=== PATIENT | female | born 1930 | race Caucasian/White ===

== ENCOUNTER → 2016-11-17 | Outpatient (CLI) | payer OTHER, MEDICARE ==
[~2016-11-17] MED LIST: ATOR-22 PO; DIPH-437 PO; FLUO40CA8 PO; [UNRECOGNIZED DRUG - REMARK] PO
--- NOTE | 2016-11-17 15:57 | DIAGNOSTIC IMAGING REPORT ---
RIGHT ANKLE MIN 3 VIEWS ROUTINE CLINICAL HISTORY: RIGHT ANKLE PAIN M25.571 Right pain COMPARISON: None. DISCUSSION: Mild lateral soft tissue edema. Ankle mortise is aligned anatomically. No acute bony abnormality. Heel spur. IMPRESSION: Heel spur. Mild soft tissue edema. No acute bony abnormality. Electronically signed by: Peter Santillan M.D. 11/17/2016 3:56 PM Dictated Date/Time: 11/17/2016 3:55 PM
== END | disposition home or self-care (01) ==
LOC: C.RAD 15:38
PROVIDERS: ATTEND Family Medicine
DX: M25.571 Pain in right ankle and joints of right foot (principal); M77.31 Calcaneal spur, right foot

== ENCOUNTER → 2018-01-12 | Outpatient (CLI) | payer OTHER, MEDICARE ==
--- NOTE | 2018-01-12 11:21 | DIAGNOSTIC IMAGING REPORT ---
L HIP UNILATERAL 2 VIEWS CLINICAL HISTORY: Left hip pain. COMPARISON: CT of the abdomen and pelvis March 05, 2009. FINDINGS: Alignment of the left hip is anatomic. There is no fracture, suspicious lesion or evidence for avascular necrosis. There is mild joint space narrowing and osteophytosis of the left hip. There is extensive vascular calcification. IMPRESSION: 1. No acute fracture. 2. Mild to moderate left hip osteoarthritis. Electronically signed by: Evin Su M.D. 01/12/2018 11:19 AM Dictated Date/Time: 01/12/2018 11:18 AM
[2018-01-12 12:16] LABS: ALBUMIN 3.7 gm/dl (3.4-5.0); ALT/SGPT 27 U/L (12-78); AST/SGOT 22 U/L (15-37); BLOOD UREA NITROGEN 18 mg/dl (7-18); CALCIUM 8.7 mg/dl (8.5-10.1); CARBON DIOXIDE 29 mmol/L (21-32); CREATININE 1.01 mg/dl (0.60-1.20); GLUCOSE 92 mg/dl (70-99); POTASSIUM 3.9 mmol/L (3.5-5.1); SODIUM 137 mmol/L (136-145)
[2018-01-12 12:19] LABS: ALKALINE PHOSPHATASE 82 U/L (45-117)
--- NOTE | 2018-01-12 13:06 | DIAGNOSTIC IMAGING REPORT ---
LUMBAR SPINE 5 VIEWS CLINICAL HISTORY: Left hip pain. Low back pain. FINDINGS: Five views of the lumbar spine are correlated with abdominal CT dated 03/05/2009. The skeletal structures are osteopenic. There is no radiographic evidence of fracture or malalignment. Vertebral body height and alignment are maintained throughout the lumbar spine. There is mild to moderate lumbar levocurvature centered at L3. Large anterior and lateral marginal osteophytes are seen throughout. The transverse and spinous processes are intact as visualized. There is no evidence of spondylolysis. Advanced facet arthropathy seen in the lower lumbar region. There is advanced disc space narrowing at L1-L2 and L2-L3 with associated endplate sclerosis. Moderate disc space narrowing is seen at the remaining lumbar levels. There is straightening of the lumbar lordosis with mild reversal centered at L2-L3. The visualized bony pelvis appears intact. Sclerotic change is seen in the sacroiliac joints. There is advanced atherosclerotic calcification of the abdominal aorta. No bowel obstruction is identified. A 1.8 cm renal calculus projects over the right lateral pelvis/proximal right ureter. Clustered calculi in the lower pole of the left kidney measure up to 1.7 cm. Numerous phleboliths are noted in the pelvis. IMPRESSION: 1. No acute bony abnormality is seen involving the lumbar spine. 2. Osteopenia with advanced lumbosacral spondylosis and scoliosis as above. 3. Bilateral renal calculi as above. The large right renal calculus projects over the right renal pelvis/proximal ureter. Clinical correlation will be required. Dictated: 01/12/2018 11:18 AM Transcribed: 01/12/2018 1:05 PM Grace Electronically signed by: Jose F Cohn M.D. 01/12/2018 1:09 PM Dictated Date/Time: 01/12/2018 11:18 AM
== END | disposition home or self-care (01) ==
LOC: C.LAB 10:34
PROVIDERS: ATTEND Nurse Practitioner Family
DX: R30.0 Dysuria (principal); R31.0 Gross hematuria; M16.12 Unilateral primary osteoarthritis, left hip; M85.88 Other specified disorders of bone density and structure, other site; M47.817 Spondylosis without myelopathy or radiculopathy, lumbosacral region; M41.9 Scoliosis, unspecified; N20.0 Calculus of kidney; Z88.2 Allergy status to sulfonamides; Z88.8 Allergy status to other drugs, medicaments and biological substances

== ENCOUNTER → 2018-01-26 | Outpatient (CLI) | payer OTHER, MEDICARE ==
[~2018-01-26] MED LIST changes: +OPTIRAY 320 IV PRN
--- NOTE | 2018-01-26 09:29 | DIAGNOSTIC IMAGING REPORT ---
CT UROGRAM CLINICAL HISTORY: Gross hematuria. COMPARISON STUDY: Abdominal CT dated 03/05/2009. TECHNIQUE: Before and following the IV administration of 120 cc of Optiray 320, CT urogram of the abdomen and pelvis is performed from the lung bases to the proximal femora. Images are reviewed in the axial, sagittal, and coronal planes. IV contrast was administered without complication. A dose lowering technique was utilized adhering to the principles of ALARA. CT DOSE: 797.55 mGycm FINDINGS: Lung bases: The heart is normal in size and without pericardial effusion. The coronary arteries and mitral annulus are densely calcified. There is a tiny hiatal hernia. A small fat-containing Bochdalek hernia is seen at the left lung base and there is elevation of left hemidiaphragm. No airspace consolidation or pleural effusion is seen. A large fat-containing Bochdalek hernia is seen at the right lung base. Liver: The contrast-enhanced liver is normal in size, contour, and attenuation. There is no intrahepatic biliary ductal dilatation. The hepatic veins and portal veins are patent. A 1.8 cm cyst is noted in the left hepatic lobe. Additional subcentimeter hypodensities also likely represent cysts but are too small for definitive characterization. Gallbladder: Unremarkable. Spleen: Normal in size and attenuation. Pancreas: Moderately atrophic and grossly unremarkable. Adrenal glands: Unremarkable. Kidneys and ureters: The contrast enhanced kidneys are atrophic, asymmetrically greater on the right. There is a 14 x 7 x 12 mm obstructing calculus in the mid right ureter seen on image #198 of the unenhanced series at the level of L4-L5. This causes moderate to severe right-sided hydroureteronephrosis. No additional right renal calculi are identified. A 14 mm nonobstructing calculus is also seen in the lower pole of left kidney. There is no left-sided hydronephrosis. There is slightly heterogeneous enhancement of the right kidney as compared to the left. There is pooling of contrast within the dilated right renal collecting system with no opacification of the right ureter during the examination. There is no enhancing renal cortical mass lesion identified. There is no evidence of urothelial lesion within the renal pelvis bilaterally or along the course of either ureter, noting nonopacification of the right ureter. Small parapelvic cysts are noted in the left. Abdominal vasculature: The abdominal aorta is normal in course and caliber noting advanced atherosclerotic calcification. Bowel: There is moderate colonic fecal retention. No bowel obstruction is seen. There is mild colonic diverticulosis without CT evidence of acute diverticulitis. The appendix is well-visualized and normal. There are duodenal diverticula. Peritoneum: There is no intraperitoneal free air or abdominal ascites. Lymphadenopathy: None. Pelvic viscera: The bladder wall is mildly trabeculated. A small diverticulum is seen posteriorly on the right measuring up to 9 mm. A 3.6 cm heterogeneously enhancing mass is identified within the left aspect of the uterine fundus. This was also seen in 2009 and likely represents a fibroid. No adnexal lesion is identified. Skeletal structures: The skeletal structures are osteopenic. There is moderate to advanced lumbar sacral spondylosis as well as scoliosis. No lytic or blastic lesions are seen. IMPRESSION: 1. There is a 14 mm obstructing calculus in the mid right ureter which causes moderate to severe right-sided hydroureteronephrosis. 2. No additional right renal calculi identified. There is a 14 mm nonobstructing left renal calculus. 3. There is no enhancing renal cortical mass, and no evidence of urothelial lesion involving the ureters. 4. A small bladder diverticulum is noted. 5. Fibroid uterus. 6. Additional findings as above. Electronically signed by: Jose F Cohn M.D. 01/26/2018 9:28 AM Dictated Date/Time: 01/26/2018 8:56 AM
== END | disposition home or self-care (01) ==
LOC: C.CTS 08:28
PROVIDERS: ATTEND Urology
DX: N20.2 Calculus of kidney with calculus of ureter (principal); D25.9 Leiomyoma of uterus, unspecified; N32.3 Diverticulum of bladder

== ENCOUNTER → 2018-02-01 | Day surgery (SDC) | payer OTHER, MEDICARE ==
[2018-01-28 11:48] VITALS: BMI 25.0
--- NOTE | 2018-01-28 12:10 | PAT Medication Instructions ---
Service Date January 28, 2018. Current Home Medication List Acetaminophen (Tylenol), 500 MG PO PRN Acetaminophen/Diphenhydramine (Tylenol Pm), 1 TAB PO HS Aspirin (Aspirin Ec), 81 MG PO QAM Atorvastatin (Lipitor), 20 MG PO QAM Fluoxetine (Prozac), 60 MG PO QAM Meloxicam (Mobic), 15 MG PO QAM Multivitamins/Minerals (Mvi With Minerals), 1 TAB PO QAM Travoprost (Travatan Z), 1 DROPS OP HS Medication Instructions For Your Scheduled Surgery - Held at surgeon's request: Aspirin (Aspirin Ec), 81 MG PO QAM Meloxicam (Mobic), 15 MG PO QAM - Hold the following medications the morning of surgery: Multivitamins/Minerals (Mvi With Minerals), 1 TAB PO QAM - Take the following medications the morning of surgery with a sip of water OTHERWISE NOTHING TO EAT OR DRINK AFTER MIDNIGHT: Atorvastatin (Lipitor), 20 MG PO QAM Fluoxetine (Prozac), 60 MG PO QAM Acetaminophen (Tylenol), 500 MG PO PRN (may take if needed up to 4 hours prior to surgery) - Take the following medications as scheduled the night before surgery: Acetaminophen/Diphenhydramine (Tylenol Pm), 1 TAB PO HS Travoprost (Travatan Z), 1 DROPS OP HS Acetaminophen (Tylenol), 500 MG PO PRN If you have any questions please call us at [phone] or [phone] or [phone]
--- NOTE | 2018-01-28 12:56 | DIAGNOSTIC IMAGING REPORT ---
CHEST 2 VIEWS ROUTINE CLINICAL HISTORY: Preoperative chest COMPARISON STUDY: CT scan dated 01/26/2018 FINDINGS: The heart is normal in size. There is no failure. There is no focal pulmonary consolidation. There are no pleural effusions. There is a 7 mm opacity at the left lung base. On the recent CT scan, this resembles focal atelectatic change. Degenerative changes are present within the dorsal spine.[ IMPRESSION: 1. No active disease in the chest 2. 7 mm opacity at the left lung base. This corresponds to an area of focal atelectasis on the recent CT scan. Electronically signed by: Jeet Marcus M.D. 01/28/2018 12:55 PM Dictated Date/Time: 01/28/2018 12:53 PM
[2018-01-28 14:30] LABS: BASO % 0.5 %; BASO ABS # 0.04 K/uL (0-0.2); EOS % 2.3 %; EOS ABS # 0.18 K/uL (0-0.5); HEMATOCRIT 42.7 % (37-47); HEMOGLOBIN 14.3 g/dL (12.0-16.0); IG# 0.02 K/uL (0.00-0.02); LYMPH % 23.5 %; LYMPH ABS # 1.84 K/uL (1.2-3.4); MEAN CELL VOLUME 96.8 fL (80-100); MEAN CORPUSCULAR HEMOGLOBIN 32.4 pg (25-34); MEAN CORPUSCULAR HGB CONC 33.5 g/dl (32-36); MEAN PLATELET VOLUME 10.3 fL (7.4-10.4); MONO ABS # 0.55 K/uL (0.11-0.59); NEUT % 66.4 %; PLATELET COUNT 263 K/uL (130-400); RED CELL DISTRIBUTION WIDTH SD 49.3 fL (36.4-46.3); WHITE BLOOD COUNT 7.83 K/uL (4.8-10.8)
[2018-01-28 14:51] LABS: CALCIUM 8.7 mg/dl (8.5-10.1); CREATININE 0.94 mg/dl (0.60-1.20); POTASSIUM 4.5 mmol/L (3.5-5.1)
[~2018-02-01] VITALS: Ht 157.5 cm; Wt 62.1 kg
[~2018-02-01] MED LIST changes: +ACET-1256 PO; +ASPI81TA28 PO; +ATROPINE SULFATE 0.1 MG/ML 5ML SYR IV PRN; +CHECK SCOPOLAMINE PATCH PLACEMENT SCH; +CIPR-255 PO; +CIPROFLOXACIN / D5W 400 MG IV SCH; +Cysto-Conray II 17.2% 250ML BOTTLE ONE; +DEXAMETHASONE SOD INJ 4 MG/ML VIAL ONE; +EpHEDrine SULFATE 50MG/5ML SYR ONE; +EpHEDrine SULFATE INJ 50 MG/ML AMP IV PRN; +EpHEDrine SULFATE INJ 50 MG/ML AMP ONE; +FENTANYL CITRATE INJ 50 MCG/1 ML 2 ML VIAL IV PRN; +FENTANYL CITRATE INJ 50 MCG/1 ML 2 ML VIAL ONE; +HydrALAZINE HCL 20 MG/ML VIAL ONE; +LIDOCAINE HCL 2% 2 ML VIAL (20MG/ML) ONE; +MELO7.5T5 PO; +MULT-513 PO; +NURSING VERBAL MED ORDER ONE; +ONDANSETRON INJ 2 MG/ML 2 ML VIAL IV PRN; +ONDANSETRON INJ 2 MG/ML 2 ML VIAL ONE; -OPTIRAY 320 IV PRN; +OXYC7.5T65 PO; +OXYCODONE/ACETAMINOPHEN 7.5-325 TAB PO PRN; +PHEN-775 PO; +PHENYLEPHRINE 100MCG/ML 5ML SYR ONE; +PROMETHAZINE HCL INJ 6.25 MG in SODIUM CHLORIDE 0.9% 50ML 50 ML IV ONE; +PROPOFOL IV EMULSION 10 MG/ML 20 ML VIAL ONE; +SCOPOLAMINE 1.5 MG TDSY TD ONE; +SODIUM CHLORIDE 0.9% 1000ML 1,000 ML IV SCH; +TRAV0.00 OP; -[UNRECOGNIZED DRUG - REMARK] PO
--- NOTE | 2018-02-01 07:04 | History & Physical Bridge Note ---
H&P Re-Evaluation Bridge Note: I have examined the patient, reviewed the History & Physical and in the interval since the performance of the History & Physical I have noted the following changes of clinical significance: No changes noted
[2018-02-01 07:11] VITALS: BP 182/77; PULSE 82; TEMP 36.5; O2SAT 97; Ht 157.5 cm; Wt 62.1 kg
--- NOTE | 2018-02-01 07:32 | Discharge Instructions ---
Discharge Instructions Date of Service February 01, 2018. Admission Reason for Admission: Stones Discharge Discharge Diagnosis / Problem: Bilateral stones Discharge Goals Goal(s): Decrease discomfort, Improve function Activity Recommendations Activity Limitations: resume your previous activity Lifting Limitations: gradually increase as tolerated Exercise/Sports Limitations: gradually increase as tolerated Shower/Bathe: no limitations . Instructions / Follow-Up Instructions / Follow-Up May have blood in urine. May have discomfort. Call if any fevers or chills. Call if any issues or concerns. Current Hospital Diet Patient's current hospital diet: Discharge Diet Recommended Diet: Regular Diet Procedures Procedures Performed: Cystoscopy, Bilateral stents, Right ureteroscopy and laser lithotripsy Pending Studies Studies pending at discharge: no Medical Emergencies . Who to Call and When: Medical Emergencies: If at any time you feel your situation is an emergency, please call 911 immediately. . Non-Emergent Contact Non-Emergency issues call your: Primary Care Provider, Urologist Call Non-Emergent contact if: you have a fever, temperature is above 101, temperature is above 101.5, your pain is not controlled, your pain is worsening , your pain is unusual for you . . "Provider Documentation" section prepared by Tejas Arguelles. .
--- NOTE | 2018-02-01 10:35 | [facility] Operative Report ---
Operative Report Operative Date February 01, 2018. Pre-Operative Diagnosis Bilateral Large Stones Post-Operative Diagnosis Same Procedure(s) Performed Cystoscopy, Bilateral retrograde pyelograms and stent placement. Right Ureteroscopy, laser lithotripsy, stone basket extraction. Surgeon Blane Estimated Blood Loss Minimal Findings Bilateral large stones with right obstructing stone Specimens Stone fragment right. Drains 6 Fr Multilength stents bilateral Anesthesia Type General Complication(s) none Disposition Recovery Room / PACU Indications Large bilateral stones with right obstruction. Approx 1.5 cm on each side. Risks and benefits discussed. Description of Procedure Patient was consented and brought back to the operating room. Patient was placed under anesthesia in the supine position and moved to the dorsal lithotomy position. Patient was prepped and draped in the regular sterile fashion. A time out was completed. A 30degree Cystoscope was placed into the bladder and the entire bladder was examined. The UO's were identified. The UO was cannulized first on the left with a catheter and a retrograde pyelogram was completed. A wire was then placed. A 6 Fr multi length stent was placed. It was confirmed in good position on fluoroscopy. The right was then cannulized and a retrograde pyelogram completed. A wire was placed. A short rigid scope was taken into the right ureter up to the stone at the mid ureter. The stone was was then pulverized with a laser to small fragments and dust. The scope was advanced to the proximal ureter. The scope was removed. A ureteral access sheath and second safety wire was placed. The flexible ureteroscope was taken into the left ureter. The entire ureter and renal pelvis were examined. The stones were identified. A laser fiber was selected and the stones were pulverized to dust and small fragments. Larger fragments were grasped and removed and sent for analysis. The entire area was once again examined. No residual large fragments or areas of concern were noted. The scope was slowly removed with the wire left in place. Contrast was placed through the scope for a pyelogram to assist in stent placement. The entire ureter was examined as the scope was slowly removed. No obstructions or other areas of concern were noted. With the wire in place, it was backloaded onto the cystoscope, and a 6 Fr Double J stent was placed. It was confirmed with fluoroscopy. With the stent in place, the bladder was emptied. The scope was removed. The patient was cleaned, aroused from anesthesia, and transferred to the pacu in stable condition having tolerated the procedure well with no complications. I was present and participated in all aspects of the procedure. The patient will be monitored in the PACU until transferred. I attest to the content of the Intraoperative Record and any orders documented therein. Any exceptions are noted below.
--- NOTE | 2018-02-01 10:55 | DIAGNOSTIC IMAGING REPORT ---
RETROGRADE INCLUDES KUB HISTORY: BILATERAL LITHOTRIPSY/STENT INSERTION FLUOROSCOPY TIME: 122 seconds. FINDINGS: 7 fluoroscopic spot images were submitted for review. Initial images demonstrate retrograde opacities in the left renal collecting system with placement of a left ureteral stent. Filling defect at the left ureteropelvic junction may represent a gas bubble. There is also retrograde opacification of the right renal collecting system. The 14 mm mid right ureteral stone is noted. A right ureteral stent was placed and decompresses the dilated right renal collecting system. Final images demonstrate extraction of the mid right ureteral stone. IMPRESSION: Fluoroscopy provided for bilateral ureteral stent placement and extraction of a mid right ureteral stone.. Electronically signed by: Arley Osorio M.D. 02/01/2018 10:54 AM Dictated Date/Time: 02/01/2018 10:53 AM
[2018-02-01] MEDS: FENTANYL CITRATE INJ 50 MCG/1 ML 2 ML VIAL IV PRN ×8 (11:16→12:25)
--- NOTE | 2018-02-01 11:29 | Anesthesiology Progress Note ---
Anesthesia Post Op Note Date & Time February 01, 2018 at 11:29 Vital Signs Pain Intensity: 3.0 Vital Signs Past 12 Hours Date Time Temp Pulse Resp B/P (MAP) Pulse Ox O2 Delivery O2 Flow Rate FiO2 02/01/18 11:13 36.5 02/01/18 11:12 183/60 02/01/18 11:10 71 20 02/01/18 11:10 71 20 92 02/01/18 11:06 180/75 02/01/18 11:05 71 18 02/01/18 11:05 70 18 92 02/01/18 11:01 183/68 02/01/18 11:00 70 19 02/01/18 11:00 70 19 99 02/01/18 10:56 186/88 02/01/18 10:55 73 19 98 02/01/18 10:55 72 19 02/01/18 10:51 171/71 02/01/18 10:50 65 14 02/01/18 10:50 64 14 100 02/01/18 10:46 175/77 02/01/18 10:45 81 15 100 02/01/18 10:45 68 15 02/01/18 10:41 167/68 02/01/18 10:35 36.5 68 16 170/70 100 Oxymask 7 02/01/18 07:11 36.5 82 18 182/77 (112) 97 Room Air Notes Mental Status: alert / awake / arousable, participated in evaluation Pt Amnestic to Procedure: Yes Nausea / Vomiting: adequately controlled Pain: adequately controlled Airway Patency, RR, SpO2: stable & adequate BP & HR: stable & adequate Hydration State: stable & adequate Anesthetic Complications: no major complications apparent
[2018-02-01 13:43] VITALS: BP 167/72; PULSE 82; TEMP 36.4; O2SAT 93
[2018-02-01 14:11] VITALS: BP 162/70; PULSE 82; TEMP 36.6; O2SAT 94
== END | disposition home or self-care (01) ==
LOC: C.ACU 01-28 11:19
PROVIDERS: ATTEND Urology
DX: N20.0 Calculus of kidney (principal); N20.1 Calculus of ureter; R30.0 Dysuria; H40.9 Unspecified glaucoma; F41.9 Anxiety disorder, unspecified; F32.9 Major depressive disorder, single episode, unspecified; R31.0 Gross hematuria; R32 Unspecified urinary incontinence; F17.200 Nicotine dependence, unspecified, uncomplicated; Z79.82 Long term (current) use of aspirin; Z79.899 Other long term (current) drug therapy

== ENCOUNTER → 2018-03-31 | Outpatient (CLI) | payer OTHER, MEDICARE ==
[~2018-03-31] MED LIST changes: -ATROPINE SULFATE 0.1 MG/ML 5ML SYR IV PRN; -CHECK SCOPOLAMINE PATCH PLACEMENT SCH; -CIPR-255 PO; -CIPROFLOXACIN / D5W 400 MG IV SCH; -Cysto-Conray II 17.2% 250ML BOTTLE ONE; -DEXAMETHASONE SOD INJ 4 MG/ML VIAL ONE; -EpHEDrine SULFATE 50MG/5ML SYR ONE; -EpHEDrine SULFATE INJ 50 MG/ML AMP IV PRN; -EpHEDrine SULFATE INJ 50 MG/ML AMP ONE; -FENTANYL CITRATE INJ 50 MCG/1 ML 2 ML VIAL IV PRN; -FENTANYL CITRATE INJ 50 MCG/1 ML 2 ML VIAL ONE; -HydrALAZINE HCL 20 MG/ML VIAL ONE; -LIDOCAINE HCL 2% 2 ML VIAL (20MG/ML) ONE; -NURSING VERBAL MED ORDER ONE; -ONDANSETRON INJ 2 MG/ML 2 ML VIAL IV PRN; -ONDANSETRON INJ 2 MG/ML 2 ML VIAL ONE; +OXYC-57 PO; -OXYC7.5T65 PO; -OXYCODONE/ACETAMINOPHEN 7.5-325 TAB PO PRN; -PHEN-775 PO; -PHENYLEPHRINE 100MCG/ML 5ML SYR ONE; -PROMETHAZINE HCL INJ 6.25 MG in SODIUM CHLORIDE 0.9% 50ML 50 ML IV ONE; -PROPOFOL IV EMULSION 10 MG/ML 20 ML VIAL ONE; -SCOPOLAMINE 1.5 MG TDSY TD ONE; -SODIUM CHLORIDE 0.9% 1000ML 1,000 ML IV SCH
--- NOTE | 2018-03-31 14:22 | DIAGNOSTIC IMAGING REPORT ---
RENAL ULTRASOUND HISTORY: URETER STONE COMPARISON: KUB 03/19/2018. Abdomen and pelvis CT 01/16/2018. FINDINGS: Right kidney: 10 cm. Moderate hydroureteronephrosis. There is mild urothelial thickening within the right renal pelvis. Normal corticomedullary differentiation and cortical thickness. There appears to be a 9 mm stone within the lower pole. Left kidney: 10.7 cm. Mild left hydronephrosis. There are 2 stones seen within the left kidney which measure 1 cm and 9 mm in size. Normal corticomedullary differentiation and cortical thickness. Bladder: No bladder wall thickening. IMPRESSION: 1. Moderate right and mild left hydronephrosis. 2. There is also dilatation of the right ureter with mild urothelial thickening. 3. Bilateral nephrolithiasis. Electronically signed by: Arley Osorio M.D. 03/31/2018 2:20 PM Dictated Date/Time: 03/31/2018 2:17 PM
== END | disposition home or self-care (01) ==
LOC: C.ULTR 13:06
PROVIDERS: ATTEND Urology
DX: N13.2 Hydronephrosis with renal and ureteral calculous obstruction (principal)

== ENCOUNTER → 2018-04-13 | Outpatient (CLI) | payer OTHER, MEDICARE ==
--- NOTE | 2018-04-13 08:46 | DIAGNOSTIC IMAGING REPORT ---
KUB CLINICAL HISTORY: R31.0 Gross [id number] hematuria COMPARISON STUDY: 03/19/2018 FINDINGS: Interval removal of the bilateral ureteral stents. Bilateral nephrocalcinosis. Most part unchanged. 7 mm dominant calcification lower pole left kidney unchanged. No well-defined paravertebral calcifications. IMPRESSION: Bilateral nephrocalcinosis unchanged in the prior study. No new or interval process. The above report was generated using voice recognition software. It may contain grammatical, syntax or spelling errors. Electronically signed by: Peter Santillan M.D. 04/13/2018 8:45 AM Dictated Date/Time: 04/13/2018 8:44 AM
== END | disposition home or self-care (01) ==
LOC: C.RAD 08:29
PROVIDERS: ATTEND Urology
DX: R31.0 Gross hematuria (principal); E83.59 Other disorders of calcium metabolism; N29 Other disorders of kidney and ureter in diseases classified elsewhere

== ENCOUNTER → 2018-04-13 | Outpatient (CLI) | payer OTHER, MEDICARE | END | disposition home or self-care (01) | LOC: C.LABSPEC 17:39 | PROVIDERS: ATTEND Urology | DX: N20.0 Calculus of kidney (principal) ==

== ENCOUNTER 2019-09-13 08:47 | Inpatient (IN) ==
[2019-09-13] MEDS ORDERED: MoRPHine SULFATE 4 MG/ML 1 ML CARP\\VIAL IV STA (09:12)
[2019-09-13] MEDS ORDERED: SODIUM CHLORIDE 0.9% 1000ML 1,000 ML IV SCH (09:15)
[2019-09-13] MEDS ORDERED: MoRPHine SULFATE 2 MG/ML CARP ONE (09:38)
--- NOTE | 2019-09-13 09:40 | XRay Report ---
XR pelvis 1-2V routine CLINICAL HISTORY: r hip pain pain COMPARISON: 01/12/2018 DISCUSSION: Subcapital fracture right hip. Mild superior migration right femoral shaft. Generalized degenerative change throughout all remaining bony structures. There is no evidence for so ft tissue swelling. IMPRESSION: Subcapital fracture right hip. ACT 112: Negative or not required by law. The above report was generated using voice recognition software. It may contain grammatical, syntax or spelling errors. Electronically signed by: Peter Santillan M.D. 09/13/2019 9:39 AM
--- NOTE | 2019-09-13 09:41 | XRay Report ---
XR hip RT 2V w pelvis CLINICAL HISTORY: r hip pain pain COMPARISON: None. DISCUSSION: Subcapital fracture right hip. Superior migration right femoral shaft. No evidence for di slocation. Degenerative change of all remaining bony structures. There is no evidence for soft tissue swelling. IMPRESSION: Subcapital fracture right hip. ACT 112: Negative or not required by law. The above report was generated using voice recognition software. It may contain grammatical, syntax or spelling errors. Electronically signed by: Peter Santillan M.D. 09/13/2019 9:40 AM
[2019-09-13 09:42] LABS: Appearance Urine Clear (Clear); Bacteria Urine Automated Negative (Negative); Bilirubin Urine Negative (Negative); Blood Urine Trace (Negative); Color Urine Yellow; Glucose Urine UA Negative (Negative); Ketones Urine Negative (Negative); Leukocyte Esterase Urine Trace (Negative); Nitrite Urine Negative (Negative); Protein Urine Negative (Negative); Specific Gravity Urine 1.016 (1.000-1.030); Urobilinogen Urine Negative (Negative); pH Urine 6.5 (4.5-7.5)
--- NOTE | 2019-09-13 09:42 | XRay Report ---
XR chest 1V portable CLINICAL HISTORY: fall trauma COMPARISON STUDY: 09/05/2019 FINDINGS: The bones soft tissues and hemidiaphragms are normal. The cardiomediastinal silhouette is n ormal. The lungs are clear. The pulmonary vasculature is normal. IMPRESSION: Negative chest. ACT 112: Negative or not required by law. The above report was generated using voice recognition software. It may contain grammatical, syntax or spelling errors. Electronically signed by: Peter Santillan M.D. 09/13/2019 9:40 AM
[2019-09-13] MEDS ORDERED: MoRPHine SULFATE 4 MG/ML 1 ML CARP\\VIAL IV ONE (09:45)
[2019-09-13 09:49] LABS: Basophils # (auto) 0.03 K/uL (0-0.2); Basophils % (auto) 0.2 %; Eosinophils # (auto) 0.08 K/uL (0-0.5); Eosinophils % (auto) 0.5 %; Hematocrit (blood only) 40.8 % (37-47); Immature Granulocytes # (auto) 0.12 K/uL (0.00-0.02); Immature Granulocytes % (auto) 0.8 %; Lymphocytes # (auto) 1.25 K/uL (1.2-3.4); Lymphocytes % (auto) 8.2 %; Mean Corpuscular Hemoglobin 33.1 pg (25-34); Mean Corpuscular Hgb Conc 34.3 g/dL (32-36); Mean Corpuscular Volume 96.5 fL (80-100); Mean Platelet Volume 9.5 fL (7.4-10.4); Monocytes # (auto) 1.54 K/uL (0.11-0.59); Monocytes % (auto) 10.1 %; Neutrophils # (auto) 12.25 K/uL (1.4-6.5); Neutrophils % (auto) 80.2 %; Platelet Count 454 K/uL (130-400); RDW Coefficient of Variation 14.2 % (11.5-14.5); RDW Standard Deviation 49.7 fL (36.4-46.3); Red Blood Count 4.23 M/uL (4.2-5.4); White Blood Count 15.27 K/uL (4.8-10.8)
[2019-09-13 09:58] LABS: INR 1.1 (0.9-1.1); Prothrombin Time 10.9 Seconds (9.0-12.0)
--- NOTE | 2019-09-13 10:05 | CT Scan Report ---
CT head/brain wo con CT DOSE: 537.48 mGy.cm HISTORY: Trauma fall hit head TECHNIQUE: Multiaxial CT images of the head were performed without the use of intravenous contrast. A dose lowering technique was utilized adhering to the principles of ALARA. Comparison: 09/05/2018 Findings: The paranasal sinuses and mastoid air cells are clear. The calvarium and skull base are int act. The ventricles and sulci are within normal limits. There is no mass, hematoma, midline shift, or acute infarct. Age-related chronic small vessel change and atrophy. Impression: No acute intracranial abnormality. Chronic and age-related change. ACT 112: Negative or not required by law. The above report was generated using voice recognition software. It may contain grammatical, syntax or spelling errors. Electronically signed by: Peter Santillan M.D. 09/13/2019 10:03 AM
[2019-09-13 10:10] LABS: Alanine Aminotransferase 20 U/L (12-78); Albumin Globulin Ratio 0.8 (0.9-2); Albumin Level 3.2 gm/dl (3.4-5.0); Alkaline Phosphatase 58 U/L (45-117); Aspartate Aminotransferase 25 U/L (15-37); BUN Creatinine Ratio 23.2 (10-20); Bilirubin,Total 0.6 mg/dl (0.2-1); Blood Urea Nitrogen 28 mg/dl (7-18); Calcium 9.4 mg/dl (8.5-10.1); Carbon Dioxide 25 mmol/L (21-32); Chloride 95 mmol/L (98-107); Est GFR (African American) 47.1; Est GFR (Non-African American) 40.6; Globulin 3.9 gm/dl (2.5-4.0); Glucose 102 mg/dl (70-99); Potassium 4.2 mmol/L (3.5-5.1); Sodium 129 mmol/L (136-145); Total Protein 7.1 gm/dl (6.4-8.2); Troponin I < 0.015 ng/ml (0-0.045)
[2019-09-13] MEDS ORDERED: fentaNYL citrate 100 MCG/2 ML VIAL IV ONE (10:35)
--- NOTE | 2019-09-13 11:50 | History & Physical Report ---
Date of Service September 13, 2019 Assessment & Plan (1) Hip fracture: 89-year-old female status post mechanical fall resulting in right subcapital hip fracture 4 days ago. Patient in considerable discomfort. Extremity is neurovascularly intact. Patient with no known history of cardiovascular disease, CHF or pulmonary disease. Her functional status is limited secondary to poor balance. She reports never having chest pain or dyspnea that has limited her activity. Per RCRI assessment for preoperative risk patient is low risk for perioperative major adverse cardiac event. She may proceed to surgery with no additional testing. Admit to medical floor Neurovascular checks every 4 hours Pain control with Tylenol, oxycodone 5 mg p.o. every 4 hours as needed and Dilaudid 0.5 mg IV every 2 hours as needed. Will adjust as necessary Check urine culture N.p.o. after midnight -We will hold lisinopril/HCTZ to avoid intraoperative hypotension Hold aspirin [facility] orthopedic consultationappreciate assistance -Close monitoring of postoperative wound. Patient elderly, on chronic steroids and an active smoker which all may inhibit healing Present on Admission?: Yes (2) Leukocytosis: Patient with elevated WBC = 15.27. She denies fever. No obvious source of infection. Possibly reactive in setting of recent trauma. Patient also on chronic steroids, prednisone 10 mg p.o. daily. Urine culture ordered Repeat CBC in a.m. Present on Admission?: Yes (3) Hyponatremia: Sodium = 129. Patient reports decreased appetite and poor oral intake over the last few days. She appears clinically dry on exam. Suspect hypovolemic hyponatremia. IV hydration with normal saline at 80 mL/h x 2 L -Repeat BMP at 1800 to assess sodium level Present on Admission?: Yes (4) Hypertension: Blood pressure elevated, 164/85 Pain control as above Holding HCTZ/lisinopril for now. Continue to monitor. Present on Admission?: Yes (5) Hyperlipidemia: Chronic. Stable. Continue atorvastatin 20 mg p.o. daily Present on Admission?: Yes (6) Glaucoma: Chronic. Stable. Continue latanoprost drops Present on Admission?: Yes (7) Rheumatoid arthritis: Chronic. Stable. Continue prednisone 10 mg p.o. daily. Close monitoring of postoperative wound healing Continue sulfasalazine 500 mg p.o. 3 times daily We will hold meloxicam 15 mg for now (8) Depression: Patient reports experiencing depressive symptoms after her 2 years ago. States that her moods have since improved Continue duloxetine 20 mg p.o. daily Present on Admission?: Yes (9) Insomnia: Chronic. Continue Benadryl p.o. nightly (10) Tobacco use: Patient reports smoking approximately 1/2 pack/day. Encouraged her to quit smoking. -Nicotine patch. Patient reports trying this in the past and having some mild skin irritation but wishes to try it again F/E/Nnormal saline at 80 mL/h x 2 L. Monitor electrolytes and replete as needed. Will check mag and phosphorus x1. Repeat BMP at 1800 to assess sodium. Heart healthy diet. N.p.o. after midnight for possible surgery. ProphylaxisSCDs to bilateral lower extremities Codefull per discussion with patient, family at bedside Dispositionadmit to medical floor Present on Admission?: Yes History of Present Illness Chief Complaint: Right hip pain Primary Care Provider: Ben Schmidt Afia Dumont is a pleasant 89-year-old female with history of hypertension, hyperlipidemia and rheumatoid arthritis presenting with subcapital fracture of the right hip. Patient reports that on 09/09/2019 she was ambulating from her living room to her kitchen when she lost her balance and fell onto her right side. She had severe pain in the right hip immediately following the fall. She has been ambulating using a walker with some difficulty for the last 5 days. She reports she bumped her head slightly during the fall but denies loss of consciousness. Denies chest pain/palpitations/dizziness/syncope. She is complaining of left ankle pain Patient's 2 years ago. Family reports a progressive decline in patient's functional status since then. She is fairly sedentary and has poor balance. ER course: Fentanyl x 25 mcg, morphine x 4 mg, 4 mg, 2 mg, normal saline x 1 L Allergies Allergy/AdvReac Type Severity Reaction Status Date / Time Sulfa (Sulfonamide Allergy Unknown Rash Verified 09/13/19 10:58 Antibiotics) nicotine AdvReac Mild PATCH-SKIN Verified 09/13/19 10:58 IRRITATION Home Medications Home Medications Medication Instructions Recorded Confirmed Type Centrum Silver Women 1 tab PO QAM 07/06/18 09/13/19 History aspirin 81 mg PO QAM 07/06/18 09/13/19 History latanoprost 1 drp OPB HS 07/06/18 09/13/19 History acetaminophen [Acetaminophen Extra 500 mg PO DIRECTED PRN 09/05/19 09/13/19 History Strength] atorvastatin 20 mg PO DAILY 09/05/19 09/13/19 History cholecalciferol (vitamin D3) 50 mcg PO DAILY 09/05/19 09/13/19 History [Vitamin D3] diphenhydramine HCl [ZzzQuil] 0 mg PO HS 09/05/19 09/13/19 History duloxetine 20 mg PO DAILY 09/05/19 09/13/19 History lisinopril-hydrochlorothiazide 1 tab PO DAILY 09/05/19 09/13/19 History meloxicam 15 mg PO DAILY 09/05/19 09/13/19 History prednisone 10 mg PO DAILY 09/05/19 09/13/19 History sulfasalazine 500 mg PO TID 09/05/19 09/13/19 History Past Med/Surg History Medical History Anxiety (Chronic) Depression (Chronic) Dyslipidemia (Chronic) Glaucoma (Chronic) Hearing deficit (Chronic) Hyperlipidemia (Chronic) Hypertension Kidney stones (Chronic) Osteoarthritis (Chronic) Rheumatoid arthritis (Chronic) Surgical History History of cataract surgery (Resolved) left History of colonoscopy (Resolved) History of lithotripsy (Resolved) x 2 History of tooth extraction (Resolved) Nausea and vomiting after administration of anesthetic agent (Chronic) Family History (Updated 09/13/19 @ 10:49 by Ivania Cruz) Other No pertinent family history in first degree relatives Social History Preferred Language: Slovak Communication Ability: Effective Financial Planner Required: No Beliefs That Will Affect Care: None Current Living Situation: Alone Other Information That Helps Us Care for You: No Feels Safe at Home: Yes Safety Concerns: Feels Safe At This Time Smoking Status: Current every day smoker Tobacco Type: cigarettes ; Cigarettes Per Day: 10 ; Do You Dip or Chew Tobacco: No ; Second Hand Exposure: No ; Tob acco Cessation Education Requested by Patient: No Hx Alcohol Use: Yes Alcohol type: wine Hx Substance Use: No Review of Systems Review of Systems: All systems reviewed & are unremarkable except as noted in HPI & below Patient endorses occasional chills. Also with occasional nausea and poor appetite for the last few days Chronic urinary incontinence Denies fevers/chest pain/palpitations/shortness of breath/cough/wheeze/abdominal pain/diarrhea/constipation Physical Exam Physical Exam: General: Elderly female resting supine in bed, in moderate pain, non-toxic in appearance, AA&O x 4 Skin: warm, dry, intact, no rashes or lesions HEENT: NC/AT, PERRL, EOMI, anicteric sclera, conjunctiva without injection, external ear normal to inspection and nontender, nares patent, dry mucus membranes, dentition intact, no oropharyngeal lesions, neck supple, trachea midline, no LAD, no thyromegaly, no JVD Heart: +S1/S2, regular, no m/r/g Lungs: equal air entry bilaterally, no rales/rhonchi/wheezes Abd: +BS, soft, NT/ND, no masses/organomegaly/ascites Ext: warm, 2+ pulses in UE/LE bilaterally, no clubbing/cyanosis or edema, right lower extremity neurovascularly intact, externally rotated, tenderness over right hip Neuro: nonfocal, patient AA&O x 4, speech intact, no facial droop, moving all extremities on command with equal strength 5/5, patient hard of hearing Results & Data Vital Signs (Past 12 Hours) Vital Signs Temp Pulse Pulse Resp BP BP Pulse Ox 09/13/19 11:00 87 17 164/85 H 99 09/13/19 09:57 94 H 20 195/81 H 95 09/13/19 09:08 86 20 96 09/13/19 08:53 36.3 C L 95 H 18 161/70 H 93 Laboratory Results Lab Results 09/13/19 09/13/19 09/13/19 Range/Units 09:08 09:08 09:08 WBC 15.27 H (4.8-10.8) K/uL RBC 4.23 (4.2-5.4) M/uL Hgb 14.0 (12.0-16.0) g/dL Hct 40.8 (37-47) % MCV 96.5 (80-100) fL MCH 33.1 (25-34) pg MCHC 34.3 (32-36) g/dL RDW Std Deviation 49.7 H (36.4-46.3) fL RDW Coeff of Chiara 14.2 (11.5-14.5) % Plt Count 454 H (130-400) K/uL MPV 9.5 (7.4-10.4) fL Immature Gran % (Auto) 0.8 % Neut % (Auto) 80.2 % Lymph % (Auto) 8.2 % [place] % (Auto) 10.1 % Eos % (Auto) 0.5 % Baso % (Auto) 0.2 % Immature Gran # (Auto) 0.12 H (0.00-0.02) K/uL Neut # (Auto) 12.25 H (1.4-6.5) K/uL Lymph # (Auto) 1.25 (1.2-3.4) K/uL [place] # (Auto) 1.54 H (0.11-0.59) K/uL Eos # (Auto) 0.08 (0-0.5) K/uL Baso # (Auto) 0.03 (0-0.2) K/uL PT 10.9 (9.0-12.0) Seconds INR 1.1 (0.9-1.1) Sodium 129 L (136-145) mmol/L Potassium 4.2 (3.5-5.1) mmol/L Chloride 95 L (98-107) mmol/L Carbon Dioxide 25 (21-32) mmol/L Anion Gap 9.0 (3-11) BUN 28 H (7-18) mg/dl Creatinine 1.20 (0.6-1.2) mg/dl Est Cr Clr Drug Dosing Not Reportable Est GFR ( Amer) 47.1 Est GFR (Non-Af Amer) 40.6 BUN/Creatinine Ratio 23.2 H (10-20) Glucose 102 H (70-99) mg/dl Calcium 9.4 (8.5-10.1) mg/dl Total Bilirubin 0.6 (0.2-1) mg/dl AST 25 (15-37) U/L ALT 20 (12-78) U/L Alkaline Phosphatase 58 (45-117) U/L Troponin I < 0.015 (0-0.045) ng/ml Total Protein 7.1 (6.4-8.2) gm/dl Albumin 3.2 L (3.4-5.0) gm/dl Globulin 3.9 (2.5-4.0) gm/dl Albumin/Globulin Ratio 0.8 L (0.9-2) Specimen Hemolysis Urine Color Urine Appearance (Clear) Urine pH (4.5-7.5) Ur Specific [place] (1.000-1.030) Urine Protein (Negative) Urine Glucose (UA) (Negative) Urine Ketones (Negative) Urine Blood (Negative) Urine Nitrite (Negative) Urine Bilirubin (Negative) Urine Urobilinogen (Negative) Ur Leukocyte Esterase (Negative) Urine WBC (Auto) (0-5) /hpf Urine RBC (Auto) (0-4) /hpf U Hyaline Cast (Auto) (0-5) /lpf U Epithel Cells (Auto) (0-5) /lpf Urine Bacteria (Auto) (Negative) 09/13/19 Range/Units 09:24 WBC (4.8-10.8) K/uL RBC (4.2-5.4) M/uL Hgb (12.0-16.0) g/dL Hct (37-47) % MCV (80-100) fL MCH (25-34) pg MCHC (32-36) g/dL RDW Std Deviation (36.4-46.3) fL RDW Coeff of Chiara (11.5-14.5) % Plt Count (130-400) K/uL MPV (7.4-10.4) fL Immature Gran % (Auto) % Neut % (Auto) % Lymph % (Auto) % [place] % (Auto) % Eos % (Auto) % Baso % (Auto) % Immature Gran # (Auto) (0.00-0.02) K/uL Neut # (Auto) (1.4-6.5) K/uL Lymph # (Auto) (1.2-3.4) K/uL [place] # (Auto) (0.11-0.59) K/uL Eos # (Auto) (0-0.5) K/uL Baso # (Auto) (0-0.2) K/uL PT (9.0-12.0) Seconds INR (0.9-1.1) Sodium (136-145) mmol/L Potassium (3.5-5.1) mmol/L Chloride (98-107) mmol/L Carbon Dioxide (21-32) mmol/L Anion Gap (3-11) BUN (7-18) mg/dl Creatinine (0.6-1.2) mg/dl Est Cr Clr Drug Dosing Est GFR ( Amer) Est GFR (Non-Af Amer) BUN/Creatinine Ratio (10-20) Glucose (70-99) mg/dl Calcium (8.5-10.1) mg/dl Total Bilirubin (0.2-1) mg/dl AST (15-37) U/L ALT (12-78) U/L Alkaline Phosphatase (45-117) U/L Troponin I (0-0.045) ng/ml Total Protein (6.4-8.2) gm/dl Albumin (3.4-5.0) gm/dl Globulin (2.5-4.0) gm/dl Albumin/Globulin Ratio (0.9-2) Specimen Hemolysis Urine Color Yellow Urine Appearance Clear (Clear) Urine pH 6.5 (4.5-7.5) Ur Specific [place] 1.016 (1.000-1.030) Urine Protein Negative (Negative) Urine Glucose (UA) Negative (Negative) Urine Ketones Negative (Negative) Urine Blood Trace H (Negative) Urine Nitrite Negative (Negative) Urine Bilirubin Negative (Negative) Urine Urobilinogen Negative (Negative) Ur Leukocyte Esterase Trace H (Negative) Urine WBC (Auto) 5-10 H (0-5) /hpf Urine RBC (Auto) 5-10 H (0-4) /hpf U Hyaline Cast (Auto) 1-5 (0-5) /lpf U Epithel Cells (Auto) 10-20 H (0-5) /lpf Urine Bacteria (Auto) Negative (Negative) Diagnostic Findings XR chest 1V portable CLINICAL HISTORY: fall trauma COMPARISON STUDY: 09/05/2019 FINDINGS: The bones soft tissues and hemidiaphragms are normal. The cardiomediastinal silhouette is normal. The lungs are clear. The pulmonary vasculature is normal. IMPRESSION: Negative chest. ACT 112: Negative or not required by law. The above report was generated using voice recognition software. It may contain grammatical, syntax or spelling errors. Electronically signed by: Peter Santillan M.D. 09/13/2019 9:40 AM Dictated: 09/13/19939 Transcribed: 09/13/19939 CT head/brain wo con CT DOSE: 537.48 mGy.cm HISTORY: Trauma fall hit head TECHNIQUE: Multiaxial CT images of the head were performed without the use of intravenous contrast. A dose lowering technique was utilized adhering to the principles of ALARA. Comparison: 09/05/2018 Findings: The paranasal sinuses and mastoid air cells are clear. The calvarium and skull base are intact. The ventricles and sulci are within normal limits. There is no mass, hematoma, midline shift, or acute infarct. Age-related chronic small vessel change and atrophy. Impression: No acute intracranial abnormality. Chronic and age-related change. ACT 112: Negative or not required by law. The above report was generated using voice recognition software. It may contain grammatical, syntax or spelling errors. Electronically signed by: Peter Santillan M.D. 09/13/2019 10:03 AM Dictated: 09/13/19949 Transcribed: 09/13/19949 XR hip RT 2V w pelvis CLINICAL HISTORY: r hip pain pain COMPARISON: None. DISCUSSION: Subcapital fracture right hip. Superior migration right femoral shaft. No evidence for dislocation. Degenerative change of all remaining bony structures. There is no evidence for soft tissue swelling. IMPRESSION: Subcapital fracture right hip. ACT 112: Negative or not required by law. The above report was generated using voice recognition software. It may contain grammatical, syntax or spelling errors. Electronically signed by: Peter Santillan M.D. 09/13/2019 9:40 AM Dictated: 09/13/19938 Transcribed: 09/13/19938 R pelvis 1-2V routine CLINICAL HISTORY: r hip pain pain COMPARISON: 01/12/2018 DISCUSSION: Subcapital fracture right hip. Mild superior migration right femoral shaft. Generalized degenerative change throughout all remaining bony structures. There is no evidence for soft tissue swelling. IMPRESSION: Subcapital fracture right hip. ACT 112: Negative or not required by law. The above report was generated using voice recognition software. It may contain grammatical, syntax or spelling errors. Electronically signed by: Peter Santillan M.D. 09/13/2019 9:39 AM Dictated: 09/13/19937 Transcribed: 09/13/19937 ECG Additional Comments: Study shows normal sinus rhythm at 88 bpm, normal axis, DC = 112, QRS = 90, QTc = 433, no acute ischemic changes Code Status & VTE Plan Code Status Full code per discussion with patient VTE Prophylaxis Plan VTE Prophylaxis will be ordered: Yes PG Care Time/CCT Total # of Minutes Spent Total Time Spent with Patient: Total time spent is greater than 50% in coordination of care (as documented) at patient's floor/unit and/or counseling patient: (1) Hip fracture Encounter type: initial encounter Fracture type: closed Laterality: right Qualified Code(s): S72.001A - Fracture of unspecified part of neck of right femur, initial encounter for closed fracture (2) Leukocytosis Leukocytosis type: unspecified Qualified Code(s): D72.829 - Elevated white blood cell count, unspecified (3) Hypertension Hypertension type: essential hypertension Qualified Code(s): I10 - Essential (primary) hypertension (4) Hyperlipidemia Hyperlipidemia type: unspecified Qualified Code(s): E78.5 - Hyperlipidemia, unspecified (5) Glaucoma Glaucoma type: unspecified Laterality: unspecified laterality Qualified Code(s): H40.9 - Unspecified glaucoma (6) Rheumatoid arthritis Rheumatoid arthritis location: unspecified site Rheumatoid factor presence: unspecified presence Qualified Code(s): M06.9 - Rheumatoid arthritis, unspecified (7) Depression Depression Type: major depressive disorder Major depression recurrence: recurrent Active/Remission status: remission status unspecified Qualified Code(s): F33.9 - Major depressive disorder, recurrent, unspecified
[2019-09-13] MEDS ORDERED: bisacodyL 10 MG SUPP PR PRN (12:25)
[2019-09-13] MEDS ORDERED: ACETAMINOPHEN 325 MG TAB PO PRN (12:25)
[2019-09-13] MEDS ORDERED: NALOXONE HCL 0.4 MG/1 ML VIAL/CARP IV PRN (12:25)
[2019-09-13] MEDS ORDERED: HYDROmorphone INJ 0.5 MG/0.5 ML SYR IV PRN (12:25)
[2019-09-13] MEDS ORDERED: ONDANSETRON INJ 2 MG/ML 2 ML VIAL IV PRN (12:25)
[2019-09-13] MEDS ORDERED: POLYETHYLENE (MIRALAX) 17 GM PACK PO PRN (12:25)
[2019-09-13] MEDS ORDERED: MAGNESIUM HYDROXIDE SUSP 30 ML UDC PO PRN (12:25)
[2019-09-13 13:08] LABS: Magnesium 1.7 mg/dl (1.8-2.4); Phosphorus 2.7 mg/dl (2.5-4.9)
--- NOTE | 2019-09-13 13:33 | XRay Report ---
RIGHT ANKLE 2 VIEWS CLINICAL HISTORY: Right ankle pain. FINDINGS: AP and lateral portable views of the right ankle are compared to study dated 11/17/2016. The skeletal structures are osteopenic. No fracture is seen. The ankle mortise is intact. There is no lar ge joint effusion. Mild soft tissue edema is present around the ankle, greatest medially. Atheroscler otic calcification is noted in the regional arteries. IMPRESSION: Mild soft tissue swelling with no acute bony abnormality identified. Electronically signed by: Jose F Cohn M.D. 09/13/2019 1:32 PM
[2019-09-13] MEDS: SODIUM CHLORIDE 0.9% 1000ML 1,000 ML IV SCH (13:52)
--- NOTE | 2019-09-13 14:00 | Emergency Department Note ---
Entered by Ivania Cruz acting as a scribe for History of Present Illness General Chief complaint: Weakness Stated complaint: FALL,WEAKNESS,CANT STAND Time Seen by Provider: 09/13/19 09:06 Source: patient and family History of Present Illness Onset (ago): day(s) 2 Location: hip and right Pain Consistency: + other (worsening ) Maximum Pain Intensity: 10 Associated symptoms: + confusion, + diaphoresis, + nausea/vomiting (positive nausea; negative vomiting ) and + other (positive unable to move right leg; positive unable to walk; positive shaky; negative urinary symptoms; negative neck pain; negative back pain); no chest pain, no headaches and no shortness of breath Treatments prior to arrival: none The patient is a 89 year old female who presents to the Emergency Room with complaints of worsening right hip pain that began 2 days prior to arrival. Per the patient's family, the patient fell at this time but was able to walk with a walker and had no bruising. The patient's family states that the patient fell again this morning and is now unable to move her right leg and walk. Per the patient's family, the patient is nauseous, shaky, sweaty, and confused. The patient denies chest pain, shortness of breath, vomiting, urinary symptoms, headache, neck pain, and back pain. The patient's family states that the patient had a fall 8 days ago with an episode of syncope and was found to have UTI. Home Medications Home Medications Medication Instructions Recorded Confirmed Type Centrum Silver Women 1 tab PO QAM 07/06/18 09/13/19 History aspirin 81 mg PO QAM 07/06/18 09/13/19 History latanoprost 1 drp OPB HS 07/06/18 09/13/19 History acetaminophen [Acetaminophen Extra 500 mg PO DIRECTED PRN 09/05/19 09/13/19 History Strength] atorvastatin 20 mg PO DAILY 09/05/19 09/13/19 History cholecalciferol (vitamin D3) 50 mcg PO DAILY 09/05/19 09/13/19 History [Vitamin D3] diphenhydramine HCl [ZzzQuil] 0 mg PO HS 09/05/19 09/13/19 History duloxetine 20 mg PO DAILY 09/05/19 09/13/19 History lisinopril-hydrochlorothiazide 1 tab PO DAILY 09/05/19 09/13/19 History meloxicam 15 mg PO DAILY 09/05/19 09/13/19 History prednisone 10 mg PO DAILY 09/05/19 09/13/19 History sulfasalazine 500 mg PO TID 09/05/19 09/13/19 History Allergies Allergy/AdvReac Type Severity Reaction Status Date / Time Sulfa (Sulfonamide Allergy Unknown Rash Verified 09/13/19 10:58 Antibiotics) nicotine AdvReac Mild PATCH-SKIN Verified 09/13/19 10:58 IRRITATION Past Med/Surg History Medical History Anxiety (Chronic) Depression (Chronic) Dyslipidemia (Chronic) Glaucoma (Chronic) Hearing deficit (Chronic) Hyperlipidemia (Chronic) Hypertension Kidney stones (Chronic) Osteoarthritis (Chronic) Rheumatoid arthritis (Chronic) Surgical History History of cataract surgery (Resolved) left History of colonoscopy (Resolved) History of lithotripsy (Resolved) x 2 History of tooth extraction (Resolved) Nausea and vomiting after administration of anesthetic agent (Chronic) Family History (Updated 09/13/19 @ 10:49 by Ivania Cruz) Other No pertinent family history in first degree relatives Social History Preferred Language: Ch[place] Communication Ability: [employer] Required: No Beliefs That Will Affect Care: None Current Living Situation: Alone Feels Safe at Home: Yes Smoking Status: Current every day smoker Tobacco Type: cigarettes ; Cigarettes Per Day: 10 ; Second Hand Exposure: No ; Hx Alcohol Use: Yes Alcohol type: wine Hx Substance Use: No Review of Systems See HPI for pertinent positives & negatives. and A total of 10 systems reviewed and were otherwise negative Physical Exam Vital Signs Vital Signs - 24 hr 09/13/19 08:53 09/13/19 09:08 09/13/19 09:57 Temperature 36.3 C L Temperature Source Oral Pulse Rate 95 H 86 Pulse Rate [Left Finger] 94 H Pulse Rate from SpO2 Sensor Pulse Rhythm Regular Pulse Rhythm [Left Finger] Pulse Strength [Left Finger] Respiratory Rate 18 20 20 Respiratory Effort / Characteristics Non-Labored Spontaneous Respiratory Depth Normal Respiratory Pattern Blood Pressure 161/70 H Blood Pressure [Left Arm] 195/81 H Blood Pressure Mean 100 Blood Pressure Mean [Left Arm] 119 Blood Pressure Position Sitting Pulse Oximetry 93 96 95 Oxygen Delivery Method Room Air Room Air Room Air Oxygen Flow Rate Sepsis Recent Fever Within 48 Hours No Sepsis New/Unexplained Change in Mental Status No Sepsis Action Taken by Nursing No Action Required 09/13/19 11:00 Temperature Temperature Source Pulse Rate 92 H Pulse Rate [Left Finger] 87 Pulse Rate from SpO2 Sensor 90 Pulse Rhythm Pulse Rhythm [Left Finger] Regular Pulse Strength [Left Finger] Normal Respiratory Rate 23 Respiratory Effort / Characteristics Non-Labored Spontaneous Respiratory Depth Normal Respiratory Pattern Regular Blood Pressure 164/85 H Blood Pressure [Left Arm] 164/85 H Blood Pressure Mean 117 Blood Pressure Mean [Left Arm] 111 Blood Pressure Position Pulse Oximetry 96 Oxygen Delivery Method Nasal Cannula Oxygen Flow Rate 2 Sepsis Recent Fever Within 48 Hours Sepsis New/Unexplained Change in Mental Status Sepsis Action Taken by Nursing GENERAL: Laying in bed, in significant distress, holding right hip. HEAD: normal cephalic, atraumatic EYE EXAM: normal conjunctiva OROPHARYNX: no exudate, no erythema, lips, buccal mucosa, and tongue normal and mucous membranes are moist EARS: TMs clear b/l NECK: supple, no nuchal rigidity, no adenopathy, non-tender CHEST: stable to compression anteriorly and posteriorly LUNGS: clear to auscultation. Normal chest wall mechanics HEART: no murmurs, S1 normal and S2 normal ABDOMEN: abdomen soft, non-tender, normo-active bowel sounds, no masses, no rebound or guarding. PELVIS: stable to compression anteriorly and posteriorly UPPER EXTREMITIES: full active and passive range of motion of all joints without tenderness to palpation LOWER EXTREMITIES: Severe pain on palpation of the right hip. No tenderness throughout the right distal femur, knee, goddard, or ankle. DP 2/4. NEURO EXAM: Normal sensorium, cranial nerves II-XII grossly intact, normal speech, no gross weakness of arms. GCS: 15. Course Course ED COURSE: Vital signs were reviewed and showed hypertension. The patients medical record was reviewed The above diagnostic studies were performed and reviewed. ED treatments and interventions as stated above. 0905: The patient was evaluated in room B2. A complete history and physical examination was performed. 928: I checked on and updated the patient and her family. 1016: Upon reevaluation, the patient is resting comfortably. I discussed my findings with the patient and she understands and agrees with the treatment plan. Based on the patients age, coexisting illnesses, exam and lab findings the decision to treat as an inpatient was made. The patient remained stable while under my care. 1018: The patient will be evaluated for further management. I discussed the case with Dr. Ridley-[facility] Hospitalist who accepts the patient for further evaluation. Administered Medications Discontinued Medications Fentanyl Citrate (Fentanyl Citrate) 25 mcg IV NOW ONE Stop: 09/13/19 10:36 Last Admin: 09/13/19 10:54 Dose: 25 mcg Documented by: [id number] Sodium Chloride (Nss 1000ml) 1,000 mls @ 999 mls/hr IV .Q1H1M TIA Stop: 09/13/19 10:15 Last Infusion: 09/13/19 10:21 Dose: 0 mls/hr Documented by: [id number] Admin: 09/13/19 09:19 Dose: 999 mls/hr Documented by: [id number] Morphine Sulfate (Morphine Sulfate) 4 mg IV NOW STA Stop: 09/13/19 09:13 Last Admin: 09/13/19 09:17 Dose: 4 mg Documented by: [id number] Morphine Sulfate (Morphine Sulfate) Confirm Administered Dose 2 mg .ROUTE .STK- MED ONE Stop: 09/13/19 09:39 Last Admin: 09/13/19 09:41 Dose: 2 mg Documented by: [id number] Morphine Sulfate (Morphine Sulfate) 4 mg IV ONE ONE Stop: 09/13/19 09:46 Last Admin: 09/13/19 09:41 Dose: 4 mg Documented by: [id number] Medical Decision Making Differential Diagnosis Differential diagnoses include major intracranial, cervical, spinal, thoracic, abdominal, pelvic and neurologic injury. Fracture, contusion, sprain, strain, laceration, abrasions included as well. Medical Records Attestation: I reviewed the patient's medical records. Home Medications Current Medication List: was personally reviewed by me Laboratory Data Attestation: I reviewed the patient's lab results. Result diagrams: 09/13/19 09:08 09/13/19 09:08 Lab Results 09/13/19 09/13/19 09/13/19 Range/Units 09:08 09:08 09:08 WBC 15.27 H (4.8-10.8) K/uL RBC 4.23 (4.2-5.4) M/uL Hgb 14.0 (12.0-16.0) g/dL Hct 40.8 (37-47) % MCV 96.5 (80-100) fL MCH 33.1 (25-34) pg MCHC 34.3 (32-36) g/dL RDW Std Deviation 49.7 H (36.4-46.3) fL RDW Coeff of Chiara 14.2 (11.5-14.5) % Plt Count 454 H (130-400) K/uL MPV 9.5 (7.4-10.4) fL Immature Gran % (Auto) 0.8 % Neut % (Auto) 80.2 % Lymph % (Auto) 8.2 % Taylor % (Auto) 10.1 % Eos % (Auto) 0.5 % Baso % (Auto) 0.2 % Immature Gran # (Auto) 0.12 H (0.00-0.02) K/uL Neut # (Auto) 12.25 H (1.4-6.5) K/uL Lymph # (Auto) 1.25 (1.2-3.4) K/uL Taylor # (Auto) 1.54 H (0.11-0.59) K/uL Eos # (Auto) 0.08 (0-0.5) K/uL Baso # (Auto) 0.03 (0-0.2) K/uL PT 10.9 (9.0-12.0) Seconds INR 1.1 (0.9-1.1) Sodium 129 L (136-145) mmol/L Potassium 4.2 (3.5-5.1) mmol/L Chloride 95 L (98-107) mmol/L Carbon Dioxide 25 (21-32) mmol/L Anion Gap 9.0 (3-11) BUN 28 H (7-18) mg/dl Creatinine 1.20 (0.6-1.2) mg/dl Est Cr Clr Drug Dosing Not Reportable Est GFR ( Amer) 47.1 Est GFR (Non-Af Amer) 40.6 BUN/Creatinine Ratio 23.2 H (10-20) Glucose 102 H (70-99) mg/dl Calcium 9.4 (8.5-10.1) mg/dl Total Bilirubin 0.6 (0.2-1) mg/dl AST 25 (15-37) U/L ALT 20 (12-78) U/L Alkaline Phosphatase 58 (45-117) U/L Troponin I < 0.015 (0-0.045) ng/ml Total Protein 7.1 (6.4-8.2) gm/dl Albumin 3.2 L (3.4-5.0) gm/dl Globulin 3.9 (2.5-4.0) gm/dl Albumin/Globulin Ratio 0.8 L (0.9-2) Specimen Hemolysis Urine Color Urine Appearance (Clear) Urine pH (4.5-7.5) Ur Specific [place] (1.000-1.030) Urine Protein (Negative) Urine Glucose (UA) (Negative) Urine Ketones (Negative) Urine Blood (Negative) Urine Nitrite (Negative) Urine Bilirubin (Negative) Urine Urobilinogen (Negative) Ur Leukocyte Esterase (Negative) Urine WBC (Auto) (0-5) /hpf Urine RBC (Auto) (0-4) /hpf U Hyaline Cast (Auto) (0-5) /lpf U Epithel Cells (Auto) (0-5) /lpf Urine Bacteria (Auto) (Negative) 09/13/19 Range/Units 09:24 WBC (4.8-10.8) K/uL RBC (4.2-5.4) M/uL Hgb (12.0-16.0) g/dL Hct (37-47) % MCV (80-100) fL MCH (25-34) pg MCHC (32-36) g/dL RDW Std Deviation (36.4-46.3) fL RDW Coeff of Chiara (11.5-14.5) % Plt Count (130-400) K/uL MPV (7.4-10.4) fL Immature Gran % (Auto) % Neut % (Auto) % Lymph % (Auto) % Taylor % (Auto) % Eos % (Auto) % Baso % (Auto) % Immature Gran # (Auto) (0.00-0.02) K/uL Neut # (Auto) (1.4-6.5) K/uL Lymph # (Auto) (1.2-3.4) K/uL Taylor # (Auto) (0.11-0.59) K/uL Eos # (Auto) (0-0.5) K/uL Baso # (Auto) (0-0.2) K/uL PT (9.0-12.0) Seconds INR (0.9-1.1) Sodium (136-145) mmol/L Potassium (3.5-5.1) mmol/L Chloride (98-107) mmol/L Carbon Dioxide (21-32) mmol/L Anion Gap (3-11) BUN (7-18) mg/dl Creatinine (0.6-1.2) mg/dl Est Cr Clr Drug Dosing Est GFR ( Amer) Est GFR (Non-Af Amer) BUN/Creatinine Ratio (10-20) Glucose (70-99) mg/dl Calcium (8.5-10.1) mg/dl Total Bilirubin (0.2-1) mg/dl AST (15-37) U/L ALT (12-78) U/L Alkaline Phosphatase (45-117) U/L Troponin I (0-0.045) ng/ml Total Protein (6.4-8.2) gm/dl Albumin (3.4-5.0) gm/dl Globulin (2.5-4.0) gm/dl Albumin/Globulin Ratio (0.9-2) Specimen Hemolysis Urine Color Yellow Urine Appearance Clear (Clear) Urine pH 6.5 (4.5-7.5) Ur Specific [place] 1.016 (1.000-1.030) Urine Protein Negative (Negative) Urine Glucose (UA) Negative (Negative) Urine Ketones Negative (Negative) Urine Blood Trace H (Negative) Urine Nitrite Negative (Negative) Urine Bilirubin Negative (Negative) Urine Urobilinogen Negative (Negative) Ur Leukocyte Esterase Trace H (Negative) Urine WBC (Auto) 5-10 H (0-5) /hpf Urine RBC (Auto) 5-10 H (0-4) /hpf U Hyaline Cast (Auto) 1-5 (0-5) /lpf U Epithel Cells (Auto) 10-20 H (0-5) /lpf Urine Bacteria (Auto) Negative (Negative) Imaging Data Radiologist's Impression: Radiology results as stated below per my review and the radiologist's interpretation: XR chest 1V portable CLINICAL HISTORY: fall trauma COMPARISON STUDY: 09/05/2019 FINDINGS: The bones soft tissues and hemidiaphragms are normal. The cardiomediastinal silhouette is normal. The lungs are clear. The pulmonary vasculature is normal. IMPRESSION: Negative chest. ACT 112: Negative or not required by law. The above report was generated using voice recognition software. It may contain grammatical, syntax or spelling errors. Electronically signed by: Peter Santillan M.D. 09/13/2019 9:40 AM XR hip RT 2V w pelvis CLINICAL HISTORY: r hip pain pain COMPARISON: None. DISCUSSION: Subcapital fracture right hip. Superior migration right femoral shaft. No evidence for dislocation. Degenerative change of all remaining bony structures. There is no evidence for soft tissue swelling. IMPRESSION: Subcapital fracture right hip. ACT 112: Negative or not required by law. The above report was generated using voice recognition software. It may contain grammatical, syntax or spelling errors. Electronically signed by: Peter Santillan M.D. 09/13/2019 9:40 AM XR pelvis 1-2V routine CLINICAL HISTORY: r hip pain pain COMPARISON: 01/12/2018 DISCUSSION: Subcapital fracture right hip. Mild superior migration right femoral shaft. Generalized degenerative change throughout all remaining bony structures. There is no evidence for soft tissue swelling. IMPRESSION: Subcapital fracture right hip. ACT 112: Negative or not required by law. The above report was generated using voice recognition software. It may contain grammatical, syntax or spelling errors. Electronically signed by: Peter Santillan M.D. 09/13/2019 9:[address] head/brain wo con CT DOSE: 537.48 mGy.cm HISTORY: Trauma fall hit head TECHNIQUE: Multiaxial CT images of the head were performed without the use of intravenous contrast. A dose lowering technique was utilized adhering to the principles of ALARA. Comparison: 09/05/2018 Findings: The paranasal sinuses and mastoid air cells are clear. The calvarium and skull base are intact. The ventricles and sulci are within normal limits. There is no mass, hematoma, midline shift, or acute infarct. Age-related chronic small vessel change and atrophy. Impression: No acute intracranial abnormality. Chronic and age-related change. ACT 112: Negative or not required by law. The above report was generated using voice recognition software. It may contain grammatical, syntax or spelling errors. Electronically signed by: Peter Santillan M.D. 09/13/2019 10:03 AM ECG Data Attestation: I personally reviewed and interpreted this ECG as follows: Indication: + weakness Rate (beats per minute): 88 Rhythm: + sinus rhythm ECG Intervals/blocks: + Normal QT-c ECG Yale: + Normal ECG Findings: + Other (poor baseline); no PVCs Blood Pressure Blood Pressure Findings: Elevated blood pressure Blood Pressure Disposition: elevated BP felt to be situational MDM Narrative Patient is a 9-year-old female who presents the ER for multiple falls recently. Today she fell and she is unable to walk. Severe pain in the right hip. IV was established blood work was obtained showed a mild leukocytosis of 15,000. No significant anemia. BMP with mild hyponatremia. LFTs bilirubin and troponin was unremarkable. Troponin was negative. UA was contaminated. X-rays of the pelvis and hip show right subcapital fracture. CT head was negative. Patient family were updated bedside. Patient was given IV fluids and multiple dose of IV narcotics. Patient was discussed with the hospitalist admitted for further work-up. Impression & Plan Hip fracture, Leukocytosis, Hyponatremia Discharge Plan Visit Data *Final* Discharge Date/Time: 09/13/19 11:58 Chief Complaint: Weakness Stated Complaint: FALL,WEAKNESS,CANT STAND ED Provider: Newton Fonseca Discharge Problem: Hip fracture, Leukocytosis, Hyponatremia Patient Disposition: Admitted As Inpatient Discharge Instructions Interventions: ED Discharge Assessment Last Done: 09/13/19 11:58 Discharge Problem: Hip fracture Qualifiers: Encounter type: initial encounter Fracture type: closed Laterality: right Qualified Code(s): S72.001A - Fracture of unspecified part of neck of right femur, initial encounter for closed fracture Leukocytosis Qualifiers: Leukocytosis type: unspecified Qualified Code(s): D72.829 - Elevated white blood cell count, unspecified The scribe's documentation has been prepared under my direction and personally reviewed by me in its entirety. I confirm that the note above accurately reflects all work, treatment, procedures, and medical decision making performed by me.
[2019-09-13] MEDS: OXYCODONE HCL IR 5 MG TAB (IMMEDIATE RELEASE) PO PRN ×2 (14:01→21:54)
--- NOTE | 2019-09-13 14:18 | Orthopedic Consultation ---
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 After orthopedic consult discussing the patients treatment options of conservative versus surgical intervention, the patient agreed for a planned hemiarthroplasty. Since the patient was ambulatory prior to the injury and to avoid the risks of bed sores, pulmonary complications, and to give the patient the best chance for ambulation, I recommended surgery. The patient understands the risks of surgery, which include but are not limited to: bleeding, infection, re-operatio n, damage to nerves and arteries, continued pain, failure of the hardware, fracture, dislocation, DVT, NV, stroke, and . In addition the patient is aware of the 20-30% morbidity associated with hip fracture for up to 1 year following a hip fracture. The patient understands all of these instructions and explanations, all of their questions have been satisfactorily addressed. The patient has elected to proceed with surgery and the informed consent was signed. The patient has been placed on the add-on schedule for tomorrow as she unfortunately had eaten just prior to my consultation. We will proceed with surgery tomorrow as long as she remains medically stable and cleared per the primary service. Continue pain control. NPO with fluids after midnight. The patient has been admitted to the Hospitalist service. Spoke with the primary service, and 1 g of Ancef will be on-call to the OR for tomorrow, and teds and SCDs can be applied to the left lower extremity. Present on Admission?: Yes History of Present Illness Reason for Consultation: Right hip fracture Requesting Physician: Albert Santana M.D. Attending Physician: Earline Ridley DO History of Present Illness Afia is a pleasant 89-year-old female, who fell 4 days ago injuring her right hip. She states that she has been having balance problems,, but only occasionally will use a cane prior to this fall. She had been using a walker since the fall. She was brought to emergency department by her family. X-rays were obtained. She was admitted to the hospitalist service and I was consult did for further evaluation and treatment. She denies any other complaints or LOC. Allergies Allergy/AdvReac Type Severity Reaction Status Date / Time Sulfa (Sulfonamide Allergy Unknown Rash Verified 09/13/19 10:58 Antibiotics) nicotine AdvReac Mild PATCH-SKIN Verified 09/13/19 10:58 IRRITATION Home Medications Home Medications Medication Instructions Recorded Confirmed Type Centrum Silver Women 1 tab PO QAM 07/06/18 09/13/19 History aspirin 81 mg PO QAM 07/06/18 09/13/19 History latanoprost 1 drp OPB HS 07/06/18 09/13/19 History acetaminophen [Acetaminophen Extra 500 mg PO DIRECTED PRN 09/05/19 09/13/19 History Strength] atorvastatin 20 mg PO DAILY 09/05/19 09/13/19 History cholecalciferol (vitamin D3) 50 mcg PO DAILY 09/05/19 09/13/19 History [Vitamin D3] diphenhydramine HCl [ZzzQuil] 0 mg PO HS 09/05/19 09/13/19 History duloxetine 20 mg PO DAILY 09/05/19 09/13/19 History lisinopril-hydrochlorothiazide 1 tab PO DAILY 09/05/19 09/13/19 History meloxicam 15 mg PO DAILY 09/05/19 09/13/19 History prednisone 10 mg PO DAILY 09/05/19 09/13/19 History sulfasalazine 500 mg PO TID 09/05/19 09/13/19 History Patient History Medical History Anxiety (Chronic) Depression (Chronic) Dyslipidemia (Chronic) Glaucoma (Chronic) Hearing deficit (Chronic) Hyperlipidemia (Chronic) Hypertension Kidney stones (Chronic) Osteoarthritis (Chronic) Rheumatoid arthritis (Chronic) Surgical History History of cataract surgery (Resolved) left History of colonoscopy (Resolved) History of lithotripsy (Resolved) x 2 History of tooth extraction (Resolved) Nausea and vomiting after administration of anesthetic agent (Chronic) Family History (Updated 09/13/19 @ 10:49 by Ivania Cruz) Other No pertinent family history in first degree relatives Social History Preferred Language: Italian Communication Ability: Effective Customer Engagement Representative Required: No Beliefs That Will Affect Care: None marital status: / Current Living Situation: Alone Feels Safe at Home: Yes Smoking Status: Current every day smoker Tobacco Type: cigarettes ; Cigarettes Per Day: 10 ; Second Hand Exposure: No ; Hx Alcohol Use: Yes Alcohol type: wine Hx Substance Use: No Review of Systems Review of Systems: All systems reviewed & are unremarkable except as noted in HPI & below Physical Exam Physical Exam: RLE: 2+ DP pulse. Sensation light touch intact distally. She is able to wiggle her toes up and down. Calf is soft and nontender. Hip is shortened and externally rotated. Results & Data Vital Signs (Past 12 Hours) Vital Signs Temp Pulse Pulse Resp BP BP Pulse Ox 09/13/19 12:20 36.9 C 85 16 157/69 H 94 09/13/19 11:30 86 19 157/74 H 99 09/13/19 11:00 92 H 87 23 164/85 H 164/85 H 96 09/13/19 09:57 94 H 20 195/81 H 95 09/13/19 09:08 86 20 96 09/13/19 08:53 36.3 C L 95 H 18 161/70 H 93 Laboratory Results 09/13/19 09/13/19 09/13/19 Range/Units 12:35 12:35 09:24 WBC (4.8-10.8) K/uL RBC (4.2-5.4) M/uL Hgb (12.0-16.0) g/dL Hct (37-47) % MCV (80-100) fL MCH (25-34) pg MCHC (32-36) g/dL RDW Std Deviation (36.4-46.3) fL RDW Coeff of Chiara (11.5-14.5) % Plt Count (130-400) K/uL MPV (7.4-10.4) fL Immature Gran % (Auto) % Neut % (Auto) % Lymph % (Auto) % [place] % (Auto) % Eos % (Auto) % Baso % (Auto) % Immature Gran # (Auto) (0.00-0.02) K/uL Neut # (Auto) (1.4-6.5) K/uL Lymph # (Auto) (1.2-3.4) K/uL [place] # (Auto) (0.11-0.59) K/uL Eos # (Auto) (0-0.5) K/uL Baso # (Auto) (0-0.2) K/uL PT (9.0-12.0) Seconds INR (0.9-1.1) Sodium (136-145) mmol/L Potassium (3.5-5.1) mmol/L Chloride (98-107) mmol/L Carbon Dioxide (21-32) mmol/L Anion Gap (3-11) BUN (7-18) mg/dl Creatinine (0.6-1.2) mg/dl Est Cr Clr Drug Dosing Est GFR ( Amer) Est GFR (Non-Af Amer) BUN/Creatinine Ratio (10-20) Glucose (70-99) mg/dl Calcium (8.5-10.1) mg/dl Phosphorus 2.7 (2.5-4.9) mg/dl Magnesium 1.7 L (1.8-2.4) mg/dl Total Bilirubin (0.2-1) mg/dl AST (15-37) U/L ALT (12-78) U/L Alkaline Phosphatase (45-117) U/L Troponin I (0-0.045) ng/ml Total Protein (6.4-8.2) gm/dl Albumin (3.4-5.0) gm/dl Globulin (2.5-4.0) gm/dl Albumin/Globulin Ratio (0.9-2) Specimen Hemolysis Urine Color Yellow Urine Appearance Clear (Clear) Urine pH 6.5 (4.5-7.5) Ur Specific [place] 1.016 (1.000-1.030) Urine Protein Negative (Negative) Urine Glucose (UA) Negative (Negative) Urine Ketones Negative (Negative) Urine Blood Trace H (Negative) Urine Nitrite Negative (Negative) Urine Bilirubin Negative (Negative) Urine Urobilinogen Negative (Negative) Ur Leukocyte Esterase Trace H (Negative) Urine WBC (Auto) 5-10 H (0-5) /hpf Urine RBC (Auto) 5-10 H (0-4) /hpf U Hyaline Cast (Auto) 1-5 (0-5) /lpf U Epithel Cells (Auto) 10-20 H (0-5) /lpf Urine Bacteria (Auto) Negative (Negative) Blood Type O Positive Antibody Screen NEGATIVE 09/13/19 09/13/19 09/13/19 Range/Units 09:08 09:08 09:08 WBC 15.27 H (4.8-10.8) K/uL RBC 4.23 (4.2-5.4) M/uL Hgb 14.0 (12.0-16.0) g/dL Hct 40.8 (37-47) % MCV 96.5 (80-100) fL MCH 33.1 (25-34) pg MCHC 34.3 (32-36) g/dL RDW Std Deviation 49.7 H (36.4-46.3) fL RDW Coeff of Chiara 14.2 (11.5-14.5) % Plt Count 454 H (130-400) K/uL MPV 9.5 (7.4-10.4) fL Immature Gran % (Auto) 0.8 % Neut % (Auto) 80.2 % Lymph % (Auto) 8.2 % [place] % (Auto) 10.1 % Eos % (Auto) 0.5 % Baso % (Auto) 0.2 % Immature Gran # (Auto) 0.12 H (0.00-0.02) K/uL Neut # (Auto) 12.25 H (1.4-6.5) K/uL Lymph # (Auto) 1.25 (1.2-3.4) K/uL [place] # (Auto) 1.54 H (0.11-0.59) K/uL Eos # (Auto) 0.08 (0-0.5) K/uL Baso # (Auto) 0.03 (0-0.2) K/uL PT 10.9 (9.0-12.0) Seconds INR 1.1 (0.9-1.1) Sodium 129 L (136-145) mmol/L Potassium 4.2 (3.5-5.1) mmol/L Chloride 95 L (98-107) mmol/L Carbon Dioxide 25 (21-32) mmol/L Anion Gap 9.0 (3-11) BUN 28 H (7-18) mg/dl Creatinine 1.20 (0.6-1.2) mg/dl Est Cr Clr Drug Dosing Not Reportable Est GFR ( Amer) 47.1 Est GFR (Non-Af Amer) 40.6 BUN/Creatinine Ratio 23.2 H (10-20) Glucose 102 H (70-99) mg/dl Calcium 9.4 (8.5-10.1) mg/dl Phosphorus (2.5-4.9) mg/dl Magnesium (1.8-2.4) mg/dl Total Bilirubin 0.6 (0.2-1) mg/dl AST 25 (15-37) U/L ALT 20 (12-78) U/L Alkaline Phosphatase 58 (45-117) U/L Troponin I < 0.015 (0-0.045) ng/ml Total Protein 7.1 (6.4-8.2) gm/dl Albumin 3.2 L (3.4-5.0) gm/dl Globulin 3.9 (2.5-4.0) gm/dl Albumin/Globulin Ratio 0.8 L (0.9-2) Specimen Hemolysis Urine Color Urine Appearance (Clear) Urine pH (4.5-7.5) Ur Specific [place] (1.000-1.030) Urine Protein (Negative) Urine Glucose (UA) (Negative) Urine Ketones (Negative) Urine Blood (Negative) Urine Nitrite (Negative) Urine Bilirubin (Negative) Urine Urobilinogen (Negative) Ur Leukocyte Esterase (Negative) Urine WBC (Auto) (0-5) /hpf Urine RBC (Auto) (0-4) /hpf U Hyaline Cast (Auto) (0-5) /lpf U Epithel Cells (Auto) (0-5) /lpf Urine Bacteria (Auto) (Negative) Blood Type Antibody Screen Diagnostic Findings AP pelvis, AP and lateral right hip, show a displaced subcapital hip fracture. (1) Hip fracture Encounter type: initial encounter Fracture type: closed Laterality: right Qualified Code(s): S72.001A - Fracture of unspecified part of neck of right femur, initial encounter for closed fracture
[2019-09-13] MEDS: sulfaSALAzine 500 MG TABEC PO SCH ×2 (14:21→20:54)
[2019-09-13 19:17] LABS: Calcium 8.4 mg/dl (8.5-10.1); Potassium 4.2 mmol/L (3.5-5.1)
[2019-09-13 19:33] LABS: BUN Creatinine Ratio 24.4 (10-20); Creatinine Clr Calc Pharmacy 33.6 ml/min; Est GFR (African American) 67.5; Est GFR (Non-African American) 58.3
[2019-09-13] MEDS: DOCUSATE SODIUM/SENNA 50/8.6MG TAB PO SCH (20:54)
[2019-09-13] MEDS: LATANOPROST 0.005% OP SOLN 2.5 ML BTL OPB SCH (21:52)
[2019-09-14] MEDS: SODIUM CHLORIDE 0.9% 1000ML 1,000 ML IV SCH (01:38)
[2019-09-14] MEDS ORDERED: CEFAZOLIN 1000MG 1,000 MG/7.5 ML SYR IV ONE (06:00)
[2019-09-14 06:40] LABS: Basophils # (auto) 0.02 K/uL (0-0.2); Basophils % (auto) 0.2 %; Eosinophils # (auto) 0.09 K/uL (0-0.5); Eosinophils % (auto) 1.1 %; Hemoglobin 12.5 g/dL (12.0-16.0); Immature Granulocytes # (auto) 0.06 K/uL (0.00-0.02); Immature Granulocytes % (auto) 0.7 %; Lymphocytes # (auto) 1.37 K/uL (1.2-3.4); Lymphocytes % (auto) 16.9 %; Mean Corpuscular Hemoglobin 33.2 pg (25-34); Mean Corpuscular Hgb Conc 34.7 g/dL (32-36); Mean Corpuscular Volume 95.5 fL (80-100); Monocytes # (auto) 0.95 K/uL (0.11-0.59); Monocytes % (auto) 11.7 %; Neutrophils # (auto) 5.64 K/uL (1.4-6.5); Neutrophils % (auto) 69.4 %; Platelet Count 325 K/uL (130-400); RDW Coefficient of Variation 14.2 % (11.5-14.5); RDW Standard Deviation 49.3 fL (36.4-46.3); Red Blood Count 3.77 M/uL (4.2-5.4); White Blood Count 8.13 K/uL (4.8-10.8)
--- NOTE | 2019-09-14 07:10 | Anesthesiology Consultation ---
Date of Service September 14, 2019 History Surgery Operation Date: 09/14/19 07:30 Proposed Procedures p Right Hip Hemiarthroplasty - Albert Reyna Santana MD Height/Weight Height: 5 ft 1 in Weight: 55.8 kg Allergies Allergy/AdvReac Type Severity Reaction Status Date / Time Sulfa (Sulfonamide Allergy Unknown Rash Verified 09/13/19 10:58 Antibiotics) nicotine AdvReac Mild PATCH-SKIN Verified 09/13/19 10:58 IRRITATION Medications Home Medications Medication Instructions Recorded Confirmed Last Taken Centrum Silver Women 1 tab PO QAM 07/06/18 09/13/19 09/05/19 aspirin 81 mg PO QAM 07/06/18 09/13/19 09/05/19 latanoprost 1 drp OPB HS 07/06/18 09/13/19 09/04/19 acetaminophen [Acetaminophen Extra 500 mg PO DIRECTED PRN 09/05/19 09/13/19 Unknown Strength] atorvastatin 20 mg PO DAILY 09/05/19 09/13/19 09/05/19 cholecalciferol (vitamin D3) 50 mcg PO DAILY 09/05/19 09/13/19 09/05/19 [Vitamin D3] diphenhydramine HCl [ZzzQuil] 0 mg PO HS 09/05/19 09/13/19 09/04/19 duloxetine 20 mg PO DAILY 09/05/19 09/13/19 09/05/19 lisinopril-hydrochlorothiazide 1 tab PO DAILY 09/05/19 09/13/19 09/05/19 meloxicam 15 mg PO DAILY 09/05/19 09/13/19 09/05/19 prednisone 10 mg PO DAILY 09/05/19 09/13/19 09/05/19 sulfasalazine 500 mg PO TID 09/05/19 09/13/19 09/05/19 PM DOSE Active Medications Generic Name Dose Route Start Last Admin Trade Name Freq PRN Reason Stop Dose Admin Diphenhydramine HCl 25 mg 09/13/19 21:00 09/13/19 20:53 Benadryl Capsule PO 10/13/19 20:59 25 mg HS TIA Administration Sodium Chloride 1,000 mls @ 80 mls/hr 09/13/19 12:25 09/14/19 01:38 Nss 1000ml IV 01/01/20 13:24 80 mls/hr .[id number] TIA Administration Latanoprost 1 drops 09/13/19 21:00 09/13/19 21:52 Xalatan Oph OPB 10/13/19 20:59 1 drops HS TIA Administration Oxycodone HCl 5 mg 09/13/19 12:25 09/13/19 21:54 Roxicodone Immediate Rel PO 09/27/19 12:24 5 mg Q4H PRN Administration MODERATE Pain (Scale 4,5,6) Senna/Docusate Sodium 2 tab 09/13/19 21:00 09/13/19 20:54 Senokot S PO 10/13/19 20:59 2 tab HS TIA Administration Sulfadiazine 500 mg 09/13/19 14:00 09/13/19 20:54 Azulfidine Delayed Rel PO 10/13/19 13:59 500 mg TID TIA Administration NPO Date Last Intake of Fluids: 09/13/19 Time Last Intake of Fluids: 21:00 Time Last Intake of Solids: 19:30 Past Medical History Medical History Anxiety (Chronic) Depression (Chronic) Dyslipidemia (Chronic) Glaucoma (Chronic) Hearing deficit (Chronic) Hyperlipidemia (Chronic) Hypertension Kidney stones (Chronic) Osteoarthritis (Chronic) Rheumatoid arthritis (Chronic) Tobacco use Past Family History Family History Other No pertinent family history in first degree relatives Past Surgical History Surgical History History of cataract surgery (Resolved) left History of colonoscopy (Resolved) History of lithotripsy (Resolved) x 2 History of tooth extraction (Resolved) Nausea and vomiting after administration of anesthetic agent (Chronic) Social History Smoking Status: Current every day smoker tobacco type: cigarettes Smoking cigarettes per day: 10 Do You Dip or Chew Tobacco: No Hx Alcohol Use: Yes Alcohol type: wine alcohol intake frequency: holidays/special occasions only Hx Substance Use: No substance use type: does not use Physical Exam Vital Signs Last Vital Signs Temp 36.6 C 09/14/19 07:11 Pulse 94 H 09/14/19 07:11 Resp 16 09/14/19 07:11 BP 170/81 H 09/14/19 07:11 Pulse Ox 91 09/14/19 07:11 Testing Laboratory Results 09/14/19 06:14 09/14/19 06:14 PT 10.9 Seconds (9.0-12.0) 09/13/19 09:08 INR 1.1 (0.9-1.1) 09/13/19 09:08 Urine Color Yellow 09/13/19 09:24 Urine Appearance Clear (Clear) 09/13/19 09:24 Urine pH 6.5 (4.5-7.5) 09/13/19 09:24 Ur Specific [place] 1.016 (1.000-1.030) 09/13/19 09:24 Urine Protein Negative (Negative) 09/13/19 09:24 Urine Glucose (UA) Negative (Negative) 09/13/19 09:24 Urine Ketones Negative (Negative) 09/13/19 09:24 Urine Nitrite Negative (Negative) 09/13/19 09:24 Ur Leukocyte Esterase Trace (Negative) H 09/13/19 09:24 Urine WBC (Auto) 5-10 /hpf (0-5) H 09/13/19 09:24 Urine RBC (Auto) 5-10 /hpf (0-4) H 09/13/19 09:24 U Hyaline Cast (Auto) 1-5 /lpf (0-5) 09/13/19 09:24 U Epithel Cells (Auto) 10-20 /lpf (0-5) H 09/13/19 09:24 Urine Bacteria (Auto) Negative (Negative) 09/13/19 09:24 Blood Type O Positive 09/13/19 12:35 Antibody Screen NEGATIVE 09/13/19 12:35 Electrocardiogram Date: 10/14/19 Normal sinus rhythm Nonspecific ST abnormality Abnormal ECG When compared with ECG of 06-SEP-2019 07:04, No significant change was found Confirmed by Roland Kulkarni ([id number]) on 09/13/2019 3:07:30 PM
[2019-09-14] MEDS ORDERED: ONDANSETRON INJ 2 MG/ML 2 ML VIAL IV PRN (07:11)
[2019-09-14] MEDS ORDERED: HYDROmorphone INJ 1 MG/ML SYRINGE IV PRN (07:11)
[2019-09-14] MEDS ORDERED: ATROPINE SULFATE 0.1 MG/ML 10ML SYR IV PRN (07:11)
[2019-09-14] MEDS ORDERED: fentaNYL citrate 100 MCG/2 ML VIAL IV PRN (07:11)
[2019-09-14] MEDS ORDERED: ePHEDrine sulfate 50 MG/ML AMP IV PRN (07:11)
--- NOTE | 2019-09-14 07:14 | Orthopedic Progress Note ---
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 Continue pain control. NPO with fluids after midnight. Continue care per [facility] Hospitalist service. 1 g of Ancef will be on-call to the OR DVT Prophylaxis: TEDs and SCDs can be applied to the left lower extremity. Consented yesterday. Plan OR today. Subjective Right hip pain Review of Systems Review of Systems: All systems reviewed & are unremarkable except as noted in HPI & below Physical Exam Physical Exam: RLE: Neuro intact. calf soft and non-tender. Shortened and externally rotated. Results & Data Vital Signs (Past 12 Hours) Vital Signs Temp Pulse Resp BP Pulse Ox 09/13/19 23:35 37.2 C 92 H 16 178/79 H 92 Laboratory Results 09/14/19 09/14/19 09/13/19 Range/Units 06:14 06:14 18:24 WBC 8.13 (4.8-10.8) K/uL RBC 3.77 L (4.2-5.4) M/uL Hgb 12.5 (12.0-16.0) g/dL Hct 36.0 L (37-47) % MCV 95.5 (80-100) fL MCH 33.2 (25-34) pg MCHC 34.7 (32-36) g/dL RDW Std Deviation 49.3 H (36.4-46.3) fL RDW Coeff of Chiara 14.2 (11.5-14.5) % Plt Count 325 (130-400) K/uL MPV 9.0 (7.4-10.4) fL Immature Gran % (Auto) 0.7 % Neut % (Auto) 69.4 % Lymph % (Auto) 16.9 % [place] % (Auto) 11.7 % Eos % (Auto) 1.1 % Baso % (Auto) 0.2 % Immature Gran # (Auto) 0.06 H (0.00-0.02) K/uL Neut # (Auto) 5.64 (1.4-6.5) K/uL Lymph # (Auto) 1.37 (1.2-3.4) K/uL [place] # (Auto) 0.95 H (0.11-0.59) K/uL Eos # (Auto) 0.09 (0-0.5) K/uL Baso # (Auto) 0.02 (0-0.2) K/uL PT (9.0-12.0) Seconds INR (0.9-1.1) Sodium Pending 130 L (136-145) mmol/L Potassium Pending 4.2 (3.5-5.1) mmol/L Chloride Pending 98 (98-107) mmol/L Carbon Dioxide Pending 27 (21-32) mmol/L Anion Gap Pending 5.0 (3-11) BUN Pending 22 H (7-18) mg/dl Creatinine Pending 0.89 D (0.6-1.2) mg/dl Est Cr Clr Drug Dosing Pending 33.6 Est GFR ( Amer) Pending 67.5 Est GFR (Non-Af Amer) Pending 58.3 BUN/Creatinine Ratio Pending 24.4 H (10-20) Glucose Pending 142 H (70-99) mg/dl Calcium Pending 8.4 L (8.5-10.1) mg/dl Phosphorus (2.5-4.9) mg/dl Magnesium (1.8-2.4) mg/dl Total Bilirubin (0.2-1) mg/dl AST (15-37) U/L ALT (12-78) U/L Alkaline Phosphatase (45-117) U/L Troponin I (0-0.045) ng/ml Total Protein (6.4-8.2) gm/dl Albumin (3.4-5.0) gm/dl Globulin (2.5-4.0) gm/dl Albumin/Globulin Ratio (0.9-2) Specimen Hemolysis Urine Color Urine Appearance (Clear) Urine pH (4.5-7.5) Ur Specific [place] (1.000-1.030) Urine Protein (Negative) Urine Glucose (UA) (Negative) Urine Ketones (Negative) Urine Blood (Negative) Urine Nitrite (Negative) Urine Bilirubin (Negative) Urine Urobilinogen (Negative) Ur Leukocyte Esterase (Negative) Urine WBC (Auto) (0-5) /hpf Urine RBC (Auto) (0-4) /hpf U Hyaline Cast (Auto) (0-5) /lpf U Epithel Cells (Auto) (0-5) /lpf Urine Bacteria (Auto) (Negative) Blood Type Antibody Screen 09/13/19 09/13/19 09/13/19 Range/Units 12:35 12:35 09:24 WBC (4.8-10.8) K/uL RBC (4.2-5.4) M/uL Hgb (12.0-16.0) g/dL Hct (37-47) % MCV (80-100) fL MCH (25-34) pg MCHC (32-36) g/dL RDW Std Deviation (36.4-46.3) fL RDW Coeff of Chiara (11.5-14.5) % Plt Count (130-400) K/uL MPV (7.4-10.4) fL Immature Gran % (Auto) % Neut % (Auto) % Lymph % (Auto) % [place] % (Auto) % Eos % (Auto) % Baso % (Auto) % Immature Gran # (Auto) (0.00-0.02) K/uL Neut # (Auto) (1.4-6.5) K/uL Lymph # (Auto) (1.2-3.4) K/uL [place] # (Auto) (0.11-0.59) K/uL Eos # (Auto) (0-0.5) K/uL Baso # (Auto) (0-0.2) K/uL PT (9.0-12.0) Seconds INR (0.9-1.1) Sodium (136-145) mmol/L Potassium (3.5-5.1) mmol/L Chloride (98-107) mmol/L Carbon Dioxide (21-32) mmol/L Anion Gap (3-11) BUN (7-18) mg/dl Creatinine (0.6-1.2) mg/dl Est Cr Clr Drug Dosing Est GFR ( Amer) Est GFR (Non-Af Amer) BUN/Creatinine Ratio (10-20) Glucose (70-99) mg/dl Calcium (8.5-10.1) mg/dl Phosphorus 2.7 (2.5-4.9) mg/dl Magnesium 1.7 L (1.8-2.4) mg/dl Total Bilirubin (0.2-1) mg/dl AST (15-37) U/L ALT (12-78) U/L Alkaline Phosphatase (45-117) U/L Troponin I (0-0.045) ng/ml Total Protein (6.4-8.2) gm/dl Albumin (3.4-5.0) gm/dl Globulin (2.5-4.0) gm/dl Albumin/Globulin Ratio (0.9-2) Specimen Hemolysis Urine Color Yellow Urine Appearance Clear (Clear) Urine pH 6.5 (4.5-7.5) Ur Specific [place] 1.016 (1.000-1.030) Urine Protein Negative (Negative) Urine Glucose (UA) Negative (Negative) Urine Ketones Negative (Negative) Urine Blood Trace H (Negative) Urine Nitrite Negative (Negative) Urine Bilirubin Negative (Negative) Urine Urobilinogen Negative (Negative) Ur Leukocyte Esterase Trace H (Negative) Urine WBC (Auto) 5-10 H (0-5) /hpf Urine RBC (Auto) 5-10 H (0-4) /hpf U Hyaline Cast (Auto) 1-5 (0-5) /lpf U Epithel Cells (Auto) 10-20 H (0-5) /lpf Urine Bacteria (Auto) Negative (Negative) Blood Type O Positive Antibody Screen NEGATIVE 09/13/19 09/13/19 09/13/19 Range/Units 09:08 09:08 09:08 WBC 15.27 H (4.8-10.8) K/uL RBC 4.23 (4.2-5.4) M/uL Hgb 14.0 (12.0-16.0) g/dL Hct 40.8 (37-47) % MCV 96.5 (80-100) fL MCH 33.1 (25-34) pg MCHC 34.3 (32-36) g/dL RDW Std Deviation 49.7 H (36.4-46.3) fL RDW Coeff of Chiara 14.2 (11.5-14.5) % Plt Count 454 H (130-400) K/uL MPV 9.5 (7.4-10.4) fL Immature Gran % (Auto) 0.8 % Neut % (Auto) 80.2 % Lymph % (Auto) 8.2 % [place] % (Auto) 10.1 % Eos % (Auto) 0.5 % Baso % (Auto) 0.2 % Immature Gran # (Auto) 0.12 H (0.00-0.02) K/uL Neut # (Auto) 12.25 H (1.4-6.5) K/uL Lymph # (Auto) 1.25 (1.2-3.4) K/uL [place] # (Auto) 1.54 H (0.11-0.59) K/uL Eos # (Auto) 0.08 (0-0.5) K/uL Baso # (Auto) 0.03 (0-0.2) K/uL PT 10.9 (9.0-12.0) Seconds INR 1.1 (0.9-1.1) Sodium 129 L (136-145) mmol/L Potassium 4.2 (3.5-5.1) mmol/L Chloride 95 L (98-107) mmol/L Carbon Dioxide 25 (21-32) mmol/L Anion Gap 9.0 (3-11) BUN 28 H (7-18) mg/dl Creatinine 1.20 (0.6-1.2) mg/dl Est Cr Clr Drug Dosing Not Reportable Est GFR ( Amer) 47.1 Est GFR (Non-Af Amer) 40.6 BUN/Creatinine Ratio 23.2 H (10-20) Glucose 102 H (70-99) mg/dl Calcium 9.4 (8.5-10.1) mg/dl Phosphorus (2.5-4.9) mg/dl Magnesium (1.8-2.4) mg/dl Total Bilirubin 0.6 (0.2-1) mg/dl AST 25 (15-37) U/L ALT 20 (12-78) U/L Alkaline Phosphatase 58 (45-117) U/L Troponin I < 0.015 (0-0.045) ng/ml Total Protein 7.1 (6.4-8.2) gm/dl Albumin 3.2 L (3.4-5.0) gm/dl Globulin 3.9 (2.5-4.0) gm/dl Albumin/Globulin Ratio 0.8 L (0.9-2) Specimen Hemolysis Urine Color Urine Appearance (Clear) Urine pH (4.5-7.5) Ur Specific [place] (1.000-1.030) Urine Protein (Negative) Urine Glucose (UA) (Negative) Urine Ketones (Negative) Urine Blood (Negative) Urine Nitrite (Negative) Urine Bilirubin (Negative) Urine Urobilinogen (Negative) Ur Leukocyte Esterase (Negative) Urine WBC (Auto) (0-5) /hpf Urine RBC (Auto) (0-4) /hpf U Hyaline Cast (Auto) (0-5) /lpf U Epithel Cells (Auto) (0-5) /lpf Urine Bacteria (Auto) (Negative) Blood Type Antibody Screen (1) Hip fracture Encounter type: initial encounter Fracture type: closed Laterality: right Qualified Code(s): S72.001A - Fracture of unspecified part of neck of right femur, initial encounter for closed fracture
[2019-09-14] MEDS ORDERED: SUCCINYLCHOLINE 100MG/5ML SYR ONE (07:16)
[2019-09-14] MEDS ORDERED: LIDOCAINE HCL 2% 2 ML VIAL/AMP(20MG/ML) INFIL ONE (07:16)
[2019-09-14] MEDS ORDERED: PROPOFOL IV EMULSION 10 MG/ML 20 ML VIAL IV ONE ×4 (07:16→10:20)
[2019-09-14 07:17] LABS: BUN Creatinine Ratio 19.6 (10-20); Calcium 8.5 mg/dl (8.5-10.1); Creatinine Clr Calc Pharmacy 42.7 ml/min; Est GFR (African American) 90.3; Est GFR (Non-African American) 77.9
[2019-09-14] MEDS ORDERED: fentaNYL citrate 100 MCG/2 ML VIAL ONE (07:36)
[2019-09-14] MEDS ORDERED: LIDOCAINE/EPINEPHRINE 1% 20 ML VIAL ONE (08:39)
[2019-09-14] MEDS ORDERED: BUPIVACAINE 0.5 % 5 MG/1 ML MPF 30ML VIAL ONE (08:39)
[2019-09-14] MEDS ORDERED: CEFAZOLIN 250 MG/ML 1 GM VIAL ONE (09:04)
[2019-09-14] MEDS ORDERED: HYDROCORTISONE SOD SUCCINATE 100 MG/2 ML VIAL ONE (09:05)
[2019-09-14] MEDS ORDERED: PHENYLEPHRINE 100MCG/ML 5ML SYR ONE (09:17)
[2019-09-14] MEDS ORDERED: VANCOMYCIN HCL 1000MG/20ML VIAL ONE (09:52)
--- NOTE | 2019-09-14 10:36 | XRay Report ---
SINGLE VIEW RIGHT HIP CLINICAL HISTORY: Intraoperative radiograph. FINDINGS: An AP portable view of the right hip is compared to study dated 09/13/2019. The skeletal st ructures are osteopenic. A unipolar right hip arthroplasty is in near anatomic alignment. No acute fr acture is identified. Soft tissue swelling and subcutaneous gas overlying the right hip are expected operative findings. There is atherosclerotic calcification of the right femoral artery. IMPRESSION: A unipolar right hip arthroplasty is in near-anatomic alignment. Electronically signed by: Jose F Cohn M.D. 09/14/2019 10:34 AM
--- NOTE | 2019-09-14 11:19 | Post Operative Brief Note ---
Immediate Post Op Note v1 Date of Surgery September 14, 2019 Pre & Post Diagnosis Operation Date: 09/14/19 07:30 Pre-Op Diagnosis: right hip fracture Post-Op Diagnosis: right hip fracture I identified the patient and participated in the time-out.: Yes Procedure Operation Date: 09/14/19 07:30 Actual Procedures p Right Hip Hemiarthroplasty, cemented (Right) - Albert Santana MD Surgeon Albert Santana MD Scheduling Administrator n/a Estimated Blood Loss 100 Findings Consistent with Post-Op Diagnosis Fluids 700 cc Specimens Right hip aspirate:C&S, Gram stain, Crystals; Right hip contents. Stat froz Drains Kim Catheter Anesthesia Type Spinal Complications none Disposition Accompanied Patient To Recovery: Yes
[2019-09-14] MEDS ORDERED: NALOXONE HCL 0.4 MG/1 ML VIAL/CARP IV PRN (11:20)
--- NOTE | 2019-09-14 11:20 | Operative Report ---
Post Operative Report Pre & Post Diagnosis Operation Date: 09/14/19 07:30 Pre-Op Diagnosis: right hip fracture Post-Op Diagnosis: right hip fracture I identified the patient and participated in the time-out.: Yes Procedure Operation Date: 09/14/19 07:30 Actual Procedures p Right Hip Hemiarthroplasty, cemented (Right) - Albert Santana MD Surgeon Albert Santana MD Datastage Consultant n/a Estimated Blood Loss 100 Findings See Below Displaced right femoral neck fracture, displaced. Upon entering the capsule the fluid that was evacuated was thick, serosanguineous. Fluids 700 cc Specimens Right hip aspirate:C&S, Gram stain, Crystals; Right hip contents. 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 After orthopedic consult discussing the patients treatment options of conservative versus surgical intervention, she agreed for a planned hemiarthroplasty. Since the patient was ambulatory prior to the injury and to avoid the risks of bed sores, pulmonary complications, and to give the patient the best chance for ambulation, I recommended surgery. The patient understands the risks of surgery, which include but are not limited to: bleeding, infection, re- operation, damage to nerves and arteries, continued pain, failure of the hardware, dislocation, DVT, and . In addition the patient is aware of the 20-30% morbidity associated with hip fracture for up to 1 year following a hip fracture. The patient understands all of these instructions and explanations, all of their questions have been satisfactorily addressed. The patient has elected to proceed with surgery and the informed consent was signed. Description of Procedure Implants: 1) LDFX, Size 11, Cemented (Pavan/Biomet). 2) Femoral Head 28mm Diameter, + 3 mm Neck Length. 3) 43 mm Multipolar Bipolar Cup. 4) 28 mm ID Liner, Multipolar Bipolar Cup. 5) Simplex cement 2 + 1g Vancomycin (Styker). Procedure: The patient was taken to the Operating Room and placed in the lateral position with a leiva bag following spinal anesthesia administration. A multidisciplinary time-out was performed identifying my initials on the right lower limb as the correct and operative limb. Prior to the incision being made, 1 gram of intravenous Ancef was given. The right lower extremity was prepped in the standard fashion. The trochanter was marked as was the planned incision 1/3 proximal and 2/3 distal to the tip of the greater trochanter. The incisions were injected with a 50:50 mixture of 1% Lidocaine epi and 0.5% Bupivacaine plain for a total of 10cc. A standard posterior approach was made. The planned incision was carried down through the Tensor Fascia Leonora , which was then split in-line with its fibers. The Gluteus Nilay was bluntly dissected. The Piriformis and short external rotators were dissected off the capsule and femur and tagged for later repair. The capsule was incised and freed off the fracture fragments. The fluid evacuated from the hip joint was concerning as it was thick serosanguineous. Pathology was sent stat as well cultures, sensitivities, gram stain, and crystals were taken as well. The Neck cut was made to allow removal of the femoral head. The femoral canal was prepared with Box osteotome, followed by a canal finder. The femur was sequentially broached in the standard fashion, and trial heads were placed. Fluoroscopy was brought in to ensure adequate proper alignment, fill of the canal, head size, and leg length. The trial components were removed and the wound and femoral canal were copiously irrigated and dried. The femur was cemented using 3rd generation technique followed by placement of the components in the standard fashion and the hip reduced. There was excellent stability with no sense of dislocation with 30 degrees adduction, flexion 90 degrees, and internal rotation to 40 degrees. The wounds were copiously irrigated. The External rotators and capsule were closed over bon bridges with #2 Fiber Wire. The Tensor Fascia Leonora was closed with #1 Vicryl. The subcutaneous fat had a stay sutures placed using 3-0 Vicryl. The subcutaneous tissue was closed with 3-0 Vicryl. The skin was closed with Zipline. The incisions were covered with 4 x 4's, ABD, and foam tape. The patient was transfer to her hospital bed and taken to the PACU in stable condition. The sponge and needle counts were correct. Post-op Instructions: The patient was admitted back to the Med/Surg floor to the hospitalist service. Final x-rays will be obtained in the PACU. The patient will be WBAT with a walker. The patient will be seen by PT/OT. The patient's labs will be checked in the am. DVT prophylaxis with TEDs, SCD's, while in the hospital, and ASA 81 mg BID starting in am due to spinal and continued for 6 weeks. I attest to the content of the Intraoperative Record and any orders documented therein. Any exceptions are noted below.
--- NOTE | 2019-09-14 11:59 | Anesthesiology Progress Note ---
Date of Service September 14, 2019 Anesthesia Post Procedure Vital Signs Vital Signs: Temp Pulse Pulse Resp BP Pulse Ox 09/14/19 11:45 90 16 183/82 H 94 09/14/19 11:35 36.9 C 86 16 195/86 H 99 09/14/19 11:25 85 16 198/88 H 100 09/14/19 11:19 37.1 C 87 16 187/81 H 99 09/14/19 07:11 36.6 C 94 H 16 170/81 H 91 09/13/19 23:35 37.2 C 92 H 16 178/79 H 92 09/13/19 15:50 91 09/13/19 15:25 36.8 C 85 12 153/63 H 95 09/13/19 12:20 36.9 C 85 16 157/69 H 94 Pain Intensity Right Hip: Pain Intensity: 2 Transfer of Care Handoff Completed per policy Notes Mental Status: alert / awake / arousable and participated in evaluation Patient Amnestic to Procedure: Yes Nausea / Vomiting: adequately controlled Pain: adequately controlled Airway Patency, RR, SpO2: stable & adequate BP & HR: stable & adequate Hydration State: stable & adequate Neuraxial Anesthesia: was administered and sensory block is resolving Anesthetic Complications: no major complications apparent and Pt Satisfied with anesthetic care
--- NOTE | 2019-09-14 12:01 | XRay Report ---
RIGHT HIP 2 VIEWS CLINICAL HISTORY: Postoperative examination. FINDINGS: AP and crosstable lateral portable views of the right hip are compared to study dated 09/13. The skeletal structures are osteopenic. A unipolar right hip arthroplasty is in near-anatomic alignment. There is no radiographic evidence of acute fracture. Subcutaneous gas and soft tissue swel ling are expected postoperative findings. Atherosclerotic calcification is noted in the right femoral artery. IMPRESSION: Expected postoperative findings status post right hip arthroplasty. No fracture is seen. Electronically signed by: Jose F Cohn M.D. 09/14/2019 11:59 AM
[2019-09-14] MEDS ORDERED: ACETAMINOPHEN 500 MG TAB PO PRN (12:12)
[2019-09-14] MEDS: sulfaSALAzine 500 MG TABEC PO SCH ×3 (12:47→20:52)
[2019-09-14] MEDS: NICOTINE 7 MG/24 HR TDSY TD SCH (12:50)
[2019-09-14] MEDS: CEROVITE ADV FORMULA TAB PO SCH (12:51)
[2019-09-14] MEDS: DULOXETINE HCL 20 MG CAP PO SCH (12:51)
[2019-09-14] MEDS: ATORVASTATIN 20 MG TAB PO SCH (12:51)
[2019-09-14] MEDS: predniSONE 10 MG TABLET PO SCH (12:52)
[2019-09-14] MEDS: CHOLECALCIFEROL 1,000 UNITS 25 MCG TAB PO SCH (12:52)
[2019-09-14] MEDS: OXYCODONE HCL IR 5 MG TAB (IMMEDIATE RELEASE) PO PRN ×2 (16:57→20:55)
[2019-09-14] MEDS: CEFAZOLIN 1000MG 1,000 MG/7.5 ML SYR IV SCH (16:58)
--- NOTE | 2019-09-14 17:40 | Hospitalist Progress Note ---
Date of Service September 14, 2019 Assessment & Plan (1) Hip fracture: 89-year-old female status post mechanical fall resulting in right subcapital hip fracture 4 days ago. Patient in considerable discomfort. Extremity is neurovascularly intact. - s/p Right Hip Hemiarthroplasty 09/[address] Santana Neurovascular checks every 4 hours Pain control with Tylenol, oxycodone 5 mg p.o. every 4 hours as needed and Dilaudid 0.5 mg IV every 2 hours as needed. UC pending -We will hold lisinopril/HCTZ to avoid post operative hypotension - resume aspirin when ok with surgery -Close monitoring of postoperative wound. Patient elderly, on chronic steroids and an active smoker which all may inhibit healing (2) Leukocytosis: Resolved - most likely reactive in setting of recent trauma. Patient also on chronic steroids, prednisone 10 mg p.o. daily. Urine culture ordered (3) Hyponatremia: Sodium = 129 on admission, improved to 133 today. Patient reports decreased appetite and poor oral intake prior to arrival. Suspect hypovolemic hyponatremia. IV hydration with normal saline at 80 mL/h x 2 L - prp am (4) Hypertension: Blood pressure elevated Pain control as above Holding HCTZ/lisinopril for now. hydralazine prn while holding bp meds (5) Hyperlipidemia: Chronic. Stable. Continue atorvastatin 20 mg p.o. daily (6) Glaucoma: Chronic. Stable. Continue latanoprost drops (7) Rheumatoid arthritis: Chronic. Stable. Continue prednisone 10 mg p.o. daily. Close monitoring of postoperative wound healing Continue sulfasalazine 500 mg p.o. 3 times daily We will hold meloxicam 15 mg for now (8) Depression: Patient reports experiencing depressive symptoms after her 2 years ago. States that her moods have since improved Continue duloxetine 20 mg p.o. daily (9) Insomnia: Chronic. Continue Benadryl p.o. nightly (10) Tobacco use: Patient reports smoking approximately 1/2 pack/day. Encouraged her to quit smoking. -Nicotine patch. Patient reports trying this in the past and having some mild skin irritation but wishes to try it again (11) DVT prophylaxis: per surgery - asa bid Subjective Ms. Dumont is status post right hip hemiarthroplasty following a fall with hip fracture. She is feeling well. Family is at bedside. No complaints ROS Constitutional: no chills, aches, sweats or fever Respiratory: no sob,cough, sputum, or wheezing Cardiac: no chest pain, palpitations, edema, orthopnea or lightheadedness GI: no abdominal pain, nausea, vomiting, diarrhea or constipation : no dysuria or hesitancy Extremities: no joint pain or weakness Skin: no rash All other systems reviewed and negative Physical Exam Physical Exam: General: no distress Eyes: normal inspection, PERLL Respiratory: chest non tender, clear to auscultation, normal breath sounds, no respiratory distress, no accessory muscle use Cardiac: regular rate and rhythm, no rub or gallop, no murmur, no edema, no jvd GI/: active bowel sounds, no abd pain or tenderness, soft, non distended Extremities: normal range of motion, normal strength, non tender Neuro/Psych: alert and oriented x 3, normal mood and affect Skin: normal color, dry Results & Data Vital Signs (Past 12 Hours) Vital Signs Temp Pulse Pulse Resp BP Pulse Ox 09/14/19 14:23 36.5 C 104 H 16 148/56 H 90 09/14/19 13:24 36.5 C 104 H 16 116/57 L 90 09/14/19 12:46 36.5 C 89 16 164/75 H 93 09/14/19 12:18 36.3 C L 92 H 18 180/76 H 91 09/14/19 11:45 90 16 183/82 H 94 09/14/19 11:35 36.9 C 86 16 195/86 H 99 09/14/19 11:25 85 16 198/88 H 100 09/14/19 11:19 37.1 C 87 16 187/81 H 99 09/14/19 07:11 36.6 C 94 H 16 170/81 H 91 PG Care Time/CCT Total # of Minutes Spent Total Time Spent with Patient: Total time spent is greater than 50% in coordination of care (as documented) at patient's floor/unit and/or counseling patient: (1) Hip fracture Encounter type: initial encounter Fracture type: closed Laterality: right Qualified Code(s): S72.001A - Fracture of unspecified part of neck of right femur, initial encounter for closed fracture (2) Leukocytosis Leukocytosis type: unspecified Qualified Code(s): D72.829 - Elevated white blood cell count, unspecified (3) Hypertension Hypertension type: essential hypertension Qualified Code(s): I10 - Essential (primary) hypertension (4) Hyperlipidemia Hyperlipidemia type: unspecified Qualified Code(s): E78.5 - Hyperlipidemia, unspecified (5) Glaucoma Glaucoma type: unspecified Laterality: unspecified laterality Qualified Code(s): H40.9 - Unspecified glaucoma (6) Rheumatoid arthritis Rheumatoid arthritis location: unspecified site Rheumatoid factor presence: unspecified presence Qualified Code(s): M06.9 - Rheumatoid arthritis, unspecified (7) Depression Depression Type: major depressive disorder Major depression recurrence: recurrent Active/Remission status: remission status unspecified Qualified Code(s): F33.9 - Major depressive disorder, recurrent, unspecified
[2019-09-14] MEDS ORDERED: HydrALAZINE HCL 20 MG/ML VIAL IV PRN (17:41)
[2019-09-14] MEDS: DOCUSATE SODIUM/SENNA 50/8.6MG TAB PO SCH (20:52)
[2019-09-14] MEDS: LATANOPROST 0.005% OP SOLN 2.5 ML BTL OPB SCH (20:53)
[2019-09-15] MEDS: CEFAZOLIN 1000MG 1,000 MG/7.5 ML SYR IV SCH ×2 (00:03→09:02)
[2019-09-15 05:57] LABS: Basophils # (auto) 0.01 K/uL (0-0.2); Basophils % (auto) 0.1 %; Eosinophils # (auto) 0.01 K/uL (0-0.5); Eosinophils % (auto) 0.1 %; Hematocrit (blood only) 33.1 % (37-47); Hemoglobin 11.2 g/dL (12.0-16.0); Immature Granulocytes # (auto) 0.04 K/uL (0.00-0.02); Immature Granulocytes % (auto) 0.4 %; Lymphocytes # (auto) 1.46 K/uL (1.2-3.4); Lymphocytes % (auto) 14.1 %; Mean Corpuscular Hemoglobin 32.4 pg (25-34); Mean Corpuscular Hgb Conc 33.8 g/dL (32-36); Mean Corpuscular Volume 95.7 fL (80-100); Mean Platelet Volume 9.3 fL (7.4-10.4); Monocytes # (auto) 1.22 K/uL (0.11-0.59); Monocytes % (auto) 11.8 %; Neutrophils # (auto) 7.59 K/uL (1.4-6.5); Neutrophils % (auto) 73.5 %; Platelet Count 305 K/uL (130-400); RDW Coefficient of Variation 14.2 % (11.5-14.5); RDW Standard Deviation 49.3 fL (36.4-46.3); Red Blood Count 3.46 M/uL (4.2-5.4); White Blood Count 10.33 K/uL (4.8-10.8)
[2019-09-15 06:29] LABS: BUN Creatinine Ratio 23.7 (10-20); Calcium 8.8 mg/dl (8.5-10.1); Creatinine Clr Calc Pharmacy 42.1 ml/min; Est GFR (African American) 88.8; Est GFR (Non-African American) 76.6; Potassium 4.2 mmol/L (3.5-5.1)
[2019-09-15 06:39] LABS: Prealbumin 18.3 mg/dl (20-40)
--- NOTE | 2019-09-15 08:41 | Anesthesiology Progress Note ---
Date of Service September 15, 2019 Anesthesia Post Procedure Vital Signs Vital Signs: Temp Pulse Pulse Resp BP Pulse Ox 09/15/19 07:23 36.9 C 99 H 16 148/71 H 91 09/15/19 04:00 37.0 C 96 H 17 161/71 H 92 09/14/19 23:06 36.8 C 91 H 17 162/76 H 91 09/14/19 20:12 36.8 C 91 H 16 154/76 H 92 09/14/19 14:23 36.5 C 104 H 16 148/56 H 90 09/14/19 13:24 36.5 C 104 H 16 116/57 L 90 09/14/19 12:46 36.5 C 89 16 164/75 H 93 09/14/19 12:18 36.3 C L 92 H 18 180/76 H 91 09/14/19 11:45 90 16 183/82 H 94 09/14/19 11:35 36.9 C 86 16 195/86 H 99 09/14/19 11:25 85 16 198/88 H 100 09/14/19 11:19 37.1 C 87 16 187/81 H 99 Pain Intensity Right Hip: Pain Intensity: 5 Notes Mental Status: alert / awake / arousable Nausea / Vomiting: adequately controlled Pain: adequately controlled Airway Patency, RR, SpO2: stable & adequate BP & HR: stable & adequate Hydration State: stable & adequate Neuraxial Anesthesia: was administered and sensory block resolved Anesthetic Complications: no major complications apparent and Pt Satisfied with anesthetic care
[2019-09-15] MEDS: CEROVITE ADV FORMULA TAB PO SCH (09:03)
[2019-09-15] MEDS: sulfaSALAzine 500 MG TABEC PO SCH ×3 (09:03→21:19)
[2019-09-15] MEDS: ATORVASTATIN 20 MG TAB PO SCH (09:03)
[2019-09-15] MEDS: NICOTINE 7 MG/24 HR TDSY TD SCH (09:03)
[2019-09-15] MEDS: ASPIRIN 81 MG ECTAB PO SCH ×2 (09:03→21:20)
[2019-09-15] MEDS: predniSONE 10 MG TABLET PO SCH (09:03)
[2019-09-15] MEDS: DULOXETINE HCL 20 MG CAP PO SCH (09:04)
[2019-09-15] MEDS: CHOLECALCIFEROL 1,000 UNITS 25 MCG TAB PO SCH (09:04)
[2019-09-15] MEDS: LISINOPRIL/HCTZ 10/12.5MG TAB PO SCH (10:25)
[2019-09-15] MEDS: MELOXICAM 7.5 MG TAB PO SCH (10:25)
--- NOTE | 2019-09-15 12:49 | Orthopedic Progress Note ---
Date of Service September 15, 2019 Assessment & Plan (1) Hip fracture: POD #1, s/p Right hip hemiarthroplasty, doing as well as expected. Continue care per primary Hospitalist service. Resume diet. WBAT with walker. PT/OT DVT Prophylaxis: TEDs for 3 weeks, and SCDs while in hospital. ASA 81 mg BID for 6 weeks. Change dressing to Silverlon 09/16/2019. D/C planning. Subjective Doing alright. Some right hip pain. Review of Systems Review of Systems: All systems reviewed & are unremarkable except as noted in HPI & below Physical Exam Physical Exam: RLE: Dressing clean, dry, intact. Calf soft and non-tender. Ambulating with walker to chair. Results & Data Vital Signs (Past 12 Hours) Vital Signs Temp Pulse Resp BP Pulse Ox 09/15/19 11:27 36.9 C 93 H 17 149/64 H 91 09/15/19 07:23 36.9 C 99 H 16 148/71 H 91 09/15/19 04:00 37.0 C 96 H 17 161/71 H 92 Laboratory Results 09/15/19 09/15/19 09/15/19 Range/Units 04:53 04:53 04:53 WBC 10.33 (4.8-10.8) K/uL RBC 3.46 L (4.2-5.4) M/uL Hgb 11.2 L (12.0-16.0) g/dL Hct 33.1 L (37-47) % MCV 95.7 (80-100) fL MCH 32.4 (25-34) pg MCHC 33.8 (32-36) g/dL RDW Std Deviation 49.3 H (36.4-46.3) fL RDW Coeff of Chiara 14.2 (11.5-14.5) % Plt Count 305 (130-400) K/uL MPV 9.3 (7.4-10.4) fL Immature Gran % (Auto) 0.4 % Neut % (Auto) 73.5 % Lymph % (Auto) 14.1 % Howard % (Auto) 11.8 % Eos % (Auto) 0.1 % Baso % (Auto) 0.1 % Immature Gran # (Auto) 0.04 H (0.00-0.02) K/uL Neut # (Auto) 7.59 H (1.4-6.5) K/uL Lymph # (Auto) 1.46 (1.2-3.4) K/uL Howard # (Auto) 1.22 H (0.11-0.59) K/uL Eos # (Auto) 0.01 (0-0.5) K/uL Baso # (Auto) 0.01 (0-0.2) K/uL Sodium 136 (136-145) mmol/L Potassium 4.2 (3.5-5.1) mmol/L Chloride 102 (98-107) mmol/L Carbon Dioxide 28 (21-32) mmol/L Anion Gap 6.0 (3-11) BUN 17 (7-18) mg/dl Creatinine 0.71 (0.6-1.2) mg/dl Est Cr Clr Drug Dosing 42.1 ml/min Est GFR ( Amer) 88.8 Est GFR (Non-Af Amer) 76.6 BUN/Creatinine Ratio 23.7 H (10-20) Glucose 105 H (70-99) mg/dl Calcium 8.8 (8.5-10.1) mg/dl Prealbumin 18.3 L (20-40) mg/dl 25-OH Vitamin D Total 38.6 (30-100) ng/ml Synovial Crystals 09/14/19 Range/Units Unknown WBC (4.8-10.8) K/uL RBC (4.2-5.4) M/uL Hgb (12.0-16.0) g/dL Hct (37-47) % MCV (80-100) fL MCH (25-34) pg MCHC (32-36) g/dL RDW Std Deviation (36.4-46.3) fL RDW Coeff of Chiara (11.5-14.5) % Plt Count (130-400) K/uL MPV (7.4-10.4) fL Immature Gran % (Auto) % Neut % (Auto) % Lymph % (Auto) % Howard % (Auto) % Eos % (Auto) % Baso % (Auto) % Immature Gran # (Auto) (0.00-0.02) K/uL Neut # (Auto) (1.4-6.5) K/uL Lymph # (Auto) (1.2-3.4) K/uL Howard # (Auto) (0.11-0.59) K/uL Eos # (Auto) (0-0.5) K/uL Baso # (Auto) (0-0.2) K/uL Sodium (136-145) mmol/L Potassium (3.5-5.1) mmol/L Chloride (98-107) mmol/L Carbon Dioxide (21-32) mmol/L Anion Gap (3-11) BUN (7-18) mg/dl Creatinine (0.6-1.2) mg/dl Est Cr Clr Drug Dosing ml/min Est GFR ( Amer) Est GFR (Non-Af Amer) BUN/Creatinine Ratio (10-20) Glucose (70-99) mg/dl Calcium (8.5-10.1) mg/dl Prealbumin (20-40) mg/dl 25-OH Vitamin D Total (30-100) ng/ml Synovial Crystals (1) Hip fracture Encounter type: initial encounter Fracture type: closed Laterality: right Qualified Code(s): S72.001A - Fracture of unspecified part of neck of right femur, initial encounter for closed fracture
[2019-09-15] MEDS: OXYCODONE HCL IR 5 MG TAB (IMMEDIATE RELEASE) PO PRN (18:11)
[2019-09-15] MEDS ORDERED: [UNRECOGNIZED DRUG - OTHER] PO SCH (21:00)
[2019-09-15] MEDS: LATANOPROST 0.005% OP SOLN 2.5 ML BTL OPB SCH (21:22)
[2019-09-15] MEDS: DOCUSATE SODIUM/SENNA 50/8.6MG TAB PO SCH (21:22)
--- NOTE | 2019-09-15 23:20 | Hospitalist Progress Note ---
Date of Service September 15, 2019 Assessment & Plan (1) Hip fracture: 89-year-old female status post mechanical fall resulting in right subcapital hip fracture 4 days ago. Patient in considerable discomfort. Extremity is neurovascularly intact. - s/p Right Hip Hemiarthroplasty 09/[address] Santana Neurovascular checks every 4 hours Pain control with Tylenol, oxycodone 5 mg p.o. every 4 hours as needed and Dilaudid 0.5 mg IV every 2 hours as needed. -Resumed BP meds. - resume aspirin when ok with surgery -Close monitoring of postoperative wound. Patient elderly, on chronic steroids and an active smoker which all may inhibit healing (2) Leukocytosis: Resolved - most likely reactive in setting of recent trauma. Patient also on chronic steroids, prednisone 10 mg p.o. daily. Urine culture ordered (3) Hyponatremia: Sodium = 129 on admission, improved to 136 today. Patient reports decreased appetite and poor oral intake prior to arrival. Suspect hypovolemic hyponatremia. (4) Hypertension: Blood pressure elevated Pain control as above Resumed BP meds hydralazine prn while holding bp meds (5) Hyperlipidemia: Chronic. Stable. Continue atorvastatin 20 mg p.o. daily (6) Glaucoma: Chronic. Stable. Continue latanoprost drops (7) Rheumatoid arthritis: Chronic. Stable. Continue prednisone 10 mg p.o. daily. Close monitoring of postoperative wound healing Continue sulfasalazine 500 mg p.o. 3 times daily We will hold meloxicam 15 mg for now (8) Depression: Patient reports experiencing depressive symptoms after her 2 years ago. States that her moods have since improved Continue duloxetine 20 mg p.o. daily (9) Insomnia: Chronic. Continue Benadryl p.o. nightly (10) Tobacco use: Patient reports smoking approximately 1/2 pack/day. Encouraged her to quit smoking. -Nicotine patch. Patient reports trying this in the past and having some mild skin irritation but wishes to try it again (11) DVT prophylaxis: per surgery - asa bid Subjective 89 yo female reports feeling well. She has no new complaints at this time. Review of Systems Review of Systems: All systems reviewed & are unremarkable except as noted in HPI & below Physical Exam Physical Exam: General: no distress Eyes: normal inspection, PERLL Respiratory: chest non tender, clear to auscultation, normal breath sounds, no respiratory distress, no accessory muscle use Cardiac: regular rate and rhythm, no rub or gallop, no murmur, no edema, no jvd GI/: active bowel sounds, no abd pain or tenderness, soft, non distended Extremities: normal range of motion, normal strength, non tender Neuro/Psych: alert and oriented x 3, normal mood and affect Skin: normal color, dry Results & Data Vital Signs (Past 12 Hours) Vital Signs Temp Pulse Resp BP Pulse Ox 09/15/19 15:59 36.9 C 93 H 17 131/62 94 09/15/19 11:27 36.9 C 93 H 17 149/64 H 91 PG Care Time/CCT Total # of Minutes Spent Total Time Spent with Patient: Total time spent is greater than 50% in coordination of care (as documented) at patient's floor/unit and/or counseling patient: (1) Rheumatoid arthritis Rheumatoid arthritis location: unspecified site Rheumatoid factor presence: unspecified presence Qualified Code(s): M06.9 - Rheumatoid arthritis, unspecified (2) Hip fracture Encounter type: initial encounter Fracture type: closed Laterality: right Qualified Code(s): S72.001A - Fracture of unspecified part of neck of right femur, initial encounter for closed fracture (3) Depression Active/Remission status: remission status unspecified Depression Type: major depressive disorder Major depression recurrence: recurrent Qualified Code(s): F33.9 - Major depressive disorder, recurrent, unspecified (4) Hyperlipidemia Hyperlipidemia type: unspecified Qualified Code(s): E78.5 - Hyperlipidemia, unspecified (5) Leukocytosis Leukocytosis type: unspecified Qualified Code(s): D72.829 - Elevated white blood cell count, unspecified (6) Glaucoma Glaucoma type: unspecified Laterality: unspecified laterality Qualified Code(s): H40.9 - Unspecified glaucoma (7) Hypertension Hypertension type: essential hypertension Qualified Code(s): I10 - Essential (primary) hypertension
[2019-09-16] MEDS: OXYCODONE HCL IR 5 MG TAB (IMMEDIATE RELEASE) PO PRN (08:25)
[2019-09-16] MEDS: sulfaSALAzine 500 MG TABEC PO SCH (08:25)
[2019-09-16] MEDS: LISINOPRIL/HCTZ 10/12.5MG TAB PO SCH (08:25)
[2019-09-16] MEDS: MELOXICAM 7.5 MG TAB PO SCH (08:26)
[2019-09-16] MEDS: ASPIRIN 81 MG ECTAB PO SCH (08:26)
[2019-09-16] MEDS: CEROVITE ADV FORMULA TAB PO SCH (08:27)
[2019-09-16] MEDS: ATORVASTATIN 20 MG TAB PO SCH (08:27)
[2019-09-16] MEDS: CHOLECALCIFEROL 1,000 UNITS 25 MCG TAB PO SCH (08:27)
[2019-09-16] MEDS: DULOXETINE HCL 20 MG CAP PO SCH (08:27)
[2019-09-16] MEDS: NICOTINE 7 MG/24 HR TDSY TD SCH (08:27)
[2019-09-16] MEDS: predniSONE 10 MG TABLET PO SCH (08:27)
--- NOTE | 2019-09-16 09:53 | Orthopedic Progress Note ---
Date of Service September 16, 2019 Assessment & Plan (1) Hip fracture: POD #1, s/p Right hip hemiarthroplasty, doing as well as expected. Orthopedically patient is stable to be discharged to [facility] for inpatient rehab. Discharge will be deferred to Hospitalist service WBAT with walker. PT/OT DVT Prophylaxis: TEDs for 3 weeks, and SCDs while in hospital. ASA 81 mg BID for 6 weeks. Silverlon applied this AM F/u with Charissa Washington PA-C at [facility] on 09/29/19 @ 8 AM (an appointment has been scheduled for patient) With orthopedic issues call . Subjective This 89 yo F is day 2 s/p right hip hemiarthroplasty after falling several days ago. Patient's family is at bedside and relayed info from case management associate that a bed had been opened at [facility] and patient would like to occupy that bed before it is filled. She has no complaints at present. She denies CP, SOB, nausea, vomiting, fever, chills, sweats or lethargy. Review of Systems Review of Systems: All systems reviewed & are unremarkable except as noted in HPI & below Physical Exam Physical Exam: Right Hip: Silverlon dressing in place and clean, dry and intact. Knee ROM from 0-90 without difficulty or pain. NO pain with light passive internal and external rotation. Able to perform SLRT. Quad strength 3/5. Calf soft and supple. Able to actively dorsi/plantar flex foot. Neg log roll. Mild TTP over posterior hip. NV intact in Rt LE. Periph pulse easily palpable. Results & Data Vital Signs (Past 12 Hours) Vital Signs Temp Pulse Pulse Resp BP Pulse Ox 09/16/19 06:30 37.0 C 90 17 161/67 H 93 09/15/19 23:39 36.7 C 102 H 17 147/68 H 93 Laboratory Results 09/14/19 Range/Units Unknown Synovial Crystals (1) Hip fracture Encounter type: initial encounter Fracture type: closed Laterality: right Qualified Code(s): S72.001A - Fracture of unspecified part of neck of right femur, initial encounter for closed fracture
--- NOTE | 2019-09-21 12:06 | Discharge Summary ---
Date of Service September 16, 2019 Admission HPI Per Admitting Provider Afia Dumont is a pleasant 89-year-old female with history of hypertension, hyperlipidemia and rheumatoid arthritis presenting with subcapital fracture of the right hip. Patient reports that on 09/09/2019 she was ambulating from her living room to her kitchen when she lost her balance and fell onto her right side. She had severe pain in the right hip immediately following the fall. She has been ambulating using a walker with some difficulty for the last 5 days. She reports she bumped her head slightly during the fall but denies loss of consciousness. Denies chest pain/palpitations/dizziness/sync ope. She is complaining of left ankle pain Patient's 2 years ago. Family reports a progressive decline in patient's functional status since then. She is fairly sedentary and has poor balance. ER course: Fentanyl x 25 mcg, morphine x 4 mg, 4 mg, 2 mg, normal saline x 1 L Principal Diagnosis hip fracture Discharge Exam General: no distress Eyes: normal inspection, PERLL Respiratory: chest non tender, clear to auscultation, normal breath sounds, no respiratory distress, no accessory muscle use Cardiac: regular rate and rhythm, no rub or gallop, no murmur, no edema, no jvd GI/: active bowel sounds, no abd pain or tenderness, soft, non distended Extremities: normal range of motion, normal strength, non tender Neuro/Psych: alert and oriented x 3, normal mood and affect Skin: normal color, dry Discharge Data Allergies Allergy/AdvReac Type Severity Reaction Status Date / Time Sulfa (Sulfonamide Allergy Unknown Rash Verified 09/13/19 10:58 Antibiotics) nicotine AdvReac Mild PATCH-SKIN Verified 09/13/19 10:58 IRRITATION Consultations 09/13/19 10:16 ED Decision to Admit Stat 09/13/19 12:25 Consult Case Management - Discharge Planning Routine Consult Orthopedic Surgery Routine 09/14/19 11:21 Consult Case Management - Discharge Planning Routine Procedures Performed Operation Date: 09/14/19 07:30 Actual Procedures p Right Hip Hemiarthroplasty, cemented (Right) - Albert Santana MD Ordered Studies 09/13/19 09:12 CT head/brain wo con Stat Hospital Course (1) Hip fracture: 89-year-old female status post mechanical fall resulting in right subcapital hip fracture 4 days ago. Patient in considerable discomfort. Extremity is neurovascularly intact. - s/p Right Hip Hemiarthroplasty 09/[address] Santana Neurovascular checks every 4 hours During hospital stay, pain control with Tylenol, oxycodone 5 mg p.o. every 4 hours as needed and Dilaudid 0.5 mg IV every 2 hours as needed. - Discharged on oxycodone. - Resumed BP meds. - will discharge on aspirin 81 mg PO BID for 6 weeks then return daily - Close monitoring of postoperative wound. Patient elderly, on chronic steroids and an active smoker which all may inhibit healing (2) Leukocytosis: Resolved - most likely reactive in setting of recent trauma. Patient also on chronic steroids, prednisone 10 mg p.o. daily. Urine culture ordered (3) Hyponatremia: Sodium = 129 on admission, improved to 136.. Patient reports decreased appetite and poor oral intake prior to arrival. Suspect hypovolemic hyponatremia was cause. (4) Hypertension: Blood pressure elevated Pain control as above Resumed BP meds hydralazine prn while holding bp meds (5) Hyperlipidemia: Chronic. Stable. Continue atorvastatin 20 mg p.o. daily (6) Glaucoma: Chronic. Stable. Continue latanoprost drops (7) Rheumatoid arthritis: Chronic. Stable. Continue prednisone 10 mg p.o. daily. Close monitoring of postoperative wound healing Continue sulfasalazine 500 mg p.o. 3 times daily We will hold meloxicam 15 mg for now (8) Depression: Patient reports experiencing depressive symptoms after her 2 years ago. States that her moods have since improved Continue duloxetine 20 mg p.o. daily (9) Insomnia: Chronic. Continue Benadryl p.o. nightly (10) Tobacco use: Patient reports smoking approximately 1/2 pack/day. Encouraged her to quit smoking. -Nicotine patch. Patient reports trying this in the past and having some mild skin irritation but wishes to try it again (11) DVT prophylaxis: per surgery - asa bid Total Time Total Time Spent Total Time Spent (In Minutes): 32 Total Time Includes: Examination of the Patient, Discharge Planning and Medication Reconciliation Discharge Plan Discharge Items Patient Disposition: Transfer Inpatient Rehab Fac Reason For Visit: RIGHT HIP FX Discharge Diagnosis: Right hip fracture Activity: Resume your previous activity Non-emergency contact: Primary Care Provider Call non-emergency contact if: you have any medication questions Follow-up/Referrals: Ben Schmidt [Primary Care Provider] - Diet: Heart Healthy Addtl Attending Provider Instructions: Weight bear with walker as tolerated. DVT Prophylaxis: PAMELA STOCKINGS for 3 weeks ASPIRIN 81 mg BID for 6 weeks, then return to once daily F/u with Charissa Washington PA-C at [facility] on 09/29/19 @ 8 AM (an appointment has been scheduled for patient) With orthopedic issues call . F/U with Primary care within 2 weeks. Pending Studies at Discharge: No Studies:: Stand-Alone Forms: My [employer], Opioid Pain Management, Smoking Cessation Skilled Items Patient informed of condition?: Yes DNR: No Discharge Level of Care: Acute rehab Communicable Disease: No Discharge Prognosis: Stable Lines: None Urinary Catheter: No Medications and DC Order Prescriptions: New sennosides-docusate sodium [Senokot-S] 8.6-50 mg Tablet 2 tab PO HS Qty: 0 RF: 0 aspirin [Ecotrin Low Strength] 81 mg Tablet,Delayed Release (Dr/Ec) 81 mg PO BID Qty: 60 RF: 0 bisacodyl [Laxative (bisacodyl)] 10 mg Suppository 10 mg TN DAILY PRN (Reason: constipation) Qty: 30 RF: 0 nicotine 7 mg/24 hr Patch 24 Hour 7 mg transdermal QAM Qty: 0 RF: 0 oxycodone 5 mg Tablet 5 mg PO Q12H PRN (Reason: severe pain) Qty: 14 RF: 0 Continued latanoprost 0.005 % Drops 1 drp OPB HS RF: 0 Centrum Silver Women 8 mg iron-400 mcg-300 mcg Tablet 1 tab PO QAM RF: 0 prednisone 10 mg tablet 10 mg PO DAILY RF: 0 atorvastatin 20 mg tablet 20 mg PO DAILY RF: 0 meloxicam 15 mg tablet 15 mg PO DAILY RF: 0 sulfasalazine 500 mg tablet,delayed release (DR/EC) 500 mg PO TID RF: 0 acetaminophen [Acetaminophen Extra Strength] 500 mg Tablet 500 mg PO DIRECTED PRN (Reason: Fever Or Pain) RF: 0 diphenhydramine HCl [ZzzQuil] 25 mg Capsule 0 mg PO HS RF: 0 lisinopril-hydrochlorothiazide 10-12.5 mg tablet 1 tab PO DAILY RF: 0 duloxetine 20 mg capsule,delayed release(DR/EC) 20 mg PO DAILY RF: 0 cholecalciferol (vitamin D3) [Vitamin D3] 50 mcg (2,000 unit) Capsule 50 mcg PO DAILY RF: 0 Discontinued aspirin 81 mg Tablet,Delayed Release (Dr/Ec) 81 mg PO QAM RF: 0 Discharge Orders: Discharge Order (Routine); Ordered 09/16/19 Ordered By: Dequan Alvarado Admission Data Admit Date/Time: 09/13/19 11:17 Attending Provider: Dequan Alvarado Admit Provider: Earline Ridley Primary Care Provider: Ben Schmidt. Other Providers: [facility] ; Earline Ridley ; Albert Santana ; River Cha ; Bello Trevizo ; Ruth Gilmore ; Temitope Mora ; Saurabh Carter ; Placido Romero ; Erik Cantrell ; Erik Yang ; Magi Washington ; Mega Keene Other Interventions: Discharge Summary Assessment (RN) Last Done: 09/16/19 10:20 DC Date/Time DO NOT enter until pt leaves facility: 09/16/19 13:52
== END 2019-09-16 13:52 | DRG 467 ==
LOC: ED 08:47 → SUATTDRO 11:17 → 3W 11:17

== ENCOUNTER 2019-09-28 11:16 | Inpatient (IN) ==
[2019-09-28] MEDS ORDERED: SODIUM CHLORIDE 0.9% 500 ML IV ONE (12:59)
--- NOTE | 2019-09-28 12:59 | XRay Report ---
XR chest 1V portable CLINICAL HISTORY: Chest Pain dyspnea COMPARISON STUDY: 09/13/2019 FINDINGS: The bones soft tissues and hemidiaphragms are normal. The cardiomediastinal silhouette is n ormal. The lungs are clear. The pulmonary vasculature is normal. IMPRESSION: Negative chest. ACT 112: Negative or not required by law. The above report was generated using voice recognition software. It may contain grammatical, syntax or spelling errors. Electronically signed by: Peter Santillan M.D. 09/28/2019 12:57 PM
[2019-09-28 13:25] LABS: Appearance Urine Cloudy (Clear); Bacteria Urine Automated Negative (Negative); Basophils # (auto) 0.02 K/uL (0-0.2); Basophils % (auto) 0.1 %; Bilirubin Urine Negative (Negative); Blood Urine Negative (Negative); Color Urine Dark Yellow; Eosinophils # (auto) 0.01 K/uL (0-0.5); Eosinophils % (auto) 0.1 %; Glucose Urine UA Negative (Negative); Hematocrit (blood only) 32.6 % (37-47); Hemoglobin 11.1 g/dL (12.0-16.0); Immature Granulocytes # (auto) 0.13 K/uL (0.00-0.02); Immature Granulocytes % (auto) 0.8 %; Ketones Urine 1+ (Negative); Leukocyte Esterase Urine 1+ (Negative); Lymphocytes # (auto) 0.81 K/uL (1.2-3.4); Lymphocytes % (auto) 5.2 %; Mean Corpuscular Hemoglobin 32.6 pg (25-34); Mean Corpuscular Volume 95.9 fL (80-100); Mean Platelet Volume 9.3 fL (7.4-10.4); Monocytes # (auto) 0.59 K/uL (0.11-0.59); Monocytes % (auto) 3.8 %; Neutrophils # (auto) 13.91 K/uL (1.4-6.5); Nitrite Urine Negative (Negative); Platelet Count 417 K/uL (130-400); Protein Urine Negative (Negative); RBC Urine Automated 0-4 /hpf (0-4); RDW Coefficient of Variation 15.1 % (11.5-14.5); RDW Standard Deviation 52.2 fL (36.4-46.3); Specific Gravity Urine 1.018 (1.000-1.030); Urobilinogen Urine Negative (Negative); White Blood Count 15.47 K/uL (4.8-10.8); pH Urine 7.5 (4.5-7.5)
[2019-09-28 13:58] LABS: Alanine Aminotransferase 15 U/L (12-78); Albumin Globulin Ratio 0.9 (0.9-2); Albumin Level 2.9 gm/dl (3.4-5.0); Alkaline Phosphatase 92 U/L (45-117); Aspartate Aminotransferase 17 U/L (15-37); BUN Creatinine Ratio 31.4 (10-20); Bilirubin,Total 0.9 mg/dl (0.2-1); Blood Urea Nitrogen 23 mg/dl (7-18); Calcium 8.5 mg/dl (8.5-10.1); Carbon Dioxide 28 mmol/L (21-32); Chloride 88 mmol/L (98-107); Est GFR (African American) 85.8; Est GFR (Non-African American) 74.1; Globulin 3.3 gm/dl (2.5-4.0); Glucose 113 mg/dl (70-99); Lipase 68 U/L (73-393); Magnesium 1.8 mg/dl (1.8-2.4); Phosphorus 2.9 mg/dl (2.5-4.9); Potassium 4.8 mmol/L (3.5-5.1); Sodium 121 mmol/L (136-145); Total Protein 6.2 gm/dl (6.4-8.2); Troponin I < 0.015 ng/ml (0-0.045)
--- NOTE | 2019-09-28 14:41 | Electrocardiogram Report ---
Test Reason : Blood Pressure : / mmHG Vent. Rate : 084 BPM Atrial Rate : 084 BPM P-R Int : 134 ms QRS Dur : 086 ms QT Int : 362 ms P-R-T Axes : 035 030 118 degrees QTc Int : 427 ms Normal sinus rhythm Possible Old Inferior infarct Diffuse Nonspecific ST abnormality Abnormal ECG When compared with ECG of 13-SEP-2019 09:08, Minimal criteria for Inferior infarct are now Present Otherwise no significant change Confirmed by Jed Gonzales ([id number] on 09/28/2019 2:41:09 PM Referred By: [facility] Confirmed By:Jed Gonzales
--- NOTE | 2019-09-28 17:08 | Emergency Department Note ---
Entered by Marion Solano acting as a scribe for Mihai Swanson MD History of Present Illness General Chief complaint: Illness Stated complaint: SENT BY [facility] - [facility] Time Seen by Provider: 09/28/19 11:57 Source: patient and family History of Present Illness Onset (ago): hour(s) (today) Location: head (abnormal lab work) Pain Consistency: + other (episode) Quality: + other (abnormal lab work) Exacerbated By: + other Associated symptoms: + confusion, + loss of appetite, + nausea/vomiting (Positive nausea. Negative vomiting. ), + weakness and + other (Positive dizziness, weight loss, gagging while eating, current UTI. Negative hip pain and trouble ambulating.) Treatments prior to arrival: none The patient is an 89 year old female presenting to the Emergency Department complaining of an episode of abnormal lab work occurring today. The patients family reports that the patient was sent to the [facility] Emergency Department from [facility] where she resides after fracturing both of her hips. They state that the patient is sometimes confused, forgetful and sometimes cant perform daily tasks on her own - believing that the patient shouldn't be discharged home. They explain that the patients sodium is low. They note that the patient is often nauseous and dizzy in the mornings. They add that the patient has lost her appetite and as a result has lost a significant amount of weight. The patients family reports that when the patient tries to eat she often gags and that this has been an ongoing problem but has recently worsened. They state that the patient is currently being treated for a UTI. They explain that the patient is normally incontinent of her urine. They note that the patient was supposed to be discharged from [facility] today. They add that the patient received no treatments [employer] for her abnormal lab work. The patient denies confusion, hip pain and trouble ambulating. Home Medications Home Medications Medication Instructions Recorded Confirmed Type Centrum Silver Women 1 tab PO QAM 07/06/18 09/28/19 History latanoprost 1 drp OPB HS 07/06/18 09/28/19 History atorvastatin 20 mg PO QAM 09/05/19 09/28/19 History cholecalciferol (vitamin D3) 50 mcg PO QAM 09/05/19 09/28/19 History [Vitamin D3] duloxetine 20 mg PO QAM 09/05/19 09/28/19 History meloxicam 15 mg PO QAM 09/05/19 09/28/19 History prednisone 10 mg PO QAM 09/05/19 09/28/19 History sulfasalazine 500 mg PO TID 09/05/19 09/28/19 History aspirin [Ecotrin Low Strength] 81 mg PO BID #60 tab 09/16/19 09/28/19 Rx bisacodyl [Laxative (bisacodyl)] 10 mg AR DAILY PRN #30 ea 09/16/19 09/28/19 Rx nicotine 7 mg TRANSDERMAL QAM #0 ea 09/16/19 09/28/19 Rx oxycodone 5 mg PO Q12H PRN #14 tab 09/16/19 09/28/19 Rx acetaminophen [Tylenol] 325 mg PO Q6H 09/28/19 09/28/19 History docusate sodium [Colace] 100 mg PO BID 09/28/19 09/28/19 History lidocaine [Lidoderm] 2 patch TOPICAL QAM 09/28/19 09/28/19 History lisinopril 10 mg PO QAM 09/28/19 09/28/19 History melatonin 5 mg PO HS 09/28/19 09/28/19 History nitrofurantoin monohyd/m-cryst 100 mg PO BID 09/28/19 09/28/19 History polyethylene glycol 3350 [Miralax] 17 g PO QAM 09/28/19 09/28/19 History sennosides-docusate sodium 1 tab PO QDL PRN 09/28/19 09/28/19 History [Senokot-S] tramadol 50 mg PO Q6H PRN 09/28/19 09/28/19 History Allergies Allergy/AdvReac Type Severity Reaction Status Date / Time Sulfa (Sulfonamide Allergy Unknown Rash Verified 09/28/19 13:20 Antibiotics) nicotine AdvReac Mild PATCH-SKIN Verified 09/28/19 13:20 IRRITATION shrimp AdvReac Unknown Photosensit Unverified 09/28/19 13:21 ivity Past Med/Surg History Medical History Anxiety (Chronic) Depression (Chronic) Dyslipidemia (Chronic) Glaucoma (Chronic) Hearing deficit (Chronic) Hyperlipidemia (Chronic) Hypertension Kidney stones (Chronic) Osteoarthritis (Chronic) Rheumatoid arthritis (Chronic) Tobacco use Surgical History Hip fracture requiring operative repair History of cataract surgery (Resolved) left History of colonoscopy (Resolved) History of lithotripsy (Resolved) x 2 History of tooth extraction (Resolved) Nausea and vomiting after administration of anesthetic agent (Chronic) Family History Other No pertinent family history in first degree relatives Social History Preferred Language: Bruneian Communication Ability: Effective Drill Hand Required: No Beliefs That Will Affect Care: None marital status: / Current Living Situation: Alone Feels Safe at Home: Yes Safety Concerns: Feels Safe At This Time Smoking Status: Former smoker Tobacco Type: cigarettes ; Cigarettes Per Day: 1/2 ppd ; Smoking End Date: 2 weeks ago, nicotine patch on at this time per primary RN ; Second Hand Exposure: No ; Hx Alcohol Use: Yes Alcohol type: wine Hx Substance Use: No Review of Systems See HPI for pertinent positives & negatives. and A total of 10 systems reviewed and were otherwise negative Physical Exam Vital Signs Vital Signs - 24 hr 09/28/19 11:36 09/28/19 12:39 09/28/19 13:21 Temperature 36.8 C Temperature Source Oral Pulse Rate 89 85 Pulse Rate from SpO2 Sensor 85 Respiratory Rate 18 19 Blood Pressure 125/71 134/62 Blood Pressure Mean 89 82 Pulse Oximetry 90 93 94 Oxygen Delivery Method Room Air Sepsis Recent Fever Within 48 Hours No Sepsis Action Taken by Nursing No Action Required 09/28/19 13:30 09/28/19 14:00 09/28/19 14:30 Temperature Temperature Source Pulse Rate 83 84 85 Pulse Rate from SpO2 Sensor 84 84 85 Respiratory Rate 18 16 19 Blood Pressure 134/58 L 138/59 L 146/65 H Blood Pressure Mean 77 81 83 Pulse Oximetry 91 91 91 Oxygen Delivery Method Sepsis Recent Fever Within 48 Hours Sepsis Action Taken by Nursing 09/28/19 15:00 09/28/19 15:30 09/28/19 16:00 Temperature Temperature Source Pulse Rate 85 86 Pulse Rate from SpO2 Sensor 86 86 85 Respiratory Rate 24 24 20 Blood Pressure 149/64 H 163/71 H 139/64 Blood Pressure Mean 92 97 80 Pulse Oximetry 90 90 91 Oxygen Delivery Method Sepsis Recent Fever Within 48 Hours Sepsis Action Taken by Nursing 09/28/19 16:30 09/28/19 17:00 Temperature Temperature Source Pulse Rate Pulse Rate from SpO2 Sensor 91 H 87 Respiratory Rate 17 20 Blood Pressure 155/74 H 154/72 H Blood Pressure Mean 96 94 Pulse Oximetry 91 90 Oxygen Delivery Method Sepsis Recent Fever Within 48 Hours Sepsis Action Taken by Nursing GENERAL: Patient is fatigued appearing. Awake, alert, well-appearing, in no distress HENT: Normocephalic, atraumatic. Oropharynx with dry mucous membranes and otherwise unremarkable. EYES: Normal conjunctiva. Sclera non-icteric. EOMI. No nystamgus. PEARRL. NECK: Supple. No nuchal rigidity. FROM. No JVD. RESPIRATORY: CTAB. CARDIAC: Regular rate, normal rhythm. Extremities warm and well perfused. Pulses equal. ABDOMEN: Soft, non-distended. No tenderness to palpation. No rebound or guarding. No masses. RECTAL: Deferred. MUSCULOSKELETAL: Right lateral hip incision site clean, dry and intact. No significant edema. Compartment is soft. Chest examination reveals no tenderness. The back is symmetrical on inspection without obvious abnormality. There is no CVA tenderness to palpation. No joint edema. LOWER EXTREMITIES: Calves are equal size bilaterally and non-tender. No edema. No discoloration. NEURO: Normal sensorium. No sensory or motor deficits noted. 5/5 strength. SILT x 4 extremities. Normal cerebellar function including finger to nose, alternating palms. SKIN: No rash or jaundice noted. Course Course 1218: The patient was evaluated in room A12A, and a complete history and physical examination were performed. 1345: I reevaluated the patient and updated her family at this time. 1500: I discussed the patient's case with Dr. Dillard - [facility] hospital[place]. He will evaluate the patient for further management. Administered Medications Acetaminophen (Tylenol) 325 mg PO Q6H TIA Stop: 10/28/19 20:59 Last Admin: 09/28/19 21:41 Dose: 325 mg Documented by: [id number] Aspirin (Ecotrin Ectab) 81 mg PO BID TIA Stop: 10/28/19 20:59 Last Admin: 09/28/19 21:39 Dose: 81 mg Documented by: [id number] Docusate Sodium (Colace) 100 mg PO BID TIA Stop: 10/28/19 20:59 Last Admin: 09/28/19 21:40 Dose: Not Given Documented by: [id number] Enoxaparin Sodium (Lovenox) 40 mg SQ Q24H [facility] Stop: 10/28/19 20:59 Last Admin: 09/28/19 21:38 Dose: 40 mg Documented by: [id number] Sodium Chloride (Nss 1000ml) 1,000 mls @ 100 mls/hr IV .Q10H TIA Stop: 09/29/19 06:29 Last Infusion: 09/28/19 22:17 Dose: 100 mls/hr Documented by: [id number] Admin: 09/28/19 21:30 Dose: 75 mls/hr Documented by: [id number] Latanoprost (Xalatan Oph) 1 drops OPB HS [facility] Stop: 10/28/19 20:59 Last Admin: 09/28/19 21:43 Dose: 1 drops Documented by: [id number] Miscellaneous (Remove Lidoderm Patch) 1 ea N/A DAILY@2100 [facility] Stop: 10/28/19 20:59 Last Admin: 09/28/19 21:41 Dose: 1 ea Documented by: [id number] Sulfadiazine (Azulfidine Delayed Rel) 500 mg PO TID TIA Stop: 10/28/19 20:59 Last Admin: 09/28/19 21:37 Dose: 500 mg Documented by: [id number] Discontinued Medications Sodium Chloride (Nss) 500 mls @ 999 mls/hr IV .Q31M ONE Stop: 09/28/19 13:29 Last Infusion: 09/28/19 16:26 Dose: 0 mls/hr Documented by: [id number] Admin: 09/28/19 13:51 Dose: 999 mls/hr Documented by: [id number] Medical Decision Making Differential Diagnosis Differential Diagnosis includes but is not limited to dehydration, stroke, anemia, hypoglycemia, hyponatremia, hypernatremia, urinary tract infection, pneumonia, bronchitis, sepsis, gastroenteritis, additional abdominal pathology, metabolic abnormalities and infections. Medical Records Attestation: I reviewed the patient's medical records. Home Medications Current Medication List: was personally reviewed by me Laboratory Data Attestation: I reviewed the patient's lab results. Result diagrams: 09/28/19 13:11 09/28/19 20:03 Lab Results 09/28/19 09/28/19 09/28/19 Range/Units 13:11 13:11 13:11 WBC 15.47 H (4.8-10.8) K/uL RBC 3.40 L (4.2-5.4) M/uL Hgb 11.1 L (12.0-16.0) g/dL Hct 32.6 L (37-47) % MCV 95.9 (80-100) fL MCH 32.6 (25-34) pg MCHC 34.0 (32-36) g/dL RDW Std Deviation 52.2 H (36.4-46.3) fL RDW Coeff of Chiara 15.1 H (11.5-14.5) % Plt Count 417 H (130-400) K/uL MPV 9.3 (7.4-10.4) fL Immature Gran % (Auto) 0.8 % Neut % (Auto) 90.0 % Lymph % (Auto) 5.2 % [place] % (Auto) 3.8 % Eos % (Auto) 0.1 % Baso % (Auto) 0.1 % Immature Gran # (Auto) 0.13 H (0.00-0.02) K/uL Neut # (Auto) 13.91 H (1.4-6.5) K/uL Lymph # (Auto) 0.81 L (1.2-3.4) K/uL [place] # (Auto) 0.59 (0.11-0.59) K/uL Eos # (Auto) 0.01 (0-0.5) K/uL Baso # (Auto) 0.02 (0-0.2) K/uL Sodium 121 L (136-145) mmol/L Potassium 4.8 (3.5-5.1) mmol/L Chloride 88 L (98-107) mmol/L Carbon Dioxide 28 (21-32) mmol/L Anion Gap 5.0 (3-11) BUN 23 H (7-18) mg/dl Creatinine 0.73 (0.6-1.2) mg/dl Est Cr Clr Drug Dosing Not Reportable Est GFR ( Amer) 85.8 Est GFR (Non-Af Amer) 74.1 BUN/Creatinine Ratio 31.4 H (10-20) Glucose 113 H (70-99) mg/dl Osmolality 259 L (280-300) mOsm/kg Calcium 8.5 (8.5-10.1) mg/dl Phosphorus 2.9 (2.5-4.9) mg/dl Magnesium 1.8 (1.8-2.4) mg/dl Total Bilirubin 0.9 (0.2-1) mg/dl AST 17 (15-37) U/L ALT 15 (12-78) U/L Alkaline Phosphatase 92 (45-117) U/L Troponin I < 0.015 (0-0.045) ng/ml Total Protein 6.2 L (6.4-8.2) gm/dl Albumin 2.9 L (3.4-5.0) gm/dl Globulin 3.3 (2.5-4.0) gm/dl Albumin/Globulin Ratio 0.9 (0.9-2) Lipase 68 L (73-393) U/L TSH 4.230 (0.300-4.500) uIu/ml Urine Color Urine Appearance (Clear) Urine pH (4.5-7.5) Ur Specific [place] (1.000-1.030) Urine Protein (Negative) Urine Glucose (UA) (Negative) Urine Ketones (Negative) Urine Blood (Negative) Urine Nitrite (Negative) Urine Bilirubin (Negative) Urine Urobilinogen (Negative) Ur Leukocyte Esterase (Negative) Urine WBC (Auto) (0-5) /hpf Urine RBC (Auto) (0-4) /hpf U Hyaline Cast (Auto) (0-5) /lpf U Epithel Cells (Auto) (0-5) /lpf Urine Bacteria (Auto) (Negative) Urine Osmolality (500-800) mOsm/kg Ur Random Sodium mmol/L 09/28/19 09/28/19 09/28/19 Range/Units 13:11 13:11 13:11 WBC (4.8-10.8) K/uL RBC (4.2-5.4) M/uL Hgb (12.0-16.0) g/dL Hct (37-47) % MCV (80-100) fL MCH (25-34) pg MCHC (32-36) g/dL RDW Std Deviation (36.4-46.3) fL RDW Coeff of Chiara (11.5-14.5) % Plt Count (130-400) K/uL MPV (7.4-10.4) fL Immature Gran % (Auto) % Neut % (Auto) % Lymph % (Auto) % [place] % (Auto) % Eos % (Auto) % Baso % (Auto) % Immature Gran # (Auto) (0.00-0.02) K/uL Neut # (Auto) (1.4-6.5) K/uL Lymph # (Auto) (1.2-3.4) K/uL [place] # (Auto) (0.11-0.59) K/uL Eos # (Auto) (0-0.5) K/uL Baso # (Auto) (0-0.2) K/uL Sodium (136-145) mmol/L Potassium (3.5-5.1) mmol/L Chloride (98-107) mmol/L Carbon Dioxide (21-32) mmol/L Anion Gap (3-11) BUN (7-18) mg/dl Creatinine (0.6-1.2) mg/dl Est Cr Clr Drug Dosing Est GFR ( Amer) Est GFR (Non-Af Amer) BUN/Creatinine Ratio (10-20) Glucose (70-99) mg/dl Osmolality (280-300) mOsm/kg Calcium (8.5-10.1) mg/dl Phosphorus (2.5-4.9) mg/dl Magnesium (1.8-2.4) mg/dl Total Bilirubin (0.2-1) mg/dl AST (15-37) U/L ALT (12-78) U/L Alkaline Phosphatase (45-117) U/L Troponin I (0-0.045) ng/ml Total Protein (6.4-8.2) gm/dl Albumin (3.4-5.0) gm/dl Globulin (2.5-4.0) gm/dl Albumin/Globulin Ratio (0.9-2) Lipase (73-393) U/L TSH (0.300-4.500) uIu/ml Urine Color Dark Yellow Urine Appearance Cloudy A (Clear) Urine pH 7.5 (4.5-7.5) Ur Specific [place] 1.018 (1.000-1.030) Urine Protein Negative (Negative) Urine Glucose (UA) Negative (Negative) Urine Ketones 1+ H (Negative) Urine Blood Negative (Negative) Urine Nitrite Negative (Negative) Urine Bilirubin Negative (Negative) Urine Urobilinogen Negative (Negative) Ur Leukocyte Esterase 1+ H (Negative) Urine WBC (Auto) 5-10 H (0-5) /hpf Urine RBC (Auto) 0-4 (0-4) /hpf U Hyaline Cast (Auto) 1-5 (0-5) /lpf U Epithel Cells (Auto) 5-10 H (0-5) /lpf Urine Bacteria (Auto) Negative (Negative) Urine Osmolality 446 L (500-800) mOsm/kg Ur Random Sodium 34 mmol/L Imaging Data Radiologist's Impression: Radiology results as stated below per my review and the radiologist's interpretation: XR chest 1V portable CLINICAL HISTORY: Chest Pain dyspnea COMPARISON STUDY: 09/13/2019 FINDINGS: The bones soft tissues and hemidiaphragms are normal. The cardiomediastinal silhouette is normal. The lungs are clear. The pulmonary vasculature is normal. IMPRESSION: Negative chest. ACT 112: Negative or not required by law. The above report was generated using voice recognition software. It may contain grammatical, syntax or spelling errors. Electronically signed by: Peter Santillan M.D. 09/28/2019 12:57 PM ECG Data Attestation: I personally reviewed and interpreted this ECG as follows: Indication: + weakness Rate (beats per minute): 84 Rhythm: + normal sinus ECG ST segments: no ST depression and no ST elevation ECG Findings: + Other (ST and T wave abnormalities laterally. QT-c 426. ) Blood Pressure Blood Pressure Findings: Elevated blood pressure Blood Pressure Disposition: further management by hospitalist TINO Narrative The patient is a pleasant 89-year-old woman who presents emergency department from [facility] after having intermittent confusion and generalized weakness with recurrence of hyponatremia per HPI. Patient is accompanied by her daughter and son who were concerned that she be too weak to go home as patient was supposed to be discharged to home today after completing her rehab following admission to [facility] following her right hip replacement after a traumatic hip fracture. The patient is fatigued appearing but no acute distress, afebrile stable vital signs. She has no focal neuro deficits. The patient's right hip incision site is clean dry and intact with soft and nontender compartments. Full range of motion intact. EKG without overt acute ischemia. Chest x-ray negative for acute process. WBC 15.4, nonspecific but increased from prior. H/H 11.1/32.6 similar to prior range of values. Platelets 417, similar to prior range of values. Sodium 121 which is decreased from 136 on 09/15. BUN/creatinine>30 consistent with the patient's clinically dry appearance. Electrolytes and LFTs unremarkable. Troponin negative/undetectable. UA with 1+ ketones and otherwise no convincing evidence of infection. Given the patient's worsening hyponatremia in the setting of her symptoms of fatigue, weakness and intermittent confusion reasonable to proceed with admission. This was discussed with the patient and her daughter at the bedside and the patient was ultimately agreeable. Case was discussed with Dr. Dillard, [facility] hospitalist, who will evaluate the patient for admission. Impression & Plan Hyponatremia, Intermittent confusion, Dehydration, History of right hip hemiarthroplasty Discharge Plan Visit Data *Final* Discharge Date/Time: 09/28/19 19:21 Chief Complaint: Illness Stated Complaint: SENT BY [facility] ED Provider: Mihai Swanson Discharge Problem: Hyponatremia, Intermittent confusion, Dehydration, History of right hip hemiarthroplasty Patient Disposition: Admitted As Inpatient Discharge Instructions Interventions: ED Discharge Assessment Last Done: 09/28/19 19:21 The scribe's documentation has been prepared under my direction and personally reviewed by me in its entirety. I confirm that the note above accurately refle cts all work, treatment, procedures, and medical decision making performed by me.
--- NOTE | 2019-09-28 17:47 | History & Physical Report ---
Date of Service September 28, 2019 Assessment & Plan (1) Hyponatremia: Secondary to very poor p.o. intake of both solute and fluid over the last 1 to 2 weeks as per her report. Sodium was 135 2 weeks ago Ketones in the urine, appears dry on examination, likely hypovolemia and hypotonic hyponatremia She is fairly asymptomatic with this sodium of 121 Urine osmolality 446, urine sodium 34, serum osmolality 259 -Admit to medical floor with telemetry -Continue normal saline at 100 mL's per hour x1 L -Check BMP every 4 hours to ensure sodium not rising too quickly --Encouraged p.o. intake-May need nutrition consult There is mention of patient gagging frequently in ER MD note, however patient denies any difficulty with swallowing to me-we will discuss further with family tomorrow and may need speech evaluation -Low appetite may be due to recent hip fracture and also with opioid use (2) Tobacco use: Patient has not smoked since 2 weeks ago before hip fracture -Continue nicotine patch (3) Leukocytosis: WBC count 15 admission, could be related to stress versus prednisone use No signs of infection-UA negative for infection and she is recently been on Macrobid for UTI-no urinary symptoms No fevers or chills, no cough or respiratory symptoms, no abdominal pain, no diarrhea or vomiting No sign of infection of the hip at this time -Follow CBC in the morning (4) Hypertension: Blood pressures stable -Continue home lisinopril 10 mg daily -Continue aspirin (5) Hyperlipidemia: -Continue statin and aspirin (6) Depression: Stable-patient reports she does not feel depressed. She was started on Cymbalta after her after she had what she feels was normal grieving response -She would like to be tapered off her Cymbalta-we will defer to PCP and continue it for now (7) Rheumatoid arthritis: For many years, on chronic prednisone -Continue home dose of prednisone 10 mg daily, no need for stress dose steroids at this time -Continue sulfasalazine (of note, med list reads sulfadiazine but pharmacy assures me she is getting sulfasalazine-error in [employer] system) (8) Hip fracture: Recent hip fracture with repair on 09/13 of the right hip Doing very well with this, no pain, no longer taking opioids -Continue aspirin 81 mg p.o. twice daily for 6 weeks as per Ortho recommendations for DVT prophylaxis -Still has dressing in place-wound care (9) DVT prophylaxis: Lovenox 40 mg SQ daily Disposition-admit to medical floor with telemetry History of Present Illness Chief Complaint: Abnormal lab test Primary Care Provider: Ben Schmidt This patient is an 89-year-old female with a history of HTN, HL, RA on chronic steroids, current smoker, kidney stones, glaucoma, and a recent right hip fracture status post ORIF who presents from [facility] after having routine labs this morning which showed a sodium of 121. She was supposed to be discharged from rehab today but instead was sent to the ER for further work-up for her hyponatremia. When I saw the patient, she reports that she has been feeling well. Denies headache or lightheadedness. Denies shortness of breath or chest pain. Denies abdominal pain or nausea. She does report that she has had very poor appetite and is really been eating very minimally the whole time she has been at the rehab facility. She also was very upset that she was on a fluid restriction while she was there-unclear why she was on this but perhaps due to her history of hyponatremia? She states that she is feeling hungry and would like to try to eat and she has not felt this way for quite some time. She denies feeling depressed. In the ER, she received 500 mL's of normal saline. She will be admitted for acute hyponatremia. Allergies Allergy/AdvReac Type Severity Reaction Status Date / Time Sulfa (Sulfonamide Allergy Unknown Rash Verified 09/28/19 13:20 Antibiotics) nicotine AdvReac Mild PATCH-SKIN Verified 09/28/19 13:20 IRRITATION shrimp AdvReac Unknown Photosensit Unverified 09/28/19 13:21 ivity Home Medications Home Medications Medication Instructions Recorded Confirmed Type Centrum Silver Women 1 tab PO QAM 07/06/18 09/28/19 History latanoprost 1 drp OPB HS 07/06/18 09/28/19 History atorvastatin 20 mg PO QAM 09/05/19 09/28/19 History cholecalciferol (vitamin D3) 50 mcg PO QAM 09/05/19 09/28/19 History [Vitamin D3] duloxetine 20 mg PO QAM 09/05/19 09/28/19 History meloxicam 15 mg PO QAM 09/05/19 09/28/19 History prednisone 10 mg PO QAM 09/05/19 09/28/19 History sulfasalazine 500 mg PO TID 09/05/19 09/28/19 History aspirin [Ecotrin Low Strength] 81 mg PO BID #60 tab 09/16/19 09/28/19 Rx bisacodyl [Laxative (bisacodyl)] 10 mg [place] DAILY PRN #30 ea 09/16/19 09/28/19 Rx nicotine 7 mg TRANSDERMAL QAM #0 ea 09/16/19 09/28/19 Rx oxycodone 5 mg PO Q12H PRN #14 tab 09/16/19 09/28/19 Rx acetaminophen [Tylenol] 325 mg PO Q6H 09/28/19 09/28/19 History docusate sodium [Colace] 100 mg PO BID 09/28/19 09/28/19 History lidocaine [Lidoderm] 2 patch TOPICAL QAM 09/28/19 09/28/19 History lisinopril 10 mg PO QAM 09/28/19 09/28/19 History melatonin 5 mg PO HS 09/28/19 09/28/19 History nitrofurantoin monohyd/m-cryst 100 mg PO BID 09/28/19 09/28/19 History polyethylene glycol 3350 [Miralax] 17 g PO QAM 09/28/19 09/28/19 History sennosides-docusate sodium 1 tab PO QDL PRN 09/28/19 09/28/19 History [Senokot-S] tramadol 50 mg PO Q6H PRN 09/28/19 09/28/19 History Past Med/Surg History Medical History Anxiety (Chronic) Depression (Chronic) Dyslipidemia (Chronic) Glaucoma (Chronic) Hearing deficit (Chronic) Hyperlipidemia (Chronic) Hypertension Kidney stones (Chronic) Osteoarthritis (Chronic) Rheumatoid arthritis (Chronic) Tobacco use Surgical History Hip fracture requiring operative repair History of cataract surgery (Resolved) left History of colonoscopy (Resolved) History of lithotripsy (Resolved) x 2 History of tooth extraction (Resolved) Nausea and vomiting after administration of anesthetic agent (Chronic) Family History Other No pertinent family history in first degree relatives Social History Preferred Language: Mohawk Communication Ability: Effective Technical Training Coordinator Required: No Beliefs That Will Affect Care: None marital status: / Current Living Situation: Alone Feels Safe at Home: Yes Safety Concerns: Feels Safe At This Time Smoking Status: Former smoker Tobacco Type: cigarettes ; Cigarettes Per Day: 1/2 ppd ; Smoking End Date: 2 weeks ago, nicotine patch on at this time per primary RN ; Second Hand Exposure: No ; Hx Alcohol Use: Yes Alcohol type: wine Hx Substance Use: No Review of Systems Review of Systems: All systems reviewed & are unremarkable except as noted in HPI & below (Denies fever/chills, no headache or vision changes, no nausea/vomiting/diarrhea, no pain in the hip, no lightheadedness, no chest pain or shortness of breath) Physical Exam Constitutional: WD/WN, vitals as above Eyes: PERRL, conjunctivae normal, anicteric sclerae ENMT: external ear and nose normal, oropharynx normal (Except mildly dry mucous membranes) Neck: trachea midline, no thyromegaly Respiratory: normal respiratory effort, lungs clear to auscultation Cardiovascular: RRR, no murmur, no edema Chest (Breasts): Chest: normal inspection of chest Gastrointestinal (Abdomen): normal bowel sounds, soft, nontender, no hepatosplenomegaly Musculoskeletal: Extremities: + extremities abnormal to inspection (Right hip with dressing in place with small amount of dried blood), no cyanosis and no clubbing Skin: no rashes, warm and dry Neurologic: moves all extremities and awake; no focal motor deficits Psychiatric: A+Ox3, euthymic affect Lymphatic: no lymphedema Results & Data Vital Signs (Past 12 Hours) Vital Signs Temp Pulse Resp BP Pulse Ox 09/28/19 17:00 20 154/72 H 90 09/28/19 16:30 17 155/74 H 91 09/28/19 16:00 20 139/64 91 09/28/19 15:30 86 24 163/71 H 90 09/28/19 15:00 85 24 149/64 H 90 09/28/19 14:30 85 19 146/65 H 91 09/28/19 14:00 84 16 138/59 L 91 09/28/19 13:30 83 18 134/58 L 91 09/28/19 13:21 85 19 134/62 94 09/28/19 12:39 93 09/28/19 11:36 36.8 C 89 18 125/71 90 Laboratory Results 09/28/19 09/28/19 09/28/19 Range/Units 20:03 13:11 13:11 WBC (4.8-10.8) K/uL RBC (4.2-5.4) M/uL Hgb (12.0-16.0) g/dL Hct (37-47) % MCV (80-100) fL MCH (25-34) pg MCHC (32-36) g/dL RDW Std Deviation (36.4-46.3) fL RDW Coeff of Chiara (11.5-14.5) % Plt Count (130-400) K/uL MPV (7.4-10.4) fL Immature Gran % (Auto) % Neut % (Auto) % Lymph % (Auto) % [place] % (Auto) % Eos % (Auto) % Baso % (Auto) % Immature Gran # (Auto) (0.00-0.02) K/uL Neut # (Auto) (1.4-6.5) K/uL Lymph # (Auto) (1.2-3.4) K/uL [place] # (Auto) (0.11-0.59) K/uL Eos # (Auto) (0-0.5) K/uL Baso # (Auto) (0-0.2) K/uL Sodium 123 L (136-145) mmol/L Potassium 4.7 (3.5-5.1) mmol/L Chloride 90 L (98-107) mmol/L Carbon Dioxide 28 (21-32) mmol/L Anion Gap 5.0 (3-11) BUN 20 H (7-18) mg/dl Creatinine 0.70 (0.6-1.2) mg/dl Est Cr Clr Drug Dosing 42.7 Est GFR ( Amer) 90.3 Est GFR (Non-Af Amer) 77.9 BUN/Creatinine Ratio 28.5 H (10-20) Glucose 110 H (70-99) mg/dl Osmolality (280-300) mOsm/kg Calcium 8.7 (8.5-10.1) mg/dl Phosphorus (2.5-4.9) mg/dl Magnesium (1.8-2.4) mg/dl Total Bilirubin (0.2-1) mg/dl AST (15-37) U/L ALT (12-78) U/L Alkaline Phosphatase (45-117) U/L Troponin I (0-0.045) ng/ml Total Protein (6.4-8.2) gm/dl Albumin (3.4-5.0) gm/dl Globulin (2.5-4.0) gm/dl Albumin/Globulin Ratio (0.9-2) Lipase (73-393) U/L TSH (0.300-4.500) uIu/ml Urine Color Dark Yellow Urine Appearance Cloudy A (Clear) Urine pH 7.5 (4.5-7.5) Ur Specific [place] 1.018 (1.000-1.030) Urine Protein Negative (Negative) Urine Glucose (UA) Negative (Negative) Urine Ketones 1+ H (Negative) Urine Blood Negative (Negative) Urine Nitrite Negative (Negative) Urine Bilirubin Negative (Negative) Urine Urobilinogen Negative (Negative) Ur Leukocyte Esterase 1+ H (Negative) Urine WBC (Auto) 5-10 H (0-5) /hpf Urine RBC (Auto) 0-4 (0-4) /hpf U Hyaline Cast (Auto) 1-5 (0-5) /lpf U Epithel Cells (Auto) 5-10 H (0-5) /lpf Urine Bacteria (Auto) Negative (Negative) Urine Osmolality (500-800) mOsm/kg Ur Random Sodium 34 mmol/L 09/28/19 09/28/19 09/28/19 Range/Units 13:11 13:11 13:11 WBC (4.8-10.8) K/uL RBC (4.2-5.4) M/uL Hgb (12.0-16.0) g/dL Hct (37-47) % MCV (80-100) fL MCH (25-34) pg MCHC (32-36) g/dL RDW Std Deviation (36.4-46.3) fL RDW Coeff of Chiara (11.5-14.5) % Plt Count (130-400) K/uL MPV (7.4-10.4) fL Immature Gran % (Auto) % Neut % (Auto) % Lymph % (Auto) % [place] % (Auto) % Eos % (Auto) % Baso % (Auto) % Immature Gran # (Auto) (0.00-0.02) K/uL Neut # (Auto) (1.4-6.5) K/uL Lymph # (Auto) (1.2-3.4) K/uL [place] # (Auto) (0.11-0.59) K/uL Eos # (Auto) (0-0.5) K/uL Baso # (Auto) (0-0.2) K/uL Sodium 121 L (136-145) mmol/L Potassium 4.8 (3.5-5.1) mmol/L Chloride 88 L (98-107) mmol/L Carbon Dioxide 28 (21-32) mmol/L Anion Gap 5.0 (3-11) BUN 23 H (7-18) mg/dl Creatinine 0.73 (0.6-1.2) mg/dl Est Cr Clr Drug Dosing Not Reportable Est GFR ( Amer) 85.8 Est GFR (Non-Af Amer) 74.1 BUN/Creatinine Ratio 31.4 H (10-20) Glucose 113 H (70-99) mg/dl Osmolality 259 L (280-300) mOsm/kg Calcium 8.5 (8.5-10.1) mg/dl Phosphorus 2.9 (2.5-4.9) mg/dl Magnesium 1.8 (1.8-2.4) mg/dl Total Bilirubin 0.9 (0.2-1) mg/dl AST 17 (15-37) U/L ALT 15 (12-78) U/L Alkaline Phosphatase 92 (45-117) U/L Troponin I < 0.015 (0-0.045) ng/ml Total Protein 6.2 L (6.4-8.2) gm/dl Albumin 2.9 L (3.4-5.0) gm/dl Globulin 3.3 (2.5-4.0) gm/dl Albumin/Globulin Ratio 0.9 (0.9-2) Lipase 68 L (73-393) U/L TSH 4.230 (0.300-4.500) uIu/ml Urine Color Urine Appearance (Clear) Urine pH (4.5-7.5) Ur Specific [place] (1.000-1.030) Urine Protein (Negative) Urine Glucose (UA) (Negative) Urine Ketones (Negative) Urine Blood (Negative) Urine Nitrite (Negative) Urine Bilirubin (Negative) Urine Urobilinogen (Negative) Ur Leukocyte Esterase (Negative) Urine WBC (Auto) (0-5) /hpf Urine RBC (Auto) (0-4) /hpf U Hyaline Cast (Auto) (0-5) /lpf U Epithel Cells (Auto) (0-5) /lpf Urine Bacteria (Auto) (Negative) Urine Osmolality 446 L (500-800) mOsm/kg Ur Random Sodium mmol/L 09/28/19 Range/Units 13:11 WBC 15.47 H (4.8-10.8) K/uL RBC 3.40 L (4.2-5.4) M/uL Hgb 11.1 L (12.0-16.0) g/dL Hct 32.6 L (37-47) % MCV 95.9 (80-100) fL MCH 32.6 (25-34) pg MCHC 34.0 (32-36) g/dL RDW Std Deviation 52.2 H (36.4-46.3) fL RDW Coeff of Chiara 15.1 H (11.5-14.5) % Plt Count 417 H (130-400) K/uL MPV 9.3 (7.4-10.4) fL Immature Gran % (Auto) 0.8 % Neut % (Auto) 90.0 % Lymph % (Auto) 5.2 % [place] % (Auto) 3.8 % Eos % (Auto) 0.1 % Baso % (Auto) 0.1 % Immature Gran # (Auto) 0.13 H (0.00-0.02) K/uL Neut # (Auto) 13.91 H (1.4-6.5) K/uL Lymph # (Auto) 0.81 L (1.2-3.4) K/uL [place] # (Auto) 0.59 (0.11-0.59) K/uL Eos # (Auto) 0.01 (0-0.5) K/uL Baso # (Auto) 0.02 (0-0.2) K/uL Sodium (136-145) mmol/L Potassium (3.5-5.1) mmol/L Chloride (98-107) mmol/L Carbon Dioxide (21-32) mmol/L Anion Gap (3-11) BUN (7-18) mg/dl Creatinine (0.6-1.2) mg/dl Est Cr Clr Drug Dosing Est GFR ( Amer) Est GFR (Non-Af Amer) BUN/Creatinine Ratio (10-20) Glucose (70-99) mg/dl Osmolality (280-300) mOsm/kg Calcium (8.5-10.1) mg/dl Phosphorus (2.5-4.9) mg/dl Magnesium (1.8-2.4) mg/dl Total Bilirubin (0.2-1) mg/dl AST (15-37) U/L ALT (12-78) U/L Alkaline Phosphatase (45-117) U/L Troponin I (0-0.045) ng/ml Total Protein (6.4-8.2) gm/dl Albumin (3.4-5.0) gm/dl Globulin (2.5-4.0) gm/dl Albumin/Globulin Ratio (0.9-2) Lipase (73-393) U/L TSH (0.300-4.500) uIu/ml Urine Color Urine Appearance (Clear) Urine pH (4.5-7.5) Ur Specific [place] (1.000-1.030) Urine Protein (Negative) Urine Glucose (UA) (Negative) Urine Ketones (Negative) Urine Blood (Negative) Urine Nitrite (Negative) Urine Bilirubin (Negative) Urine Urobilinogen (Negative) Ur Leukocyte Esterase (Negative) Urine WBC (Auto) (0-5) /hpf Urine RBC (Auto) (0-4) /hpf U Hyaline Cast (Auto) (0-5) /lpf U Epithel Cells (Auto) (0-5) /lpf Urine Bacteria (Auto) (Negative) Urine Osmolality (500-800) mOsm/kg Ur Random Sodium mmol/L Diagnostic Findings Chest x-ray image personally reviewed by me and agree with the following report: XR chest 1V portable CLINICAL HISTORY: Chest Pain dyspnea COMPARISON STUDY: 09/13/2019 FINDINGS: The bones soft tissues and hemidiaphragms are normal. The cardiomediastinal silhouette is normal. The lungs are clear. The pulmonary vasculature is normal. IMPRESSION: Negative chest. ECG Additional Comments: ECG with normal sinus rhythm, rate 84, old inferior infarct, diffuse nonspecific ST abnormality Code Status & VTE Plan Code Status Full code, however does not want prolonged life support if has a poor prognosis for recovery VTE Prophylaxis Plan VTE Prophylaxis will be ordered: Yes PG Care Time/CCT Total # of Minutes Spent Total Time Spent with Patient: Total time spent is greater than 50% in coordination of care (as documented) at patient's floor/unit and/or counseling patient: (1) Hip fracture Encounter type: initial encounter Fracture type: closed Laterality: right Qualified Code(s): S72.001A - Fracture of unspecified part of neck of right femur, initial encounter for closed fracture (2) Leukocytosis Leukocytosis type: unspecified Qualified Code(s): D72.829 - Elevated white blood cell count, unspecified (3) Hypertension Hypertension type: essential hypertension Qualified Code(s): I10 - Essential (primary) hypertension (4) Hyperlipidemia Hyperlipidemia type: unspecified Qualified Code(s): E78.5 - Hyperlipidemia, unspecified (5) Depression Depression Type: major depressive disorder Major depression recurrence: recurrent Active/Remission status: remission status unspecified Qualified Code(s): F33.9 - Major depressive disorder, recurrent, unspecified (6) Rheumatoid arthritis Rheumatoid arthritis location: unspecified site Rheumatoid factor presence: unspecified presence Qualified Code(s): M06.9 - Rheumatoid arthritis, unspecified
[2019-09-28] MEDS ORDERED: DOCUSATE SODIUM/SENNA 50/8.6MG TAB PO PRN (19:53)
[2019-09-28] MEDS ORDERED: SODIUM CHLORIDE 0.9% 1000ML 1,000 ML IV SCH (20:30)
[2019-09-28 20:40] LABS: BUN Creatinine Ratio 28.5 (10-20); Calcium 8.7 mg/dl (8.5-10.1); Creatinine Clr Calc Pharmacy 42.7 ml/min; Est GFR (African American) 90.3; Est GFR (Non-African American) 77.9; Potassium 4.7 mmol/L (3.5-5.1)
[2019-09-28] MEDS: sulfaSALAzine 500 MG TABEC PO SCH (21:37)
[2019-09-28] MEDS: ENOXAPARIN INJ 40 MG/0.4 ML SYR SQ SCH (21:38)
[2019-09-28] MEDS: ASPIRIN 81 MG ECTAB PO SCH (21:39)
[2019-09-28] MEDS: DOCUSATE SODIUM 100 MG CAP PO SCH (21:40)
[2019-09-28] MEDS: ACETAMINOPHEN 325 MG TAB PO SCH (21:41)
[2019-09-28] MEDS: LATANOPROST 0.005% OP SOLN 2.5 ML BTL OPB SCH (21:43)
[2019-09-28 23:30] LABS: Calcium 8.4 mg/dl (8.5-10.1); Creatinine Clr Calc Pharmacy 35.6 ml/min; Est GFR (African American) 72.4; Est GFR (Non-African American) 62.5; Potassium 4.5 mmol/L (3.5-5.1)
[2019-09-29] MEDS: ACETAMINOPHEN 325 MG TAB PO SCH ×4 (02:51→20:25)
[2019-09-29 05:52] LABS: Basophils # (auto) 0.05 K/uL (0-0.2); Basophils % (auto) 0.4 %; Eosinophils # (auto) 0.04 K/uL (0-0.5); Eosinophils % (auto) 0.3 %; Hematocrit (blood only) 30.5 % (37-47); Hemoglobin 10.3 g/dL (12.0-16.0); Immature Granulocytes # (auto) 0.18 K/uL (0.00-0.02); Immature Granulocytes % (auto) 1.5 %; Lymphocytes # (auto) 2.07 K/uL (1.2-3.4); Lymphocytes % (auto) 16.7 %; Mean Corpuscular Hemoglobin 32.7 pg (25-34); Mean Corpuscular Hgb Conc 33.8 g/dL (32-36); Mean Corpuscular Volume 96.8 fL (80-100); Mean Platelet Volume 8.9 fL (7.4-10.4); Monocytes # (auto) 1.04 K/uL (0.11-0.59); Monocytes % (auto) 8.4 %; Neutrophils # (auto) 8.99 K/uL (1.4-6.5); Neutrophils % (auto) 72.7 %; Platelet Count 441 K/uL (130-400); RDW Coefficient of Variation 15.2 % (11.5-14.5); RDW Standard Deviation 52.8 fL (36.4-46.3); Red Blood Count 3.15 M/uL (4.2-5.4); White Blood Count 12.37 K/uL (4.8-10.8)
[2019-09-29 06:29] LABS: BUN Creatinine Ratio 27.8 (10-20); Calcium 8.1 mg/dl (8.5-10.1); Creatinine Clr Calc Pharmacy 42.7 ml/min; Est GFR (African American) 90.3; Est GFR (Non-African American) 77.9; Potassium 4.6 mmol/L (3.5-5.1)
[2019-09-29] MEDS: lisinopriL 10 MG TAB PO SCH (08:44)
[2019-09-29] MEDS: ATORVASTATIN 20 MG TAB PO SCH (08:44)
[2019-09-29] MEDS: DULOXETINE HCL 20 MG CAP PO SCH (08:44)
[2019-09-29] MEDS: CEROVITE ADV FORMULA TAB PO SCH (08:45)
[2019-09-29] MEDS: ASPIRIN 81 MG ECTAB PO SCH ×2 (08:45→20:27)
[2019-09-29] MEDS: CHOLECALCIFEROL 1,000 UNITS TAB PO SCH (08:45)
[2019-09-29] MEDS: sulfaSALAzine 500 MG TABEC PO SCH ×3 (08:45→20:27)
[2019-09-29] MEDS: LIDOCAINE 5% 1 PATCH TD SCH (08:46)
[2019-09-29] MEDS: POLYETHYLENE (MIRALAX) 17 GM PACK PO SCH (08:47)
[2019-09-29] MEDS: predniSONE 10 MG TABLET PO SCH (08:55)
[2019-09-29] MEDS ORDERED: NICOTINE 14 MG/24 HR PATCH TD SCH (09:00)
[2019-09-29] MEDS: NICOTINE 7 MG/24 HR TDSY TD SCH (10:39)
[2019-09-29] MEDS: DOCUSATE SODIUM 100 MG CAP PO SCH ×2 (10:39→20:26)
[2019-09-29] MEDS: SODIUM CHLORIDE 0.9% 1000ML 1,000 ML IV SCH ×2 (10:43→18:52)
--- NOTE | 2019-09-29 13:42 | Orthopedic Progress Note ---
Date of Service September 29, 2019 Assessment & Plan (1) Hyponatremia: Per medicine Present on Admission?: Yes (2) History of hemiarthroplasty of hip: Dr Santana aware patient in the hospital. S/P right hip hemiarthroplasty 09-14-19. Continue with medical management. Continue with pain control per medicine. Continue WBAT R LE with walker. Continue with DVT prophylaxis ASA 81mg bid x 6wks post-op and TEDS B LE x 3wks post-op. Incision was checked. Zip line was removed and steris were applied with adhesive followed by 4x4 and tegaderm. Dressings can remain on until patient is discharged. They can then be removed on return home. However, if draining thru 4x4s, nursing ok to redress wound. Would recommend HHPT upon D/C. Patient is scheduled with Dr Santana for her 6wk post-op visit on 11-02-19 at 2pm. Xrays will be done at that visit. With any questions, please call [phone]. Present on Admission?: Yes Subjective Patient readmitted to hospital from [facility] for hyponatremia. Hx of r hip hemiarthroplasty by Dr Santana on 09-14-19. Son contacted office because she was scheduled to see me today for a wound check. Saw in hospital instead. Patient states she is anxious to go home. Regarding her hip, she has no complaints. She did mention family noted some slight drainage on zip line/incision a few days ago. Pain is controlled. Tolerating regular diet. She was in restroom with nurse when I arrived and walking with use of a walker. Physical Exam Physical Exam: Patient alert. Ambulating with CG and use of walker. Able to stand with CG. Right hip dressing removed. Scant drainage noted to center of dressing. No foul odor or pus. Zip line was intact. No significant redness or warmth. No skin breakdown. Lidoderm patches on each side of incision noted. Zip line removed easily. Incision healing nicely. One area in to mid incision with scant drainage noted. No signs of infection. Patient had no pain with log rolling of right hip. Able to maneuver in bed with min A. NV right LE. 5/5 R EHL, TA, gastroc strength. Palpable DP and PT pulses. Sensation intact to light touch. Calves soft and nontender. Results & Data Vital Signs (Past 12 Hours) Vital Signs Temp Pulse Pulse Pulse Resp BP BP 09/29/19 11:24 36.8 C 79 18 159/67 H 09/29/19 07:31 36.6 C 83 18 184/68 H 09/29/19 07:12 79 09/29/19 04:20 36.8 C 83 16 173/74 H Pulse Ox 09/29/19 11:24 90 09/29/19 07:31 93 09/29/19 07:12 09/29/19 04:20 91 Laboratory Results 09/29/19 09/29/19 09/28/19 Range/Units 05:32 05:32 23:03 WBC 12.37 H (4.8-10.8) K/uL RBC 3.15 L (4.2-5.4) M/uL Hgb 10.3 L (12.0-16.0) g/dL Hct 30.5 L (37-47) % MCV 96.8 (80-100) fL MCH 32.7 (25-34) pg MCHC 33.8 (32-36) g/dL RDW Std Deviation 52.8 H (36.4-46.3) fL RDW Coeff of Chiara 15.2 H (11.5-14.5) % Plt Count 441 H (130-400) K/uL MPV 8.9 (7.4-10.4) fL Immature Gran % (Auto) 1.5 % Neut % (Auto) 72.7 % Lymph % (Auto) 16.7 % [place] % (Auto) 8.4 % Eos % (Auto) 0.3 % Baso % (Auto) 0.4 % Immature Gran # (Auto) 0.18 H (0.00-0.02) K/uL Neut # (Auto) 8.99 H (1.4-6.5) K/uL Lymph # (Auto) 2.07 (1.2-3.4) K/uL [place] # (Auto) 1.04 H (0.11-0.59) K/uL Eos # (Auto) 0.04 (0-0.5) K/uL Baso # (Auto) 0.05 (0-0.2) K/uL Sodium 126 L 125 L (136-145) mmol/L Potassium 4.6 4.5 (3.5-5.1) mmol/L Chloride 94 L 92 L (98-107) mmol/L Carbon Dioxide 28 28 (21-32) mmol/L Anion Gap 4.0 5.0 (3-11) BUN 20 H 25 H (7-18) mg/dl Creatinine 0.70 0.84 (0.6-1.2) mg/dl Est Cr Clr Drug Dosing 42.7 35.6 Est GFR ( Amer) 90.3 72.4 Est GFR (Non-Af Amer) 77.9 62.5 BUN/Creatinine Ratio 27.8 H 30.0 H (10-20) Glucose 90 101 H (70-99) mg/dl Osmolality (280-300) mOsm/kg Calcium 8.1 L 8.4 L (8.5-10.1) mg/dl Phosphorus (2.5-4.9) mg/dl Magnesium (1.8-2.4) mg/dl Total Bilirubin (0.2-1) mg/dl AST (15-37) U/L ALT (12-78) U/L Alkaline Phosphatase (45-117) U/L Troponin I (0-0.045) ng/ml Total Protein (6.4-8.2) gm/dl Albumin (3.4-5.0) gm/dl Globulin (2.5-4.0) gm/dl Albumin/Globulin Ratio (0.9-2) Lipase (73-393) U/L TSH (0.300-4.500) uIu/ml Urine Osmolality (500-800) mOsm/kg Ur Random Sodium mmol/L Nasal Screen MRSA (PCR) (Negative) 09/28/19 09/28/19 09/28/19 Range/Units 22:20 20:03 13:11 WBC (4.8-10.8) K/uL RBC (4.2-5.4) M/uL Hgb (12.0-16.0) g/dL Hct (37-47) % MCV (80-100) fL MCH (25-34) pg MCHC (32-36) g/dL RDW Std Deviation (36.4-46.3) fL RDW Coeff of Chiara (11.5-14.5) % Plt Count (130-400) K/uL MPV (7.4-10.4) fL Immature Gran % (Auto) % Neut % (Auto) % Lymph % (Auto) % [place] % (Auto) % Eos % (Auto) % Baso % (Auto) % Immature Gran # (Auto) (0.00-0.02) K/uL Neut # (Auto) (1.4-6.5) K/uL Lymph # (Auto) (1.2-3.4) K/uL [place] # (Auto) (0.11-0.59) K/uL Eos # (Auto) (0-0.5) K/uL Baso # (Auto) (0-0.2) K/uL Sodium 123 L (136-145) mmol/L Potassium 4.7 (3.5-5.1) mmol/L Chloride 90 L (98-107) mmol/L Carbon Dioxide 28 (21-32) mmol/L Anion Gap 5.0 (3-11) BUN 20 H (7-18) mg/dl Creatinine 0.70 (0.6-1.2) mg/dl Est Cr Clr Drug Dosing 42.7 Est GFR ( Amer) 90.3 Est GFR (Non-Af Amer) 77.9 BUN/Creatinine Ratio 28.5 H (10-20) Glucose 110 H (70-99) mg/dl Osmolality (280-300) mOsm/kg Calcium 8.7 (8.5-10.1) mg/dl Phosphorus (2.5-4.9) mg/dl Magnesium (1.8-2.4) mg/dl Total Bilirubin (0.2-1) mg/dl AST (15-37) U/L ALT (12-78) U/L Alkaline Phosphatase (45-117) U/L Troponin I (0-0.045) ng/ml Total Protein (6.4-8.2) gm/dl Albumin (3.4-5.0) gm/dl Globulin (2.5-4.0) gm/dl Albumin/Globulin Ratio (0.9-2) Lipase (73-393) U/L TSH (0.300-4.500) uIu/ml Urine Osmolality (500-800) mOsm/kg Ur Random Sodium 34 mmol/L Nasal Screen MRSA (PCR) Negative (Negative) 09/28/19 09/28/19 09/28/19 Range/Units 13:11 13:11 13:11 WBC (4.8-10.8) K/uL RBC (4.2-5.4) M/uL Hgb (12.0-16.0) g/dL Hct (37-47) % MCV (80-100) fL MCH (25-34) pg MCHC (32-36) g/dL RDW Std Deviation (36.4-46.3) fL RDW Coeff of Chiara (11.5-14.5) % Plt Count (130-400) K/uL MPV (7.4-10.4) fL Immature Gran % (Auto) % Neut % (Auto) % Lymph % (Auto) % [place] % (Auto) % Eos % (Auto) % Baso % (Auto) % Immature Gran # (Auto) (0.00-0.02) K/uL Neut # (Auto) (1.4-6.5) K/uL Lymph # (Auto) (1.2-3.4) K/uL [place] # (Auto) (0.11-0.59) K/uL Eos # (Auto) (0-0.5) K/uL Baso # (Auto) (0-0.2) K/uL Sodium 121 L (136-145) mmol/L Potassium 4.8 (3.5-5.1) mmol/L Chloride 88 L (98-107) mmol/L Carbon Dioxide 28 (21-32) mmol/L Anion Gap 5.0 (3-11) BUN 23 H (7-18) mg/dl Creatinine 0.73 (0.6-1.2) mg/dl Est Cr Clr Drug Dosing Not Reportable Est GFR ( Amer) 85.8 Est GFR (Non-Af Amer) 74.1 BUN/Creatinine Ratio 31.4 H (10-20) Glucose 113 H (70-99) mg/dl Osmolality 259 L (280-300) mOsm/kg Calcium 8.5 (8.5-10.1) mg/dl Phosphorus 2.9 (2.5-4.9) mg/dl Magnesium 1.8 (1.8-2.4) mg/dl Total Bilirubin 0.9 (0.2-1) mg/dl AST 17 (15-37) U/L ALT 15 (12-78) U/L Alkaline Phosphatase 92 (45-117) U/L Troponin I < 0.015 (0-0.045) ng/ml Total Protein 6.2 L (6.4-8.2) gm/dl Albumin 2.9 L (3.4-5.0) gm/dl Globulin 3.3 (2.5-4.0) gm/dl Albumin/Globulin Ratio 0.9 (0.9-2) Lipase 68 L (73-393) U/L TSH 4.230 (0.300-4.500) uIu/ml Urine Osmolality 446 L (500-800) mOsm/kg Ur Random Sodium mmol/L Nasal Screen MRSA (PCR) (Negative)
[2019-09-29 15:30] LABS: BUN Creatinine Ratio 28.5 (10-20); Creatinine Clr Calc Pharmacy 45.3 ml/min; Est GFR (African American) 92.1; Est GFR (Non-African American) 79.4; Potassium 4.6 mmol/L (3.5-5.1)
--- NOTE | 2019-09-29 18:34 | Hospitalist Progress Note ---
Date of Service September 29, 2019 Assessment & Plan (1) Hyponatremia: Upon admission, thought to be hypovolemic secondary to very poor p.o. intake of both solute and fluid over the last 1 to 2 weeks as per her report. Sodium was 135 two weeks ago at the time of discharge after her hip surgery. With ketones in the urine, appeared dry on examination, likely hypovolemia and hypotonic hyponatremia She was fairly asymptomatic with this sodium of 121 except very poor appetite Urine osmolality 446, urine sodium 34, serum osmolality 259 Was given 2 L of normal saline over 24 hours and had gradual improvement initially in sodium to 126, but for some reason is back down to 124 this afternoon. Urine osmolality still remains elevated in the 400s and has not yet improved. She is just starting to take in better p.o. intake today and does seem to be approaching euvolemia TSH normal, no signs of adrenal insufficiency -DC IV fluids -Start salt tablets 1 g p.o. twice daily this evening -Continue to follow BMP again in the morning along with urine osmolality -Encouraged continued good p.o. intake There is mention of patient gagging frequently in ER MD note, however patient denies any difficulty with swallowing to me-seen by speech therapy here and patient denied any issues with this -Low appetite may be due to recent hip fracture and also with opioid use-now resolving (2) Tobacco use: Patient has not smoked since 2 weeks ago before hip fracture -Continue nicotine patch (3) Leukocytosis: WBC count 15 admission, could be related to stress versus prednisone use. However, leukocytosis only slightly improved today to 12, remains afebrile UA negative for infection and she is recently been on Macrobid for UTI-no urinary symptoms No fevers or chills, no cough or respiratory symptoms, no abdominal pain, no diarrhea or vomiting No sign of infection of the hip at this time but does have some serous drainage from the hip Found a sacral decubitus ulcer today with some mild surrounding erythema and scant drainage-could be infected -Check wound culture of the sacral decub -Start Keflex -Follow CBC in the morning (4) Hypertension: Blood pressures stable -Continue home lisinopril 10 mg daily -Continue aspirin (5) Hyperlipidemia: -Continue statin and aspirin (6) Depression: Stable-patient reports she does not feel depressed. She was started on Cymbalta after her after she had what she feels was normal grieving response -She would like to be tapered off her Cymbalta-we will defer to PCP and continue it for now (7) Rheumatoid arthritis: For many years, on chronic prednisone -Continue home dose of prednisone 10 mg daily, no need for stress dose steroids at this time -Continue sulfasalazine (of note, med list reads sulfadiazine but pharmacy assures me she is getting sulfasalazine-error in [employer] system) (8) Hip fracture: Recent hip fracture with repair on 09/13 of the right hip Doing very well with this, no pain, no longer taking opioids -Continue aspirin 81 mg p.o. twice daily for 6 weeks and PAMELA hose x3 weeks as per Ortho recommendations for DVT prophylaxis -Orthopedics saw her today in the hospital and removed her zip line dressing and replaced it with 4 x 4's and adhesive tape-to be changed as needed for drainage -Has follow-up scheduled with Dr Santana for her 6wk post-op visit on 11-02-19 at 2pm. Xrays will be done at that visit -Continue PT/OT-will be with home health after discharge (9) Severe protein-calorie malnutrition: Severe protein-calorie malnutrition -Nutrition consult appreciated-starting supplements -Encouraged continued p.o. intake (10) Sacral decubitus ulcer, stage II: With approximately 2 X1 centimeter full skin thickness open wound with surrounding erythema and scant drainage on sacrum -Keep covered with OPTi foam -Consult wound nurse -Checking wound culture and starting Keflex as above Offloading pressure (11) DVT prophylaxis: Lovenox 40 mg SQ daily, aspirin 81 mg p.o. twice daily Disposition-continued telemetry PT/OT evaluations appreciated, would go home with home health from here -Hopeful discharged home the next 1 to 2 days if sodium continues to improve Subjective Patient reports she is feeling much better today. More energetic, her appetite is greatly improved and she ate 100% of her lunch and dinner. She is making plenty of urine. Is moving her bowels regularly. Denies nausea or abdominal pain. Denies chest pain or shortness of breath. Telemetry with normal sinus rhythm with rates in the 70s to 80s Review of Systems Review of Systems: All systems reviewed & are unremarkable except as noted in HPI & below Physical Exam Constitutional: WD/WN, vitals as above Eyes: + anicteric sclerae Neck: trachea midline, no thyromegaly Respiratory: normal respiratory effort, lungs clear to auscultation Cardiovascular: RRR, no murmur, no edema Chest (Breasts): Chest: normal inspection of chest Gastrointestinal (Abdomen): normal bowel sounds, soft, nontender, no hepatosplenomegaly Musculoskeletal: Extremities: + extremities abnormal to inspection (Right hip with dressing soaked with serous fluid and removed, wound looks nice, no surrounding erythema, Steri-Strips in place), no cyanosis and no clubbing Skin: + wound (Sacral wound 2 x 1 cm full skin thickness with minimal white to yellow exudate and serous drainage with mild surrounding erythema) Neurologic: moves all extremities and awake; no focal motor deficits Psychiatric: A+Ox3, euthymic affect Lymphatic: no lymphedema Results & Data Vital Signs (Past 12 Hours) Vital Signs Temp Pulse Pulse Resp BP BP Pulse Ox 09/29/19 15:30 36.9 C 81 18 119/56 L 92 09/29/19 15:24 81 09/29/19 11:24 36.8 C 79 18 159/67 H 90 09/29/19 07:31 36.6 C 83 18 184/68 H 93 09/29/19 07:12 79 Laboratory Results 09/29/19 09/29/19 09/29/19 Range/Units 18:30 14:49 05:32 WBC (4.8-10.8) K/uL RBC (4.2-5.4) M/uL Hgb (12.0-16.0) g/dL Hct (37-47) % MCV (80-100) fL MCH (25-34) pg MCHC (32-36) g/dL RDW Std Deviation (36.4-46.3) fL RDW Coeff of Chiara (11.5-14.5) % Plt Count (130-400) K/uL MPV (7.4-10.4) fL Immature Gran % (Auto) % Neut % (Auto) % Lymph % (Auto) % Darke % (Auto) % Eos % (Auto) % Baso % (Auto) % Immature Gran # (Auto) (0.00-0.02) K/uL Neut # (Auto) (1.4-6.5) K/uL Lymph # (Auto) (1.2-3.4) K/uL Darke # (Auto) (0.11-0.59) K/uL Eos # (Auto) (0-0.5) K/uL Baso # (Auto) (0-0.2) K/uL Sodium 124 L 126 L (136-145) mmol/L Potassium 4.6 4.6 (3.5-5.1) mmol/L Chloride 94 L 94 L (98-107) mmol/L Carbon Dioxide 26 28 (21-32) mmol/L Anion Gap 4.0 4.0 (3-11) BUN 19 H 20 H (7-18) mg/dl Creatinine 0.66 0.70 (0.6-1.2) mg/dl Est Cr Clr Drug Dosing 45.3 42.7 ml/min Est GFR ( Amer) 92.1 90.3 Est GFR (Non-Af Amer) 79.4 77.9 BUN/Creatinine Ratio 28.5 H 27.8 H (10-20) Glucose 161 H 90 (70-99) mg/dl Calcium 8.0 L 8.1 L (8.5-10.1) mg/dl Urine Osmolality 488 L (500-800) mOsm/kg Nasal Screen MRSA (PCR) (Negative) 09/29/19 09/28/19 09/28/19 Range/Units 05:32 23:03 22:20 WBC 12.37 H (4.8-10.8) K/uL RBC 3.15 L (4.2-5.4) M/uL Hgb 10.3 L (12.0-16.0) g/dL Hct 30.5 L (37-47) % MCV 96.8 (80-100) fL MCH 32.7 (25-34) pg MCHC 33.8 (32-36) g/dL RDW Std Deviation 52.8 H (36.4-46.3) fL RDW Coeff of Chiara 15.2 H (11.5-14.5) % Plt Count 441 H (130-400) K/uL MPV 8.9 (7.4-10.4) fL Immature Gran % (Auto) 1.5 % Neut % (Auto) 72.7 % Lymph % (Auto) 16.7 % Darke % (Auto) 8.4 % Eos % (Auto) 0.3 % Baso % (Auto) 0.4 % Immature Gran # (Auto) 0.18 H (0.00-0.02) K/uL Neut # (Auto) 8.99 H (1.4-6.5) K/uL Lymph # (Auto) 2.07 (1.2-3.4) K/uL Darke # (Auto) 1.04 H (0.11-0.59) K/uL Eos # (Auto) 0.04 (0-0.5) K/uL Baso # (Auto) 0.05 (0-0.2) K/uL Sodium 125 L (136-145) mmol/L Potassium 4.5 (3.5-5.1) mmol/L Chloride 92 L (98-107) mmol/L Carbon Dioxide 28 (21-32) mmol/L Anion Gap 5.0 (3-11) BUN 25 H (7-18) mg/dl Creatinine 0.84 (0.6-1.2) mg/dl Est Cr Clr Drug Dosing 35.6 ml/min Est GFR ( Amer) 72.4 Est GFR (Non-Af Amer) 62.5 BUN/Creatinine Ratio 30.0 H (10-20) Glucose 101 H (70-99) mg/dl Calcium 8.4 L (8.5-10.1) mg/dl Urine Osmolality (500-800) mOsm/kg Nasal Screen MRSA (PCR) Negative (Negative) PG Care Time/CCT Total # of Minutes Spent Total Time Spent with Patient: Total time spent is greater than 50% in coordination of care (as documented) at patient's floor/unit and/or counseling patient: (1) Rheumatoid arthritis Rheumatoid arthritis location: unspecified site Rheumatoid factor presence: unspecified presence Qualified Code(s): M06.9 - Rheumatoid arthritis, unspecif ied (2) Hip fracture Encounter type: initial encounter Fracture type: closed Laterality: right Qualified Code(s): S72.001A - Fracture of unspecified part of neck of right fe mur, initial encounter for closed fracture (3) Depression Active/Remission status: remission status unspecified Depression Type: major depressive disorder Major depression recurrence: recurrent Qualified Code(s): F33.9 - Major depressive disorder, recurrent, unspecified (4) Hyperlipidemia Hyperlipidemia type: unspecified Qualified Code(s): E78.5 - Hyperlipidemia, unspecified (5) Leukocytosis Leukocytosis type: unspecified Qualified Code(s): D72.829 - Elevated white blood cell count, unspecified (6) Hypertension Hypertension type: essential hypertension Qualified Code(s): I10 - Essential (primary) hypertension
[2019-09-29] MEDS: SODIUM CHLORIDE 1 GM TABLET PO SCH (20:25)
[2019-09-29] MEDS: cephALEXin 500 MG CAP PO SCH (20:25)
[2019-09-29] MEDS: ENOXAPARIN INJ 40 MG/0.4 ML SYR SQ SCH (20:26)
[2019-09-29] MEDS: LATANOPROST 0.005% OP SOLN 2.5 ML BTL OPB SCH (20:26)
[2019-09-30] MEDS: ACETAMINOPHEN 325 MG TAB PO SCH ×4 (02:36→19:58)
[2019-09-30 06:30] LABS: Basophils # (auto) 0.07 K/uL (0-0.2); Basophils % (auto) 0.6 %; Eosinophils # (auto) 0.05 K/uL (0-0.5); Eosinophils % (auto) 0.4 %; Hematocrit (blood only) 29.6 % (37-47); Hemoglobin 10.1 g/dL (12.0-16.0); Immature Granulocytes # (auto) 0.14 K/uL (0.00-0.02); Immature Granulocytes % (auto) 1.2 %; Lymphocytes # (auto) 1.83 K/uL (1.2-3.4); Lymphocytes % (auto) 15.1 %; Mean Corpuscular Hemoglobin 33.2 pg (25-34); Mean Corpuscular Hgb Conc 34.1 g/dL (32-36); Mean Corpuscular Volume 97.4 fL (80-100); Mean Platelet Volume 8.9 fL (7.4-10.4); Monocytes # (auto) 1.11 K/uL (0.11-0.59); Monocytes % (auto) 9.1 %; Neutrophils # (auto) 8.94 K/uL (1.4-6.5); Neutrophils % (auto) 73.6 %; Platelet Count 430 K/uL (130-400); RDW Coefficient of Variation 15.3 % (11.5-14.5); RDW Standard Deviation 53.4 fL (36.4-46.3); Red Blood Count 3.04 M/uL (4.2-5.4); White Blood Count 12.14 K/uL (4.8-10.8)
[2019-09-30 06:57] LABS: BUN Creatinine Ratio 22.1 (10-20); Calcium 8.2 mg/dl (8.5-10.1); Creatinine Clr Calc Pharmacy 49.8 ml/min; Potassium 4.3 mmol/L (3.5-5.1)
[2019-09-30] MEDS: CHOLECALCIFEROL 1,000 UNITS TAB PO SCH (08:08)
[2019-09-30] MEDS: sulfaSALAzine 500 MG TABEC PO SCH ×3 (08:08→19:58)
[2019-09-30] MEDS: ASPIRIN 81 MG ECTAB PO SCH ×2 (08:08→19:58)
[2019-09-30] MEDS: ATORVASTATIN 20 MG TAB PO SCH (08:08)
[2019-09-30] MEDS: CEROVITE ADV FORMULA TAB PO SCH (08:09)
[2019-09-30] MEDS: lisinopriL 10 MG TAB PO SCH (08:09)
[2019-09-30] MEDS: POLYETHYLENE (MIRALAX) 17 GM PACK PO SCH (08:09)
[2019-09-30] MEDS: DULOXETINE HCL 20 MG CAP PO SCH (08:09)
[2019-09-30] MEDS: predniSONE 10 MG TABLET PO SCH (08:09)
[2019-09-30] MEDS: cephALEXin 500 MG CAP PO SCH ×2 (08:10→19:58)
[2019-09-30] MEDS: SODIUM CHLORIDE 1 GM TABLET PO SCH ×2 (08:10→19:58)
[2019-09-30] MEDS: NICOTINE 7 MG/24 HR TDSY TD SCH (08:11)
[2019-09-30] MEDS: LIDOCAINE 5% 1 PATCH TD SCH (08:11)
[2019-09-30] MEDS: DOCUSATE SODIUM 100 MG CAP PO SCH ×2 (08:13→19:58)
[2019-09-30 15:28] LABS: Calcium 8.6 mg/dl (8.5-10.1); Creatinine Clr Calc Pharmacy 39.4 ml/min; Est GFR (African American) 81.7; Est GFR (Non-African American) 70.5
--- NOTE | 2019-09-30 16:02 | Hospitalist Progress Note ---
Date of Service September 30, 2019 Assessment & Plan (1) Hyponatremia: Upon admission, thought to be hypovolemic secondary to very poor p.o. intake of both solute and fluid over the last 1 to 2 weeks as per her report. Sodium was 135 two weeks ago at the time of discharge after her hip surgery. With ketones in the urine, appeared dry on examination, likely hypovolemia and hypotonic hyponatremia, however with continued normal saline, her sodium dropped back down a little bit. Now on fluid restriction at 1500 with salt tablets provided 1 g p.o. 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 She was fairly asymptomatic with this sodium of 121 upon admission except very poor appetite Urine osmolality 446, urine sodium 34, serum osmolality 259 Urine osmolality is increasing which does not seem consistent with hypovolemic hyponatremia any further after she has been hydrated would expect urine osmolality to decrease Is now euvolemic TSH normal, no signs of adrenal insufficiency -Have since discontinued IV fluids -Continue to encourage p.o. intake -Continue salt tablets 1 g p.o. twice daily and fluid restrict to 1500 mL's per day -Continue to follow BMP again in the morning along with urine osmolality -If hyponatremia persists, consider work-up for pulmonary malignancy given history of smoking There is mention of patient gagging frequently in ER MD note, however patient denies any difficulty with swallowing to me-seen by speech therapy here and patient denied any issues with this -Low appetite may be due to recent hip fracture and also with opioid use-now resolving (2) Tobacco use: Patient has not smoked since 2 weeks ago before hip fracture -Continue nicotine patch (3) Leukocytosis: WBC count 15 admission, could be related to stress versus prednisone use, versus infected sacral wound as below Remains afebrile but WBC count still elevated at 12 today, platelets also elevated indicative of acute phase reactant UA negative for infection and she is recently been on Macrobid for UTI-no urinary symptoms No fevers or chills, no cough or respiratory symptoms, no abdominal pain, no diarrhea or vomiting No sign of infection of the hip at this time but does have some serous drainage from the hip With an unstageable sacral decubitus ulcer with some mild surrounding erythema and scant drainage-seems to be infected -Awaiting collection of wound culture of the sacral decub -Continue Keflex -Follow CBC in the morning (4) Hypertension: Blood pressures stable to elevated -Continue home lisinopril 10 mg daily -Continue aspirin (5) Hyperlipidemia: -Continue statin and aspirin (6) Depression: Stable-patient reports she does not feel depressed. She was started on Cymbalta after her after she had what she feels was normal grieving response -She would like to be tapered off her Cymbalta-we will defer to PCP and continue it for now (7) Rheumatoid arthritis: For many years, on chronic prednisone -Continue home dose of prednisone 10 mg daily, no need for stress dose steroids at this time -Continue sulfasalazine (of note, med list reads sulfadiazine but pharmacy assures me she is getting sulfasalazine-error in [employer] system) (8) Hip fracture: Recent hip fracture with repair on 09/13 of the right hip Doing very well with this, no pain, no longer taking opioids -Continue aspirin 81 mg p.o. twice daily for 6 weeks and PAMELA hose x3 weeks as per Ortho recommendations for DVT prophylaxis -Orthopedics saw her here in the hospital and removed her zip line dressing and replaced it with 4 x 4's and adhesive tape-to be changed as needed for drainage -Has follow-up scheduled with Dr Santana for her 6wk post-op visit on 11-02-19 at 2pm. Xrays will be done at that visit -Continue PT/OT-will be with home health after discharge (9) Severe protein-calorie malnutrition: Severe protein-calorie malnutrition -Nutrition consult appreciated-starting supplements -Encouraged continued p.o. intake (10) Decubitus ulcer of sacral region, unstageable: With approximately 2 X1 centimeter full skin thickness open wound with surrounding erythema and scant drainage on sacrum -Keep covered with OPTi foam -Consult wound nurse appreciated-May need debridement with wound care MD if still here on Thursday -Checking wound culture and continues on Keflex as above Offloading pressure (11) Urinary incontinence: Chronic, follows with urology Was supposed to be on tamsulosin as per urology visit notes in June 2019- patient thinks she discontinued it but is not sure why -Restart tamsulosin 0.4 mg daily here -Follow-up with urology as an outpatient (12) DVT prophylaxis: Lovenox 40 mg SQ daily, aspirin 81 mg p.o. twice daily Disposition-continued telemetry PT/OT evaluations appreciated, would go home with home health from here -Hopeful discharged home the next 1 to 2 days if sodium continues to improve and signs of infection improve Subjective Feeling a little bit worse than yesterday but still better than upon admission. Is eating fairly well. Continues to complain of chronic urinary incontinence. Review of old urology record shows that she was supposed to be on tamsulosin but she thinks she discontinued on her own and is not sure why. Remains afebrile but with persistent leukocytosis. Seen by wound care today for her sacral wound which is unstageable Telemetry with normal sinus rhythm rates in the 80s to 90s Review of Systems Review of Systems: All systems reviewed & are unremarkable except as noted in HPI & below Physical Exam Constitutional: WD/WN, vitals as above Eyes: + anicteric sclerae Neck: trachea midline, no thyromegaly Respiratory: normal respiratory effort, lungs clear to auscultation Cardiovascular: RRR, no murmur, no edema Chest (Breasts): Chest: normal inspection of chest Gastrointestinal (Abdomen): normal bowel sounds, soft, nontender, no hepatosplenomegaly Musculoskeletal: Extremities: + extremities abnormal to inspection (Right hip with dressing soaked with serous fluid and removed, wound looks nice, no surrounding erythema, Steri-Strips in place), no cyanosis and no clubbing Skin: no rashes, warm and dry Neurologic: moves all extremities and awake; no focal motor deficits Psychiatric: Orientation: alert, oriented to person, oriented to place, oriented to time and cooperative Eye Contact: good eye contact Affect: + flat affect Lymphatic: no lymphedema Results & Data Vital Signs (Past 12 Hours) Vital Signs Temp Pulse Pulse Resp BP BP Pulse Ox 09/30/19 15:36 36.8 C 84 18 129/63 93 09/30/19 12:02 36.3 C L 88 20 113/65 93 09/30/19 07:56 79 09/30/19 07:53 169/65 H 09/30/19 07:15 36.6 C 85 20 197/76 H 92 Laboratory Results Labs reviewed, sodium up to 120 7 in the afternoon, creatinine is normal WBC count stable at 12.1, platelets down to 430, hemoglobin 10.1 Wound culture not yet collected Urine osmolality even higher in the 500s PG Care Time/CCT Total # of Minutes Spent Total Time Spent with Patient: Total time spent is greater than 50% in coordination of care (as documented) at patient's floor/unit and/or counseling patient: (1) Rheumatoid arthritis Rheumatoid arthritis location: unspecified site Rheumatoid factor presence: unspecified presence Qualified Code(s): M06.9 - Rheumatoid arthritis, unspecified (2) Hip fracture Encounter type: initial encounter Fracture type: closed Laterality: right Qualified Code(s): S72.001A - Fracture of unspecified part of neck of right femur, initial encounter for closed fracture (3) Depression Active/Remission status: remission status unspecified Depression Type: major depressive disorder Major depression recurrence: recurrent Qualified Code(s): F33.9 - Major depressive disorder, recurrent, unspecified (4) Hyperlipidemia Hyperlipidemia type: unspecified Qualified Code(s): E78.5 - Hyperlipidemia, unspecified (5) Leukocytosis Leukocytosis type: unspecified Qualified Code(s): D72.829 - Elevated white blood cell count, unspecified (6) Hypertension Hypertension type: essential hypertension Qualified Code(s): I10 - Essential (primary) hypertension
[2019-09-30] MEDS: ENOXAPARIN INJ 40 MG/0.4 ML SYR SQ SCH (19:57)
[2019-09-30] MEDS: TAMSULOSIN HCL 0.4 MG CAP PO SCH (19:58)
[2019-09-30] MEDS: LATANOPROST 0.005% OP SOLN 2.5 ML BTL OPB SCH (19:59)
[2019-10-01] MEDS: OXYCODONE HCL IR 5 MG TAB (IMMEDIATE RELEASE) PO PRN (01:34)
[2019-10-01] MEDS: ACETAMINOPHEN 325 MG TAB PO SCH ×4 (02:53→21:22)
[2019-10-01] MEDS: HydrALAZINE 10 MG TAB PO PRN (04:39)
[2019-10-01 07:09] LABS: Basophils # (auto) 0.04 K/uL (0-0.2); Basophils % (auto) 0.4 %; Eosinophils # (auto) 0.07 K/uL (0-0.5); Eosinophils % (auto) 0.6 %; Hematocrit (blood only) 29.2 % (37-47); Hemoglobin 9.9 g/dL (12.0-16.0); Immature Granulocytes # (auto) 0.13 K/uL (0.00-0.02); Immature Granulocytes % (auto) 1.1 %; Lymphocytes # (auto) 1.99 K/uL (1.2-3.4); Lymphocytes % (auto) 17.5 %; Mean Corpuscular Hemoglobin 33.3 pg (25-34); Mean Corpuscular Hgb Conc 33.9 g/dL (32-36); Mean Corpuscular Volume 98.3 fL (80-100); Mean Platelet Volume 9.2 fL (7.4-10.4); Monocytes # (auto) 0.99 K/uL (0.11-0.59); Monocytes % (auto) 8.7 %; Neutrophils # (auto) 8.13 K/uL (1.4-6.5); Neutrophils % (auto) 71.7 %; Platelet Count 411 K/uL (130-400); RDW Coefficient of Variation 15.7 % (11.5-14.5); RDW Standard Deviation 55.7 fL (36.4-46.3); Red Blood Count 2.97 M/uL (4.2-5.4); White Blood Count 11.35 K/uL (4.8-10.8)
[2019-10-01 07:37] LABS: BUN Creatinine Ratio 21.6 (10-20); Calcium 8.6 mg/dl (8.5-10.1); Creatinine Clr Calc Pharmacy 44.6 ml/min; Est GFR (African American) 91.6; Potassium 4.3 mmol/L (3.5-5.1)
[2019-10-01] MEDS: NICOTINE 7 MG/24 HR TDSY TD SCH (08:27)
[2019-10-01] MEDS: SODIUM CHLORIDE 1 GM TABLET PO SCH ×2 (08:27→21:22)
[2019-10-01] MEDS: POLYETHYLENE (MIRALAX) 17 GM PACK PO SCH (08:30)
[2019-10-01] MEDS: lisinopriL 10 MG TAB PO SCH (08:30)
[2019-10-01] MEDS: DULOXETINE HCL 20 MG CAP PO SCH (08:31)
[2019-10-01] MEDS: CEROVITE ADV FORMULA TAB PO SCH (08:32)
[2019-10-01] MEDS: cephALEXin 500 MG CAP PO SCH (08:32)
[2019-10-01] MEDS: sulfaSALAzine 500 MG TABEC PO SCH ×3 (08:32→21:22)
[2019-10-01] MEDS: predniSONE 10 MG TABLET PO SCH (08:33)
[2019-10-01] MEDS: DOCUSATE SODIUM 100 MG CAP PO SCH ×2 (08:33→21:21)
[2019-10-01] MEDS: CHOLECALCIFEROL 1,000 UNITS TAB PO SCH (08:33)
[2019-10-01] MEDS: ATORVASTATIN 20 MG TAB PO SCH (08:33)
[2019-10-01] MEDS: LIDOCAINE 5% 1 PATCH TD SCH (08:34)
[2019-10-01] MEDS: lisinopriL 20 MG TAB PO SCH (10:00)
[2019-10-01] MEDS: ASPIRIN 81 MG ECTAB PO SCH ×2 (10:01→21:22)
--- NOTE | 2019-10-01 16:00 | Hospitalist Progress Note ---
Date of Service October 01, 2019 Assessment & Plan (1) Hyponatremia: Upon admission, thought to be hypovolemic secondary to very poor p.o. intake of both solute and fluid over the last 1 to 2 weeks as per her report. Sodium was 135 two weeks ago at the time of discharge after her hip surgery. With ketones in the urine, appeared dry on examination, likely hypovolemia and hypotonic hyponatremia, however with continued normal saline, her sodium dropped back down a little bit. Now on fluid restriction at 1500 with salt tablets provided 1 g p.o. 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 She has had some mildly low sodiums over the last year and a half which is approximately the time she has been on Cymbalta She was fairly asymptomatic with this sodium of 121 upon admission except very poor appetite Urine osmolality 446, urine sodium 34, serum osmolality 259 Urine osmolality is high which is consistent with hypovolemic hyponatremia and is starting to come Back down Is now euvolemic TSH normal, no signs of adrenal insufficiency -Have since discontinued IV fluids -Continue to encourage p.o. intake -Continue salt tablets 1 g p.o. twice daily and fluid restrict to 1500 mL's per day -Continue to follow BMP again in the morning along with urine osmolality -If hyponatremia persists, consider work-up for pulmonary malignancy given history of smoking There is mention of patient gagging frequently in ER MD note, however patient denies any difficulty with swallowing to me-seen by speech therapy here and patient denied any issues with this -Low appetite may be due to recent hip fracture and also with opioid use, as well as depressed mood-now resolving (2) Tobacco use: Patient has not smoked since 2 weeks ago before hip fracture -Continue nicotine patch (3) Leukocytosis: WBC count 15 admission, could be related to stress versus prednisone use, versus infected sacral wound as below Remains afebrile and now WBC count trending downward to 11 today after starting antibiotics for sacral wound Platelets also elevated indicative of acute phase reactant and are also trending downward UA negative for infection and she is recently been on Macrobid for UTI-no urinary symptoms No fevers or chills, no cough or respiratory symptoms, no abdominal pain, no diarrhea or vomiting No sign of infection of the hip at this time but does have some serous drainage from the hip With an unstageable sacral decubitus ulcer with some mild surrounding erythema and scant drainage-seems to be infected - wound culture of the sacral decub growing coag negative staph -Switch Keflex to doxycycline -Follow CBC in the morning (4) Hypertension: Blood pressures remain quite elevated -Increase lisinopril to 20 mg daily -Continue aspirin (5) Hyperlipidemia: -Continue statin and aspirin (6) Depression: Stable-patient reports she does not feel depressed. She was started on Cymbalta after her after she had what she feels was normal grieving response -She would like to be tapered off her Cymbalta-we will defer to PCP and continue it for now especially as she seems to have depressed affect (7) Rheumatoid arthritis: For many years, on chronic prednisone -Continue home dose of prednisone 10 mg daily, no need for stress dose steroids at this time -Continue sulfasalazine (of note, med list reads sulfadiazine but pharmacy assures me she is getting sulfasalazine-error in [employer] system) (8) Hip fracture: Recent hip fracture with repair on 09/13 of the right hip Doing very well with this, no pain, no longer taking opioids -Continue aspirin 81 mg p.o. twice daily for 6 weeks and PAMELA hose x3 weeks as per Ortho recommendations for DVT prophylaxis -Orthopedics saw her here in the hospital and removed her zip line dressing and replaced it with 4 x 4's and adhesive tape-to be changed as needed for drainage -Has follow-up scheduled with Dr Santana for her 6wk post-op visit on 11-02-19 at 2pm. Xrays will be done at that visit -Continue PT/OT-will be with home health after discharge (9) Severe protein-calorie malnutrition: Severe protein-calorie malnutrition -Nutrition consult appreciated-starting supplements -Encouraged continued p.o. intake (10) Decubitus ulcer of sacral region, unstageable: With approximately 2 X1 centimeter full skin thickness open wound with surrounding erythema and scant drainage on sacrum -Keep covered with OPTi foam -Consult wound nurse appreciated-May need debridement with wound care MD if still here on Thursday -Coagulase-negative Staphylococcus growing from wound culture and continues on antibiotics as above Offloading pressure -Will need home nursing and follow-up at wound care clinic (11) Urinary incontinence: Chronic, follows with urology Was supposed to be on tamsulosin as per urology visit notes in June 2019- patient thinks she discontinued it but is not sure why -Restarted tamsulosin 0.4 mg daily here -Follow-up with urology as an outpatient (12) DVT prophylaxis: Lovenox 40 mg SQ daily, aspirin 81 mg p.o. twice daily Disposition-continued telemetry given electrolyte abnormalities PT/OT evaluations appreciated, would go home with home health from here -Hopeful discharged home the next 1 to 2 days if sodium continues to improve and signs of infection improve Subjective Patient did not eat breakfast but ate a good lunch. Her mood seems down but she is excited about the possibility of going home tomorrow. She later in the day ambulated in the halls with nursing and did very well. She reports that when she goes home she will eat much better as she loves home-cooked food. She has some soreness in her sacrum at the site of her wound. No hip pain. Denies chest pain or shortness of breath, no lightheadedness or nausea. Telemetry with normal sinus rhythm with rates in the 70s to 80s, had 13 beats/4 seconds of atrial tachycardia Review of Systems Review of Systems: All systems reviewed & are unremarkable except as noted in HPI & below Physical Exam Constitutional: WD/WN, vitals as above Eyes: + anicteric sclerae Neck: trachea midline, no thyromegaly Respiratory: normal respiratory effort, lungs clear to auscultation Cardiovascular: RRR, no murmur, no edema Chest (Breasts): Chest: normal inspection of chest Gastrointestinal (Abdomen): normal bowel sounds, soft, nontender, no hepat osplenomegaly Musculoskeletal: Extremities: + extremities abnormal to inspection (Right hip with dressing,no surrounding erythema, Steri-Strips in place), no cyanosis and no clubbing Skin: + wound (Sacral wound 2 x 1 cm full skin thickness with minimal white to yellow exudate and serous drainage with mild surrounding erythema) Neurologic: moves all extremities and awake; no focal motor deficits Psychiatric: Orientation: alert, oriented to person, oriented to place, oriented to time and cooperative Eye Contact: good eye contact Affect: + flat affect Lymphatic: no lymphedema Results & Data Vital Signs (Past 12 Hours) Vital Signs Temp Pulse Pulse Resp BP BP Pulse Ox 10/01/19 15:29 37.1 C 78 18 129/57 L 92 10/01/19 14:53 85 10/01/19 10:31 36.7 C 83 18 112/59 L 91 10/01/19 07:46 36.6 C 92 H 20 196/79 H 199/64 H 92 10/01/19 07:21 78 10/01/19 05:46 82 187/71 H 10/01/19 04:38 83 207/76 H 10/01/19 04:01 36.4 C L 83 16 192/74 H 95 Laboratory Results Labs reviewed, sodium up to 129, WBC count down to 11 PG Care Time/CCT Total # of Minutes Spent Total Time Spent with Patient: Total time spent is greater than 50% in coordination of care (as documented) at patient's floor/unit and/or counseling patient: (1) Rheumatoid arthritis Rheumatoid arthritis location: unspecified site Rheumatoid factor presence: unspecified presence Qualified Code(s): M06.9 - Rheumatoid arthritis, unspecified (2) Hip fracture Encounter type: initial encounter Fracture type: closed Laterality: right Qualified Code(s): S72.001A - Fracture of unspecified part of neck of right femur, initial encounter for closed fracture (3) Depression Active/Remission status: remission status unspecified Depression Type: major depressive disorder Major depression recurrence: recurrent Qualified Code(s): F33.9 - Major depressive disorder, recurrent, unspecified (4) Hyperlipidemia Hyperlipidemia type: unspecified Qualified Code(s): E78.5 - Hyperlipidemia, unspecified (5) Leukocytosis Leukocytosis type: unspecified Qualified Code(s): D72.829 - Elevated white blood cell count, unspecified (6) Hypertension Hypertension type: essential hypertension Qualified Code(s): I10 - Essential (primary) hypertension
[2019-10-01] MEDS: DOXYCYCLINE HYCLATE 100 MG CAP PO SCH ×2 (17:24→21:23)
[2019-10-01] MEDS: TAMSULOSIN HCL 0.4 MG CAP PO SCH (21:23)
[2019-10-01] MEDS: ENOXAPARIN INJ 40 MG/0.4 ML SYR SQ SCH (21:23)
[2019-10-01] MEDS: LATANOPROST 0.005% OP SOLN 2.5 ML BTL OPB SCH (21:23)
[2019-10-02] MEDS: OXYCODONE HCL IR 5 MG TAB (IMMEDIATE RELEASE) PO PRN (01:13)
[2019-10-02] MEDS: ACETAMINOPHEN 325 MG TAB PO SCH ×2 (03:10→09:49)
[2019-10-02] MEDS: HydrALAZINE 10 MG TAB PO PRN (05:57)
[2019-10-02 06:32] LABS: Basophils # (auto) 0.06 K/uL (0-0.2); Basophils % (auto) 0.7 %; Eosinophils # (auto) 0.05 K/uL (0-0.5); Eosinophils % (auto) 0.6 %; Hematocrit (blood only) 28.4 % (37-47); Hemoglobin 9.6 g/dL (12.0-16.0); Immature Granulocytes # (auto) 0.12 K/uL (0.00-0.02); Immature Granulocytes % (auto) 1.3 %; Lymphocytes # (auto) 2.23 K/uL (1.2-3.4); Lymphocytes % (auto) 24.8 %; Mean Corpuscular Hemoglobin 33.3 pg (25-34); Mean Corpuscular Hgb Conc 33.8 g/dL (32-36); Mean Corpuscular Volume 98.6 fL (80-100); Mean Platelet Volume 8.9 fL (7.4-10.4); Neutrophils # (auto) 5.65 K/uL (1.4-6.5); Neutrophils % (auto) 62.6 %; Platelet Count 387 K/uL (130-400); RDW Coefficient of Variation 16.1 % (11.5-14.5); RDW Standard Deviation 56.8 fL (36.4-46.3); Red Blood Count 2.88 M/uL (4.2-5.4); White Blood Count 9.01 K/uL (4.8-10.8)
[2019-10-02] MEDS ORDERED: CEROVITE ADV FORMULA TAB PO SCH (07:00)
[2019-10-02 07:04] LABS: BUN Creatinine Ratio 22.1 (10-20); Calcium 8.5 mg/dl (8.5-10.1); Creatinine Clr Calc Pharmacy 41.5 ml/min; Est GFR (African American) 87.3; Est GFR (Non-African American) 75.3; Potassium 4.3 mmol/L (3.5-5.1)
[2019-10-02] MEDS: DOCUSATE SODIUM 100 MG CAP PO SCH (09:43)
[2019-10-02] MEDS: sulfaSALAzine 500 MG TABEC PO SCH (09:43)
[2019-10-02] MEDS: DULOXETINE HCL 20 MG CAP PO SCH (09:45)
[2019-10-02] MEDS: ASPIRIN 81 MG ECTAB PO SCH (09:46)
[2019-10-02] MEDS: LIDOCAINE 5% 1 PATCH TD SCH (09:47)
[2019-10-02] MEDS: NICOTINE 7 MG/24 HR TDSY TD SCH (09:47)
[2019-10-02] MEDS: ATORVASTATIN 20 MG TAB PO SCH (09:48)
[2019-10-02] MEDS: predniSONE 10 MG TABLET PO SCH (09:48)
[2019-10-02] MEDS: SODIUM CHLORIDE 1 GM TABLET PO SCH (09:49)
[2019-10-02] MEDS: CHOLECALCIFEROL 1,000 UNITS TAB PO SCH (09:49)
[2019-10-02] MEDS: DOXYCYCLINE HYCLATE 100 MG CAP PO SCH (09:50)
[2019-10-02] MEDS: lisinopriL 20 MG TAB PO SCH (09:50)
[2019-10-02] MEDS: POLYETHYLENE (MIRALAX) 17 GM PACK PO SCH (09:51)
[2019-10-02] MEDS ORDERED: FLUCONAZOLE 100 MG TAB PO SCH (14:00)
--- NOTE | 2019-10-02 14:15 | Discharge Summary ---
Date of Service October 02, 2019 Admission HPI Per Admitting Provider This patient is an 89-year-old female with a history of HTN, HL, RA on chronic steroids, current smoker, kidney stones, glaucoma, and a recent right hip fracture status post ORIF who presents from [facility] after having routine labs this morning which showed a sodium of 121. She was supposed to be discharged from rehab today but instead was sent to the ER for further work-up for her hyponatremia. When I saw the patient, she reports that she has been feeling well. Denies headache or lightheadedness. Denies shortness of breath or chest pain. Denies abdominal pain or nausea. She does report that she has had very poor appetite and is really been eating very minimally the whole time she has been at the rehab facility. She also was very upset that she was on a fluid restriction while she was there-unclear why she was on this but perhaps due to her history of hyponatremia? She states that she is feeling hungry and would like to try to eat and she has not felt this way for quite some time. She denies feeling depressed. In the ER, she received 500 mL's of normal saline. She will be admitted for acute hyponatremia. Principal Diagnosis Hyponatremia, sacral decubitus ulcer with cellulitis Discharge Exam Constitutional WD/WN, vitals as above Eyes + anicteric sclerae Neck trachea midline, no thyromegaly Respiratory normal respiratory effort, lungs clear to auscultation Cardiovascular RRR, no murmur, no edema Chest (Breasts) Chest: normal inspection of chest Gastrointestinal (Abdomen) normal bowel sounds, soft, nontender, no hepatosplenomegaly Musculoskeletal Extremities: + extremities abnormal to inspection (Right hip with dressing,no surrounding erythema, Steri-Strips in place), no cyanosis and no clubbing Skin + wound (Sacral wound 2 x 1 cm full skin thickness with minimal white to yellow exudate and serous drainage with mild surrounding erythema) erythema around sacal decub is much improved Neurologic moves all extremities and awake; no focal motor deficits Psychiatric Orientation: alert, oriented to person, oriented to place, oriented to time and cooperative Eye Contact: good eye contact Affect: + flat affect Lymphatic no lymphedema Discharge Data Allergies Allergy/AdvReac Type Severity Reaction Status Date / Time Sulfa (Sulfonamide Allergy Unknown Rash Verified 09/28/19 13:20 Antibiotics) nicotine AdvReac Mild PATCH-SKIN Verified 09/28/19 13:20 IRRITATION shrimp AdvReac Unknown Photosensit Unverified 09/28/19 13:21 ivity Consultations 09/28/19 15:12 ED Decision to Admit Stat 09/28/19 19:53 Consult Case Management - Discharge Planning Routine Ordered Studies CXR Hospital Course (1) Hyponatremia: Upon admission, thought to be hypovolemic secondary to very poor p.o. intake of both solute and fluid over the last 1 to 2 weeks as per her report while at [facility] rehab. Sodium was 135 two weeks ago at the time of discharge after her hip surgery. With ketones in the urine, appeared dry on examination, likely hypovolemia and hypotonic hyponatremia, however Na+ did improve initially to 126 with instillation of normal saline, but then dropped back slightly the next day with continued IVFs. Likely also some component of low solute diet, SIADH from pain, tramadol use, also on Cymbalta Now sodium continues to improve on fluid restriction at 1500 with salt tablets provided 1 g p.o. twice daily Sodium up to and stable at 129 She was fairly asymptomatic with a sodium of 121 upon admission except very poor appetite Urine osmolality 446, urine sodium 34, serum osmolality 259 on admission Urine osmolality is high which is consistent with hypovolemic hyponatremia and is starting to come back down Is now euvolemic TSH normal, no signs of adrenal insufficiency -Continue to encourage p.o. intake -Continue salt tablets 1 g p.o. twice daily and fluid restrict to 1500 mL's per day upon discharge -Continue to follow BMP with [facility] tomorrow (10/03/19) -If hyponatremia persists, consider work-up for pulmonary malignancy given history of smoking -Low appetite may be due to recent hip fracture and also with opioid use, as well as depressed mood-now resolving and patient says she will definitely be more prone to eating once she returns home as she will be happier. (2) Tobacco use: Patient has not smoked since 2 weeks ago before hip fracture -Continue nicotine patch (3) Leukocytosis: WBC count 15 admission, could be related to stress versus prednisone use, versus infected sacral wound as below Remains afebrile and now WBC count trended downward back to normal at 9 today after starting antibiotics for sacral wound Platelets also elevated indicative of acute phase reactant and are also trending downward UA negative for infection and she is recently been on Macrobid for UTI-no urinary symptoms No fevers or chills, no cough or respiratory symptoms, no abdominal pain, no diarrhea or vomiting No sign of infection of the hip incision at this time but does have some serous drainage from the hip With an unstageable sacral decubitus ulcer with some mild surrounding erythema and scant drainage-seems to be infected--> improving on antibiotics - wound culture of the sacral decub growing coag negative staph and Itzel albicans -continue doxycycline 100mg po bid x 7 day course -continue Diflucan 100mg daily x 7 day course -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 She was started on C ymbalta after her after she had what she feels was normal grieving response -She would like to be tapered off her Cymbalta-we will defer to PCP and continue it for now especially as she seems to have depressed affect (7) Rheumatoid arthritis: For many years, on chronic prednisone -Continue home dose of prednisone 10 mg daily -Continue sulfasalazine (8) Hip fracture: Recent hip fracture with repair on 09/13 of the right hip Doing very well with this, no pain, no longer taking opioids -Continue aspirin 81 mg p.o. twice daily for 6 weeks post-op and PAMELA hose x3 weeks as per Ortho recommendations for DVT prophylaxis -Orthopedics saw her here in the hospital and removed her zip line dressing and replaced it with 4 x 4's and adhesive tape-to be changed as needed for drainage -Has follow-up scheduled with Dr Santana for her 6wk post-op visit on 11-02-19 at 2pm. Xrays will be done at that visit -Continue PT/OT-will be with home health after discharge (9) Severe protein-calorie malnutrition: Severe protein-calorie malnutrition -Nutrition consult appreciated-starting supplements -Encouraged continued p.o. intake (10) Decubitus ulcer of sacral region, unstageable: With approximately 2 X1 centimeter full skin thickness open wound with surrounding erythema and scant drainage on sacrum -Keep covered with OPTi foam -Consult wound nurse appreciated-follow up with Wound Care clinic -Coagulase-negative Staphylococcus ad Itzel albicans growing from wound culture and continues on antibiotics as above Offloading pressure -Will need home nursing and follow-up at wound care clinic (11) Urinary incontinence: Chronic, follows with urology Was supposed to be on tamsulosin as per urology visit notes in June 2019- patient thinks she discontinued it but is not sure why -Restarted tamsulosin 0.4 mg daily here -Follow-up with urology as an outpatient (12) DVT prophylaxis: Lovenox 40 mg SQ daily, aspirin 81 mg p.o. twice daily provided Disposition-stable for dc to home Total Time Total Time Spent Total Time Spent (In Minutes): 40 min Total Time Includes: Examination of the Patient, Discharge Planning and Medication Reconciliation Discharge Plan Discharge Items Patient Disposition: Home - Home Health Services Reason For Visit: HYPONATREMIA Discharge Diagnosis: Hyponatremia, recent hip fracture with repair, sacral decubitus wound with cellulitis Condition on Discharge: Fair Activity: As commented below Lifting: Gradually increase as tolerated Bathing: Keep incision dry Bathing Comment: You can shower but no soaking in tubs until cleared by Orthopedic Surgeon Exercise/Sports: Gradually increase as tolerated Exercise Comment: with home PT/OT Weightbearing: Full weightbearing Weightbearing Comment: with assist of a walker Non-emergency contact: Primary Care Provider and Surgeon Call non-emergency contact if: you have any medication questions, your symptoms worsen, your pain is not controlled, your pain is worsening, your pain is unusual for you, your pain is concerning for you, you have a fever and your temperature is above 101 Follow-up/Referrals: Ben Schmidt [Primary Care Provider] - (Please call for a follow up appointment within 1 week.) Albert Santana MD [Physician] - 11/02/19 2:00 pm (follow-up with Dr Santana at [facility] on 11-02-19 at 2pm. Please arrive 15min early for check-in. Xrays will be done at that appointment. Please call [phone] with any questions. ) Diet: Regular Fluids: 1500ml (6 cups) Addtl Attending Provider Instructions: Your sodium level has improved with increased intake of food. Please continue on the salt tablets and continue to eat more each day. The home health RN should check your bloodwork with a Basic Metabolic Panel on Thursday with the results to be sent to your PCP, Dr. Schmidt, for review. Until your sodium levels return completely to normal, please continue to limit your liquids intake to 1500mL/day. You developed a wound on your bottom which should be kept covered and changed daily. It had a surrounding infection of the skin called cellulitis. Please take the antibiotics as prescribed: 1. doxycycline 100mg dov daily x 6 days and 2. Diflucan (fluconazole) 100mg once daily x 6 more days. Follow up with your PCP within 1-2 weeks. Addtl Hospital Coder Provider Instructions: Orthopedics: Hx of right hip hemiarthroplasty 09-14-[address] Santana. Continue R LE WBAT with walker. Continue Standard Hip Precautions. Continue DVT prophylaxis with ASA 81mg BID x 6wks post-op and TEDS B LE x 3wks post-op Dressings can be removed to right hip once discharged home. Recommend Home Health PT upon D/C from hospital. Patient is scheduled for follow-up with Dr Santana on 11-02-19 at 2pm. Please call [phone] with any questions. Pending Studies at Discharge: No Stand-Alone Forms: [facility], Smoking Cessation Medications and DC Order Prescriptions: New doxycycline hyclate 100 mg Capsule 100 mg PO BID 6 Days Qty: 12 RF: 0 fluconazole 100 mg Tablet 100 mg PO QAM 6 Days Qty: 6 RF: 0 tamsulosin 0.4 mg Capsule 0.4 mg PO HS Qty: 30 RF: 0 lisinopril 20 mg Tablet 20 mg PO QAM Qty: 30 RF: 0 sodium chloride 1 gram Tablet 1 g PO BID Qty: 28 RF: 0 Continued nicotine 7 mg/24 hr Patch 24 Hour 7 mg transdermal QAM Qty: 0 RF: 0 polyethylene glycol 3350 [Miralax] 17 gram Powder In Packet 17 g PO QAM RF: 0 melatonin 2.5 mg/10 mL Liquid 5 mg PO HS RF: 0 latanoprost 0.005 % Drops 1 drp OPB HS RF: 0 Centrum Silver Women 8 mg iron-400 mcg-300 mcg Tablet 1 tab PO QAM RF: 0 prednisone 10 mg tablet 10 mg PO QAM RF: 0 atorvastatin 20 mg tablet 20 mg PO QAM RF: 0 sulfasalazine 500 mg tablet,delayed release (DR/EC) 500 mg PO TID RF: 0 duloxetine 20 mg capsule,delayed release(DR/EC) 20 mg PO QAM RF: 0 cholecalciferol (vitamin D3) [Vitamin D3] 50 mcg (2,000 unit) Capsule 50 mcg PO QAM RF: 0 aspirin [Ecotrin Low Strength] 81 mg Tablet,Delayed Release (Dr/Ec) 81 mg PO BID Qty: 60 RF: 0 Changed acetaminophen [Tylenol] 325 mg Tablet 325 mg PO Q6H PRN (Reason: pain) Qty: 0 RF: 0 Discontinued bisacodyl [Laxative (bisacodyl)] 10 mg Suppository 10 mg SC DAILY PRN (Reason: constipation) Qty: 30 RF: 0 oxycodone 5 mg Tablet 5 mg PO Q12H PRN (Reason: severe pain) Qty: 14 RF: 0 tramadol 50 mg tablet 50 mg PO Q6H PRN (Reason: Pain) RF: 0 lisinopril 10 mg tablet 10 mg PO QAM RF: 0 lidocaine [Lidoderm] 5 % Adhesive Patch,Medicated 2 patch topical QAM RF: 0 docusate sodium [Colace] 100 mg Capsule 100 mg PO BID RF: 0 nitrofurantoin monohyd/m-cryst 100 mg capsule 100 mg PO BID RF: 0 sennosides-docusate sodium [Senokot-S] 8.6-50 mg tablet 1 tab PO QDL PRN (Reason: Constipation) RF: 0 meloxicam 15 mg tablet 15 mg PO QAM RF: 0 Discharge Orders: Discharge Order (Routine); Ordered 10/02/19 Ordered By: Alessandra Sultana Admission Data Admit Date/Time: 09/28/19 17:45 Attending Provider: Alessandra Sultana Admit Provider: Alessandra Sultana Primary Care Provider: Ben Schmidt Other Providers: Eliu Dillard ; [facility],[employer]
== END 2019-10-02 15:26 | disposition home health service (06) | DRG 640 ==
LOC: ED 11:16 → 2N 17:45

== ENCOUNTER 2019-10-28 10:59 | Inpatient (IN) ==
[2019-10-28] MEDS ORDERED: ONDANSETRON INJ 2 MG/ML 2 ML VIAL IV STA (11:28)
[2019-10-28] MEDS ORDERED: fentaNYL citrate 100 MCG/2 ML VIAL IV STA (11:28)
[2019-10-28] MEDS ORDERED: SODIUM CHLORIDE 0.9% 1000ML 1,000 ML IV SCH ×2 (11:30→15:27)
--- NOTE | 2019-10-28 12:02 | CT Scan Report ---
CT abd pelvis wo con CLINICAL HISTORY: 89 years-old Female presenting with R flank pain. TECHNIQUE: Multidetector CT of the abdomen and pelvis was performed without the use of intravenous co ntrast. IV contrast: None. One or more dose lowering techniques were used consistent with the princip les of ALARA (as low as reasonably achievable), including automatic exposure control, mA or kV adjust ment to individual patient size, and/or use of iterative reconstruction. COMPARISON: 01/26/2018. CT DOSE (mGy.cm): The estimated cumulative dose is 246.72 mGy.cm. 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 Lung bases: Dense mitral annular calcification. Coronary artery calcification. No heart size. No molly cardial or pleural effusion. No focal infiltrate or nodule at the lung bases. Liver: Normal morphology. Normal density. Subcentimeter hepatic cyst suggested centrally within the l iver. Biliary: No gross biliary ductal dilatation allowing for noncontrast technique. Normal gallbladder. Pancreas: Mild parenchymal atrophy. Spleen: Normal noncontrast appearance. Adrenal glands: Normal noncontrast appearance. Kidneys and ureters: Moderate right perinephric fluid is new from prior exam. Severe pelvocaliectasis of the right kidney and distention of the right ureter to the level of an obstructing mid ureteral c alculus measuring 6 mm. This has progressed from prior exam and was previously in the proximal ureter . This calculus also appears to have decreased in size. Additional nonobstructing smaller calculus no teresa at the lower pole the right kidney. Nonobstructing dominant 9 mm calculus at the lower pole of th e left kidney in addition to a few smaller calculi. No left hydronephrosis. Bladder: Incompletely evaluated secondary to underdistention. No bladder calculi. Pelvic organs: Normal noncontrast appearance. Bowel: Diverticulosis of the upper rectum. Normal appendix. No bowel obstruction. Suboptimal evaluati on of the bowel due to diffusely infiltrated mesenteric and omental fat. Peritoneal cavity: Trace abdominopelvic ascites and diffusely infiltrated mesenteric and omental fat. No free intraperitoneal gas. Significant retroperitoneal fluid on the right. Lymph nodes: No gross lymphadenopathy allowing for noncontrast technique. Vasculature: Extensive calcified atherosclerotic plaque throughout the normal caliber abdominal aorta . Ectasia of the bilateral common iliac arteries as on prior exam. Abdominal wall: Moderate body wall edema. Musculoskeletal: Total right hip arthroplasty without gross evidence of complication. Degenerative ch anges of the pubic symphysis and lumbar spine. Multilevel posterior spondylitic spurring with resulta nt osseous spinal canal narrowing. IMPRESSION: 1. Progression of the right ureteral calculus now in the mid right ureter. There is also apparent de creased size in comparison to prior. 2. Severe right hydroureteronephrosis. The degree of perinephric fluid is new from prior exam and schultz ggests forniceal rupture. Please correlate with urinalysis to exclude a superimposed infection. 3. Bilateral nonobstructing nephrolithiasis with a dominant calculus on the left measuring 9 mm. 4. Significant volume overload evidenced by the degree of body wall edema and diffuse mesenteric and omental infiltration. 5. Additional findings as above. ACT 112: Negative or not required by law. Electronically signed by: Erik Dowd M.D. 10/28/2019 12:01 PM
[2019-10-28 12:13] LABS: Hematocrit (blood only) 35.8 % (37-47); Hemoglobin 12.2 g/dL (12.0-16.0); Mean Corpuscular Hemoglobin 34.8 pg (25-34); Mean Corpuscular Hgb Conc 34.1 g/dL (32-36); Platelet Count 346 K/uL (130-400); RDW Standard Deviation 55.6 fL (36.4-46.3); Red Blood Count 3.51 M/uL (4.2-5.4); White Blood Count 23.39 K/uL (4.8-10.8)
[2019-10-28 12:28] LABS: Alanine Aminotransferase 11 U/L (12-78); Albumin Level 3.4 gm/dl (3.4-5.0); Aspartate Aminotransferase 18 U/L (15-37); BUN Creatinine Ratio 19.3 (10-20); Blood Urea Nitrogen 16 mg/dl (7-18); Calcium 9.2 mg/dl (8.5-10.1); Carbon Dioxide 24 mmol/L (21-32); Chloride 96 mmol/L (98-107); Est GFR (African American) 73.5; Est GFR (Non-African American) 63.4; Glucose 167 mg/dl (70-99); Lipase 40 U/L (73-393); Potassium 4.2 mmol/L (3.5-5.1); Sodium 130 mmol/L (136-145)
[2019-10-28 12:30] LABS: Appearance Urine Cloudy (Clear); Bacteria Urine Automated 4+ (Negative); Bilirubin Urine Negative (Negative); Blood Urine 3+ (Negative); Color Urine Dark Yellow; Glucose Urine UA Trace (Negative); Ketones Urine Trace (Negative); Leukocyte Esterase Urine 2+ (Negative); Nitrite Urine Positive (Negative); Protein Urine 1+ (Negative); RBC Urine Automated >30 /hpf (0-4); Specific Gravity Urine 1.019 (1.000-1.030); Urobilinogen Urine Negative (Negative); WBC Urine Automated >30 /hpf (0-5); pH Urine 6.5 (4.5-7.5)
[2019-10-28 12:33] LABS: Alkaline Phosphatase 60 U/L (45-117); Bilirubin,Total 0.5 mg/dl (0.2-1); Globulin 3.5 gm/dl (2.5-4.0); Total Protein 6.9 gm/dl (6.4-8.2); Troponin I < 0.015 ng/ml (0-0.045)
[2019-10-28 12:43] LABS: Basophils # (auto) 0.02 K/uL (0-0.2); Basophils % (auto) 0.1 %; Immature Granulocytes # (auto) 0.08 K/uL (0.00-0.02); Immature Granulocytes % (auto) 0.3 %; Lymphocytes # (auto) 0.36 K/uL (1.2-3.4); Lymphocytes % (auto) 1.5 %; Monocytes # (auto) 1.51 K/uL (0.11-0.59); Monocytes % (auto) 6.5 %; Neutrophils # (auto) 21.42 K/uL (1.4-6.5); Neutrophils % (auto) 91.6 %
[2019-10-28] MEDS ORDERED: PIPERACILL/TAZOBAC CONSULT ACTIVE PRN (13:09)
[2019-10-28] MEDS ORDERED: PIPERACILLIN/TAZOBACTAM 4.5 GM/120 ML BAG IV ONE (13:09)
[2019-10-28] MEDS ORDERED: HydrALAZINE HCL 20 MG/ML VIAL IV STA (14:10)
--- NOTE | 2019-10-28 14:25 | Urology Consultation ---
Date of Consultation October 28, 2019 Assessment & Plan (1) Hydronephrosis, right: Discussed options. Risks and benefits discussed at length for procedure. These include bleeding, infection, injury to surrounding tissues or organs, and risks associated with anesthesia. Patient states understanding and agrees to proceed. Will sign consent and schedule. Patient with possible acute UTI vs Pyelo with long history of chronic hydronephrosis with exacerbation. Will plan for admission with hospitalist and supportive care. Will set up for cystoscopy with bilateral stent placement urgently to decompress system and rule out obstruction. (2) UTI (urinary tract infection): See above. (3) Hypertension: Patient recently started on Myrbetriq. Acute Hypertensive Event may be related to acute illness vs adverse reaction to medication. Will hold myrbetriq and plan to proceed. History of Present Illness History of Present Illness Patient presented with nausea and ill feelings and worsening urinary issues. Patient had significant issues with leakage. Acutely worsening and bothersome. Started on Myrbetriq and now having severe hypertension. Imaging is showing significant perinephric fluid and possible exacerbation of chronic hydro. Ill feeling and pelvic discomfort with urgency and burning into groin and flank with spasms. Allergies Allergy/AdvReac Type Severity Reaction Status Date / Time Sulfa (Sulfonamide Allergy Intermediate Rash Verified 10/28/19 14:49 Antibiotics) mirabegron [From Myrbetriq] AdvReac Intermediate hypertensio Verified 10/28/19 14:49 n nicotine AdvReac Mild PATCH-SKIN Verified 10/28/19 14:49 IRRITATION shrimp AdvReac Mild Photosensit Verified 10/28/19 15:03 ivity Home Medications Home Medications Medication Instructions Recorded Confirmed Type Centrum Silver Women 1 tab PO QAM 07/06/18 10/28/19 History latanoprost 1 drp OPB HS 07/06/18 10/28/19 History atorvastatin 20 mg PO QAM 09/05/19 10/28/19 History cholecalciferol (vitamin D3) 50 mcg PO QAM 09/05/19 10/28/19 History [Vitamin D3] duloxetine 20 mg PO QAM 09/05/19 10/28/19 History prednisone 10 mg PO QAM 09/05/19 10/28/19 History sulfasalazine 500 mg PO TID 09/05/19 10/28/19 History nicotine 7 mg TRANSDERMAL QAM #0 ea 09/16/19 10/28/19 Rx melatonin 5 mg PO HS 09/28/19 10/28/19 History polyethylene glycol 3350 [Miralax] 17 g PO QAM 09/28/19 10/28/19 History acetaminophen [Tylenol] 325 mg PO Q6H PRN #0 tab 10/02/19 10/28/19 Rx aspirin [Ecotrin Low Strength] 81 mg PO BID #60 tab 10/02/19 10/28/19 Rx lisinopril 20 mg PO QAM #30 tab 10/02/19 10/28/19 Rx sodium chloride 1 g PO BID #28 tab 10/02/19 10/28/19 Rx tamsulosin 0.4 mg PO HS #30 cap 10/02/19 10/28/19 Rx ciprofloxacin HCl 500 mg tablet 500 mg PO BID 7 Days #14 tab 10/28/19 10/28/19 Rx ondansetron HCl 4 mg tablet 4 mg PO Q8H PRN #30 tab 10/28/19 10/28/19 Rx Patient History Medical History Anxiety (Chronic) Decubitus ulcer of sacral region, unstageable Depression (Chronic) Glaucoma (Chronic) Hearing deficit (Chronic) Hyperlipidemia (Chronic) Hypertension Kidney stones (Chronic) Osteoarthritis (Chronic) Rheumatoid arthritis (Chronic) Tobacco use Urinary incontinence Surgical History Hip fracture requiring operative repair History of cataract surgery (Resolved) left History of colonoscopy (Resolved) History of lithotripsy (Resolved) x 2 History of tooth extraction (Resolved) Nausea and vomiting after administration of anesthetic agent Family History Other No pertinent family history in first degree relatives Social History Preferred Language: Indonesian Communication Ability: Effective Visual Impairment: No Limitations 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 HEENT: Normocephalic Atraumatic. Inspection normal. Cranial Nerves 2-12 Grossly intact. Normal inspection of face. Normal inspection of neck. Psychologic: Normal affect. Respiratory: Nonlabored. No use of accessory muscles. No tachypnea or dyspnea. Cardiovascular: No tachycardia Skin: [place] and Dry. No rashes or visible lesions. Extremities/Lymphatics: No edema Abdomen: Soft Non-distended. No rebound or guarding. Results & Data Vital Signs (Past 12 Hours) Vital Signs Temp Pulse Pulse Resp BP BP Pulse Ox 10/28/19 12:21 199/81 H 10/28/19 12:13 90 18 207/81 H 94 10/28/19 12:06 93 10/28/19 11:05 36.3 C L 93 H 20 181/71 H 99 PG Care Time/CCT Total # of Minutes Spent Total Time Spent with Patient: Total time spent is greater than 50% in coordination of care (as documented) at patient's floor/unit and/or counseling patient: Coding Level of Care Code 72942 Office/Outpt Visit, Est Diagnoses Hydronephrosis, right N13.30 UTI (urinary tract infection) N39.0 Hematuria presence: without hematuria Urinary tract infection type: site unspecified Hypertension I10 (1) UTI (urinary tract infection) Hematuria presence: without hematuria Urinary tract infection type: site unspecified Qualified Code(s): N39.0 - Urinary tract infection, site not specified
--- NOTE | 2019-10-28 14:45 | Anesthesiology Consultation ---
Date of Service October 28, 2019 Assessment & Plan (1) Encounter for pre-operative examination: Chart Review Chart Review: Acceptable Risk for Surgery History Surgery Operation Date: 10/28/19 15:10 Proposed Procedures p Cystoscopy, Bilateral Stent Placements - Tejas Arguelles DO Height/Weight Height: 5 ft 2 in Weight: 47.3 kg Allergies Allergy/AdvReac Type Severity Reaction Status Date / Time Sulfa (Sulfonamide Allergy Intermediate Rash Verified 10/28/19 14:49 Antibiotics) mirabegron [From Myrbetriq] AdvReac Intermediate hypertensio Verified 10/28/19 14:49 n nicotine AdvReac Mild PATCH-SKIN Verified 10/28/19 14:49 IRRITATION shrimp AdvReac Mild Photosensit Verified 10/28/19 15:03 ivity Medications Home Medications Medication Instructions Recorded Confirmed Last Taken Centrum Silver Women 1 tab PO QAM 07/06/18 10/28/19 10/27/19 latanoprost 1 drp OPB HS 07/06/18 10/28/19 10/27/19 atorvastatin 20 mg PO QAM 09/05/19 10/28/19 10/27/19 cholecalciferol (vitamin D3) 50 mcg PO QAM 09/05/19 10/28/19 10/27/19 [Vitamin D3] duloxetine 20 mg PO QAM 09/05/19 10/28/19 10/27/19 prednisone 10 mg PO QAM 09/05/19 10/28/19 10/27/19 sulfasalazine 500 mg PO TID 09/05/19 10/28/19 10/27/19 nicotine 7 mg TRANSDERMAL QAM #0 ea 09/16/19 10/28/19 10/27/19 melatonin 5 mg PO HS 09/28/19 10/28/19 10/27/19 polyethylene glycol 3350 [Miralax] 17 g PO QAM 09/28/19 10/28/19 10/27/19 acetaminophen [Tylenol] 325 mg PO Q6H PRN #0 tab 10/02/19 10/28/19 10/27/19 aspirin [Ecotrin Low Strength] 81 mg PO BID #60 tab 10/02/19 10/28/19 10/27/19 lisinopril 20 mg PO QAM #30 tab 10/02/19 10/28/19 10/27/19 sodium chloride 1 g PO BID #28 tab 10/02/19 10/28/19 10/27/19 tamsulosin 0.4 mg PO HS #30 cap 10/02/19 10/28/19 10/27/19 ciprofloxacin HCl 500 mg tablet 500 mg PO BID 7 Days #14 tab 10/28/19 10/28/19 10/27/19 ondansetron HCl 4 mg tablet 4 mg PO Q8H PRN #30 tab 10/28/19 10/28/19 10/27/19 Active Medications Generic Name Dose Route Start Last Admin Trade Name Freq PRN Reason Stop Dose Admin Sodium Chloride 1,000 mls @ 125 mls/hr 10/28/19 11:30 10/28/19 12:12 Nss 1000ml IV 11/27/19 11:29 125 mls/hr .Q8H TIA Administration Past Medical History Medical History Anxiety (Chronic) Decubitus ulcer of sacral region, unstageable Depression (Chronic) Glaucoma (Chronic) Hearing deficit (Chronic) Hyperlipidemia (Chronic) Hypertension Kidney stones (Chronic) Osteoarthritis (Chronic) Rheumatoid arthritis (Chronic) Tobacco use Urinary incontinence Past Family History Family History Other No pertinent family history in first degree relatives Past Surgical History Surgical History Hip fracture requiring operative repair History of cataract surgery (Resolved) left History of colonoscopy (Resolved) History of lithotripsy (Resolved) x 2 History of tooth extraction (Resolved) Nausea and vomiting after administration of anesthetic agent Social History Smoking Status: Never smoker tobacco type: cigarettes Smoking cigarettes per day: 1/2 ppd Hx Alcohol Use: Yes Alcohol type: wine alcohol intake frequency: holidays/special occasions only Hx Substance Use: No substance use type: does not use Physical Exam Vital Signs Last Vital Signs Temp 36.3 C L 10/28/19 11:05 Pulse 111 H 10/28/19 14:30 Resp 19 10/28/19 14:30 BP 179/77 H 10/28/19 14:30 Pulse Ox 91 10/28/19 14:30 Testing Laboratory Results 10/28/19 12:00 10/28/19 12:00 Urine Color Dark Yellow 10/28/19 12:00 Urine Appearance Cloudy (Clear) A 10/28/19 12:00 Urine pH 6.5 (4.5-7.5) 10/28/19 12:00 Ur Specific [place] 1.019 (1.000-1.030) 10/28/19 12:00 Urine Protein 1+ (Negative) H 10/28/19 12:00 Urine Glucose (UA) Trace (Negative) H 10/28/19 12:00 Urine Ketones Trace (Negative) H 10/28/19 12:00 Urine Nitrite Positive (Negative) A 10/28/19 12:00 Ur Leukocyte Esterase 2+ (Negative) H 10/28/19 12:00 Urine WBC (Auto) >30 /hpf (0-5) H 10/28/19 12:00 Urine RBC (Auto) >30 /hpf (0-4) H 10/28/19 12:00 U Hyaline Cast (Auto) 1-5 /lpf (0-5) 10/28/19 12:00 U Epithel Cells (Auto) 5-10 /lpf (0-5) H 10/28/19 12:00 Urine Bacteria (Auto) 4+ (Negative) H 10/28/19 12:00 Electrocardiogram Date: 09/28/19 Findings: + AR (old inf?)
[2019-10-28] MEDS ORDERED: PROPOFOL IV EMULSION 10 MG/ML 20 ML VIAL IV ONE (14:54)
[2019-10-28] MEDS ORDERED: fentaNYL citrate 100 MCG/2 ML VIAL ONE (14:54)
[2019-10-28] MEDS ORDERED: LIDOCAINE HCL 2% 2 ML VIAL/AMP(20MG/ML) INFIL ONE (14:54)
[2019-10-28] MEDS ORDERED: ONDANSETRON INJ 2 MG/ML 2 ML VIAL ONE (14:54)
[2019-10-28] MEDS ORDERED: ATROPINE SULFATE 0.1 MG/ML 10ML SYR IV PRN (15:22)
[2019-10-28] MEDS ORDERED: PROMETHAZINE HCL 6.25 MG in SODIUM CHLORIDE 0.9% 50 ML IV PRN (15:22)
[2019-10-28] MEDS ORDERED: ePHEDrine sulfate 50 MG/ML AMP IV PRN (15:22)
--- NOTE | 2019-10-28 15:26 | History & Physical Report ---
Date of Service October 28, 2019 Assessment & Plan (1) Ureteral obstruction: Mid to MedSurg on telemetry Vital signs every 4 hours Keep n.p.o. patient is planned for the procedure by urology for hydronephrosis on the right side and cystoscopy with bilateral stent placement with retrograde and aspiration of purulent urine. Given Zosyn in the ER, continued with ceftriaxone 2 g IV daily since patient in the past had urine culture positive for E. coli it was pansensitive. Continue monitoring CBC and CMP. Continue tamsulosin 0.4 mg p.o. nightly. DVT prophylaxis SCDs and teds since patient is just status post procedure. Full code Present on Admission?: Yes (2) Hydronephrosis, right: As the above. (3) UTI (urinary tract infection): See above. (4) Hyponatremia: Continue home management with sodium chloride 1 g p.o. twice daily. Monitor closely. Patient appears to be at her baseline. Present on Admission?: Yes (5) Tobacco use: Continue nicotine patch. Patient is abstaining from smoking. Present on Admission?: Yes (6) Hypertension: Continue home medicine. Since patient has procedure today and could become hypotensive carefully monitor blood pressure and hold medicine if blood pressure is less than 120/80. Present on Admission?: Yes (7) Hyperlipidemia: Fasting lipid panel pending. Continue atorvastatin 20 mg p.o. every morning. Present on Admission?: Yes History of Present Illness Chief Complaint: Urinary tract infection and sepsis Primary Care Provider: Ben Schmidt The patient is a 89 years old female with past medical history of recurrent urinary tract infection, hearing deficit, kidney stones, history of lithotripsy, osteoarthritis, hypertension, hyperlipidemia, tobacco use, hyponatremia, right hip hemiarthroplasty, who was brought to the emergency room with a complaint of feeling weak and dizzy for the past several days. Patient was seen in the urology clinic on October 26, 2019 as a follow-up for her chronic urinary issues and considerable leakage due to stress/urge incontinence and interstitial cystitis. Patient also has high postvoid residual. At that visit patient was started on ciprofloxacin 500 mg twice a day and she was advised to increase fiber and avoid caffeine. Patient denies fever, chills, chest pain, shortness of breath, abdominal pain, melena, hematemesis. Labs are reviewed which shows: WBC is 23.39, hemoglobin 12.2, hematocrit 35.8, platelets 346, sodium 130, potassium 4.2, chloride 96, carbon dioxide 24, anion gap 10, BUN 16, creatinine 0.83, GFR 63.4, AST 18, ALT 11, alkaline phosphatase 60, troponin 0.15, albumin 3.4, globulin 3.5, lipase 40, urine analysis shows cloudy urine with 1+ protein, trace glucose, trace ketones, 3+ blood, positive nitrates, 2+ leukocyte esterase, over 30 RBCs 4+ bacteria, 5-10 epithelial cells which is not a clean- catch. Abdomen CT and pelvis shows progression of the right ureteral calculus now in the mid right ureter. There is also apparent decreased size in comparison to prior. Severe right hydroureteronephrosis. The degree of perinephritic fluid is new from prior and suggest fornical rupture. Please correlate with urine analysis to exclude a superimposed infection. Bilateral nonobstructing hydronephrosis with a dominant calculus of the left measuring 9 mm. Significant volume overload evidenced by the degree of body wall edema and diffuse mesenteric as omental infiltration. Exam decision was made to admit patient to [facility] on telemetry for further evaluation and treatment of nephrolithiasis, sepsis and urinary tract infection. Allergies Allergy/AdvReac Type Severity Reaction Status Date / Time Sulfa (Sulfonamide Allergy Intermediate Rash Verified 10/28/19 14:49 Antibiotics) mirabegron [From Myrbetriq] AdvReac Intermediate hypertensio Verified 10/28/19 14:49 n nicotine AdvReac Mild PATCH-SKIN Verified 10/28/19 14:49 IRRITATION shrimp AdvReac Mild Photosensit Verified 10/28/19 15:03 ivity Home Medications Home Medications Medication Instructions Recorded Confirmed Type Centrum Silver Women 1 tab PO QAM 07/06/18 10/28/19 History latanoprost 1 drp OPB HS 07/06/18 10/28/19 History atorvastatin 20 mg PO QAM 09/05/19 10/28/19 History cholecalciferol (vitamin D3) 50 mcg PO QAM 09/05/19 10/28/19 History [Vitamin D3] duloxetine 20 mg PO QAM 09/05/19 10/28/19 History prednisone 10 mg PO QAM 09/05/19 10/28/19 History sulfasalazine 500 mg PO TID 09/05/19 10/28/19 History nicotine 7 mg TRANSDERMAL QAM #0 ea 09/16/19 10/28/19 Rx melatonin 5 mg PO HS 09/28/19 10/28/19 History polyethylene glycol 3350 [Miralax] 17 g PO QAM 09/28/19 10/28/19 History acetaminophen [Tylenol] 325 mg PO Q6H PRN #0 tab 10/02/19 10/28/19 Rx aspirin [Ecotrin Low Strength] 81 mg PO BID #60 tab 10/02/19 10/28/19 Rx lisinopril 20 mg PO QAM #30 tab 10/02/19 10/28/19 Rx sodium chloride 1 g PO BID #28 tab 10/02/19 10/28/19 Rx tamsulosin 0.4 mg PO HS #30 cap 10/02/19 10/28/19 Rx ciprofloxacin HCl 500 mg tablet 500 mg PO BID 7 Days #14 tab 10/28/19 10/28/19 Rx ondansetron HCl 4 mg tablet 4 mg PO Q8H PRN #30 tab 10/28/19 10/28/19 Rx Past Med/Surg History Medical History Anxiety (Chronic) Decubitus ulcer of sacral region, unstageable Depression (Chronic) Glaucoma (Chronic) Hearing deficit (Chronic) Hyperlipidemia (Chronic) Hypertension Kidney stones (Chronic) Osteoarthritis (Chronic) Rheumatoid arthritis (Chronic) Tobacco use Urinary incontinence Surgical History Hip fracture requiring operative repair History of cataract surgery (Resolved) left History of colonoscopy (Resolved) History of lithotripsy (Resolved) x 2 History of tooth extraction (Resolved) Nausea and vomiting after administration of anesthetic agent Family History Other No pertinent family history in first degree relatives Social History Preferred Language: Emirati Communication Ability: Effective Visual Impairment: No Limitations Noc Analyst Required: No Beliefs That Will Affect Care: None marital status: / Current Living Situation: Alone Feels Safe at Home: Yes Safety Concerns: Feels Safe At This Time Smoking Status: Former smoker Tobacco Type: cigarettes ; Cigarettes Per Day: 1/2 ppd ; Do You Dip or Chew Tobacco: No ; Second Hand Exposure: No ; Tobacco Cessation Education Requested by Patient: No Hx Alcohol Use: No Hx Substance Use: No Review of Systems Review of Systems: All systems reviewed & are unremarkable except as noted in HPI & below Physical Exam Constitutional: WD/WN, vitals as above well developed and + ill appearing Eyes: PERRL, conjunctivae normal, anicteric sclerae ENMT: Ears: + hearing impairment Mouth: + dentures Mallampati Class: II Neck: trachea midline, no thyromegaly normal visual inspection Respiratory: normal respiratory effort, lungs clear to auscultation normal respiratory effort Auscultation: lungs clear to auscultation bilaterally Cardiovascular: Rate/Rhythm: regular rate and regular rhythm Heart Sounds: normal S1 and normal S2 Palpation: + palpable S3 Vessels: dorsalis pedis pulses present Gastrointestinal (Abdomen): normal bowel sounds, soft, nontender, no hepatosplenomegaly Musculoskeletal: no cyanosis or clubbing, extremities motor strength 5/5 Skin: no rashes, warm and dry Neurologic: patellar DTR's 2+ bilat, sensation intact Psychiatric: A+Ox3, euthymic affect Lymphatic: no cervical or axillary lymphadenopathy Results & Data Vital Signs (Past 12 Hours) Vital Signs Temp Pulse Pulse Resp BP BP Pulse Ox 10/28/19 14:53 37.8 C H 119 H 20 162/62 H 93 10/28/19 14:30 111 H 19 179/77 H 91 10/28/19 14:02 109 H 19 91 10/28/19 14:01 104 H 22 204/89 H 94 10/28/19 14:00 104 H 26 H 78 L 10/28/19 13:31 108 H 19 98 10/28/19 13:30 104 H 23 229/104 H 94 10/28/19 13:01 97 H 24 97 10/28/19 13:00 98 H 25 H 200/90 H 99 10/28/19 12:38 96 H 23 99 10/28/19 12:30 96 H 23 199/85 H 99 10/28/19 12:21 199/81 H 10/28/19 12:13 90 18 207/81 H 94 10/28/19 12:06 93 10/28/19 11:05 36.3 C L 93 H 20 181/71 H 99 Code Status & VTE Plan Code Status Full code VTE Prophylaxis Plan VTE Prophylaxis will be ordered: Yes PG Care Time/CCT Total # of Minutes Spent Total Time Spent with Patient: Total time spent is greater than 50% in coordination of care (as documented) at patient's floor/unit and/or counseling patient: Coding Level of Care Code 08054 Initial Inpt Care Lvl 3 Diagnoses Ureteral obstruction N13.5 Laterality: left Hydronephrosis, right N13.30 UTI (urinary tract infection) N39.0 Hematuria presence: without hematuria Urinary tract infection type: site unspecified Hyponatremia E87.1 Tobacco use Z72.0 Hypertension I10 Hypertension type: essential hypertension Hyperlipidemia E78.5 Hyperlipidemia type: unspecified (1) UTI (urinary tract infection) Hematuria presence: without hematuria Urinary tract infection type: site unspecified Qualified Code(s): N39.0 - Urinary tract infection, site not specified (2) Hyperlipidemia Hyperlipidemia type: unspecified Qualified Code(s): E78.5 - Hyperlipidemia, unspecified (3) Ureteral obstruction Laterality: left Qualified Code(s): N13.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 (4) Hypertension Hypertension type: essential hypertension Qualified Code(s): I10 - Essential (primary) hypertension
--- NOTE | 2019-10-28 15:34 | Emergency Department Note ---
Entered by Harris Montiel acting as a scribe for History of Present Illness General Chief complaint: Kidney Stone Stated complaint: POSSIBLE KIDNEY STONE, SEVERE BACK PAIN Source: patient Limitations: no limitations History of Present Illness Onset (ago): hour(s) 9 Location: right (lower back) Severity: similar to prior episodes Pain Consistency: + constant Maximum Pain Intensity: 6 Current Pain Intensity: 6 Quality: + constant Associated symptoms: + other (dry heaving) Treatments prior to arrival: other (acetaminophen) The patient is a 89 year old female who presents to the Emergency Room with complaints of constant and severe right lower back pain starting 9 hours ago. The patient's son states the patient has had kidney stones before. He states the patient has been dry heaving, but has had no vomiting. The son states the patient had a partial hip replacement a month ago. He states the patient has been vomiting. He states the patient took 500 mg acetaminophen this morning and then another 500 mg about 30 minutes ago. The patient states she did not have a bowel movement yesterday. Patient denies any fevers Home Medications Home Medications Medication Instructions Recorded Confirmed Type Centrum Silver Women 1 tab PO QAM 07/06/18 10/28/19 History latanoprost 1 drp OPB HS 07/06/18 10/28/19 History atorvastatin 20 mg PO QAM 09/05/19 10/28/19 History cholecalciferol (vitamin D3) 50 mcg PO QAM 09/05/19 10/28/19 History [Vitamin D3] duloxetine 20 mg PO QAM 09/05/19 10/28/19 History prednisone 10 mg PO QAM 09/05/19 10/28/19 History sulfasalazine 500 mg PO TID 09/05/19 10/28/19 History nicotine 7 mg TRANSDERMAL QAM #0 ea 09/16/19 10/28/19 Rx melatonin 5 mg PO HS 09/28/19 10/28/19 History polyethylene glycol 3350 [Miralax] 17 g PO QAM 09/28/19 10/28/19 History acetaminophen [Tylenol] 325 mg PO Q6H PRN #0 tab 10/02/19 10/28/19 Rx aspirin [Ecotrin Low Strength] 81 mg PO BID #60 tab 10/02/19 10/28/19 Rx lisinopril 20 mg PO QAM #30 tab 10/02/19 10/28/19 Rx sodium chloride 1 g PO BID #28 tab 10/02/19 10/28/19 Rx tamsulosin 0.4 mg PO HS #30 cap 10/02/19 10/28/19 Rx ciprofloxacin HCl 500 mg tablet 500 mg PO BID 7 Days #14 tab 10/28/19 10/28/19 Rx ondansetron HCl 4 mg tablet 4 mg PO Q8H PRN #30 tab 10/28/19 10/28/19 Rx Allergies Allergy/AdvReac Type Severity Reaction Status Date / Time Sulfa (Sulfonamide Allergy Intermediate Rash Verified 10/28/19 14:49 Antibiotics) [email or web address] [From Myrbetriq] AdvReac Intermediate hypertensio Verified 10/28/19 14:49 n nicotine AdvReac Mild PATCH-SKIN Verified 10/28/19 14:49 IRRITATION shrimp AdvReac Mild Photosensit Verified 10/28/19 15:03 ivity Past Med/Surg History Medical History Anxiety (Chronic) Decubitus ulcer of sacral region, unstageable Depression (Chronic) Glaucoma (Chronic) Hearing deficit (Chronic) Hyperlipidemia (Chronic) Hypertension Kidney stones (Chronic) Osteoarthritis (Chronic) Rheumatoid arthritis (Chronic) Tobacco use Urinary incontinence Surgical History Hip fracture requiring operative repair History of cataract surgery (Resolved) left History of colonoscopy (Resolved) History of lithotripsy (Resolved) x 2 History of tooth extraction (Resolved) Nausea and vomiting after administration of anesthetic agent Family History Other No pertinent family history in first degree relatives Social History Preferred Language: Kitt[place] Communication Ability: Effective Visual Impairment: No Limitations Local [employer] Required: No Beliefs That Will Affect Care: None marital status: / Current Living Situation: Alone Feels Safe at Home: Yes Safety Concerns: Feels Safe At This Time Smoking Status: Former smoker Tobacco Type: cigarettes ; Cigarettes Per Day: 1/2 ppd ; Do You Dip or Chew Tobacco: No ; Second Hand Exposure: No ; Tobacco Cessation Education Requested by Patient: No Hx Alcohol Use: No Hx Substance Use: No Review of Systems See HPI for pertinent positives & negatives. and A total of 10 systems reviewed and were otherwise negative Physical Exam Vital Signs Vital Signs - 24 hr 10/28/19 11:05 10/28/19 12:06 10/28/19 12:13 Temperature 36.3 C L Temperature Source Oral Pulse Rate 93 H Pulse Rate [Finger] 90 Pulse Rate from SpO2 Sensor Pulse Rhythm [Finger] Pulse Strength [Finger] Respiratory Rate 20 18 Respiratory Effort / Characteristics Non-Labored Spontaneous Respiratory Depth Normal Respiratory Pattern Blood Pressure 181/71 H Blood Pressure [Right Arm] 207/81 H Blood Pressure Mean 107 Blood Pressure Mean [Right Arm] 123 Blood Pressure Position [Right Arm] Pulse Oximetry 99 93 94 Oxygen Delivery Method Room Air Room Air Room Air Sepsis Recent Fever Within 48 Hours No Sepsis New/Unexplained Change in Mental Status No Sepsis Action Taken by Nursing No Action Required 10/28/19 12:21 10/28/19 12:30 10/28/19 12:38 Temperature Temperature Source Pulse Rate 96 H 96 H Pulse Rate [Finger] Pulse Rate from SpO2 Sensor 96 H 95 H Pulse Rhythm [Finger] Pulse Strength [Finger] Respiratory Rate 23 23 Respiratory Effort / Characteristics Respiratory Depth Respiratory Pattern Blood Pressure 199/85 H Blood Pressure [Right Arm] 199/81 H Blood Pressure Mean 117 Blood Pressure Mean [Right Arm] 120 Blood Pressure Position [Right Arm] Pulse Oximetry 99 99 Oxygen Delivery Method Sepsis Recent Fever Within 48 Hours Sepsis New/Unexplained Change in Mental Status Sepsis Action Taken by Nursing 10/28/19 13:00 10/28/19 13:01 10/28/19 13:30 Temperature Temperature Source Pulse Rate 98 H 97 H 104 H Pulse Rate [Finger] Pulse Rate from SpO2 Sensor 98 H 97 H 104 H Pulse Rhythm [Finger] Pulse Strength [Finger] Respiratory Rate 25 H 24 23 Respiratory Effort / Characteristics Respiratory Depth Respiratory Pattern Blood Pressure 200/90 H 229/104 H Blood Pressure [Right Arm] Blood Pressure Mean 137 158 Blood Pressure Mean [Right Arm] Blood Pressure Position [Right Arm] Pulse Oximetry 99 97 94 Oxygen Delivery Method Sepsis Recent Fever Within 48 Hours Sepsis New/Unexplained Change in Mental Status Sepsis Action Taken by Nursing 10/28/19 13:31 10/28/19 14:00 10/28/19 14:01 Temperature Temperature Source Pulse Rate 108 H 104 H 104 H Pulse Rate [Finger] Pulse Rate from SpO2 Sensor 104 H 100 H 104 H Pulse Rhythm [Finger] Pulse Strength [Finger] Respiratory Rate 19 26 H 22 Respiratory Effort / Characteristics Respiratory Depth Respiratory Pattern Blood Pressure 204/89 H Blood Pressure [Right Arm] Blood Pressure Mean 116 Blood Pressure Mean [Right Arm] Blood Pressure Position [Right Arm] Pulse Oximetry 98 78 L 94 Oxygen Delivery Method Sepsis Recent Fever Within 48 Hours Sepsis New/Unexplained Change in Mental Status Sepsis Action Taken by Nursing 10/28/19 14:02 10/28/19 14:30 10/28/19 14:53 Temperature 37.8 C H Temperature Source Oral Pulse Rate 109 H 111 H Pulse Rate [Finger] 119 H Pulse Rate from SpO2 Sensor 108 H 111 H Pulse Rhythm [Finger] Regular Pulse Strength [Finger] Normal Respiratory Rate 19 19 20 Respiratory Effort / Characteristics Non-Labored Spontaneous Respiratory Depth Normal Respiratory Pattern Regular Blood Pressure 179/77 H Blood Pressure [Right Arm] 162/62 H Blood Pressure Mean 123 Blood Pressure Mean [Right Arm] 95 Blood Pressure Position [Right Arm] Sitting Pulse Oximetry 91 91 93 Oxygen Delivery Method Room Air Sepsis Recent Fever Within 48 Hours Sepsis New/Unexplained Change in Mental Status Sepsis Action Taken by Nursing Vital signs reviewed. General: Well-appearing elderly female, in no significant distress. HEENT: No scleral icterus, PERRLA, neck supple. Atraumatic. Cardiovascular: Regular rate and rhythm. Systolic murmur. Pulmonary: Clear to auscultation bilaterally, normal work of breathing. Abdomen: Soft, nondistended, positive bowel sounds. Mild right lower abdominal tenderness. Musculoskeletal: Atraumatic, no peripheral edema. No CVA tenderness. Neurologic: Patient awake alert and oriented x 3 Skin: Warm, dry, no rash Course Course 1121: The patient was evaluated in room A10, and a complete history and physical examination were performed. 1308: I spoke to Michelle [facility]. She recommends to stop myrbetriq. 1313: I reevaluated the patient. I updated the patient. 1323: I spoke with Michelle Syed. She states Dr. Evans - Urology, will take the patient to the OR for stent placement. 1326: I discussed the patient's case with Dr. Montilla - [facility]. She will evaluate the patient for further management. Administered Medications Acetaminophen (Tylenol) 650 mg PO Q4H PRN PRN Reason: Pain or Fever Stop: 11/27/19 17:40 Last Admin: 10/29/19 20:15 Dose: 650 mg Documented by: [id number] Admin: 10/28/19 18:20 Dose: 650 mg Documented by: [id number] Atorvastatin [facility] ([facility]) [facility] [place] Stop: 11/27/19 17:59 Last Admin: 10/29/19 08:15 Dose: 20 mg Documented by: [id number] Admin: 10/28/19 19:03 Dose: Not Given Documented by: [id number] Duloxetine HCl (Cymbalta) [facility] [place] Stop: 11/28/19 08:59 Last Admin: 10/29/19 08:15 Dose: 20 mg Documented by: [id number] Heparin Sodium (Porcine) (Heparin Sodium (Porcine)) 5,000 units SC Q12 [facility] Stop: 11/27/19 20:59 Last Admin: 10/29/19 20:08 Dose: 5,000 units Documented by: [id number] Cosigned by: [id number] Admin: 10/29/19 08:17 Dose: 5,000 units Documented by: [id number] Cosigned by: [id number] Admin: 10/28/19 21:28 Dose: 5,000 units Documented by: [id number] Cosigned by: [id number] Ceftriaxone Sodium 2,000 mg/ (Dextrose) 70 mls @ 100 mls/hr IV Q24H [facility]; Protocol Stop: 11/07/19 18:59 Last Infusion: 10/29/19 19:14 Dose: 0 mls/hr Documented by: [id number] Admin: 10/29/19 18:32 Dose: 100 mls/hr Documented by: [id number] Infusion: 10/28/19 19:51 Dose: 0 mls/hr Documented by: [id number] Admin: 10/28/19 19:04 Dose: 100 mls/hr Documented by: [id number] Iothalamate Meglumine (Cysto-Conray Ii) 13 ml INSTIL ONCE [facility] Stop: 11/27/19 16:14 Last Admin: 10/28/19 16:05 Dose: 13 ml Documented by: [id number] Latanoprost (Xalatan Oph) 1 drops OPB HS [facility] Stop: 11/27/19 20:59 Last Admin: 10/29/19 20:08 Dose: 1 drops Documented by: [id number] Admin: 10/28/19 21:28 Dose: 1 drops Documented by: [id number] Multivitamins (Multivitamin Tab) [facility] [place] Stop: 11/28/19 08:59 Last Admin: 10/29/19 08:15 Dose: 1 tab Documented by: [id number] Polyethylene Glycol (Miralax Powder Packet) 17 gm PO QAM [facility] Stop: 11/27/19 17:40 Last Admin: 10/29/19 08:17 Dose: 17 gm Documented by: [id number] Admin: 10/28/19 18:55 Dose: Not Given Documented by: [id number] Prednisone (Prednisone) 10 mg PO [facility] Stop: 11/27/19 18:29 Last Admin: 10/29/19 08:15 Dose: 10 mg Documented by: [id number] Admin: 10/28/19 19:03 Dose: 10 mg Documented by: [id number] Sodium Chloride (Sodium Chloride) 1 gm PO BID [facility] Stop: 11/27/19 20:59 Last Admin: 10/29/19 20:08 Dose: 1 gm Documented by: [id number] Admin: 10/29/19 08:15 Dose: 1 gm Documented by: [id number] Admin: 10/28/19 21:28 Dose: 1 gm Documented by: [id number] Sulfasalazine (Azulfidine Delayed Rel) 500 mg PO TID [facility] Stop: 11/27/19 20:59 Last Admin: 10/29/19 20:07 Dose: 500 mg Documented by: [id number] Admin: 10/29/19 13:47 Dose: 500 mg Documented by: [id number] Admin: 10/29/19 08:15 Dose: 500 mg Documented by: [id number] Admin: 10/28/19 21:28 Dose: 500 mg Documented by: [id number] Tamsulosin HCl (Flomax) 0.4 mg PO HS [facility] Stop: 11/27/19 20:59 Last Admin: 10/29/19 20:07 Dose: 0.4 mg Documented by: [id number] Admin: 10/28/19 21:28 Dose: 0.4 mg Documented by: [id number] Vitamin D (Vitamin D3) 2,[facility] [place] Stop: 11/28/19 08:59 Last Admin: 10/29/19 08:16 Dose: 2,000 units Documented by: [id number] Discontinued Medications Fentanyl Citrate (Fentanyl Citrate) 25 mcg IV NOW STA Stop: 10/28/19 11:29 Last Admin: 10/28/19 12:11 Dose: 25 mcg Documented by: [id number] Hydralazine HCl (Hydralazine Hcl) 10 mg IV NOW STA Stop: 10/28/19 14:11 Last Admin: 10/28/19 14:27 Dose: 10 mg Documented by: [id number] Sodium Chloride (Nss 1000ml) 1,000 mls @ 125 mls/hr IV .Q8H TIA Stop: 11/27/19 11:29 Last Infusion: 10/28/19 18:53 Dose: 0 mls/hr Documented by: [id number] Admin: 10/28/19 12:12 Dose: 125 mls/hr Documented by: [id number] Piperacillin Sod/Tazobactam Sod (Zosyn) 4.5 gm in 120 mls @ 240 mls/hr IV NOW ONE Stop: 10/28/19 13:38 Last Infusion: 10/28/19 14:15 Dose: 0 mls/hr Documented by: [id number] Admin: 10/28/19 13:44 Dose: 240 mls/hr Documented by: [id number] Acetaminophen (Ofirmev) 1,000 mg in 100 mls @ 400 mls/hr IV ONE ONE Stop: 10/28/19 21:14 Last Infusion: 10/28/19 23:01 Dose: 0 mls/hr Documented by: [id number] Admin: 10/28/19 22:46 Dose: 400 mls/hr Documented by: [id number] Miscellaneous (Remove Nicoderm Patch) 1 ea N/A DAILY@0859 [facility] Stop: 11/28/19 08:58 Last Admin: 10/29/19 09:25 Dose: Not Given Documented by: [id number] Nicotine (Nicoderm Cq) 7 mg TD QAM [facility] Stop: 11/27/19 17:59 Last Admin: 10/29/19 09:25 Dose: Not Given Documented by: [id number] Admin: 10/28/19 19:03 Dose: Not Given Documented by: [id number] Ondansetron HCl (Zofran) 4 mg IV NOW STA Stop: 10/28/19 11:29 Last Admin: 10/28/19 12:11 Dose: 4 mg Documented by: [id number] Critical Care Time Critical Care Time: Yes Total Critical Care Time: 30 I have personally spent 30 minutes of critical care time in the direct management of this patient. This includes bedside care, interpretation of diagnostic studies, and testing, discussion with consultants, patient, and family members, and other required patient management activities. This 30 minutes is in excess of all separately billable procedures. Medical Decision Making Differential Diagnosis Differential diagnosis: Etiologies such as shingles, pyelonephritis/UTI, renal colic, appendicitis, diverticulitis, mesenteric ischemia, torsion, aortic pathology, infections, inflammatory bowel disease, bowel obstruction, PUD, biliary pathology, as well as others were entertained. Medical Records Attestation: I reviewed the patient's medical records. Home Medications Current Medication List: was personally reviewed by me Laboratory Data Attestation: I reviewed the patient's lab results. Result diagrams: 10/29/19 07:08 10/29/19 07:08 Lab Results 10/28/19 10/28/19 10/28/19 Range/Units 12:00 12:00 12:00 WBC 23.39 H (4.8-10.8) K/uL RBC 3.51 L (4.2-5.4) M/uL Hgb 12.2 (12.0-16.0) g/dL Hct 35.8 L (37-47) % MCV 102.0 H (80-100) fL MCH 34.8 H (25-34) pg MCHC 34.1 (32-36) g/dL RDW Std Deviation 55.6 H (36.4-46.3) fL RDW Coeff of Chiara 15.0 H (11.5-14.5) % Plt Count 346 (130-400) K/uL MPV 9.0 (7.4-10.4) fL Immature Gran % (Auto) 0.3 % Neut % (Auto) 91.6 % Lymph % (Auto) 1.5 % [place] % (Auto) 6.5 % Eos % (Auto) 0.0 % Baso % (Auto) 0.1 % Immature Gran # (Auto) 0.08 H (0.00-0.02) K/uL Neut # (Auto) 21.42 H (1.4-6.5) K/uL Lymph # (Auto) 0.36 L (1.2-3.4) K/uL [place] # (Auto) 1.51 H (0.11-0.59) K/uL Eos # (Auto) 0.00 (0-0.5) K/uL Baso # (Auto) 0.02 (0-0.2) K/uL Sodium 130 L (136-145) mmol/L Potassium 4.2 (3.5-5.1) mmol/L Chloride 96 L (98-107) mmol/L Carbon Dioxide 24 (21-32) mmol/L Anion Gap 10.0 (3-11) BUN 16 (7-18) mg/dl Creatinine 0.83 (0.6-1.2) mg/dl Est Cr Clr Drug Dosing Not Reportable Est GFR ( Amer) 73.5 Est GFR (Non-Af Amer) 63.4 BUN/Creatinine Ratio 19.3 (10-20) Glucose 167 H (70-99) mg/dl Calcium 9.2 (8.5-10.1) mg/dl Total Bilirubin 0.5 (0.2-1) mg/dl AST 18 (15-37) U/L ALT 11 L (12-78) U/L Alkaline Phosphatase 60 (45-117) U/L Troponin I < 0.015 (0-0.045) ng/ml NT-Pro-B Natriuret Pep (0-1800) pg/ml Total Protein 6.9 (6.4-8.2) gm/dl Albumin 3.4 (3.4-5.0) gm/dl Globulin 3.5 (2.5-4.0) gm/dl Albumin/Globulin Ratio 1.0 (0.9-2) Lipase 40 L (73-393) U/L TSH (0.300-4.500) uIu/ml Urine Color Dark Yellow Urine Appearance Cloudy A (Clear) Urine pH 6.5 (4.5-7.5) Ur Specific [place] 1.019 (1.000-1.030) Urine Protein 1+ H (Negative) Urine Glucose (UA) Trace H (Negative) Urine Ketones Trace H (Negative) Urine Blood 3+ H (Negative) Urine Nitrite Positive A (Negative) Urine Bilirubin Negative (Negative) Urine Urobilinogen Negative (Negative) Ur Leukocyte Esterase 2+ H (Negative) Urine WBC (Auto) >30 H (0-5) /hpf Urine RBC (Auto) >30 H (0-4) /hpf U Hyaline Cast (Auto) 1-5 (0-5) /lpf U Epithel Cells (Auto) 5-10 H (0-5) /lpf Urine Bacteria (Auto) 4+ H (Negative) 10/28/19 Range/Units 12:00 WBC (4.8-10.8) K/uL RBC (4.2-5.4) M/uL Hgb (12.0-16.0) g/dL Hct (37-47) % MCV (80-100) fL MCH (25-34) pg MCHC (32-36) g/dL RDW Std Deviation (36.4-46.3) fL RDW Coeff of Chiara (11.5-14.5) % Plt Count (130-400) K/uL MPV (7.4-10.4) fL Immature Gran % (Auto) % Neut % (Auto) % Lymph % (Auto) % [place] % (Auto) % Eos % (Auto) % Baso % (Auto) % Immature Gran # (Auto) (0.00-0.02) K/uL Neut # (Auto) (1.4-6.5) K/uL Lymph # (Auto) (1.2-3.4) K/uL [place] # (Auto) (0.11-0.59) K/uL Eos # (Auto) (0-0.5) K/uL Baso # (Auto) (0-0.2) K/uL Sodium (136-145) mmol/L Potassium (3.5-5.1) mmol/L Chloride (98-107) mmol/L Carbon Dioxide (21-32) mmol/L Anion Gap (3-11) BUN (7-18) mg/dl Creatinine (0.6-1.2) mg/dl Est Cr Clr Drug Dosing Est GFR ( Amer) Est GFR (Non-Af Amer) BUN/Creatinine Ratio (10-20) Glucose (70-99) mg/dl Calcium (8.5-10.1) mg/dl Total Bilirubin (0.2-1) mg/dl AST (15-37) U/L ALT (12-78) U/L Alkaline Phosphatase (45-117) U/L Troponin I (0-0.045) ng/ml NT-Pro-B Natriuret Pep 1950 H (0-1800) pg/ml Total Protein (6.4-8.2) gm/dl Albumin (3.4-5.0) gm/dl Globulin (2.5-4.0) gm/dl Albumin/Globulin Ratio (0.9-2) Lipase (73-393) U/L TSH 2.020 (0.300-4.500) uIu/ml Urine Color Urine Appearance (Clear) Urine pH (4.5-7.5) Ur Specific [place] (1.000-1.030) Urine Protein (Negative) Urine Glucose (UA) (Negative) Urine Ketones (Negative) Urine Blood (Negative) Urine Nitrite (Negative) Urine Bilirubin (Negative) Urine Urobilinogen (Negative) Ur Leukocyte Esterase (Negative) Urine WBC (Auto) (0-5) /hpf Urine RBC (Auto) (0-4) /hpf U Hyaline Cast (Auto) (0-5) /lpf U Epithel Cells (Auto) (0-5) /lpf Urine Bacteria (Auto) (Negative) Imaging Data Radiologist's Impression: Radiology results as stated below per my review and the radiologist's interpretation: CT abd pelvis wo con CLINICAL HISTORY: 89 years-old Female presenting with R flank pain. TECHNIQUE: Multidetector CT of the abdomen and pelvis was performed without the use of intravenous contrast. IV contrast: None. One or more dose lowering techniques were used consistent with the principles of ALARA (as low as reasonably achievable), including automatic exposure control, mA or kV adjustment to individual patient size, and/or use of iterative reconstruction. COMPARISON: 01/26/2018. CT DOSE (mGy.cm): The estimated cumulative dose is 246.72 mGy.cm. FINDINGS: Pump Mechanic topogram: Orthopedic hardware. Lung bases: Dense mitral annular calcification. Coronary artery calcification. No heart size. No pericardial or pleural effusion. No focal infiltrate or nodule at the lung bases. Liver: Normal morphology. Normal density. Subcentimeter hepatic cyst suggested centrally within the liver. Biliary: No gross biliary ductal dilatation allowing for noncontrast technique. Normal gallbladder. Pancreas: Mild parenchymal atrophy. Spleen: Normal noncontrast appearance. Adrenal glands: Normal noncontrast appearance. Kidneys and ureters: Moderate right perinephric fluid is new from prior exam. Severe pelvocaliectasis of the right kidney and distention of the right ureter to the level of an obstructing mid ureteral calculus measuring 6 mm. This has progressed from prior exam and was previously in the proximal ureter. This calculus also appears to have decreased in size. Additional nonobstructing smaller calculus noted at the lower pole the right kidney. Nonobstructing dom inant 9 mm calculus at the lower pole of the left kidney in addition to a few smaller calculi. No left hydronephrosis. Bladder: Incompletely evaluated secondary to underdistention. No bladder calculi . Pelvic organs: Normal noncontrast appearance. Bowel: Diverticulosis of the upper rectum. Normal appendix. No bowel obstruction. Suboptimal evaluation of the bowel due to diffusely infiltrated mesenteric and omental fat. Peritoneal cavity: Trace abdominopelvic ascites and diffusely infiltrated m esenteric and omental fat. No free intraperitoneal gas. Significant retroperitoneal fluid on the right. Lymph nodes: No gross lymphadenopathy allowing for noncontrast technique. Vasculature: Extensive calcified atherosclerotic plaque throughout the normal caliber abdominal aorta. Ectasia of the bilateral common iliac arteries as on prior exam. Abdominal wall: Moderate body wall edema. Musculoskeletal: Total right hip arthroplasty without gross evidence of complication. Degenerative changes of the pubic symphysis and lumbar spine. Multilevel posterior spondylitic spurring with resultant osseous spinal canal narrowing. IMPRESSION: 1. Progression of the right ureteral calculus now in the mid right ureter. There is also apparent decreased size in comparison to prior. 2. Severe right hydroureteronephrosis. The degree of perinephric fluid is new from prior exam and suggests forniceal rupture. Please correlate with urinalysis to exclude a superimposed infection. 3. Bilateral nonobstructing nephrolithiasis with a dominant calculus on the left measuring 9 mm. 4. Significant volume overload evidenced by the degree of body wall edema and diffuse mesenteric and omental infiltration. 5. Additional findings as above. ACT 112: Negative or not required by law. Electronically signed by: Erik Dowd M.D. 10/28/2019 12:01 PM ECG Data Additional Comments: An order was placed for cardiac monitoring and the patient is found to be in a sinus tachycardia at 114 bpm. Blood Pressure Blood Pressure Findings: Elevated blood pressure Blood Pressure Disposition: further management by hospitalist MDM Narrative This patient was evaluated and appeared to be in no distress. IV access was obtained and laboratory work was drawn. Patient was medicated with IV fentanyl and Zofran. She was hydrated with normal saline solution. CT imaging of the abdomen pelvis was performed and reveals an obstructing ureteral process of the right side. Patient's urinalysis is infected. Patient has a notable WBC at 23.3. Blood cultures were obtained and the patient was medicated with IV Zosyn 4.5 g. Urology was consulted, Dr. Arguelles. He has recommended a Kim catheter which was placed. Patient will be taken for ureteral stenting. She was informed of the plan and agrees. Case was also discussed with the hospitalist service for admission and further management. Impression & Plan Sepsis, Ureteral obstruction, Hydronephrosis, right, UTI (urinary tract infection), Nephrolithiasis Discharge Plan Visit Data *Final* Discharge Date/Time: 10/28/19 14:34 Chief Complaint: Kidney Stone Stated Complaint: POSSIBLE KIDNEY STONE, SEVERE BACK PAIN ED Provider: Anita Mcguire Discharge Problem: Sepsis, Ureteral obstruction, Hydronephrosis, right, UTI (urinary tract infection), Nephrolithiasis Patient Disposition: Still a Patient Discharge Instructions Interventions: ED Discharge Assessment Last Done: 10/28/19 14:34 Discharge Problem: Sepsis Qualifiers: Sepsis type: sepsis due to unspecified organism Sepsis acute organ dysfunction status: unspecified Qualified Code(s): A41.9 - Sepsis, unspecified organism Ureteral obstruction Qualifiers: Laterality: left Qualified Code(s): N13.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 UTI (urinary tract infection) Qualifiers: Urinary tract infection type: site unspecified Hematuria presence: without hematuria Qualified Code(s): N39.0 - Urinary tract infection, site not specified The scribe's documentation has been prepared under my direction and personally reviewed by me in its entirety. I confirm that the note above accurately reflects all work, treatment, procedures, and medical decision making performed by me.
--- NOTE | 2019-10-28 16:00 | Operative Report ---
PG Post Operative Report Pre & Post Diagnosis Operation Date: 10/28/19 15:10 Pre-Op Diagnosis: Hydronephrosis, right Post-Op Diagnosis: Hydronephrosis, right I identified the patient and participated in the time-out.: Yes Procedure Operation Date: 10/28/19 15:10 Actual Procedures p Cystoscopy, Bilateral Stent Placements with retrograde and aspiration of purulent urine - Tejas Arguelles, Surgeon Tejas Arguelles, II, DO [employer] Architect None Estimated Blood Loss 1 Findings Consistent with Post-Op Diagnosis Stent placed in good position. Specimens None Drains 6 Fr Multilength Bilateral 18 Fr Kim Anesthesia Type MAC Complications none Disposition Disposition: Recovery Room Indications Patient with obstruction and sepsis. Risks and benefits discussed at length. Description of Procedure Patient was consented and brought back to the operating room. Patient was placed under anesthesia in the supine position and moved to the dorsal lithotomy position. Patient was prepped and draped in the regular sterile fashion. A time out was completed. A 30degree Cystoscope was placed into the bladder and the entire bladder was examined. The UO's were identified. The left followed by the right UO was cannulized with a catheter and a retrograde pyelogram was completed. A wire was then placed. With the wire in place, a 6 Fr Double J stent was placed. It was confirmed with fluoroscopy. The right renal pelvis was aspirated and purulent urine was discovered. This was sent for microanalysis. With the stent in place, the bladder was flushed. The scope was removed. A 18 Fr Catheter was placed. The patient was cleaned, aroused from anesthesia, and transferred to the pacu in stable condition having tolerated the procedure well with no complications. I was present and participated in all aspects of the procedure. The patient will be monitored in the PACU until transferred. I attest to the content of the Intraoperative Record and any orders documented therein. Any exceptions are noted below.
[2019-10-28] MEDS ORDERED: IOTHALAMATE MEGLUMINE II 17.2% 250 ML VIAL INSTIL SCH (16:15)
--- NOTE | 2019-10-28 16:33 | Anesthesiology Progress Note ---
Date of Service October 28, 2019 Anesthesia Post Procedure Vital Signs Vital Signs: Temp Pulse Pulse Resp BP BP Pulse Ox 10/28/19 16:30 37.8 C H 115 H 20 145/56 H 95 10/28/19 16:20 37.1 C 117 H 18 130/53 L 95 10/28/19 16:10 37.5 C 119 H 16 118/45 L 97 10/28/19 14:53 37.8 C H 119 H 20 162/62 H 93 10/28/19 14:30 111 H 19 179/77 H 91 10/28/19 14:02 109 H 19 91 10/28/19 14:01 104 H 22 204/89 H 94 10/28/19 14:00 104 H 26 H 78 L 10/28/19 13:31 108 H 19 98 10/28/19 13:30 104 H 23 229/104 H 94 10/28/19 13:01 97 H 24 97 10/28/19 13:00 98 H 25 H 200/90 H 99 10/28/19 12:38 96 H 23 99 10/28/19 12:30 96 H 23 199/85 H 99 10/28/19 12:21 199/81 H 10/28/19 12:13 90 18 207/81 H 94 10/28/19 12:06 93 10/28/19 11:05 36.3 C L 93 H 20 181/71 H 99 Pain Intensity Right Flank: Pain Intensity: 6 Transfer of Care Handoff Completed per policy Notes Mental Status: alert / awake / arousable Patient Amnestic to Procedure: Yes Nausea / Vomiting: adequately controlled Pain: adequately controlled Airway Patency, RR, SpO2: stable & adequate BP & HR: stable & adequate Hydration State: stable & adequate Anesthetic Complications: no major complications apparent
--- NOTE | 2019-10-28 17:19 | Fluoroscopy Report ---
FL retrograde includes kub CLINICAL HISTORY: Bilateral retrograde study COMPARISON STUDY: October 28, 2019 FLUOROSCOPY TIME: 64 seconds. NUMBER OF FLUOROSCOPIC IMAGES: 2 FINDINGS: 2 intraoperative fluoroscopic spot images reveal bilateral double pigtail nephroureteral st ents. There is a left renal calculus. There is dilatation of the right renal collecting system. IMPRESSION: Intraoperative fluoroscopic spot images reveal bilateral double pigtail nephroureteral s tents. ACT 112: Negative or not required by law. Electronically signed by: Jeet Marcus M.D. 10/28/2019 5:18 PM
[2019-10-28] MEDS ORDERED: MAGNESIUM HYDROXIDE SUSP 30 ML UDC PO PRN (17:41)
[2019-10-28] MEDS ORDERED: ALUMINUM/MAGNESIUM SUSP 30 ML UDC PO PRN (17:41)
[2019-10-28] MEDS ORDERED: ONDANSETRON INJ 2 MG/ML 2 ML VIAL IV PRN (17:41)
[2019-10-28] MEDS ORDERED: OXYCODONE/ACETAMINOPHEN 5mg/325mg TAB PO PRN (17:41)
[2019-10-28] MEDS: ACETAMINOPHEN 325 MG TAB PO PRN (18:20)
[2019-10-28 18:54] LABS: Thyroid Stimulating Hormone 2.02 uIu/ml (0.300-4.500)
[2019-10-28] MEDS: POLYETHYLENE (MIRALAX) 17 GM PACK PO SCH (18:55)
[2019-10-28] MEDS: NICOTINE 7 MG/24 HR TDSY TD SCH (19:03)
[2019-10-28] MEDS: ATORVASTATIN 20 MG TAB PO SCH (19:03)
[2019-10-28] MEDS: predniSONE 10 MG TABLET PO SCH (19:03)
[2019-10-28] MEDS: cefTRIAXone SODIUM 2,000 MG in DEXTROSE 5% 50 ML IV SCH (19:04)
[2019-10-28] MEDS ORDERED: ASPIRIN 81 MG ECTAB PO SCH (21:00)
[2019-10-28] MEDS ORDERED: ACETAMINOPHEN 1,000 MG/100 ML VIAL IV ONE (21:00)
[2019-10-28] MEDS ORDERED: NON-FORMULARY MEDICATION (Melatonin 5 MG) PO SCH (21:00)
[2019-10-28] MEDS: TAMSULOSIN HCL 0.4 MG CAP PO SCH (21:28)
[2019-10-28] MEDS: sulfaSALAzine 500 MG TABEC PO SCH (21:28)
[2019-10-28] MEDS: HEPARIN SOD 5,000 UNIT/0.5 ML VIAL SC SCH (21:28)
[2019-10-28] MEDS: LATANOPROST 0.005% OP SOLN 2.5 ML BTL OPB SCH (21:28)
[2019-10-28] MEDS: SODIUM CHLORIDE 1 GM TABLET PO SCH (21:28)
--- NOTE | 2019-10-29 07:30 | Hospitalist Progress Note ---
Date of Service October 29, 2019 Assessment & Plan (1) Ureteral obstruction: Ms. Dumont is an 89 year old female with a past medical history of recurrent UTIs, kidney stones, rheumatoid arthritis, hypertension, hyperlipidemia, OA and hyponatremia who presented to [facility] due to feeling weak and dizzy. She was subsequently found to have b/l nephrolithiasis, with the right stone being in the mid right ureter w/severe right hydroureteronephrosis. The CT scan also reported possible forniceal rupture. Sepsis secondary to gram negative bacteremia following cystoscopy/stent placement -source: urinary, in the setting of obstructive R sided kidney stone -s/p cystoscopy and b/l stent placement day 1 -blood cx x2 growing gram negative rods -Urine culture growing E. coli -continue Rocephin 2g IV daily -depending on how patient improves, she will require 7-14 days of antibiotics. Will transition to oral antibiotics when sensitivities returned and she has been afebrile for 48 hours -White cell count elevated at 26, continue to monitor -Last fever at 8 PM on 10/28/2019 -continue to monitor fever curve -Tolerating p.o. intake, not on IV fluids Rheumatoid arthritis -Continue home sulfasalazine and prednisone -Given she is currently hemodynamically stable, will not stress dose with steroids, but consider this if she were to worsen Hyponatremia -Chronic, patient has a history of the same -Sodium 133 today -Continue home management with sodium chloride 1 g p.o. twice daily. Tobacco abuse -Patient states that she does not require nicotine patch, gave up smoking September 14 Hypertension -Patient was hypotensive postoperatively -will hold home lisinopril today, and restart tomorrow Hypercholesterolemia -Continue atorvastatin 20 mg p.o. every morning. -Fasting lipid panel excellent with triglycerides of 72, cholesterol of 149, LDL of 53 and HDL of 82 Depression -Continue home duloxetine Code status: FULL DVT Prophylaxis: SCDs, heparin 5000 mg SQ q12h Disposition: Downgrade from med telemetry to Med/Surg. Will call and update her son, Daniel Dumont, today (2) Hydronephrosis, right: (3) UTI (urinary tract infection): . (4) Hyponatremia: (5) Tobacco use: (6) Hypertension: (7) Hyperlipidemia: Admission and Anticipated Discharge Date Admission Date: October 28, 2019 Supervising Physician Co-Signing Physician Notes Resident Physician Supervision Note: I independently interviewed and examined the patient and verified the price his tory and physical, reviewed labs and image studies, discussed the case with the resident Dr. Velarde and agree with the findings and care plan. Subjective Ms. Dumont reports she feels much better today. She denies any further weakness or dizziness. She states her abdominal pain has resolved, and that she is no longer having fever or chills. She denies nausea or vomiting. She states that she tolerated her breakfast without problems. She was hoping to be discharged today. Review of Systems Constitutional: no fever, no chills, no fatigue and no anorexia Respiratory: no cough Cardiovascular: no chest pain Gastrointestinal: no abdominal pain, no vomiting and no change in bowel habits Physical Exam Constitutional: WD/WN, vitals as above Respiratory: normal respiratory effort, lungs clear to auscultation Cardiovascular: RRR, no murmur, no edema Gastrointestinal (Abdomen): normal bowel sounds, soft, nontender, no hepatosplenomegaly Psychiatric: A+Ox3, euthymic affect Genitourinary: Kim catheter in place Results & Data ([facility]) Vital Signs (Past 12 Hours) Vital Signs Temp Pulse Pulse Resp BP Pulse Ox 10/29/19 07:09 37.0 C 95 H 18 151/70 H 96 10/29/19 07:08 89 10/29/19 03:00 36.7 C 97 H 16 139/68 95 10/29/19 01:08 101 H 10/28/19 23:00 37.6 C H 101 H 20 125/65 96 10/28/19 21:05 37.7 C H 97 H 18 112/61 98 10/28/19 20:00 38.7 C H 107 H 20 81/46 L 95 10/28/19 19:50 114 H Resident Activity Tracking Resident Involvement: Resident Care Provided Care Provided: Adult Hospital Medicine (1) UTI (urinary tract infection) Hematuria presence: without hematuria Urinary tract infection type: site unspecified Qualified Code(s): N39.0 - Urinary tract infection, site not specified (2) Hyperlipidemia Hyperlipidemia type: unspecified Qualified Code(s): E78.5 - Hyperlipidemia, unspecified (3) Ureteral obstruction Laterality: left Qualified Code(s): N13.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 (4) Hypertension Hypertension type: essential hypertension Qualified Code(s): I10 - Essential (primary) hypertension
[2019-10-29 08:00] LABS: Hematocrit (blood only) 34.5 % (37-47); Hemoglobin 11.7 g/dL (12.0-16.0); Mean Corpuscular Hgb Conc 33.9 g/dL (32-36); Mean Corpuscular Volume 100.3 fL (80-100); Platelet Count 324 K/uL (130-400); RDW Coefficient of Variation 15.5 % (11.5-14.5); RDW Standard Deviation 57.3 fL (36.4-46.3); Red Blood Count 3.44 M/uL (4.2-5.4)
[2019-10-29 08:15] LABS: Estimated Average Glucose 80 mg/dl; Hemoglobin A1C 4.4 % (4.5-5.6)
[2019-10-29] MEDS: MULTIVITAMIN TAB PO SCH (08:15)
[2019-10-29] MEDS: predniSONE 10 MG TABLET PO SCH (08:15)
[2019-10-29] MEDS: SODIUM CHLORIDE 1 GM TABLET PO SCH ×2 (08:15→20:08)
[2019-10-29] MEDS: sulfaSALAzine 500 MG TABEC PO SCH ×3 (08:15→20:07)
[2019-10-29] MEDS: ATORVASTATIN 20 MG TAB PO SCH (08:15)
[2019-10-29] MEDS: DULOXETINE HCL 20 MG CAP PO SCH (08:15)
[2019-10-29] MEDS: CHOLECALCIFEROL 1,000 UNITS 25 MCG TAB PO SCH (08:16)
[2019-10-29] MEDS: POLYETHYLENE (MIRALAX) 17 GM PACK PO SCH (08:17)
[2019-10-29] MEDS: HEPARIN SOD 5,000 UNIT/0.5 ML VIAL SC SCH ×2 (08:17→20:08)
[2019-10-29 08:35] LABS: Albumin Level 2.6 gm/dl (3.4-5.0); BUN Creatinine Ratio 25.6 (10-20); Basophils # (auto) 0.02 K/uL (0-0.2); Basophils % (auto) 0.1 %; Calcium 8.5 mg/dl (8.5-10.1); Creatinine Clr Calc Pharmacy 38.2 ml/min; Eosinophils # (auto) 0.01 K/uL (0-0.5); Est GFR (African American) 74.6; Est GFR (Non-African American) 64.3; Immature Granulocytes % (auto) 0.4 %; Lymphocytes # (auto) 1.41 K/uL (1.2-3.4); Lymphocytes % (auto) 5.3 %; Monocytes # (auto) 1.37 K/uL (0.11-0.59); Monocytes % (auto) 5.2 %; Neutrophils # (auto) 23.69 K/uL (1.4-6.5); Potassium 4.1 mmol/L (3.5-5.1)
[2019-10-29 08:41] LABS: Albumin Globulin Ratio 0.8 (0.9-2); Bilirubin,Total 0.3 mg/dl (0.2-1); Globulin 3.2 gm/dl (2.5-4.0); Total Protein 5.8 gm/dl (6.4-8.2)
[2019-10-29] MEDS: NICOTINE 7 MG/24 HR TDSY TD SCH (09:25)
--- NOTE | 2019-10-29 14:25 | Urology Progress Note ---
Date of Service October 29, 2019 Assessment & Plan (1) Sepsis: Patient is being supportive care with IV antibiotics and close monitoring for gram-negative sepsis likely from pyelonephritis. Patient has a long history of chronic obstruction/hydronephrosis of the right kidney. This kidney is previously assessed It has been a well-known issue with obstructive problems in the past. Has previously had extremely large stones with major obstruction. Patient has been having worsening and increasing symptoms and was actually seen as an outpatient earlier in the week. Developed the acute illness and was found to have significant Amrik on the right side. Stents are in place. Will need to undergo further assessment with ureteroscopy to fully assess the right side. Patient does have known stones on both sides with much larger ones on the left. Unsure if patient having stricture or some other obstructive issue. Discussed possibility of reflux with pyelonephritis. Agree with IV antibiotics. Will need to await full culture. Would ideally have patient's vitals and lab work improved. Patient is very motivated to go home. Will need to assess clinically to determine. May end up needing IV antibiotics depending on culture results. This would necessitate management and likely venous access such as PICC line (2) Hydronephrosis, right: See above (3) UTI (urinary tract infection): See above Subjective Postop day 1 status post bilateral stent placement Patient had extremely purulent urine in the right renal pelvis. This was sent separately for assessment. Patient has positive gram-negative bacilli on blood culture. Has an E. coli growing in the urine. Patient has long history of chronic hydronephrosis on the right. Pain is controlled. No other major concerns or bother. Nausea and vomiting has reduced. Patient's fevers and chills have stopped as well. Patient is overall feeling weak but is hoping to go home. No other major changes or issues. Is tolerating bilateral stents and catheter for complete drainage. Review of Systems Review of Systems: All systems reviewed & are unremarkable except as noted in HPI & below Physical Exam Physical Exam: General: Alert in no acute distress.Advanced age. HEENT: Normocephalic Atraumatic. Inspection normal. Cranial Nerves 2-12 Grossly intact. Normal inspection of face. Normal inspection of neck. Psychologic: Normal affect. Respiratory: Nonlabored. No use of accessory muscles. No tachypnea or dyspnea. Cardiovascular: No tachycardia Skin: Crafton and Dry. No rashes or visible lesions. Extremities/Lymphatics: No edema Abdomen: Soft Non-distended. No rebound or guarding. : Kim in place draining clear yellow urine Results & Data Vital Signs (Past 12 Hours) Vital Signs Temp Pulse Pulse Resp BP BP Pulse Ox 10/29/19 11:00 36.8 C 98 H 18 146/71 H 94 10/29/19 07:09 37.0 C 95 H 18 151/70 H 96 10/29/19 07:08 89 10/29/19 03:00 36.7 C 97 H 16 139/68 95 PG Care Time/CCT Total # of Minutes Spent Total Time Spent with Patient: Total time spent is greater than 50% in coordination of care (as documented) at patient's floor/unit and/or counseling patient: Coding Level of Care Code 26754 Inpt Consult Level 5 Diagnoses Sepsis A41.9 Sepsis acute organ dysfunction status: unspecified Sepsis type: sepsis due to unspecified organism Hydronephrosis, right N13.30 UTI (urinary tract infection) N39.0 Hematuria presence: without hematuria Urinary tract infection type: site unspecified (1) UTI (urinary tract infection) Hematuria presence: without hematuria Urinary tract infection type: site unspecified Qualified Code(s): N39.0 - Urinary tract infection, site not specified (2) Sepsis Sepsis acute organ dysfunction status: unspecified Sepsis type: sepsis due to unspecified organism Qualified Code(s): A41.9 - Sepsis, unspecified organism
[2019-10-29] MEDS: cefTRIAXone SODIUM 2,000 MG in DEXTROSE 5% 50 ML IV SCH (18:32)
[2019-10-29] MEDS: TAMSULOSIN HCL 0.4 MG CAP PO SCH (20:07)
[2019-10-29] MEDS: LATANOPROST 0.005% OP SOLN 2.5 ML BTL OPB SCH (20:08)
[2019-10-29] MEDS: ACETAMINOPHEN 325 MG TAB PO PRN (20:15)
[2019-10-30] MEDS: ACETAMINOPHEN 325 MG TAB PO PRN ×2 (00:09→10:39)
[2019-10-30 07:16] LABS: Basophils # (auto) 0.04 K/uL (0-0.2); Basophils % (auto) 0.3 %; Eosinophils # (auto) 0.04 K/uL (0-0.5); Eosinophils % (auto) 0.3 %; Hematocrit (blood only) 32.7 % (37-47); Hemoglobin 11.1 g/dL (12.0-16.0); Immature Granulocytes # (auto) 0.05 K/uL (0.00-0.02); Immature Granulocytes % (auto) 0.3 %; Lymphocytes # (auto) 0.95 K/uL (1.2-3.4); Lymphocytes % (auto) 6.3 %; Mean Corpuscular Hemoglobin 34.4 pg (25-34); Mean Corpuscular Hgb Conc 33.9 g/dL (32-36); Mean Corpuscular Volume 101.2 fL (80-100); Mean Platelet Volume 8.9 fL (7.4-10.4); Monocytes # (auto) 1.02 K/uL (0.11-0.59); Monocytes % (auto) 6.7 %; Neutrophils # (auto) 13.07 K/uL (1.4-6.5); Neutrophils % (auto) 86.1 %; Platelet Count 303 K/uL (130-400); RDW Coefficient of Variation 15.2 % (11.5-14.5); RDW Standard Deviation 56.1 fL (36.4-46.3); Red Blood Count 3.23 M/uL (4.2-5.4); White Blood Count 15.17 K/uL (4.8-10.8)
--- NOTE | 2019-10-30 07:39 | Hospitalist Progress Note ---
Date of Service October 30, 2019 Assessment & Plan (1) Ureteral obstruction: Ms. Dumont is an 89 year old female with a past medical history of recurrent UTIs, kidney stones, rheumatoid arthritis, hypertension, hyperlipidemia, OA and hyponatremia who presented to [facility] due to feeling weak and dizzy. She was subsequently found to have b/l nephrolithiasis, with the right stone being in the mid right ureter w/severe right hydroureteronephrosis. The CT scan also reported possible forniceal rupture. Sepsis secondary to gram negative bacteremia -source: urinary, in the setting of obstructive R sided kidney stone -s/p cystoscopy and b/l stent placement day 2 -blood cx x2 growing gram negative rods -Urine culture growing pansensitive E. coli -continue Rocephin 2g IV daily - she will require 14 days of antibiotics. -White cell count decreased from 26 to 15 -Last fever at 8 PM on 10/28/2019 - transition to oral ciprofloxacin tomorrow AM as this will have been 48h afebrile -anticipate d/c tomorrow w/urology follow up for repeat imaging and outpatient cystoscopy -Tolerating p.o. intake, not on IV fluids Rheumatoid arthritis -Continue home sulfasalazine and prednisone Hyponatremia -Chronic, patient has a history of the same -Sodium 132 today -Continue home management with sodium chloride 1 g p.o. twice daily. Tobacco abuse -Patient states that she does not require nicotine patch, gave up smoking September 14 Hypertension -Patient was hypotensive postoperatively, but pressures have remained normal- high since -restart home lisinopril today Hypercholesterolemia -Continue atorvastatin 20 mg p.o. every morning. -Fasting lipid panel excellent with triglycerides of 72, cholesterol of 149, LDL of 53 and HDL of 82 Depression -Continue home duloxetine Code status: FULL DVT Prophylaxis: SCDs, heparin 5000 mg SQ q12h Disposition: Remains on med/surg. Son, Daniel Dumont, updated. Anticipate d/c tomorrow (2) Hydronephrosis, right: (3) UTI (urinary tract infection): (4) Hyponatremia: (5) Tobacco use: (6) Hypertension: (7) Hyperlipidemia: Admission and Anticipated Discharge Date Admission Date: October 28, 2019 Supervising Physician Co-Signing Physician Notes Resident Physician Supervision Note: I independently interviewed and examined the patient and verified the price his tory and physical, reviewed labs and image studies, discussed the case with the resident Dr. Velarde and agree with the findings and care plan. Subjective Ms. Dumont reports she feels well today. She denies any fever, chills, abdominal pain, nausea or vomiting. She once again expresses her desire to be discharged home. Review of Systems Constitutional: no fever, no chills and no fatigue Respiratory: no cough Cardiovascular: no chest pain Gastrointestinal: no abdominal pain Physical Exam Constitutional: WD/WN, vitals as above Respiratory: normal respiratory effort, lungs clear to auscultation Cardiovascular: RRR, no murmur, no edema Gastrointestinal (Abdomen): normal bowel sounds, soft, nontender, no hepatosplenomegaly Psychiatric: A+Ox3, euthymic affect Results & Data ([facility]) Vital Signs (Past 12 Hours) Vital Signs Temp Pulse Resp BP Pulse Ox 10/29/19 23:10 37.4 C 107 H 18 132/69 93 Resident Activity Tracking Resident Involvement: Resident Care Provided Care Provided: Adult Hospital Medicine (1) UTI (urinary tract infection) Hematuria presence: without hematuria Urinary tract infection type: site unspecified Qualified Code(s): N39.0 - Urinary tract infection, site not specified (2) Hyperlipidemia Hyperlipidemia type: unspecified Qualified Code(s): E78.5 - Hyperlipidemia, unspecified (3) Ureteral obstruction Laterality: left Qualified Code(s): N13.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 (4) Hypertension Hypertension type: essential hypertension Qualified Code(s): I10 - Essential (primary) hypertension
[2019-10-30 07:41] LABS: Albumin Level 2.4 gm/dl (3.4-5.0); BUN Creatinine Ratio 28.2 (10-20); Calcium 8.3 mg/dl (8.5-10.1); Creatinine Clr Calc Pharmacy 41.8 ml/min; Est GFR (African American) 83.1; Est GFR (Non-African American) 71.7; Potassium 3.8 mmol/L (3.5-5.1)
[2019-10-30 07:44] LABS: Albumin Globulin Ratio 0.8 (0.9-2); Bilirubin,Total 0.4 mg/dl (0.2-1); Globulin 3.2 gm/dl (2.5-4.0); Total Protein 5.6 gm/dl (6.4-8.2)
[2019-10-30] MEDS: MULTIVITAMIN TAB PO SCH (08:49)
[2019-10-30] MEDS: HEPARIN SOD 5,000 UNIT/0.5 ML VIAL SC SCH ×2 (08:49→20:45)
[2019-10-30] MEDS: DULOXETINE HCL 20 MG CAP PO SCH (08:49)
[2019-10-30] MEDS: SODIUM CHLORIDE 1 GM TABLET PO SCH ×2 (08:49→20:46)
[2019-10-30] MEDS: CHOLECALCIFEROL 1,000 UNITS 25 MCG TAB PO SCH (08:49)
[2019-10-30] MEDS: POLYETHYLENE (MIRALAX) 17 GM PACK PO SCH (08:49)
[2019-10-30] MEDS: sulfaSALAzine 500 MG TABEC PO SCH ×3 (08:49→20:45)
[2019-10-30] MEDS: lisinopriL 20 MG TAB PO SCH (08:49)
[2019-10-30] MEDS: predniSONE 10 MG TABLET PO SCH (08:49)
[2019-10-30] MEDS: ATORVASTATIN 20 MG TAB PO SCH (08:49)
[2019-10-30] MEDS ORDERED: ACETAMINOPHEN 500 MG TAB PO PRN (13:18)
[2019-10-30] MEDS: TRAMADOL HCL 50 MG TABLET PO PRN ×2 (13:43→20:57)
[2019-10-30] MEDS ORDERED: OR MISCELLANEOUS MED XX ONE (14:06)
[2019-10-30] MEDS ORDERED: MELATONIN PO PRN (14:34)
[2019-10-30] MEDS: cefTRIAXone SODIUM 2,000 MG in DEXTROSE 5% 50 ML IV SCH (18:41)
[2019-10-30] MEDS: TAMSULOSIN HCL 0.4 MG CAP PO SCH (20:45)
[2019-10-30] MEDS: LATANOPROST 0.005% OP SOLN 2.5 ML BTL OPB SCH (20:46)
[2019-10-30] MEDS ORDERED: MELATONIN PO SCH (21:00)
[2019-10-31 05:58] LABS: Basophils # (auto) 0.02 K/uL (0-0.2); Basophils % (auto) 0.2 %; Eosinophils # (auto) 0.03 K/uL (0-0.5); Eosinophils % (auto) 0.3 %; Hematocrit (blood only) 32.1 % (37-47); Hemoglobin 10.8 g/dL (12.0-16.0); Immature Granulocytes # (auto) 0.02 K/uL (0.00-0.02); Immature Granulocytes % (auto) 0.2 %; Lymphocytes # (auto) 1.34 K/uL (1.2-3.4); Lymphocytes % (auto) 14.6 %; Mean Corpuscular Hemoglobin 34.5 pg (25-34); Mean Corpuscular Hgb Conc 33.6 g/dL (32-36); Mean Corpuscular Volume 102.6 fL (80-100); Mean Platelet Volume 9.2 fL (7.4-10.4); Monocytes # (auto) 0.86 K/uL (0.11-0.59); Monocytes % (auto) 9.4 %; Neutrophils # (auto) 6.92 K/uL (1.4-6.5); Neutrophils % (auto) 75.3 %; Platelet Count 310 K/uL (130-400); RDW Coefficient of Variation 15.1 % (11.5-14.5); RDW Standard Deviation 56.4 fL (36.4-46.3); Red Blood Count 3.13 M/uL (4.2-5.4); White Blood Count 9.19 K/uL (4.8-10.8)
--- NOTE | 2019-10-31 08:33 | Anesthesiology Progress Note ---
Date of Service October 31, 2019 Anesthesia Post Procedure Vital Signs Vital Signs: Temp Pulse Resp BP BP Pulse Ox 10/31/19 07:38 36.8 C 90 16 176/70 H 94 10/30/19 23:30 37.1 C 94 H 16 158/56 H 93 10/30/19 15:35 36.8 C 91 H 18 136/69 93 Pain Intensity Right Flank: Pain Intensity: 5 Right Hip: Pain Intensity: 5 Notes Mental Status: alert / awake / arousable and participated in evaluation Patient Amnestic to Procedure: Yes Nausea / Vomiting: adequately controlled Pain: adequately controlled Airway Patency, RR, SpO2: stable & adequate BP & HR: stable & adequate Hydration State: stable & adequate Anesthetic Complications: no major complications apparent and Pt Satisfied with anesthetic care
[2019-10-31] MEDS: POLYETHYLENE (MIRALAX) 17 GM PACK PO SCH (08:48)
[2019-10-31] MEDS: sulfaSALAzine 500 MG TABEC PO SCH (08:50)
[2019-10-31] MEDS: DULOXETINE HCL 20 MG CAP PO SCH (08:50)
[2019-10-31] MEDS: HEPARIN SOD 5,000 UNIT/0.5 ML VIAL SC SCH (08:50)
[2019-10-31] MEDS: predniSONE 10 MG TABLET PO SCH (08:51)
[2019-10-31] MEDS: CHOLECALCIFEROL 1,000 UNITS 25 MCG TAB PO SCH (08:51)
[2019-10-31] MEDS: SODIUM CHLORIDE 1 GM TABLET PO SCH (08:51)
[2019-10-31] MEDS: ATORVASTATIN 20 MG TAB PO SCH (08:51)
[2019-10-31] MEDS: MULTIVITAMIN TAB PO SCH (08:51)
[2019-10-31] MEDS: lisinopriL 20 MG TAB PO SCH (08:52)
[2019-10-31] MEDS ORDERED: CIPROFLOXACIN 500 MG TAB PO SCH (09:00)
--- NOTE | 2019-10-31 10:21 | Discharge Summary ---
Date of Service October 31, 2019 Admission HPI Per Admitting Provider The patient is a 89 years old female with past medical history of recurrent urinary tract infection, hearing deficit, kidney stones, history of lithotripsy, osteoarthritis, hypertension, hyperlipidemia, tobacco use, hyponatremia, right hip hemiarthroplasty, who was brought to the emergency room with a complaint of feeling weak and dizzy for the past several days. Patient was seen in the urology clinic on October 26, 2019 as a follow-up for her chronic urinary issues and considerable leakage due to stress/urge incontinence and interstitial cystitis. Patient also has high postvoid residual. At that visit patient was started on ciprofloxacin 500 mg twice a day and she was advised to increase fiber and avoid caffeine. Patient denies fever, chills, chest pain, shortness of breath, abdominal pain, melena, hematemesis. Labs are reviewed which shows: WBC is 23.39, hemoglobin 12.2, hematocrit 35.8, platelets 346, sodium 130, potassium 4.2, chloride 96, carbon dioxide 24, anion gap 10, BUN 16, creatinine 0.83, GFR 63.4, AST 18, ALT 11, alkaline phosphatase 60, troponin 0.15, albumin 3.4, globulin 3.5, lipase 40, urine analysis shows cloudy urine with 1+ protein, trace glucose, trace ketones, 3+ blood, positive nitrates, 2+ leukocyte esterase, over 30 RBCs 4+ bacteria, 5-10 epithelial cells which is not a clean- catch. Abdomen CT and pelvis shows progression of the right ureteral calculus now in the mid right ureter. There is also apparent decreased size in comparison to prior. Severe right hydroureteronephrosis. The degree of perinephritic fluid is new from prior and suggest fornical rupture. Please correlate with urine analysis to exclude a superimposed infection. Bilateral nonobstructing hydronephrosis with a dominant calculus of the left measuring 9 mm. Significant volume overload evidenced by the degree of body wall edema and diffuse mesenteric as omental infiltration. Exam decision was made to admit patient to [facility] on telemetry for further evaluation and treatment of nep hrolithiasis, sepsis and urinary tract infection. Admission Exam Per Admitting Provider Constitutional: WD/WN, vitals as above well developed and + ill appearing Eyes: PERRL, conjunctivae normal, anicteric sclerae ENMT: Ears: + hearing impairment Mouth: + dentures Mallampati Class: II Neck: trachea midline, no thyromegaly normal visual inspection Respiratory: normal respiratory effort, lungs clear to auscultation normal respiratory effort Auscultation: lungs clear to auscultation bilaterally Cardiovascular: Rate/Rhythm: regular rate and regular rhythm Heart Sounds: normal S1 and normal S2 Palpation: + palpable S3 Vessels: dorsalis pedis pulses present Gastrointestinal (Abdomen): normal bowel sounds, soft, nontender, no hepatosplenomegaly Musculoskeletal: no cyanosis or clubbing, extremities motor strength 5/5 Skin: no rashes, warm and dry Neurologic: patellar DTR's 2+ bilat, sensation intact Psychiatric: A+Ox3, euthymic affect Lymphatic: no cervical or axillary lymphadenopathy Principal Diagnosis UTI, sepsis Discharge Exam General: Alert, oriented. No acute distress, resting comfortably in bed. Thin Skin: No noted rashes or bruises Psych: Appropriate mood and affect Neuro: No gross deficits HEENT: NC/AT Chest: Nontender to palpation. CV: RRR, Normal s1, s2. No murmurs appreciated Resp: Breath sounds clear bilaterally, no increased effort of breathing. No crackles/rhonchi/rales. Abdomen: Soft, nontender, nondistended. No guarding. No organomegaly appreciated. Extremities: No edema in lower extremities bilaterally. Discharge Data Allergies Allergy/AdvReac Type Severity Reaction Status Date / Time Sulfa (Sulfonamide Allergy Intermediate Rash Verified 10/28/19 14:49 Antibiotics) mirabegron [From Myrbetriq] AdvReac Intermediate hypertensio Verified 10/28/19 14:49 n nicotine AdvReac Mild PATCH-SKIN Verified 10/28/19 14:49 IRRITATION shrimp AdvReac Mild Photosensit Verified 10/28/19 15:03 ivity Consultations 10/28/19 13:31 ED Decision to Admit Stat Procedures Performed Operation Date: 10/28/19 15:10 Actual Procedures p Cystoscopy, Bilateral Stent Placements(Bilateral) - Tejas Arguelles DO Ordered Studies 10/28/19 11:28 CT abd pelvis wo con Stat 10/28/19 15:00 FL retrograde includes kub Routine Hospital Course (1) Ureteral obstruction: Ms. Dumont is an 89yo female with a PMhx of recurrent UTIs, kidney stones, rheumatoid arthritis, hypertension, hyperlipidemia, OA and chronic hyponatremia who presented to [facility] due to weakness and dizziness. She was subsequently found to have b/l nephrolithiasis, with the right stone being in the mid right ureter w/severe right hydroureteronephrosis. The CT scan also reported possible forniceal rupture. Pt admitted on Oct 28 2019 and discharged on Oct 31 2019. Sepsis secondary to gram negative bacteremia -source: urinary, in the setting of obstructive R sided kidney stone -s/p cystoscopy and b/l stent placement on Oct 28 2019 -blood cx x2 grew gram negative rods -Urine culture growing pansensitive E. coli -Treated with Rocephin 2g IV daily for 2 days, one dose of PO ciprofloxacin on day of discharge and discharged with 11 days (23 pills) of PO cefdinir, for a t otal of 14 days of antibiotics. -White cell count decreased from 26 to normal range on day of discharge. -Last fever at 8 PM on 10/28/2019 - had been 48hr afebrile on day of discharge -Tolerating p.o. intake -continue home tamsulosin 0.4mg po hs -discharge with urology follow up for repeat imaging and outpatient cystoscopy--Dr. Holman's office to call on nov 01 to set up appt. -f/u pcp appt scheduled for nov 03 Rheumatoid arthritis -Continue home sulfasalazine and prednisone Hyponatremia -Chronic, patient has a history of the same -Sodium 132 on day of discharge. -Continue home management with sodium chloride 1 g p.o. twice daily. Tobacco abuse -Patient states that she does not require nicotine patch, gave up smoking September 14 Hypertension -Patient was hypotensive postoperatively, but pressures have remained normal- high since -continue home lisinopril 20mg Hypercholesterolemia -Continue atorvastatin 20 mg p.o. every morning. -Fasting lipid panel with triglycerides of 72, cholesterol of 149, LDL of 53 and HDL of 82 Depression -Continue home duloxetine (2) Hydronephrosis, right: (3) UTI (urinary tract infection): (4) Hyponatremia: (5) Tobacco use: (6) Hypertension: (7) Hyperlipidemia: Total Time Total Time Spent Total Time Spent (In Minutes): <30 Discharge Plan Discharge Items Patient Disposition: Home - Self-Care Reason For Visit: UTI,SEPSIS Discharge Diagnosis: UTI with septicemia Activity: Per Instructions section Non-emergency contact: Primary Care Provider and Urologist Call non-emergency contact if: your symptoms worsen and your pain is worsening Follow-up/Referrals: Tejas Arguelles, [Physician] - (DR SEPULVEDA'S OFFICE WILL CALL YOU ON NOVEMBER 01, TO SET UP AN APPOINTMENT) Ben Schmidt [Primary Care Provider] - 11/03/19 10:10 am (IF YOU ARE UNABLE TO KEEP THIS APPOINTMENT, PLEASE CALL [phone] TO RESCHEDULE. ) Diet: Regular Addtl Attending Provider Instructions: Tim, we treated your urinary tract infection with antibiotics. We are sending you home with an antibiotic that you can take by mouth for the next 11 days. Start by taking 1 tab THIS EVENING once you get home. Then take 2 tabs everyday for the next 11 days. Also continue taking your home Flomax 0.4mg. Please followup with your urologist in the next week after discharge. Dr. Holman's office will call you on Nov 01 to set up that appointment. Please also followup with your primary care doctor in the next week as well so that they can continue to monitor you. That appointment has been scheduled for you with Dr. Ben Schmidt on Nov 03 2019 at 10:10AM. Please come back to the emergency room if your symptoms return or if you develop fevers, chills or night seats once more, or it starts to burn when you pee. It was a pleasure taking care of you during your stay here! Pending Studies at Discharge: No Stand-Alone Forms: My [facility] [employer], Smoking Cessation Medications and DC Order Prescriptions: New cefdinir 300 mg capsule 300 mg PO BID 11 Days Qty: 23 RF: 0 Continued ondansetron HCl [Zofran] 4 mg tablet 4 mg PO Q8H PRN (Reason: nausea and vomiting) Qty: 30 RF: 0 nicotine 7 mg/24 hr Patch 24 Hour 7 mg transdermal QAM Qty: 0 RF: 0 polyethylene glycol 3350 [Miralax] 17 gram Powder In Packet 17 g PO QAM RF: 0 melatonin 2.5 mg/10 mL Liquid 5 mg PO HS RF: 0 tamsulosin 0.4 mg Capsule 0.4 mg PO HS Qty: 30 RF: 0 lisinopril 20 mg Tablet 20 mg PO QAM Qty: 30 RF: 0 sodium chloride 1 gram Tablet 1 g PO BID Qty: 28 RF: 0 acetaminophen [Tylenol] 325 mg Tablet 325 mg PO Q6H PRN (Reason: pain) Qty: 0 RF: 0 aspirin [Ecotrin Low Strength] 81 mg Tablet,Delayed Release (Dr/Ec) 81 mg PO BID Qty: 60 RF: 0 latanoprost 0.005 % Drops 1 drp OPB HS RF: 0 Centrum Silver Women 8 mg iron-400 mcg-300 mcg Tablet 1 tab PO QAM RF: 0 prednisone 10 mg tablet 10 mg PO QAM RF: 0 atorvastatin 20 mg tablet 20 mg PO QAM RF: 0 sulfasalazine 500 mg tablet,delayed release (DR/EC) 500 mg PO TID RF: 0 duloxetine 20 mg capsule,delayed release(DR/EC) 20 mg PO QAM RF: 0 cholecalciferol (vitamin D3) [Vitamin D3] 50 mcg (2,000 unit) Capsule 50 mcg PO QAM RF: 0 Discontinued ciprofloxacin HCl 500 mg tablet 500 mg PO BID 7 Days Qty: 14 RF: 0 Discharge Orders: Discharge Order (Routine); Ordered 10/31/19 Ordered By: Isadora Heller/Other Patient Handouts: Cefdinir capsules Admission Data Admit Date/Time: 10/28/19 15:15 Attending Provider: Newton Dash Admit Provider: Ekaterina Montilla Primary Care Provider: Ben Schmidt Other Providers: Ekaterina Montilla ; Virginia Marroquin Other Interventions: Discharge Summary Assessment (RN) Last Done: 10/31/19 12:29 DC Date/Time DO NOT enter until pt leaves facility: 10/31/19 12:51 Supervising Physician Co-Signing Physician Notes I personally examined the patient and verified all price points of history and exam, discussed case, and agree with decision making with Dr Roberson. Feeling better, would like to go home. No new complaints. Vitals noted, in general she is awake and alert pleasant no distress. HEENT normocephalic atraumatic mucous membranes are moist. Breathing unlabored no accessory muscle use good effort. Skin shows no rashes no pallor or icterus. Labs noted. Micro noted. Sepsis related to pyelonephritis/upper urinary tract infection related to uret erolithiasisnow improved, stable for home. Due to bacteremia, finish out 2 weeks of antibiotics. Risks/benefits considered, given that it is a soriano sensitive E. coli and she got better on ceftriaxone, will finish out a course of therapy with cefdinir (fluoroquinolones were also considered due to the bioavailability, but given that cephalosporins generally reach good levels and would be much better tolerated/much less risky as far as adverse reactions this was opted for.) Stable for home, otherwise as above. Resident Activity Tracking Resident Involvement: Resident Care Provided Care Provided: Adult Hospital Medicine
--- NOTE | 2019-10-31 18:23 | Billing Data ---
Date of Service October 31, 2019 Coding Level of Care Code D/C Day Management <30 mins
== END 2019-10-31 12:51 | disposition home or self-care (01) | DRG 854 ==
LOC: ED 10:59 → OR 14:34 → 2W 15:15 → SUATTDRO 15:15 → 3W 10-29 15:07

== ENCOUNTER 2019-11-12 08:21 | Inpatient (IN) ==
[2019-11-12] MEDS ORDERED: ONDANSETRON INJ 2 MG/ML 2 ML VIAL IV STA (09:40)
[2019-11-12] MEDS ORDERED: SODIUM CHLORIDE 0.9% 1000ML 500 ML IV ONE (09:40)
--- NOTE | 2019-11-12 09:44 | Emergency Department Note ---
Entered by Ivania Cruz acting as a scribe for History of Present Illness General Chief complaint: Back Injury/Pain Stated complaint: SEVERE PAIN IN RIGHT LOWER BACK AND HIP AREA Time Seen by Provider: 11/12/19 09:24 Source: patient and family (son) History of Present Illness Onset (ago): day(s) 1 Location: hip and right Severity: similar to prior episodes Pain Consistency: + other (persistent ) Maximum Pain Intensity: 10 Exacerbated By: + movement Associated symptoms: + other (negative swelling in right leg; positive right- sided lower back pain); no cough Treatments prior to arrival: other (tylenol ) The patient is a 89 year old female who presents to the Emergency Room with complaints of persistent right hip pain that began 1 day prior to arrival, per the patient's son. The patient's son states that the patient's pain is similar to a prior episode several weeks ago that resolved on its own. The patient's son states that the patient had a fall 2 months ago and had a hip replacement performed on 09/14, 60 days ago, in her right hip. The patient's son reports that the patient was seen in her surgeon's office last week and her x-rays performed at this time appeared fine. The patient states that her pain is exacerbated with movement. She states that she has been taking Tylenol for her pain. The patient denies swelling in her right leg and cough. The patient's son states that the patient's incision site looks good. The patient denies any recent falls since h er original fall. The patient states that she has had right-sided lower back pain during this time. Per the patient's son, the patient has several kidney stones in her right kidney and has one in her ureter currently. The patient's son states that the patient was seen in the ED 2 weeks ago for sepsis related to a UTI. The patient states that she is scheduled to have her kidney stones removed in 2 weeks. Home Medications Home Medications Medication Instructions Recorded Confirmed Type Centrum Silver Women 1 tab PO QAM 07/06/18 11/12/19 History atorvastatin 20 mg PO QAM 09/05/19 11/12/19 History cholecalciferol (vitamin D3) 50 mcg PO QAM 09/05/19 11/12/19 History [Vitamin D3] duloxetine 20 mg PO QAM 09/05/19 11/12/19 History prednisone 5 mg PO QAM 09/05/19 11/12/19 History sulfasalazine 500 mg PO BID 09/05/19 11/12/19 History melatonin 5 mg PO HS 09/28/19 11/12/19 History polyethylene glycol 3350 [Miralax] 17 g PO QAM PRN 09/28/19 11/12/19 History aspirin [Ecotrin Low Strength] 81 mg PO BID #60 tab 10/02/19 11/12/19 Rx tamsulosin 0.4 mg PO HS #30 cap 10/02/19 11/12/19 Rx lisinopril 20 mg PO QAM 11/11/19 11/12/19 History acetaminophen [Tylenol Extra 500 mg PO Q6H PRN 11/12/19 11/12/19 History Strength] cefdinir 300 mg PO BID 11/12/19 11/12/19 History ibuprofen 200 mg PO Q6H PRN 11/12/19 11/12/19 History Allergies Allergy/AdvReac Type Severity Reaction Status Date / Time Sulfa (Sulfonamide Allergy Intermediate Rash Verified 11/12/19 10:47 Antibiotics) mirabegron [From Myrbetriq] AdvReac Intermediate hypertensio Verified 11/12/19 10:47 n nicotine AdvReac Mild PATCH-SKIN Verified 11/12/19 10:47 IRRITATION shrimp AdvReac Mild Photosensit Verified 11/12/19 10:47 ivity Past Med/Surg History Medical History (Updated 11/12/19 @ 12:32 by Joellen Russell PA-C) Anxiety (Chronic) Depression (Chronic) Glaucoma (Chronic) Hearing deficit (Chronic) BL [place] History of nephrolithiasis Hyperlipidemia (Chronic) Kidney stones (Chronic) Osteoarthritis (Chronic) Rheumatoid arthritis (Chronic) Urinary incontinence Surgical History Hip fracture requiring operative repair History of cataract surgery (Resolved) left History of colonoscopy (Resolved) History of lithotripsy (Resolved) x 2 History of tooth extraction (Resolved) Nausea and vomiting after administration of anesthetic agent Status post cystoscopy with ureteral stent placement 10/28/2019 [facility] Family History Other No pertinent family history in first degree relatives Social History Preferred Language: Kosovan Communication Ability: Effective Visual Impairment: No Limitations Manager Legal Required: No Beliefs That Will Affect Care: None marital status: / Current Living Situation: Alone Other Information That Helps Us Care for You: No Feels Safe at Home: Yes Safety Concerns: Feels Safe At This Time Smoking Status: Former smoker Tobacco Type: cigarettes ; Cigarettes Per Day: 1/2 ppd ; Second Hand Exposure: Yes ( WAS A SMOKER) ; Hx Alcohol Use: Yes Alcohol type: wine Hx Substance Use: No Review of Systems See HPI for pertinent positives & negatives. and A total of 10 systems reviewed and were otherwise negative Physical Exam Vital Signs Vital Signs - 24 hr 11/12/19 09:51 11/12/19 09:57 11/12/19 10:08 Pulse Rate 86 86 Pulse Rate [Apical] 85 Pulse Rate from SpO2 Sensor 86 86 80 Pulse Rhythm Pulse Rhythm [Apical] Respiratory Rate 19 24 20 Respiratory Effort / Characteristics Respiratory Depth Blood Pressure 162/85 H Blood Pressure [Right Arm] 162/85 H Blood Pressure Mean 109 Blood Pressure Mean [Right Arm] 110 Blood Pressure Position [Right Arm] Pulse Oximetry 94 94 89 L Oxygen Delivery Method Room Air 11/12/19 11:04 11/12/19 11:05 11/12/19 11:11 Pulse Rate 88 Pulse Rate [Apical] Pulse Rate from SpO2 Sensor 85 88 Pulse Rhythm Pulse Rhythm [Apical] Respiratory Rate 18 Respiratory Effort / Characteristics Respiratory Depth Blood Pressure 134/63 134/63 Blood Pressure [Right Arm] Blood Pressure Mean 79 79 Blood Pressure Mean [Right Arm] Blood Pressure Position [Right Arm] Pulse Oximetry 91 92 Oxygen Delivery Method 11/12/19 11:13 11/12/19 11:35 11/12/19 11:36 Pulse Rate 93 H 86 Pulse Rate [Apical] 78 Pulse Rate from SpO2 Sensor 87 87 Pulse Rhythm Pulse Rhythm [Apical] Regular Respiratory Rate 18 17 Respiratory Effort / Characteristics Non-Labored Respiratory Depth Normal Blood Pressure 137/66 Blood Pressure [Right Arm] 134/63 Blood Pressure Mean 91 Blood Pressure Mean [Right Arm] 86 Blood Pressure Position [Right Arm] Lying Pulse Oximetry 95 92 90 Oxygen Delivery Method Room Air 11/12/19 11:37 11/12/19 11:40 11/12/19 11:50 Pulse Rate 87 86 85 Pulse Rate [Apical] Pulse Rate from SpO2 Sensor 86 86 Pulse Rhythm Regular Pulse Rhythm [Apical] Respiratory Rate 15 14 18 Respiratory Effort / Characteristics Respiratory Depth Blood Pressure Blood Pressure [Right Arm] Blood Pressure Mean Blood Pressure Mean [Right Arm] Blood Pressure Position [Right Arm] Pulse Oximetry 93 92 92 Oxygen Delivery Method Room Air 11/12/19 12:00 11/12/19 12:01 11/12/19 12:10 Pulse Rate 87 88 86 Pulse Rate [Apical] Pulse Rate from SpO2 Sensor 87 88 87 Pulse Rhythm Pulse Rhythm [Apical] Respiratory Rate 16 16 19 Respiratory Effort / Characteristics Respiratory Depth Blood Pressure 132/63 Blood Pressure [Right Arm] Blood Pressure Mean 88 Blood Pressure Mean [Right Arm] Blood Pressure Position [Right Arm] Pulse Oximetry 93 91 94 Oxygen Delivery Method 11/12/19 12:20 11/12/19 12:30 11/12/19 12:31 Pulse Rate 87 87 87 Pulse Rate [Apical] Pulse Rate from SpO2 Sensor 87 88 88 Pulse Rhythm Pulse Rhythm [Apical] Respiratory Rate 21 15 16 Respiratory Effort / Characteristics Respiratory Depth Blood Pressure 128/57 L Blood Pressure [Right Arm] Blood Pressure Mean 78 Blood Pressure Mean [Right Arm] Blood Pressure Position [Right Arm] Pulse Oximetry 91 93 92 Oxygen Delivery Method 11/12/19 12:40 11/12/19 12:50 11/12/19 13:00 Pulse Rate 88 86 86 Pulse Rate [Apical] Pulse Rate from SpO2 Sensor 88 87 86 Pulse Rhythm Pulse Rhythm [Apical] Respiratory Rate 17 13 18 Respiratory Effort / Characteristics Respiratory Depth Blood Pressure 135/62 Blood Pressure [Right Arm] Blood Pressure Mean 82 Blood Pressure Mean [Right Arm] Blood Pressure Position [Right Arm] Pulse Oximetry 91 93 94 Oxygen Delivery Method 11/12/19 13:01 11/12/19 13:10 Pulse Rate 87 87 Pulse Rate [Apical] Pulse Rate from SpO2 Sensor 87 Pulse Rhythm Pulse Rhythm [Apical] Respiratory Rate 15 21 Respiratory Effort / Characteristics Respiratory Depth Blood Pressure Blood Pressure [Right Arm] Blood Pressure Mean Blood Pressure Mean [Right Arm] Blood Pressure Position [Right Arm] Pulse Oximetry 94 Oxygen Delivery Method GENERAL: The patient is awake and alert. She is very anxious and uncomfortable appearing. EYES: The conjunctivae are clear. The pupils are round and reactive. EARS, NOSE, MOUTH AND THROAT: The nose is without any evidence of any deformity. Mucous membranes are moist. Tongue is midline. NECK: The neck is nontender and supple. RESPIRATORY: Normal respiratory effort is noted there is no evidence of wheezing rhonchi or rales CARDIOVASCULAR: Regular rate and rhythm noted there no murmurs rubs or gallops normal S1 normal S2. GASTROINTESTINAL: The abdomen is soft. There is diffuse tenderness to palpation but no specific guarding rigidity. BACK: No midline tenderness was noted to palpation. Range of motion appears intact. MUSCULOSKELETAL/EXTREMITIES: No deformity was noted. The surgical site on the right hip appears well-healed. There is no swelling or erythema. There is no dehiscence or bleeding. There is significant pain with range of motion testing of the right hip. SKIN: There is no obvious evidence of any rash. There are no petechiae, pallor or cyanosis noted. NEUROLOGIC: Patient is awake alert and oriented x3. Course Course 0932: Past medical records reviewed. The patient was evaluated in room B6. A complete history and physical exam was performed. The patient grew out soriano sensitive E. coli on 10/30/19. 1210: I checked on and updated the patient. She is comfortable and in agreement with the plan. 1229: I discussed the case with Dr. Montilla-[facility] Hospitalist who accepts the patient for further evaluation. Administered Medications Acetaminophen (Tylenol) 1,000 mg PO Q8H [facility] Stop: 12/12/19 13:29 Last Admin: 11/13/19 05:38 Dose: 1,000 mg Documented by: [id number] Admin: 11/12/19 22:23 Dose: 1,000 mg Documented by: [id number] Admin: 11/12/19 21:36 Dose: Not Given Documented by: [id number] Admin: 11/12/19 15:03 Dose: 1,000 mg Documented by: [id number] Aspirin (Ecotrin Ectab) 81 mg PO BID [facility] Stop: 12/12/19 20:59 Last Admin: 11/13/19 08:05 Dose: 81 mg Documented by: [id number] Admin: 11/12/19 20:58 Dose: 81 mg Documented by: [id number] Atorvastatin Calcium (Lipitor) 20 mg PO QAM [facility] Stop: 12/13/19 08:59 Last Admin: 11/13/19 08:05 Dose: 20 mg Documented by: [id number] Duloxetine HCl (Cymbalta) 20 mg PO QAM [facility] Stop: 12/13/19 08:59 Last Admin: 11/13/19 08:05 Dose: 20 mg Documented by: [id number] Lisinopril (Zestril) 20 [facility] Stop: 12/13/19 08:59 Last Admin: 11/13/19 08:05 Dose: 20 mg Documented by: [id number] Morphine Sulfate (Morphine Sulfate) 4 mg IV Q2H PRN PRN Reason: Pain Stop: 11/26/19 13:57 Last Admin: 11/13/19 03:22 Dose: 4 mg Documented by: [id number] Admin: 11/12/19 20:37 Dose: 4 mg Documented by: [id number] Prednisone (Prednisone) 5 mg PO [facility] Stop: 12/13/19 08:59 Last Admin: 11/13/19 08:05 Dose: 5 mg Documented by: [id number] Sulfasalazine (Azulfidine Delayed Rel) 500 mg PO BID [facility] Stop: 12/12/19 20:59 Last Admin: 11/13/19 08:04 Dose: 500 mg Documented by: [id number] Admin: 11/12/19 20:40 Dose: 500 mg Documented by: [id number] Tamsulosin HCl (Flomax) 0.4 mg PO HS [facility] Stop: 12/12/19 20:59 Last Admin: 11/12/19 20:41 Dose: 0.4 mg Documented by: [id number] Vitamin D (Vitamin D3) 2,000 units PO [facility] Stop: 12/13/19 08:59 Last Admin: 11/13/19 08:05 Dose: 2,000 units Documented by: [id number] Discontinued Medications Fentanyl Citrate (Fentanyl Citrate) 50 mcg IV Q15M PRN PRN Reason: Pain Stop: 11/26/19 09:39 Last Admin: 11/12/19 12:46 Dose: 50 mcg Documented by: [id number] Admin: 11/12/19 11:08 Dose: 50 mcg Documented by: [id number] Admin: 11/12/19 09:56 Dose: 50 mcg Documented by: [id number] Sodium Chloride (Nss 1000ml) 500 mls @ 999 mls/hr IV .Q31M ONE Stop: 11/12/19 10:10 Last Infusion: 11/12/19 10:30 Dose: 0 mls/hr Documented by: [id number] Admin: 11/12/19 09:56 Dose: 999 mls/hr Documented by: [id number] Ceftriaxone Sodium (Rocephin) 1,000 mg in 50 mls @ 100 mls/hr IV NOW STA Stop: 11/12/19 12:34 Last Infusion: 11/12/19 13:16 Dose: 0 mls/hr Documented by: [id number] Admin: 11/12/19 12:46 Dose: 100 mls/hr Documented by: [id number] Sodium Chloride (Nss 1000ml) 1,000 mls @ 100 mls/hr IV .Q10H TIA Stop: 11/12/19 23:57 Last Infusion: 11/13/19 01:00 Dose: 0 mls/hr Documented by: [id number] Admin: 11/12/19 14:36 Dose: 100 mls/hr Documented by: [id number] Ondansetron HCl (Zofran) 4 mg IV NOW STA Stop: 11/12/19 09:41 Last Admin: 11/12/19 09:56 Dose: 4 mg Documented by: [id number] Medical Decision Making Differential Diagnosis Differential diagnoses includes but is not limited to gastritis, peptic ulcer disease, GERD, gallbladder disease, pancreatitis, small bowel obstruction, acute coronary syndrome, pericarditis, ischemic bowel, irritable bowel disease, irritable bowel syndrome, appendicitis, diverticulitis, malignancy, hernia, urinary tract infection, torsion, /ectopic , perforation, trauma, infectious. Medical Records Attestation: I reviewed the patient's medical records. Home Medications Current Medication List: was personally reviewed by me Laboratory Data Attestation: I reviewed the patient's lab results. Result diagrams: 11/13/19 05:36 11/13/19 05:36 Lab Results 11/12/19 11/12/19 11/12/19 Range/Units 08:45 08:45 08:45 WBC 8.59 (4.8-10.8) K/uL RBC 3.34 L (4.2-5.4) M/uL Hgb 11.2 L (12.0-16.0) g/dL Hct 34.6 L (37-47) % MCV 103.6 H (80-100) fL MCH 33.5 (25-34) pg MCHC 32.4 (32-36) g/dL RDW Std Deviation 58.7 H (36.4-46.3) fL RDW Coeff of Chiara 15.6 H (11.5-14.5) % Plt Count 413 H (130-400) K/uL MPV 9.3 (7.4-10.4) fL Immature Gran % (Auto) 0.2 % Neut % (Auto) 74.1 % Lymph % (Auto) 11.5 % [place] % (Auto) 11.2 % Eos % (Auto) 2.2 % Baso % (Auto) 0.8 % Immature Gran # (Auto) 0.02 (0.00-0.02) K/uL Neut # (Auto) 6.36 (1.4-6.5) K/uL Lymph # (Auto) 0.99 L (1.2-3.4) K/uL [place]ee # (Auto) 0.96 H (0.11-0.59) K/uL Eos # (Auto) 0.19 (0-0.5) K/uL Baso # (Auto) 0.07 (0-0.2) K/uL ESR 35 H (0-21) mm/hr PT 10.7 (9.0-12.0) Seconds INR 1.0 (0.9-1.1) APTT 24.4 (21.0-31.0) Seconds PTT Ratio 0.9 Sodium (136-145) mmol/L Potassium (3.5-5.1) mmol/L Chloride (98-107) mmol/L Carbon Dioxide (21-32) mmol/L Anion Gap (3-11) BUN (7-18) mg/dl Creatinine (0.6-1.2) mg/dl Est Cr Clr Drug Dosing Est GFR ( Amer) Est GFR (Non-Af Amer) BUN/Creatinine Ratio (10-20) Glucose (70-99) mg/dl Calcium (8.5-10.1) mg/dl Total Bilirubin (0.2-1) mg/dl AST (15-37) U/L ALT (12-78) U/L Alkaline Phosphatase (45-117) U/L Troponin I (0-0.045) ng/ml C-Reactive Protein (0-0.29) mg/dl Total Protein (6.4-8.2) gm/dl Albumin (3.4-5.0) gm/dl Globulin (2.5-4.0) gm/dl Albumin/Globulin Ratio (0.9-2) Lipase (73-393) U/L Urine Color Urine Appearance (Clear) Urine pH (4.5-7.5) Ur Specific [place] (1.000-1.030) Urine Protein (Negative) Urine Glucose (UA) (Negative) Urine Ketones (Negative) Urine Blood (Negative) Urine Nitrite (Negative) Urine Bilirubin (Negative) Urine Urobilinogen (Negative) Ur Leukocyte Esterase (Negative) Urine WBC (Auto) (0-5) /hpf Urine RBC (Auto) (0-4) /hpf U Hyaline Cast (Auto) (0-5) /lpf U Epithel Cells (Auto) (0-5) /lpf Urine Bacteria (Auto) (Negative) 11/12/19 11/12/19 Range/Units 08:45 09:10 WBC (4.8-10.8) K/uL RBC (4.2-5.4) M/uL Hgb (12.0-16.0) g/dL Hct (37-47) % MCV (80-100) fL MCH (25-34) pg MCHC (32-36) g/dL RDW Std Deviation (36.4-46.3) fL RDW Coeff of Chiara (11.5-14.5) % Plt Count (130-400) K/uL MPV (7.4-10.4) fL Immature Gran % (Auto) % Neut % (Auto) % Lymph % (Auto) % [place] % (Auto) % Eos % (Auto) % Baso % (Auto) % Immature Gran # (Auto) (0.00-0.02) K/uL Neut # (Auto) (1.4-6.5) K/uL Lymph # (Auto) (1.2-3.4) K/uL [place]ee # (Auto) (0.11-0.59) K/uL Eos # (Auto) (0-0.5) K/uL Baso # (Auto) (0-0.2) K/uL ESR (0-21) mm/hr PT (9.0-12.0) Seconds INR (0.9-1.1) APTT (21.0-31.0) Seconds PTT Ratio Sodium 134 L (136-145) mmol/L Potassium 4.1 (3.5-5.1) mmol/L Chloride 102 (98-107) mmol/L Carbon Dioxide 27 (21-32) mmol/L Anion Gap 5.0 (3-11) BUN 19 H (7-18) mg/dl Creatinine 0.88 (0.6-1.2) mg/dl Est Cr Clr Drug Dosing Not Reportable Est GFR ( Amer) 68.5 Est GFR (Non-Af Amer) 59.1 BUN/Creatinine Ratio 21.1 H (10-20) Glucose 113 H (70-99) mg/dl Calcium 8.8 (8.5-10.1) mg/dl Total Bilirubin 0.3 (0.2-1) mg/dl AST 13 L (15-37) U/L ALT 12 (12-78) U/L Alkaline Phosphatase 56 (45-117) U/L Troponin I 0.017 (0-0.045) ng/ml C-Reactive Protein 3.02 H (0-0.29) mg/dl Total Protein 6.3 L (6.4-8.2) gm/dl Albumin 2.9 L (3.4-5.0) gm/dl Globulin 3.4 (2.5-4.0) gm/dl Albumin/Globulin Ratio 0.8 L (0.9-2) Lipase 76 (73-393) U/L Urine Color Dark Yellow Urine Appearance Clear (Clear) Urine pH 6.5 (4.5-7.5) Ur Specific [place] 1.018 (1.000-1.030) Urine Protein 2+ H (Negative) Urine Glucose (UA) Negative (Negative) Urine Ketones Negative (Negative) Urine Blood 3+ H (Negative) Urine Nitrite Negative (Negative) Urine Bilirubin Negative (Negative) Urine Urobilinogen Negative (Negative) Ur Leukocyte Esterase 1+ H (Negative) Urine WBC (Auto) 5-10 H (0-5) /hpf Urine RBC (Auto) >30 H (0-4) /hpf U Hyaline Cast (Auto) 1-5 (0-5) /lpf U Epithel Cells (Auto) >30 H (0-5) /lpf Urine Bacteria (Auto) Negative (Negative) Imaging Data Radiologist's Impression: Radiology results as stated below per my review and the radiologist's interpretation: SINGLE VIEW CHEST CLINICAL HISTORY: Right hip pain. FINDINGS: An AP, portable, upright chest radiograph is compared to study dated 09/28/2019. The examination is degraded by portable technique and patient rotation. The heart is enlarged noting atherosclerotic calcification of the thoracic aorta. The pulmonary vasculature is noncongested. Chronic interstitial thickening is similar to previous. No airspace consolidation or large pleural effusion is identified. No pneumothorax is seen. The skeletal structures are os teopenic. The bony thorax is grossly intact. Atherosclerotic plaque is noted in the carotid bulbs. IMPRESSION: Cardiomegaly with no active disease in the chest. ACT 112: Negative or not required by law. Electronically signed by: Jose F Cohn M.D. 11/12/2019 11:37 AM SINGLE VIEW PELVIS; 2 VIEWS RIGHT HIP CLINICAL HISTORY: Right hip pain. FINDINGS: An AP view of the pelvis with AP and frog-leg views of the right hip are compared to study dated 11/02/2019 and correlated with pelvic CT performed the same day 11/12/2019. The skeletal structures are osteopenic. There is no radiographic evidence of fracture involving the hips or bony pelvis. A unipolar right hip arthroplasty is in near-anatomic alignment. No periprosthetic lucency is seen. Mild degenerative joint space narrowing seen in the left hip. Sclerotic change is noted in the sacroiliac joints and pubic symphysis. Bilateral ureteral stents are partially visualized. Atherosclerotic plaque is noted in the femoral arteries. Phleboliths are observed in the pelvis. IMPRESSION: No acute bony abnormality and no significant change from recent prior studies and today's pelvic CT. Electronically signed by: Jose F Cohn M.D. 11/12/2019 11:[address] SCAN OF THE ABDOMEN AND PELVIS WITHOUT IV CONTRAST CLINICAL HISTORY: Low back pain. Right hip pain. Flank pain. COMPARISON STUDY: Abdominal CT dated 11/07/2019, 10/28/2019, and 01/26/2018. TECHNIQUE: CT scan of the abdomen and pelvis is performed from the lung bases to the proximal femora. Images are reviewed in the axial, sagittal, and coronal planes. IV contrast was not administered for this examination as per the referring clinician. Note that the examination was performed in significantly suboptimal fashion without oral and IV contrast. There is also motion artifact. A dose lowering technique was utilized adhering to the principles of ALARA. CT DOSE: 274.46 mGy.cm FINDINGS: Lung bases: The heart is enlarged and without pericardial effusion. The coronary arteries and mitral annulus are densely calcified. A small hiatal hernia is noted. A small fat and colon containing Bochdalek hernia is noted at the left lung base. A fat-containing Bochdalek hernia is also seen at the right lung base. There is dependent atelectasis. No airspace consolidation or pleural effusion is identified. Scattered calcified granulomas are observed. Liver: The unenhanced liver is normal in size, contour, and attenuation. There is no intrahepatic biliary ductal dilatation. 1.7 cm cyst is noted in the left lobe. Gallbladder: Grossly unremarkable. Spleen: Normal in size and attenuation. Pancreas: The unenhanced pancreas is moderately atrophic and grossly unremarkable. Adrenal glands: Unremarkable. Kidneys: The unenhanced kidneys demonstrate cortical atrophy. Bilateral vesicoureteral stents are in appropriate position. There is moderate right and mild left-sided hydronephrosis. A 5 mm calculus is present in the distal right ureter along the course of the stent as seen on image #[id number]. No calculi are clearly seen in the left ureter along the course of the stent. There are least 2 nonobstructing left renal calculi which measure up to 9 mm. There are at least 3 small nonobstructing right renal calculi which measure up to 4 mm. There is no evidence of contour deforming renal mass lesion. There is bilateral perinephric stranding. Urothelial thickening is noted in the renal pelvis bilaterally and along the course of ureters. Abdominal vasculature: There is advanced atherosclerotic calcification and ectasia of the abdominal aorta and iliac arteries. Bowel: Fecal retention is noted throughout the colon. There is mild colonic diverticulosis without clear CT evidence of acute diverticulitis. No bowel obstruction is seen. The appendix is well-visualized and normal. Peritoneum: There is no intraperitoneal free air or abdominal ascites. Lymphadenopathy: None. Pelvic viscera: Evaluation of the pelvis is degraded by streak artifact from a right hip arthroplasty. The bladder is distended and the bladder wall appears mildly thickened. The uterus is grossly unremarkable but not well evaluated. No adnexal lesion is identified. Skeletal structures: The skeletal structures are osteopenic. There is advanced lumbosacral spondylosis. There is a subacute appearing superior endplate compression fracture of T11. A large posterior disc osteophyte complex at T12-L1 contributes to spinal stenosis. No lytic or blastic lesions are seen. 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 Soft tissues: There is body wall edema. IMPRESSION: 1. Significantly suboptimal examination without oral and IV contrast. There is also motion artifact. 2. Bilateral ureteral stents are in appropriate position. A 5 mm calculus is again seen in the distal right ureter along the course of the stent. 3. There is moderate right and mild left-sided hydronephrosis. Right-sided hydronephrosis has modestly increased from the 11/07/2019 examination. 4. Additional nonobstructing calculi are present in both kidneys as above. 5. Cardiomegaly. 6. Body wall edema is again noted. 7. Urothelial thickening is again noted in the renal pelvis bilaterally and along the course of the ureters. Mild bladder wall thickening is also suggested. These findings may be related to the presence of indwelling stents. Correlate clinically and with urinalysis for evidence of superimposed urinary tract infection. 8. Additional findings as above. ACT 112: Negative or not required by law. Electronically signed by: Jose F Cohn M.D. 11/12/2019 11:34 AM ECG Data Attestation: I personally reviewed and interpreted this ECG as follows: Indication: + weakness Rate (beats per minute): 84 Rhythm: + normal sinus ECG ST segments: no ST depression and no ST elevation ECG Findings: no PACs and no PVCs Comparison ECG Date: from (09/28/19) Change: no significant change Blood Pressure Blood Pressure Findings: Elevated blood pressure Blood Pressure Disposition: further management by hospitalist ITNO Quintana The patient is an 89-year-old female who presented to the emergency department with multiple complaints. The patient had significant abdominal pain. She was recently diagnosed with kidney stones which are obstructing and has bilateral stents placed. She had a very severe infection because of the kidney stones. The patient stopped antibiotics yesterday and had the full course. She presents today with worsening abdominal pain flank pain as well as right hip pain. It is difficult to ascertain the cause of the right hip pain. X-rays do not show any displacement or fracture of the postoperative area. The surgery was at the beginning of September. There is no erythema or warmth to this joint. It is possible given the patient's recent infection this could be the cause of the patient's pain in her right hip but at this point her pain appears to be more in her abdomen and I think it is secondary to the ureteral calculus with possible urine infection based on the increase in the hydronephrosis noted in the right kidney. I discussed the patient's laboratory and radiographic studies with her. She was treated with IV pain medication IV fluids and IV antiemetics. She was also treated with IV antibiotics. I discussed her case with the on-call [facility] hospitalist group. They have agreed to evaluate the patient in the emergency department for further management disposition. The patient was reevaluated multiple times. She was feeling much better on subsequent reevaluation. Impression & Plan Abdominal pain, Acute postoperative pain of right hip, Acute UTI Discharge Plan Visit Data *Final* Discharge Date/Time: 11/12/19 13:40 Chief Complaint: Back Injury/Pain Stated Complaint: SEVERE PAIN IN RIGHT LOWER BACK AND HIP AREA ED Provider: Surjit Monteiro Discharge Problem: Abdominal pain, Acute postoperative pain of right hip, Acute UTI Patient Disposition: Admitted As Inpatient Discharge Instructions Interventions: ED Discharge Assessment Last Done: 11/12/19 13:40 The scribe's documentation has been prepared under my direction and personally reviewed by me in its entirety. I confirm that the note above accurately reflects all work, treatment, procedures, and medical decision making performed by me.
[2019-11-12] MEDS: fentaNYL citrate 100 MCG/2 ML VIAL IV PRN ×3 (09:56→12:46)
[2019-11-12 10:03] LABS: Basophils # (auto) 0.07 K/uL (0-0.2); Basophils % (auto) 0.8 %; Eosinophils # (auto) 0.19 K/uL (0-0.5); Eosinophils % (auto) 2.2 %; Hematocrit (blood only) 34.6 % (37-47); Hemoglobin 11.2 g/dL (12.0-16.0); Immature Granulocytes # (auto) 0.02 K/uL (0.00-0.02); Immature Granulocytes % (auto) 0.2 %; Lymphocytes # (auto) 0.99 K/uL (1.2-3.4); Lymphocytes % (auto) 11.5 %; Mean Corpuscular Hemoglobin 33.5 pg (25-34); Mean Corpuscular Hgb Conc 32.4 g/dL (32-36); Mean Corpuscular Volume 103.6 fL (80-100); Mean Platelet Volume 9.3 fL (7.4-10.4); Monocytes # (auto) 0.96 K/uL (0.11-0.59); Monocytes % (auto) 11.2 %; Neutrophils # (auto) 6.36 K/uL (1.4-6.5); Neutrophils % (auto) 74.1 %; Platelet Count 413 K/uL (130-400); RDW Coefficient of Variation 15.6 % (11.5-14.5); RDW Standard Deviation 58.7 fL (36.4-46.3); Red Blood Count 3.34 M/uL (4.2-5.4); White Blood Count 8.59 K/uL (4.8-10.8)
[2019-11-12 10:04] LABS: Appearance Urine Clear (Clear); Bacteria Urine Automated Negative (Negative); Bilirubin Urine Negative (Negative); Blood Urine 3+ (Negative); Color Urine Dark Yellow; Epithelial Cell Urine Auto >30 /lpf (0-5); Glucose Urine UA Negative (Negative); Ketones Urine Negative (Negative); Leukocyte Esterase Urine 1+ (Negative); Nitrite Urine Negative (Negative); Protein Urine 2+ (Negative); RBC Urine Automated >30 /hpf (0-4); Specific Gravity Urine 1.018 (1.000-1.030); Urobilinogen Urine Negative (Negative); pH Urine 6.5 (4.5-7.5)
[2019-11-12 10:08] LABS: Partial Thromboplastin Ratio 0.9; Partial Thromboplastin Time 24.4 Seconds (21.0-31.0); Prothrombin Time 10.7 Seconds (9.0-12.0)
[2019-11-12 10:11] LABS: Alanine Aminotransferase 12 U/L (12-78); Albumin Level 2.9 gm/dl (3.4-5.0); Aspartate Aminotransferase 13 U/L (15-37); BUN Creatinine Ratio 21.1 (10-20); Blood Urea Nitrogen 19 mg/dl (7-18); C Reactive Protein 3.02 mg/dl (0-0.29); Calcium 8.8 mg/dl (8.5-10.1); Carbon Dioxide 27 mmol/L (21-32); Chloride 102 mmol/L (98-107); Est GFR (African American) 68.5; Est GFR (Non-African American) 59.1; Glucose 113 mg/dl (70-99); Lipase 76 U/L (73-393); Potassium 4.1 mmol/L (3.5-5.1); Sodium 134 mmol/L (136-145)
[2019-11-12 10:16] LABS: Albumin Globulin Ratio 0.8 (0.9-2); Alkaline Phosphatase 56 U/L (45-117); Bilirubin,Total 0.3 mg/dl (0.2-1); Globulin 3.4 gm/dl (2.5-4.0); Total Protein 6.3 gm/dl (6.4-8.2); Troponin I 0.017 ng/ml (0-0.045)
--- NOTE | 2019-11-12 11:35 | CT Scan Report ---
CT SCAN OF THE ABDOMEN AND PELVIS WITHOUT IV CONTRAST CLINICAL HISTORY: Low back pain. Right hip pain. Flank pain. COMPARISON STUDY: Abdominal CT dated 11/07/2019, 10/28/2019, and 01/26/2018. TECHNIQUE: CT scan of the abdomen and pelvis is performed from the lung bases to the proximal femora. Images are reviewed in the axial, sagittal, and coronal planes. IV contrast was not administered for this examination as per the referring clinician. Note that the examination was performed in signific antly suboptimal fashion without oral and IV contrast. There is also motion artifact. A dose lowering technique was utilized adhering to the principles of ALARA. CT DOSE: 274.46 mGy.cm FINDINGS: Lung bases: The heart is enlarged and without pericardial effusion. The coronary arteries and mitral annulus are densely calcified. A small hiatal hernia is noted. A small fat and colon containing Bochd chanelle hernia is noted at the left lung base. A fat-containing Bochdalek hernia is also seen at the rig ht lung base. There is dependent atelectasis. No airspace consolidation or pleural effusion is identi fied. Scattered calcified granulomas are observed. Liver: The unenhanced liver is normal in size, contour, and attenuation. There is no intrahepatic inna iary ductal dilatation. 1.7 cm cyst is noted in the left lobe. Gallbladder: Grossly unremarkable. Spleen: Normal in size and attenuation. Pancreas: The unenhanced pancreas is moderately atrophic and grossly unremarkable. Adrenal glands: Unremarkable. Kidneys: The unenhanced kidneys demonstrate cortical atrophy. Bilateral vesicoureteral stents are in appropriate position. There is moderate right and mild left-sided hydronephrosis. A 5 mm calculus is present in the distal right ureter along the course of the stent as seen on image #[id number]. No calculi ar e clearly seen in the left ureter along the course of the stent. There are least 2 nonobstructing lef t renal calculi which measure up to 9 mm. There are at least 3 small nonobstructing right renal calcu li which measure up to 4 mm. There is no evidence of contour deforming renal mass lesion. There is bi lateral perinephric stranding. Urothelial thickening is noted in the renal pelvis bilaterally and deisi ng the course of ureters. Abdominal vasculature: There is advanced atherosclerotic calcification and ectasia of the abdominal a nikki and iliac arteries. Bowel: Fecal retention is noted throughout the colon. There is mild colonic diverticulosis without cl ear CT evidence of acute diverticulitis. No bowel obstruction is seen. The appendix is well-visualiz ed and normal. Peritoneum: There is no intraperitoneal free air or abdominal ascites. Lymphadenopathy: None. Pelvic viscera: Evaluation of the pelvis is degraded by streak artifact from a right hip arthroplasty . The bladder is distended and the bladder wall appears mildly thickened. The uterus is grossly unrem arkable but not well evaluated. No adnexal lesion is identified. Skeletal structures: The skeletal structures are osteopenic. There is advanced lumbosacral spondylosi s. There is a subacute appearing superior endplate compression fracture of T11. A large posterior dis c osteophyte complex at T12-L1 contributes to spinal stenosis. No lytic or blastic lesions are seen. 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 Soft tissues: There is body wall edema. IMPRESSION: 1. Significantly suboptimal examination without oral and IV contrast. There is also motion artifact. 2. Bilateral ureteral stents are in appropriate position. A 5 mm calculus is again seen in the distal right ureter along the course of the stent. 3. There is moderate right and mild left-sided hydronephrosis. Right-sided hydronephrosis has modestl y increased from the 11/07/2019 examination. 4. Additional nonobstructing calculi are present in both kidneys as above. 5. Cardiomegaly. 6. Body wall edema is again noted. 7. Urothelial thickening is again noted in the renal pelvis bilaterally and along the course of the u reters. Mild bladder wall thickening is also suggested. These findings may be related to the presence of indwelling stents. Correlate clinically and with urinalysis for evidence of superimposed urinary tract infection. 8. Additional findings as above. ACT 112: Negative or not required by law. Electronically signed by: Jose F Cohn M.D. 11/12/2019 11:34 AM
--- NOTE | 2019-11-12 11:37 | XRay Report ---
SINGLE VIEW PELVIS; 2 VIEWS RIGHT HIP CLINICAL HISTORY: Right hip pain. FINDINGS: An AP view of the pelvis with AP and frog-leg views of the right hip are compared to study dated 11/02/2019 and correlated with pelvic CT performed the same day 11/12/2019. The skeletal structur es are osteopenic. There is no radiographic evidence of fracture involving the hips or bony pelvis. A unipolar right hip arthroplasty is in near-anatomic alignment. No periprosthetic lucency is seen. Mi ld degenerative joint space narrowing seen in the left hip. Sclerotic change is noted in the sacroili ac joints and pubic symphysis. Bilateral ureteral stents are partially visualized. Atherosclerotic pl aque is noted in the femoral arteries. Phleboliths are observed in the pelvis. IMPRESSION: No acute bony abnormality and no significant change from recent prior studies and today's pelvic CT. Electronically signed by: Jose F Cohn M.D. 11/12/2019 11:36 AM
--- NOTE | 2019-11-12 11:38 | XRay Report ---
SINGLE VIEW CHEST CLINICAL HISTORY: Right hip pain. FINDINGS: An AP, portable, upright chest radiograph is compared to study dated 09/28/2019. The examina tion is degraded by portable technique and patient rotation. The heart is enlarged noting atheroscler otic calcification of the thoracic aorta. The pulmonary vasculature is noncongested. Chronic intersti tial thickening is similar to previous. No airspace consolidation or large pleural effusion is identi fied. No pneumothorax is seen. The skeletal structures are osteopenic. The bony thorax is grossly int act. Atherosclerotic plaque is noted in the carotid bulbs. IMPRESSION: Cardiomegaly with no active disease in the chest. ACT 112: Negative or not required by law. Electronically signed by: Jose F Cohn M.D. 11/12/2019 11:37 AM
[2019-11-12] MEDS ORDERED: cefTRIAXone SODIUM 1,000 MG/50 ML BAG IV STA (12:05)
--- NOTE | 2019-11-12 12:38 | History & Physical Report ---
Date of Service November 12, 2019 Assessment & Plan (1) Hydronephrosis, right: - Admit to med surg - CT scan reviewed showing bilateral ureteral stents are in appropriate position. A 5 mm calculus is again seen in the distal right ureter along the course of the stent. Mmoderate right and mild left-sided hydronephrosis. Right- sided hydronephrosis has modestly increased from the 11/07/2019 examination. Additional nonobstructing calculi are present in both kidneys as above. Urothelial thickening is again noted in the renal pelvis bilaterally and along the course of the ureters. Mild bladder wall thickening is also suggested. These findings may be related to the presence of indwelling stents. - UA does not appear severely infected, pt finished course of antibiotics yesterday after her previous hospitalization earlier this month, given a dose of ceftriaxone in the ER, will give empirically with 48 hr stop, last UCx grew soriano sensitive e.coli. Follow UCx - No WBC, afebrile - Consult urology - Discussed with Dr. Friend via phone - november 23 pt was already scheduled for lithotripsy, no need at this time for IR percutaneous stenting, will continue with pain management and plan to move up procedure for a sooner date if possible and pending her course. - Continue IVFs at 100 ml/hr x 10 hrs - Possible that this is contributing to the pain of her right hip (2) Nephrolithiasis: - Hx of such, noted in CT as above - Continue supportive care with fluids, tylenol for pain prn, may use low dose IV morphine for severe pain - As above (3) UTI (urinary tract infection): - Ceftriaxone x 1 given in the ER, 48 hr empirical tx. (4) History of right hip hemiarthroplasty: - s/p R CALDERON on 09/14/[address] Santana, stable, no changes in r hip arthroplasty as per imaging with xray, no recent known mechanical injury - Check CT of the R hip as pt with significant pain with R internal rotation, question if there is a labrum tear? - Monitor for possibility of septic joint with hx of sepsis in the setting of UTI? -Ceftriaxone as above. - Will consult ortho for further recs -Tylenol scheduled and IV morphine prn for analgesia, holding ibuprofen (5) Hypertension: - Continue lisinopril 20 mg daily, asa 81 mg daily -Bp well controlled presently (6) Hyperlipidemia: - Continue atorvastatin 20 mg daily (7) Glaucoma: (8) Anxiety: (9) Depression: -Continue Cymbalta 20 mg daily -Melatonin 5 mg for sleep, hold during this admission (10) Rheumatoid arthritis: -Continue sulfasalazine and prednisone (11) Osteoarthritis: -Continue Tylenol 1000 mg every 8 hours control (12) Severe protein-calorie malnutrition: -Heart healthy diet -Albumin 2.9, will order boost 3 times daily with meals and at bedtime (13) DVT prophylaxis: -Teds CODE STATUS: DNR Disposition: Patient from home, lives alone, to assist with discharge planning History of Present Illness Primary Care Provider: Ben Schmidt This is an 89 yo F with PMHx of recurrent UTI, nephrolithiasis, bilateral hydronephrosis, bilateral ureteral stents in place, HTN, HLD, RA, osteoarthritis, glaucoma, depression, anxiety who presents with acute onset of right sided lower back pain which became acutely worse yesterday. She admits to having waves of pain throughout the night, mostly in her right lower abdomen which radiated to her right lower back and the right hip. She has had stent pain since having bilateral ureteral stents placed during her last admission, but states this pain is much worse. She denies any recent mechanical injury to the right hip which would have precipitated pain there that she is aware of. She had seen ortho on 11/07 for routine follow up where she was pain free, but then afterwards slowly had progressive worsening of pain. For relief, all she did was take Tylenol and prayed a lot. The patient is incontinent, and changes her brief 5 times per day to help prevent UTI, but reports that she probably does not drink as much water as she should. The last dose of cefdinir was on 11/11, as she finished the course since her previous hospitalization with sepsis from uti. She took all her other routinely scheduled medications this morning. Patient denies any fevers, sweats or chills. Her pain is improved after dose of fentanyl given in the ER The patient was seen in follow up after her most recent admission by urology on 11/09/19- At that time a right ureteroscopy with laser lithotripsy was set up for the right side. She has a right sided mid ureteral stone and a large left sided stone. The plan was do the procedure for the right first and the left for a later date, while maintaining the current stents, and exchanging both at time of the procedure for each side respectively. This visit is the patients 5th inpatient stay since Jul 2019. Her most recent admissions are as follows: 09/05/19-09/06/19 : Near sycope secondary to a UTI 09/13/19-09/16/19 : R hip fracture, leukocytosis, and hyponatremia with poor oral intake 09/28/19-10/02/19 : Hyponatremia with poor oral intake, leukocytosis, sacral decubitus and cellulitis 10/28/19-10/31/19 : Ureteral obstruction, hydronephrosis, e. coli UTI and sepsis Allergies Allergy/AdvReac Type Severity Reaction Status Date / Time Sulfa (Sulfonamide Allergy Intermediate Rash Verified 11/12/19 10:47 Antibiotics) [email or web address] [From Myrbetriq] AdvReac Intermediate hypertensio Verified 11/12/19 10:47 n nicotine AdvReac Mild PATCH-SKIN Verified 11/12/19 10:47 IRRITATION shrimp AdvReac Mild Photosensit Verified 11/12/19 10:47 ivity Home Medications Home Medications Medication Instructions Recorded Confirmed Type Centrum Silver Women 1 tab PO QAM 07/06/18 11/12/19 History atorvastatin 20 mg PO QAM 09/05/19 11/12/19 History cholecalciferol (vitamin D3) 50 mcg PO QAM 09/05/19 11/12/19 History [Vitamin D3] duloxetine 20 mg PO QAM 09/05/19 11/12/19 History prednisone 5 mg PO QAM 09/05/19 11/12/19 History sulfasalazine 500 mg PO BID 09/05/19 11/12/19 History melatonin 5 mg PO HS 09/28/19 11/12/19 History polyethylene glycol 3350 [Miralax] 17 g PO QAM PRN 09/28/19 11/12/19 History aspirin [Ecotrin Low Strength] 81 mg PO BID #60 tab 10/02/19 11/12/19 Rx tamsulosin 0.4 mg PO HS #30 cap 10/02/19 11/12/19 Rx lisinopril 20 mg PO QAM 11/11/19 11/12/19 History acetaminophen [Tylenol Extra 500 mg PO Q6H PRN 11/12/19 11/12/19 History Strength] cefdinir 300 mg PO BID 11/12/19 11/12/19 History ibuprofen 200 mg PO Q6H PRN 11/12/19 11/12/19 History Past Med/Surg History Medical History (Updated 11/12/19 @ 12:32 by Joellen Russell PA-C) Anxiety (Chronic) Depression (Chronic) Glaucoma (Chronic) Hearing deficit (Chronic) BL [facility]ERO History of nephrolithiasis Hyperlipidemia (Chronic) Kidney stones (Chronic) Osteoarthritis (Chronic) Rheumatoid arthritis (Chronic) Urinary incontinence Surgical History Hip fracture requiring operative repair History of cataract surgery (Resolved) left History of colonoscopy (Resolved) History of lithotripsy (Resolved) x 2 History of tooth extraction (Resolved) Nausea and vomiting after administration of anesthetic agent Status post cystoscopy with ureteral stent placement 10/28/2019 [facility] Family History Other No pertinent family history in first degree relatives Social History Preferred Language: [place] Communication Ability: Effective Visual Impairment: No 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 Beliefs That Will Affect Care: None marital status: / Current Living Situation: Alone Other Information That Helps Us Care for You: No Feels Safe at Home: Yes Safety Concerns: Feels Safe At This Time Smoking Status: Former smoker Tobacco Type: cigarettes ; Cigarettes Per Day: 1/2 ppd ; Second Hand Exposure: Yes ( WAS A SMOKER) ; Hx Alcohol Use: Yes Alcohol type: wine Hx Substance Use: No Review of Systems Review of Systems: Constitutional: No fever, sweats or chills Eyes: No diplopia, no worsening or blurred vision ENT: normal hearing, no trouble swallowing Respiratory: No cough, sputum, dyspnea at rest or on exertion Cardiovascular: No chest pain, tightness or palpitations Abdomen: no pain, No pain, nausea, vomiting, diarrhea or constipation Musculoskeletal: + R hip pain with minimal movement, otherwise No joint pain, calf pain, swelling Neurologic: No weakness, numbness/tingling, or balance problems Psychiatric: No anxiety or depression Skin: No rash or itch Physical Exam Physical Exam: General: awake, alert, no apparent distress, + thin Head: Normocephalic, atraumatic ENT: PERRL, EOMI, no pharyngeal exudate, mucous membranes moist Chest: Clear to auscultation, on room air, no adventitious breath sounds Cardiac: Regular rate and rhythm, no murmur, no JVD, normal peripheral pulses, good capillary refill Abdominal: NABS x 4 quadrants, soft, nondistended, nontender to palpation, no rebound, guarding or tenderness Extremities: +Right hip internal rotation ROM limited and painful for pt to perform, external rotation ROM good, no pain with this movement. Otherwise, normal inspection, no peripheral edema or erythema, calfs nontender to palpation Psych: Normal mood and affect Neuro: AAO x 3, strength intact bilaterally and rated 5/5, no gross motor deficits, speech is clear, no peripheral sensory deficits Results & Data Vital Signs (Past 12 Hours) Vital Signs Temp Pulse Pulse Resp BP BP Pulse Ox 11/12/19 11:37 87 15 93 11/12/19 11:13 78 18 134/63 95 11/12/19 10:08 85 20 162/85 H 94 11/12/19 08:27 36.4 C L 102 H 20 144/65 H 96 Diagnostic Findings SINGLE VIEW PELVIS; 2 VIEWS RIGHT HIP CLINICAL HISTORY: Right hip pain. FINDINGS: An AP view of the pelvis with AP and frog-leg views of the right hip are compared to study dated 11/02/2019 and correlated with pelvic CT performed the same day 11/12/2019. The skeletal structures are osteopenic. There is no radiographic evidence of fracture involving the hips or bony pelvis. A unipolar right hip arthroplasty is in near-anatomic alignment. No periprosthetic lucency is seen. Mild degenerative joint space narrowing seen in the left hip. Sclerotic change is noted in the sacroiliac joints and pubic symphysis. Bilateral ureteral stents are partially visualized. Atherosclerotic plaque is noted in the femoral arteries. Phleboliths are observed in the pelvis. IMPRESSION: No acute bony abnormality and no significant change from recent prior studies and today's pelvic CT. Electronically signed by: Jose F Cohn M.D. 11/12/2019 11:36 AM SINGLE VIEW CHEST CLINICAL HISTORY: Right hip pain. FINDINGS: An AP, portable, upright chest radiograph is compared to study dated 09/28/2019. The examination is degraded by portable technique and patient rotation. The heart is enlarged noting atherosclerotic calcification of the thoracic aorta. The pulmonary vasculature is noncongested. Chronic interstitial thickening is similar to previous. No airspace consolidation or large pleural effusion is identified. No pneumothorax is seen. The skeletal structures are osteopenic. The bony thorax is grossly intact. Atherosclerotic plaque is noted in the carotid bulbs. IMPRESSION: Cardiomegaly with no active disease in the chest. ACT 112: Negative or not required by law. Electronically signed by: Jose F Cohn M.D. 11/12/2019 11:[address] SCAN OF THE ABDOMEN AND PELVIS WITHOUT IV CONTRAST CLINICAL HISTORY: Low back pain. Right hip pain. Flank pain. COMPARISON STUDY: Abdominal CT dated 11/07/2019, 10/28/2019, and 01/26/2018. TECHNIQUE: CT scan of the abdomen and pelvis is performed from the lung bases to the proximal femora. Images are reviewed in the axial, sagittal, and coronal planes. IV contrast was not administered for this examination as per the referring clinician. Note that the examination was performed in significantly suboptimal fashion without oral and IV contrast. There is also motion artifact. A dose lowering technique was utilized adhering to the principles of ALARA. CT DOSE: 274.46 mGy.cm FINDINGS: Lung bases: The heart is enlarged and without pericardial effusion. The coronary arteries and mitral annulus are densely calcified. A small hiatal hernia is noted. A small fat and colon containing Bochdalek hernia is noted at the left lung base. A fat-containing Bochdalek hernia is also seen at the right lung base. There is dependent atelectasis. No airspace consolidation or pleural effusion is identified. Scattered calcified granulomas are observed. Liver: The unenhanced liver is normal in size, contour, and attenuation. There is no intrahepatic biliary ductal dilatation. 1.7 cm cyst is noted in the left lobe. Gallbladder: Grossly unremarkable. Spleen: Normal in size and attenuation. Pancreas: The unenhanced pancreas is moderately atrophic and grossly unremarkable. Adrenal glands: Unremarkable. Kidneys: The unenhanced kidneys demonstrate cortical atrophy. Bilateral vesicoureteral stents are in appropriate position. There is moderate right and mild left-sided hydronephrosis. A 5 mm calculus is present in the distal right ureter along the course of the stent as seen on image #283. No calculi are clearly seen in the left ureter along the course of the stent. There are least 2 nonobstructing left renal calculi which measure up to 9 mm. There are at least 3 small nonobstructing right renal calculi which measure up to 4 mm. There is no evidence of contour deforming renal mass lesion. There is bilateral perinephric stranding. Urothelial thickening is noted in the renal pelvis bilaterally and along the course of ureters. Abdominal vasculature: There is advanced atherosclerotic calcification and ectasia of the abdominal aorta and iliac arteries. Bowel: Fecal retention is noted throughout the colon. There is mild colonic diverticulosis without clear CT evidence of acute diverticulitis. No bowel obstruction is seen. The appendix is well-visualized and normal. Peritoneum: There is no intraperitoneal free air or abdominal ascites. Lymphadenopathy: None. Pelvic viscera: Evaluation of the pelvis is degraded by streak artifact from a right hip arthroplasty. The bladder is distended and the bladder wall appears mildly thickened. The uterus is grossly unremarkable but not well evaluated. No adnexal lesion is identified. Skeletal structures: The skeletal structures are osteopenic. There is advanced lumbosacral spondylosis. There is a subacute appearing superior endplate compression fracture of T11. A large posterior disc osteophyte complex at T12-L1 contributes to spinal stenosis. No lytic or blastic lesions are seen. 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 Soft tissues: There is body wall edema. IMPRESSION: 1. Significantly suboptimal examination without oral and IV contrast. There is also motion artifact. 2. Bilateral ureteral stents are in appropriate position. A 5 mm calculus is again seen in the distal right ureter along the course of the stent. 3. There is moderate right and mild left-sided hydronephrosis. Right-sided hydronephrosis has modestly increased from the 11/07/2019 examination. 4. Additional nonobstructing calculi are present in both kidneys as above. 5. Cardiomegaly. 6. Body wall edema is again noted. 7. Urothelial thickening is again noted in the renal pelvis bilaterally and along the course of the ureters. Mild bladder wall thickening is also suggested. These findings may be related to the presence of indwelling stents. Correlate clinically and with urinalysis for evidence of superimposed urinary tract infection. 8. Additional findings as above. ECG Additional Comments: 12-NOV-2019 09:48:27 [facility]-EDSTAT ROUTINE RETRIEVAL Normal sinus rhythm Possible Left atrial enlargement Poor R wave progression, consider anterior MS vs. lead placement vs. LVH Abnormal ECG When compared with ECG of 28-SEP-2019 12:39, Minimal criteria for Inferior infarct are no longer Present T wave inversion no longer evident in Lateral leads Confirmed by Syed Crowell ([id number]) on 11/12/2019 12:53:26 PM 25mm/s 10mm/mV 150Hz 9.0.9 12SL 241 KHALIDA: 16 Referred by: REFERRED SELF Confirmed By: Syed Crowell Vent. rate 84 BPM DE interval 132 ms QRS duration 88 ms QT/QTc 374/441 ms P-R-T axes 42 37 85 Code Status & VTE Plan Code Status DNR - discussed with the patient at bedside Supervising Physician Co-Signing Physician Notes I have seen and examined patient with Catrachita Russell PA-C and agree with the assessment and plan. PG Care Time/CCT Total # of Minutes Spent Total Time Spent with Patient: Total time spent is greater than 50% in coordination of care (as documented) at patient's floor/unit and/or counseling patient: Coding Level of Care Code 74213 Initial Inpt Care Lvl 3 Diagnoses Hydronephrosis, right N13.30 Nephrolithiasis N20.0 UTI (urinary tract infection) N39.0 Hematuria presence: without hematuria Urinary tract infection type: site unspecified History of right hip hemiarthroplasty Z96.641 Hypertension I10 Hyperlipidemia E78.5 Hyperlipidemia type: unspecified Glaucoma H40.9 Glaucoma type: unspecified Laterality: unspecified laterality Anxiety F41.9 Depression F33.9 Active/Remission status: remission status unspecified Depression Type: major depressive disorder Major depression recurrence: recurrent Rheumatoid arthritis M06.9 Rheumatoid arthritis location: unspecified site Rheumatoid factor presence: unspecified presence Osteoarthritis M19.90 Severe protein-calorie malnutrition E43 DVT prophylaxis Z29.9 (1) UTI (urinary tract infection) Hematuria presence: without hematuria Urinary tract infection type: site unspecified Qualified Code(s): N39.0 - Urinary tract infection, site not specified (2) Rheumatoid arthritis Rheumatoid arthritis location: unspecified site Rheumatoid factor presence: unspecified presence Qualified Code(s): M06.9 - Rheumatoid arthritis, unspecified (3) Depression Active/Remission status: remission status unspecified Depression Type: major depressive disorder Major depression recurrence: recurrent Qualified Code(s): F33.9 - Major depressive disorder, recurrent, unspecified (4) Hyperlipidemia Hyperlipidemia type: unspecified Qualified Code(s): E78.5 - Hyperlipidemia, unspecified (5) Glaucoma Glaucoma type: unspecified Laterality: unspecified laterality Qualified Code(s): H40.9 - Unspecified glaucoma
--- NOTE | 2019-11-12 12:53 | Electrocardiogram Report ---
Test Reason : Blood Pressure : / mmHG Vent. Rate : 084 BPM Atrial Rate : 084 BPM P-R Int : 132 ms QRS Dur : 088 ms QT Int : 374 ms P-R-T Axes : 042 037 085 degrees QTc Int : 441 ms Normal sinus rhythm Possible Left atrial enlargement Poor R wave progression, consider anterior VA vs. lead placement vs. LVH Abnormal ECG When compared with ECG of 28-SEP-2019 12:39, Minimal criteria for Inferior infarct are no longer Present T wave inversion no longer evident in Lateral leads Confirmed by Syed Crowell ([id number]) on 11/12/2019 12:53:26 PM Referred By: REFERRED SELF Confirmed By:Syed Crowell
[2019-11-12] MEDS ORDERED: SODIUM CHLORIDE 0.9% 1000ML 1,000 ML IV SCH (13:58)
[2019-11-12] MEDS ORDERED: ONDANSETRON INJ 2 MG/ML 2 ML VIAL IV PRN (13:58)
[2019-11-12] MEDS: ACETAMINOPHEN 500 MG TAB PO SCH ×3 (15:03→22:23)
[2019-11-12] MEDS: MoRPHine SULFATE 4 MG/ML 1 ML CARP\\VIAL IV PRN (20:37)
[2019-11-12] MEDS: sulfaSALAzine 500 MG TABEC PO SCH (20:40)
[2019-11-12] MEDS: ASPIRIN 81 MG ECTAB PO SCH (20:58)
[2019-11-12] MEDS ORDERED: TAMSULOSIN HCL 0.4 MG CAP PO SCH (21:00)
[2019-11-13] MEDS: MoRPHine SULFATE 4 MG/ML 1 ML CARP\\VIAL IV PRN (03:22)
[2019-11-13] MEDS: ACETAMINOPHEN 500 MG TAB PO SCH ×2 (05:38→13:30)
[2019-11-13 05:58] LABS: Hematocrit (blood only) 33.2 % (37-47); Hemoglobin 10.5 g/dL (12.0-16.0); Mean Corpuscular Hemoglobin 32.9 pg (25-34); Mean Corpuscular Hgb Conc 31.6 g/dL (32-36); Mean Corpuscular Volume 104.1 fL (80-100); Mean Platelet Volume 8.9 fL (7.4-10.4); Platelet Count 382 K/uL (130-400); RDW Coefficient of Variation 15.7 % (11.5-14.5); RDW Standard Deviation 59.9 fL (36.4-46.3); Red Blood Count 3.19 M/uL (4.2-5.4); White Blood Count 6.81 K/uL (4.8-10.8)
[2019-11-13 06:35] LABS: BUN Creatinine Ratio 18.5 (10-20); Calcium 8.2 mg/dl (8.5-10.1); Creatinine Clr Calc Pharmacy 38.8 ml/min; Est GFR (African American) 80.5; Est GFR (Non-African American) 69.4; Potassium 4.4 mmol/L (3.5-5.1)
[2019-11-13 06:36] LABS: Albumin Level 2.6 gm/dl (3.4-5.0)
[2019-11-13 06:38] LABS: Albumin Globulin Ratio 0.8 (0.9-2); Bilirubin,Total 0.2 mg/dl (0.2-1); Globulin 3.1 gm/dl (2.5-4.0); Total Protein 5.7 gm/dl (6.4-8.2)
[2019-11-13] MEDS: sulfaSALAzine 500 MG TABEC PO SCH (08:04)
[2019-11-13] MEDS: ASPIRIN 81 MG ECTAB PO SCH (08:05)
--- NOTE | 2019-11-13 08:14 | Hospitalist Progress Note ---
Date of Service November 13, 2019 Assessment & Plan (1) Hydronephrosis, right: - Admit to med surg - CT scan reviewed showing bilateral ureteral stents are in appropriate position. A 5 mm calculus is again seen in the distal right ureter along the course of the stent. Mmoderate right and mild left-sided hydronephrosis. Right- sided hydronephrosis has modestly increased from the 11/07/2019 examination. Additional nonobstructing calculi are present in both kidneys as above. Urothelial thickening is again noted in the renal pelvis bilaterally and along the course of the ureters. Mild bladder wall thickening is also suggested. These findings may be related to the presence of indwelling stents. - UA does not appear severely infected, pt finished course of antibiotics yesterday after her previous hospitalization earlier this month, given a dose of ceftriaxone in the ER, will give empirically with 48 hr stop, last UCx grew soriano sensitive e.coli. Follow UCx - No WBC, afebrile - Consult urology - Discussed with Dr. Friend via phone - november 23 pt was already scheduled for lithotripsy, no need at this time for IR percutaneous stenting, will continue with pain management and plan to move up procedure for a sooner date if possible and pending her course. - Continue IVFs at 100 ml/hr x 10 hrs - Possible that this is contributing to the pain of her right hip (2) Nephrolithiasis: - Hx of such, noted in CT as above - Continue supportive care with fluids, tylenol for pain prn, may use low dose IV morphine for severe pain - As above (3) UTI (urinary tract infection): - Ceftriaxone x 1 given in the ER, 48 hr empirical tx. (4) History of right hip hemiarthroplasty: - s/p R CALDERON on 09/14/[address] Santana, stable, no changes in r hip arthroplasty as per imaging with xray, no recent known mechanical injury - Check CT of the R hip as pt with significant pain with R internal rotation, question if there is a labrum tear? - Monitor for possibility of septic joint with hx of sepsis in the setting of UTI? -Ceftriaxone as above. - Will consult ortho for further recs -Tylenol scheduled and IV morphine prn for analgesia, holding ibuprofen (5) Hypertension: - Continue lisinopril 20 mg daily, asa 81 mg daily -Bp well controlled presently (6) Hyperlipidemia: - Continue atorvastatin 20 mg daily (7) Glaucoma: (8) Anxiety: (9) Depression: -Continue Cymbalta 20 mg daily -Melatonin 5 mg for sleep, hold during this admission (10) Rheumatoid arthritis: -Continue sulfasalazine and prednisone (11) Osteoarthritis: -Continue Tylenol 1000 mg every 8 hours control (12) Severe protein-calorie malnutrition: -Heart healthy diet -Albumin 2.9, will order boost 3 times daily with meals and at bedtime (13) DVT prophylaxis: -Teds CODE STATUS: DNR Disposition: Patient from home, lives alone, CM to assist with discharge planning Admission and Anticipated Discharge Date Admission Date: November 12, 2019 Results & Data ([facility]) Vital Signs (Past 12 Hours) Vital Signs Temp Pulse Resp BP BP Pulse Ox 11/13/19 07:38 36.8 C 89 20 166/67 H 91 11/12/19 23:00 36.9 C 80 18 126/61 92 PG Care Time/CCT Total # of Minutes Spent Total Time Spent with Patient: Total time spent is greater than 50% in coordination of care (as documented) at patient's floor/unit and/or counseling patient: Coding Diagnoses Hydronephrosis, right N13.30 Nephrolithiasis N20.0 UTI (urinary tract infection) N39.0 Hematuria presence: without hematuria Urinary tract infection type: site unspecified History of right hip hemiarthroplasty Z96.641 Hypertension I10 Hyperlipidemia E78.5 Hyperlipidemia type: unspecified Glaucoma H40.9 Glaucoma type: unspecified Laterality: unspecified laterality Anxiety F41.9 Depression F33.9 Depression Type: major depressive disorder Major depression recurrence: recurrent Active/Remission status: remission status unspecified Rheumatoid arthritis M06.9 Rheumatoid arthritis location: unspecified site Rheumatoid factor presence: unspecified presence Osteoarthritis M19.90 Severe protein-calorie malnutrition E43 DVT prophylaxis Z29.9 (1) UTI (urinary tract infection) Hematuria presence: without hematuria Urinary tract infection type: site unspecified Qualified Code(s): N39.0 - Urinary tract infection, site not specified (2) Hyperlipidemia Hyperlipidemia type: unspecified Qualified Code(s): E78.5 - Hyperlipidemia, unspecified (3) Glaucoma Glaucoma type: unspecified Laterality: unspecified laterality Qualified Code(s): H40.9 - Unspecified glaucoma (4) Depression Depression Type: major depressive disorder Major depression recurrence: recurrent Active/Remission status: remission status unspecified Qualified Code(s): F33.9 - Major depressive disorder, recurrent, unspecified (5) Rheumatoid arthritis Rheumatoid arthritis location: unspecified site Rheumatoid factor presence: unspecified presence Qualified Code(s): M06.9 - Rheumatoid arthritis, unspecified
--- NOTE | 2019-11-13 08:41 | Orthopedic Consultation ---
Date of Consultation November 13, 2019 Assessment & Plan (1) History of right hip hemiarthroplasty: Images: AP lateral images right hip demonstrate excellent articulation. CT scan demonstrates no interarticular hip destruction subluxation and erosion. Assessment: Non-orthopedic musculoskeletal hip pathology. Generalized musculoskeletal hip pain with no true pathology Plan: Up and ambulatory PRN no physical therapy required. No extra imaging required simply follow-up as an outpatient with her prior surgeon History of Present Illness Reason for Consultation: Reason for consultation; delightful 89-year-old Cauc female with right hip pain. Ongoing now for several days in duration. She has been up ambulatory without assistance and seems to be improving. There does not appear to be any type of significant pathology as her pain is quite benign. The origin actually could be genitourinary system versus true orthopedic musculoskeletal. Attending Physician: Ekaterina Montilla MD History of Present Illness Patient did have a history of a fall injury and did involve a hemiarthroplasty of the right hip. That does not seem to be the difficulty here today Allergies Allergy/AdvReac Type Severity Reaction Status Date / Time Sulfa (Sulfonamide Allergy Intermediate Rash Verified 11/12/19 10:47 Antibiotics) mirabegron [From Myrbetriq] AdvReac Intermediate hypertensio Verified 11/12/19 10:47 n nicotine AdvReac Mild PATCH-SKIN Verified 11/12/19 10:47 IRRITATION shrimp AdvReac Mild Photosensit Verified 11/12/19 10:47 ivity Home Medications Home Medications Medication Instructions Recorded Confirmed Type Centrum Silver Women 1 tab PO QAM 07/06/18 11/12/19 History atorvastatin 20 mg PO QAM 09/05/19 11/12/19 History cholecalciferol (vitamin D3) 50 mcg PO QAM 09/05/19 11/12/19 History [Vitamin D3] duloxetine 20 mg PO QAM 09/05/19 11/12/19 History prednisone 5 mg PO QAM 09/05/19 11/12/19 History sulfasalazine 500 mg PO BID 09/05/19 11/12/19 History melatonin 5 mg PO HS 09/28/19 11/12/19 History polyethylene glycol 3350 [Miralax] 17 g PO QAM PRN 09/28/19 11/12/19 History aspirin [Ecotrin Low Strength] 81 mg PO BID #60 tab 10/02/19 11/12/19 Rx tamsulosin 0.4 mg PO HS #30 cap 10/02/19 11/12/19 Rx lisinopril 20 mg PO QAM 11/11/19 11/12/19 History acetaminophen [Tylenol Extra 500 mg PO Q6H PRN 11/12/19 11/12/19 History Strength] cefdinir 300 mg PO BID 11/12/19 11/12/19 History ibuprofen 200 mg PO Q6H PRN 11/12/19 11/12/19 History Patient History Medical History (Updated 11/12/19 @ 12:32 by Joellen Russell PA-C) Anxiety (Chronic) Depression (Chronic) Glaucoma (Chronic) Hearing deficit (Chronic) BL ROMERO History of nephrolithiasis Hyperlipidemia (Chronic) Kidney stones (Chronic) Osteoarthritis (Chronic) Rheumatoid arthritis (Chronic) Urinary incontinence Surgical History Hip fracture requiring operative repair History of cataract surgery (Resolved) left History of colonoscopy (Resolved) History of lithotripsy (Resolved) x 2 History of tooth extraction (Resolved) Nausea and vomiting after administration of anesthetic agent Status post cystoscopy with ureteral stent placement 10/28/2019 [facility] Family History Other No pertinent family history in first degree relatives Social History Preferred Language: German Communication Ability: Effective Visual Impairment: No Limitations Cob Sawyer Required: No Beliefs That Will Affect Care: None marital status: / Current Living Situation: Alone Other Information That Helps Us Care for You: No Feels Safe at Home: Yes Safety Concerns: Feels Safe At This Time Smoking Status: Former smoker Tobacco Type: cigarettes ; Cigarettes Per Day: 1/2 ppd ; Second Hand Exposure: Yes ( WAS A SMOKER) ; Hx Alcohol Use: Yes Alcohol type: wine Hx Substance Use: No Review of Systems Review of Systems: She denies any fever sweats chills or failure to thrive Denies chest pain shortness of breath Does have some genitourinary issues Musculoskeletal also positive as described Physical Exam Physical Exam: Examination: Overall her examination is benign far as her right hip are reticulation is concerned . No fever sweats chills Denies any chest pain shortness of breath Denies any trauma or injury from a musculoskeletal point of view denies any neurosensory issues or referred pain for the lumbar spine Does have a history of genitourinary issues Vital signs stable appears to be alert oriented Good range of motion of the right hip no restriction of range of motion no leg length discrepancy. Neurologically intact as well Results & Data ([facility]) Vital Signs (Past 12 Hours) Vital Signs Temp Pulse Resp BP BP Pulse Ox 11/13/19 07:38 36.8 C 89 20 166/67 H 91 11/12/19 23:00 36.9 C 80 18 126/61 92 PG Care Time/CCT Total # of Minutes Spent Total Time Spent with Patient: Total time spent is greater than 50% in coordination of care (as documented) at patient's floor/unit and/or counseling patient: Coding Level of Care Code 64062 Initial Inpt Care Lvl 2 Diagnoses History of right hip hemiarthroplasty Z96.641
[2019-11-13] MEDS ORDERED: DULOXETINE HCL 20 MG CAP PO SCH (09:00)
[2019-11-13] MEDS ORDERED: lisinopriL 20 MG TAB PO SCH (09:00)
[2019-11-13] MEDS ORDERED: predniSONE 5 MG TAB PO SCH (09:00)
[2019-11-13] MEDS ORDERED: ATORVASTATIN 20 MG TAB PO SCH (09:00)
[2019-11-13] MEDS ORDERED: CHOLECALCIFEROL 1,000 UNITS 25 MCG TAB PO SCH (09:00)
--- NOTE | 2019-11-13 10:06 | Urology Consultation ---
Date of Consultation November 13, 2019 Assessment & Plan (1) Nephrolithiasis: Bilateral ureteral stents secondary to hydronephrosis, stonesplanned surgery November 23 UA does not appear consistent with infection Her current pain may very well be stent related but she additionally has numerous orthopedic issues which can contribute I think she is safe for discharge home today I am uncertain she requires further antibiotics, but she would theoretically be a candidate for trimethoprim 100 mg nightly or nitrofurantoin 100 mg nightly to try to suppress any recurrence (she does have a Bactrim allergy to trimethoprim often does not prompt the same response) I will speak with Dr. Arguelles about whether or not surgery could be moved up History of Present Illness Attending Physician: Ekaterina Montilla MD History of Present Illness 89-year-old female admitted with hip and back pain yesterday She is known to our service and was seen in our office earlier this week She has bilateral ureteral stents in place She has a history of recurrent urinary tract infectionsmost recent culture showing E. coli, pansensitive (already treated) UA upon arrival was not grossly consistent with infection Imaging reveals appropriately positioned stents with minimal dilation of the collecting systems (as would be expected with the position of the stents) This morning she reports she feels much better No current pain She is ambulatory She remains concerned about recurrent pain as an outpatient She is requesting to have her surgery time moved up as she is already scheduled for surgery in mid November Allergies Allergy/AdvReac Type Severity Reaction Status Date / Time Sulfa (Sulfonamide Allergy Intermediate Rash Verified 11/12/19 10:47 Antibiotics) mirabegron [From Myrbetriq] AdvReac Intermediate hypertensio Verified 11/12/19 10:47 n nicotine AdvReac Mild PATCH-SKIN Verified 11/12/19 10:47 IRRITATION shrimp AdvReac Mild Photosensit Verified 11/12/19 10:47 ivity Home Medications Home Medications Medication Instructions Recorded Confirmed Type Centrum Silver Women 1 tab PO QAM 07/06/18 11/12/19 History atorvastatin 20 mg PO QAM 09/05/19 11/12/19 History cholecalciferol (vitamin D3) 50 mcg PO QAM 09/05/19 11/12/19 History [Vitamin D3] duloxetine 20 mg PO QAM 09/05/19 11/12/19 History prednisone 5 mg PO QAM 09/05/19 11/12/19 History sulfasalazine 500 mg PO BID 09/05/19 11/12/19 History melatonin 5 mg PO HS 09/28/19 11/12/19 History polyethylene glycol 3350 [Miralax] 17 g PO QAM PRN 09/28/19 11/12/19 History aspirin [Ecotrin Low Strength] 81 mg PO BID #60 tab 10/02/19 11/12/19 Rx tamsulosin 0.4 mg PO HS #30 cap 10/02/19 11/12/19 Rx lisinopril 20 mg PO QAM 11/11/19 11/12/19 History acetaminophen [Tylenol Extra 500 mg PO Q6H PRN 11/12/19 11/12/19 History Strength] cefdinir 300 mg PO BID 11/12/19 11/12/19 History ibuprofen 200 mg PO Q6H PRN 11/12/19 11/12/19 History Patient History Medical History Anxiety (Chronic) Depression (Chronic) Glaucoma (Chronic) Hearing deficit (Chronic) BL ROMERO History of nephrolithiasis Hyperlipidemia (Chronic) Kidney stones (Chronic) Osteoarthritis (Chronic) Rheumatoid arthritis (Chronic) Urinary incontinence Surgical History Hip fracture requiring operative repair History of cataract surgery (Resolved) left History of colonoscopy (Resolved) History of lithotripsy (Resolved) x 2 History of tooth extraction (Resolved) Nausea and vomiting after administration of anesthetic agent Status post cystoscopy with ureteral stent placement 10/28/2019 [facility] Family History Other No pertinent family history in first degree relatives Social History Preferred Language: Urdu Communication Ability: Effective Visual Impairment: No Limitations Staffing Assistant Required: No Beliefs That Will Affect Care: None marital status: / Current Living Situation: Alone Other Information That Helps Us Care for You: No Feels Safe at Home: Yes Safety Concerns: Feels Safe At This Time Smoking Status: Former smoker Tobacco Type: cigarettes ; Cigarettes Per Day: 1/2 ppd ; Second Hand Exposure: Yes ( WAS A SMOKER) ; Hx Alcohol Use: Yes Alcohol type: wine Hx Substance Use: No Review of Systems Constitutional: no fever, no chills and no fatigue Eyes: no worsening vision Ear, Nose, Mouth, Throat: no facial pain and no pain with swallowing Respiratory: no cough and no dyspnea Cardiovascular: no chest pain and no palpitations Gastrointestinal: no abdominal pain, no nausea and no vomiting Genitourinary: no dysuria, no difficulty urinating, no urinary frequency and no hematuria Musculoskeletal: no back pain Integumentary: no rash and no urticaria Neurologic: no gait abnormality and no unsteadiness Psychiatric: no behavioral changes and no depression Endocrine: no fatigue Physical Exam Constitutional: well developed and well nourished Neck: neck nontender Respiratory: normal respiratory effort; no respiratory distress and does not use accessory muscles Cardiovascular: Rate/Rhythm: regular rate Vessels: radial pulses present Extremities: no edema Gastrointestinal (Abdomen): Inspection/Auscultation: abdomen normal to inspection Percussion/Palpation: abdomen soft; abdomen nontender and no guarding Musculoskeletal: Head/Neck/Chest: normocephalic and head atraumatic Extremities: extremities normal to inspection Skin: no rashes and no lesions Trauma: no evidence of skin trauma Neurologic: awake; not obtunded Speech / Cognition: normal speech Motor/Sensory: no tremor Psychiatric: Orientation: alert and oriented x 3 Lymphatic: no lymphadenopathy Results & Data Vital Signs (Past 12 Hours) Vital Signs Temp Pulse Resp BP BP Pulse Ox 11/13/19 07:38 36.8 C 89 20 166/67 H 91 11/12/19 23:00 36.9 C 80 18 126/61 92 PG Care Time/CCT Total # of Minutes Spent Total Time Spent with Patient: Total time spent is greater than 50% in coordination of care (as documented) at patient's floor/unit and/or counseling patient: Coding Level of Care Code 04667 Inpt Consult Level 4 Diagnoses Nephrolithiasis N20.0
[2019-11-13] MEDS ORDERED: cefTRIAXone SODIUM 1,000 MG/50 ML BAG IV SCH (12:00)
--- NOTE | 2019-11-13 14:14 | Discharge Summary ---
Date of Service November 13, 2019 Admission HPI Per Admitting Provider This is an 89 yo F with PMHx of recurrent UTI, nephrolithiasis, bilateral hydronephrosis, bilateral ureteral stents in place, HTN, HLD, RA, osteoarthritis, glaucoma, depression, anxiety who presents with acute onset of r ight sided lower back pain which became acutely worse yesterday. She admits to having waves of pain throughout the night, mostly in her right lower abdomen which radiated to her right lower back and the right hip. She has had stent pain since having bilateral ureteral stents placed during her last admission, but states this pain is much worse. She denies any recent mechanical injury to the right hip which would have precipitated pain there that she is aware of. She had seen ortho on 11/07 for routine follow up where she was pain free, but then afterwards slowly had progressive worsening of pain. For relief, all she did was take Tylenol and prayed a lot. The patient is incontinent, and changes her brief 5 times per day to help prevent UTI, but reports that she probably does not drink as much water as she should. The last dose of cefdinir was on 11/11, as she finished the course since her previous hospitalization with sepsis from uti. She took all her other routinely scheduled medications this morning. Patient denies any fevers, sweats or chills. Her pain is improved after dose of fentanyl given in the ER The patient was seen in follow up after her most recent admission by urology on 11/09/19- At that time a right ureteroscopy with laser lithotripsy was set up for the right side. She has a right sided mid ureteral stone and a large left sided stone. The plan was do the procedure for the right first and the left for a later date, while maintaining the current stents, and exchanging both at time of the procedure for each side respectively. This visit is the patients 5th inpatient stay since Jul 2019. Her most recent admissions are as follows: 09/05/19-09/06/19 : Near sycope secondary to a UTI 09/13/19-09/16/19 : R hip fracture, leukocytosis, and hyponatremia with poor oral intake 09/28/19-10/02/19 : Hyponatremia with poor oral intake, leukocytosis, sacral decubitus and cellulitis 10/28/19-10/31/19 : Ureteral obstruction, hydronephrosis, e. coli UTI and sepsis Admission Exam Per Admitting Provider Physical Exam: General: awake, alert, no apparent distress, + thin Head: Normocephalic, atraumatic ENT: PERRL, EOMI, no pharyngeal exudate, mucous membranes moist Chest: Clear to auscultation, on room air, no adventitious breath sounds Cardiac: Regular rate and rhythm, no murmur, no JVD, normal peripheral pulses, good capillary refill Abdominal: NABS x 4 quadrants, soft, nondistended, nontender to palpation, no rebound, guarding or tenderness Extremities: +Right hip internal rotation ROM limited and painful for pt to perform, external rotation ROM good, no pain with this movement. Otherwise, normal inspection, no peripheral edema or erythema, calfs nontender to palpation Psych: Normal mood and affect Neuro: AAO x 3, strength intact bilaterally and rated 5/5, no gross motor deficits, speech is clear, no peripheral sensory deficits Principal Diagnosis R hydronephrosis, bilateral ureteral stents, right nephrolithiasis Discharge Exam General: awake, alert, no apparent distress Head: Normocephalic, atraumatic ENT: PERRL, EOMI, no pharyngeal exudate, mucous membranes moist Chest: Clear to auscultation, on room air, no adventitious breath sounds Cardiac: Regular rate and rhythm, no murmur, no JVD, normal peripheral pulses, good capillary refill Abdominal: NABS x 4 quadrants, soft, nodistended, nontender to palpation, no rebound, guarding or tenderness Back: no point tenderness over T11 Extremities: Normal inspection, able to move left hip without pain, no peripheral edema or erythema, calfs nontender to palpation Psych: Normal mood and affect Neuro: AAO x 3, strength intact bilaterally and rated 5/5, no motor deficits, speech is clear, no peripheral sensory deficits Discharge Data Allergies Allergy/AdvReac Type Severity Reaction Status Date / Time Sulfa (Sulfonamide Allergy Intermediate Rash Verified 11/12/19 10:47 Antibiotics) mirabegron [From Myrbetriq] AdvReac Intermediate hypertensio Verified 11/12/19 10:47 n nicotine AdvReac Mild PATCH-SKIN Verified 11/12/19 10:47 IRRITATION shrimp AdvReac Mild Photosensit Verified 11/12/19 10:47 ivity Consultations 11/12/19 12:12 ED Decision to Admit Stat 11/12/19 13:47 Consult Orthopedic Surgery Routine 11/12/19 13:58 Consult Case Management - Discharge Planning Routine Consult Urology Routine 11/13/19 12:12 Consult ZENOBIAG heel caser Routine Ordered Studies 11/12/19 09:40 CT abd pelvis wo con Stat Hospital Course (1) Hydronephrosis, right: - Admitted to med surg - CT scan reviewed showing bilateral ureteral stents are in appropriate position. A 5 mm calculus is again seen in the distal right ureter along the course of the stent. Mmoderate right and mild left-sided hydronephrosis. Right- sided hydronephrosis has modestly increased from the 11/07/2019 examination. Additional nonobstructing calculi are present in both kidneys as above. Urotheli al thickening is again noted in the renal pelvis bilaterally and along the course of the ureters. Mild bladder wall thickening is also suggested. These findings may be related to the presence of indwelling stents. - UA does not appear severely infected, pt finished course of antibiotics yesterday after her previous hospitalization earlier this month, given a dose of ceftriaxone in the ER, will give empirically with 48 hr stop, last UCx grew soriano sensitive e.coli. - Continue with macrobid 100 mg HS x 7 days - No WBC, afebrile - Consult urology -Dr. Friend - november 23 pt was already scheduled for lithotripsy, no need at this time for IR percutaneous stenting, will continue with pain management and plan to move up procedure for a sooner date. They will see her in the office this week. Follow up has been requested - Fluids off - Possible that this is contributing to the pain of her right hip, has hx of T11 compression fracture and chronic pain. Will send home with tramadol prn for a few days. Ortho saw the patient, no needs for further imaging, ambulatory. (2) Nephrolithiasis: - Hx of such, noted in CT as above - Continue supportive care with fluids, tylenol for pain prn- now pain resolve, improved. (3) UTI (urinary tract infection): - Ceftriaxone x 1 given in the ER, 48 hr empirical tx. - transition to macrobid (4) History of right hip hemiarthroplasty: - s/p R CALDERON on 09/14/[address] Bader, stable, no changes in r hip arthroplasty as per imaging with xray, no recent known mechanical injury - Check CT of the R hip as pt with significant pain with R internal rotation, question if there is a labrum tear? - No septic joint - Appreciate ortho consultation -Tylenol scheduled and IV morphine prn for analgesia, holding ibuprofen (5) Hypertension: - Continue lisinopril 20 mg daily, asa 81 mg daily -Bp well controlled presently (6) Hyperlipidemia: - Continue atorvastatin 20 mg daily (7) Glaucoma: (8) Anxiety: (9) Depression: -Continue Cymbalta 20 mg daily -Melatonin 5 mg for sleep, hold during this admission and resume upon discharge (10) Rheumatoid arthritis: -Continue sulfasalazine and prednisone (11) Osteoarthritis: -Continue Tylenol 1000 mg every 8 hours control (12) Severe protein-calorie malnutrition: -Heart healthy diet -Albumin 2.9, will order boost 3 times daily with meals and at bedtime (13) DVT prophylaxis: -Teds CODE STATUS: DNR Disposition: Patient from home, lives alone, discharge home today. Total Time Total Time Spent Total Time Spent (In Minutes): 45 Discharge Plan Discharge Items Patient Disposition: Home - Self-Care Reason For Visit: HYDRONEPHROSIS Discharge Diagnosis: R hydronephrosis, Nephrolithiasis of right ureter, bilateral stents Condition on Discharge: Good Activity: Resume your previous activity Lifting: Gradually increase as tolerated Bathing: No limitations Exercise/Sports: Gradually increase as tolerated Driving/Machine Use: Resume 1 day after discharge Non-emergency contact: Primary Care Provider and Urologist Call non-emergency contact if: you have any medication questions, your symptoms worsen, your pain is not controlled, your pain is worsening and you have a fever Follow-up/Referrals: Kong Friend MD [Physician] - (Within 1 week for stent exchange and right nephrolithiasis lithotripsy) Ben Schmidt [Primary Care Provider] - (Within 2 weeks) Diet: Heart Healthy Addtl Attending Provider Instructions: You were admitted to [facility] due to uncontrollable pain in the right low back and hip and diagnosed with Right hydronephrosis and a kidney stone measuring 5 mm in the Right ureter. You already have bilateral stents which were likely causing you pain. The right sided hydronephrosis (water around the kidney) is likely being caused by the kidney stone which will eventually need to be removed by urology. During your stay here you were treated with supportive care and medications, including an antibiotic for possible infection, and your symptoms improved. Imaging studies which were completed include CT of the abdomen and pelvis, which showed the kidney stone and hydronephrosis. You should continue taking antibiotics for prophylaxis against infection until you are seen in follow up with urology or for 7 days. Medications: Continue taking you medications as prescribed including the following: Tramadol 50 mg twice daily as needed for pain Nitrofurantoin 100 mg at bedtime x 7 days Appointments: Follow up with PCP within 2 weeks, an appointment has been requested for you. Follow up with urology within 1 week, an appointment has been requested for you. Pending Studies at Discharge: No Stand-Alone Forms: My [facility] [employer], Smoking Cessation Medications and DC Order Prescriptions: New tramadol 50 mg tablet 50 mg PO BID PRN (Reason: pain) Qty: 10 RF: 0 nitrofurantoin macrocrystal 100 mg capsule 100 mg PO HS Qty: 7 RF: 0 Continued polyethylene glycol 3350 [Miralax] 17 gram Powder In Packet 17 g PO QAM PRN (Reason: Constipation) RF: 0 melatonin 2.5 mg/10 mL Liquid 5 mg PO HS RF: 0 tamsulosin 0.4 mg Capsule 0.4 mg PO HS Qty: 30 RF: 0 aspirin [Ecotrin Low Strength] 81 mg Tablet,Delayed Release (Dr/Ec) 81 mg PO BID Qty: 60 RF: 0 lisinopril 20 mg Tablet 20 mg PO QAM RF: 0 Centrum Silver Women 8 mg iron-400 mcg-300 mcg Tablet 1 tab PO QAM RF: 0 prednisone 10 mg tablet 5 mg PO QAM RF: 0 atorvastatin 20 mg tablet 20 mg PO QAM RF: 0 sulfasalazine 500 mg tablet,delayed release (DR/EC) 500 mg PO BID RF: 0 duloxetine 20 mg capsule,delayed release(DR/EC) 20 mg PO QAM RF: 0 cholecalciferol (vitamin D3) [Vitamin D3] 50 mcg (2,000 unit) Capsule 50 mcg PO QAM RF: 0 acetaminophen [Tylenol Extra Strength] 500 mg Tablet 500 mg PO Q6H PRN (Reason: Pain) RF: 0 Discontinued ibuprofen 200 mg Tablet 200 mg PO Q6H PRN (Reason: Pain) RF: 0 cefdinir 300 mg capsule 300 mg PO BID RF: 0 Discharge Orders: Discharge Order (Routine); Ordered 11/13/19 Ordered By: Joellen Russell Admission Data Admit Date/Time: 11/12/19 13:18 Attending Provider: Eliu Ellis Admit Provider: Ekaterina Montilla Primary Care Provider: Ben Schmidt Other Providers: Ekaterina Montilla ; Kong Friend ; Albert Santana Other Interventions: Discharge Summary Assessment (RN) Last Done: 11/13/19 12:25 Coding Level of Care Code D/C Day Management >30 mins Diagnoses Hydronephrosis, right N13.30 Nephrolithiasis N20.0 UTI (urinary tract infection) N39.0 Hematuria presence: without hematuria Urinary tract infection type: site unspecified History of right hip hemiarthroplasty Z96.641 Hypertension I10 Hyperlipidemia E78.5 Hyperlipidemia type: unspecified Glaucoma H40.9 Glaucoma type: unspecified Laterality: unspecified laterality Anxiety F41.9 Depression F33.9 Active/Remission status: remission status unspecified Depression Type: major depressive disorder Major depression recurrence: recurrent Rheumatoid arthritis M06.9 Rheumatoid arthritis location: unspecified site Rheumatoid factor presence: unspecified presence Osteoarthritis M19.90 Severe protein-calorie malnutrition E43 DVT prophylaxis Z29.9
== END 2019-11-13 14:30 | disposition home or self-care (01) | DRG 693 ==
LOC: ED 08:21 → 4W 13:18 → SUATTDRO 13:18 → 4W 13:40

== ENCOUNTER 2019-11-24 10:34 | Inpatient (IN) ==
--- NOTE | 2019-11-15 11:11 | PAT Medication Instructions ---
Medication Instructions Date of Service November 15, 2019 Home Medications Medication Instructions Recorded aspirin [Ecotrin Low Strength] 81 mg PO BID #60 tab 10/02/19 tamsulosin 0.4 mg PO HS #30 cap 10/02/19 nitrofurantoin macrocrystal 100 mg PO HS #7 cap 11/13/19 tramadol [Ultram] 50 mg PO Q8H PRN #10 tab 11/13/19 Centrum Silver Women 1 tab PO QAM atorvastatin 20 mg PO QAM cholecalciferol (vitamin D3) [Vitamin D3] 50 mcg PO QAM duloxetine 20 mg PO QAM prednisone 5 mg PO QAM sulfasalazine 500 mg PO BID melatonin 5 mg PO HS polyethylene glycol 3350 [Miralax] 17 g PO QAM PRN aspirin [Ecotrin Low Strength] 81 mg PO BID tamsulosin 0.4 mg PO HS lisinopril 20 mg PO QAM acetaminophen [Tylenol Extra Strength] 500 mg PO Q6H PRN nitrofurantoin macrocrystal 100 mg PO HS tramadol [Ultram] 50 mg PO Q8H PRN Continue as directed nitrofurantoin macrocrystal 100 mg PO HS ASK your prescriber and surgeon aspirin [Ecotrin Low Strength] 81 mg PO BID sulfasalazine 500 mg PO BID DO NOT take the morning of surgery lisinopril 20 mg PO QAM polyethylene glycol 3350 [Miralax] 17 g PO QAM PRN cholecalciferol (vitamin D3) [Vitamin D3] 50 mcg PO QAM Centrum Silver Women 1 tab PO QAM Take morning of surgery With a small sip of water, OTHERWISE NOTHING TO EAT OR DRINK AFTER MIDNIGHT: tramadol [Ultram] 50 mg PO Q8H PRN (okay to take up to 4 hours prior to surgery if needed) acetaminophen [Tylenol Extra Strength] 500 mg PO Q6H PRN (okay to take up to 4 hours prior to surgery if needed) duloxetine 20 mg PO QAM prednisone 5 mg PO QAM atorvastatin 20 mg PO QAM Take evening before surgery tramadol [Ultram] 50 mg PO Q8H PRN (if needed) acetaminophen [Tylenol Extra Strength] 500 mg PO Q6H PRN (if needed) tamsulosin 0.4 mg PO HS melatonin 5 mg PO HS Other Notes If you have any questions please call us at [phone] or [phone] or [phone] or [phone]
--- NOTE | 2019-11-16 11:56 | Anesthesiology Consultation ---
Date of Service November 16, 2019 Assessment & Plan (1) Encounter for pre-operative examination: *H/O PONV* Chart Review Chart Review: Acceptable Risk for Surgery and Patient seen in Pre Admission Testing Teaching & Discussion Instructed NPO after midnight before surgery, except medications with 15 cc of water. Medication instructions provided according to the PAT guidelines. History Surgery Operation Date: 11/24/19 09:45 Proposed Procedures p Cystoscopy, Right Ureteronephroscopy, Retrograde Pyelogram with Possible Ureteral Dilation, Laser Destruction or Extraction of Stone, Exchange of Stent Catheter - Tejas Arguelles, Height/Weight Height: 5 ft 1 in Weight: 51.2 kg Allergies Allergy/AdvReac Type Severity Reaction Status Date / Time Sulfa (Sulfonamide Allergy Intermediate Rash Verified 11/12/19 10:47 Antibiotics) mirabegron [From Myrbetriq] AdvReac Intermediate hypertensio Verified 11/12/19 10:47 n nicotine AdvReac Mild PATCH-SKIN Verified 11/12/19 10:47 IRRITATION shrimp AdvReac Mild Photosensit Verified 11/12/19 10:47 ivity Medications Home Medications Medication Instructions Recorded Confirmed Last Taken Centrum Silver Women 1 tab PO QAM 07/06/18 11/12/19 11/12/19 atorvastatin 20 mg PO QAM 09/05/19 11/12/19 11/12/19 cholecalciferol (vitamin D3) 50 mcg PO QAM 09/05/19 11/12/19 11/12/19 [Vitamin D3] duloxetine 20 mg PO QAM 09/05/19 11/12/19 11/12/19 prednisone 5 mg PO QAM 09/05/19 11/12/19 11/12/19 sulfasalazine 500 mg PO BID 09/05/19 11/12/19 11/12/19 melatonin 5 mg PO HS 09/28/19 11/12/19 11/11/19 polyethylene glycol 3350 [Miralax] 17 g PO QAM PRN 09/28/19 11/12/19 10/27/19 aspirin [Ecotrin Low Strength] 81 mg PO BID #60 tab 10/02/19 11/12/19 11/12/19 tamsulosin 0.4 mg PO HS #30 cap 10/02/19 11/12/19 11/11/19 lisinopril 20 mg PO QAM 11/11/19 11/12/19 11/12/19 acetaminophen [Tylenol Extra 500 mg PO Q6H PRN 11/12/19 11/12/19 11/12/19 Strength] 1000 mg nitrofurantoin macrocrystal 100 mg PO HS #7 cap 11/13/19 Unknown tramadol [Ultram] 50 mg PO Q8H PRN #10 tab 11/13/19 Unknown Past Medical History Medical History (Updated 11/16/19 @ 16:25 by Constantine Berger) Anxiety (Chronic) Depression (Chronic) Glaucoma (Chronic) Hearing deficit (Chronic) BL ROMERO Hyperlipidemia (Chronic) Kidney stones (Chronic) Osteoarthritis (Chronic) Rheumatoid arthritis (Chronic) Urinary incontinence Exercise / Class Metabolic Activity III < 4 Walking/Shop/Light housework (Denies CP or SOB with ambulation, uses cane) Past Surgical History Surgical History Hip fracture requiring operative repair History of cataract surgery (Resolved) left History of colonoscopy (Resolved) History of lithotripsy (Resolved) x 2 History of tooth extraction (Resolved) Nausea and vomiting after administration of anesthetic agent Status post cystoscopy with ureteral stent placement 10/28/2019 [facility] Past Anesthesia History No Hx of Anesthesia Complications and No Family Hx of Anesthesia Complications History of PONV No Hx of Motion Sickness and History of PONV Social History Smoking Status: Former smoker tobacco type: cigarettes Smoking cigarettes per day: 1/2 ppd Do You Dip or Chew Tobacco: No Smoking End Date: 09/14/2019 Hx Alcohol Use: Yes Alcohol type: wine alcohol intake frequency: holidays/special occasions only Hx Substance Use: No substance use type: does not use Review of Systems Pt denies any recent chest pain, shortness of breath, palpitations, cough, fever or URI. Physical Exam Vital Signs BP: 129/68 P: 74bpm SPO2: 95% RA T: 98.3 R: 12 ENMT Mouth: + dentures (upper full, partial lower denture) and + small oral opening; no chipped teeth and no loose teeth Thyromental Distance: < 3.5 Finger Breadths (3) Mallampati Class: II Neck normal visual inspection; neck extension not limited Respiratory normal respiratory effort Auscultation: lungs clear to auscultation bilaterally Cardiovascular Rate/Rhythm: regular rate and regular rhythm Heart Sounds: no murmur Extremities: no edema Testing Laboratory Results 11/13/19 WBC: 6.81 H/H: 10.5/33.2 PLATELETS: 382 SODIUM: 135 POTASSIUM: 4.4 CHLORIDE: 104 CO2: 28 BUN: 14 CREATININE: 0.77 GLUCOSE: 97 Electrocardiogram Date: 11/12/19 Findings: + NSR @ (84bpm) Possible left atrial alignment. Poor R wave progression, consider anterior AR versus lead placement versus LVH. Compared with EKG of 09/28/2019, minimal criteria for inferior infarct are no longer present. T wave inversion no longer evident in lateral leads. Chest X-Ray Date: 11/12/19 Findings: + NAD and + cardiomegaly
[~2019-11-24 10:34] MED LIST changes: -ACET-1256 PO; -ASPI81TA28 PO; -ATOR-22 PO; +CEFAZOLIN 2000MG 2,000 MG/15 ML SYR IV SCH; -DIPH-437 PO; -FLUO40CA8 PO; +LR 15ML/HR IV SCH; -MELO7.5T5 PO; -MULT-513 PO; -OXYC-57 PO; -TRAV0.00 OP
[2019-11-24] MEDS ORDERED: fentaNYL citrate 100 MCG/2 ML VIAL IV ONE (11:08)
--- NOTE | 2019-11-24 11:47 | History & Physical Bridge Note ---
Date of Service November 24, 2019 History & Physical Bridge Note I have examined the patient, reviewed the History & Physical and in the interval since the performance of the History & Physical I have noted the following changes of clinical significance: no changes noted
[2019-11-24] MEDS ORDERED: ONDANSETRON INJ 2 MG/ML 2 ML VIAL IV PRN (12:04)
[2019-11-24] MEDS ORDERED: HYDROmorphone INJ 1 MG/ML SYRINGE IV PRN (12:04)
[2019-11-24] MEDS ORDERED: ATROPINE SULFATE 0.1 MG/ML 10ML SYR IV PRN (12:04)
[2019-11-24] MEDS ORDERED: ePHEDrine sulfate 50 MG/ML AMP IV PRN (12:04)
--- NOTE | 2019-11-24 12:04 | Anesthesiology Progress Note ---
Date of Service November 24, 2019 Anesthesia Post Procedure Vital Signs Vital Signs: Temp Pulse Resp BP Pulse Ox 11/24/19 11:21 36.6 C 89 20 148/68 H 96 Pain Intensity Lower Back: Pain Intensity: 10 Transfer of Care Handoff Completed per policy Notes Mental Status: alert / awake / arousable and participated in evaluation Patient Amnestic to Procedure: Yes Nausea / Vomiting: adequately controlled Pain: adequately controlled Airway Patency, RR, SpO2: stable & adequate BP & HR: stable & adequate Hydration State: stable & adequate Anesthetic Complications: no major complications apparent and Pt Satisfied with anesthetic care
[2019-11-24] MEDS ORDERED: ONDANSETRON INJ 2 MG/ML 2 ML VIAL ONE (13:24)
[2019-11-24] MEDS ORDERED: PROPOFOL IV EMULSION 10 MG/ML 20 ML VIAL IV ONE (13:24)
[2019-11-24] MEDS ORDERED: fentaNYL citrate 100 MCG/2 ML VIAL ONE (13:24)
[2019-11-24] MEDS ORDERED: LIDOCAINE HCL 2% 2 ML VIAL/AMP(20MG/ML) INFIL ONE (13:24)
[2019-11-24] MEDS ORDERED: IOTHALAMATE MEGLUMINE II 17.2% 250 ML VIAL ONE (13:53)
--- NOTE | 2019-11-24 14:17 | Operative Report ---
PG Post Operative Report Pre & Post Diagnosis Operation Date: 11/24/19 12:40 Pre-Op Diagnosis: Right Ureteral Obstruction Post-Op Diagnosis: Right Ureteral Obstruction I identified the patient and participated in the time-out.: Yes Procedure Operation Date: 11/24/19 12:40 Actual Procedures p Cystoscopy, Right Ureteronephroscopy, Retrograde Pyelogram; Laser Destruction of stone; Extraction of Stone, Exchange of Stent Catheter(Right) - Tejas Arguelles DO Surgeon Tejas Arguelles, II, DO Veneer Clipper None Estimated Blood Loss 1 Findings Consistent with Post-Op Diagnosis Stone destroyed to dust and small fragments and larger fragments removed. Specimens Stone Fragments Drains 6 Fr Multilength Anesthesia Type General Complications none Disposition Disposition: Recovery Room Indications Patient with bothersome stones. Risks and benefits discussed at length. Description of Procedure Patient was consented and brought back to the operating room. Patient was placed under anesthesia in the supine position and moved to the dorsal lithotomy position. Patient was prepped and draped in the regular sterile fashion. A time out was completed. A 30degree Cystoscope was placed into the bladder and the entire bladder was examined. The UO's were identified. The right stent was grasped and partially removed. The UO was cannulized with a catheter over the wire and a retrograde pyelogram was completed. A wire was then placed. The Rigid ureteroscope was taken into the ureter. The stone was identified. The large distal stone was then grasped and removed and sent for analysis. The entire area was once again examined. No residual large fragments or areas of concern were noted in the ureter. The rigid scope was removed after a second wire was placed and a flexible scope was taken over one of the wires to the renal pelvis. Small stones were discovered in the renal pelvis. These were pulverized to dust and small fragments. No additional stones were discovered. The scope was slowly removed with the wire left in place. Contrast was placed through the scope for a pyelogram to assist in stent placement. The entire ureter was examined as the scope was slowly removed. No obstructions or other areas of concern were noted. With the wire in place, a 6 Fr Double J stent was placed. It was confirmed with fluoroscopy. With the stent in place, the bladder was emptied. The scope was removed. The patient was cleaned, aroused from anesthesia, and transferred to the pacu in stable condition having tolerated the procedure well with no complications. I was present and participated in all aspects of the procedure. The patient will be monitored in the PACU until transferred. I attest to the content of the Intraoperative Record and any orders documented therein. Any exceptions are noted below.
[2019-11-24] MEDS: fentaNYL citrate 100 MCG/2 ML VIAL IV PRN ×2 (14:41→14:51)
--- NOTE | 2019-11-24 14:51 | Fluoroscopy Report ---
INTRAOPERATIVE RADIOGRAPHS CLINICAL HISTORY: Right-sided retrograde ureterogram, laser lithotripsy, and ureteral stent placement . Fluoroscopy time: 44 seconds. FINDINGS: 3 spot fluoroscopic views of the abdomen from a retrograde ureterogram and lithotripsy proc edure are correlated with abdominal CT dated 11/12/2019. The initial image shows a left ureteral stent in place with a large nonobstructing calculus in the lower pole of the left kidney. A catheter an li thotripsy device project over the right renal pelvis which is hydronephrotic. The second 2 images khoi w the proximal and distal ends of both ureteral stents in appropriate position. No calcifications are clearly seen along the course of the stents. IMPRESSION: Intraoperative images as above. Electronically signed by: Jose F Cohn M.D. 11/24/2019 2:50 PM
--- NOTE | 2019-11-24 15:13 | Anesthesiology Progress Note ---
Date of Service November 24, 2019 Anesthesia Post Procedure Vital Signs Vital Signs: Temp Pulse Pulse Resp BP Pulse Ox 11/24/19 15:05 37.4 C 78 16 115/54 L 96 11/24/19 14:55 37.4 C 78 14 133/66 97 11/24/19 14:45 78 12 159/71 H 100 11/24/19 14:35 37.1 C 83 15 163/89 H 99 11/24/19 14:25 37.1 C 15 178/79 H 99 11/24/19 11:21 36.6 C 89 20 148/68 H 96 Pain Intensity Lower Back: Pain Intensity: 2 Transfer of Care Handoff Completed per policy Notes Mental Status: alert / awake / arousable and participated in evaluation Patient Amnestic to Procedure: Yes Nausea / Vomiting: adequately controlled Pain: adequately controlled Airway Patency, RR, SpO2: stable & adequate BP & HR: stable & adequate Hydration State: stable & adequate Anesthetic Complications: no major complications apparent and Pt Satisfied with anesthetic care
[2019-11-24] MEDS ORDERED: OXYCODONE/APAP 7.5/325MG TAB ONE (15:33)
[2019-11-24] MEDS ORDERED: HYDROmorphone INJ 0.5 MG/0.5 ML SYR IV STA (15:55)
[2019-11-24] MEDS ORDERED: POLYETHYLENE (MIRALAX) 17 GM PACK PO PRN (18:47)
[2019-11-24] MEDS ORDERED: ACETAMINOPHEN 500 MG TAB PO PRN (18:47)
[2019-11-24] MEDS ORDERED: SODIUM CHLORIDE 0.9% 1000ML 1,000 ML IV SCH (18:47)
--- NOTE | 2019-11-24 19:19 | Hospitalist Consultation ---
Date of Consultation November 24, 2019 Assessment & Plan (1) Syncope: Uncertain etiology Possibly related to medications given during OR CBC, PRP, Mg, Phos, TSH, EKG, trop pending Hb 10.5 on 11/12 (2) History of right hip hemiarthroplasty: Hip pain, states started with renal stones (3) UTI (urinary tract infection): Macrobid x7 days per urology (4) Nephrolithiasis: s/p cystoscopy and stent on 11/23 As per urology (5) Hypertension: continue home meds (6) Urinary incontinence: Chronic issue (7) Hyperlipidemia: continue home meds (8) Anxiety: continue home meds (9) Depression: continue home meds (10) Hearing deficit: Noted (11) Tobacco use: Quit x3 months (12) DVT prophylaxis: As per urology History of Present Illness Attending Physician: Tejas Arguelles, II, DO History of Present Illness 89 y/o F who was admitted on 11/23 s/p cystoscopy and stent and laser for R renal stone with Dr. Evans. Pt apparently had a syncopal episode around 5p as they were moving pt to wheelchair for d/c s/p procedure. I was not alerted about this consult by PACU, but rather around 6:50p when she was transferred to the floor. Family states pt "fainted". Pt states she "didn't quite pass out". She feels fine at present other than R sided low back pain moving into her hip, which she has had since these ongoing issues with renal stones. Tolerating PO without issue. Pt denies fever, SOB, chest pain, abd pain, n/v/c/d, LE swelling. Denies dysuria. Has ongoing incontinence issues which are at baseline. Allergies Allergy/AdvReac Type Severity Reaction Status Date / Time Sulfa (Sulfonamide Allergy Intermediate Rash Verified 11/24/19 11:10 Antibiotics) mirabegron [From Myrbetriq] AdvReac Intermediate hypertensio Verified 11/24/19 11:10 n nicotine AdvReac Mild PATCH-SKIN Verified 11/24/19 11:10 IRRITATION shrimp AdvReac Mild Photosensit Verified 11/24/19 11:10 ivity Home Medications Home Medications Medication Instructions Recorded Confirmed Type Centrum Silver Women 1 tab PO QAM 07/06/18 11/24/19 History atorvastatin 20 mg PO QAM 09/05/19 11/24/19 History cholecalciferol (vitamin D3) 50 mcg PO QAM 09/05/19 11/24/19 History [Vitamin D3] duloxetine [Cymbalta] 20 mg PO QAM 09/05/19 11/24/19 History prednisone 5 mg PO QAM 09/05/19 11/24/19 History sulfasalazine 500 mg PO BID 09/05/19 11/24/19 History melatonin 5 mg PO HS 09/28/19 11/24/19 History polyethylene glycol 3350 [Miralax] 17 g PO QAM PRN 09/28/19 11/24/19 History aspirin [Ecotrin Low Strength] 81 mg PO BID #60 tab 10/02/19 11/24/19 Rx tamsulosin 0.4 mg PO HS #30 cap 10/02/19 11/24/19 Rx lisinopril 20 mg PO QAM 11/11/19 11/24/19 History acetaminophen [Tylenol Extra 500 mg PO Q6H PRN 11/12/19 11/24/19 History Strength] nitrofurantoin macrocrystal 100 mg PO HS #7 cap 11/13/19 11/24/19 Rx tramadol [Ultram] 50 mg PO Q8H PRN #10 tab 11/13/19 11/24/19 Rx ketorolac 10 mg PO Q8H 4 Days #12 tab 11/24/19 Rx Patient History Medical History Anxiety (Chronic) Depression (Chronic) Glaucoma (Chronic) Hearing deficit (Chronic) BL ROMERO Hyperlipidemia (Chronic) Kidney stones (Chronic) Osteoarthritis (Chronic) Rheumatoid arthritis (Chronic) Urinary incontinence Surgical History Hip fracture requiring operative repair History of cataract surgery (Resolved) left and right History of colonoscopy (Resolved) History of lithotripsy (Resolved) x 2 History of tooth extraction (Resolved) Nausea and vomiting after administration of anesthetic agent Status post cystoscopy with ureteral stent placement 10/28/2019 [facility] Family History Other No pertinent family history in first degree relatives Social History (Updated 11/24/19 @ 19:18 by Yanely French DO) Preferred Language: Armenian Communication Ability: Effective Visual Impairment: No Limitations Governor Assembler Required: No Beliefs That Will Affect Care: None marital status: / Current Living Situation: Alone Other Information That Helps Us Care for You: No Feels Safe at Home: Yes Safety Concerns: Feels Safe At This Time Smoking Status: Former smoker Tobacco Type: cigarettes ; Cigarettes Per Day: 1/2 ppd ; Do You Dip or Chew Tobacco: No ; Smoking End Date: 09/14/2019 ; Second Hand Exposure: Yes ( WAS A SMOKER) ; Tobacco Cessation Education Requested by Patient: No Hx Alcohol Use: Yes Alcohol type: wine Alcohol Intake Frequency Comment: occasional Hx Substance Use: No Review of Systems Review of Systems: Pertinent positives and negatives reviewed in HPI--all others negative Physical Exam Constitutional: WD/WN, vitals as above Eyes: normal visual gurrola by confrontation and + anicteric sclerae Neck: normal visual inspection and trachea midline Respiratory: normal respiratory effort, lungs clear to auscultation Cardiovascular: Rate/Rhythm: regular rate and regular rhythm Gastrointestinal (Abdomen): Inspection/Auscultation: abdomen not distended Percussion/Palpation: abdomen soft; abdomen nontender Musculoskeletal: Head/Neck/Chest: normocephalic and head atraumatic negative for edema, peripheral pulses intact Skin: no rashes, warm and dry Neurologic: awake; not confused Speech / Cognition: normal speech Psychiatric: A+Ox3, euthymic affect Results & Data ([facility]) Vital Signs (Past 12 Hours) Vital Signs Temp Pulse Pulse Resp BP Pulse Ox 11/24/19 18:44 36.7 C 97 H 18 154/68 H 90 11/24/19 18:00 36.8 C 95 H 18 129/57 L 92 11/24/19 17:35 86 18 92/50 L 95 11/24/19 16:50 37.2 C 18 136/60 98 11/24/19 16:20 85 18 144/63 H 97 11/24/19 15:50 79 18 169/89 H 95 11/24/19 15:20 37 C 84 18 120/54 L 95 11/24/19 15:05 37.4 C 78 16 115/54 L 96 11/24/19 14:55 37.4 C 78 14 133/66 97 11/24/19 14:45 78 12 159/71 H 100 11/24/19 14:35 37.1 C 83 15 163/89 H 99 11/24/19 14:25 37.1 C 15 178/79 H 99 11/24/19 11:21 36.6 C 89 20 148/68 H 96 PG Care Time/CCT Total # of Minutes Spent Total Time Spent with Patient: Total time spent is greater than 50% in coordination of care (as documented) at patient's floor/unit and/or counseling patient: Coding Level of Care Code 79988 Inpt Consult Level 5 Diagnoses Syncope R55 History of right hip hemiarthroplasty Z96.641 UTI (urinary tract infection) N39.0 Hematuria presence: without hematuria Urinary tract infection type: site unspecified Nephrolithiasis N20.0 Hypertension I10 Urinary incontinence R32 Hyperlipidemia E78.5 Hyperlipidemia type: unspecified Anxiety F41.9 Depression F33.9 Depression Type: major depressive disorder Major depression recurrence: recurrent Active/Remission status: remission status unspecified Hearing deficit H91.90 Tobacco use Z72.0 DVT prophylaxis Z29.9 (1) UTI (urinary tract infection) Hematuria presence: without hematuria Urinary tract infection type: site unspecified Qualified Code(s): N39.0 - Urinary tract infection, site not specified (2) Hyperlipidemia Hyperlipidemia type: unspecified Qualified Code(s): E78.5 - Hyperlipidemia, unspecified (3) Depression Depression Type: major depressive disorder Major depression recurrence: recurrent Active/Remission status: remission status unspecified Qualified Code(s): F33.9 - Major depressive disorder, recurrent, unspecified
[2019-11-24] MEDS: TRAMADOL HCL 50 MG TABLET PO PRN (19:33)
[2019-11-24 19:55] LABS: Basophils # (auto) 0.02 K/uL (0-0.2); Basophils % (auto) 0.2 %; Eosinophils # (auto) 0.03 K/uL (0-0.5); Eosinophils % (auto) 0.2 %; Hematocrit (blood only) 35.5 % (37-47); Hemoglobin 11.8 g/dL (12.0-16.0); Immature Granulocytes # (auto) 0.04 K/uL (0.00-0.02); Immature Granulocytes % (auto) 0.3 %; Lymphocytes # (auto) 0.26 K/uL (1.2-3.4); Mean Corpuscular Hemoglobin 33.8 pg (25-34); Mean Corpuscular Hgb Conc 33.2 g/dL (32-36); Mean Corpuscular Volume 101.7 fL (80-100); Mean Platelet Volume 9.2 fL (7.4-10.4); Monocytes # (auto) 0.07 K/uL (0.11-0.59); Monocytes % (auto) 0.5 %; Neutrophils # (auto) 12.67 K/uL (1.4-6.5); Neutrophils % (auto) 96.8 %; Platelet Count 307 K/uL (130-400); RDW Coefficient of Variation 15.4 % (11.5-14.5); RDW Standard Deviation 56.9 fL (36.4-46.3); Red Blood Count 3.49 M/uL (4.2-5.4); White Blood Count 13.09 K/uL (4.8-10.8)
[2019-11-24 20:11] LABS: BUN Creatinine Ratio 20.8 (10-20); Calcium 8.9 mg/dl (8.5-10.1); Creatinine Clr Calc Pharmacy 34.7 ml/min; Est GFR (African American) 74.6; Est GFR (Non-African American) 64.3; Magnesium 1.5 mg/dl (1.8-2.4); Potassium 3.9 mmol/L (3.5-5.1)
[2019-11-24 20:21] LABS: Phosphorus 2.7 mg/dl (2.5-4.9); Thyroid Stimulating Hormone 4.37 uIu/ml (0.300-4.500); Troponin I 0.021 ng/ml (0-0.045)
[2019-11-24] MEDS ORDERED: NON-FORMULARY MEDICATION (Melatonin 5 MG) PO SCH (21:00)
[2019-11-24] MEDS: TAMSULOSIN HCL 0.4 MG CAP PO SCH (21:10)
[2019-11-24] MEDS: nitrofurantoin macrocrystaL 50 MG CAP PO SCH (21:10)
[2019-11-24] MEDS: OXYCODONE/ACETAMINOPHEN 5mg/325mg TAB PO PRN (21:10)
[2019-11-24] MEDS: ASPIRIN 81 MG ECTAB PO SCH (21:10)
[2019-11-24] MEDS: sulfaSALAzine 500 MG TABEC PO SCH (21:10)
[2019-11-24] MEDS: SODIUM CHLORIDE 0.9% 1000ML 1,000 ML IV SCH (22:45)
[2019-11-25] MEDS: OXYCODONE/ACETAMINOPHEN 5mg/325mg TAB PO PRN ×3 (05:12→20:19)
[2019-11-25] MEDS ORDERED: MAGNESIUM SULFATE / D5W 1 GM/100 ML BAG IV STA (08:16)
--- NOTE | 2019-11-25 08:27 | Anesthesiology Progress Note ---
Date of Service November 25, 2019 Anesthesia Post Procedure Vital Signs Vital Signs: Temp Pulse Pulse Pulse Resp BP BP 11/25/19 07:07 36.3 C L 90 18 155/58 H 11/25/19 03:52 83 180/67 H 11/25/19 03:30 36.9 C 88 18 174/79 H 11/24/19 23:00 36.6 C 90 16 101/61 11/24/19 21:50 36.8 C 96 H 16 99/58 L 11/24/19 20:59 36.7 C 94 H 16 122/69 11/24/19 19:59 106 H 16 110/64 11/24/19 19:50 11/24/19 19:30 103 H 16 108/55 L 11/24/19 18:44 36.7 C 97 H 18 154/68 H 11/24/19 18:00 36.8 C 95 H 18 129/57 L 11/24/19 17:35 86 18 92/50 L 11/24/19 16:50 37.2 C 18 136/60 11/24/19 16:20 85 18 144/63 H 11/24/19 15:50 79 18 169/89 H 11/24/19 15:20 37 C 84 18 120/54 L 11/24/19 15:05 37.4 C 78 16 115/54 L 11/24/19 14:55 37.4 C 78 14 133/66 11/24/19 14:45 78 12 159/71 H 11/24/19 14:35 37.1 C 83 15 163/89 H 11/24/19 14:25 37.1 C 15 178/79 H 11/24/19 11:21 36.6 C 89 20 148/68 H Pulse Ox Pulse Ox 11/25/19 07:07 93 11/25/19 03:52 11/25/19 03:30 98 11/24/19 23:00 96 11/24/19 21:50 95 11/24/19 20:59 96 11/24/19 19:59 93 11/24/19 19:50 93 11/24/19 19:30 90 11/24/19 18:44 90 11/24/19 18:00 92 11/24/19 17:35 95 11/24/19 16:50 98 11/24/19 16:20 97 11/24/19 15:50 95 11/24/19 15:20 95 11/24/19 15:05 96 11/24/19 14:55 97 11/24/19 14:45 100 11/24/19 14:35 99 11/24/19 14:25 99 11/24/19 11:21 96 Pain Intensity Lower Back: Pain Intensity: 8 Right Flank: Pain Intensity: 10 Notes Mental Status: alert / awake / arousable and participated in evaluation Patient Amnestic to Procedure: Yes Nausea / Vomiting: adequately controlled Pain: adequately controlled Airway Patency, RR, SpO2: stable & adequate BP & HR: stable & adequate Hydration State: stable & adequate Anesthetic Complications: no major complications apparent and Pt Satisfied with anesthetic care
[2019-11-25 08:45] LABS: Hemoglobin 10.9 g/dL (12.0-16.0); Mean Corpuscular Hgb Conc 32.1 g/dL (32-36); Mean Platelet Volume 9.2 fL (7.4-10.4); Platelet Count 269 K/uL (130-400); RDW Coefficient of Variation 15.4 % (11.5-14.5)
[2019-11-25] MEDS: CHOLECALCIFEROL 1,000 UNITS 25 MCG TAB PO SCH (08:47)
[2019-11-25] MEDS: sulfaSALAzine 500 MG TABEC PO SCH ×2 (08:48→20:19)
[2019-11-25] MEDS: DULOXETINE HCL 20 MG CAP PO SCH (08:48)
[2019-11-25] MEDS: ASPIRIN 81 MG ECTAB PO SCH ×2 (08:48→20:19)
[2019-11-25] MEDS: predniSONE 5 MG TAB PO SCH (08:48)
[2019-11-25] MEDS: MULTIVITAMIN TAB PO SCH (08:48)
[2019-11-25] MEDS: ATORVASTATIN 20 MG TAB PO SCH (08:49)
[2019-11-25] MEDS ORDERED: lisinopriL 20 MG TAB PO SCH (09:00)
[2019-11-25 09:14] LABS: Blood Urea Nitrogen 16 mg/dl (7-18); Carbon Dioxide 28 mmol/L (21-32); Chloride 103 mmol/L (98-107); Est GFR (African American) 80.5; Est GFR (Non-African American) 69.4; Potassium 4.5 mmol/L (3.5-5.1); Sodium 134 mmol/L (136-145)
[2019-11-25 09:15] LABS: Alanine Aminotransferase 8 U/L (12-78); Albumin Level 2.6 gm/dl (3.4-5.0); Aspartate Aminotransferase 12 U/L (15-37); Calcium 8.2 mg/dl (8.5-10.1); Glucose 87 mg/dl (70-99); Magnesium 1.6 mg/dl (1.8-2.4)
[2019-11-25] MEDS: TRAMADOL HCL 50 MG TABLET PO PRN ×2 (09:16→23:20)
[2019-11-25 09:19] LABS: Albumin Globulin Ratio 0.9 (0.9-2); Alkaline Phosphatase 43 U/L (45-117); Bilirubin,Total 0.4 mg/dl (0.2-1); Globulin 2.9 gm/dl (2.5-4.0); Total Protein 5.6 gm/dl (6.4-8.2); Troponin I < 0.015 ng/ml (0-0.045)
[2019-11-25] MEDS ORDERED: MAGNESIUM SULFATE / D5W 1 GM/100 ML BAG IV ONE (11:30)
--- NOTE | 2019-11-25 12:44 | Urology Progress Note ---
Date of Service November 25, 2019 Assessment & Plan (1) Ureteral obstruction: 89 yo F POD #1 s/p R URS, LL, right stent exchange with Dr. Arguelles. - Doing well today - Expected clinical course reviewed, all questions answered - Likely will stay overnight for further evaluation of syncope, appreciate hospital medicine recs - Follow-up outpatient with our service as scheduled on 12/06 - Will continue to follow while inpatient Subjective 89 yo F POD #1 s/p R URS, LL, right stent exchange with Dr. Arguelles. Pt admitted after procedure yesterday due to post-op pain and episode of syncope. Hospital medicine consulted. Awake, laying in bed. Son at bedside. No issues overnight. No abdominal, flank, or suprapubic pain. Tolerating stent at this time. Voiding spontaneously. Urinary frequency, unchanged from baseline. No dysuria. Hematuria initially, but now notes clear urine. No f/c/n/v. No acute urological concerns at this time. Review of Systems Constitutional: as per Subjective / HPI Gastrointestinal: as per Subjective / HPI Genitourinary: as per Subjective / HPI Physical Exam Constitutional: well developed, well nourished and + thin; no acute distress and not ill appearing Respiratory: normal respiratory effort and able to speak in complete sentences; no respiratory distress and no labored breathing Cardiovascular: Extremities: no pedal edema Gastrointestinal (Abdomen): Inspection/Auscultation: abdomen normal to inspection; abdomen not distended Percussion/Palpation: abdomen soft; abdomen nontender and no guarding Neurologic: moves all extremities and awake Psychiatric: Orientation: alert and oriented x 3 Genitourinary: no CVA tenderness Voiding spontaneously, urine not visualized during exam. Results & Data Vital Signs (Past 12 Hours) Vital Signs Temp Pulse Resp BP Pulse Ox Pulse Ox 11/25/19 10:19 92 11/25/19 07:07 36.3 C L 90 18 155/58 H 93 11/25/19 03:52 83 180/67 H 11/25/19 03:30 36.9 C 88 18 174/79 H 98 PG Care Time/CCT Total # of Minutes Spent Total Time Spent with Patient: Total time spent is greater than 50% in c oordination of care (as documented) at patient's floor/unit and/or counseling patient: Coding Level of Care Code 59298 Subseq Hosp Care Lvl 2 Diagnoses Ureteral obstruction N13.5 Laterality: left (1) Ureteral obstruction Laterality: left Qualified Code(s): N13.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
--- NOTE | 2019-11-25 12:54 | Hospitalist Progress Note ---
Date of Service November 25, 2019 Assessment & Plan (1) Syncope: - Unclear etiology - occurred following urological procedure. - Possibly medication induced vs. vasovagal vs. related to underlying cardiac source. - Trop peaked at 0.021, trended down. EKG showed NSR, no acute ST wave changes. - Echocardiogram pending to evaluate for valvular abnormalities, EF. - Orthostatics showed systolic drop ~20 mmHg; monitor orthostatics daily. - Hold Lisinopril due to intermittent low BPs at rest, re-evaluate in the morning. - Possibly related to dehydration -- NS at 50 cc/hr; caution with IV fluid hydration. (2) History of right hip hemiarthroplasty: - Completed on 09/14/19. - Was receiving home health post op, may require home health at discharge pending PT/OT evaluation. (3) Hypoxia: - Required 2L via NC overnight, now weaned to room air but O2 sat ~88-90%. - H/o longstanding tobacco abuse -- consider possibility of underlying COPD. Has not had PFTs in the past for evaluation. - CXR pending to evaluate to underlying etiology of hypoxia. - Recommend follow up with pulmonology if no improvement. (4) UTI (urinary tract infection): - Most recent UC 10/28 +E. coli. - Macrobid x 7 days per urology. (5) Nephrolithiasis: - S/p cystoscopy and stent placement on 11/24/19. - Management per urology, primary team. (6) Hypertension: - BP has been intermittently low -- will hold Lisinopril in the AM. (7) Urinary incontinence: - Chronic issue. (8) Hyperlipidemia: - Continue home statin. (9) Anxiety: - Continue home Cymbalta. (10) Depression: - Continue home Cymbalta. (11) Rheumatoid arthritis: - Continue home sulfasalazine and prednisone 5 mg daily. - Random cortisol level was 7.51. - Consider addition of stress dose steroids for adrenal insufficiency. (12) Anemia: - Baseline hgb 11-12; macrocytic. - Will order B12 and folate level in the AM. - Acute anemia related to operative losses. (13) Hearing deficit: - Noted. (14) Tobacco use: - longterm tobacco abuse, quit 3 months ago. - Encourage to continue tobacco cessation. (15) Severe protein-calorie malnutrition: - Alb 2.6 -- encourage diet with addition of supplements. (16) DVT prophylaxis: - ASA 81 mg BID; SCDs Mag level 1.6 - ordered mag sulfate 2 gm IV. Dispo: Med/surg; discharge pending syncope evaluation. Admission and Anticipated Discharge Date Admission Date: November 24, 2019 Supervising Physician Co-Signing Physician Notes Attending Attestation - Chart reviewed, care plan d/w PA Hemalatha Burrell. I agree w/ the price components of her documentation. POD #1 - Cystoscopy, Right Ureteronephroscopy, Retrograde Pyelogram; Laser Destruction of stone; Extraction of Stone, Exchange of Stent Catheter by Dr Arguelles. Had syncope following her procedure. Vasovagal? other? agree w/ work-up recommended by Ms Burrell. Eliu Ellis MD Subjective Pt. is doing well today, c/o fatigue and weakness. She has chronic incontinence at home. Most recent BM was on Thursday. Denies chest pain, SOB, repeat syncopal episodes or dizziness. Review of Systems Review of Systems: All systems reviewed & are unremarkable except as noted in HPI & below Constitutional: + fatigue, + weakness and + anorexia; no fever and no chills Respiratory: no cough, no dyspnea and no dyspnea on exertion Cardiovascular: no chest pain, no palpitations and no edema Gastrointestinal: + constipation; no abdominal pain, no nausea and no vomiting Genitourinary: + urinary incontinence; no dysuria, no difficulty urinating, no urinary frequency and no hematuria Musculoskeletal: no back pain and no joint pain Integumentary: no non-healing lesions Physical Exam Physical Exam: General: Resting comfortably, elderly appearing female HEENT: NC/AT; PERRLA with EOMI; [place] conjunctiva, MMM. No erythema of posterior pharynx Neck: Supple and nontender Cardiac: RRR Lungs: room air; rhonchi noted in bilat lower lung gurrola. Abdomen: Bowel normoactive X 4; Nontender to palpation Extremities: Warm. No edema present Neuro: No focal weakness Skin: No rash Results & Data ([facility]) Vital Signs (Past 12 Hours) Vital Signs Temp Pulse Resp BP Pulse Ox Pulse Ox 11/25/19 10:19 92 11/25/19 07:07 36.3 C L 90 18 155/58 H 93 11/25/19 03:52 83 180/67 H 11/25/19 03:30 36.9 C 88 18 174/79 H 98 Laboratory Results 11/25/19 11/25/19 11/25/19 Range/Units 08:32 08:32 08:32 WBC 10.50 (4.8-10.8) K/uL RBC 3.30 L (4.2-5.4) M/uL Hgb 10.9 L (12.0-16.0) g/dL Hct 34.0 L (37-47) % MCV 103.0 H (80-100) fL MCH 33.0 (25-34) pg MCHC 32.1 (32-36) g/dL RDW Std Deviation 58.0 H (36.4-46.3) fL RDW Coeff of Chiara 15.4 H (11.5-14.5) % Plt Count 269 (130-400) K/uL MPV 9.2 (7.4-10.4) fL Immature Gran % (Auto) % Neut % (Auto) % Lymph % (Auto) % [place] % (Auto) % Eos % (Auto) % Baso % (Auto) % Immature Gran # (Auto) (0.00-0.02) K/uL Neut # (Auto) (1.4-6.5) K/uL Lymph # (Auto) (1.2-3.4) K/uL [place] # (Auto) (0.11-0.59) K/uL Eos # (Auto) (0-0.5) K/uL Baso # (Auto) (0-0.2) K/uL Sodium 134 L (136-145) mmol/L Potassium 4.5 D (3.5-5.1) mmol/L Chloride 103 (98-107) mmol/L Carbon Dioxide 28 (21-32) mmol/L Anion Gap 3.0 (3-11) BUN 16 (7-18) mg/dl Creatinine 0.77 (0.6-1.2) mg/dl Est Cr Clr Drug Dosing 37.0 ml/min Est GFR ( Amer) 80.5 Est GFR (Non-Af Amer) 69.4 BUN/Creatinine Ratio 21.0 H (10-20) Glucose 87 (70-99) mg/dl Calcium 8.2 L (8.5-10.1) mg/dl Phosphorus (2.5-4.9) mg/dl Magnesium 1.6 L (1.8-2.4) mg/dl Total Bilirubin 0.4 (0.2-1) mg/dl AST 12 L (15-37) U/L ALT 8 L (12-78) U/L Alkaline Phosphatase 43 L (45-117) U/L Troponin I < 0.015 (0-0.045) ng/ml Total Protein 5.6 L (6.4-8.2) gm/dl Albumin 2.6 L (3.4-5.0) gm/dl Globulin 2.9 (2.5-4.0) gm/dl Albumin/Globulin Ratio 0.9 (0.9-2) TSH (0.300-4.500) uIu/ml Random Cortisol 7.51 mcg/dl Stone Source Stone Weight Stone Composition Stone Composition 2 Major Stone Nidus 11/24/19 11/24/19 11/24/19 Range/Units 19:47 19:47 14:05 WBC 13.09 H (4.8-10.8) K/uL RBC 3.49 L (4.2-5.4) M/uL Hgb 11.8 L (12.0-16.0) g/dL Hct 35.5 L (37-47) % MCV 101.7 H (80-100) fL MCH 33.8 (25-34) pg MCHC 33.2 (32-36) g/dL RDW Std Deviation 56.9 H (36.4-46.3) fL RDW Coeff of Chiara 15.4 H (11.5-14.5) % Plt Count 307 (130-400) K/uL MPV 9.2 (7.4-10.4) fL Immature Gran % (Auto) 0.3 % Neut % (Auto) 96.8 % Lymph % (Auto) 2.0 % [place] % (Auto) 0.5 % Eos % (Auto) 0.2 % Baso % (Auto) 0.2 % Immature Gran # (Auto) 0.04 H (0.00-0.02) K/uL Neut # (Auto) 12.67 H (1.4-6.5) K/uL Lymph # (Auto) 0.26 L (1.2-3.4) K/uL [place] # (Auto) 0.07 L (0.11-0.59) K/uL Eos # (Auto) 0.03 (0-0.5) K/uL Baso # (Auto) 0.02 (0-0.2) K/uL Sodium 133 L (136-145) mmol/L Potassium 3.9 (3.5-5.1) mmol/L Chloride 101 (98-107) mmol/L Carbon Dioxide 27 (21-32) mmol/L Anion Gap 4.0 (3-11) BUN 17 (7-18) mg/dl Creatinine 0.82 (0.6-1.2) mg/dl Est Cr Clr Drug Dosing 34.7 ml/min Est GFR ( Amer) 74.6 Est GFR (Non-Af Amer) 64.3 BUN/Creatinine Ratio 20.8 H (10-20) Glucose 107 H (70-99) mg/dl Calcium 8.9 (8.5-10.1) mg/dl Phosphorus 2.7 (2.5-4.9) mg/dl Magnesium 1.5 L (1.8-2.4) mg/dl Total Bilirubin (0.2-1) mg/dl AST (15-37) U/L ALT (12-78) U/L Alkaline Phosphatase (45-117) U/L Troponin I 0.021 (0-0.045) ng/ml Total Protein (6.4-8.2) gm/dl Albumin (3.4-5.0) gm/dl Globulin (2.5-4.0) gm/dl Albumin/Globulin Ratio (0.9-2) TSH 4.370 (0.300-4.500) uIu/ml Random Cortisol mcg/dl Stone Source Pending Stone Weight Pending Stone Composition Pending Stone Composition 2 Pending Major Stone Nidus Pending PG Care Time/CCT Total # of Minutes Spent Total Time Spent with Patient: Total time spent is greater than 50% in coordination of care (as documented) at patient's floor/unit and/or counseling patient: Coding Level of Care Code 91764 Subseq Obs Care Lvl 3 Diagnoses Syncope R55 History of right hip hemiarthroplasty Z96.641 Hypoxia R09.02 UTI (urinary tract infection) N39.0 Hematuria presence: without hematuria Urinary tract infection type: site unspecified Nephrolithiasis N20.0 Hypertension I10 Urinary incontinence R32 Hyperlipidemia E78.5 Hyperlipidemia type: unspecified Anxiety F41.9 Depression F33.9 Active/Remission status: remission status unspecified Depression Type: major depressive disorder Major depression recurrence: recurrent Rheumatoid arthritis M06.9 Rheumatoid arthritis location: unspecified site Rheumatoid factor presence: unspecified presence Anemia D64.9 Hearing deficit H91.90 Tobacco use Z72.0 Severe protein-calorie malnutrition E43 DVT prophylaxis Z29.9 (1) UTI (urinary tract infection) Hematuria presence: without hematuria Urinary tract infection type: site unspecified Qualified Code(s): N39.0 - Urinary tract infection, site not specified (2) Rheumatoid arthritis Rheumatoid arthritis location: unspecified site Rheumatoid factor presence: unspecified presence Qualified Code(s): M06.9 - Rheumatoid arthritis, unspecified (3) Depression Active/Remission status: remission status unspecified Depression Type: major depressive disorder Major depression recurrence: recurrent Qualified Code(s): F33.9 - Major depressive disorder, recurrent, unspecified (4) Hyperlipidemia Hyperlipidemia type: unspecified Qualified Code(s): E78.5 - Hyperlipidemia, unspecified
--- NOTE | 2019-11-25 15:32 | XRay Report ---
XR chest 2V PA/lateral CLINICAL HISTORY: Hypoxia, rule out pulm edema vs. PNA dyspnea COMPARISON STUDY: 11/12/2019 FINDINGS: Stable moderate emphysematous change. No focal infiltrative process. Diaphragms are smooth. No evidence for congestive failure. IMPRESSION: Emphysematous change. Mild stable cardiac megaly. ACT 112: Negative or not required by law. The above report was generated using voice recognition software. It may contain grammatical, syntax or spelling errors. Electronically signed by: Peter Santillan M.D. 11/25/2019 3:31 PM
[2019-11-25] MEDS: SODIUM CHLORIDE 0.9% 1000ML 1,000 ML IV SCH (16:20)
--- NOTE | 2019-11-25 16:21 | Electrocardiogram Report ---
Test Reason : Blood Pressure : / mmHG Vent. Rate : 098 BPM Atrial Rate : 098 BPM P-R Int : 124 ms QRS Dur : 090 ms QT Int : 340 ms P-R-T Axes : 069 038 103 degrees QTc Int : 434 ms Normal sinus rhythm Possible Left atrial enlargement Cannot rule out Inferior infarct , age undetermined Abnormal ECG When compared with ECG of 12-NOV-2019 09:48, No significant change was found Confirmed by Duc Mcgraw ([id number]) on 11/25/2019 4:20:52 PM Referred By: Tejas Arguelles Confirmed By:Duc Mcgraw
--- NOTE | 2019-11-25 17:44 | XCELERA ---
[id number] \\[email or web address]\[id number]_[email or web address]\[id number]
[2019-11-25] MEDS: TAMSULOSIN HCL 0.4 MG CAP PO SCH (20:19)
[2019-11-25] MEDS: nitrofurantoin macrocrystaL 50 MG CAP PO SCH (20:19)
[2019-11-25] MEDS: DOCUSATE SODIUM 100 MG CAP PO SCH (20:20)
[2019-11-25] MEDS: HYDROCORTISONE SOD 25 MG in SYRINGE 0 ML IV SCH (20:40)
[2019-11-26] MEDS: OXYCODONE/ACETAMINOPHEN 5mg/325mg TAB PO PRN ×3 (04:25→23:38)
[2019-11-26 05:57] LABS: Hematocrit (blood only) 32.3 % (37-47); Hemoglobin 10.8 g/dL (12.0-16.0); Mean Corpuscular Hemoglobin 34.6 pg (25-34); Mean Corpuscular Hgb Conc 33.4 g/dL (32-36); Mean Corpuscular Volume 103.5 fL (80-100); Mean Platelet Volume 9.2 fL (7.4-10.4); Platelet Count 263 K/uL (130-400); RDW Coefficient of Variation 15.3 % (11.5-14.5); RDW Standard Deviation 57.8 fL (36.4-46.3); Red Blood Count 3.12 M/uL (4.2-5.4); White Blood Count 7.73 K/uL (4.8-10.8)
[2019-11-26 06:28] LABS: BUN Creatinine Ratio 24.1 (10-20); Calcium 8.4 mg/dl (8.5-10.1); Creatinine Clr Calc Pharmacy 35.1 ml/min; Est GFR (African American) 75.7; Est GFR (Non-African American) 65.3; Potassium 4.2 mmol/L (3.5-5.1)
[2019-11-26 09:24] LABS: Folate (Folic Acid) 16.35 ng/ml (>5.38)
[2019-11-26] MEDS: DULOXETINE HCL 20 MG CAP PO SCH (09:24)
[2019-11-26] MEDS: ATORVASTATIN 20 MG TAB PO SCH (09:24)
[2019-11-26] MEDS: MULTIVITAMIN TAB PO SCH (09:24)
[2019-11-26] MEDS: predniSONE 5 MG TAB PO SCH (09:24)
[2019-11-26] MEDS: HYDROCORTISONE SOD 25 MG in SYRINGE 0 ML IV SCH (09:25)
[2019-11-26] MEDS: ASPIRIN 81 MG ECTAB PO SCH ×2 (09:25→20:29)
[2019-11-26] MEDS: DOCUSATE SODIUM 100 MG CAP PO SCH ×2 (09:25→20:30)
[2019-11-26] MEDS: CHOLECALCIFEROL 1,000 UNITS 25 MCG TAB PO SCH (09:25)
[2019-11-26] MEDS: sulfaSALAzine 500 MG TABEC PO SCH ×2 (09:25→20:29)
[2019-11-26] MEDS: SODIUM CHLORIDE 0.9% 1000ML 1,000 ML IV SCH (11:29)
[2019-11-26] MEDS: OXYBUTYNIN CHLORIDE 5 MG TAB PO PRN (11:46)
[2019-11-26 12:09] LABS: Appearance Urine Turbid (Clear); Bacteria Urine Automated Negative (Negative); Bilirubin Urine Negative (Negative); Blood Urine 3+ (Negative); Color Urine Orange; Epithelial Cell Urine Auto 20-30 /lpf (0-5); Glucose Urine UA Negative (Negative); Ketones Urine Negative (Negative); Leukocyte Esterase Urine 2+ (Negative); Nitrite Urine Negative (Negative); Protein Urine 2+ (Negative); Specific Gravity Urine 1.023 (1.000-1.030); Urobilinogen Urine Negative (Negative); WBC Urine Automated >30 /hpf (0-5); pH Urine 5.5 (4.5-7.5)
[2019-11-26 12:21] LABS: Cast Urine Automated >30 /lpf (0-5); RBC Urine Automated >30 /hpf (0-4)
--- NOTE | 2019-11-26 12:27 | Hospitalist Progress Note ---
Date of Service November 26, 2019 Assessment & Plan (1) Syncope: Suspect vasovagal etiology (perhaps pain-related?) vs hypotension in the setting of chronic prednisone use. It appears patient did not receive stress-dose steroids on the day of her procedure - thus, the mild hypotension & orthostasis could be due to such. Stress-dose steroids started 3/ -- will wean to 30mg in the am. The extra prednisone may help her pain as well. Echo noted to be normal. Lisinopril on hold. Cont gentle fluids. (2) Nephrolithiasis: POD #2 - s/p Cystoscopy, Right Ureteronephroscopy, Retrograde Pyelogram; Laser Destruction of stone; Extraction of Stone, Exchange of Stent Catheter. Appears to be having severe bladder and/or ureteral spasm. Cont pyridium. Add oxybutinin. Rechecked ua and sent cx - ua suspicious for possible UTI. Hold macrobid; change to IV rocephin 1 gm daily. (3) History of right hip hemiarthroplasty: Completed on 09/14/19. Was recently receiving home health post op. PT, OT evals. (4) UTI (urinary tract infection): Sent ua and urine cx. Started rocephin 1gm daily today. Perhaps new UTI is contributing to pain/spasm. (5) Hypoxia: CXR w/ emphysematous changes. This coupled with poor deep breaths due to pain could be causing. Pulmonary toilet. Follow. (6) Hypertension: BP has been intermittently low -- cont to hold Lisinopril (7) Hyperlipidemia: Continue home statin. (8) Anxiety: Continue home Cymbalta. (9) Depression: Continue home Cymbalta. (10) Rheumatoid arthritis: Continue home sulfasalazine and prednisone 5 mg daily. Now on stress-dose steroids. See above. (11) Anemia: Baseline hgb 11-12; macrocytic. b12/folate wnl. follow/trend. (12) Hearing deficit: - Noted. (13) Tobacco use: buttermaker continuous churn tobacco abuse, quit 3 months ago. (14) Severe protein-calorie malnutrition: Alb 2.6 -- MVI, consider boost. (15) Hyponatremia: cause?? appears chronic. consider Urine Osm, Urine Na, etc. (16) Chronic kidney disease, stage 3a: Cr at baseline today. BMP in am. (17) DVT prophylaxis: ASA 81 mg BID I spoke with Dr Arguelles this am about ongoing pain will need PT/OT patient not fit for discharge -- will place on full admission status I certify that the inpatient services were ordered in accordance with Medicare regulations governing the order. This includes certification that hospital inpatient services are reasonable and necessary and in the case of services not specified as inpatient-only under 42 CFR 419.22(n), that they are appropriately provided as inpatient services in accordance to with the 2-midnight benchmark under 43 CFR 412.3(e) son was updated at bedside today Admission and Anticipated Discharge Date Admission Date: November 24, 2019 Subjective upon entering the room the patient appeared listless. she said "I had a horrible night." she then said she had pains that would come and go "here" (pointed to the abd omen). when asked to be more specific about the location she then pointed to the lower right back and right flank. then, a short time later, pointed to the suprapubic region. while we were talking she suddenly got a wave of pain over her right back again. ate poorly at breakfast. son came to room while we were talking. had multiple questions. Review of Systems Constitutional: + fatigue and + anorexia; no fever Respiratory: no dyspnea Cardiovascular: no chest pain Gastrointestinal: + abdominal pain Genitourinary: + dysuria Physical Exam Constitutional: + acute distress (due to pain ), + thin and + frail appearing ENMT: external ear and nose normal, oropharynx normal Respiratory: normal respiratory effort, lungs clear to auscultation Cardiovascular: Rate/Rhythm: regular rate and regular rhythm Heart Sounds: normal S1 and normal S2 Vessels: posterior tibial pulses present and dorsalis pedis pulses present; no JVD Extremities: no edema Gastrointestinal (Abdomen): Inspection/Auscultation: abdomen not distended Percussion/Palpation: + abdomen tender (suprapubic region and mild right flank tenderness ) and abdomen soft; no guarding and no hepatosplenomegaly Musculoskeletal: Spine: + paraspinal tenderness (right back ) Psychiatric: Orientation: alert, oriented to person and oriented to place Results & Data ([facility]) Vital Signs (Past 12 Hours) Vital Signs Temp Pulse Resp BP Pulse Ox 11/26/19 07:30 36.8 C 80 18 164/69 H 92 Laboratory Results Laboratory Results - last 24 hr 11/26/19 11/26/19 11/26/19 05:39 05:39 05:39 WBC 7.73 RBC 3.12 L Hgb 10.8 L Hct 32.3 L MCV 103.5 H MCH 34.6 H MCHC 33.4 RDW Std Deviation 57.8 H RDW Coeff of Chiara 15.3 H Plt Count 263 MPV 9.2 Sodium 132 L Potassium 4.2 Chloride 102 Carbon Dioxide 26 Anion Gap 4.0 BUN 19 H Creatinine 0.81 Est Cr Clr Drug Dosing 35.1 Est GFR ( Amer) 75.7 Est GFR (Non-Af Amer) 65.3 BUN/Creatinine Ratio 24.1 H Glucose 111 H Calcium 8.4 L Magnesium Vitamin B12 588 Folate 16.35 Urine Color Urine Appearance Urine pH Ur Specific [place] Urine Protein Urine Glucose (UA) Urine Ketones Urine Blood Urine Nitrite Urine Bilirubin Urine Urobilinogen Ur Leukocyte Esterase Urine WBC (Auto) Urine RBC (Auto) U Hyaline Cast (Auto) U Epithel Cells (Auto) Urine Bacteria (Auto) Urine Yeast 11/26/19 11/26/19 05:39 11:30 WBC RBC Hgb Hct MCV MCH MCHC RDW Std Deviation RDW Coeff of Chiara Plt Count MPV Sodium Potassium Chloride Carbon Dioxide Anion Gap BUN Creatinine Est Cr Clr Drug Dosing Est GFR ( Amer) Est GFR (Non-Af Amer) BUN/Creatinine Ratio Glucose Calcium Magnesium 1.8 Vitamin B12 Folate Urine Color [place] Urine Appearance Turbid A Urine pH 5.5 Ur Specific [place] 1.023 Urine Protein 2+ H Urine Glucose (UA) Negative Urine Ketones Negative Urine Blood 3+ H Urine Nitrite Negative Urine Bilirubin Negative Urine Urobilinogen Negative Ur Leukocyte Esterase 2+ H Urine WBC (Auto) >30 H Urine RBC (Auto) >30 H U Hyaline Cast (Auto) >30 H U Epithel Cells (Auto) 20-30 H Urine Bacteria (Auto) Negative Urine Yeast Not Reportable PG Care Time/CCT Total # of Minutes Spent Total Time Spent with Patient: Total time spent is greater than 50% in coordination of care (as documented) at patient's floor/unit and/or counseling patient: Coding Level of Care Code 54508 Subseq Hosp Care Lvl 3 Diagnoses Syncope R55 Nephrolithiasis N20.0 History of right hip hemiarthroplasty Z96.641 UTI (urinary tract infection) N39.0 Hematuria presence: without hematuria Urinary tract infection type: site unspecified Hypoxia R09.02 Hypertension I10 Hyperlipidemia E78.5 Hyperlipidemia type: unspecified Anxiety F41.9 Depression F33.9 Active/Remission status: remission status unspecified Depression Type: major depressive disorder Major depression recurrence: recurrent Rheumatoid arthritis M06.9 Rheumatoid arthritis location: unspecified site Rheumatoid factor presence: unspecified presence Anemia D64.9 Hearing deficit H91.90 Tobacco use Z72.0 Severe protein-calorie malnutrition E43 Hyponatremia E87.1 Chronic kidney disease, stage 3a N18.3 DVT prophylaxis Z29.9 (1) UTI (urinary tract infection) Hematuria presence: without hematuria Urinary tract infection type: site unspecified Qualified Code(s): N39.0 - Urinary tract infection, site not specified (2) Rheumatoid arthritis Rheumatoid arthritis location: unspecified site Rheumatoid factor presence: unspecified presence Qualified Code(s): M06.9 - Rheumatoid arthritis, unspecified (3) Depression Active/Remission status: remission status unspecified Depression Type: major depressive disorder Major depression recurrence: recurrent Qualified Code(s): F33.9 - Major depressive disorder, recurrent, unspecified (4) Hyperlipidemia Hyperlipidemia type: unspecified Qualified Code(s): E78.5 - Hyperlipidemia, unspecified
--- NOTE | 2019-11-26 13:13 | Urology Progress Note ---
Date of Service November 26, 2019 Assessment & Plan (1) Ureteral obstruction: 89 yo F POD #2 s/p R URS, LL, right stent exchange with Dr. Arguelles. Continues to have bothersome urinary issues. Discussed options. On medications for management. Stent on tether removed. Still needs to have contralateral stones treated in approx 2-3 weeks. Monitor for fevers. Patient is overly anxious about discomfort and pain. Had severe episode last evening and since then has been very nervous about another episode of pain. Up to this point patient has not had considerable left-sided problems. Major issues have been on the right after recent treatment. Tethered stent on that side was removed. If patient does develop another episode of severe pain will need to expand possibilities and assess for other possible issues or explanations for the severe pelvic pain. Subjective 89 yo F POD #2 s/p R URS, LL, right stent exchange with Dr. Arguelles. Pt admitted after procedure yesterday due to post-op pain and episode of syncope. Hospital medicine consulted. Continues to have spasms. Has medications better mnged but still bothersome. No episodes of syncope. No bleeding. Pain with urination. Overall patient is mostly very anxious about episodes of pain. States last night had such a severe episode she could barely stand it. Review of Systems Review of Systems: All systems reviewed & are unremarkable except as noted in HPI & below Physical Exam Physical Exam: General: Alert in no acute distress. HEENT: Normocephalic Atraumatic. Inspection normal. Cranial Nerves 2-12 Grossly intact. Normal inspection of face. Normal inspection of neck. Psychologic: Normal affect. Respiratory: Nonlabored. No use of accessory muscles. No tachypnea or dyspnea. Cardiovascular: No tachycardia Skin: [place] and Dry. No rashes or visible lesions. Abdomen: Soft Non-distended. No rebound or guarding : Stent grasped and removed in total . Results & Data Vital Signs (Past 12 Hours) Vital Signs Temp Pulse Resp BP Pulse Ox 11/26/19 07:30 36.8 C 80 18 164/69 H 92 PG Care Time/CCT Total # of Minutes Spent Total Time Spent with Patient: Total time spent is greater than 50% in coordination of care (as documented) at patient's floor/unit and/or counseling patient: Coding Level of Care Code 30887 Subseq Hosp Care Lvl 3 Diagnoses Ureteral obstruction N13.5 Laterality: left (1) Ureteral obstruction Laterality: left Qualified Code(s): N13.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
[2019-11-26] MEDS: cefTRIAXone SODIUM 1,000 MG in DEXTROSE 5% 50 ML IV SCH (13:17)
[2019-11-26] MEDS: PHENAZOPYRIDINE HCL 200 MG TAB PO PRN (16:26)
[2019-11-26] MEDS: TAMSULOSIN HCL 0.4 MG CAP PO SCH (20:30)
[2019-11-26] MEDS: TRAMADOL HCL 50 MG TABLET PO PRN (20:35)
[2019-11-27] MEDS ORDERED: lisinopriL 20 MG TAB PO STA (00:21)
[2019-11-27] MEDS: OXYBUTYNIN CHLORIDE 5 MG TAB PO PRN (00:50)
[2019-11-27] MEDS: TRAMADOL HCL 50 MG TABLET PO PRN (04:41)
[2019-11-27] MEDS: SODIUM CHLORIDE 0.9% 1000ML 1,000 ML IV SCH (04:42)
[2019-11-27 05:55] LABS: Hematocrit (blood only) 32.6 % (37-47); Hemoglobin 10.8 g/dL (12.0-16.0); Mean Corpuscular Hemoglobin 33.5 pg (25-34); Mean Corpuscular Hgb Conc 33.1 g/dL (32-36); Mean Corpuscular Volume 101.2 fL (80-100); Mean Platelet Volume 9.5 fL (7.4-10.4); Platelet Count 268 K/uL (130-400); RDW Coefficient of Variation 15.1 % (11.5-14.5); RDW Standard Deviation 56.5 fL (36.4-46.3); Red Blood Count 3.22 M/uL (4.2-5.4); White Blood Count 7.29 K/uL (4.8-10.8)
[2019-11-27 06:31] LABS: BUN Creatinine Ratio 22.8 (10-20); Calcium 8.2 mg/dl (8.5-10.1); Creatinine Clr Calc Pharmacy 45.9 ml/min; Est GFR (Non-African American) 81.1; Potassium 3.9 mmol/L (3.5-5.1)
[2019-11-27] MEDS: PHENAZOPYRIDINE HCL 200 MG TAB PO PRN ×2 (08:13→15:50)
[2019-11-27] MEDS: ATORVASTATIN 20 MG TAB PO SCH (08:15)
[2019-11-27] MEDS: CHOLECALCIFEROL 1,000 UNITS 25 MCG TAB PO SCH (08:15)
[2019-11-27] MEDS: MULTIVITAMIN TAB PO SCH (08:15)
[2019-11-27] MEDS: ASPIRIN 81 MG ECTAB PO SCH (08:15)
[2019-11-27] MEDS: cefTRIAXone SODIUM 1,000 MG in DEXTROSE 5% 50 ML IV SCH (08:16)
[2019-11-27] MEDS: DULOXETINE HCL 20 MG CAP PO SCH (08:16)
[2019-11-27] MEDS: sulfaSALAzine 500 MG TABEC PO SCH (08:17)
[2019-11-27] MEDS: DOCUSATE SODIUM 100 MG CAP PO SCH (08:22)
[2019-11-27] MEDS ORDERED: predniSONE 10 MG TABLET PO SCH (09:00)
--- NOTE | 2019-11-27 12:08 | Urology Progress Note ---
Date of Service November 27, 2019 Assessment & Plan (1) Ureteral obstruction: 89 yo F POD #3 s/p R URS, LL, right stent exchange with Dr. Arguelles. Patient improving overall. Has pain control. Pyridium has helped considerably. Patient can take Azo dmne-yip-yedonya for the next few days as needed for discomfort. If cleared by physical therapy, plans in place with hospitalist/medical management, and patient overall improved will likely be able to discharge later today. Subjective Patient doing much better. Improved overall with Pyridium and stent removal. Patient has left stent in place with a large 1.1 cm stone on the left side. No major issues or problems. No stone passage or other issues. Is tolerating diet better. Is still somewhat shaky on her feet however she is feeling much better. Is going to be evaluated by PT later today with plans to likely go home. Patient's medications are better controlled. Has not had further syncope. Is being followed closely by the hospitalist. Occasional pressure in bladder and waves to back Review of Systems Review of Systems: All systems reviewed & are unremarkable except as noted in HPI & below Physical Exam Physical Exam: General: Alert in no acute distress. HEENT: Normocephalic Atraumatic. Inspection normal. Cranial Nerves 2-12 Grossly intact. Normal inspection of face. Normal inspection of neck. Psychologic: Normal affect. Respiratory: Nonlabored. No use of accessory muscles. No tachypnea or dyspnea. Cardiovascular: No tachycardia Skin: [place] and Dry. No rashes or visible lesions. Extremities/Lymphatics: No edema Abdomen: Soft Non-distended. No rebound or guarding. Results & Data Vital Signs (Past 12 Hours) Vital Signs Temp Pulse Resp BP Pulse Ox 11/27/19 07:45 36.5 C 79 16 179/73 H 91 PG Care Time/CCT Total # of Minutes Spent Total Time Spent with Patient: Total time spent is greater than 50% in coordination of care (as documented) at patient's floor/unit and/or counseling patient: Coding Level of Care Code 62582 Subseq Hosp Care Lvl 3 Diagnoses Ureteral obstruction N13.5 Laterality: left (1) Ureteral obstruction Laterality: left Qualified Code(s): N13.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
--- NOTE | 2019-11-27 14:58 | Hospitalist Progress Note ---
Date of Service November 27, 2019 Assessment & Plan (1) Syncope: Suspect vasovagal etiology (perhaps pain-related?) vs hypotension in the setting of chronic prednisone use. It appears patient did not receive stress-dose steroids on the day of her procedure - thus, her syncope may have simply been from an addisonian type situation. Stress-dose steroids started 11/24 -- will wean to 30mg today, 20mg tomorrow, 10mg the next day, then 5mg daily thereafter as previous. The extra prednisone may help with pain as well. Additional IV fluids also helped the situation. Echo noted to be normal. Lisinopril resumed. (2) Nephrolithiasis: POD #3 - s/p Cystoscopy, Right Ureteronephroscopy, Retrograde Pyelogram; Laser Destruction of stone; Extraction of Stone, Exchange of Stent Catheter. Dr Arguelles removed the right stent yesterday and pain is much better today. send home with 7-day course of diflucan 100mg daily for candidal UTI (3) History of right hip hemiarthroplasty: Completed on 09/14/19. Was recently receiving home health post op. PT, OT evals - cleared for home. (4) UTI (urinary tract infection): candidal albicans UTI [id number] CFU typically does not require Rx -- but in light of stent, instrumentation, etc - will Rx diflucan 100mg daily x 7 days stop rocephin (5) Hypoxia: resolved likely atelectasis in setting of severe pain and probable underlying COPD (6) Hypertension: resumed lisinopril BPs now high (7) Hyperlipidemia: Continue home statin. (8) Anxiety: Continue home Cymbalta. (9) Depression: Continue home Cymbalta. (10) Rheumatoid arthritis: Continue home sulfasalazine and prednisone 5 mg daily. Now on stress-dose steroids. See above. (11) Anemia: Baseline hgb 11-12; macrocytic. b12/folate wnl (12) Hearing deficit: Noted. (13) Tobacco use: residential tobacco abuse, quit 3 months ago. (14) Severe protein-calorie malnutrition: Alb 2.6 -- MVI appetite improved today (15) Hyponatremia: cause?? appears chronic. Na stable at 134 today (16) Chronic kidney disease, stage 3a: Cr at baseline today. (17) DVT prophylaxis: ASA 81 mg BID I spoke with Dr Arguelles this am --- from medical standpoint ok for d/c home I recommended that patient not drive until seen by PCP -- son concerned about pt's safety with such I added d/c instructions today son/daughter both updated at bedside Admission and Anticipated Discharge Date Admission Date: November 26, 2019 Subjective patient feeling much better today. pain significantly improved. spasm pain is better. ambulating well without difficulty. denies nausea/emesis. appetite improved. Review of Systems Constitutional: no fever and no chills Respiratory: no cough, no dyspnea and no dyspnea on exertion Cardiovascular: no chest pain Gastrointestinal: no abdominal pain, no nausea and no vomiting Genitourinary: no dysuria and no hematuria Physical Exam Constitutional: + thin and + frail appearing; no acute distress and no altered mental status looks much better today ENMT: external ear and nose normal, oropharynx normal Respiratory: normal respiratory effort, lungs clear to auscultation Cardiovascular: Rate/Rhythm: regular rate and regular rhythm Heart Sounds: normal S1 and normal S2 Vessels: posterior tibial pulses present and dorsalis pedis pulses present; no JVD Extremities: no edema Gastrointestinal (Abdomen): Inspection/Auscultation: abdomen not distended Percussion/Palpation: abdomen soft; abdomen nontender, no guarding and no hepatosplenomegaly Musculoskeletal: Spine: no paraspinal tenderness Psychiatric: Orientation: alert, oriented to person, oriented to place and oriented to time Results & Data ([facility]) Vital Signs (Past 12 Hours) Vital Signs Temp Pulse Pulse Resp BP Pulse Ox 11/27/19 14:23 99 H 16 168/83 H 99 11/27/19 07:45 36.5 C 79 16 179/73 H 91 Laboratory Results Laboratory Results - last 24 hr 11/27/19 11/27/19 05:28 05:28 WBC 7.29 RBC 3.22 L Hgb 10.8 L Hct 32.6 L MCV 101.2 H MCH 33.5 MCHC 33.1 RDW Std Deviation 56.5 H RDW Coeff of Chiara 15.1 H Plt Count 268 MPV 9.5 Sodium 134 L Potassium 3.9 Chloride 103 Carbon Dioxide 27 Anion Gap 4.0 BUN 14 Creatinine 0.62 Est Cr Clr Drug Dosing 45.9 Est GFR ( Amer) 94.0 Est GFR (Non-Af Amer) 81.1 BUN/Creatinine Ratio 22.8 H Glucose 87 Calcium 8.2 L urine cx - 40,000 CFU of octavia albicans PG Care Time/CCT Total # of Minutes Spent Total Time Spent with Patient: Total time spent is greater than 50% in coordination of care (as documented) at patient's floor/unit and/or counseling patient: Coding Level of Care Code 82079 Subseq Hosp Care Lvl 3 Diagnoses Syncope R55 Nephrolithiasis N20.0 History of right hip hemiarthroplasty Z96.641 UTI (urinary tract infection) N39.0 Hematuria presence: without hematuria Urinary tract infection type: site unspecified Hypoxia R09.02 Hypertension I10 Hyperlipidemia E78.5 Hyperlipidemia type: unspecified Anxiety F41.9 Depression F33.9 Active/Remission status: remission status unspecified Depression Type: major depressive disorder Major depression recurrence: recurrent Rheumatoid arthritis M06.9 Rheumatoid arthritis location: unspecified site Rheumatoid factor presence: unspecified presence Anemia D64.9 Hearing deficit H91.90 Tobacco use Z72.0 Severe protein-calorie malnutrition E43 Hyponatremia E87.1 Chronic kidney disease, stage 3a N18.3 DVT prophylaxis Z29.9 (1) UTI (urinary tract infection) Hematuria presence: without hematuria Urinary tract infection type: site unspecified Qualified Code(s): N39.0 - Urinary tract infection, site not specified (2) Rheumatoid arthritis Rheumatoid arthritis location: unspecified site Rheumatoid factor presence: unspecified presence Qualified Code(s): M06.9 - Rheumatoid arthritis, unspecified (3) Depression Active/Remission status: remission status unspecified Depression Type: major depressive disorder Major depression recurrence: recurrent Qualified Code(s): F33.9 - Major depressive disorder, recurrent, unspecified (4) Hyperlipidemia Hyperlipidemia type: unspecified Qualified Code(s): E78.5 - Hyperlipidemia, unspecified
--- NOTE | 2019-11-28 16:25 | Discharge Summary ---
Date of Service November 28, 2019 Admission HPI Per Admitting Provider See H&P Admission Exam Per Admitting Provider See H&P Principal Diagnosis Kidney Stone Discharge Exam General: Alert in no acute distress. HEENT: Normocephalic Atraumatic. Inspection normal. Psychologic: Normal affect. Skin: [place] and Dry. No rashes or visible lesions. Abdomen: Soft Non-distended. No rebound or guarding. Discharge Data Allergies Allergy/AdvReac Type Severity Reaction Status Date / Time Sulfa (Sulfonamide Allergy Intermediate Rash Verified 11/24/19 11:10 Antibiotics) [email or web address] [From Myrbetriq] AdvReac Intermediate hypertensio Verified 11/24/19 11:10 n nicotine AdvReac Mild PATCH-SKIN Verified 11/24/19 11:10 IRRITATION shrimp AdvReac Mild Photosensit Verified 11/24/19 11:10 ivity Consultations 11/24/19 18:47 Consult Hospitalist Routine Procedures Performed Operation Date: 11/24/19 12:40 Actual Procedures p Cystoscopy, Right Ureteronephroscopy, Retrograde Pyelogram; Laser Destruction of stone; Extraction of Stone(Right) - DO jania Smith Exchange of Stent Catheter(Right) - Tejas Arguelles DO Ordered Studies 11/24/19 13:50 FL retrograde includes kub Routine Hospital Course (1) Ureteral obstruction: 89 yo F POD #3 s/p R URS, LL, right stent exchange with Dr. Arguelles. Patient improving overall. Has pain control. Pyridium has helped considerably. Patient can take Azo [id number] for the next few days as needed for discomfort. If cleared by physical therapy, plans in place with hospitalist/medical management, and patient overall improved will likely be able to discharge later today. Total Time Total Time Spent Total Time Spent (In Minutes): 10 minutes Total Time Includes: Examination of the Patient, Discharge Planning, Medication Reconciliation and Communication With Other Providers Discharge Plan Discharge Items Patient Disposition: Home - Self-Care Reason For Visit: Ureteral Obstruction Discharge Diagnosis: Same Activity: Resume your previous activity Non-emergency contact: Urologist Call non-emergency contact if: you have any medication questions, your symptoms worsen, your pain is not controlled, your pain is worsening, your pain is unusual for you, your pain is concerning for you, you have a fever and your temperature is above 101.5 Follow-up/Referrals: Ben Schmidt [Primary Care Provider] - 12/16/19 10:30 am Diet: Regular Addtl Attending Provider Instructions: May have blood in urine. May have pelvic discomfort. Addtl [employer] Provider Instructions: From Eliu Ellis, Hospitalist -- 1. prednisone - take as follows - * Thursday, 11/27 - take 20mg of prednisone * Thursday, 11/28 - take 10mg of prednisone * Thursday, 11/29 and thereafter - take 5mg daily of prednisone as previous 2. for constipation - these medications are [id number] - * miralax 1 capful mixed in 8 ounces of water/juice/etc daily * consider senna (senakot) 2 tablets daily if you need additional constipation help 3. for possible yeast in the urine (urinary tract infection) - take 100mg of fluconazole daily for 7 days; first dose today; this was sent to your pharmacy for you 4. please - no driving unless cleared by your family doctor to continue doing so Pending Studies at Discharge: No Stand-Alone Forms: Anesthesia/Sedation, Adult, [facility] Medications and DC Order Prescriptions: New fluconazole 100 mg tablet 100 mg PO DAILY 7 Days Qty: 7 RF: 0 Continued polyethylene glycol 3350 [Miralax] 17 gram Powder In Packet 17 g PO QAM PRN (Reason: Constipation) RF: 0 melatonin 2.5 mg/10 mL Liquid 5 mg PO HS RF: 0 tamsulosin 0.4 mg Capsule 0.4 mg PO HS Qty: 30 RF: 0 aspirin [Ecotrin Low Strength] 81 mg Tablet,Delayed Release (Dr/Ec) 81 mg PO BID Qty: 60 RF: 0 lisinopril 20 mg Tablet 20 mg PO QAM RF: 0 Centrum Silver Women 8 mg iron-400 mcg-300 mcg Tablet 1 tab PO QAM RF: 0 prednisone 10 mg tablet 5 mg PO QAM RF: 0 atorvastatin 20 mg tablet 20 mg PO QAM RF: 0 sulfasalazine 500 mg tablet,delayed release (DR/EC) 500 mg PO BID RF: 0 duloxetine [Cymbalta] 20 mg capsule,delayed release(DR/EC) 20 mg PO QAM RF: 0 cholecalciferol (vitamin D3) [Vitamin D3] 50 mcg (2,000 unit) Capsule 50 mcg PO QAM RF: 0 acetaminophen [Tylenol Extra Strength] 500 mg Tablet 500 mg PO Q6H PRN (Reason: Pain) RF: 0 nitrofurantoin macrocrystal 100 mg capsule 100 mg PO HS Qty: 7 RF: 0 tramadol [Ultram] 50 mg tablet 50 mg PO Q8H PRN (Reason: pain) Qty: 10 RF: 0 Discharge Orders: Discharge Order (Routine); Ordered 11/27/19 Ordered By: Tejas Heller/Other Patient Handouts: Surgery Prevent DVT After Admission Data Admit Date/Time: 11/26/19 15:37 Attending Provider: Tejas Arguelles Admit Provider: Tejas Arguelles Primary Care Provider: Ben Schmidt Other Providers: Tanner Bourne ; Hemalatha Veliz ; Suzette Arboleda ; Jc Unger ; Yanely French ; Anibal Pelayo ; Newton Dash ; Rodo Barnett ; Alessandra Sultana ; Gilma France ; Joellen Russell ; Steven Burks ; Earline Ridley ; Ezio Erickson ; Francisco Crowder ; Hemalatha Paz ; Gregg Guzman ; Katya Martinez ; Deborah Alcantar ; Knog Myers ; Eliu Dillard ; Deedee Vaughan ; Virginia Marroquin ; Dequan Alvarado ; Syed Regalado ; Ekaterina Montilla ; Soren Rob ; Waylon Goldstein ; Cielo Trevino ; Hari Sorenson Other Interventions: Discharge Summary Assessment (RN) Last Done: 11/27/19 15:39 DC Date/Time DO NOT enter until pt leaves facility: 11/27/19 16:11 Coding Level of Care Code D/C Day Management <30 mins Diagnoses Ureteral obstruction N13.5 Laterality: left
[2019-11-29 14:49] LABS: Calculus Nidus Not Observed; Component 2 DNR; Source URETER STONE
== END 2019-11-27 16:11 | disposition home or self-care (01) | DRG 659 ==
LOC: 3N 10:34 → ASU 10:34

== ENCOUNTER 2019-12-07 09:35 | Observation (INO) ==
[2019-12-07] MEDS ORDERED: ONDANSETRON INJ 2 MG/ML 2 ML VIAL IV STA (09:49)
[2019-12-07] MEDS ORDERED: fentaNYL citrate 100 MCG/2 ML VIAL IV STA (09:49)
--- NOTE | 2019-12-07 09:59 | Emergency Department Note ---
Past Med/Surg History Social History Preferred Language: Indian Communication Ability: Effective Visual Impairment: No Limitations Technology Sales Representative Required: No Beliefs That Will Affect Care: None marital status: / Current Living Situation: Alone Feels Safe at Home: Yes Smoking Status: Former smoker Tobacco Type: cigarettes ; Second Hand Exposure: Yes ( WAS A SMOKER) ; Hx Alcohol Use: Yes Alcohol type: wine Alcohol Intake Frequency Comment: occasional Hx Substance Use: No Results & Data (ED) Vital Signs Vital Signs - 24 hr 12/07/19 09:37 Temperature 36.5 C Temperature Source Oral Pulse Rate 96 H Respiratory Rate 18 Respiratory Effort / Characteristics Non-Labored Respiratory Depth Normal Blood Pressure 149/82 H Blood Pressure Mean 104 Blood Pressure Position Sitting Pulse Oximetry 93 Oxygen Delivery Method Room Air Sepsis Recent Fever Within 48 Hours No Sepsis Action Taken by Nursing No Action Required Discharge Plan Visit Data Chief Complaint: Kidney Stone Stated Complaint: FLANK PAIN FROM KIDNEY STONES ED Provider: Hari Ivory Prescriptions Prescriptions: No Action tamsulosin 0.4 mg capsule 0.4 mg PO HS Qty: 30 RF: 3 oxybutynin chloride 5 mg tablet 5 mg PO BID PRN (Reason: bladder spasms) Qty: 30 RF: 0 ketorolac 10 mg tablet 10 mg PO BID PRN (Reason: pain) Qty: 10 RF: 0 phenazopyridine [Pyridium] 200 mg tablet 200 mg PO TID PRN (Reason: pain) 30 Days Qty: 30 RF: 0 tramadol [Ultram] 50 mg tablet 50 mg PO Q8H PRN (Reason: pain) Qty: 10 RF: 0 polyethylene glycol 3350 [Miralax] 17 gram Powder In Packet 17 g PO QAM PRN (Reason: Constipation) RF: 0 melatonin 2.5 mg/10 mL Liquid 5 mg PO HS RF: 0 aspirin [Ecotrin Low Strength] 81 mg Tablet,Delayed Release (Dr/Ec) 81 mg PO BID Qty: 60 RF: 0 lisinopril 20 mg Tablet 20 mg PO QAM RF: 0 Centrum Silver Women 8 mg iron-400 mcg-300 mcg Tablet 1 tab PO QAM RF: 0 prednisone 10 mg tablet 5 mg PO QAM RF: 0 atorvastatin 20 mg tablet 20 mg PO QAM RF: 0 sulfasalazine 500 mg tablet,delayed release (DR/EC) 500 mg PO BID RF: 0 duloxetine [Cymbalta] 20 mg capsule,delayed release(DR/EC) 20 mg PO QAM RF: 0 cholecalciferol (vitamin D3) [Vitamin D3] 50 mcg (2,000 unit) Capsule 50 mcg PO QAM RF: 0 acetaminophen [Tylenol Extra Strength] 500 mg Tablet 500 mg PO Q6H PRN (Reason: Pain) RF: 0 nitrofurantoin macrocrystal 100 mg capsule 100 mg PO HS Qty: 7 RF: 0
[2019-12-07] MEDS ORDERED: SODIUM CHLORIDE 0.9% 500 ML IV SCH (10:00)
--- NOTE | 2019-12-07 10:01 | Emergency Department Note ---
Impression & Plan Kidney stone on left side, Nausea, Dehydration, Weakness Allergies Allergies Allergy/AdvReac Type Severity Reaction Status Date / Time Sulfa (Sulfonamide Allergy Intermediate Rash Verified 12/07/19 09:59 Antibiotics) [email or web address] [From Myrbetriq] AdvReac Intermediate hypertensio Verified 12/07/19 09:59 n nicotine AdvReac Mild PATCH-SKIN Verified 12/07/19 09:59 IRRITATION shrimp AdvReac Mild Photosensit Verified 12/07/19 09:59 ivity Home Meds Home Medications Medication Instructions Recorded Confirmed Centrum Silver Women 1 tab PO QAM 07/06/18 12/07/19 atorvastatin 20 mg PO QAM 09/05/19 12/07/19 cholecalciferol (vitamin D3) 50 mcg PO QAM 09/05/19 12/07/19 [Vitamin D3] duloxetine [Cymbalta] 20 mg PO QAM 09/05/19 12/07/19 prednisone 5 mg PO QAM 09/05/19 12/07/19 sulfasalazine 500 mg PO BID 09/05/19 12/07/19 melatonin 5 mg PO HS 09/28/19 12/07/19 polyethylene glycol 3350 [Miralax] 17 g PO QAM PRN 09/28/19 12/07/19 lisinopril 20 mg PO QAM 11/11/19 12/07/19 acetaminophen [Tylenol Extra 500 mg PO Q6H PRN 11/12/19 12/07/19 Strength] Previous Rx's Medication Instructions Recorded nitrofurantoin macrocrystal 100 mg PO HS #7 cap 11/13/19 oxybutynin chloride 5 mg tablet 5 mg PO BID PRN #30 tab 12/01/19 tamsulosin 0.4 mg capsule 0.4 mg PO HS #30 cap 12/01/19 phenazopyridine 200 mg tablet 200 mg PO TID PRN 30 Days #30 tab 12/05/19 tramadol 50 mg tablet 50 mg PO Q8H PRN #10 tab 12/05/19 ED Provider Note Provider: Hari Ivory MD DATE OF SERVICE: 12/07/2019 CHIEF COMPLAINT: Flank pain HISTORY OF PRESENT ILLNESS: Patient is a 89-year-old female history of rheumatoid arthritis, hyperlipidemia, depression, glaucoma, and kidney stones d iagnosed with a 1.1 cm left renal stone following with urology presenting today complaining worsening pain. Was under evaluation for by urology anesthesia for lithotripsy on the , 2 days from now. Patient does have urinary stent. Patient had recent lithotripsy on the right side now complaining significant pain on the left side where her stent resides. No fevers or other trauma reported. Pain is constant and worsening. Has been on tramadol at home without improvement of symptoms. Overnight symptoms of seem to worsen in the diffuse lower back region. Not worse with movement. Has stopped NSAID/aspirin/Toradol related to plan for lithotripsy. Some nausea reported. Decreased oral intake. Overnight some issues with either taking too much or too little of her medications as her pill boxes off this morning according to son. REVIEW OF SYSTEMS: A total of 10 review of systems was obtained and negative except as stated above in the HPI. PAST MEDICAL HISTORY: As noted above MEDICATIONS: Tramadol, oxybutynin, Pyridium in addition to others reviewed in the nursing notes. SOCIAL HISTORY: Former smoker. . No drug use reported. Lives by herself. PHYSICAL EXAM: GENERAL: alert and oriented on stretcher appears uncomfortable and fatigued. Head: normocephalic and atraumatic EYES: No injection, discharge or icterus. NECK: Trachea midline. Supple. ENT: Mucous membranes pink and moist. LUNGS: Airway patent. No retractions. Breath sounds clear anteriorly HEART: Regular rate and rhythm. No chest wall tenderness ABDOMEN: Soft and non-tender, without guarding or rebound. No masses BACK: No bilateral flank tenderness. SKIN: Acyanotic, warm, dry, without rashes EXTREMITIES: Without swelling, tenderness or deformity NEUROLOGICAL: No focal deficits. No aphasia. No facial droop or slurred speech. Moving all extremities. Patient's hypertension was referred to the hospitalist PDMP was checked without noted issue. HOSPITAL COURSE: 943 Patient was first seen and H&P performed. 1100 Patient reassessed and updated. Patient was still with fairly significant d iscomfort additional fentanyl ordered. Discussion with patient and family will discuss with the hospitalist for further evaluation and likely inpatient care. Patient's laboratory studies and imaging reviewed. Differential includes Appendicitis, ovarian cyst, ovarian torsion, ectopic , TOA, PID, infections, diverticulitis, UTI, obstruction, mesenteric ischemia, aortic pathology, inflammatory bowel disease, renal colic, PUD, pancreatitis, biliary pathology, hernia, volvulus, constipation, as well as other pathologies. IMPRESSION/MEDICAL DECISION MAKING: Patient presents complaining of uncontrolled pain of her flanks with nausea. History of recent lithotripsy and stent placement on the left now with plans for lithotripsy on the left side in several days. Some issues with possible taking her meds overnight. Does not appear acutely confused today without focal deficit I doubt this is acute CVA. No significant abdominal tenderness existed on exam. Likely her symptoms related to the stent and remaining left-sided renal stone however given her recent right-sided lithotripsy did complete CT scan to evaluate positioning of the stent as well as to ensure no concerning fi ndings for complication from lithotripsy on the right she states symptoms been present for several weeks. Basic labs were obtained as well. She is into medically with IV fluids, Zofran, and fentanyl here initially. Avoiding NSAIDs related to plan for lithotripsy. CT scan shows no significant change. Anemia is slightly better than baseline. No leukocytosis. Patient with some mild baseline hyponatremia. Some new hyperkalemia and mildly elevated BUN is noted likely related some dehydrational status. Urinalysis still pending but have a lower suspicion for acute UTI at this point. Patient had mild improvement of his on fentanyl here and again have concerns about going home with continued pain control and her ability to tolerate oral intake. Hospitalist will evaluate. DIAGNOSIS: Left sided kidney stone, weakness, nausea, dehydration DISPOSITION: Hospitalist will evaluate Patient was agreeable with this plan. Past Med/Surg History Medical History Anxiety (Chronic) Depression (Chronic) Glaucoma (Chronic) Hearing deficit (Chronic) [place] Hyperlipidemia (Chronic) Kidney stones (Chronic) Osteoarthritis (Chronic) Rheumatoid arthritis (Chronic) Surgical History Hip fracture requiring operative repair History of cataract surgery (Resolved) left and right History of colonoscopy (Resolved) History of cystoscopy WITH STENT History of lithotripsy (Resolved) x 2 History of tooth extraction (Resolved) Nausea and vomiting after administration of anesthetic agent Status post cystoscopy with ureteral stent placement 10/28/2019 [facility] Family History Other No pertinent family history in first degree relatives Social History Preferred Language: Vietnamese Communication Ability: Effective Visual Impairment: No Limitations [employer] Required: No Beliefs That Will Affect Care: None marital status: / Current Living Situation: Alone Other Information That Helps Us Care for You: No Feels Safe at Home: Yes Safety Concerns: Feels Safe At This Time Smoking Status: Former smoker Tobacco Type: cigarettes ; Cigarettes Per Day: 20-40 ; Smoking End Date: 09/2019 ; Second Hand Exposure: Yes ( WAS A SMOKER) ; Tobacco Cessation Education Requested by Patient: No Hx Alcohol Use: Yes Alcohol type: hard liquor Alcohol Intake Frequency Comment: occasional Hx Substance Use: No Results & Data (ED) Vital Signs Vital Signs - 24 hr 12/07/19 09:37 12/07/19 09:50 12/07/19 10:00 Temperature 36.5 C Temperature Source Oral Pulse Rate 96 H 85 84 Pulse Rate from SpO2 Sensor Respiratory Rate 18 18 13 Respiratory Effort / Characteristics Non-Labored Respiratory Depth Normal Blood Pressure 149/82 H Blood Pressure Mean 104 Blood Pressure Position Sitting Pulse Oximetry 93 Oxygen Delivery Method Room Air Oxygen Flow Rate Sepsis Recent Fever Within 48 Hours No Sepsis Action Taken by Nursing No Action Required 12/07/19 10:06 12/07/19 10:13 12/07/19 10:41 Temperature Temperature Source Pulse Rate 81 79 87 Pulse Rate from SpO2 Sensor 82 87 Respiratory Rate 18 20 13 Respiratory Effort / Characteristics Respiratory Depth Blood Pressure 188/90 H Blood Pressure Mean 130 Blood Pressure Position Pulse Oximetry 90 90 90 Oxygen Delivery Method Nasal Cannula Room Air Nasal Cannula Oxygen Flow Rate 2 2 Sepsis Recent Fever Within 48 Hours Sepsis Action Taken by Nursing 12/07/19 11:00 Temperature Temperature Source Pulse Rate 82 Pulse Rate from SpO2 Sensor 82 Respiratory Rate 18 Respiratory Effort / Characteristics Respiratory Depth Blood Pressure 178/90 H Blood Pressure Mean 134 Blood Pressure Position Pulse Oximetry 94 Oxygen Delivery Method Nasal Cannula Oxygen Flow Rate 2 Sepsis Recent Fever Within 48 Hours Sepsis Action Taken by Nursing Laboratory Data Result diagrams: 12/07/19 10:00 12/07/19 10:00 Lab Results 12/07/19 12/07/19 12/07/19 Range/Units 10:00 10:00 10:00 WBC 10.21 (4.8-10.8) K/uL RBC 3.46 L (4.2-5.4) M/uL Hgb 11.4 L (12.0-16.0) g/dL Hct 34.6 L (37-47) % MCV 100.0 (80-100) fL MCH 32.9 (25-34) pg MCHC 32.9 (32-36) g/dL RDW Std Deviation 54.2 H (36.4-46.3) fL RDW Coeff of Chiara 15.0 H (11.5-14.5) % Plt Count 338 (130-400) K/uL MPV 9.4 (7.4-10.4) fL Immature Gran % (Auto) 0.4 % Neut % (Auto) 80.7 % Lymph % (Auto) 12.2 % [place] % (Auto) 5.9 % Eos % (Auto) 0.5 % Baso % (Auto) 0.3 % Immature Gran # (Auto) 0.04 H (0.00-0.02) K/uL Neut # (Auto) 8.24 H (1.4-6.5) K/uL Lymph # (Auto) 1.25 (1.2-3.4) K/uL [place] # (Auto) 0.60 H (0.11-0.59) K/uL Eos # (Auto) 0.05 (0-0.5) K/uL Baso # (Auto) 0.03 (0-0.2) K/uL PT 11.0 (9.0-12.0) Seconds INR 1.0 (0.9-1.1) Sodium 130 L (136-145) mmol/L Potassium 5.3 H (3.5-5.1) mmol/L Chloride 97 L (98-107) mmol/L Carbon Dioxide 26 (21-32) mmol/L Anion Gap 6.0 (3-11) BUN 26 H (7-18) mg/dl Creatinine 0.99 (0.6-1.2) mg/dl Est Cr Clr Drug Dosing Not Reportable Est GFR ( Amer) 59.4 Est GFR (Non-Af Amer) 51.2 BUN/Creatinine Ratio 26.6 H (10-20) Glucose 131 H (70-99) mg/dl Calcium 9.4 (8.5-10.1) mg/dl Total Bilirubin 0.6 (0.2-1) mg/dl AST 18 (15-37) U/L ALT 14 (12-78) U/L Alkaline Phosphatase 58 (45-117) U/L Total Protein 6.4 (6.4-8.2) gm/dl Albumin 3.4 (3.4-5.0) gm/dl Globulin 3.0 (2.5-4.0) gm/dl Albumin/Globulin Ratio 1.1 (0.9-2) Lipase 60 L (73-393) U/L Administered Medications Hydromorphone HCl (Dilaudid) 0.5 mg IV Q3H PRN PRN Reason: Pain Stop: 12/21/19 12:07 Last Admin: 12/07/19 12:51 Dose: 0.5 mg Documented by: [id number] Hydrocortisone Sodium (Succinate 25 mg/ Syringe) 0.5 mls @ 4 mls/min IV Q8 TIA Stop: 01/06/20 12:29 Last Admin: 12/07/19 12:36 Dose: 4 mls/min Documented by: [id number] Ioversol (Optiray 320 100ml) 94 ml IV ONCE PRN PRN Reason: Interaction Checking Stop: 12/11/19 10:35 Last Admin: 12/07/19 10:37 Dose: 94 ml Documented by: [id number] Discontinued Medications Fentanyl Citrate (Fentanyl Citrate) 50 mcg IV NOW STA Stop: 12/07/19 09:50 Last Admin: 12/07/19 10:08 Dose: 50 mcg Documented by: [id number] Fentanyl Citrate (Fentanyl Citrate) 25 mcg IV NOW ONE Stop: 12/07/19 11:01 Last Admin: 12/07/19 11:11 Dose: 25 mcg Documented by: [id number] Sodium Chloride (Nss) 500 mls @ 999 mls/hr IV .Q31M TIA Stop: 12/07/19 10:30 Last Infusion: 12/07/19 10:33 Dose: 0 mls/hr Documented by: [id number] Admin: 12/07/19 10:05 Dose: 999 mls/hr Documented by: [id number] Ondansetron HCl (Zofran) 4 mg IV NOW STA Stop: 12/07/19 09:50 Last Admin: 12/07/19 10:05 Dose: 4 mg Documented by: [id number] Discharge Plan Visit Data *Final* Discharge Date/Time: 12/07/19 11:43 Chief Complaint: Kidney Stone Stated Complaint: FLANK PAIN FROM KIDNEY STONES ED Provider: Hari Ivory Discharge Problem: Kidney stone on left side, Nausea, Dehydration, Weakness Patient Disposition: Admitted As Inpatient Condition: Fair Discharge Instructions Interventions: ED Discharge Assessment Last Done: 12/07/19 11:43
[2019-12-07 10:09] LABS: Basophils # (auto) 0.03 K/uL (0-0.2); Basophils % (auto) 0.3 %; Eosinophils # (auto) 0.05 K/uL (0-0.5); Eosinophils % (auto) 0.5 %; Hematocrit (blood only) 34.6 % (37-47); Hemoglobin 11.4 g/dL (12.0-16.0); Immature Granulocytes # (auto) 0.04 K/uL (0.00-0.02); Immature Granulocytes % (auto) 0.4 %; Lymphocytes # (auto) 1.25 K/uL (1.2-3.4); Lymphocytes % (auto) 12.2 %; Mean Corpuscular Hemoglobin 32.9 pg (25-34); Mean Corpuscular Hgb Conc 32.9 g/dL (32-36); Mean Platelet Volume 9.4 fL (7.4-10.4); Monocytes % (auto) 5.9 %; Neutrophils # (auto) 8.24 K/uL (1.4-6.5); Neutrophils % (auto) 80.7 %; Platelet Count 338 K/uL (130-400); RDW Standard Deviation 54.2 fL (36.4-46.3); Red Blood Count 3.46 M/uL (4.2-5.4); White Blood Count 10.21 K/uL (4.8-10.8)
[2019-12-07 10:25] LABS: Alanine Aminotransferase 14 U/L (12-78); Albumin Level 3.4 gm/dl (3.4-5.0); Aspartate Aminotransferase 18 U/L (15-37); BUN Creatinine Ratio 26.6 (10-20); Blood Urea Nitrogen 26 mg/dl (7-18); Calcium 9.4 mg/dl (8.5-10.1); Carbon Dioxide 26 mmol/L (21-32); Chloride 97 mmol/L (98-107); Est GFR (African American) 59.4; Est GFR (Non-African American) 51.2; Glucose 131 mg/dl (70-99); Lipase 60 U/L (73-393); Potassium 5.3 mmol/L (3.5-5.1); Sodium 130 mmol/L (136-145)
[2019-12-07 10:28] LABS: Albumin Globulin Ratio 1.1 (0.9-2); Alkaline Phosphatase 58 U/L (45-117); Bilirubin,Total 0.6 mg/dl (0.2-1); Total Protein 6.4 gm/dl (6.4-8.2)
[2019-12-07] MEDS ORDERED: IOVERSOL 100ml IV PRN (10:36)
--- NOTE | 2019-12-07 10:54 | CT Scan Report ---
CT SCAN OF THE ABDOMEN AND PELVIS WITH IV CONTRAST CLINICAL HISTORY: Low back pain. Flank pain. COMPARISON STUDY: Abdominal CT dated 11/12/2019, 11/07/2019, 10/28/2019, and 01/26/2018. TECHNIQUE: Following the IV administration of 94 cc of Optiray 320, CT scan of the abdomen and pelvis is performed from the lung bases to the proximal femora. Images are reviewed in the axial, sagittal, and coronal planes. IV contrast was administered without complication. There is also motion artifact . A dose lowering technique was utilized adhering to the principles of ALARA. CT DOSE: 385.05 mGycm FINDINGS: Lung bases: The heart is enlarged and without pericardial effusion. The coronary arteries and mitral annulus are densely calcified. A small hiatal hernia is noted. A small fat and colon containing Bochd chanelle hernia is noted at the left lung base. A fat-containing Bochdalek hernia is also seen at the rig ht lung base. There is dependent atelectasis. No airspace consolidation or pleural effusion is identi fied. Scattered calcified granulomas are observed. Liver: The contrast-enhanced liver is normal in size, contour, and attenuation. There is no intrahepa tic biliary ductal dilatation. A 2.4 cm cyst is noted in the left lobe. The hepatic veins and portal veins are patent. Gallbladder: Normal as visualized. Spleen: Normal in size and attenuation. Pancreas: The pancreas is moderately atrophic and grossly unremarkable. Adrenal glands: Unremarkable. Kidneys: The contrast-enhanced kidneys demonstrate cortical atrophy. There is asymmetric atrophy of t he right kidney as compared to left. A left vesicoureteral stent is in appropriate position. The righ t ureteral stent has been removed as compared to previous. There is moderate bilateral hydronephrosis . Left-sided hydronephrosis has increased from previous. No calculi are identified in the right urete r. No calculi are clearly seen in the left ureter along the course of the stent. There are least 2 no nobstructing left renal calculi which measure up to 9 mm. There are at least 2 small nonobstructing r ight renal calculi which measure up to 4 mm. Urothelial thickening and enhancement is noted within t he renal pelvis bilaterally and along the course of ureters. A 10 mm cyst is noted in the right lower pole. Abdominal vasculature: There is advanced atherosclerotic calcification and ectasia of the abdominal a nikki and iliac arteries. Bowel: There is moderate to severe constipation. There is mild colonic diverticulosis without clear C T evidence of acute diverticulitis. No bowel obstruction is seen. The appendix is not clearly visual ized. Peritoneum: There is no intraperitoneal free air or abdominal ascites. Nonspecific mesenteric edema i s noted. Lymphadenopathy: None. Pelvic viscera: Evaluation of the pelvis is degraded by streak artifact from a right hip arthroplasty . The bladder is distended and the bladder wall appears mildly thickened. A 3.4 cm enhancing lesion w ithin the left uterine fundus is unchanged back to 2018 and likely represents a fibroid. No adnexal l esion is identified. Skeletal structures: The skeletal structures are osteopenic. There is advanced lumbosacral spondylosi s. There is a subacute appearing superior endplate compression fracture of T11. A large posterior dis c osteophyte complex at T12-L1 contributes to significant spinal stenosis. No lytic or blastic lesion s are seen. 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 Soft tissues: There is body wall edema. IMPRESSION: 1. A right ureteral stent has been removed from previous. Moderate right-sided hydronephrosis is unch anged. 2. A left ureteral stent is unchanged in position position. Moderate left-sided hydronephrosis has in creased from 11/12/2019. 3. No calculi are identified in the right ureter. No calculi are seen in the left ureter along the co urse of the stent. 4. Nonobstructing calculi are present in both kidneys as above. 5. Urothelial thickening and enhancement is again seen within the renal pelvis bilaterally and along the course of ureters. This is nonspecific and may be related to recent instrumentation the presence of indwelling stents. Correlate clinically and with urinalysis for evidence of superimposed urinary t ract infection. 6. Cardiomegaly. 7. Body wall edema is again noted. 8. Additional findings as above. ACT 112: Negative or not required by law. Electronically signed by: Jose F Cohn M.D. 12/07/2019 10:53 AM
[2019-12-07] MEDS ORDERED: fentaNYL citrate 100 MCG/2 ML VIAL IV ONE (11:00)
--- NOTE | 2019-12-07 11:43 | History & Physical Report ---
Date of Service December 07, 2019 Assessment & Plan (1) Flank pain: - Related to acute urinary issues; CT A/P showed removal of right ureter stent, moderate right hydronephrosis, left ureter stent in position with moderate left hydronephrosis, no obstructing calculi. - U/a is pending collection; hold IV abx at this time, consider anti-fungal treatment (see below) - Oxybutynin, Pyridium, Tylenol, Tramadol and Dilaudid prn pain. - Continue Flomax 0.4 mg daily. - Urology consulted, initially planned for lithotripsy on Friday 12/08. May require more urgent intervention if possible. - NPO for possible procedure; received 500 cc bolus in the ER, will hold IV fluids to avoid volume overload. (2) Hydronephrosis: - Noted on CT A/P, see above. (3) Ureteral obstruction: - Recently admitted 11/23-11/26, s/p R URS, LL, right stent exchange on 11/23 with urology. - See plan as outlined above, urology consult pending. (4) UTI (urinary tract infection): - UC positive for Itzel albicans on 12/04, was previously positive on 11/25 and patient completed 7 day course of Fluconazole. - Will treat if recommended by urology. (5) History of hemiarthroplasty of hip: - Completed 09/14/19. - PT/OT evaluation prior to discharge. (6) Hypoxia: - Currently requiring 1-2L via NC, on room air at home. - CXR with emphysema changes -- was longstanding smoker, just quit a few months ago. - Recommend follow up to evaluate for underlying COPD. (7) Hypertension: - Hold Lisinopril during operative setting. (8) Hyperlipidemia: - Continue statin as prescribed. (9) Depression: - Continue Cymbalta as prescribed. (10) Rheumatoid arthritis: - Continue home Sulfasalazine. - Hold home Prednisone, start Hydrocortisone 25 mg IV q8hr due to recent syncope following last procedure with concern for adrenal insufficiency. (11) Chronic kidney disease, stage 3a: - Creatinine is currently at baseline; BUN is elevated. - Received IV fluids in the ER. - Holding home Lisinopril. (12) Anemia: - Macrocytic anemia. - B12 and Folate were WNL. (13) Tobacco use: - H/o tobacco abuse, quit a few months ago. (14) Hyponatremia: - Na level 130, likely hypovolemic hyponatremia. - Monitor BMP daily. (15) Hyperkalemia: - K level 5.3; will repeat level at 5 pm this evening. - Received IV fluids in the ER. (16) DVT prophylaxis: - SCDs; hold pharmacologic for procedure. Dispo: Med/surg for urology evaluation. History of Present Illness Chief Complaint: Flank pain Primary Care Provider: Ben Schmidt Mrs. Dumont is an 89 y/o female with past medical history of RA, HLD, Depression, Glaucoma, Kidney stones, HTN, CKD stage III who presented with increased flank pain. She was recently admitted 11/23-11/26 for urological intervention -- she had a cystoscopy, laser destruction of stone, extraction of stone and exchange of right stent on 11/23. She also had a syncopal episode during this admission, hospitalist team was consulted for management. Patient had issues with pain control post op. She presents today with increased flank pain; urology planned to complete left ESWL on Thursday12/09/19 as outpatient. She has bilateral flank pain, R>L, rated as a 10/10 - no improvement with PO meds at home. Has mild intermittent dysuria but denies hematuria, fever, chills. Has mild nausea, denies vomiting; had a BM this morning. Denies chest pain, SOB, LE edema, headache, URI symptoms. ER course: CT showed removal of right ureter stent, left ureter stent in position, nonobstructing calculi in both kidneys. She received Fentanyl 75 mcg IV along with 500 cc bolus/Zofran 4 mg IV. She will be admitted for IV pain control and urology consult. Allergies Allergy/AdvReac Type Severity Reaction Status Date / Time Sulfa (Sulfonamide Allergy Intermediate Rash Verified 12/07/19 09:59 Antibiotics) mirabegron [From Myrbetriq] AdvReac Intermediate hypertensio Verified 12/07/19 09:59 n nicotine AdvReac Mild PATCH-SKIN Verified 12/07/19 09:59 IRRITATION shrimp AdvReac Mild Photosensit Verified 12/07/19 09:59 ivity Home Medications Home Medications Medication Instructions Recorded Confirmed Type Centrum Silver Women 1 tab PO QAM 07/06/18 12/07/19 History atorvastatin 20 mg PO QAM 09/05/19 12/07/19 History cholecalciferol (vitamin D3) 50 mcg PO QAM 09/05/19 12/07/19 History [Vitamin D3] duloxetine [Cymbalta] 20 mg PO QAM 09/05/19 12/07/19 History prednisone 5 mg PO QAM 09/05/19 12/07/19 History sulfasalazine 500 mg PO BID 09/05/19 12/07/19 History melatonin 5 mg PO HS 09/28/19 12/07/19 History polyethylene glycol 3350 [Miralax] 17 g PO QAM PRN 09/28/19 12/07/19 History lisinopril 20 mg PO QAM 11/11/19 12/07/19 History acetaminophen [Tylenol Extra 500 mg PO Q6H PRN 11/12/19 12/07/19 History Strength] nitrofurantoin macrocrystal 100 mg PO HS #7 cap 11/13/19 12/07/19 Rx oxybutynin chloride 5 mg tablet 5 mg PO BID PRN #30 tab 12/01/19 12/07/19 Rx tamsulosin 0.4 mg capsule 0.4 mg PO HS #30 cap 12/01/19 12/07/19 Rx phenazopyridine 200 mg tablet 200 mg PO TID PRN 30 Days #30 tab 12/05/19 12/07/19 Rx tramadol 50 mg tablet 50 mg PO Q8H PRN #10 tab 12/05/19 12/07/19 Rx fluconazole 100 mg PO DAILY #12 tab 12/08/19 Rx Past Med/Surg History Medical History Anemia Anxiety (Chronic) Depression (Chronic) Glaucoma (Chronic) Hearing deficit (Chronic) BL ROMERO Hyperlipidemia (Chronic) Hyponatremia Kidney stones (Chronic) Osteoarthritis (Chronic) Rheumatoid arthritis (Chronic) Surgical History Hip fracture requiring operative repair History of cataract surgery (Resolved) left and right History of colonoscopy (Resolved) History of cystoscopy WITH STENT History of lithotripsy (Resolved) x 2 History of tooth extraction (Resolved) Nausea and vomiting after administration of anesthetic agent Status post cystoscopy with ureteral stent placement 10/28/2019 [facility] Family History (Updated 12/09/19 @ 10:38 by Dequan Alvarado) Father Hypertension Other No pertinent family history in first degree relatives Social History Preferred Language: Danish Communication Ability: Effective Visual Impairment: No Limitations Hospitality Workers Required: No Beliefs That Will Affect Care: None marital status: / Current Living Situation: Alone Feels Safe at Home: Yes Smoking Status: Former smoker Tobacco Type: cigarettes ; Cigarettes Per Day: 20-40 ; Second Hand Exposure: Yes ( WAS A SMOKER) ; Hx Alcohol Use: Yes Alcohol type: hard liquor Alcohol Intake Frequency Comment: occasional Hx Substance Use: No Review of Systems Review of Systems: All systems reviewed & are unremarkable except as noted in HPI & below Constitutional: + fatigue, + weakness and + anorexia; no fever and no chills Respiratory: no cough, no dyspnea and no dyspnea on exertion Cardiovascular: no chest pain, no palpitations and no edema Gastrointestinal: + nausea; no abdominal pain, no vomiting and no constipation Genitourinary: + dysuria, + urinary frequency and + flank pain; no difficulty urinating and no hematuria Musculoskeletal: no back pain and no joint pain Integumentary: no non-healing lesions Physical Exam Physical Exam: General: Resting comfortably HEENT: NC/AT; PERRLA with EOMI; [place] conjunctiva, MMM. No erythema of posterior pharynx Neck: Supple and nontender Cardiac: RRR Lungs: 2L via NC; CTA bilaterally Abdomen: Bowel normoactive X 4; Nontender to palpation Extremities: Warm. No edema present Neuro: No focal weakness Skin: No rash Code Status & VTE Plan VTE Prophylaxis Plan VTE Prophylaxis will be ordered: Yes Supervising Physician Co-Signing Physician Notes Patient seen and examined at bedside. During my face to face encounter, patient had a physical examination and obtained a history. My history did not differ from Hemalatha Paz. Patient's questions were answered. Discussed plan with APC and patient. Patient will be admitted under OBS for hydronephrosis. Will likely have a ureteral stent exchange while hospitalized. Will consult Urology and will keep NPO. PG Care Time/CCT Total # of Minutes Spent Total Time Spent with Patient: Total time spent is greater than 50% in coordination of care (as documented) at patient's floor/unit and/or counseling patient: Coding Level of Care Code 90444 OBS Care - Level 3 Diagnoses Flank pain R10.9 Hydronephrosis N13.30 Ureteral obstruction N13.5 Laterality: left UTI (urinary tract infection) N39.0 Hematuria presence: without hematuria Urinary tract infection type: site unspecified History of hemiarthroplasty of hip Z96.649 Hypoxia R09.02 Hypertension I10 Hyperlipidemia E78.5 Hyperlipidemia type: unspecified Depression F33.9 Active/Remission status: remission status unspecified Depression Type: major depressive disorder Major depression recurrence: recurrent Rheumatoid arthritis M06.9 Rheumatoid arthritis location: unspecified site Rheumatoid factor presence: unspecified presence Chronic kidney disease, stage 3a N18.3 Anemia D64.9 Tobacco use Z72.0 Hyponatremia E87.1 Hyperkalemia E87.5 DVT prophylaxis Z29.9 (1) UTI (urinary tract infection) Hematuria presence: without hematuria Urinary tract infection type: site unspecified Qualified Code(s): N39.0 - Urinary tract infection, site not specified (2) Rheumatoid arthritis Rheumatoid arthritis location: unspecified site Rheumatoid factor presence: unspecified presence Qualified Code(s): M06.9 - Rheumatoid arthritis, unspecified (3) Depression Active/Remission status: remission status unspecified Depression Type: major depressive disorder Major depression recurrence: recurrent Qualified Code(s): F33.9 - Major depressive disorder, recurrent, unspecified (4) Hyperlipidemia Hyperlipidemia type: unspecified Qualified Code(s): E78.5 - Hyperlipidemia, unspecified (5) Ureteral obstruction Laterality: left Qualified Code(s): N13.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
[2019-12-07] MEDS ORDERED: HYDROCORTISONE SOD SUCCINATE 100 MG/2 ML VIAL IV SCH (12:08)
[2019-12-07] MEDS ORDERED: OXYBUTYNIN CHLORIDE 5 MG TAB PO PRN (12:08)
[2019-12-07] MEDS ORDERED: POLYETHYLENE (MIRALAX) 17 GM PACK PO PRN (12:08)
[2019-12-07] MEDS: HYDROCORTISONE SOD 25 MG in SYRINGE 0 ML IV SCH ×2 (12:36→21:25)
[2019-12-07] MEDS: HYDROmorphone INJ 0.5 MG/0.5 ML SYR IV PRN ×2 (12:51→22:48)
--- NOTE | 2019-12-07 13:48 | Urology Consultation ---
Date of Consultation December 07, 2019 Assessment & Plan (1) Flank pain: (2) Kidney stone on left side: 89 yo F with multiple comorbidities admitted for worsening left flank pain and nausea in the setting of left ureteral stent and 9 mm left renal stone. - Reviewed case with Dr. Erickson - Afebrile, VSS, nontoxic - Pt poorly tolerating stent - No intervention planned today - Continue supportive care and pain management - Okay to give diet today, make NPO again at [place] - Outpatient UC&S on 12/04 reviewed - prelim octavia albicans - Recently completed course of Fluconazole x 7 days - will repeat treatment, order placed - Pt likely will not be able to be discharged for outpatient ESWL as scheduled. We discussed intervention during admission and she is agreeable. - Will reassess patient in AM, tentative plan to proceed with Cystoscopy, left retrograde pyelogram, left ureteroscopy, laser lithotripsy, stone basketing, possible ureteral dilation and left ureteral stent exchange. Please consult our service urgently if patient develops fever >101F, intractable pain or nausea, as this will necessitate urgent surgical intervention. Thank you for the consultation and we will continue to monitor closely with primary service. History of Present Illness Reason for Consultation: Renal Calculi Attending Physician: Dequan Alvarado History of Present Illness 89 yo F with PMHx of rheumatoid arthritis, hyperlipidemia, depression, glaucoma, and kidney stones admitted with worsening left flank pain in the setting of left ureteral stent and 9 mm left renal stone. Urology consultation for left renal calculi. Patient is known to our service - following for nephrolithiasis. Recently admitted at [facility] from 11/23 - 11/26. She underwent R URS, LL, and right stent exchange on 11/24/[address] Arguelles and was admitted for post op pain management and episode of syncope. Her right stent was removed during admission. She was discharged with Fluconazole 100 mg x 7 days for octavia on UC&S. She has 9 mm left renal stone and left ureteral stent in place. She was scheduled for L ESWL on 12/08. Pt presented to ED on 12/06 with worsening left flank pain, nausea and poor PO intake. ED course reviewed including lab work and imaging. In ED, treated with IV fluids, IV zofran, Fentanyl, and Dilaudid. Admitted for further evaluation and management. Chart review: Afebrile Creatinine - 0.99 K - 5.3 Na - 130 WBC - 10.21 Hgb - 11.4 UC&S on 12/04 - preliminary octavia albicans UA and UC&S not collected during admission CT abd/pelvis IMPRESSION: 1. A right ureteral stent has been removed from previous. Moderate right-sided hydronephrosis is unchanged. 2. A left ureteral stent is unchanged in position position. Moderate left-sided hydronephrosis has increased from 11/12/2019. 3. No calculi are identified in the right ureter. No calculi are seen in the left ureter along the course of the stent. 4. Nonobstructing calculi are present in both kidneys as above. 5. Urothelial thickening and enhancement is again seen within the renal pelvis bilaterally and along the course of ureters. This is nonspecific and may be related to recent instrumentation the presence of indwelling stents. Correlate clinically and with urinalysis for evidence of superimposed urinary tract infection. Patient resting comfortably in bed, arouses easily. She reports that pain is currently controlled. Denies abdominal, flank or suprapubic pain. Voiding spontaneously, incontinent. Denies dysuria or hematuria. No f/c/n/v. Currently feeling hungry and would like to eat. No additional acute urological concerns at this time. Allergies Allergy/AdvReac Type Severity Reaction Status Date / Time Sulfa (Sulfonamide Allergy Intermediate Rash Verified 12/07/19 09:59 Antibiotics) mirabegron [From Myrbetriq] AdvReac Intermediate hypertensio Verified 12/07/19 09:59 n nicotine AdvReac Mild PATCH-SKIN Verified 12/07/19 09:59 IRRITATION shrimp AdvReac Mild Photosensit Verified 12/07/19 09:59 ivity Home Medications Home Medications Medication Instructions Recorded Confirmed Type Centrum Silver Women 1 tab PO QAM 07/06/18 12/07/19 History atorvastatin 20 mg PO QAM 09/05/19 12/07/19 History cholecalciferol (vitamin D3) 50 mcg PO QAM 09/05/19 12/07/19 History [Vitamin D3] duloxetine [Cymbalta] 20 mg PO QAM 09/05/19 12/07/19 History prednisone 5 mg PO QAM 09/05/19 12/07/19 History sulfasalazine 500 mg PO BID 09/05/19 12/07/19 History melatonin 5 mg PO HS 09/28/19 12/07/19 History polyethylene glycol 3350 [Miralax] 17 g PO QAM PRN 09/28/19 12/07/19 History lisinopril 20 mg PO QAM 11/11/19 12/07/19 History acetaminophen [Tylenol Extra 500 mg PO Q6H PRN 11/12/19 12/07/19 History Strength] nitrofurantoin macrocrystal 100 mg PO HS #7 cap 11/13/19 12/07/19 Rx oxybutynin chloride 5 mg tablet 5 mg PO BID PRN #30 tab 12/01/19 12/07/19 Rx tamsulosin 0.4 mg capsule 0.4 mg PO HS #30 cap 12/01/19 12/07/19 Rx phenazopyridine 200 mg tablet 200 mg PO TID PRN 30 Days #30 tab 12/05/19 12/07/19 Rx tramadol 50 mg tablet 50 mg PO Q8H PRN #10 tab 12/05/19 12/07/19 Rx Patient History Medical History Anxiety (Chronic) Depression (Chronic) Glaucoma (Chronic) Hearing deficit (Chronic) BL ROMERO Hyperlipidemia (Chronic) Kidney stones (Chronic) Osteoarthritis (Chronic) Rheumatoid arthritis (Chronic) Surgical History Hip fracture requiring operative repair History of cataract surgery (Resolved) left and right History of colonoscopy (Resolved) History of cystoscopy WITH STENT History of lithotripsy (Resolved) x 2 History of tooth extraction (Resolved) Nausea and vomiting after administration of anesthetic agent Status post cystoscopy with ureteral stent placement 10/28/2019 [facility] Family History Other No pertinent family history in first degree relatives Social History Preferred Language: Samoan Communication Ability: Effective Visual Impairment: No Limitations Line Maintenance Required: No Beliefs That Will Affect Care: None marital status: / Current Living Situation: Alone Other Information That Helps Us Care for You: No Feels Safe at Home: Yes Safety Concerns: Feels Safe At This Time Smoking Status: Former smoker Tobacco Type: cigarettes ; Cigarettes Per Day: 20-40 ; Smoking End Date: 09/2019 ; Second Hand Exposure: Yes ( WAS A SMOKER) ; Tobacco Cessation Education Requested by Patient: No Hx Alcohol Use: Yes Alcohol type: hard liquor Alcohol Intake Frequency Comment: occasional Hx Substance Use: No Review of Systems Constitutional: as per Subjective / HPI Gastrointestinal: as per Subjective / HPI Genitourinary: as per Subjective / HPI Physical Exam Constitutional: well developed and well nourished; no acute distress and not ill appearing Respiratory: normal respiratory effort and able to speak in complete sentences; no respiratory distress and no labored breathing Cardiovascular: Extremities: no calf tenderness and no pedal edema Gastrointestinal (Abdomen): Inspection/Auscultation: abdomen normal to inspection; abdomen not distended Percussion/Palpation: abdomen soft; abdomen nontender and no guarding Neurologic: moves all extremities and awake Psychiatric: Orientation: alert and oriented x 3 Genitourinary: no CVA tenderness Mild tenderness to palpation at left lower back Results & Data Vital Signs (Past 12 Hours) Vital Signs Temp Pulse Pulse Resp BP BP Pulse Ox 12/07/19 12:15 36.6 C 90 20 125/65 91 12/07/19 11:30 83 18 170/77 H 94 12/07/19 11:00 82 18 178/90 H 94 12/07/19 10:41 87 13 90 12/07/19 10:13 79 20 90 12/07/19 10:06 81 18 188/90 H 90 12/07/19 10:00 84 13 12/07/19 09:50 85 18 12/07/19 09:37 36.5 C 96 H 18 149/82 H 93 PG Care Time/CCT Total # of Minutes Spent Total Time Spent with Patient: Total time spent is greater than 50% in coordination of care (as documented) at patient's floor/unit and/or counseling patient: Coding Level of Care Code 87104 Inpt Consult Level 4 Diagnoses Flank pain R10.9 Kidney stone on left side N20.0
--- NOTE | 2019-12-07 14:00 | Electrocardiogram Report ---
Test Reason : Blood Pressure : / mmHG Vent. Rate : 080 BPM Atrial Rate : 080 BPM P-R Int : 130 ms QRS Dur : 082 ms QT Int : 376 ms P-R-T Axes : 061 032 077 degrees QTc Int : 433 ms Normal sinus rhythm When compared with ECG of 24-NOV-2019 20:31, No significant change was found Confirmed by Roland Kulkarni ([id number]) on 12/07/2019 2:00:46 PM Referred By: REFERRED SELF Confirmed By:Fran Kulkarni
[2019-12-07] MEDS ORDERED: FLUCONAZOLE 100 MG TAB PO SCH (15:00)
[2019-12-07] MEDS: FLUCONAZOLE 100 MG TAB PO SCH (16:33)
[2019-12-07] MEDS: TRAMADOL HCL 50 MG TABLET PO PRN (16:37)
[2019-12-07 17:50] LABS: BUN Creatinine Ratio 26.1 (10-20); Calcium 8.8 mg/dl (8.5-10.1); Creatinine Clr Calc Pharmacy 34.4 ml/min; Est GFR (African American) 69.4; Est GFR (Non-African American) 59.9; Potassium 5.1 mmol/L (3.5-5.1)
[2019-12-07] MEDS: PHENAZOPYRIDINE HCL 200 MG TAB PO PRN (18:37)
[2019-12-07] MEDS: TAMSULOSIN HCL 0.4 MG CAP PO SCH (20:10)
[2019-12-07] MEDS: sulfaSALAzine 500 MG TABEC PO SCH (20:10)
[2019-12-07] MEDS: ACETAMINOPHEN 500 MG TAB PO PRN (20:54)
[2019-12-07] MEDS ORDERED: ZOLPIDEM TARTRATE 5 MG TAB PO ONE (22:30)
[2019-12-08] MEDS: TRAMADOL HCL 50 MG TABLET PO PRN ×2 (00:33→19:00)
[2019-12-08] MEDS ORDERED: ZOLPIDEM TARTRATE 5 MG TAB ONE (00:39)
[2019-12-08] MEDS: HYDROmorphone INJ 0.5 MG/0.5 ML SYR IV PRN ×3 (04:38→21:07)
[2019-12-08 05:33] LABS: Hematocrit (blood only) 30.6 % (37-47); Hemoglobin 10.1 g/dL (12.0-16.0); Mean Corpuscular Hemoglobin 33.7 pg (25-34); Mean Platelet Volume 9.1 fL (7.4-10.4); Platelet Count 320 K/uL (130-400); RDW Standard Deviation 55.1 fL (36.4-46.3); White Blood Count 9.26 K/uL (4.8-10.8)
[2019-12-08 06:05] LABS: BUN Creatinine Ratio 25.8 (10-20); Calcium 8.5 mg/dl (8.5-10.1); Est GFR (African American) 73.5; Est GFR (Non-African American) 63.4; Magnesium 1.6 mg/dl (1.8-2.4); Potassium 4.8 mmol/L (3.5-5.1)
[2019-12-08] MEDS: ACETAMINOPHEN 500 MG TAB PO PRN ×2 (06:11→23:55)
[2019-12-08] MEDS: HYDROCORTISONE SOD 25 MG in SYRINGE 0 ML IV SCH ×3 (06:12→21:54)
--- NOTE | 2019-12-08 07:25 | Urology Progress Note ---
Date of Service December 08, 2019 Assessment & Plan (1) Kidney stone on left side: (2) Hydronephrosis: (3) Flank pain: 89 year-old female with multiple comorbidities admitted for worsening left flank pain and nausea in the setting of left ureteral stent and 9 mm left renal stone. -Remains afebrile. -Renal function stable. -Strain urine. -Keep NPO for procedure today. Findings reviewed with Dr. Erickson. Given her intractable left flank pain in the context of left ureteral stent and renal stone, will proceed with OR for cystoscopy, left retrograde pyelogram, left ureteroscopy, laser lithotripsy, stone basketing, possible ureteral dilation and left ureteral stent exchange. Risks and benefits to be reviewed with patient by Dr. Erickson. OR notified. Preoperative CXR and EKG previously completed. Will cover with IV Ciprofloxacin preoperatively. Patient's son and primary contact updated via telephone. He and patient are in agreement with plan. Subjective Awake, alert, appears uncomfortable. Reports she has had on-going left abdominal/flank pain, "somewhat" tolerable with IV and PO pain medication. Denies fevers or chills. Denies nausea or vomiting. Has been incontinent of urine per nursing notes. Denies dysuria or hematuria. She is able to ambulate without dizziness or lightheadedness. Verifies she has been NPO since midnight. Chart review: Afebrile. Wbc 9.26 Hgb 10.1 Creatinine 0.83 Urine culture from 12/04 positive for Itzel - currently on PO Fluconazole. Review of Systems Constitutional: no fever and no chills Respiratory: Requiring oxygen therapy Cardiovascular: no chest pain and no lightheadedness Gastrointestinal: no nausea and no vomiting Genitourinary: as per Subjective / HPI Neurologic: no dizziness and no syncope Physical Exam Constitutional: well developed and well nourished; not ill appearing Uncomfortable at times during exam due to pain. ENMT: Ears: + hearing impairment (Hard of hearing) Nose: no external nose abnormality Neck: normal visual inspection and trachea midline Respiratory: normal respiratory effort and able to speak in complete sentences; no respiratory distress and no audible wheezes On 1L oxygen via nasal cannula. Cardiovascular: Extremities: no calf tenderness and no edema Gastrointestinal (Abdomen): Inspection/Auscultation: abdomen normal to inspection; abdomen not distended Percussion/Palpation: abdomen soft; abdomen nontender and no guarding Skin: No visible rashes, lesions, or wounds. Psychiatric: Orientation: alert, oriented x 3 and cooperative Affect: euthymic affect Genitourinary: no CVA tenderness Results & Data Vital Signs (Past 12 Hours) Vital Signs Temp Pulse Resp BP Pulse Ox 12/08/19 06:40 36.6 C 81 20 148/62 H 91 12/07/19 22:54 36.9 C 91 H 18 161/73 H 91 PG Care Time/CCT Total # of Minutes Spent Total Time Spent with Patient: Total time spent is greater than 50% in coordination of care (as documented) at patient's floor/unit and/or counseling patient: Coding Level of Care Code 28687 Subseq Hosp Care Lvl 2 Diagnoses Kidney stone on left side N20.0 Hydronephrosis N13.30 Flank pain R10.9
[2019-12-08] MEDS ORDERED: CIPROFLOXACIN / D5W 400 MG/200 ML BAG IV SCH (07:30)
--- NOTE | 2019-12-08 09:04 | Anesthesiology Consultation ---
Date of Service December 08, 2019 Assessment & Plan (1) Encounter for pre-operative examination: Chart Review Chart Review: Acceptable Risk for Surgery (patient initially scheduled for tomorrow, but is now an inpatient) and Patient NOT seen in Pre Admission Testing Consults Requested none History Surgery Operation Date: 12/08/19 11:00 Proposed Procedures p Cystoscopy, Left Retrograde Pyelogram, Left Ureteroscopy, Laser Lithotripsy, Basket Stone Extraction, Left Stent Exchange - Dariusz Erickson MD Height/Weight Height: 5 ft 1 in Weight: 49.6 kg Allergies Allergy/AdvReac Type Severity Reaction Status Date / Time Sulfa (Sulfonamide Allergy Intermediate Rash Verified 12/07/19 09:59 Antibiotics) [email or web address] [From Myrbetriq] AdvReac Intermediate hypertensio Verified 12/07/19 09:59 n nicotine AdvReac Mild PATCH-SKIN Verified 12/07/19 09:59 IRRITATION shrimp AdvReac Mild Photosensit Verified 12/07/19 09:59 ivity Medications Home Medications Medication Instructions Recorded Confirmed Last Taken Centrum Silver Women 1 tab PO QAM 07/06/18 12/07/19 12/07/19 atorvastatin 20 mg PO QAM 09/05/19 12/07/19 12/07/19 cholecalciferol (vitamin D3) 50 mcg PO QAM 09/05/19 12/07/19 12/07/19 [Vitamin D3] duloxetine [Cymbalta] 20 mg PO QAM 09/05/19 12/07/19 12/07/19 prednisone 5 mg PO QAM 09/05/19 12/07/19 12/07/19 sulfasalazine 500 mg PO BID 09/05/19 12/07/19 12/07/19 melatonin 5 mg PO HS 09/28/19 12/07/19 12/06/19 polyethylene glycol 3350 [Miralax] 17 g PO QAM PRN 09/28/19 12/07/19 12/07/19 lisinopril 20 mg PO QAM 11/11/19 12/07/19 12/07/19 acetaminophen [Tylenol Extra 500 mg PO Q6H PRN 11/12/19 12/07/19 12/07/19 Strength] nitrofurantoin macrocrystal 100 mg PO HS #7 cap 11/13/19 12/07/19 12/06/19 oxybutynin chloride 5 mg tablet 5 mg PO BID PRN #30 tab 12/01/19 12/07/19 tamsulosin 0.4 mg capsule 0.4 mg PO HS #30 cap 12/01/19 12/07/19 12/06/19 phenazopyridine 200 mg tablet 200 mg PO TID PRN 30 Days #30 tab 12/05/19 12/07/19 12/07/19 tramadol 50 mg tablet 50 mg PO Q8H PRN #10 tab 12/05/19 12/07/19 12/07/19 Active Medications Generic Name Dose Route Start Last Admin Trade Name Freq PRN Reason Stop Dose Admin Acetaminophen 500 mg 12/07/19 12:08 12/08/19 06:11 Tylenol PO 01/06/20 12:07 500 mg Q6H PRN Administration Pain Fluconazole 100 mg 12/07/19 15:00 12/07/19 16:33 Diflucan PO 12/17/19 14:59 100 mg DAILY TIA Administration Protocol Hydromorphone HCl 0.5 mg 12/07/19 12:08 12/08/19 04:38 Dilaudid IV 12/21/19 12:07 0.5 mg Q3H PRN Administration Pain Hydrocortisone Sodium 0.5 mls @ 4 mls/min 12/07/19 12:30 12/08/19 06:12 Succinate 25 mg/ Syringe IV 01/06/20 12:29 4 mls/min Q8 TIA Administration Ioversol 94 ml 12/07/19 10:36 12/07/19 10:37 Optiray 320 100ml IV 12/11/19 10:35 94 ml ONCE PRN Administration Interaction Checking Oxybutynin Chloride 5 mg 12/07/19 12:08 12/07/19 20:32 Ditropan PO 01/06/20 12:07 5 mg BID PRN Administration bladder spasms Phenazopyridine HCl 200 mg 12/07/19 12:08 12/07/19 18:37 Pyridium PO 01/06/20 12:07 200 mg TID PRN Administration pain/dysuria Sulfasalazine 500 mg 12/07/19 21:00 12/07/19 20:10 Azulfidine Delayed Rel PO 01/06/20 20:59 500 mg BID TIA Administration Tamsulosin HCl 0.4 mg 12/07/19 21:00 12/07/19 20:10 Flomax PO 01/06/20 20:59 0.4 mg HS TIA Administration Tramadol HCl 50 mg 12/07/19 12:08 12/08/19 00:33 Ultram PO 01/06/20 12:07 50 mg Q8H PRN Administration pain NPO Date Last Intake of Fluids: 12/07/19 Time Last Intake of Fluids: 23:59 Last Intake of Fluids Comment: sips with meds Date Last Intake of Solids: 12/07/19 Time Last Intake of Solids: 17:00 Past Medical History Medical History Anemia Anxiety (Chronic) Depression (Chronic) Glaucoma (Chronic) Hearing deficit (Chronic) BL ROMERO Hyperlipidemia (Chronic) Hyponatremia Kidney stones (Chronic) Osteoarthritis (Chronic) Rheumatoid arthritis (Chronic) Past Family History Family History Other No pertinent family history in first degree relatives Past Surgical History Surgical History Hip fracture requiring operative repair History of cataract surgery (Resolved) left and right History of colonoscopy (Resolved) History of cystoscopy WITH STENT History of lithotripsy (Resolved) x 2 History of tooth extraction (Resolved) Nausea and vomiting after administration of anesthetic agent Status post cystoscopy with ureteral stent placement 10/28/2019 [facility] Social History Smoking Status: Former smoker tobacco type: cigarettes Smoking cigarettes per day: 20-40 Smoking End Date: 09/2019 Hx Alcohol Use: Yes Alcohol type: hard liquor alcohol intake frequency: holidays/special occasions only Hx Substance Use: No substance use type: does not use Physical Exam Vital Signs Last Vital Signs Temp 36.6 C 12/08/19 06:40 Pulse 81 12/08/19 06:40 Resp 20 12/08/19 06:40 BP 148/62 H 12/08/19 06:40 Pulse Ox 91 12/08/19 06:40 Testing Laboratory Results 12/08/19 05:14 12/08/19 05:14 PT 11.0 Seconds (9.0-12.0) 12/07/19 10:00 INR 1.0 (0.9-1.1) 12/07/19 10:00 Electrocardiogram Date: 12/07/19 Findings: + NSR @ (80) Chest X-Ray Date: 11/25/19 [place], [place] [phone] XRay Report Patient: CHARLY ANN Date: 11/24/19 MR#: [id number] [facility] Acct ID:[id number]: Date: 2City Zip: [place] [address] Age: 89Location: 3N Sex: F Room/Bed: [facility] Att Phy: Tejas Arguelles, II, DODiagnosis: Ureteral Obstruction Sidra Phy: Ben Schmidt, MDService Date: 11/25/19 Fam Phy:Interpreting Phy: Peter Santillan MD Admit Phy: Tejas Arguelles, II, DO Ordering Phy: Hemalatha Paz PA-C cc: ~ XR chest 2V PA/lateral CLINICAL HISTORY: Hypoxia, rule out pulm edema vs. PNA dyspnea COMPARISON STUDY: 11/12/2019 FINDINGS: Stable moderate emphysematous change. No focal infiltrative process. Diaphragms are smooth. No evidence for congestive failure. IMPRESSION: Emphysematous change. Mild stable cardiac megaly. ACT 112: Negative or not required by law. The above report was generated using voice recognition software. It may contain grammatical, syntax or spelling errors. Electronically signed by: Peter Santillan M.D. 11/25/2019 3:31 PM Dictated: 11/25/191529 Transcribed: 11/25/191529 Echocardiogram Date: 11/25/19 EF: 65-70 LV Function: normal Other Findings: + LVH (moderate) and + diastolic dysfunction (grade 1) Valvular Disease: + MR (moderate) volume depletion, RVSP 30-40 mm Hg, small pericardial effusion
[2019-12-08] MEDS ORDERED: ATROPINE SULFATE 0.1 MG/ML 10ML SYR IV PRN (09:08)
[2019-12-08] MEDS ORDERED: PHENYLEPHRINE 100MCG/ML 5ML SYR IV PRN (09:08)
[2019-12-08] MEDS ORDERED: ONDANSETRON INJ 2 MG/ML 2 ML VIAL IV PRN (09:08)
[2019-12-08] MEDS ORDERED: ePHEDrine sulfate 50 MG/ML AMP IV PRN (09:08)
[2019-12-08] MEDS ORDERED: HYDROmorphone INJ 1 MG/ML SYRINGE IV PRN (09:08)
[2019-12-08] MEDS ORDERED: fentaNYL citrate 100 MCG/2 ML VIAL IV PRN (09:08)
[2019-12-08] MEDS ORDERED: ONDANSETRON INJ 2 MG/ML 2 ML VIAL ONE (09:50)
[2019-12-08] MEDS ORDERED: fentaNYL citrate 100 MCG/2 ML VIAL ONE (09:50)
[2019-12-08] MEDS ORDERED: LIDOCAINE HCL 2% 2 ML VIAL/AMP(20MG/ML) INFIL ONE (09:50)
[2019-12-08] MEDS ORDERED: PROPOFOL IV EMULSION 10 MG/ML 20 ML VIAL IV ONE (09:50)
--- NOTE | 2019-12-08 10:15 | History & Physical Bridge Note ---
Date of Service December 08, 2019 History & Physical Bridge Note I have examined the patient, reviewed the History & Physical and in the interval since the performance of the History & Physical I have noted the following changes of clinical significance: no changes noted
--- NOTE | 2019-12-08 10:44 | Operative Report ---
PG Post Operative Report Pre & Post Diagnosis Operation Date: 12/08/19 11:00 Preoperative diagnosis: Large left lower pole renal stone with indwelling stent and intractable stent discomfort. Postoperative diagnosis: Same. Procedure: Cystoscopy, left ureteral stent exchange, left sided flexible ureteroscopy with laser lithotripsy, basket stone extraction, retrograde pyelography. Surgeon: Dr. Dariusz Erickson. Anesthesia: General anesthesia with laryngeal mask. Drains left in place: 5 Faroese 24 cm loop stent with string in place on the left-hand side. Specimen sent pathology: Stent for culture and sensitivity, stone for culture and sensitivity as well as chemical analysis. EBL: Minimal Findings: No significant residual stone fragments after completion of case, no ureteral injuries, good stent position after completion. I identified the patient and participated in the time-out.: Yes Procedure Operation Date: 12/08/19 11:00 Brief history: Patient is an 89-year-old mildly demented female with a history of bilateral upper tract stones and bilateral stents. Unfortunately, she has been tolerating her stents very poorly and has been readmitted recently for stent intolerance on the left-hand side despite a lack of obstructing stone. Due to ongoing coronavirus pandemic and her need for recurrent hospitalization and ER presentation endoscopic management is being performed acutely to allow the patient's ongoing urologic issues to be resolved. Care is discussed with the patient and the patient's son who is also the power of business attorney who provides consent for the case. Intravenous ciprofloxacin is provided for antibiotic coverage and SCDs used for DVT prophylaxis. Please see urology notes for further details. Procedure: Patient was properly identified and brought into the operative suite after identification of appropriate consent in the chart. General anesthesia with laryngeal mask was initiated and full timeout procedure was followed. Patient was prepped and draped in the standard fashion for this procedure and then a 22 Faroese rigid cystoscope was introduced into the bladder under direct visualization. Bladder was surveyed demonstrating mild inflammation with no intravesical lesions, papillary masses or tumors. Left-sided ureteral stent was grasped and brought down to the level of the meatus using a stent grasper and then cannulated using a sensor tip wire. Stent was noted to have significant debris on it and was sent for culture. This was advanced up to the level of the left renal pelvis and kept until the end of the case as a safety wire. 5 Faroese open-ended catheter was passed alongside this and retrograde pyelography was performed demonstrating a normal ureter and collecting system. Lower pole stone was present on tar leveler imaging as previously noted. Amplatz superstiff working wire was placed followed by a 12/14 Faroese 28 cm ureteral access sheath. Fiberoptic flexible ureteroscope was advanced up to the level of the left kidney and complete pyeloscopy was performed demonstrated the patient stone and mild irritation from her stent. Stone was noted in the lower pole as well as significant Pyridium artifact. Stone was brought up into the midpole for easier access. This was fragmented into smaller pieces using a 200 m fiber on stabilization settings. These were grasped using a 0 tip basket and extracted intact without trauma to the ureter. This was continued until no significant residual stone fragments were present. Stone fragments were sent for both culture and sensitivity. Pyeloscopy was repeated demonstrating no evidence of residual significant intrarenal findings. Complete exit ureteroscopy including removal of the ureteral access sheath for inspection of the covered ureter demonstrated mild ureteral irritation without significant injury, tumors, strictures or other abnormalities. After ureteroscopy was complete cystoscope was backloaded over the safety wire and a 5 Faroese 24 cm loop stent was advanced with a partial coil at the level of the left renal pelvis. Strings were left intact, shortened and taped to the inside of the left thigh. Bladder was drained and cystoscope was removed. Anesthesia was reversed and patient was transferred to recovery room in stable condition. Follow-up CARE: Patient to be readmitted to the floor hopefully for discharge in the near future. Will arrange for outpatient stent removal. Care is discussed perioperatively with the patient's son by phone today. Surgeon Dariusz Erickson MD Employment Security Officer None Estimated Blood Loss 0 Findings Consistent with Post-Op Diagnosis Specimens See above Description of Procedure See above I attest to the content of the Intraoperative Record and any orders documented therein. Any exceptions are noted below.
[2019-12-08] MEDS ORDERED: DEXAMETHASONE SOD INJ 4 MG/ML VIAL ONE (11:15)
[2019-12-08] MEDS ORDERED: IOTHALAMATE MEGLUMINE II 17.2% 250 ML VIAL INSTIL SCH (11:30)
--- NOTE | 2019-12-08 11:41 | Fluoroscopy Report ---
INTRAOPERATIVE RADIOGRAPHS CLINICAL HISTORY: Left-sided laser lithotripsy and stent exchange. Fluoroscopy time: 46 seconds. FINDINGS: 4 spot fluoroscopic views of the left abdomen are correlated with abdominal CT dated 020. The initial image shows the proximal end of a left ureteral stent in place. On the second image the stent has been removed and a wire is present in the proximal left ureter. The third image shows a lithotripsy device has been advanced to the level of a large lower pole calculus. The final image sh ows the proximal end of a left ureteral stent in appropriate position. IMPRESSION: Intraoperative images from a left-sided laser lithotripsy and ureteral stent exchange. Se e operative report for detailed findings. Electronically signed by: Jose F Cohn M.D. 12/08/2019 11:39 AM
[2019-12-08] MEDS: LABETALOL HCL IV 5 MG/ML 20ML IV PRN ×3 (11:59→12:20)
[2019-12-08] MEDS ORDERED: PROMETHAZINE HCL 6.25 MG in SODIUM CHLORIDE 0.9% 50 ML IV STA (12:28)
[2019-12-08] MEDS ORDERED: HydrALAZINE HCL 20 MG/ML VIAL ONE (12:52)
[2019-12-08] MEDS ORDERED: HydrALAZINE HCL 20 MG/ML VIAL IV ONE (12:59)
--- NOTE | 2019-12-08 13:17 | Anesthesiology Progress Note ---
Date of Service December 08, 2019 Anesthesia Post Procedure Vital Signs Vital Signs: Temp Pulse Pulse Resp BP BP Pulse Ox 12/08/19 13:00 37.3 C 72 16 165/68 H 94 12/08/19 12:50 69 14 174/73 H 95 12/08/19 12:40 95 H 12 172/74 H 94 12/08/19 12:30 68 14 172/89 H 94 12/08/19 12:20 69 12 197/82 H 95 12/08/19 12:10 72 14 196/86 H 93 12/08/19 12:00 72 15 196/86 H 95 12/08/19 11:50 87 14 191/86 H 95 12/08/19 11:42 36.8 C 89 15 198/86 H 94 12/08/19 09:10 36.9 C 80 20 129/63 92 12/08/19 06:40 36.6 C 81 20 148/62 H 91 12/07/19 22:54 36.9 C 91 H 18 161/73 H 91 12/07/19 18:36 82 20 152/70 H 93 12/07/19 18:03 37.3 C 12/07/19 15:06 37.0 C 85 18 169/75 H 91 Pain Intensity Bilateral Flank: Pain Intensity: 2 Lower Back: Pain Intensity: 2 Transfer of Care Handoff Completed per policy Notes Mental Status: alert / awake / arousable Patient Amnestic to Procedure: Yes Nausea / Vomiting: adequately controlled Pain: adequately controlled Airway Patency, RR, SpO2: stable & adequate BP & HR: stable & adequate Hydration State: stable & adequate Anesthetic Complications: no major complications apparent and Pt Satisfied with anesthetic care Notes: The patient is awake and comfortable at baseline. Her blood pressure was treated with labetalol and hydralazine in the PACU.
[2019-12-08] MEDS: DULOXETINE HCL 20 MG CAP PO SCH (13:53)
[2019-12-08] MEDS: ATORVASTATIN 20 MG TAB PO SCH (13:54)
[2019-12-08] MEDS: FLUCONAZOLE 100 MG TAB PO SCH (13:54)
[2019-12-08] MEDS: sulfaSALAzine 500 MG TABEC PO SCH ×2 (13:55→20:50)
[2019-12-08] MEDS: TAMSULOSIN HCL 0.4 MG CAP PO SCH (20:50)
--- NOTE | 2019-12-08 22:06 | Hospitalist Progress Note ---
Date of Service December 08, 2019 Assessment & Plan (1) Flank pain: - Related to acute urinary issues; CT A/P showed removal of right ureter stent, moderate right hydronephrosis, left ureter stent in position with moderate left hydronephrosis, no obstructing calculi. -POD #0 cystoscopy, left ureteral stent exchange, left sided flexible ureteroscopy with laser lithotripsy, basket stone extraction, and retrograde pyelography performed by Dr. Erickson. - Oxybutynin, Pyridium, Tylenol, Tramadol and Dilaudid prn pain. -will continue to monitor overnight - Continue Flomax 0.4 mg daily. -restarted diet (2) Hydronephrosis: - Noted on CT A/P, see above. (3) Ureteral obstruction: - Recently admitted 11/23-11/26, s/p R URS, LL, right stent exchange on 11/23 with urology. - See plan as outlined above, urology consult pending. (4) UTI (urinary tract infection): - UC positive for Itzel albicans on 12/04, was previously positive on 11/25 and patient completed 7 day course of Fluconazole. - Will treat if recommended by urology. (5) History of hemiarthroplasty of hip: - Completed 09/14/19. - PT/OT evaluation prior to discharge. (6) Hypoxia: improved. - Recommend follow up to evaluate for underlying COPD. (7) Hypertension: - Hold Lisinopril during operative setting. (8) Hyperlipidemia: - Continue statin as prescribed. (9) Depression: - Continue Cymbalta as prescribed. (10) Rheumatoid arthritis: - Continue home Sulfasalazine. - Hold home Prednisone, start Hydrocortisone 25 mg IV q8hr due to recent syncope following last procedure with concern for adrenal insufficiency. (11) Chronic kidney disease, stage 3a: - Creatinine is currently at baseline; BUN is elevated. -will monitor BP during hospital stay, currently above goal, but no need to aggressively treat. (12) Anemia: - Macrocytic anemia. - B12 and Folate were WNL. (13) Tobacco use: - H/o tobacco abuse, quit a few months ago. (14) Hyponatremia: - Na level 128, likely SIADH. will monitor. (15) Hyperkalemia: -improved (16) DVT prophylaxis: - SCDs; hold pharmacologic for procedure. Dispo: Med/surg for urology evaluation. Admission and Anticipated Discharge Date Admission Date: December 07, 2019 Subjective Patient reports having pain after the procedure and does not feel well enough to be discharged. Patient denies any fever, chills, nausea, or vomiting. Review of Systems Review of Systems: All systems reviewed & are unremarkable except as noted in HPI & below Physical Exam Physical Exam: General: Resting comfortably HEENT: NC/AT; PERRLA with EOMI; [place] conjunctiva, MMM. No erythema of posterior pharynx Neck: Supple and nontender Cardiac: RRR Lungs: CTA bilaterally Abdomen: Bowel normoactive X 4; Nontender to palpation Extremities: Warm. No edema present Neuro: No focal weakness Skin: No rash Results & Data Results & Data ([facility]) Vital Signs (Past 12 Hours) Vital Signs Temp Pulse Pulse Resp BP BP Pulse Ox 12/08/19 21:57 93 12/08/19 18:55 36.8 C 80 16 154/65 H 92 12/08/19 16:20 37.0 C 77 16 136/64 95 12/08/19 15:18 37.1 C 81 16 145/61 H 95 12/08/19 14:15 87 18 117/57 L 92 12/08/19 13:50 37.2 C 81 18 163/64 H 95 12/08/19 13:34 37.0 C 75 16 170/63 H 95 12/08/19 13:00 37.3 C 72 16 165/68 H 94 12/08/19 12:50 69 14 174/73 H 95 12/08/19 12:40 95 H 12 172/74 H 94 12/08/19 12:30 68 14 172/89 H 94 12/08/19 12:20 69 12 197/82 H 95 12/08/19 12:10 72 14 196/86 H 93 12/08/19 12:00 72 15 196/86 H 95 12/08/19 11:50 87 14 191/86 H 95 12/08/19 11:42 36.8 C 89 15 198/86 H 94 PG Care Time/CCT Total # of Minutes Spent Total Time Spent with Patient: Total time spent is greater than 50% in coordination of care (as documented) at patient's floor/unit and/or counseling patient: Coding Level of Care Code 70286 Subseq Obs Care Lvl 3 Diagnoses Flank pain R10.9 Hydronephrosis N13.30 Ureteral obstruction N13.5 Laterality: left UTI (urinary tract infection) N39.0 Hematuria presence: without hematuria Urinary tract infection type: site unspecified History of hemiarthroplasty of hip Z96.649 Hypoxia R09.02 Hypertension I10 Hyperlipidemia E78.5 Hyperlipidemia type: unspecified Depression F33.9 Active/Remission status: remission status unspecified Depression Type: major depressive disorder Major depression recurrence: recurrent Rheumatoid arthritis M06.9 Rheumatoid arthritis location: unspecified site Rheumatoid factor presence: unspecified presence Chronic kidney disease, stage 3a N18.3 Anemia D64.9 Tobacco use Z72.0 Hyponatremia E87.1 Hyperkalemia E87.5 DVT prophylaxis Z29.9 (1) UTI (urinary tract infection) Hematuria presence: without hematuria Urinary tract infection type: site unspecified Qualified Code(s): N39.0 - Urinary tract infection, site not specified (2) Rheumatoid arthritis Rheumatoid arthritis location: unspecified site Rheumatoid factor presence: unspecified presence Qualified Code(s): M06.9 - Rheumatoid arthritis, unspecified (3) Depression Active/Remission status: remission status unspecified Depression Type: major depressive disorder Major depression recurrence: recurrent Qualified Code(s): F33.9 - Major depressive disorder, recurrent, unspecified (4) Hyperlipidemia Hyperlipidemia type: unspecified Qualified Code(s): E78.5 - Hyperlipidemia, unspecified (5) Ureteral obstruction Laterality: left Qualified Code(s): N13.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
[2019-12-09] MEDS: PHENAZOPYRIDINE HCL 200 MG TAB PO PRN (04:15)
[2019-12-09] MEDS: HYDROCORTISONE SOD 25 MG in SYRINGE 0 ML IV SCH (05:18)
[2019-12-09] MEDS: TRAMADOL HCL 50 MG TABLET PO PRN (05:18)
--- NOTE | 2019-12-09 08:36 | Urology Progress Note ---
Date of Service December 09, 2019 Assessment & Plan (1) Kidney stone on left side: (2) Hydronephrosis: (3) Flank pain: 89 year-old female with multiple comorbidities admitted for worsening left flank pain and nausea in the setting of left ureteral stent and 9 mm left renal stone. -POD #1 cystoscopy, left ureteral stent exchange, left sided flexible ureteroscopy with laser lithotripsy, basket stone extraction, and retrograde pyelography performed by Dr. Erickson. -Patient clinically progressing, pain now tolerable. -Remains afebrile. -Renal function stable. -Urine culture from 12/04 positive for Itzel - recommend treatment with Diflucan for total of 7 days. -Okay to discharge from perspective. -Discussed with patient a phone call for stent removal instructions versus office visit, she prefers office visit. -Follow-up appointment with our service for stent removal in place. -Expected clinical course discussed, all questions answered. Patient's son Daniel also updated. They are in agreement with plan. Thank you for allowing us to participate in the acute care of Mrs. Dumont. Please reconsult us with additional questions, concerns or changes in patient status. Subjective POD #1 cystoscopy, left ureteral stent exchange, left sided flexible ureteroscopy with laser lithotripsy, basket stone extraction, and retrograde pyelography. Patient awake, alert, comfortable. Feeling better overall. Pain is currently tolerable with PO pain medications. No longer having severe pain. She has been tolerating diet without nausea or vomiting. She is voiding spontaneously with periods of incontinence. Denies dysuria, hematuria, frequency, or urgency. Denies fevers or chills. Has been out of bed without dizziness or lightheadedness. She is requesting to go home today. Chart review: Afebrile Labs from 12/07 - wbc 9.26, hgb 10.1, creatinine 0.83 Urine culture from 12/04 positive for Itzel - currently on PO Fluconazole. Review of Systems Constitutional: no fever and no chills Gastrointestinal: as per Subjective / HPI; no nausea and no vomiting Genitourinary: as per Subjective / HPI Neurologic: no dizziness and no syncope Physical Exam Constitutional: well developed and well nourished; no acute distress and not ill appearing Respiratory: normal respiratory effort and able to speak in complete sentences; no respiratory distress and no audible wheezes Cardiovascular: Extremities: no calf tenderness and no edema Gastrointestinal (Abdomen): Inspection/Auscultation: abdomen normal to inspection; abdomen not distended Percussion/Palpation: abdomen soft; abdomen nontender and no guarding Musculoskeletal: no cyanosis or clubbing, extremities motor strength 5/5 Psychiatric: Orientation: alert, oriented x 3 and cooperative Affect: euthymic affect Genitourinary: no CVA tenderness Results & Data Vital Signs (Past 12 Hours) Vital Signs Temp Pulse Resp BP Pulse Ox 12/09/19 07:27 36.4 C L 84 16 178/69 H 91 12/09/19 03:23 37.0 C 76 18 160/69 H 91 12/08/19 22:59 81 18 166/67 H 94 12/08/19 21:57 93 PG Care Time/CCT Total # of Minutes Spent Total Time Spent with Patient: Total time spent is greater than 50% in coordination of care (as documented) at patient's floor/unit and/or counseling patient: Coding Level of Care Code 95691 Subseq Hosp Care Lvl 2 Diagnoses Kidney stone on left side N20.0 Hydronephrosis N13.30 Flank pain R10.9
[2019-12-09] MEDS: sulfaSALAzine 500 MG TABEC PO SCH (08:46)
[2019-12-09] MEDS: ATORVASTATIN 20 MG TAB PO SCH (08:47)
[2019-12-09] MEDS: FLUCONAZOLE 100 MG TAB PO SCH (08:47)
[2019-12-09] MEDS: DULOXETINE HCL 20 MG CAP PO SCH (08:47)
[2019-12-09] MEDS: ACETAMINOPHEN 500 MG TAB PO PRN (12:05)
[2019-12-12 17:45] LABS: Calculus Nidus Not Observed; Component 2 DNR
--- NOTE | 2019-12-13 23:55 | Discharge Summary ---
Date of Service December 09, 2019 Admission HPI Per Admitting Provider Mrs. Dumont is an 89 y/o female with past medical history of RA, HLD, Depression, Glaucoma, Kidney stones, HTN, CKD stage III who presented with increased flank pain. She was recently admitted 11/23-11/26 for urological intervention -- she had a cystoscopy, laser destruction of stone, extraction of stone and exchange of right stent on 11/23. She also had a syncopal episode during this admission, hospitalist team was consulted for management. Patient had issues with pain control post op. She presents today with increased flank pain; urology planned to complete left ESWL on Thursday12/09/19 as outpatient. She has bilateral flank pain, R>L, rated as a 10/10 - no improvement with PO meds at home. Has mild intermittent dysuria but denies hematuria, fever, chills. Has mild nausea, denies vomiting; had a BM this morning. Denies chest pain, SOB, LE edema, headache, URI symptoms. ER course: CT showed removal of right ureter stent, left ureter stent in position, nonobstructing calculi in both kidneys. She received Fentanyl 75 mcg IV along with 500 cc bolus/Zofran 4 mg IV. She will be admitted for IV pain control and urology consult. Principal Diagnosis left flank pain Discharge Exam General: Resting comfortably HEENT: NC/AT; PERRLA with EOMI; National conjunctiva, MMM. No erythema of posterior pharynx Neck: Supple and nontender Cardiac: RRR Lungs: CTA bilaterally Abdomen: Bowel normoactive X 4; Nontender to palpation Extremities: Warm. No edema present Neuro: No focal weakness Skin: No rash Discharge Data Allergies Allergy/AdvReac Type Severity Reaction Status Date / Time Sulfa (Sulfonamide Allergy Intermediate Rash Verified 12/11/19 13:04 Antibiotics) mirabegron [From Myrbetriq] AdvReac Intermediate hypertensio Verified 12/11/19 13:04 n nicotine AdvReac Mild PATCH-SKIN Verified 12/11/19 13:04 IRRITATION shrimp AdvReac Mild Photosensit Verified 12/11/19 13:04 ivity Consultations 12/07/19 11:13 ED Decision to Admit Stat 12/07/19 12:08 Consult Urology Routine Procedures Performed Operation Date: 12/08/19 11:00 Actual Procedures p Left Ureteroscopic Laser Lithotripsy with Basket Stone Extraction and(Left) - Dariusz Erickson MD s Left Ureteral Stent Exchange(Left) - Dariusz Erickson MD s Cystoscopy, Left Retrograde Pyelogram, (Left) - Dariusz Erickson MD Ordered Studies 12/07/19 09:50 CT abd pelvis IV con only Stat 12/08/19 FL retrograde includes kub Routine Hospital Course (1) Flank pain: - Related to acute urinary issues; CT A/P showed removal of right ureter stent, moderate right hydronephrosis, left ureter stent in position with moderate left hydronephrosis, no obstructing calculi. -POD #1 cystoscopy, left ureteral stent exchange, left sided flexible uretero scopy with laser lithotripsy, basket stone extraction, and retrograde pyelography performed by Dr. Erickson. - Oxybutynin, Pyridium, Tylenol, Tramadol and Dilaudid prn pain. -will continue to monitor overnight - Continue Flomax 0.4 mg daily. -restarted diet On day of discharge: -Patient clinically progressing, pain now tolerable. -Remains afebrile. -Renal function stable. -Urine culture from 12/04 positive for Itzel - recommend treatment with Diflucan for total of 7 days. -Okay to discharge from [facility] Had Physical therapy, patient did not require inpatient rehab. Informed son who was agreeable to discharge. (2) Hydronephrosis: - Noted on CT A/P, see above. (3) Ureteral obstruction: - Recently admitted 11/23-11/26, s/p R URS, LL, right stent exchange on 11/23 with urology. - See plan as outlined above, urology consult. (4) UTI (urinary tract infection): - UC positive for Itzel albicans on 12/04, was previously positive on 11/25 and patient completed 7 day course of Fluconazole. - Will treat if recommended by urology. (5) History of hemiarthroplasty of hip: - Completed 09/14/19. - (6) Hypoxia: improved. - Recommend follow up to evaluate for underlying COPD. (7) Hypertension: - Hold Lisinopril during operative setting. (8) Hyperlipidemia: - Continue statin as prescribed. (9) Depression: - Continue Cymbalta as prescribed. (10) Rheumatoid arthritis: - Continue home Sulfasalazine. - Hold home Prednisone, start Hydrocortisone 25 mg IV q8hr due to recent syncope following last procedure with concern for adrenal insufficiency. (11) Chronic kidney disease, stage 3a: - Creatinine is currently at baseline; BUN is elevated. -will monitor BP during hospital stay, currently above goal, but no need to aggressively treat. (12) Anemia: - Macrocytic anemia. - B12 and Folate were WNL. (13) Tobacco use: - H/o tobacco abuse, quit a few months ago. (14) Hyponatremia: - Na level 128, likely SIADH. will monitor. (15) Hyperkalemia: -improved (16) DVT prophylaxis: - SCDs; hold pharmacologic for procedure. Total Time Total Time Spent Total Time Spent (In Minutes): 32 Discharge Plan Discharge Items Patient Disposition: Home - Home Health Services Reason For Visit: KIDNEY STONE Discharge Diagnosis: kidney stone Condition on Discharge: Fair Activity: Resume your previous activity Non-emergency contact: Primary Care Provider Call non-emergency contact if: you have any medication questions Follow-up/Referrals: Ben Schmidt [Primary Care Provider] - 01/10/20 10:30 am [facility],Nurse [Physician] - 12/16/19 9:00 am (Please have your KUB done prior to appointment. ) Diet: Heart Healthy Addtl Attending Provider Instructions: You have been hospitalized for an acute medical problem. During your stay at [facility], we have made an effort to correct the problem that brought you to the hospital while keeping you as comfortable as possible. Medications were used to bring your condition under control and your discharge instructions will include directions for any medications you should take after leaving the hospital. Please make sure you see your Primary Care Provider as part of your follow up plan. Followup next week on 12/15 with the urology nurses for tethered stent removal. Pending Studies at Discharge: No Stand-Alone Forms: [facility] [employer] Smoking Cessation Medications and DC Order Prescriptions: New fluconazole 100 mg Tablet 100 mg PO DAILY Qty: 12 RF: 0 Continued tamsulosin 0.4 mg capsule 0.4 mg PO HS Qty: 30 RF: 3 oxybutynin chloride 5 mg tablet 5 mg PO BID PRN (Reason: bladder spasms) Qty: 30 RF: 0 phenazopyridine [Pyridium] 200 mg tablet 200 mg PO TID PRN (Reason: pain) 30 Days Qty: 30 RF: 0 tramadol [Ultram] 50 mg tablet 50 mg PO Q8H PRN (Reason: pain) Qty: 10 RF: 0 polyethylene glycol 3350 [Miralax] 17 gram Powder In Packet 17 g PO QAM PRN (Reason: Constipation) RF: 0 melatonin 2.5 mg/10 mL Liquid 5 mg PO HS RF: 0 lisinopril 20 mg Tablet 20 mg PO QAM RF: 0 Centrum Silver Women 8 mg iron-400 mcg-300 mcg Tablet 1 tab PO QAM RF: 0 prednisone 10 mg tablet 5 mg PO QAM RF: 0 atorvastatin 20 mg tablet 20 mg PO QAM RF: 0 duloxetine [Cymbalta] 20 mg capsule,delayed release(DR/EC) 20 mg PO QAM RF: 0 cholecalciferol (vitamin D3) [Vitamin D3] 50 mcg (2,000 unit) Capsule 50 mcg PO QAM RF: 0 acetaminophen [Tylenol Extra Strength] 500 mg Tablet 500 mg PO Q6H PRN (Reason: Pain) RF: 0 No Action ketorolac 10 mg tablet 10 mg PO Q6 PRN (Reason: Pain) RF: 0 Discharge Orders: Discharge Order (Routine); Ordered 12/09/19 Ordered By: Dequan Heller/Other Patient Handouts: Kidney Stones Admission Data Admit Date/Time: 12/07/19 11:21 Attending Provider: Dequan Alvarado Admit Provider: Dequan Alvarado Primary Care Provider: Ben Schmidt Other Providers: Dequan Alvarado ; Lalito Lan Other Interventions: Discharge Summary Assessment (RN) Last Done: 12/09/19 11:18 DC Date/Time DO NOT enter until pt leaves facility: 12/09/19 12:19 Coding Level of Care Code 63124 OBS Care - Discharge Diagnoses Flank pain R10.9 Hydronephrosis N13.30 Ureteral obstruction N13.5 Laterality: left UTI (urinary tract infection) N39.0 Hematuria presence: without hematuria Urinary tract infection type: site unspecified History of hemiarthroplasty of hip Z96.649 Hypoxia R09.02 Hypertension I10 Hyperlipidemia E78.5 Hyperlipidemia type: unspecified Depression F33.9 Active/Remission status: remission status unspecified Depression Type: major depressive disorder Major depression recurrence: recurrent Rheumatoid arthritis M06.9 Rheumatoid arthritis location: unspecified site Rheumatoid factor presence: unspecified presence Chronic kidney disease, stage 3a N18.3 Anemia D64.9 Tobacco use Z72.0 Hyponatremia E87.1 Hyperkalemia E87.5 DVT prophylaxis Z29.9
== END 2019-12-09 12:19 | disposition home health service (06) ==
LOC: 3W 09:35 → ED 09:35 → 3W 11:43 → 3E 12-08 13:21

== ENCOUNTER 2019-12-11 12:12 | Inpatient (IN) ==
[2019-12-11] MEDS ORDERED: MoRPHine SULFATE 4 MG/ML 1 ML CARP\\VIAL IV STA (12:32)
[2019-12-11] MEDS ORDERED: ONDANSETRON INJ 2 MG/ML 2 ML VIAL IV STA (12:32)
[2019-12-11] MEDS ORDERED: SODIUM CHLORIDE 0.9% 500 ML IV SCH (12:45)
--- NOTE | 2019-12-11 12:49 | Emergency Department Note ---
History of Present Illness General Chief complaint: Fall Stated complaint: fall/ head pain Time Seen by Provider: 12/11/19 12:19 Source: patient and family Mode of arrival: EMS History of Present Illness Provider complaint: Hip pain Onset (ago): minute(s) Location: lower extremity (Right hip) and right Radiation: non-radiation Severity: moderate Pain Consistency: + constant Quality: + sharp Exacerbated By: + movement Associated symptoms: + syncope (Possible) and + weakness; no chest pain, no cough, no fever/chills, no malaise and no shortness of breath Treatments prior to arrival: other (Tramadol) The patient is an 89-year-old female recently discharged from the hospital for u reterolithiasis status post lithotripsy and stent placement. She is presenting after a fall. The patient states that she was in the kitchen picking up a bowl of vegetable soup when she felt very weak and fell to the ground. She does remember hitting her head on the ground but is not sure she subsequently passed out. She complains of pain to the right hip. It is sharp. Is worse with movement. No associated numbness or weakness in the leg. She denies any neck pain, chest discomfort or pain, shortness of breath, fever, cough or cold symptoms, recent travel or sick exposure. The patient states she is incontinent of urine and has been for some time. She states her urine is orange due to the medication she is taking. Her son states that she has been on pain medication as well as antibiotics. She did take her tramadol today. She states that she takes it for her pain in her flank which she has had since she was diagnosed with kidney stones. She has had no black or bloody stools or diarrhea. She did injure her right shoulder as well when she fell and has a minor abrasion to her arm. Home Medications Home Medications Medication Instructions Recorded Confirmed Type Centrum Silver Women 1 tab PO QAM 07/06/18 12/11/19 History atorvastatin 20 mg PO QAM 09/05/19 12/11/19 History cholecalciferol (vitamin D3) 50 mcg PO QAM 09/05/19 12/11/19 History [Vitamin D3] duloxetine [Cymbalta] 20 mg PO QAM 09/05/19 12/11/19 History prednisone 5 mg PO QAM 09/05/19 12/11/19 History melatonin 5 mg PO HS 09/28/19 12/11/19 History polyethylene glycol 3350 [Miralax] 17 g PO QAM PRN 09/28/19 12/11/19 History lisinopril 20 mg PO QAM 11/11/19 12/11/19 History acetaminophen [Tylenol Extra 500 mg PO Q6H PRN 11/12/19 12/11/19 History Strength] oxybutynin chloride 5 mg tablet 5 mg PO BID PRN #30 tab 12/01/19 12/11/19 Rx tamsulosin 0.4 mg capsule 0.4 mg PO HS #30 cap 12/01/19 12/11/19 Rx phenazopyridine 200 mg tablet 200 mg PO TID PRN 30 Days #30 tab 12/05/19 12/11/19 Rx tramadol 50 mg tablet 50 mg PO Q8H PRN #10 tab 12/05/19 12/11/19 Rx fluconazole 100 mg PO DAILY #12 tab 12/08/19 12/11/19 Rx ketorolac 10 mg PO Q6 PRN 12/11/19 12/11/19 History Allergies Allergy/AdvReac Type Severity Reaction Status Date / Time Sulfa (Sulfonamide Allergy Intermediate Rash Verified 12/11/19 13:04 Antibiotics) [email or web address] [From Myrbetriq] AdvReac Intermediate hypertensio Verified 12/11/19 13:04 n nicotine AdvReac Mild PATCH-SKIN Verified 12/11/19 13:04 IRRITATION shrimp AdvReac Mild Photosensit Verified 12/11/19 13:04 ivity Past Med/Surg History Medical History Anemia Anxiety (Chronic) Depression (Chronic) Glaucoma (Chronic) Hearing deficit (Chronic) BL [place]ERO Hyperlipidemia (Chronic) Hyponatremia Kidney stones (Chronic) Osteoarthritis (Chronic) Rheumatoid arthritis (Chronic) Surgical History Hip fracture requiring operative repair History of cataract surgery (Resolved) left and right History of colonoscopy (Resolved) History of cystoscopy WITH STENT History of lithotripsy (Resolved) x 2 History of tooth extraction (Resolved) Nausea and vomiting after administration of anesthetic agent Status post cystoscopy with ureteral stent placement 10/28/2019 [facility] Family History Father Hypertension Other No pertinent family history in first degree relatives Social History Preferred Language: Italian Communication Ability: Effective Visual Impairment: No 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 and A total of 10 systems reviewed and were otherwise negative Physical Exam Vital Signs Vital Signs - 24 hr 12/11/19 12:24 12/11/19 12:43 12/11/19 15:00 Temperature 36.6 C Temperature Source Oral Pulse Rate 85 80 Pulse Rate [Apical] 80 78 Pulse Rhythm Regular Respiratory Rate 18 18 20 Respiratory Effort / Characteristics Non-Labored Spontaneous Non-Labored Spontaneous Non-Labored Spontaneous Respiratory Depth Normal Normal Normal Respiratory Pattern Regular Regular Regular Blood Pressure 175/83 H Blood Pressure [Left Arm] 178/92 H 199/83 H Blood Pressure Mean 113 Blood Pressure Mean [Left Arm] 120 121 Blood Pressure Position Lying Blood Pressure Position [Left Arm] Lying Lying Pulse Oximetry 86 L 92 94 Oxygen Delivery Method Room Air Room Air Room Air Oxygen Flow Rate 2 Sepsis Recent Fever Within 48 Hours No Sepsis New/Unexplained Change in Mental Status No Sepsis Action Taken by Nursing No Action Required 12/11/19 15:51 Temperature Temperature Source Pulse Rate Pulse Rate [Apical] 82 Pulse Rhythm Respiratory Rate 18 Respiratory Effort / Characteristics Non-Labored Spontaneous Respiratory Depth Normal Respiratory Pattern Regular Blood Pressure Blood Pressure [Left Arm] 184/86 H Blood Pressure Mean Blood Pressure Mean [Left Arm] 118 Blood Pressure Position Blood Pressure Position [Left Arm] Lying Pulse Oximetry 93 Oxygen Delivery Method Nasal Cannula Oxygen Flow Rate 2 Sepsis Recent Fever Within 48 Hours Sepsis New/Unexplained Change in Mental Status Sepsis Action Taken by Nursing Constitutional: Vital signs reviewed. Eyes: Pupils are equal round reactive to light. Conjunctiva are noninjected. ENT: Pharynx is clear without erythema or exudate. Mucous membranes are dry. Neck supple without meningeal signs. Respiratory: Clear to auscultation bilaterally. Breath sounds are equal bilaterally. Cardiovascular: Regular rate and rhythm. No rubs or gallops. GI: Soft, nondistended and nontender. Bowel sounds are present. Musculoskeletal: Tenderness to the right hip without deformity or shortening. Neurovascularly intact distally. No tenderness to the right knee or ankle. Mild tenderness to the right shoulder without tenderness to the humerus, elbow forearm or wrist or hand. Integumentary: No cyanosis. or jaundice. Skin tear to the right elbow. Neurologic: The patient is awake and alert. Cranial nerves II-XII are intact. Motor is 5 out of 5 all extremities. Limiting testing of the proximal lower extremity due to pain. Sensation is intact to light touch all extremities. Normal speech. No pronator drift. Psychiatric: Normal affect. Not anxious appearing. Course Administered Medications Heparin Sodium/Dextrose (Heparin Sodium/Dextrose) 25,000 units in 500 mls @ 18 mls/hr IV .Q24H [facility]; Protocol Stop: 01/10/20 15:14 Last Admin: 12/11/19 15:39 Dose: 900 units/hr, 18 mls/hr Documented by: [id number] Cosigned by: [id number] Ioversol (Optiray 320 125ml) 119 ml IV ONCE PRN PRN Reason: Interaction Checking Stop: 12/15/19 14:43 Last Admin: 12/11/19 14:46 Dose: 119 ml Documented by: [id number] Discontinued Medications Heparin Sodium (Porcine) (Heparin Iv Bolus) Confirm Administered Dose 10,000 units .ROUTE .STK-MED ONE Stop: 12/11/19 15:31 Last Admin: 12/11/19 15:39 Dose: Not Given Documented by: [id number] Heparin Sodium/Dextrose () 1 ea IV NOW STA; Protocol Stop: 12/11/19 15:11 Last Admin: 12/11/19 15:34 Dose: Not Given Documented by: [id number] Sodium Chloride (Nss) 500 mls @ 999 mls/hr IV .Q31M [facility] Stop: 12/11/19 13:15 Last Infusion: 12/11/19 13:49 Dose: 0 mls/hr Documented by: [id number] Admin: 12/11/19 13:13 Dose: 999 mls/hr Documented by: [id number] Magnesium Sulfate/Dextrose (Magnesium Sulfate / D5w) 1 gm in 100 mls @ 100 mls/hr IV ONE ONE Stop: 12/11/19 15:23 Last Infusion: 12/11/19 16:02 Dose: 0 mls/hr Documented by: [id number] Admin: 12/11/19 15:02 Dose: 100 mls/hr Documented by: [id number] Heparin Sodium (Porcine) 4,000 (units/ Syringe) 4 mls @ 10 mls/min IV NOW ONE Stop: 12/11/19 15:31 Last Admin: 12/11/19 15:39 Dose: 10 mls/min Documented by: [id number] Cosigned by: [id number] Morphine Sulfate (Morphine Sulfate) 4 mg IV NOW STA Stop: 12/11/19 12:33 Last Admin: 12/11/19 13:13 Dose: 4 mg Documented by: [id number] Morphine Sulfate (Morphine Sulfate) 2 mg IV NOW STA Stop: 12/11/19 15:36 Last Admin: 12/11/19 15:38 Dose: 2 mg Documented by: [id number] Ondansetron HCl (Zofran) 4 mg IV NOW STA Stop: 12/11/19 12:33 Last Admin: 12/11/19 13:13 Dose: 4 mg Documented by: [id number] Critical Care Time Total Critical Care Time: 45 I have personally spent approximately 45 minutes of critical care time in the di rect management of this patient. This includes bedside care, interpretation of diagnostic studies, and testing, discussion with consultants, patient, and family members, and other required patient management activities. These minutes are in excess of all separately billable procedures. Medical Decision Making Differential Diagnosis ICH, concussion, skull fracture, syncope, dysrhythmia, stent colic, dehydration, hip fracture, pneumonia Medical Records Attestation: I reviewed the patient's medical records. The patient was recently discharged from the hospital for renal colic. She had a stent placed on the left side by urology. Home Medications Current Medication List: was personally reviewed by me Laboratory Data Attestation: I reviewed the patient's lab results. Result diagrams: 12/11/19 12:46 12/11/19 12:46 Lab Results 12/11/19 12/11/19 12/11/19 Range/Units 12:46 12:46 12:46 WBC 8.90 (4.8-10.8) K/uL RBC 2.98 L (4.2-5.4) M/uL Hgb 9.8 L (12.0-16.0) g/dL Hct 30.3 L (37-47) % MCV 101.7 H (80-100) fL MCH 32.9 (25-34) pg MCHC 32.3 (32-36) g/dL RDW Std Deviation 56.2 H (36.4-46.3) fL RDW Coeff of Chiara 15.2 H (11.5-14.5) % Plt Count 356 (130-400) K/uL MPV 9.2 (7.4-10.4) fL Immature Gran % (Auto) 0.3 % Neut % (Auto) 70.1 % Lymph % (Auto) 17.9 % [place] % (Auto) 10.8 % Eos % (Auto) 0.6 % Baso % (Auto) 0.3 % Immature Gran # (Auto) 0.03 H (0.00-0.02) K/uL Neut # (Auto) 6.24 (1.4-6.5) K/uL Lymph # (Auto) 1.59 (1.2-3.4) K/uL [place] # (Auto) 0.96 H (0.11-0.59) K/uL Eos # (Auto) 0.05 (0-0.5) K/uL Baso # (Auto) 0.03 (0-0.2) K/uL PT (9.0-12.0) Seconds INR (0.9-1.1) APTT (21.0-31.0) Seconds PTT Ratio Sodium 131 L (136-145) mmol/L Potassium 4.4 (3.5-5.1) mmol/L Chloride 98 (98-107) mmol/L Carbon Dioxide 30 (21-32) mmol/L Anion Gap 3.0 (3-11) BUN 23 H (7-18) mg/dl Creatinine 0.81 (0.6-1.2) mg/dl Est Cr Clr Drug Dosing 36.9 ml/min Est GFR ( Amer) 75.7 Est GFR (Non-Af Amer) 65.3 BUN/Creatinine Ratio 28.3 H (10-20) Glucose 108 H (70-99) mg/dl Calcium 8.6 (8.5-10.1) mg/dl Magnesium 1.4 L (1.8-2.4) mg/dl Total Bilirubin 0.5 (0.2-1) mg/dl AST 15 (15-37) U/L ALT 14 (12-78) U/L Alkaline Phosphatase 55 (45-117) U/L Troponin I 0.019 (0-0.045) ng/ml Total Protein 5.7 L (6.4-8.2) gm/dl Albumin 3.0 L (3.4-5.0) gm/dl Globulin 2.7 (2.5-4.0) gm/dl Albumin/Globulin Ratio 1.1 (0.9-2) TSH 4.020 (0.300-4.500) uIu/ml 12/11/19 Range/Units 12:46 WBC (4.8-10.8) K/uL RBC (4.2-5.4) M/uL Hgb (12.0-16.0) g/dL Hct (37-47) % MCV (80-100) fL MCH (25-34) pg MCHC (32-36) g/dL RDW Std Deviation (36.4-46.3) fL RDW Coeff of Chiara (11.5-14.5) % Plt Count (130-400) K/uL MPV (7.4-10.4) fL Immature Gran % (Auto) % Neut % (Auto) % Lymph % (Auto) % [place] % (Auto) % Eos % (Auto) % Baso % (Auto) % Immature Gran # (Auto) (0.00-0.02) K/uL Neut # (Auto) (1.4-6.5) K/uL Lymph # (Auto) (1.2-3.4) K/uL Durham # (Auto) (0.11-0.59) K/uL Eos # (Auto) (0-0.5) K/uL Baso # (Auto) (0-0.2) K/uL PT 11.9 (9.0-12.0) Seconds INR 1.1 (0.9-1.1) APTT 25.4 (21.0-31.0) Seconds PTT Ratio 0.9 Sodium (136-145) mmol/L Potassium (3.5-5.1) mmol/L Chloride (98-107) mmol/L Carbon Dioxide (21-32) mmol/L Anion Gap (3-11) BUN (7-18) mg/dl Creatinine (0.6-1.2) mg/dl Est Cr Clr Drug Dosing ml/min Est GFR ( Amer) Est GFR (Non-Af Amer) BUN/Creatinine Ratio (10-20) Glucose (70-99) mg/dl Calcium (8.5-10.1) mg/dl Magnesium (1.8-2.4) mg/dl Total Bilirubin (0.2-1) mg/dl AST (15-37) U/L ALT (12-78) U/L Alkaline Phosphatase (45-117) U/L Troponin I (0-0.045) ng/ml Total Protein (6.4-8.2) gm/dl Albumin (3.4-5.0) gm/dl Globulin (2.5-4.0) gm/dl Albumin/Globulin Ratio (0.9-2) TSH (0.300-4.500) uIu/ml ECG Data Attestation: I personally reviewed and interpreted this ECG as follows: Indication: + syncope and + weakness Rate (beats per minute): 79 Rhythm: + normal sinus ECG Intervals/blocks: no First degree AV block ECG ST segments: no ST elevation ECG Findings: no PVCs Blood Pressure Blood Pressure Findings: Elevated blood pressure Blood Pressure Disposition: Referred to patients primary care provider Head Trauma GCS Score: 15 MDM Narrative I did evaluate the patient as noted above. I did obtain history from the patient as well as her son who is at the bedside. The patient is presenting after falling. She stated she felt weak and fell to the ground. She is not sure she passed out but she does remember hitting her head on the ground. She complains of right hip pain as well as flank pain. She was recently admitted for renal colic and a stent was placed on the left side by urology. She is neurologically intact. She does appear dehydrated. IV access was established. The patient was placed on a continuous surveillance system monitor. Cardiac monitoring: Indication: Syncope Rate and rhythm: Normal sinus rhythm rate of 85 The patient had an O2 saturation of 86%. She states she is not short of breath and denies any history of lung disease. She was placed on supplemental oxygen with a nasal cannula. I also treated her with IV morphine and Zofran for pain as well as normal saline IV. I did order and personally review the patient's 12-lead EKG as described above. No acute ischemia is noted. I did order and personally reviewed the images of the patient's chest/hip/pelvis/shoulder x-rays as described above. There is no infiltrate on chest x-ray. She has no fractures or dislocations on musculoskeletal exam. No fractures were noted. I did order and review the patient's blood work as noted in the electronic medical record. Her CBC shows no leukocytosis. She does have a hemoglobin of 9.8 which is stable. She also has chronic hyponatremia with a sodium of 131. Troponin is negative. I did order a CT of the head and cervical spine. I did review the images myself as well as the radiology report as described above. There is no evidence of intracranial hemorrhage or cervical fracture. I did reassess the patient. I did discuss the test results with the patient. She continues to be hypoxemic here and requiring oxygen. Given her recent hospital stay I was concerned about the possibility of pulmonary embolism. I did recommend CT scanning of the chest. I did order a CT angiogram of the chest. The patient does have bilateral multiple pulmonary emboli. I did discuss the results with the patient and her son. I did start the patient on IV heparin with a bolus and drip. The patient was given additional IV morphine for pain. I did discuss case with the hospitalist and case repairer. Impression & Plan Pulmonary emboli, Syncope, Anemia, Hypoxemia, Chronic hyponatremia, Acute head injury, Injury of hip, right, Injury of right shoulder Discharge Plan Visit Data Chief Complaint: Fall Stated Complaint: fall/ head pain ED Provider: Anibal Rodriguez Discharge Problem: Pulmonary emboli, Syncope, Anemia, Hypoxemia, Chronic hyponatremia, Acute head injury, Injury of hip, right, Injury of right shoulder Patient Disposition: Being Evaluated by Hospitalist Forms Stand Alone Forms: My [facility] Prescriptions Prescriptions: No Action tamsulosin 0.4 mg capsule 0.4 mg PO HS Qty: 30 RF: 3 oxybutynin chloride 5 mg tablet 5 mg PO BID PRN (Reason: bladder spasms) Qty: 30 RF: 0 phenazopyridine [Pyridium] 200 mg tablet 200 mg PO TID PRN (Reason: pain) 30 Days Qty: 30 RF: 0 tramadol [Ultram] 50 mg tablet 50 mg PO Q8H PRN (Reason: pain) Qty: 10 RF: 0 polyethylene glycol 3350 [Miralax] 17 gram Powder In Packet 17 g PO QAM PRN (Reason: Constipation) RF: 0 melatonin 2.5 mg/10 mL Liquid 5 mg PO HS RF: 0 lisinopril 20 mg Tablet 20 mg PO QAM RF: 0 Centrum Silver Women 8 mg iron-400 mcg-300 mcg Tablet 1 tab PO QAM RF: 0 prednisone 10 mg tablet 5 mg PO QAM RF: 0 atorvastatin 20 mg tablet 20 mg PO QAM RF: 0 duloxetine [Cymbalta] 20 mg capsule,delayed release(DR/EC) 20 mg PO QAM RF: 0 cholecalciferol (vitamin D3) [Vitamin D3] 50 mcg (2,000 unit) Capsule 50 mcg PO QAM RF: 0 acetaminophen [Tylenol Extra Strength] 500 mg Tablet 500 mg PO Q6H PRN (Reason: Pain) RF: 0 fluconazole 100 mg Tablet 100 mg PO DAILY Qty: 12 RF: 0 ketorolac 10 mg tablet 10 mg PO Q6 PRN (Reason: Pain) RF: 0 Referrals Referrals: Ben Schmidt [Primary Care Provider] - Discharge Problem: Pulmonary emboli Qualifiers: Pulmonary embolism type: other Chronicity: acute Acute cor pulmonale presence: unspecified Qualified Code(s): I26.99 - Other pulmonary embolism without acute cor pulmonale Syncope Qualifiers: Syncope type: unspecified Qualified Code(s): R55 - Syncope and collapse Anemia Qualifiers: Anemia type: unspecified type Qualified Code(s): D64.9 - Anemia, unspecified Acute head injury Qualifiers: Encounter type: initial encounter Qualified Code(s): S09.90XA - Unspecified injury of head, initial encounter Injury of hip, right Qualifiers: Encounter type: initial encounter Qualified Code(s): S79.911A - Unspecified injury of right hip, initial encounter Injury of right shoulder Qualifiers: Encounter type: initial encounter Qualified Code(s): S49.91XA - Unspecified injury of right shoulder and upper arm, initial encounter
[2019-12-11 13:07] LABS: Basophils # (auto) 0.03 K/uL (0-0.2); Basophils % (auto) 0.3 %; Eosinophils # (auto) 0.05 K/uL (0-0.5); Eosinophils % (auto) 0.6 %; Hematocrit (blood only) 30.3 % (37-47); Hemoglobin 9.8 g/dL (12.0-16.0); Immature Granulocytes # (auto) 0.03 K/uL (0.00-0.02); Immature Granulocytes % (auto) 0.3 %; Lymphocytes # (auto) 1.59 K/uL (1.2-3.4); Lymphocytes % (auto) 17.9 %; Mean Corpuscular Hemoglobin 32.9 pg (25-34); Mean Corpuscular Hgb Conc 32.3 g/dL (32-36); Mean Corpuscular Volume 101.7 fL (80-100); Mean Platelet Volume 9.2 fL (7.4-10.4); Monocytes # (auto) 0.96 K/uL (0.11-0.59); Monocytes % (auto) 10.8 %; Neutrophils # (auto) 6.24 K/uL (1.4-6.5); Neutrophils % (auto) 70.1 %; Platelet Count 356 K/uL (130-400); RDW Coefficient of Variation 15.2 % (11.5-14.5); RDW Standard Deviation 56.2 fL (36.4-46.3); Red Blood Count 2.98 M/uL (4.2-5.4)
[2019-12-11 13:17] LABS: INR 1.1 (0.9-1.1); Partial Thromboplastin Ratio 0.9; Partial Thromboplastin Time 25.4 Seconds (21.0-31.0); Prothrombin Time 11.9 Seconds (9.0-12.0)
[2019-12-11 13:32] LABS: BUN Creatinine Ratio 28.3 (10-20); Calcium 8.6 mg/dl (8.5-10.1); Creatinine Clr Calc Pharmacy 36.9 ml/min; Est GFR (African American) 75.7; Est GFR (Non-African American) 65.3; Potassium 4.4 mmol/L (3.5-5.1)
[2019-12-11 13:35] LABS: Albumin Globulin Ratio 1.1 (0.9-2); Bilirubin,Total 0.5 mg/dl (0.2-1); Globulin 2.7 gm/dl (2.5-4.0); Total Protein 5.7 gm/dl (6.4-8.2)
[2019-12-11 13:41] LABS: Magnesium 1.4 mg/dl (1.8-2.4); Thyroid Stimulating Hormone 4.02 uIu/ml (0.300-4.500); Troponin I 0.019 ng/ml (0-0.045)
--- NOTE | 2019-12-11 13:49 | CT Scan Report ---
CT head/brain wo con CT DOSE: 1022.29 mGy.cm HISTORY: Trauma. Mental status change. fall eal for injury TECHNIQUE: Multiaxial CT images of the head were performed without the use of intravenous contrast. A dose lowering technique was utilized adhering to the principles of ALARA. Comparison: 09/13/2019 Findings: The paranasal sinuses and mastoid air cells are clear. The calvarium and skull base are int act. The ventricles and sulci are within normal limits. There is no mass, hematoma, midline shift, or acute infarct. Impression: No acute intracranial abnormality. Age-related changes of mild atrophy as well as chronic small vesse l change. ACT 112: Negative or not required by law. The above report was generated using voice recognition software. It may contain grammatical, syntax or spelling errors. Electronically signed by: Peter Santillan M.D. 12/11/2019 1:47 PM
--- NOTE | 2019-12-11 13:51 | CT Scan Report ---
CT cervical spine wo con CT DOSE: HISTORY: Trauma fall eal for injury TECHNIQUE: Multiaxial CT images of the cervical spine were performed and reformatted in the sagittal and coronal plane without the use of contrast. A dose lowering technique was utilized adhering to th e principles of ALARA. COMPARISON: None. FINDINGS: No fractures. No subluxation. Prevertebral soft tissues and the C1-C2 interval are intact. No pneumothorax. There are considerable degenerative disc change findings from C2 through C7. Posterior bulging disc c omponents are present at virtually all levels. Muscle spasm with reversal of normal cervical curvature. IMPRESSION: 1. No acute bony abnormality. 2. Considerable degenerative disc change. 3. Muscle spasm with reversal of the normal cervical curvature. ACT 112: Negative or not required by law. The above report was generated using voice recognition software. It may contain grammatical, syntax or spelling errors. Electronically signed by: Peter Santillan M.D. 12/11/2019 1:49 PM
--- NOTE | 2019-12-11 14:14 | XRay Report ---
XR chest 1V portable CLINICAL HISTORY: fall eval for injury trauma. Pain. COMPARISON STUDY: 11/25/2019 FINDINGS: Lungs are clear. Calcification of the mitral annulus is unchanged. There is a component of stable emphysematous change. There are degenerative changes of the right as w ell as left shoulder. IMPRESSION: Chronic and mild emphysematous change. No acute process. ACT 112: Negative or not required by law. The above report was generated using voice recognition software. It may contain grammatical, syntax or spelling errors. Electronically signed by: Peter Santillan M.D. 12/11/2019 2:12 PM
--- NOTE | 2019-12-11 14:15 | XRay Report ---
XR shoulder RT min 2V routine CLINICAL HISTORY: fall eval for injury trauma. Pain. COMPARISON: None. DISCUSSION: Considerable degenerative change. Narrowing of the acromiohumeral space. No evidence for fracture or dislocation. There is no evidence for soft tissue swelling. IMPRESSION: 1. No acute bony abnormality. 2. Considerable degenerative change. ACT 112: Negative or not required by law. The above report was generated using voice recognition software. It may contain grammatical, syntax or spelling errors. Electronically signed by: Peter Santillan M.D. 12/11/2019 2:13 PM
--- NOTE | 2019-12-11 14:16 | XRay Report ---
XR hip RT min 2V CLINICAL HISTORY: fall eval for injury trauma. Pain. COMPARISON: 11/12/2019 DISCUSSION: Total right hip arthroplasty in good position. Could contact between the metallic prosthe tic and underlying bone. No evidence for acetabular protrusion. There is no evidence for soft tissue swelling. IMPRESSION: 1. No acute process.. 2. Degenerative and postoperative change. ACT 112: Negative or not required by law. The above report was generated using voice recognition software. It may contain grammatical, syntax or spelling errors. Electronically signed by: Peter Santillan M.D. 12/11/2019 2:15 PM
--- NOTE | 2019-12-11 14:18 | XRay Report ---
XR KUB/Abdomen 1 view CLINICAL HISTORY: pain eval stent flank pain COMPARISON STUDY: 10/28/2019 FINDINGS: Left ureteral stent in good position. The renal shadows are secured by overlying bowel cont ent. Nonobstructive bowel pattern. Moderate increase in colonic fecal load. IMPRESSION: 1. Left ureteral stent in good position. 2. The kidneys are obscured by overlying bowel content. 3. Moderate increase in colonic fecal load consistent with a component of fecal stasis. ACT 112: Negative or not required by law. The above report was generated using voice recognition software. It may contain grammatical, syntax or spelling errors. Electronically signed by: Peter Santillan M.D. 12/11/2019 2:16 PM
[2019-12-11] MEDS ORDERED: MAGNESIUM SULFATE / D5W 1 GM/100 ML BAG IV ONE (14:24)
[2019-12-11] MEDS ORDERED: OPTIRAY 320 125ml IV PRN (14:44)
--- NOTE | 2019-12-11 14:59 | CT Scan Report ---
CT angio chest PE protocol CT DOSE: 266.61 mGy.cm HISTORY: Dyspnea hypoxic eval for PE TECHNIQUE: Multiaxial CT images of the chest were performed following the intravenous administration of contrast to evaluate the pulmonary arteries. Maximal intensity projection images were also obtaine d. A dose lowering technique was utilized adhering to the principles of ALARA. COMPARISON STUDY: None. FINDINGS: Mild atherosclerotic change thoracic aorta. Evaluation of the pulmonary arterial vasculature demonstrates filling defects of the proximal right u pper lobe pulmonary arteries and to a much lesser extent left upper lobe pulmonary arteries. There are second and third order filling defects of the right as well as left lower lobe pulmonary ar terial distributions. Evaluation of lung parenchyma demonstrates minimal pleural reactive change of the posterior aspects o f the right as well as left lower lobe regions. There is minimal platelike atelectasis at the lung ba ses. Evaluation of the thoracic spine shows a mild compression deformity superior endplate of T11 felt to be nonacute. There are significant degenerative disc changes throughout. IMPRESSION: 1. The study is positive for bilateral pulmonary emboli. 2. No evidence for a main or central pulmonary embolus. 3. Lungs otherwise appear clear with minimal platelike atelectasis at the lung bases. ACT 112: Negative or not required by law. The above report was generated using voice recognition software. It may contain grammatical, syntax or spelling errors. Electronically signed by: Peter Santillan M.D. 12/11/2019 2:58 PM
[2019-12-11] MEDS ORDERED: HEPARIN SOD (PORCINE) 1000 UNIT/ML 10 ML VIAL ONE (15:30)
[2019-12-11] MEDS ORDERED: HEPARIN IV BOLUS 4,000 UNITS in SYRINGE 0 ML IV ONE (15:30)
[2019-12-11] MEDS ORDERED: MoRPHine SULFATE 2 MG/ML CARP IV STA (15:35)
[2019-12-11] MEDS: HEPARIN SODIUM/DEXTROSE 25,000 UNITS/500 ML BAG IV SCH (15:39)
--- NOTE | 2019-12-11 16:46 | History & Physical Report ---
Date of Service December 11, 2019 Assessment & Plan (1) Pulmonary emboli: Likely related to recent health status and subsequent immobility LE US pending Started on heparin in the ED, will continue Will need case management assistance in cost determination of PO options Hypoxic on presentation to 84% (2) Anemia: Hb 9.8 on admission, slightly lower than last admission Hemoccult pending Monitor given need for heparin MCV elevated, B12/folate WNL recently (3) UTI (urinary tract infection): Yeast UTI last admission, it is unclear what the tx plan is but assuming 7 days to be completed as outpt (4) Fall: Likely related to deconditioning given current health status Possibly related to hypoxia from PE PT/OT pending Son expresses concerns about pt remaining alone in home CT head/c-spine, XR R shoulder/hip neg for acute (5) Hypomagnesemia: Replaced in ED, monitor (6) Kidney stone on left side: s/p lithotripsy and L ureteral stent exchange on 12/07 continue home meds for pain (7) Hyperlipidemia: continue home meds (8) Anxiety: continue home meds (9) Depression: continue home meds (10) Rheumatoid arthritis: continue prednisone 5mg (11) Tobacco abuse: quit 09/14/19 (12) DVT prophylaxis: SCDs, heparin gtt (13) Constipation: Noted on KUB Likely related to medications MOM and monitor History of Present Illness Primary Care Provider: Ben Schmidt 89 y/o F who was brought to the ED s/p fall. Pt was d/c on 12/08 s/p L ureteral stent exchange and lithotripsy. Pt was admitted prior to this for R sided ureteral stent exchange on 11/23 as well. Pt states that she has continued to have b/l flank pain that is very intense. It has not improved s/p procedures. She is taking several different medications to help with this as well, and none of them are improving her pain. Her pain has remained b/l flank, L>R. She has occasional pain with urination, but not always. No blood in urine or stool. Pt did have some LE swelling a few days ago, but it has since resolved. Pt states she was walking and had a loss of balance that she could not regain. She did not trip or have any syncope/presyncope. She did hit her head on the floor after the fall, but it was not the main point of contact. She was able to call her son who came over to assist her. Son states they have concerns about pt continuing to live at home alone at this point, particularly given the level of pain she has. Pt has not been sleeping well either. She has had low PO intake due to loss of appetite related to her pain and also decreased ambulation related to her pain. She has been constipated. She has taken miralax in the past for this but has not tried this recently. Pt denies fever, SOB, chest pain, abd pain, n/v, LE pain. Pt did fall around the end of August as well, but no other falls until today. Allergies Allergy/AdvReac Type Severity Reaction Status Date / Time Sulfa (Sulfonamide Allergy Intermediate Rash Verified 12/11/19 13:04 Antibiotics) mirabegron [From Myrbetriq] AdvReac Intermediate hypertensio Verified 12/11/19 13:04 n nicotine AdvReac Mild PATCH-SKIN Verified 12/11/19 13:04 IRRITATION shrimp AdvReac Mild Photosensit Verified 12/11/19 13:04 ivity Home Medications Home Medications Medication Instructions Recorded Confirmed Type Centrum Silver Women 1 tab PO QAM 07/06/18 12/11/19 History atorvastatin 20 mg PO QAM 09/05/19 12/11/19 History cholecalciferol (vitamin D3) 50 mcg PO QAM 09/05/19 12/11/19 History [Vitamin D3] duloxetine [Cymbalta] 20 mg PO QAM 09/05/19 12/11/19 History prednisone 5 mg PO QAM 09/05/19 12/11/19 History melatonin 5 mg PO HS 09/28/19 12/11/19 History polyethylene glycol 3350 [Miralax] 17 g PO QAM PRN 09/28/19 12/11/19 History lisinopril 20 mg PO QAM 11/11/19 12/11/19 History acetaminophen [Tylenol Extra 500 mg PO Q6H PRN 11/12/19 12/11/19 History Strength] oxybutynin chloride 5 mg tablet 5 mg PO BID PRN #30 tab 12/01/19 12/11/19 Rx tamsulosin 0.4 mg capsule 0.4 mg PO HS #30 cap 12/01/19 12/11/19 Rx phenazopyridine 200 mg tablet 200 mg PO TID PRN 30 Days #30 tab 12/05/19 12/11/19 Rx tramadol 50 mg tablet 50 mg PO Q8H PRN #10 tab 12/05/19 12/11/19 Rx fluconazole 100 mg PO DAILY #12 tab 12/08/19 12/11/19 Rx ketorolac 10 mg PO Q6 PRN 12/11/19 12/11/19 History Past Med/Surg History Medical History Anemia Anxiety (Chronic) Depression (Chronic) Glaucoma (Chronic) Hearing deficit (Chronic) BL ROM[place] Hyperlipidemia (Chronic) Hyponatremia Kidney stones (Chronic) Osteoarthritis (Chronic) Rheumatoid arthritis (Chronic) Surgical History Hip fracture requiring operative repair History of cataract surgery (Resolved) left and right History of colonoscopy (Resolved) History of cystoscopy WITH STENT History of lithotripsy (Resolved) x 2 History of tooth extraction (Resolved) Nausea and vomiting after administration of anesthetic agent Status post cystoscopy with ureteral stent placement 10/28/2019 [facility] Family History Father Hypertension Other No pertinent family history in first degree relatives Social History (Updated 12/11/19 @ 16:56 by Yanely French DO) Preferred Language: Urdu Communication Ability: Effective Visual Impairment: No Limitations Mine Technician Required: No Beliefs That Will Affect Care: None marital status: / Current Living Situation: Alone Feels Safe at Home: Yes Smoking Status: Former smoker Tobacco Type: cigarettes ; Cigarettes Per Day: 20-40 ; Smoking End Date: 09/14/19 ; Second Hand Exposure: Yes ( WAS A SMOKER) ; Hx Alcohol Use: Yes Alcohol type: hard liquor Alcohol Intake Frequency Comment: occasional, rare Hx Substance Use: No Review of Systems Review of Systems: Pertinent positives and negatives reviewed in HPI--all others negative Physical Exam Constitutional: WD/WN, vitals as above Eyes: normal visual gurrola by confrontation and + anicteric sclerae Neck: normal visual inspection and trachea midline Respiratory: normal respiratory effort, lungs clear to auscultation Cardiovascular: Rate/Rhythm: regular rate and regular rhythm Gastrointestinal (Abdomen): Inspection/Auscultation: abdomen not distended Percussion/Palpation: abdomen soft; abdomen nontender Musculoskeletal: Head/Neck/Chest: normocephalic and head atraumatic negative for edema, peripheral pulses intact Skin: no rashes, warm and dry Neurologic: awake; not confused Speech / Cognition: normal speech Psychiatric: A+Ox3, euthymic affect Results & Data Results & Data ([facility]) Vital Signs (Past 12 Hours) Vital Signs Temp Pulse Pulse Resp BP BP Pulse Ox 12/11/19 16:30 82 20 160/84 H 93 12/11/19 15:51 82 18 184/86 H 93 12/11/19 15:00 78 20 199/83 H 94 12/11/19 12:43 80 80 18 178/92 H 92 12/11/19 12:24 36.6 C 85 18 175/83 H 86 L Diagnostic Findings CXR: neg for acute CTA: b/l PE CT head: neg for acute CT c-spine, R shoulder XR, R hip XR: neg for acute KUB: L ureteral stent in place, moderate fecal load ECG Change: no significant change Code Status & VTE Plan Code Status Full code, pt has a living will that states DNR/DNI if incapacitated VTE Prophylaxis Plan VTE Prophylaxis will be ordered: Yes PG Care Time/CCT Total # of Minutes Spent Total Time Spent with Patient: Total time spent is greater than 50% in coordination of care (as documented) at patient's floor/unit and/or counseling patient: Coding Level of Care Code 62644 Initial Inpt Care Lvl 3 Diagnoses Pulmonary emboli I26.99 Acute cor pulmonale presence: unspecified Chronicity: acute Pulmonary embolism type: other Anemia D64.9 UTI (urinary tract infection) N39.0 Fall W19.XXXA Hypomagnesemia E83.42 Kidney stone on left side N20.0 Hyperlipidemia E78.5 Hyperlipidemia type: unspecified Anxiety F41.9 Depression F33.9 Depression Type: major depressive disorder Major depression recurrence: recurrent Active/Remission status: remission status unspecified Rheumatoid arthritis M06.9 Rheumatoid arthritis location: unspecified site Rheumatoid factor presence: unspecified presence Tobacco abuse Z72.0 DVT prophylaxis Z29.9 Constipation K59.00 (1) Pulmonary emboli Acute cor pulmonale presence: unspecified Chronicity: acute Pulmonary embolism type: other Qualified Code(s): I26.99 - Other pulmonary embolism without acute cor pulmonale (2) Hyperlipidemia Hyperlipidemia type: unspecified Qualified Code(s): E78.5 - Hyperlipidemia, unspecified (3) Depression Depression Type: major depressive disorder Major depression recurrence: recurrent Active/Remission status: remission status unspecified Qualified Code(s): F33.9 - Major depressive disorder, recurrent, unspecified (4) Rheumatoid arthritis Rheumatoid arthritis location: unspecified site Rheumatoid factor presence: unspecified presence Qualified Code(s): M06.9 - Rheumatoid arthritis, unspecified
[2019-12-11] MEDS ORDERED: MAGNESIUM HYDROXIDE SUSP 30 ML UDC PO PRN (17:41)
[2019-12-11] MEDS ORDERED: POLYETHYLENE (MIRALAX) 17 GM PACK PO PRN (17:41)
[2019-12-11] MEDS ORDERED: ONDANSETRON INJ 2 MG/ML 2 ML VIAL IV PRN (17:41)
[2019-12-11] MEDS: TRAMADOL HCL 50 MG TABLET PO PRN (17:54)
[2019-12-11] MEDS ORDERED: MAGNESIUM HYDROXIDE SUSP 30 ML UDC PO ONE (18:00)
[2019-12-11] MEDS: ACETAMINOPHEN 500 MG TAB PO PRN (20:20)
[2019-12-11] MEDS: TAMSULOSIN HCL 0.4 MG CAP PO SCH (20:20)
[2019-12-11] MEDS: ZOLPIDEM TARTRATE 5 MG TAB PO PRN (20:20)
[2019-12-11 20:30] LABS: Appearance Urine Clear (Clear); Bacteria Urine Automated Negative (Negative); Bilirubin Urine Negative (Negative); Blood Urine 3+ (Negative); Color Urine Dark Yellow; Glucose Urine UA Negative (Negative); Ketones Urine Negative (Negative); Leukocyte Esterase Urine 2+ (Negative); Nitrite Urine Positive (Negative); Protein Urine 1+ (Negative); RBC Urine Automated >30 /hpf (0-4); Specific Gravity Urine 1.026 (1.000-1.030); Urobilinogen Urine Negative (Negative); WBC Urine Automated >30 /hpf (0-5)
[2019-12-11] MEDS ORDERED: NON-FORMULARY MEDICATION (Melatonin 5 MG) PO SCH (21:00)
--- NOTE | 2019-12-11 22:18 | Ultrasound Report ---
US venous doppler LE BI HISTORY: Chest pain. Dyspnea. PE COMPARISON STUDY: None. FINDINGS: There is normal compressibility, flow, and augmentation within the bilateral lower extremit y deep venous systems. IMPRESSION: No DVT within the right or left lower extremity. ACT 112: Negative or not required by law. The above report was generated using voice recognition software. It may contain grammatical, syntax or spelling errors. Electronically signed by: Peter Santillan M.D. 12/11/2019 10:16 PM
[2019-12-11] MEDS: KETOROLAC TROMETHAMINE 10 MG TABLET PO PRN (22:32)
[2019-12-11] MEDS: OXYBUTYNIN CHLORIDE 5 MG TAB PO PRN (22:36)
[2019-12-11 23:11] LABS: Partial Thromboplastin Ratio 2.1
[2019-12-11 23:27] LABS: Partial Thromboplastin Time 59.8 Seconds (21.0-31.0)
[2019-12-12] MEDS ORDERED: MoRPHine SULFATE 2 MG/ML CARP IV STA (01:14)
[2019-12-12] MEDS: ACETAMINOPHEN 500 MG TAB PO PRN ×3 (06:12→21:18)
[2019-12-12 06:25] LABS: Basophils # (auto) 0.04 K/uL (0-0.2); Basophils % (auto) 0.6 %; Eosinophils # (auto) 0.24 K/uL (0-0.5); Eosinophils % (auto) 3.6 %; Hematocrit (blood only) 27.9 % (37-47); Hemoglobin 9.1 g/dL (12.0-16.0); Immature Granulocytes # (auto) 0.02 K/uL (0.00-0.02); Immature Granulocytes % (auto) 0.3 %; Lymphocytes # (auto) 1.84 K/uL (1.2-3.4); Lymphocytes % (auto) 27.7 %; Mean Corpuscular Hgb Conc 32.6 g/dL (32-36); Mean Corpuscular Volume 101.1 fL (80-100); Monocytes # (auto) 0.73 K/uL (0.11-0.59); Neutrophils # (auto) 3.78 K/uL (1.4-6.5); Neutrophils % (auto) 56.8 %; Platelet Count 303 K/uL (130-400); RDW Coefficient of Variation 15.2 % (11.5-14.5); RDW Standard Deviation 55.5 fL (36.4-46.3); Red Blood Count 2.76 M/uL (4.2-5.4); White Blood Count 6.65 K/uL (4.8-10.8)
[2019-12-12 06:52] LABS: Partial Thromboplastin Time 55.2 Seconds (21.0-31.0)
[2019-12-12 06:53] LABS: BUN Creatinine Ratio 19.2 (10-20); Creatinine Clr Calc Pharmacy 35.2 ml/min; Est GFR (African American) 71.4; Est GFR (Non-African American) 61.6; Magnesium 1.7 mg/dl (1.8-2.4); Potassium 4.5 mmol/L (3.5-5.1)
[2019-12-12] MEDS: PHENAZOPYRIDINE HCL 200 MG TAB PO PRN (08:50)
[2019-12-12] MEDS: TRAMADOL HCL 50 MG TABLET PO PRN ×2 (08:50→19:12)
[2019-12-12] MEDS: CEROVITE ADV FORMULA TAB PO SCH (08:51)
[2019-12-12] MEDS: predniSONE 5 MG TAB PO SCH (08:51)
[2019-12-12] MEDS: DULOXETINE HCL 20 MG CAP PO SCH (08:51)
[2019-12-12] MEDS: lisinopriL 20 MG TAB PO SCH (08:51)
[2019-12-12] MEDS: ATORVASTATIN 20 MG TAB PO SCH (08:51)
[2019-12-12] MEDS: FLUCONAZOLE 100 MG TAB PO SCH (08:51)
[2019-12-12] MEDS: CHOLECALCIFEROL 1,000 UNITS 25 MCG TAB PO SCH (08:51)
[2019-12-12] MEDS: MAGNESIUM SULFATE / D5W 1 GM/100 ML BAG IV SCH ×2 (11:01→12:07)
--- NOTE | 2019-12-12 11:09 | Electrocardiogram Report ---
Test Reason : Blood Pressure : / mmHG Vent. Rate : 079 BPM Atrial Rate : 079 BPM P-R Int : 122 ms QRS Dur : 084 ms QT Int : 378 ms P-R-T Axes : 077 051 089 degrees QTc Int : 433 ms Normal sinus rhythm Possible Left atrial enlargement Nonspecific ST and T wave abnormality Abnormal ECG When compared with ECG of 07-DEC-2019 12:27, No significant change was found Confirmed by Surjit Basilio ([id number]) on 12/12/2019 11:09:39 AM Referred By: REFERRED SELF Confirmed By:Surjit Basilio
--- NOTE | 2019-12-12 11:23 | Electrocardiogram Report ---
Test Reason : Blood Pressure : / mmHG Vent. Rate : 080 BPM Atrial Rate : 080 BPM P-R Int : 114 ms QRS Dur : 080 ms QT Int : 374 ms P-R-T Axes : 047 022 103 degrees QTc Int : 431 ms Normal sinus rhythm Nonspecific ST and T wave abnormality Abnormal ECG When compared with ECG of 11-DEC-2019 12:43, (unconfirmed) T wave inversion more evident in Lateral leads Confirmed by Surjit Basilio ([id number]) on 12/12/2019 11:22:47 AM Referred By: REFERRED SELF Confirmed By:Surjit Basilio
[2019-12-12] MEDS: cefTRIAXone SODIUM 1,000 MG in DEXTROSE 5% 50 ML IV SCH (13:25)
[2019-12-12] MEDS: HEPARIN SODIUM/DEXTROSE 25,000 UNITS/500 ML BAG IV SCH (15:16)
--- NOTE | 2019-12-12 15:48 | Hospitalist Progress Note ---
Date of Service December 12, 2019 Assessment & Plan (1) Pulmonary emboli: Likely related to recent health status and subsequent immobility LE US shows no DVT in left or right leg continue heparin drip today, change to Xarelto tomorrow AM cost would be $47 a month (2) Anemia: Hb stable at 9.1 (3) UTI (urinary tract infection): Yeast UTI last admission, it is unclear what the tx plan is but assuming 7 days to be completed as outpt urine culture from 12/07 at time of procedure growing E coli, soriano sensitive start on Rocephin today due to weakness, diaphoresis, unresponsive episodes (4) Fall: Likely related to deconditioning given current health status Possibly related to hypoxia from PE PT/OT pending Son expresses concerns about pt remaining alone in home CT head/c-spine, XR R shoulder/hip neg for acute will likely need rehab, likely ready by mid to late week (5) Hypomagnesemia: Replaced in ED, monitor (6) Kidney stone on left side: s/p lithotripsy and L ureteral stent exchange on 12/07 continue home meds for pain d/w Dr. Erickson, can pull out stent on Thursday, want time for edema to go down (7) Hyperlipidemia: continue home meds (8) Anxiety: continue home meds (9) Depression: continue home meds (10) Rheumatoid arthritis: continue prednisone 5mg (11) Tobacco abuse: quit 09/14/19 (12) DVT prophylaxis: SCDs, heparin gtt (13) Constipation: Noted on KUB Likely related to medications MOM and monitor no BM today Admission and Anticipated Discharge Date Admission Date: December 11, 2019 Anticipated date of discharge: 12/15/19 Subjective patient with two episodes of decreased responsiveness today, both times she was up to use the toilet witnessed by the RN, I did not see these episodes she described them as if the patient froze and got stiff, did not responded but then came around reviewed the monitor, no arrhythmia at that time, BP was stable reviewed labs and chart, WBC normal, Hb stable, BUN and Cr stable, Na 131 reviewed culture results, urine from 12/07 at time of stent exchange grew out E coli that had not been treated she denies any chest pain, dyspnea with the PE she asked if she could go home tomorrow, explained that she was very weak, likely too weak to go home and may need some rehab updated her son over the phone via voicemail discussed with Dr. Dariusz Erickson, he would like the stent to remain in place until end of the week due to ureteral edema Review of Systems Review of Systems: All systems reviewed & are unremarkable except as noted in HPI & below Constitutional: + fatigue and + weakness; no fever Respiratory: no cough and no dyspnea Cardiovascular: no chest pain and no edema Gastrointestinal: + early satiety (poor appetite); no abdominal pain, no nausea, no vomiting, no constipation and no diarrhea/loose stools Genitourinary: + flank pain (spasms on left side); no dysuria Musculoskeletal: + muscle weakness; no back pain and no joint pain Physical Exam Constitutional: WD/WN, vitals as above + ill appearing and + diaphoretic; no acute distress Eyes: PERRL, conjunctivae normal, anicteric sclerae ENMT: external ear and nose normal, oropharynx normal Neck: trachea midline, no thyromegaly Respiratory: normal respiratory effort, lungs clear to auscultation Cardiovascular: RRR, no murmur, no edema Gastrointestinal (Abdomen): normal bowel sounds, soft, nontender, no hepatosplenomegaly Musculoskeletal: Head/Neck/Chest: normocephalic and head atraumatic Extremities: extremities normal to inspection and + abnormal strength (weakness in legs bilaterally); full ROM of extremities Skin: no rashes, warm and dry Neurologic: patellar DTR's 2+ bilat, sensation intact and PERRL, EOMI, accommodation nl, no face palsy, no dysarthria Psychiatric: A+Ox3, euthymic affect Lymphatic: no cervical or axillary lymphadenopathy Results & Data Results & Data ([facility]) Vital Signs (Past 12 Hours) Vital Signs Temp Pulse Resp BP BP Pulse Ox 12/12/19 15:21 36.9 C 88 19 127/69 92 12/12/19 12:20 88 122/58 L 12/12/19 11:16 37.1 C 80 18 135/65 92 12/12/19 07:39 36.7 C 86 19 120/56 L 92 Laboratory Results Laboratory Results - last 24 hr 12/11/19 12/11/19 12/12/19 20:07 22:38 06:13 WBC 6.65 RBC 2.76 L Hgb 9.1 L Hct 27.9 L MCV 101.1 H MCH 33.0 MCHC 32.6 RDW Std Deviation 55.5 H RDW Coeff of Chiara 15.2 H Plt Count 303 MPV 9.0 Immature Gran % (Auto) 0.3 Neut % (Auto) 56.8 Lymph % (Auto) 27.7 Forrest % (Auto) 11.0 Eos % (Auto) 3.6 Baso % (Auto) 0.6 Immature Gran # (Auto) 0.02 Neut # (Auto) 3.78 Lymph # (Auto) 1.84 Forrest # (Auto) 0.73 H Eos # (Auto) 0.24 Baso # (Auto) 0.04 APTT 59.8 H* PTT Ratio 2.1 Sodium Potassium Chloride Carbon Dioxide Anion Gap BUN Creatinine Est Cr Clr Drug Dosing Est GFR ( Amer) Est GFR (Non-Af Amer) BUN/Creatinine Ratio Glucose Calcium Phosphorus Magnesium Troponin I Urine Color Dark Yellow Urine Appearance Clear Urine pH 7.0 Ur Specific [place] 1.026 Urine Protein 1+ H Urine Glucose (UA) Negative Urine Ketones Negative Urine Blood 3+ H Urine Nitrite Positive A Urine Bilirubin Negative Urine Urobilinogen Negative Ur Leukocyte Esterase 2+ H Urine WBC (Auto) >30 H Urine RBC (Auto) >30 H U Hyaline Cast (Auto) 1-5 U Epithel Cells (Auto) 10-20 H Urine Bacteria (Auto) Negative 12/12/19 12/12/19 12/12/19 06:13 06:13 09:46 WBC RBC Hgb Hct MCV MCH MCHC RDW Std Deviation RDW Coeff of Chiara Plt Count MPV Immature Gran % (Auto) Neut % (Auto) Lymph % (Auto) Forrest % (Auto) Eos % (Auto) Baso % (Auto) Immature Gran # (Auto) Neut # (Auto) Lymph # (Auto) Forrest # (Auto) Eos # (Auto) Baso # (Auto) APTT 55.2 H* PTT Ratio 2.0 Sodium 131 L Potassium 4.5 Chloride 98 Carbon Dioxide 30 Anion Gap 3.0 BUN 16 Creatinine 0.85 Est Cr Clr Drug Dosing 35.2 Est GFR ( Amer) 71.4 Est GFR (Non-Af Amer) 61.6 BUN/Creatinine Ratio 19.2 Glucose 94 Calcium 8.0 L Phosphorus 3.0 Magnesium 1.7 L Troponin I 0.018 Urine Color Urine Appearance Urine pH Ur Specific [place] Urine Protein Urine Glucose (UA) Urine Ketones Urine Blood Urine Nitrite Urine Bilirubin Urine Urobilinogen Ur Leukocyte Esterase Urine WBC (Auto) Urine RBC (Auto) U Hyaline Cast (Auto) U Epithel Cells (Auto) Urine Bacteria (Auto) Medications Administered Current Inpatient Medications Acetaminophen (Tylenol) 500 mg PO Q6H PRN PRN Reason: Pain Stop: 01/10/20 17:40 Last Admin: 12/12/19 15:22 Dose: 500 mg Documented by: Atorvastatin Calcium (Lipitor) 20 mg PO [facility] Stop: 01/11/20 08:59 Last Admin: 12/12/19 08:51 Dose: 20 mg Documented by: Duloxetine HCl (Cymbalta) 20 mg PO [facility] Stop: 01/11/20 08:59 Last Admin: 12/12/19 08:51 Dose: 20 mg Documented by: Fluconazole (Diflucan) 100 mg PO DAILY [facility]; Protocol Stop: 12/20/19 08:59 Last Admin: 12/12/19 08:51 Dose: 100 mg Documented by: Heparin Sodium/Dextrose (Heparin Sodium/Dextrose) 25,000 units in 500 mls @ 18 mls/hr IV .Q24H [facility]; Protocol Stop: 01/10/20 15:14 Last Admin: 12/12/19 15:16 Dose: 900 units/hr, 18 mls/hr Documented by: Ceftriaxone Sodium 1,000 mg/ (Dextrose) 50 mls @ 100 mls/hr IV Q24H [facility] Stop: 12/22/19 12:59 Last Infusion: 12/12/19 14:50 Dose: Infused Documented by: Ioversol (Optiray 320 125ml) 119 ml IV ONCE PRN PRN Reason: Interaction Checking Stop: 12/15/19 14:43 Last Admin: 12/11/19 14:46 Dose: 119 ml Documented by: Ketorolac Tromethamine (Toradol) 10 mg PO Q6 PRN PRN Reason: Pain Stop: 12/16/19 17:40 Last Admin: 12/11/19 22:32 Dose: 10 mg Documented by: Lisinopril (Zestril) 20 mg PO [facility] Stop: 01/11/20 08:59 Last Admin: 12/12/19 08:51 Dose: 20 mg Documented by: Magnesium Hydroxide (Milk Of Magnesia) 30 ml PO Q12H PRN PRN Reason: Constipation Stop: 01/10/20 17:40 Multivitamins/Minerals (Multivitamin W/ Minerals Tab) 1 tab PO QAM [facility] Stop: 01/11/20 08:59 Last Admin: 12/12/19 08:51 Dose: 1 tab Documented by: Ondansetron HCl (Zofran) 4 mg IV Q6H PRN PRN Reason: Nausea Stop: 01/10/20 17:40 Oxybutynin Chloride (Ditropan) 5 mg PO BID PRN PRN Reason: bladder spasms Stop: 01/10/20 17:40 Last Admin: 12/11/19 22:36 Dose: 5 mg Documented by: Phenazopyridine HCl (Pyridium) 200 mg PO TID PRN PRN Reason: pain Stop: 01/10/20 17:40 Last Admin: 12/12/19 08:50 Dose: 200 mg Documented by: Polyethylene Glycol (Miralax Powder Packet) 17 gm PO QAM PRN PRN Reason: Constipation Stop: 01/10/20 17:40 Prednisone (Prednisone) 5 mg PO QAM [facility] Stop: 01/11/20 08:59 Last Admin: 12/12/19 08:51 Dose: 5 mg Documented by: Tamsulosin HCl (Flomax) 0.4 mg PO HS [facility] Stop: 01/10/20 20:59 Last Admin: 12/11/19 20:20 Dose: 0.4 mg Documented by: Tramadol HCl (Ultram) 50 mg PO Q8H PRN PRN Reason: pain Stop: 01/10/20 17:40 Last Admin: 12/12/19 08:50 Dose: 50 mg Documented by: Vitamin D (Vitamin D3) 2,000 units PO QAM [facility] Stop: 01/11/20 08:59 Last Admin: 12/12/19 08:51 Dose: 2,000 units Documented by: Zolpidem Tartrate (Ambien) 2.5 mg PO HS PRN PRN Reason: Sleep Stop: 01/10/20 19:53 Last Admin: 12/11/19 20:20 Dose: 2.5 mg Documented by: PG Care Time/CCT Total # of Minutes Spent Total Time Spent with Patient: Total time spent is greater than 50% in coordination of care (as documented) at patient's floor/unit and/or counseling patient: Coding Level of Care Code 75025 Subseq Hosp Care Lvl 3 Diagnoses Pulmonary emboli I26.99 Acute cor pulmonale presence: unspecified Chronicity: acute Pulmonary embolism type: other Anemia D64.9 UTI (urinary tract infection) N39.0 Fall W19.XXXA Hypomagnesemia E83.42 Kidney stone on left side N20.0 Hyperlipidemia E78.5 Hyperlipidemia type: unspecified Anxiety F41.9 Depression F33.9 Active/Remission status: remission status unspecified Depression Type: major depressive disorder Major depression recurrence: recurrent Rheumatoid arthritis M06.9 Rheumatoid arthritis location: unspecified site Rheumatoid factor presence: unspecified presence Tobacco abuse Z72.0 DVT prophylaxis Z29.9 Constipation K59.00 (1) Rheumatoid arthritis Rheumatoid arthritis location: unspecified site Rheumatoid factor presence: unspecified presence Qualified Code(s): M06.9 - Rheumatoid arthritis, unspecified (2) Depression Active/Remission status: remission status unspecified Depression Type: major depressive disorder Major depression recurrence: recurrent Qualified Code(s): F33.9 - Major depressive disorder, recurrent, unspecified (3) Hyperlipidemia Hyperlipidemia type: unspecified Qualified Code(s): E78.5 - Hyperlipidemia, unspecified (4) Pulmonary emboli Acute cor pulmonale presence: unspecified Chronicity: acute Pulmonary embolism type: other Qualified Code(s): I26.99 - Other pulmonary embolism without acute cor pulmonale
[2019-12-12] MEDS: TAMSULOSIN HCL 0.4 MG CAP PO SCH (20:55)
[2019-12-12] MEDS: ZOLPIDEM TARTRATE 5 MG TAB PO PRN (21:18)
[2019-12-12] MEDS: MoRPHine SULFATE 2 MG/ML CARP IV PRN (21:37)
[2019-12-13] MEDS: ACETAMINOPHEN 500 MG TAB PO PRN ×4 (00:25→23:17)
[2019-12-13] MEDS: MoRPHine SULFATE 2 MG/ML CARP IV PRN (03:08)
[2019-12-13] MEDS: KETOROLAC TROMETHAMINE 10 MG TABLET PO PRN ×2 (05:11→22:05)
[2019-12-13 06:14] LABS: Partial Thromboplastin Ratio 2.3
[2019-12-13 06:26] LABS: Partial Thromboplastin Time 63.2 Seconds (21.0-31.0)
[2019-12-13] MEDS: FLUCONAZOLE 100 MG TAB PO SCH (08:29)
[2019-12-13] MEDS: DULOXETINE HCL 20 MG CAP PO SCH (08:29)
[2019-12-13] MEDS: predniSONE 5 MG TAB PO SCH (08:29)
[2019-12-13] MEDS: lisinopriL 20 MG TAB PO SCH (08:29)
[2019-12-13] MEDS: CHOLECALCIFEROL 1,000 UNITS 25 MCG TAB PO SCH (08:29)
[2019-12-13] MEDS: CEROVITE ADV FORMULA TAB PO SCH (08:29)
[2019-12-13] MEDS: RIVAROXABAN 15 MG TAB PO SCH ×2 (08:29→21:00)
[2019-12-13] MEDS: ATORVASTATIN 20 MG TAB PO SCH (08:29)
[2019-12-13] MEDS ORDERED: bisacodyL 10 MG SUPP PR STA (09:12)
[2019-12-13] MEDS: TRAMADOL HCL 50 MG TABLET PO PRN ×2 (11:13→19:31)
[2019-12-13] MEDS: cefTRIAXone SODIUM 1,000 MG in DEXTROSE 5% 50 ML IV SCH (13:25)
[2019-12-13] MEDS ORDERED: LACTULOSE SYRUP 20 GM/30 ML UDC PO ONE (15:19)
--- NOTE | 2019-12-13 15:21 | Hospitalist Progress Note ---
Date of Service December 13, 2019 Assessment & Plan (1) Pulmonary emboli: Likely related to recent health status and subsequent immobility LE US shows no DVT in left or right leg treated initially with heparin drip, changed to Xarelto 15mg BID this morning plan for 15mg BID x 3 weeks then 20mg daily (2) Anemia: Hb stable at 9.1 on 12/11, repeat tomorrow (3) UTI (urinary tract infection): Yeast UTI last admission, it is unclear what the tx plan is but assuming 7 days to be completed as outpt urine culture from 12/07 at time of procedure growing E coli, soriano sensitive also grew out Enterococcus today, sensitive to Ampicillin will change to Ampicillin IV while here, plan for Augmentin on discharge to treat both infections (4) Fall: Likely related to deconditioning given current health status Possibly related to hypoxia from PE PT/OT pending - she is refusing at this time despite strong encouragement from myself and staff Son expresses concerns about pt remaining alone in home CT head/c-spine, XR R shoulder/hip neg for acute will likely need rehab, likely ready by late week (5) Hypomagnesemia: Replaced in ED, monitor stable (6) Kidney stone on left side: s/p lithotripsy and L ureteral stent exchange on 12/07 continue home meds for pain d/w Dr. Erickson, can pull out stent on Friday 12/15, want time for edema to go down (7) Hyperlipidemia: continue home meds (8) Anxiety: continue home meds (9) Depression: continue home meds (10) Rheumatoid arthritis: continue prednisone 5mg (11) Tobacco abuse: quit 09/14/19 (12) DVT prophylaxis: SCDs, heparin gtt (13) Constipation: Noted on KUB Likely related to medications no BM despite MOM and suppository will give Lactulose TID until she moves her bowels Admission and Anticipated Discharge Date Admission Date: December 11, 2019 Anticipated date of discharge: 12/16/19 Subjective patient has a little more energy today, more appetite she c/o constipation, cannot recall the last time she moved her bowels, says it hurts asked RN to place suppository, she said that the patient is not impacted, no stool in rectum abdomen is soft, positive bowel sounds on exam no labs today she is refusing physical and occupational therapy, told her that she needs to try, likely will need rehab Review of Systems Review of Systems: All systems reviewed & are unremarkable except as noted in HPI & below Constitutional: + fatigue and + weakness; no fever Respiratory: no cough and no dyspnea Cardiovascular: no chest pain, no palpitations and no edema Gastrointestinal: + constipation; no abdominal pain, no nausea, no vomiting, no diarrhea/loose stools and no blood in stools Genitourinary: + flank pain (left sided cramping pain); no dysuria Musculoskeletal: + muscle weakness; no back pain and no joint pain Physical Exam Constitutional: WD/WN, vitals as above no acute distress Eyes: PERRL, conjunctivae normal, anicteric sclerae ENMT: external ear and nose normal, oropharynx normal Neck: trachea midline, no thyromegaly Respiratory: normal respiratory effort, lungs clear to auscultation Cardiovascular: RRR, no murmur, no edema Gastrointestinal (Abdomen): normal bowel sounds, soft, nontender, no hepatosplenomegaly Musculoskeletal: Head/Neck/Chest: normocephalic and head atraumatic Extremities: extremities normal to inspection and + abnormal strength (weakness in legs bilaterally); full ROM of extremities Skin: no rashes, warm and dry Neurologic: patellar DTR's 2+ bilat, sensation intact and PERRL, EOMI, accommodation nl, no face palsy, no dysarthria Psychiatric: A+Ox3, euthymic affect Lymphatic: no cervical or axillary lymphadenopathy Results & Data Results & Data ([facility]) Vital Signs (Past 12 Hours) Vital Signs Temp Pulse Resp BP BP Pulse Ox 12/13/19 11:12 36.9 C 86 18 133/66 92 12/13/19 07:43 36.9 C 83 20 127/63 93 12/13/19 04:58 84 17 162/72 H 93 Laboratory Results Laboratory Results - last 24 hr 12/13/19 05:22 APTT 63.2 H* PTT Ratio 2.3 Medications Administered Current Inpatient Medications Acetaminophen (Tylenol) 500 mg PO Q6H PRN PRN Reason: Pain Stop: 01/10/20 17:40 Last Admin: 12/13/19 07:25 Dose: 500 mg Documented by: Atorvastatin Calcium (Lipitor) 20 mg PO QAM [facility] Stop: 01/11/20 08:59 Last Admin: 12/13/19 08:29 Dose: 20 mg Documented by: Duloxetine HCl (Cymbalta) 20 mg PO QAM [facility] Stop: 01/11/20 08:59 Last Admin: 12/13/19 08:29 Dose: 20 mg Documented by: Fluconazole (Diflucan) 100 mg PO DAILY [facility]; Protocol Stop: 12/20/19 08:59 Last Admin: 12/13/19 08:29 Dose: 100 mg Documented by: Ceftriaxone Sodium 1,000 mg/ (Dextrose) 50 mls @ 100 mls/hr IV Q24H [facility] Stop: 12/22/19 12:59 Last Infusion: 12/13/19 13:54 Dose: Infused Documented by: Ioversol (Optiray 320 125ml) 119 ml IV ONCE PRN PRN Reason: Interaction Checking Stop: 12/15/19 14:43 Last Admin: 12/11/19 14:46 Dose: 119 ml Documented by: Ketorolac Tromethamine (Toradol) 10 mg PO Q6 PRN PRN Reason: Pain Stop: 12/16/19 17:40 Last Admin: 12/13/19 05:11 Dose: 10 mg Documented by: Lactulose (Chronulac) 20 gm PO TID [facility] Stop: 01/12/20 20:59 Lisinopril (Zestril) 20 mg PO [facility] Stop: 01/11/20 08:59 Last Admin: 12/13/19 08:29 Dose: 20 mg Documented by: Magnesium Hydroxide (Milk Of Magnesia) 30 ml PO Q12H PRN PRN Reason: Constipation Stop: 01/10/20 17:40 Morphine Sulfate (Morphine Sulfate) 2 mg IV Q4H PRN PRN Reason: Pain Stop: 12/26/19 21:29 Last Admin: 12/13/19 03:08 Dose: 2 mg Documented by: Multivitamins/Minerals (Multivitamin W/ Minerals Tab) 1 tab PO [facility] Stop: 01/11/20 08:59 Last Admin: 12/13/19 08:29 Dose: 1 tab Documented by: Ondansetron HCl (Zofran) 4 mg IV Q6H PRN PRN Reason: Nausea Stop: 01/10/20 17:40 Oxybutynin Chloride (Ditropan) 5 mg PO BID PRN PRN Reason: bladder spasms Stop: 01/10/20 17:40 Last Admin: 12/11/19 22:36 Dose: 5 mg Documented by: Phenazopyridine HCl (Pyridium) 200 mg PO TID PRN PRN Reason: pain Stop: 01/10/20 17:40 Last Admin: 12/12/19 08:50 Dose: 200 mg Documented by: Polyethylene Glycol (Miralax Powder Packet) 17 gm PO QAM PRN PRN Reason: Constipation Stop: 01/10/20 17:40 Last Admin: 12/13/19 08:34 Dose: 17 gm Documented by: Prednisone (Prednisone) 5 mg PO QAM [facility] Stop: 01/11/20 08:59 Last Admin: 12/13/19 08:29 Dose: 5 mg Documented by: Rivaroxaban (Xarelto) 15 mg PO BID [facility] Stop: 01/02/20 21:01 Last Admin: 12/13/19 08:29 Dose: 15 mg Documented by: Tamsulosin HCl (Flomax) 0.4 mg PO HS [facility] Stop: 01/10/20 20:59 Last Admin: 12/12/19 20:55 Dose: 0.4 mg Documented by: Tramadol HCl (Ultram) 50 mg PO Q8H PRN PRN Reason: pain Stop: 01/10/20 17:40 Last Admin: 12/13/19 11:13 Dose: 50 mg Documented by: Vitamin D (Vitamin D3) 2,000 units PO QAM [facility] Stop: 01/11/20 08:59 Last Admin: 12/13/19 08:29 Dose: 2,000 units Documented by: Zolpidem Tartrate (Ambien) 2.5 mg PO HS PRN PRN Reason: Sleep Stop: 01/10/20 19:53 Last Admin: 12/12/19 21:18 Dose: 2.5 mg Documented by: PG Care Time/CCT Total # of Minutes Spent Total Time Spent with Patient: Total time spent is greater than 50% in coordination of care (as documented) at patient's floor/unit and/or counseling patient: Coding Level of Care Code 84121 Subseq Hosp Care Lvl 3 Diagnoses Pulmonary emboli I26.99 Acute cor pulmonale presence: unspecified Chronicity: acute Pulmonary embolism type: other Anemia D64.9 UTI (urinary tract infection) N39.0 Fall W19.XXXA Hypomagnesemia E83.42 Kidney stone on left side N20.0 Hyperlipidemia E78.5 Hyperlipidemia type: unspecified Anxiety F41.9 Depression F33.9 Depression Type: major depressive disorder Major depression recurrence: recurrent Active/Remission status: remission status unspecified Rheumatoid arthritis M06.9 Rheumatoid arthritis location: unspecified site Rheumatoid factor presence: unspecified presence Tobacco abuse Z72.0 DVT prophylaxis Z29.9 Constipation K59.00 (1) Pulmonary emboli Acute cor pulmonale presence: unspecified Chronicity: acute Pulmonary embolism type: other Qualified Code(s): I26.99 - Other pulmonary embolism without acute cor pulmonale (2) Hyperlipidemia Hyperlipidemia type: unspecified Qualified Code(s): E78.5 - Hyperlipidemia, unspecified (3) Depression Depression Type: major depressive disorder Major depression recurrence: recurrent Active/Remission status: remission status unspecified Qualified Code(s): F33.9 - Major depressive disorder, recurrent, unspecified (4) Rheumatoid arthritis Rheumatoid arthritis location: unspecified site Rheumatoid factor presence: unspecified presence Qualified Code(s): M06.9 - Rheumatoid arthritis, unspecified
[2019-12-13] MEDS: AMPICILLIN 1,000 MG in SODIUM CHLOR 0.9% AD-VAN 50 ML IV SCH ×2 (16:05→21:46)
[2019-12-13] MEDS: ZOLPIDEM TARTRATE 5 MG TAB PO PRN (20:59)
[2019-12-13] MEDS: TAMSULOSIN HCL 0.4 MG CAP PO SCH (21:00)
[2019-12-13] MEDS ORDERED: LACTULOSE SYRUP 20 GM/30 ML UDC PO SCH (21:00)
[2019-12-13] MEDS: PHENAZOPYRIDINE HCL 200 MG TAB PO PRN (21:00)
[2019-12-13] MEDS: OXYBUTYNIN CHLORIDE 5 MG TAB PO PRN (21:00)
[2019-12-14] MEDS: AMPICILLIN 1,000 MG in SODIUM CHLOR 0.9% AD-VAN 50 ML IV SCH ×4 (03:52→21:24)
[2019-12-14] MEDS: TRAMADOL HCL 50 MG TABLET PO PRN ×3 (03:52→14:41)
[2019-12-14 05:20] LABS: Hemoglobin 8.4 g/dL (12.0-16.0); Mean Corpuscular Hemoglobin 32.6 pg (25-34); Mean Corpuscular Hgb Conc 32.3 g/dL (32-36); Mean Corpuscular Volume 100.8 fL (80-100); Mean Platelet Volume 9.1 fL (7.4-10.4); Platelet Count 339 K/uL (130-400); RDW Coefficient of Variation 15.3 % (11.5-14.5); RDW Standard Deviation 55.8 fL (36.4-46.3); Red Blood Count 2.58 M/uL (4.2-5.4); White Blood Count 9.22 K/uL (4.8-10.8)
[2019-12-14 05:32] LABS: Partial Thromboplastin Ratio 1.2; Partial Thromboplastin Time 34.6 Seconds (21.0-31.0)
[2019-12-14 05:43] LABS: BUN Creatinine Ratio 17.7 (10-20); Calcium 8.2 mg/dl (8.5-10.1); Creatinine Clr Calc Pharmacy 39.9 ml/min; Est GFR (African American) 83.1; Est GFR (Non-African American) 71.7; Magnesium 1.8 mg/dl (1.8-2.4); Potassium 4.5 mmol/L (3.5-5.1)
[2019-12-14] MEDS: SODIUM CHLORIDE 1 GM TABLET PO SCH ×2 (07:55→19:27)
[2019-12-14] MEDS: ATORVASTATIN 20 MG TAB PO SCH (07:56)
[2019-12-14] MEDS: lisinopriL 20 MG TAB PO SCH (07:56)
[2019-12-14] MEDS: DULOXETINE HCL 20 MG CAP PO SCH (07:56)
[2019-12-14] MEDS: CEROVITE ADV FORMULA TAB PO SCH (07:56)
[2019-12-14] MEDS: predniSONE 5 MG TAB PO SCH (07:56)
[2019-12-14] MEDS: FLUCONAZOLE 100 MG TAB PO SCH (07:57)
[2019-12-14] MEDS: KETOROLAC TROMETHAMINE 10 MG TABLET PO PRN ×2 (07:57→21:24)
[2019-12-14] MEDS: CHOLECALCIFEROL 1,000 UNITS 25 MCG TAB PO SCH (07:58)
[2019-12-14] MEDS: RIVAROXABAN 15 MG TAB PO SCH ×2 (07:58→19:26)
[2019-12-14] MEDS: OXYBUTYNIN CHLORIDE 5 MG TAB PO PRN ×2 (07:58→21:24)
--- NOTE | 2019-12-14 09:34 | Hospitalist Progress Note ---
Date of Service December 14, 2019 Assessment & Plan (1) Pulmonary emboli: Likely related to recent health status and subsequent immobility LE US shows no DVT in left or right leg treated initially with heparin drip, changed to Xarelto 15mg BID on 12/12 plan for 15mg BID x 3 weeks then 20mg daily (2) Anemia: Hb down a little at 8.4, will repeat tomorrow (3) UTI (urinary tract infection): Itzel albicans on 12/07 culture, placed on Diflucan, will need 7 days, last day would be 12/14 urine culture from 12/07 at time of procedure growing E coli, soriano sensitive on 12/11 also grew out Enterococcus 12/12, sensitive to Ampicillin will change to Ampicillin IV while here, plan for Augmentin on discharge to treat both infections would need Augmentin through 12/18 (4) Fall: Likely related to deconditioning given current health status Possibly related to hypoxia from PE PT/OT pending - she plans to comply today Son expresses concerns about pt remaining alone in home CT head/c-spine, XR R shoulder/hip neg for acute will likely need rehab, son looking into [facility] (5) Hypomagnesemia: Replaced in ED, monitor stable (6) Kidney stone on left side: s/p lithotripsy and L ureteral stent exchange on 12/07 continue home meds for pain d/w Dr. Erickson, can pull out stent on Friday 12/15, want time for edema to go down (7) Hyperlipidemia: continue home meds (8) Anxiety: continue home meds try some Klonopin HS for sleep (9) Depression: continue home meds (10) Rheumatoid arthritis: continue prednisone 5mg (11) Tobacco abuse: quit 09/14/19 (12) DVT prophylaxis: SCDs, heparin gtt (13) Constipation: Noted on KUB resolved on 12/12, had several BM after Lactulose Admission and Anticipated Discharge Date Admission Date: December 11, 2019 Anticipated date of discharge: 12/16/19 Subjective patient sitting up in chair, feeling much better today, more energy she was able to stand up with her walker and ambulate to the chair told her that she NEEDS to participate with therapy today, work on getting her to rehab later this week no events on monitor, will downgrade reviewed labs, Hb down slightly, Na is 129, Cr stable again, reviewed final urine culture with the Itzel, Enterococcus, E coli will call her son to update him she had several BM last night after lactulose, she feels much better today ate a little breakfast, encouraged her to eat more for lunch, no restrictions Review of Systems Review of Systems: All systems reviewed & are unremarkable except as noted in HPI & below Constitutional: + fatigue and + weakness; no fever, no chills and no sweats Respiratory: no cough and no dyspnea Cardiovascular: no chest pain and no edema Gastrointestinal: no abdominal pain, no nausea, no vomiting, no constipation and no diarrhea/loose stools Musculoskeletal: + muscle weakness Physical Exam Constitutional: WD/WN, vitals as above no acute distress Eyes: PERRL, conjunctivae normal, anicteric sclerae ENMT: external ear and nose normal, oropharynx normal Neck: trachea midline, no thyromegaly Respiratory: normal respiratory effort, lungs clear to auscultation Cardiovascular: RRR, no murmur, no edema Gastrointestinal (Abdomen): normal bowel sounds, soft, nontender, no hepatosplenomegaly Musculoskeletal: Head/Neck/Chest: normocephalic and head atraumatic Extremities: extremities normal to inspection and + abnormal strength (weakness in legs bilaterally); full ROM of extremities Skin: no rashes, warm and dry Neurologic: patellar DTR's 2+ bilat, sensation intact and PERRL, EOMI, accommodation nl, no face palsy, no dysarthria Psychiatric: A+Ox3, euthymic affect Lymphatic: no cervical or axillary lymphadenopathy Results & Data Results & Data ([facility]) Vital Signs (Past 12 Hours) Vital Signs Temp Pulse Pulse Resp BP Pulse Ox 12/14/19 08:54 75 12/14/19 07:36 36.7 C 87 18 140/75 93 12/14/19 04:02 36.6 C 77 18 152/67 H 93 12/14/19 00:15 83 12/13/19 23:16 37.0 C 80 17 166/75 H 93 Laboratory Results Laboratory Results - last 24 hr 12/14/19 12/14/19 12/14/19 04:57 04:57 04:57 WBC 9.22 RBC 2.58 L Hgb 8.4 L Hct 26.0 L MCV 100.8 H MCH 32.6 MCHC 32.3 RDW Std Deviation 55.8 H RDW Coeff of Chiara 15.3 H Plt Count 339 MPV 9.1 APTT 34.6 H PTT Ratio 1.2 Sodium 129 L Potassium 4.5 Chloride 97 L Carbon Dioxide 31 Anion Gap 1.0 L BUN 13 Creatinine 0.75 Est Cr Clr Drug Dosing 39.9 Est GFR ( Amer) 83.1 Est GFR (Non-Af Amer) 71.7 BUN/Creatinine Ratio 17.7 Glucose 95 Calcium 8.2 L Magnesium 1.8 Medications Administered Current Inpatient Medications Acetaminophen (Tylenol) 500 mg PO Q6H PRN PRN Reason: Pain Stop: 01/10/20 17:40 Last Admin: 12/13/19 23:17 Dose: 500 mg Documented by: Atorvastatin Calcium (Lipitor) 20 mg PO [facility] Stop: 01/11/20 08:59 Last Admin: 12/14/19 07:56 Dose: 20 mg Documented by: Clonazepam (Klonopin) 0.25 mg PO HS PRN PRN Reason: Insomnia Stop: 01/13/20 09:24 Duloxetine HCl (Cymbalta) 20 mg PO [facility] Stop: 01/11/20 08:59 Last Admin: 12/14/19 07:56 Dose: 20 mg Documented by: Fluconazole (Diflucan) 100 mg PO DAILY [facility]; Protocol Stop: 12/20/19 08:59 Last Admin: 12/14/19 07:57 Dose: 100 mg Documented by: Ampicillin Sodium 1,000 mg/ (Sodium Chloride) 50 mls @ 100 mls/hr IV Q6H [facility] Stop: 12/23/19 15:59 Last Infusion: 12/14/19 04:23 Dose: Infused Documented by: Ioversol (Optiray 320 125ml) 119 ml IV ONCE PRN PRN Reason: Interaction Checking Stop: 12/15/19 14:43 Last Admin: 12/11/19 14:46 Dose: 119 ml Documented by: Ketorolac Tromethamine (Toradol) 10 mg PO Q6 PRN PRN Reason: Pain Stop: 12/16/19 17:40 Last Admin: 12/14/19 07:57 Dose: 10 mg Documented by: Lisinopril (Zestril) 20 mg PO [facility] Stop: 01/11/20 08:59 Last Admin: 12/14/19 07:56 Dose: 20 mg Documented by: Magnesium Hydroxide (Milk Of Magnesia) 30 ml PO Q12H PRN PRN Reason: Constipation Stop: 01/10/20 17:40 Multivitamins/Minerals (Multivitamin W/ Minerals Tab) [facility] Stop: 01/11/20 08:59 Last Admin: 12/14/19 07:56 Dose: 1 tab Documented by: Ondansetron HCl (Zofran) 4 mg IV Q6H PRN PRN Reason: Nausea Stop: 01/10/20 17:40 Oxybutynin Chloride (Ditropan) 5 mg PO BID PRN PRN Reason: bladder spasms Stop: 01/10/20 17:40 Last Admin: 12/14/19 07:58 Dose: 5 mg Documented by: Phenazopyridine HCl (Pyridium) 200 mg PO TID PRN PRN Reason: pain Stop: 01/10/20 17:40 Last Admin: 12/13/19 21:00 Dose: 200 mg Documented by: Polyethylene Glycol (Miralax Powder Packet) 17 gm PO QAM PRN PRN Reason: Constipation Stop: 01/10/20 17:40 Last Admin: 12/13/19 08:34 Dose: 17 gm Documented by: Prednisone (Prednisone) 5 mg PO [facility] Stop: 01/11/20 08:59 Last Admin: 12/14/19 07:56 Dose: 5 mg Documented by: Rivaroxaban (Xarelto) 15 mg PO BID [facility] Stop: 01/02/20 21:01 Last Admin: 12/14/19 07:58 Dose: 15 mg Documented by: Sodium Chloride (Sodium Chloride) 1 gm PO BID [facility] Stop: 01/13/20 08:59 Last Admin: 12/14/19 07:55 Dose: 1 gm Documented by: Tamsulosin HCl (Flomax) 0.4 mg PO HS [facility] Stop: 01/10/20 20:59 Last Admin: 12/13/19 21:00 Dose: 0.4 mg Documented by: Tramadol HCl (Ultram) 50 mg PO Q8H PRN PRN Reason: pain Stop: 01/10/20 17:40 Last Admin: 12/14/19 07:57 Dose: 50 mg Documented by: Vitamin D (Vitamin D3) 2,000 units [facility] [place] Stop: 01/11/20 08:59 Last Admin: 12/14/19 07:58 Dose: 2,000 units Documented by: Zolpidem Tartrate (Ambien) 2.5 mg PO HS PRN PRN Reason: Sleep Stop: 01/10/20 19:53 Last Admin: 12/13/19 20:59 Dose: 2.5 mg Documented by: PG Care Time/CCT Total # of Minutes Spent Total Time Spent with Patient: Total time spent is greater than 50% in coordination of care (as documented) at patient's floor/unit and/or counseling patient: Coding Level of Care Code 47235 Subseq Hosp Care Lvl 3 Diagnoses Pulmonary emboli I26.99 Acute cor pulmonale presence: unspecified Chronicity: acute Pulmonary embolism type: other Anemia D64.9 UTI (urinary tract infection) N39.0 Fall W19.XXXA Hypomagnesemia E83.42 Kidney stone on left side N20.0 Hyperlipidemia E78.5 Hyperlipidemia type: unspecified Anxiety F41.9 Depression F33.9 Depression Type: major depressive disorder Major depression recurrence: recurrent Active/Remission status: remission status unspecified Rheumatoid arthritis M06.9 Rheumatoid arthritis location: unspecified site Rheumatoid factor presence: unspecified presence Tobacco abuse Z72.0 DVT prophylaxis Z29.9 Constipation K59.00 (1) Pulmonary emboli Acute cor pulmonale presence: unspecified Chronicity: acute Pulmonary embolism type: other Qualified Code(s): I26.99 - Other pulmonary embolism without acute cor pulmonale (2) Hyperlipidemia Hyperlipidemia type: unspecified Qualified Code(s): E78.5 - Hyperlipidemia, unspecified (3) Depression Depression Type: major depressive disorder Major depression recurrence: re current Active/Remission status: remission status unspecified Qualified Code(s): F33.9 - Major depressive disorder, recurrent, unspecified (4) Rheumatoid arthritis Rheumatoid arthritis location: unspecified site Rheumatoid factor presence: unspecified presence Qualified Code(s): M06.9 - Rheumatoid arthritis, unspecified
[2019-12-14] MEDS: ACETAMINOPHEN 500 MG TAB PO PRN ×2 (15:50→22:01)
[2019-12-14] MEDS: TAMSULOSIN HCL 0.4 MG CAP PO SCH (19:27)
[2019-12-14] MEDS: clonazePAM 0.25 MG TAB PO PRN (21:24)
[2019-12-15] MEDS: TRAMADOL HCL 50 MG TABLET PO PRN ×2 (02:17→09:19)
[2019-12-15] MEDS: AMPICILLIN 1,000 MG in SODIUM CHLOR 0.9% AD-VAN 50 ML IV SCH ×4 (04:51→21:20)
[2019-12-15 06:11] LABS: Hematocrit (blood only) 26.5 % (37-47); Hemoglobin 8.6 g/dL (12.0-16.0); Mean Corpuscular Hgb Conc 32.5 g/dL (32-36); Mean Corpuscular Volume 101.5 fL (80-100); Mean Platelet Volume 8.9 fL (7.4-10.4); Platelet Count 327 K/uL (130-400); RDW Coefficient of Variation 15.8 % (11.5-14.5); RDW Standard Deviation 57.4 fL (36.4-46.3); Red Blood Count 2.61 M/uL (4.2-5.4); White Blood Count 7.35 K/uL (4.8-10.8)
[2019-12-15] MEDS: ACETAMINOPHEN 500 MG TAB PO PRN ×2 (06:34→20:19)
[2019-12-15 07:08] LABS: BUN Creatinine Ratio 20.6 (10-20); Calcium 8.8 mg/dl (8.5-10.1); Creatinine Clr Calc Pharmacy 34.8 ml/min; Est GFR (African American) 70.4; Est GFR (Non-African American) 60.7; Potassium 4.9 mmol/L (3.5-5.1)
[2019-12-15] MEDS: FLUCONAZOLE 100 MG TAB PO SCH (08:45)
[2019-12-15] MEDS: lisinopriL 20 MG TAB PO SCH (08:45)
[2019-12-15] MEDS: PHENAZOPYRIDINE HCL 200 MG TAB PO PRN (08:45)
[2019-12-15] MEDS: predniSONE 5 MG TAB PO SCH (08:45)
[2019-12-15] MEDS: DULOXETINE HCL 20 MG CAP PO SCH (08:45)
[2019-12-15] MEDS: CHOLECALCIFEROL 1,000 UNITS 25 MCG TAB PO SCH (08:45)
[2019-12-15] MEDS: SODIUM CHLORIDE 1 GM TABLET PO SCH ×2 (08:46→19:45)
[2019-12-15] MEDS: ATORVASTATIN 20 MG TAB PO SCH (08:46)
[2019-12-15] MEDS: CEROVITE ADV FORMULA TAB PO SCH (08:46)
[2019-12-15] MEDS: RIVAROXABAN 15 MG TAB PO SCH ×2 (09:13→19:44)
[2019-12-15] MEDS: KETOROLAC TROMETHAMINE 10 MG TABLET PO PRN ×2 (13:30→21:07)
[2019-12-15] MEDS: TAMSULOSIN HCL 0.4 MG CAP PO SCH (19:45)
[2019-12-15] MEDS: clonazePAM 0.25 MG TAB PO PRN (21:14)
--- NOTE | 2019-12-15 23:13 | Hospitalist Progress Note ---
Date of Service December 15, 2019 Assessment & Plan (1) Pulmonary emboli: Likely related to recent health status and subsequent immobility LE US shows no DVT in left or right leg treated initially with heparin drip, changed to Xarelto 15mg BID on 12/12 plan for 15mg BID x 3 weeks then 20mg daily (2) Anemia: Hb stable at 8.6 (3) UTI (urinary tract infection): Itzel albicans on 12/07 culture, placed on Diflucan, will need 7 days, last day would be 12/14, today urine culture from 12/07 at time of procedure growing E coli, soriano sensitive on 12/11 also grew out Enterococcus 12/12, sensitive to Ampicillin will change to Ampicillin IV while here, plan for Augmentin on discharge to treat both infections would need Augmentin through 12/18 WBC is normal, no fever (4) Fall: Likely related to deconditioning given current health status Possibly related to hypoxia from PE PT/OT pending - she plans to comply today Son expresses concerns about pt remaining alone in home CT head/c-spine, XR R shoulder/hip neg for acute will likely need rehab, plan for [place] tomorrow (5) Hypomagnesemia: Replaced in ED, monitor stable (6) Kidney stone on left side: s/p lithotripsy and L ureteral stent exchange on 12/07 continue home meds for pain d/w Dr. Erickson, can pull out stent after at least 6 days was giving her a great deal of discomfort, cramps pulled the stent on 12/14, she immediately felt better (7) Hyperlipidemia: continue home meds (8) Anxiety: continue home meds try some Klonopin HS for sleep (9) Depression: continue home meds (10) Rheumatoid arthritis: continue prednisone 5mg (11) Tobacco abuse: quit 09/14/19 (12) DVT prophylaxis: SCDs, heparin gtt (13) Constipation: Noted on KUB resolved on 12/12, had several BM after Lactulose Admission and Anticipated Discharge Date Admission Date: December 11, 2019 Anticipated date of discharge: 12/16/19 Subjective patient with pain and hematuria again this morning she c/o that she just did not feel well asked RN to pull the ureteral stent re-visited her in the afternoon, she said she felt so much better, like a different person no further pain, still with some hematuria labs showed WBC of 7k, Hb 8.6, Na 133 and Cr of 0.86 Review of Systems Review of Systems: All systems reviewed & are unremarkable except as noted in HPI & below Constitutional: no fever, no chills and no sweats Respiratory: no cough and no dyspnea Cardiovascular: no chest pain and no edema Gastrointestinal: + abdominal pain (resolved after pulling ureteral stent); no nausea, no vomiting, no constipation and no diarrhea/loose stools Genitourinary: + hematuria; no dysuria and no difficulty urinating Physical Exam Constitutional: WD/WN, vitals as above no acute distress Eyes: PERRL, conjunctivae normal, anicteric sclerae ENMT: external ear and nose normal, oropharynx normal Neck: trachea midline, no thyromegaly Respiratory: normal respiratory effort, lungs clear to auscultation Cardiovascular: RRR, no murmur, no edema Gastrointestinal (Abdomen): normal bowel sounds, soft, nontender, no hepatosplenomegaly Musculoskeletal: Head/Neck/Chest: normocephalic and head atraumatic Extremities: extremities normal to inspection and + abnormal strength (weakness in legs bilaterally); full ROM of extremities Skin: no rashes, warm and dry Neurologic: patellar DTR's 2+ bilat, sensation intact and PERRL, EOMI, accommodation nl, no face palsy, no dysarthria Psychiatric: A+Ox3, euthymic affect Lymphatic: no cervical or axillary lymphadenopathy Results & Data Results & Data ([facility]) Vital Signs (Past 12 Hours) Vital Signs Temp Pulse Resp BP Pulse Ox 12/15/19 15:22 36.5 C 82 16 177/64 H 90 Laboratory Results Laboratory Results - last 24 hr 12/15/19 12/15/19 05:57 05:57 WBC 7.35 RBC 2.61 L Hgb 8.6 L Hct 26.5 L MCV 101.5 H MCH 33.0 MCHC 32.5 RDW Std Deviation 57.4 H RDW Coeff of Chiara 15.8 H Plt Count 327 MPV 8.9 Sodium 133 L Potassium 4.9 Chloride 99 Carbon Dioxide 30 Anion Gap 3.0 BUN 18 Creatinine 0.86 Est Cr Clr Drug Dosing 34.8 Est GFR ( Amer) 70.4 Est GFR (Non-Af Amer) 60.7 BUN/Creatinine Ratio 20.6 H Glucose 99 Calcium 8.8 Medications Administered Current Inpatient Medications Acetaminophen (Tylenol) 500 mg PO Q6H PRN PRN Reason: Pain Stop: 01/10/20 17:40 Last Admin: 12/15/19 20:19 Dose: 500 mg Documented by: Atorvastatin Calcium (Lipitor) 20 mg PO [facility] Stop: 01/11/20 08:59 Last Admin: 12/15/19 08:46 Dose: 20 mg Documented by: Clonazepam (Klonopin) 0.25 mg PO HS PRN PRN Reason: Insomnia Stop: 01/13/20 09:24 Last Admin: 12/15/19 21:14 Dose: 0.25 mg Documented by: Duloxetine HCl (Cymbalta) 20 mg PO [facility] Stop: 01/11/20 08:59 Last Admin: 12/15/19 08:45 Dose: 20 mg Documented by: Fluconazole (Diflucan) 100 mg PO DAILY [facility]; Protocol Stop: 12/20/19 08:59 Last Admin: 12/15/19 08:45 Dose: 100 mg Documented by: Ampicillin Sodium 1,000 mg/ (Sodium Chloride) 50 mls @ 100 mls/hr IV Q6H [facility] Stop: 12/23/19 15:59 Last Infusion: 12/15/19 21:56 Dose: Infused Documented by: Ketorolac Tromethamine (Toradol) 10 mg PO Q6 PRN PRN Reason: Pain Stop: 12/16/19 17:40 Last Admin: 12/15/19 21:07 Dose: 10 mg Documented by: Lisinopril (Zestril) 20 mg PO [facility] Stop: 01/11/20 08:59 Last Admin: 12/15/19 08:45 Dose: 20 mg Documented by: Magnesium Hydroxide (Milk Of Magnesia) 30 ml PO Q12H PRN PRN Reason: Constipation Stop: 01/10/20 17:40 Multivitamins/Minerals (Multivitamin W/ Minerals Tab) 1 tab PO [facility] Stop: 01/11/20 08:59 Last Admin: 12/15/19 08:46 Dose: 1 tab Documented by: Ondansetron HCl (Zofran) 4 mg IV Q6H PRN PRN Reason: Nausea Stop: 01/10/20 17:40 Oxybutynin Chloride (Ditropan) 5 mg PO BID PRN PRN Reason: bladder spasms Stop: 01/10/20 17:40 Last Admin: 12/14/19 21:24 Dose: 5 mg Documented by: Phenazopyridine HCl (Pyridium) 200 mg PO TID PRN PRN Reason: pain Stop: 01/10/20 17:40 Last Admin: 12/15/19 08:45 Dose: 200 mg Documented by: Polyethylene Glycol (Miralax Powder Packet) 17 gm PO QAM PRN PRN Reason: Constipation Stop: 01/10/20 17:40 Last Admin: 12/13/19 08:34 Dose: 17 gm Documented by: Prednisone (Prednisone) 5 mg PO QAM [facility] Stop: 01/11/20 08:59 Last Admin: 12/15/19 08:45 Dose: 5 mg Documented by: Rivaroxaban (Xarelto) 15 mg PO BID [facility] Stop: 01/02/20 21:01 Last Admin: 12/15/19 19:44 Dose: Not Given Documented by: Sodium Chloride (Sodium Chloride) 1 gm PO BID [facility] Stop: 01/13/20 08:59 Last Admin: 12/15/19 19:45 Dose: 1 gm Documented by: Tamsulosin HCl (Flomax) 0.4 mg PO HS [facility] Stop: 01/10/20 20:59 Last Admin: 12/15/19 19:45 Dose: 0.4 mg Documented by: Tramadol HCl (Ultram) 50 mg PO Q8H PRN PRN Reason: pain Stop: 01/10/20 17:40 Last Admin: 12/15/19 09:19 Dose: 50 mg Documented by: Vitamin D (Vitamin D3) 2,000 units PO QAM [facility] Stop: 01/11/20 08:59 Last Admin: 12/15/19 08:45 Dose: 2,000 units Documented by: PG Care Time/CCT Total # of Minutes Spent Total Time Spent with Patient: Total time spent is greater than 50% in coordination of care (as documented) at patient's floor/unit and/or counseling patient: Coding Level of Care Code 63488 Subseq Hosp Care Lvl 2 Diagnoses Pulmonary emboli I26.99 Acute cor pulmonale presence: unspecified Chronicity: acute Pulmonary embolism type: other Anemia D64.9 UTI (urinary tract infection) N39.0 Fall W19.XXXA Hypomagnesemia E83.42 Kidney stone on left side N20.0 Hyperlipidemia E78.5 Hyperlipidemia type: unspecified Anxiety F41.9 Depression F33.9 Depression Type: major depressive disorder Major depression recurrence: recurrent Active/Remission status: remission status unspecified Rheumatoid arthritis M06.9 Rheumatoid arthritis location: unspecified site Rheumatoid factor presence: unspecified presence Tobacco abuse Z72.0 DVT prophylaxis Z29.9 Constipation K59.00 (1) Pulmonary emboli Acute cor pulmonale presence: unspecified Chronicity: acute Pulmonary embolism type: other Qualified Code(s): I26.99 - Other pulmonary embolism without acute cor pulmonale (2) Hyperlipidemia Hyperlipidemia type: unspecified Qualified Code(s): E78.5 - Hyperlipidemia, unspecified (3) Depression Depression Type: major depressive disorder Major depression recurrence: recurrent Active/Remission status: remission status unspecified Qualified Code(s): F33.9 - Major depressive disorder, recurrent, unspecified (4) Rheumatoid arthritis Rheumatoid arthritis location: unspecified site Rheumatoid factor presence: unspecified presence Qualified Code(s): M06.9 - Rheumatoid arthritis, unspecified
[2019-12-16] MEDS ORDERED: HydrALAZINE HCL 20 MG/ML VIAL IV PRN (02:28)
[2019-12-16] MEDS: AMPICILLIN 1,000 MG in SODIUM CHLOR 0.9% AD-VAN 50 ML IV SCH ×3 (02:51→16:27)
[2019-12-16] MEDS: TRAMADOL HCL 50 MG TABLET PO PRN ×2 (04:14→11:05)
[2019-12-16 08:29] LABS: Hematocrit (blood only) 28.6 % (37-47); Hemoglobin 9.4 g/dL (12.0-16.0); Mean Corpuscular Hemoglobin 33.3 pg (25-34); Mean Corpuscular Hgb Conc 32.9 g/dL (32-36); Mean Corpuscular Volume 101.4 fL (80-100); Mean Platelet Volume 8.7 fL (7.4-10.4); Platelet Count 335 K/uL (130-400); RDW Coefficient of Variation 16.3 % (11.5-14.5); RDW Standard Deviation 59.1 fL (36.4-46.3); Red Blood Count 2.82 M/uL (4.2-5.4); White Blood Count 8.32 K/uL (4.8-10.8)
[2019-12-16] MEDS: CEROVITE ADV FORMULA TAB PO SCH (08:29)
[2019-12-16] MEDS: ATORVASTATIN 20 MG TAB PO SCH (08:29)
[2019-12-16] MEDS: SODIUM CHLORIDE 1 GM TABLET PO SCH (08:30)
[2019-12-16] MEDS: predniSONE 5 MG TAB PO SCH (08:31)
[2019-12-16] MEDS: FLUCONAZOLE 100 MG TAB PO SCH (08:31)
[2019-12-16] MEDS: RIVAROXABAN 15 MG TAB PO SCH (08:31)
[2019-12-16] MEDS: CHOLECALCIFEROL 1,000 UNITS 25 MCG TAB PO SCH (08:31)
[2019-12-16] MEDS: DULOXETINE HCL 20 MG CAP PO SCH (08:32)
[2019-12-16] MEDS: lisinopriL 20 MG TAB PO SCH (08:32)
[2019-12-16 08:54] LABS: BUN Creatinine Ratio 20.3 (10-20); Calcium 8.6 mg/dl (8.5-10.1); Creatinine Clr Calc Pharmacy 36.9 ml/min; Est GFR (African American) 75.7; Est GFR (Non-African American) 65.3; Potassium 4.3 mmol/L (3.5-5.1)
--- NOTE | 2019-12-16 15:19 | Discharge Summary ---
Date of Service December 16, 2019 Admission HPI Per Admitting Provider 89 y/o F who was brought to the ED s/p fall. Pt was d/c on 12/08 s/p L ureteral stent exchange and lithotripsy. Pt was admitted prior to this for R sided ureteral stent exchange on 11/23 as well. Pt states that she has continued to have b/l flank pain that is very intense. It has not improved s/p procedures. She is taking several different medications to help with this as well, and none of them are improving her pain. Her pain has remained b/l flank, L>R. She has occasional pain with urination, but not always. No blood in urine or stool. Pt did have some LE swelling a few days ago, but it has since resolved. Pt states she was walking and had a loss of balance that she could not regain. She did not trip or have any syncope/presyncope. She did hit her head on the floor after the fall, but it was not the main point of contact. She was able to call her son who came over to assist her. Son states they have concerns about pt continuing to live at home alone at this point, particularly given the level of pain she has. Pt has not been sleeping well either. She has had low PO intake due to loss of appetite related to her pain and also decreased ambulation related to her pain. She has been constipated. She has taken miralax in the past for this but has not tried this recently. Pt denies fever, SOB, chest pain, abd pain, n/v, LE pain. Pt did fall around the end of August as well, but no other falls until today. Principal Diagnosis Pulmonary embolism Discharge Exam Constitutional WD/WN, vitals as above no acute distress Eyes PERRL, conjunctivae normal, anicteric sclerae ENMT external ear and nose normal, oropharynx normal Neck trachea midline, no thyromegaly Respiratory normal respiratory effort, lungs clear to auscultation Cardiovascular RRR, no murmur, no edema Gastrointestinal (Abdomen) normal bowel sounds, soft, nontender, no hepatosplenomegaly Musculoskeletal Head/Neck/Chest: normocephalic and head atraumatic Extremities: extremities normal to inspection and + abnormal strength (weakness in legs bilaterally); full ROM of extremities Skin no rashes, warm and dry Neurologic patellar DTR's 2+ bilat, sensation intact and PERRL, EOMI, accommodation nl, no face palsy, no dysarthria Psychiatric A+Ox3, euthymic affect Lymphatic no cervical or axillary lymphadenopathy Discharge Data Allergies Allergy/AdvReac Type Severity Reaction Status Date / Time Sulfa (Sulfonamide Allergy Intermediate Rash Verified 12/11/19 13:04 Antibiotics) mirabegron [From Myrbetriq] AdvReac Intermediate hypertensio Verified 12/11/19 13:04 n nicotine AdvReac Mild PATCH-SKIN Verified 12/11/19 13:04 IRRITATION shrimp AdvReac Mild Photosensit Verified 12/11/19 13:04 ivity Consultations 12/11/19 15:10 ED Decision to Admit Stat 12/11/19 17:41 Consult Case Management - Discharge Planning Routine Ordered Studies 12/11/19 12:32 CT cervical spine wo con Stat 12/11/19 12:33 CT head/brain wo con Stat 12/11/19 14:35 CT angio chest PE protocol Stat 12/11/19 17:41 US venous doppler LE Stat Hospital Course (1) Pulmonary emboli: Likely related to recent health status and subsequent immobility LE US shows no DVT in left or right leg treated initially with heparin drip, changed to Xarelto 15mg BID on 12/12 plan for 15mg BID x 3 weeks then 20mg daily (2) Anemia: Hb stable at 9.4 had some intermittent hematuria after ureteral stent was pulled (3) UTI (urinary tract infection): Itzel albicans on 12/07 culture, placed on Diflucan, will need 7 days, last day would be 4/2 urine culture from 12/07 at time of procedure growing E coli, soriano sensitive on 12/11 also grew out Enterococcus 12/12, sensitive to Ampicillin will change to Ampicillin IV while here, plan for Augmentin on discharge to treat both infections would need Augmentin through 12/18 WBC is normal, no fever, still with some mild left flank pain (4) Fall: Likely related to deconditioning given current health status Possibly related to hypoxia from PE PT/OT recommends rehab Son expresses concerns about pt remaining alone in home CT head/c-spine, XR R shoulder/hip neg for acute discharge to [facility] (5) Hypomagnesemia: Replaced in ED, monitor stable (6) Kidney stone on left side: s/p lithotripsy and L ureteral stent exchange on 12/07 continue home meds for pain d/w Dr. Erickson, can pull out stent after at least 6 days was giving her a great deal of discomfort, cramps pulled the stent on 12/14, she immediately felt better recommend follow up with Dr. Erickson in 1-2 weeks, call his office to discuss (7) Hyperlipidemia: continue home meds (8) Anxiety: continue home meds (9) Depression: continue home meds (10) Rheumatoid arthritis: continue prednisone 5mg (11) Tobacco abuse: quit 09/14/19 (12) Constipation: Noted on KUB resolved on 12/12, had several BM after Lactulose Total Time Total Time Spent Total Time Spent (In Minutes): 34 minutes Total Time Includes: Examination of the Patient, Discharge Planning, Medication Reconciliation and Other (discussed with both her son and daughter over the phone) Discharge Plan Discharge Items Patient Disposition: Transfer [facility] Reason For Visit: PE Discharge Diagnosis: Pulmonary embolism s/p removal of left ureteral stent complicated UTI with Itzel albicans, E coli and Enterococcus Deconditioning Condition on Discharge: Good Activity: Resume your previous activity Weightbearing: Full weightbearing Non-emergency contact: Primary Care Provider and Urologist Call non-emergency contact if: you have any medication questions, your symptoms worsen and you have a fever Follow-up/Referrals: Dariusz Erickson MD [Physician] - (one month, can be phone follow up) Ben Schmidt [Primary Care Provider] - Diet: Regular Addtl Attending Provider Instructions: Medications: - XARELTO: 15mg twice a day for 18 more days, then start 20mg daily, she will need a new script for 20mg daily - AUGMENTIN: take twice a day for 7 more doses, start this evening - SODIUM CHLORIDE: take 1gm daily to help maintain sodium level above 130 Bilateral pulmonary emboli thought to be provoked with recent hospitalization and surgery for ureteral stone recommend treatment with Xarelto for 6 months and can then stop of note, the patient did NOT have lower extremity DVT on venous doppler studies still requiring 2L nasal canula, no distress, can likely transition off of oxygen over next week Left ureteral stent, stone extraction had this done on 12/[address] Dariusz Erickson with [facility] urology at that time she had a removable stent placed in left ureter the stent was removed by our nursing staff on 12/14, this actually gave the patient a great deal of relief as it was causing abdominal pain/cramping urology warned that she will likely have some hematuria after stent removal UTI: urine culture from 12/07 grew out Itzel, E coli and Enterococcus she completed a course of Diflucan on 12/14 antibiotics were not started until this admission because the urine culture took some time to come back started on Ampicillin IV for both infections, transition to Augmentin for 7 more doses which will be 7 days total Weakness: will require inpatient rehab at [facility], plan to return home once strong enough Pending Studies at Discharge: No Stand-Alone Forms: My [facility] Skilled Items Patient informed of condition?: Yes DNR: No Discharge Level of Care: Skilled Communicable Disease: No Discharge Prognosis: Stable Lines: None Urinary Catheter: No Medications and DC Order Prescriptions: New Xarelto 15 mg Tablet 15 mg PO BID 18 Days Qty: 36 RF: 0 sodium chloride 1 gram tablet 1,000 mg PO DAILY Qty: 30 RF: 0 amoxicillin-pot clavulanate [Augmentin] 875-125 mg tablet 1 tab PO BID Qty: 7 RF: 0 Continued tamsulosin 0.4 mg capsule 0.4 mg PO HS Qty: 30 RF: 3 oxybutynin chloride 5 mg tablet 5 mg PO BID PRN (Reason: bladder spasms) Qty: 30 RF: 0 phenazopyridine [Pyridium] 200 mg tablet 200 mg PO TID PRN (Reason: pain) 30 Days Qty: 30 RF: 0 tramadol [Ultram] 50 mg tablet 50 mg PO Q8H PRN (Reason: pain) Qty: 10 RF: 0 polyethylene glycol 3350 [Miralax] 17 gram Powder In Packet 17 g PO QAM PRN (Reason: Constipation) RF: 0 melatonin 2.5 mg/10 mL Liquid 5 mg PO HS RF: 0 lisinopril 20 mg Tablet 20 mg PO QAM RF: 0 Centrum Silver Women 8 mg iron-400 mcg-300 mcg Tablet 1 tab PO QAM RF: 0 prednisone 10 mg tablet 5 mg PO QAM RF: 0 atorvastatin 20 mg tablet 20 mg PO QAM RF: 0 duloxetine [Cymbalta] 20 mg capsule,delayed release(DR/EC) 20 mg PO QAM RF: 0 cholecalciferol (vitamin D3) [Vitamin D3] 50 mcg (2,000 unit) Capsule 50 mcg PO QAM RF: 0 acetaminophen [Tylenol Extra Strength] 500 mg Tablet 500 mg PO Q6H PRN (Reason: Pain) RF: 0 ketorolac 10 mg tablet 10 mg PO Q6 PRN (Reason: Pain) RF: 0 Discontinued fluconazole 100 mg Tablet 100 mg PO DAILY Qty: 12 RF: 0 Discharge Orders: Discharge Order (Routine); Ordered 12/16/19 Ordered By: Rodo Barnett Admission Data Admit Date/Time: 12/11/19 16:47 Attending Provider: Rodo Barnett Admit Provider: Yanely French Primary Care Provider: Ben Schmidt Other Providers: [place] ; [facility], ; [facility] ; [facility] ; Yanely French Other Interventions: Discharge Summary Assessment (RN) Last Done: 12/16/19 11:39 DC Date/Time DO NOT enter until pt leaves facility: 12/16/19 16:29 Coding Level of Care Code D/C Day Management >30 mins Diagnoses Pulmonary emboli I26.99 Acute cor pulmonale presence: unspecified Chronicity: acute Pulmonary embolism type: other Anemia D64.9 UTI (urinary tract infection) N39.0 Fall W19.XXXA Hypomagnesemia E83.42 Kidney stone on left side N20.0 Hyperlipidemia E78.5 Hyperlipidemia type: unspecified Anxiety F41.9 Depression F33.9 Active/Remission status: remission status unspecified Depression Type: major depressive disorder Major depression recurrence: recurrent Rheumatoid arthritis M06.9 Rheumatoid arthritis location: unspecified site Rheumatoid factor presence: unspecified presence Tobacco abuse Z72.0 Constipation K59.00
== END 2019-12-16 16:29 | DRG 176 ==
LOC: ED 12:12 → 2E 16:47 → SUATTDRO 16:47 → 2E 17:08 → 2W 12-14 10:17

== ENCOUNTER 2020-01-18 15:07 | Inpatient (IN) ==
[2020-01-18] MEDS ORDERED: SODIUM CHLORIDE 0.9% 500 ML IV ONE (15:27)
--- NOTE | 2020-01-18 16:02 | XRay Report ---
XR pelvis 1-2V routine CLINICAL HISTORY: trauma, right hip pain pain COMPARISON: 12/11/2019 DISCUSSION: Anatomic alignment posttotal right hip arthroplasty. Could contact between prosthetic and underlying bone. No evidence for acute fracture or dislocation. There is no evidence for soft tissue swelling. IMPRESSION: No acute process post total right hip arthroplasty. ACT 112: Negative or not required by law. The above report was generated using voice recognition software. It may contain grammatical, syntax or spelling errors. Electronically signed by: Peter Santillan M.D. 01/18/2020 4:01 PM
--- NOTE | 2020-01-18 16:03 | XRay Report ---
XR chest 1V portable CLINICAL HISTORY: 89 years-old Female presenting with trauma. TECHNIQUE: Portable upright AP view of the chest was obtained. COMPARISON: 12/11/2019. FINDINGS: Atherosclerosis of the aortic arch. Cardiac silhouette borderline enlarged. Mitral annular calcificat ion may be present. Lungs are hyperinflated. Subtle nodule suggested at the right apex which likely c orrelates with the nodule on the recent CTA chest. No new focal opacity.. Skin folds project over the apices. No pleural effusion or pneumothorax. Degenerative changes of the thoracic spine. Upper abdom en normal. IMPRESSION: 1. Findings suggest emphysema. No focal infiltrate to suggest pneumonia. 2. Right apical nodule as seen on CTA chest. This measures 6 mm on the CTA in retrospect. Follow-up per Fleischner Society 2017 criteria below. Summary of Fleischner Society 2017 Recommendations (H Aileen et al. Guidelines for management of i ncidental pulmonary nodules detected on CT images: From the Fleischner Society 2017. Radiology 2017; 284: 228-243.) SOLID NODULES Single nodule; size < 6 mm * Low risk patients: No routine follow-up * High risk patients: Optional CT at 12 months Single nodule; size 6-8 mm * Low risk patients: CT at 6-12 months, then consider CT at 18-24 months * High risk patients: CT at 6-12 months, then at 18-24 months Single nodule; size > 8 mm * Either low or high risk patients: Consider CT at 3 months, PET/CT, or tissue sampling Multiple nodules; size < 6 mm * Low risk patients: No routine follow up * High risk patients: Optional CT at 12 months Multiple nodules; size 6-8 mm * Low risk patients: CT at 3-6 months, then consider CT at 18-24 months * High risk patients: CT at 3-6 months, then at 18-24 months Multiple nodules; size > 8 mm * Low risk patients: CT at 3-6 months, then consider at 18-24 months * High risk patients: CT at 3-6 months, then at 18-24 months SUBSOLID NODULES Single ground-glass nodule * Nodule size < 6 mm: No routine follow-up * Nodule size > or = 6 mm: CT at 6-12 months to confirm persistence, then CT every 2 years until 5 y ears Single part-solid nodule * Nodule size < 6 mm: No routine follow-up * Nodules size > or = 6 mm: CT at 3-6 months to confirm persistence. If unchanged and solid componen t remains < 6 mm, annual CT should be performed for 5 years Multiple nodules * Nodule size < 6 mm: CT at 3-6 months. If stable, consider CT at 2 and 4 years. * Nodules size > or = 6 mm: CT at 3-6 months. Subsequent management based on the most suspicious nod ule(s) NOTE: 1) These guidelines apply to incidental nodules. These guidelines do NOT apply to patients younger th an 35 years, immunocompromised patients, or patients with cancer. 2) Risk categories: * Low risk patients: Minimal or absent history of smoking and/or other known risk factors * High risk patients: History of smoking, exposure to other carcinogens, emphysema, fibrosis, upper lobe location, family history of lung cancer, etc. 3) If a nodule up to 8 mm is partly solid or is ground glass, further follow-up is required after 24 months to exclude possible slow growing adenocarcinoma. ACT 112: Negative or not required by law. Electronically signed by: Erik Dowd M.D. 01/18/2020 4:02 PM
[2020-01-18 16:25] LABS: Basophils # (auto) 0.01 K/uL (0-0.2); Basophils % (auto) 0.1 %; Eosinophils # (auto) 0.01 K/uL (0-0.5); Eosinophils % (auto) 0.1 %; Hematocrit (blood only) 34.9 % (37-47); Hemoglobin 11.8 g/dL (12.0-16.0); Immature Granulocytes # (auto) 0.03 K/uL (0.00-0.02); Immature Granulocytes % (auto) 0.3 %; Lymphocytes # (auto) 0.91 K/uL (1.2-3.4); Mean Corpuscular Hemoglobin 34.2 pg (25-34); Mean Corpuscular Hgb Conc 33.8 g/dL (32-36); Mean Corpuscular Volume 101.2 fL (80-100); Monocytes % (auto) 7.9 %; Neutrophils # (auto) 8.31 K/uL (1.4-6.5); Neutrophils % (auto) 82.6 %; Nucleated RBC # (auto) 0.02 K/uL (0-0); Nucleated RBC % (auto) 0.2 %; Platelet Count 273 K/uL (130-400); RDW Coefficient of Variation 14.8 % (11.5-14.5); RDW Standard Deviation 53.9 fL (36.4-46.3); Red Blood Count 3.45 M/uL (4.2-5.4); White Blood Count 10.07 K/uL (4.8-10.8)
[2020-01-18 16:37] LABS: INR 1.4 (0.9-1.1); Prothrombin Time 14.1 Seconds (9.0-12.0)
[2020-01-18 16:42] LABS: Albumin Level 3.4 gm/dl (3.4-5.0); BUN Creatinine Ratio 28.7 (10-20); Calcium 8.6 mg/dl (8.5-10.1); Creatinine Clr Calc Pharmacy 35.6 ml/min; Est GFR (Non-African American) 67.3; Potassium 4.8 mmol/L (3.5-5.1)
[2020-01-18 16:47] LABS: Albumin Globulin Ratio 1.2 (0.9-2); Bilirubin,Total 0.4 mg/dl (0.2-1); Globulin 2.9 gm/dl (2.5-4.0); Total Protein 6.3 gm/dl (6.4-8.2); Troponin I 0.016 ng/ml (0-0.045)
[2020-01-18] MEDS ORDERED: ACETAMINOPHEN 1,000 MG/100 ML VIAL IV STA (16:53)
--- NOTE | 2020-01-18 16:53 | CT Scan Report ---
CT head/brain wo con CT DOSE: 1204.89 mGy.cm HISTORY: Trauma trauma, blood thinners TECHNIQUE: Multiaxial CT images of the head were performed without the use of intravenous contrast. A dose lowering technique was utilized adhering to the principles of ALARA. Comparison: 12/11/2019 Findings: The paranasal sinuses and mastoid air cells are clear. The calvarium and skull base are int act. The ventricles and sulci are within normal limits. There is no mass, hematoma, midline shift, or acute infarct. Impression: No acute intracranial abnormality. Age-related atrophy and chronic small vessel change. ACT 112: Negative or not required by law. The above report was generated using voice recognition software. It may contain grammatical, syntax or spelling errors. Electronically signed by: Peter Santillan M.D. 01/18/2020 4:52 PM
--- NOTE | 2020-01-18 16:55 | CT Scan Report ---
CT lumbar spine wo con CT DOSE: HISTORY: Pain trauma, back pain TECHNIQUE: Multiaxial CT images of the lumbar spine were performed and reformatted in the sagittal an d coronal plane without the use of contrast. A dose lowering technique was utilized adhering to the principles of ALARA. COMPARISON: None. FINDINGS: Severe degenerative disc changes throughout. Osteopenia. Vertebral body stature is unremark able. Posterior bulging disc components are identified at all levels. There is atherosclerotic change of the abdominal aorta and iliac vasculature. IMPRESSION: Considerable degenerative change. No acute process. ACT 112: Negative or not required by law. The above report was generated using voice recognition software. It may contain grammatical, syntax or spelling errors. Electronically signed by: Peter Santillan M.D. 01/18/2020 4:54 PM
--- NOTE | 2020-01-18 16:59 | Emergency Department Note ---
History of Present Illness General Chief complaint: Fall Stated complaint: FELL A FEW TIMES Time Seen by Provider: 01/18/20 15:16 Source: patient Mode of arrival: EMS Limitations: no limitations History of Present Illness Provider complaint: Fall, head injury Onset (ago): hour(s) 4 Location: head and back Radiation: extremity Severity: moderate Pain Consistency: + constant Maximum Pain Intensity: 8 Current Pain Intensity: 8 Quality: + constant Relieved By: + movement Exacerbated By: + movement Associated symptoms: no chest pain, no fever/chills, no loss of appetite, no nausea/vomiting and no shortness of breath Treatments prior to arrival: none This is an 89-year-old female from home who presents complaining of a head injury and laceration after a fall at home earlier today. Patient states she was feeling her usual state of health became off balance while in the kitchen and fell. Patient states that she sustained a cut above her right eye as well as a bruise to the back of her head. Patient here at family's insistence because she is on blood thinners. Patient states she did not lose conscious ness. Patient states she called for her son who is 5 minutes away and he came and helped her get up off the floor. Patient states she had some mild low back pain, but otherwise did not believe she sustained any additional injury. Family called her family doctor who then advised she come to the ER for additional evaluation. Patient denies any recent change in her medications, no change in diet, no recent illness. No contact with any known coronavirus positive individual. Patient states tetanus shot is up-to-date. Pt seen during a time of high acuity and national emergency pandemic while wearing PPE. Home Medications Home Medications Medication Instructions Recorded Confirmed Type Centrum Silver Women 1 tab PO QAM 07/06/18 01/18/20 History atorvastatin 20 mg PO QAM 09/05/19 01/18/20 History cholecalciferol (vitamin D3) 2,000 unit PO QAM 09/05/19 01/18/20 History [Vitamin D3] duloxetine [Cymbalta] 20 mg PO QAM 09/05/19 01/18/20 History prednisone 5 mg PO QAM 09/05/19 01/18/20 History polyethylene glycol 3350 [Miralax] 17 g PO QAM PRN 09/28/19 01/18/20 History lisinopril 20 mg PO QAM 11/11/19 01/18/20 History acetaminophen [Tylenol Extra 1,000 mg PO TID 11/12/19 01/18/20 History Strength] tamsulosin 0.4 mg capsule 0.4 mg PO HS #30 cap 12/01/19 01/18/20 Rx Cbd Oil 1 ml PO HS 01/18/20 01/18/20 History Xarelto 20 mg PO DAILY 01/18/20 01/18/20 History acetaminophen 500 mg PO UD 01/18/20 01/18/20 History amoxicillin 500 mg PO Q12H #7 cap 01/18/20 Rx melatonin 6 mg PO HS 01/18/20 01/18/20 History sulfasalazine 500 mg PO BID 01/18/20 01/18/20 History tramadol 50 mg PO AMHS 01/18/20 01/18/20 History amoxicillin 500 mg PO Q12 #7 cap 01/20/20 Rx Allergies Allergy/AdvReac Type Severity Reaction Status Date / Time Sulfa (Sulfonamide Allergy Intermediate Rash Verified 01/18/20 17:22 Antibiotics) [email or web address] [From Myrbetriq] AdvReac Intermediate hypertensio Verified 01/18/20 17:22 n nicotine AdvReac Mild PATCH-SKIN Verified 01/18/20 17:22 IRRITATION shrimp AdvReac Mild Photosensit Verified 01/18/20 17:22 ivity Past Med/Surg History Medical History Anemia Anxiety (Chronic) Depression (Chronic) Glaucoma (Chronic) Hearing deficit (Chronic) BL ROMERO Hyperlipidemia (Chronic) Hyponatremia (Acute) Kidney stones (Chronic) Osteoarthritis (Chronic) Rheumatoid arthritis (Chronic) Surgical History Hip fracture requiring operative repair History of cataract surgery (Resolved) left and right History of colonoscopy (Resolved) History of cystoscopy WITH STENT History of lithotripsy (Resolved) x 2 History of tooth extraction (Resolved) Nausea and vomiting after administration of anesthetic agent Status post cystoscopy with ureteral stent placement 10/28/2019 [facility] Family History Father Hypertension Other No pertinent family history in first degree relatives Social History Preferred Language: Citizen Of [place] Communication Ability: Effective Visual Impairment: No Limitations [employer] Service [employer] Required: No Beliefs That Will Affect Care: None marital status: / Current Living Situation: Alone Feels Safe at Home: Yes Smoking Status: Former smoker Tobacco Type: cigarettes ; Cigarettes Per Day: 20-40 ; Second Hand Exposure: No ; Hx Alcohol Use: Yes Alcohol type: wine Alcohol Intake Frequency Comment: occasional, rare Hx Substance Use: No Review of Systems See HPI for pertinent positives & negatives. and A total of 10 systems reviewed and were otherwise negative Physical Exam Vital Signs Vital Signs - 24 hr 01/18/20 15:08 01/18/20 16:15 01/18/20 16:59 Temperature 37 C Temperature Source Oral Pulse Rate 97 H 85 Pulse Rate [Apical] 89 Pulse Rate from SpO2 Sensor 85 Respiratory Rate 18 20 15 Blood Pressure 134/75 174/89 H Blood Pressure [Left Arm] 164/82 H Blood Pressure Mean 94 120 Blood Pressure Mean [Left Arm] 109 Pulse Oximetry 94 92 93 Oxygen Delivery Method Room Air Room Air Room Air Sepsis Recent Fever Within 48 Hours No Sepsis New/Unexplained Change in Mental Status No Sepsis Action Taken by Nursing No Action Required 01/18/20 17:00 01/18/20 17:30 01/18/20 18:32 Temperature Temperature Source Pulse Rate 87 92 H Pulse Rate [Apical] 85 Pulse Rate from SpO2 Sensor 88 93 H Respiratory Rate 20 22 19 Blood Pressure 168/85 H 172/88 H Blood Pressure [Left Arm] 174/89 H Blood Pressure Mean 117 98 Blood Pressure Mean [Left Arm] 117 Pulse Oximetry 98 96 95 Oxygen Delivery Method Room Air Room Air Sepsis Recent Fever Within 48 Hours Sepsis New/Unexplained Change in Mental Status Sepsis Action Taken by Nursing 01/18/20 19:01 Temperature Temperature Source Pulse Rate 89 Pulse Rate [Apical] Pulse Rate from SpO2 Sensor 89 Respiratory Rate 14 Blood Pressure 207/75 H Blood Pressure [Left Arm] Blood Pressure Mean 157 Blood Pressure Mean [Left Arm] Pulse Oximetry 95 Oxygen Delivery Method Room Air Sepsis Recent Fever Within 48 Hours Sepsis New/Unexplained Change in Mental Status Sepsis Action Taken by Nursing GENERAL: alert, well appearing, well nourished, no distress, non-toxic HEAD: normal cephalic, 2 cm contusion noted to occipital scalp, no facial bone tenderness, no midface instability, 2 cm superficial laceration without bleeding noted lateral to the right eyebrow and right supraorbital ridge, no demarco sign, no raccoon eyes EYE EXAM: normal conjunctiva, PERRL and EOM's grossly intact OROPHARYNX: no exudate, no erythema, lips, buccal mucosa, and tongue normal and mucous membranes are moist EARS: TMs clear b/l without hemotympanum, no edema along the canal NECK: supple, no nuchal rigidity, no adenopathy, non-tender CHEST: stable to compression anteriorly and posteriorly, no crepitus LUNGS: clear to auscultation. Normal chest wall mechanics, no w/r/r HEART: no murmurs, S1 normal and S2 normal ABDOMEN: abdomen soft, non-tender, normo-active bowel sounds, no masses, no rebound or guarding. PELVIS: stable to compression anteriorly and posteriorly, no pain with palpation BACK: Back is symmetrical on inspection and there is no deformity, pain with palpation across entire low back, no CVA tenderness. UPPER EXTREMITIES: full active and passive range of motion of all joints without tenderness to palpation, no obvious deformities, no evidence of trauma, normal pulses bilaterally, sensation intact LOWER EXTREMITIES: full active and passive range of motion of all joints without tenderness to palpation, no obvious deformities, no evidence of trauma, normal pulses bilaterally, sensation intact NEURO EXAM: Normal sensorium, cranial nerves II-XII grossly intact, normal speech, no gross weakness of arms, no gross weakness of legs. GCS: 15. Course Course 173: Pt updated on results so far. Pt states she is still having back pain. 174: Discussed with daughter in law, Brittany. Pt was recently in inpt rehab. Pt does use tramadol for pain at home as well. 1850: Patient was able to ambulate here although stated she had a significantly increased pain compared to her baseline. Extensive bedside discussion with her regarding her safety and going home given her increased pain and increased difficulty with ambulation given that she lives alone. Patient willing to consider inpatient rehab, however does not want to go to [facility]. Patient is aware that if no other options are available this evening, she may need to stay in the hospital overnight until she could be placed in the morning. Administered Medications Discontinued Medications Acetaminophen (Tylenol) 1,000 mg PO Q8H PRN PRN Reason: MILD Pain (Scale 1,2,3) Stop: 02/17/20 22:43 Last Admin: 01/20/20 15:21 Dose: 1,000 mg Documented by: [id number] Admin: 01/20/20 06:40 Dose: 1,000 mg Documented by: [id number] Admin: 01/19/20 21:45 Dose: 1,000 mg Documented by: [id number] Admin: 01/19/20 07:44 Dose: 1,000 mg Documented by: [id number] Admin: 01/18/20 22:58 Dose: 1,000 mg Documented by: [id number] Amoxicillin (Amoxil) 500 mg PO Q12 [facility]; Protocol Stop: 01/29/20 14:59 Last Admin: 01/20/20 08:48 Dose: 500 mg Documented by: [id number] Admin: 01/19/20 23:47 Dose: 500 mg Documented by: [id number] Admin: 01/19/20 14:54 Dose: 500 mg Documented by: [id number] Atorvastatin Calcium (Lipitor) 20 mg PO [facility] Stop: 02/18/20 08:59 Last Admin: 01/20/20 08:48 Dose: 20 mg Documented by: [id number] Admin: 01/19/20 08:35 Dose: 20 mg Documented by: [id number] Diclofenac Sodium (Voltaren 1% Top) 2 gm EXT NOW STA Stop: 01/18/20 17:29 Last Admin: 01/18/20 17:53 Dose: 2 gm Documented by: [id number] Duloxetine HCl (Cymbalta) 20 mg PO [facility] Stop: 02/18/20 08:59 Last Admin: 01/20/20 08:48 Dose: 20 mg Documented by: [id number] Admin: 01/19/20 08:34 Dose: 20 mg Documented by: [id number] Sodium Chloride (Nss) 500 mls @ 999 mls/hr IV .Q31M ONE Stop: 01/18/20 15:57 Last Infusion: 01/18/20 16:51 Dose: 0 mls/hr Documented by: [id number] Admin: 01/18/20 16:12 Dose: 999 mls/hr Documented by: [id number] Acetaminophen (Ofirmev) 1,000 mg in 100 mls @ 400 mls/hr IV NOW STA Stop: 01/18/20 17:07 Last Infusion: 01/18/20 17:16 Dose: 0 mls/hr Documented by: [id number] Admin: 01/18/20 17:00 Dose: 400 mls/hr Documented by: [id number] Ceftriaxone Sodium (Rocephin) 1,000 mg in 50 mls @ 100 mls/hr IV NOW [facility] Stop: 01/18/20 18:16 Last Infusion: 01/18/20 18:23 Dose: 0 mls/hr Documented by: [id number] Admin: 01/18/20 17:53 Dose: 100 mls/hr Documented by: [id number] [facility]est[facility]) [facility] Stop: 02/18/20 08:59 Last Admin: 01/20/20 08:48 Dose: 20 mg Documented by: [id number] Admin: 01/19/20 08:36 Dose: 20 mg Documented by: [id number] Magnesium Hydroxide (Milk Of Magnesia) 30 ml PO Q6H PRN PRN Reason: Constipation Stop: 02/17/20 21:24 Last Admin: 01/20/20 08:46 Dose: 30 ml Documented by: [id number] Melatonin (Melatonin) 6 mg PO [facility] Stop: 02/18/20 20:59 Last Admin: 01/19/20 21:46 Dose: 6 mg Documented by: [id number] Morphine Sulfate (Morphine Sulfate) 2 mg IV Q2H PRN PRN Reason: MODERATE Pain (Scale 4,5,6) Stop: 02/01/20 22:43 Last Admin: 01/20/20 12:20 Dose: 2 mg Documented by: [id number] Admin: 01/20/20 05:27 Dose: 2 mg Documented by: [id number] Admin: 01/19/20 19:23 Dose: 2 mg Documented by: [id number] Admin: 01/19/20 13:30 Dose: 2 mg Documented by: [id number] Admin: 01/19/20 04:33 Dose: 2 mg Documented by: [id number] Admin: 01/19/20 00:42 Dose: 2 mg Documented by: [id number] Multivitamins/Minerals (Multivitamin W/ Minerals Tab) [facility] [place] Stop: 02/18/20 08:59 Last Admin: 01/20/20 08:48 Dose: 1 tab Documented by: [id number] Admin: 01/19/20 08:35 Dose: 1 tab Documented by: [id number] Phenazopyridine HCl (Pyridium) 200 mg PO NOW STA Stop: 01/19/20 03:27 Last Admin: 01/19/20 04:36 Dose: 200 mg Documented by: [id number] Polyethylene Glycol (Miralax Powder Packet) 17 gm PO BID TIA Stop: 02/18/20 08:59 Last Admin: 01/20/20 08:49 Dose: 17 gm Documented by: [id number] Admin: 01/19/20 21:45 Dose: 17 gm Documented by: [id number] Admin: 01/19/20 08:40 Dose: 17 gm Documented by: [id number] Polyethylene Glycol (Miralax Powder Packet) 17 gm PO ONE STA Stop: 01/18/20 22:23 Last Admin: 01/18/20 23:01 Dose: 17 gm Documented by: [id number] Prednisone (Prednisone) 5 mg PO QAM [facility] Stop: 02/18/20 08:59 Last Admin: 01/20/20 08:49 Dose: 5 mg Documented by: [id number] Admin: 01/19/20 08:35 Dose: 5 mg Documented by: [id number] Rivaroxaban (Xarelto) 20 mg PO DAILY [facility] Stop: 02/18/20 08:59 Last Admin: 01/20/20 08:48 Dose: 20 mg Documented by: [id number] Admin: 01/19/20 08:35 Dose: 20 mg Documented by: [id number] Sulfasalazine (Azulfidine Delayed Rel) 500 mg PO BID [facility] Stop: 02/17/20 22:43 Last Admin: 01/20/20 08:48 Dose: 500 mg Documented by: [id number] Admin: 01/19/20 21:46 Dose: 500 mg Documented by: [id number] Admin: 01/19/20 08:34 Dose: 500 mg Documented by: [id number] Admin: 01/19/20 00:42 Dose: 500 mg Documented by: [id number] Tamsulosin HCl (Flomax) 0.4 mg PO HS [facility] Stop: 02/18/20 20:59 Last Admin: 01/19/20 21:46 Dose: 0.4 mg Documented by: [id number] Tramadol HCl (Ultram) 50 mg PO NOW STA Stop: 01/18/20 17:48 Last Admin: 01/18/20 17:53 Dose: 50 mg Documented by: [id number] Tramadol HCl (Ultram) 50 mg PO [facility] TIA Stop: 02/18/20 08:59 Last Admin: 01/20/20 08:48 Dose: 50 mg Documented by: [id number] Admin: 01/19/20 21:45 Dose: 50 mg Documented by: [id number] Admin: 01/19/20 08:39 Dose: 50 mg Documented by: [id number] Vitamin D (Vitamin D3) 2,000 units PO QAM [facility] Stop: 02/18/20 08:59 Last Admin: 01/20/20 08:48 Dose: 2,000 units Documented by: [id number] Admin: 01/19/20 08:35 Dose: 2,000 units Documented by: [id number] Medical Decision Making Differential Diagnosis Differential diagnoses include major intracranial, cervical, spinal, thoracic, abdominal, pelvic and neurologic injury. Fracture, contusion, sprain, strain, laceration, abrasions included as well. Medical Records Attestation: I reviewed the patient's medical records. Home Medications Current Medication List: was personally reviewed by me Laboratory Data Attestation: I reviewed the patient's lab results. Result diagrams: 01/19/20 05:29 01/19/20 05:29 Lab Results 01/18/20 01/18/20 01/18/20 Range/Units 16:12 16:12 16:12 WBC 10.07 (4.8-10.8) K/uL RBC 3.45 L (4.2-5.4) M/uL Hgb 11.8 L (12.0-16.0) g/dL Hct 34.9 L (37-47) % MCV 101.2 H (80-100) fL MCH 34.2 H (25-34) pg MCHC 33.8 (32-36) g/dL RDW Std Deviation 53.9 H (36.4-46.3) fL RDW Coeff of Chiara 14.8 H (11.5-14.5) % Plt Count 273 (130-400) K/uL MPV 9.0 (7.4-10.4) fL Immature Gran % (Auto) 0.3 % Neut % (Auto) 82.6 % Lymph % (Auto) 9.0 % Price % (Auto) 7.9 % Eos % (Auto) 0.1 % Baso % (Auto) 0.1 % Immature Gran # (Auto) 0.03 H (0.00-0.02) K/uL Neut # (Auto) 8.31 H (1.4-6.5) K/uL Lymph # (Auto) 0.91 L (1.2-3.4) K/uL Price # (Auto) 0.80 H (0.11-0.59) K/uL Eos # (Auto) 0.01 (0-0.5) K/uL Baso # (Auto) 0.01 (0-0.2) K/uL Absolute Nucleated RBC 0.02 H (0-0) K/uL Nucleated RBC % (auto) 0.2 % PT 14.1 H (9.0-12.0) Seconds INR 1.4 H (0.9-1.1) Sodium 131 L (136-145) mmol/L Potassium 4.8 (3.5-5.1) mmol/L Chloride 100 (98-107) mmol/L Carbon Dioxide 26 (21-32) mmol/L Anion Gap 5.0 (3-11) BUN 23 H (7-18) mg/dl Creatinine 0.79 (0.6-1.2) mg/dl Est Cr Clr Drug Dosing 35.6 ml/min Est GFR ( Amer) 78.0 Est GFR (Non-Af Amer) 67.3 BUN/Creatinine Ratio 28.7 H (10-20) Glucose 126 H (70-99) mg/dl Calcium 8.6 (8.5-10.1) mg/dl Total Bilirubin 0.4 (0.2-1) mg/dl AST 17 (15-37) U/L ALT 18 (12-78) U/L Alkaline Phosphatase 52 (45-117) U/L Troponin I 0.016 (0-0.045) ng/ml Total Protein 6.3 L (6.4-8.2) gm/dl Albumin 3.4 (3.4-5.0) gm/dl Globulin 2.9 (2.5-4.0) gm/dl Albumin/Globulin Ratio 1.2 (0.9-2) Urine Color Urine Appearance (Clear) Urine pH (4.5-7.5) Ur Specific Hilbert (1.000-1.030) Urine Protein (Negative) Urine Glucose (UA) (Negative) Urine Ketones (Negative) Urine Blood (Negative) Urine Nitrite (Negative) Urine Bilirubin (Negative) Urine Urobilinogen (Negative) Ur Leukocyte Esterase (Negative) Urine WBC (Auto) (0-5) /hpf Urine RBC (Auto) (0-4) /hpf U Hyaline Cast (Auto) (0-5) /lpf U Epithel Cells (Auto) (0-5) /lpf Urine Bacteria (Auto) (Negative) 01/18/20 Range/Units 17:11 WBC (4.8-10.8) K/uL RBC (4.2-5.4) M/uL Hgb (12.0-16.0) g/dL Hct (37-47) % MCV (80-100) fL MCH (25-34) pg MCHC (32-36) g/dL RDW Std Deviation (36.4-46.3) fL RDW Coeff of Chiara (11.5-14.5) % Plt Count (130-400) K/uL MPV (7.4-10.4) fL Immature Gran % (Auto) % Neut % (Auto) % Lymph % (Auto) % Price % (Auto) % Eos % (Auto) % Baso % (Auto) % Immature Gran # (Auto) (0.00-0.02) K/uL Neut # (Auto) (1.4-6.5) K/uL Lymph # (Auto) (1.2-3.4) K/uL Price # (Auto) (0.11-0.59) K/uL Eos # (Auto) (0-0.5) K/uL Baso # (Auto) (0-0.2) K/uL Absolute Nucleated RBC (0-0) K/uL Nucleated RBC % (auto) % PT (9.0-12.0) Seconds INR (0.9-1.1) Sodium (136-145) mmol/L Potassium (3.5-5.1) mmol/L Chloride (98-107) mmol/L Carbon Dioxide (21-32) mmol/L Anion Gap (3-11) BUN (7-18) mg/dl Creatinine (0.6-1.2) mg/dl Est Cr Clr Drug Dosing ml/min Est GFR ( Amer) Est GFR (Non-Af Amer) BUN/Creatinine Ratio (10-20) Glucose (70-99) mg/dl Calcium (8.5-10.1) mg/dl Total Bilirubin (0.2-1) mg/dl AST (15-37) U/L ALT (12-78) U/L Alkaline Phosphatase (45-117) U/L Troponin I (0-0.045) ng/ml Total Protein (6.4-8.2) gm/dl Albumin (3.4-5.0) gm/dl Globulin (2.5-4.0) gm/dl Albumin/Globulin Ratio (0.9-2) Urine Color Yellow Urine Appearance Clear (Clear) Urine pH 7.5 (4.5-7.5) Ur Specific Hilbert 1.017 (1.000-1.030) Urine Protein Negative (Negative) Urine Glucose (UA) Negative (Negative) Urine Ketones Negative (Negative) Urine Blood Negative (Negative) Urine Nitrite Negative (Negative) Urine Bilirubin Negative (Negative) Urine Urobilinogen Negative (Negative) Ur Leukocyte Esterase 2+ H (Negative) Urine WBC (Auto) 10-30 H (0-5) /hpf Urine RBC (Auto) 0-4 (0-4) /hpf U Hyaline Cast (Auto) 1-5 (0-5) /lpf U Epithel Cells (Auto) 0-5 (0-5) /lpf Urine Bacteria (Auto) 1+ H (Negative) Imaging Data Radiologist's Impression: CT head/brain wo con CT DOSE: 1204.89 mGy.cm HISTORY: Trauma trauma, blood thinners TECHNIQUE: Multiaxial CT images of the head were performed without the use of intravenous contrast. A dose lowering technique was utilized adhering to the principles of ALARA. Comparison: 12/11/2019 Findings: The paranasal sinuses and mastoid air cells are clear. The calvarium and skull base are intact. The ventricles and sulci are within normal limits. There is no mass, hematoma, midline shift, or acute infarct. Impression: No acute intracranial abnormality. Age-related atrophy and chronic small vessel change. ACT 112: Negative or not required by law. The above report was generated using voice recognition software. It may contain grammatical, syntax or spelling errors. Electronically signed by: Peter Santillan M.D. 01/18/2020 4:[address] cervical spine wo con CT DOSE: HISTORY: Trauma. Pain. trauma TECHNIQUE: Multiaxial CT images of the cervical spine were performed and refor matted in the sagittal and coronal plane without the use of contrast. A dose lowering technique was utilized adhering to the principles of ALARA. COMPARISON: 12/11/2019 FINDINGS: Considerable degenerative disc changes throughout the entire cervical region. Anterior and posterior osteophytic changes throughout. No evidence for a compression deformity. Degenerative changes of the posterior elements at all levels. No acute abnormality of the posterior arch. IMPRESSION: Considerable degenerative change. No acute abnormality. ACT 112: Negative or not required by law. The above report was generated using voice recognition software. It may contain grammatical, syntax or spelling errors. Electronically signed by: Peter Santillan M.D. 01/18/2020 4:[address] lumbar spine wo con CT DOSE: HISTORY: Pain trauma, back pain TECHNIQUE: Multiaxial CT images of the lumbar spine were performed and reformatted in the sagittal and coronal plane without the use of contrast. A dose lowering technique was utilized adhering to the principles of ALARA. COMPARISON: None. FINDINGS: Severe degenerative disc changes throughout. Osteopenia. Vertebral body stature is unremarkable. Posterior bulging disc components are identified at all levels. There is atherosclerotic change of the abdominal aorta and iliac vasculature. IMPRESSION: Considerable degenerative change. No acute process. ACT 112: Negative or not required by law. The above report was generated using voice recognition software. It may contain grammatical, syntax or spelling errors. Electronically signed by: Peter Santillan M.D. 01/18/2020 4:54 PM XR chest 1V portable CLINICAL HISTORY: 89 years-old Female presenting with trauma. TECHNIQUE: Portable upright AP view of the chest was obtained. COMPARISON: 12/11/2019. FINDINGS: Atherosclerosis of the aortic arch. Cardiac silhouette borderline enlarged. M itral annular calcification may be present. Lungs are hyperinflated. Subtle nodule suggested at the right apex which likely correlates with the nodule on the recent CTA chest. No new focal opacity.. Skin folds project over the apices. No pleural effusion or pneumothorax. Degenerative changes of the thoracic spine. Upper abdomen normal. IMPRESSION: 1. Findings suggest emphysema. No focal infiltrate to suggest pneumonia. 2. Right apical nodule as seen on CTA chest. This measures 6 mm on the CTA in retrospect. Follow-up per Fleischner Society 2017 criteria below. Summary of Fleischner Society 2017 Recommendations (H Aileen, et al. Guidelines for management of incidental pulmonary nodules detected on CT images: From the Fleischner Society 2017. Radiology 2017; 284: 228-243.) SOLID NODULES Single nodule; size < 6 mm * Low risk patients: No routine follow-up * High risk patients: Optional CT at 12 months Single nodule; size 6-8 mm * Low risk patients: CT at 6-12 months, then consider CT at 18-24 months * High risk patients: CT at 6-12 months, then at 18-24 months Single nodule; size > 8 mm * Either low or high risk patients: Consider CT at 3 months, PET/CT, or tissue sampling Multiple nodules; size < 6 mm * Low risk patients: No routine follow up * High risk patients: Optional CT at 12 months Multiple nodules; size 6-8 mm * Low risk patients: CT at 3-6 months, then consider CT at 18-24 months * High risk patients: CT at 3-6 months, then at 18-24 months Multiple nodules; size > 8 mm * Low risk patients: CT at 3-6 months, then consider at 18-24 months * High risk patients: CT at 3-6 months, then at 18-24 months SUBSOLID NODULES Single ground-glass nodule * Nodule size < 6 mm: No routine follow-up * Nodule size > or = 6 mm: CT at 6-12 months to confirm persistence, then CT every 2 years until 5 years Single part-solid nodule * Nodule size < 6 mm: No routine follow-up * Nodules size > or = 6 mm: CT at 3-6 months to confirm persistence. If unch anged and solid component remains < 6 mm, annual CT should be performed for 5 years Multiple nodules * Nodule size < 6 mm: CT at 3-6 months. If stable, consider CT at 2 and 4 years. * Nodules size > or = 6 mm: CT at 3-6 months. Subsequent management based on the most suspicious nodule(s) NOTE: 1) These guidelines apply to incidental nodules. These guidelines do NOT apply to patients younger than 35 years, immunocompromised patients, or patients with cancer. 2) Risk categories: * Low risk patients: Minimal or absent history of smoking and/or other known risk factors * High risk patients: History of smoking, exposure to other carcinogens, emphysema, fibrosis, upper lobe location, family history of lung cancer, etc. 3) If a nodule up to 8 mm is partly solid or is ground glass, further follow-up is required after 24 months to exclude possible slow growing adenocarcinoma. ACT 112: Negative or not required by law. Electronically signed by: Erik Dowd M.D. 01/18/2020 4:02 PM XR pelvis 1-2V routine CLINICAL HISTORY: trauma, right hip pain pain COMPARISON: 12/11/2019 DISCUSSION: Anatomic alignment posttotal right hip arthroplasty. Could contact between prosthetic and underlying bone. No evidence for acute fracture or dislocation. There is no evidence for soft tissue swelling. IMPRESSION: No acute process post total right hip arthroplasty. ACT 112: Negative or not required by law. The above report was generated using voice recognition software. It may contain grammatical, syntax or spelling errors. Electronically signed by: Peter Santillan M.D. 01/18/2020 4:01 PM ECG Data Attestation: I personally reviewed and interpreted this ECG as follows: Indication: + other (trauma) Rate (beats per minute): 89 Rhythm: + normal sinus ECG Intervals/blocks: + Normal QRS and + Normal QT ECG ST segments: + Nonspecific ST abnormalities ECG Findings: + Poor R wave progression Comparison ECG Date: from (12/12/2019) Change: no significant change Blood Pressure Blood Pressure Findings: Elevated blood pressure Blood Pressure Disposition: Referred to patients primary care provider MDM Narrative Pt here well appearing despite head trauma and reported fall. Pt only complained about the head injury and low back pain. No other complaints of pain. Ct's reassuring. Labs reassuring and I do not suspect syncopal event, more likely mechanica fall. I have a low suspicion for any additional occult traumatic injury. I am concerned about pt's ability to ambulate as well as complaints of increased pain despite additional pain meds. Discussed option of inpat rehab and after conversations with her and her family, she was in agreement. payroll specialist evaluating options for placement. If patient cannot be placed tonight, will keep in hospital until can be placed or symptoms improve. I do not suspect occult infection or electrolyte abnormality. Hyponatremia noted, however pt with chronic hyponatremia and this appears similar to prior. An order was placed for continuous cardiac monitoring. The monitor shows a rate of 80 with normal sinus rhythm. Impression & Plan CHI (closed head injury), Facial laceration, Contusion of scalp, Low back pain, Fall, Hyponatremia Discharge Plan Visit Data *Final* Discharge Date/Time: 01/18/20 22:15 Chief Complaint: Fall Stated Complaint: FELL A FEW TIMES ED Provider: Heron Anderson Discharge Problem: CHI (closed head injury), Facial laceration, Contusion of scalp, Low back pain, Fall, Hyponatremia Patient Disposition: Admitted As Inpatient Condition: Good Discharge Instructions Interventions: ED Discharge Assessment Last Done: 01/18/20 22:15 Discharge Problem: Contusion of scalp Qualifiers: Encounter type: initial encounter Qualified Code(s): S00.03XA - Contusion of scalp, initial encounter Low back pain Qualifiers: Chronicity: chronic Back pain laterality: bilateral Sciatica presence: without sciatica Qualified Code(s): M54.5 - Low back pain Fall Qualifiers: Encounter type: initial encounter Qualified Code(s): W19.XXXA - Unspecified fall, initial encounter
[2020-01-18 17:28] LABS: Appearance Urine Clear (Clear); Bacteria Urine Automated 1+ (Negative); Bilirubin Urine Negative (Negative); Blood Urine Negative (Negative); Color Urine Yellow; Epithelial Cell Urine Auto 0-5 /lpf (0-5); Glucose Urine UA Negative (Negative); Ketones Urine Negative (Negative); Leukocyte Esterase Urine 2+ (Negative); Nitrite Urine Negative (Negative); Protein Urine Negative (Negative); RBC Urine Automated 0-4 /hpf (0-4); Specific Gravity Urine 1.017 (1.000-1.030); Urobilinogen Urine Negative (Negative); pH Urine 7.5 (4.5-7.5)
[2020-01-18] MEDS ORDERED: DICLOFENAC SOD 1% GEL 100 GM TUBE EXT STA (17:28)
[2020-01-18] MEDS ORDERED: TRAMADOL HCL 50 MG TABLET PO STA (17:47)
[2020-01-18] MEDS ORDERED: cefTRIAXone SODIUM 1,000 MG/50 ML BAG IV STA (17:47)
--- NOTE | 2020-01-18 19:53 | Emergency Department Note ---
ED Visit Note Received patient in signout. There is an attempt to place this patient in rehab without success. Case management is involved in the patient. The patient was discussed with them on any hospitalist as it was thought the patient is a fall risk if she goes back home. . : CHI (closed head injury) Qualifiers: Encounter type: initial encounter Qualified Code(s): S09.90XA - Unspecified injury of head, initial encounter Facial laceration Qualifiers: Encounter type: initial encounter Qualified Code(s): S01.81XA - Laceration without foreign body of other part of head, initial encounter Contusion of scalp Qualifiers: Encounter type: initial encounter Qualified Code(s): S00.03XA - Contusion of scalp, initial encounter Low back pain Qualifiers: Chronicity: chronic Back pain laterality: bilateral Sciatica presence: without sciatica Qualified Code(s): M54.5 - Low back pain Fall Qualifiers: Encounter type: initial encounter Qualified Code(s): W19.XXXA - Unspecified fall, initial encounter
--- NOTE | 2020-01-18 21:10 | History & Physical Report ---
Date of Service January 18, 2020 Assessment & Plan (1) UTI (urinary tract infection): Patient is an 89-year-old female past medical history of chronic UTI, rheumatoid arthritis, hx of pulmonary emboli on chronic a/c, anemia, chronic hyponatremia, hydronephrosis secondary to kidney stones which is been surgically corrected, CKD stage III a, chronic urinary incontinence, hyperlipidemia who presents at her family's insistence for evaluation status post fall at home where she sustained a head laceration and diagnosed with a urinary tract infection #Urinary tract infection Patient with a history of multiple urinary tract infections, this decreased in frequency status post her lithotripsy for her chronic kidney stones. Today on evaluation in the ED her UA was consistent with a urinary tract infection she was given ceftriaxone will continue antibiotic therapy while hospitalized and discharged on oral antibiotic recommend the patient follow-up with urology as an outpatient. Currently she is alert and oriented x3 however per reports she was confused previously likely secondary to this infection. Ceftriaxone Monitor fever curve Monitor daily CBC #Fall with closed head injury, and facial laceration Patient experienced a fall earlier this morning, likely secondary to confusion from urinary tract infection. Imaging studies in the ED were negative for acute intracranial abnormalities and/or fractures. While hospitalized will monitor for worsening of her condition especially given the fact she is on blood thinners. Patient is a fall risk, and will need inpatient evaluation for placement upon discharge. -Fall precautions -PT OT evaluation -Monitor for development of hematoma, or worsening or changes in mental status -neurochecks -Treat pain as indicated #Chronic anticoagulation secondary to hx of pulmonary emboli -Continue rivaroxaban 20 mg daily #Chronic urge incontinence with history of hydronephrosis secondary to kidney stones now status post lithotripsy -Pure wick -Continue Tamsulosin -Encourage hygiene #Hyperlipidemia -Continue atorvastatin 20 mg #Hypertension -Continue home lisinopril #History of chronic kidney disease Creatinine baseline on admission, -monitor daily BMP For changes -Avoid nephrotoxic medications #Anxiety and depression Patient anxious in the ED, and depressed about the current situation. Would consider outpatient psych evaluation or meeting with a counselor. Continue home meds -Duloxetine 20 mg every morning #Rheumatoid arthritis Continue prednisone -Continue sulfasalazine -Continue tramadol FENa: Heart healthy diet Code Status: Full code DVT PPX: Chronically anticoagulated with rivaroxaban continue while hospitalized PT/OT: Ordered Dispo: Likely will need SNF on discharge Obdulio Ridley MD PGY 2, FCM This chart was completed utilizing [employer] voice recognition software. Grammatical errors, random word insertions, pronoun errors, and in complete sentences are an occasional consequence of the system. Any questions or concerns about the content, text, or information contained within the body of this dictation should be addressed directly to the physician for clarification. (2) Fall: (3) Facial laceration: (4) CHI (closed head injury): (5) Pulmonary emboli: (6) Chronic kidney disease, stage 3a: (7) Urge incontinence of urine: (8) Anxiety: (9) Depression: (10) History of lithotripsy: (11) History of cataract surgery: (12) Tobacco use: (13) History of right hip hemiarthroplasty: (14) Hyperlipidemia: (15) Anticoagulated: (16) Rheumatoid arthritis: (17) HTN (hypertension): History of Present Illness Patient is an 89-year-old female past medical history of chronic UTI, rheumatoid arthritis, hx of pulmonary emboli on chronic a/c, anemia, chronic hyponatremia, hydronephrosis secondary to kidney stones which is been surgically corrected, CKD stage III a, chronic urinary incontinence, hyperlipidemia who presents at her family's insistence for evaluation status post fall at home where she sustained a head laceration and diagnosed with a urinary tract infection. Patient was in her usual state of health became off balance when the kitchen and sustained a fall, she had a laceration above her right eye in addition to bruise in the back of her head. Given the patient's history of pulmonary emboli and chronic anticoagulation she presented for rule out of significant bleeds. Patient reports chronic mild low back pain but reports no injury from the fall. The family contacted the family physician earlier today who advised to present to the ER for evaluation. Head CT demonstrated no acute intracranial abnormality, age-related atrophy and chronic small vessel change, chest x-ray d emonstrated emphysema and a right apical nodule, pelvis x-ray was negative, lumbar CT demonstrated degenerative changes, cervical CT demonstrated considerable degenerative changes as well. CBC demonstrated white count of 10.07, hemoglobin 11.8, platelets 273, INR 1.4, sodium 131, glucose 126, urine was positive for leuk esterase, and bacteria, all other lab values within normal limits. Patient specifically denies chest pressure, chest pain, shortness of breath, nausea, vomiting, diarrhea g, sensory changes, vision changes, hearing changes, headache, fever, chills. Given that the patient lives by her self, is experiencing a UTI, questionable confusion, and is a fall risk, The hospital service was consulted for admission forfurther monitoring and evaluation and treatment of her UTI. Primary Care Provider: Ben Schmidt Allergies Allergy/AdvReac Type Severity Reaction Status Date / Time Sulfa (Sulfonamide Allergy Intermediate Rash Verified 01/18/20 17:22 Antibiotics) [email or web address] [From Myrbetriq] AdvReac Intermediate hypertensio Verified 01/18/20 17:22 n nicotine AdvReac Mild PATCH-SKIN Verified 01/18/20 17:22 IRRITATION shrimp AdvReac Mild Photosensit Verified 01/18/20 17:22 ivity Home Medications Home Medications Medication Instructions Recorded Confirmed Type Centrum Silver Women 1 tab PO QAM 07/06/18 01/18/20 History atorvastatin 20 mg PO QAM 09/05/19 01/18/20 History cholecalciferol (vitamin D3) 2,000 unit PO QAM 09/05/19 01/18/20 History [Vitamin D3] duloxetine [Cymbalta] 20 mg PO QAM 09/05/19 01/18/20 History prednisone 5 mg PO QAM 09/05/19 01/18/20 History polyethylene glycol 3350 [Miralax] 17 g PO QAM PRN 09/28/19 01/18/20 History lisinopril 20 mg PO QAM 11/11/19 01/18/20 History acetaminophen [Tylenol Extra 1,000 mg PO TID 11/12/19 01/18/20 History Strength] tamsulosin 0.4 mg capsule 0.4 mg PO HS #30 cap 12/01/19 01/18/20 Rx Cbd Oil 1 ml PO HS 01/18/20 01/18/20 History acetaminophen 500 mg PO UD 01/18/20 01/18/20 History amoxicillin 500 mg PO Q12H #7 cap 01/18/20 Rx melatonin 6 mg PO HS 01/18/20 01/18/20 History rivaroxaban [Xarelto] 20 mg PO DAILY 01/18/20 01/18/20 History sulfasalazine 500 mg PO BID 01/18/20 01/18/20 History tramadol 50 mg PO AMHS 01/18/20 01/18/20 History Past Med/Surg History Medical History Anemia Anxiety (Chronic) Depression (Chronic) Glaucoma (Chronic) Hearing deficit (Chronic) [facility] [place] Hyperlipidemia (Chronic) Hyponatremia (Acute) Kidney stones (Chronic) Osteoarthritis (Chronic) Rheumatoid arthritis (Chronic) Surgical History Hip fracture requiring operative repair History of cataract surgery (Resolved) left and right History of colonoscopy (Resolved) History of cystoscopy WITH STENT History of lithotripsy (Resolved) x 2 History of tooth extraction (Resolved) Nausea and vomiting after administration of anesthetic agent Status post cystoscopy with ureteral stent placement 10/28/2019 [facility] Family History Father Hypertension Other No pertinent family history in first degree relatives Social History Preferred Language: Fijian Communication Ability: Effective Visual Impairment: No Limitations Sheeter Operator Required: No Beliefs That Will Affect Care: None marital status: / Current Living Situation: Alone Feels Safe at Home: Yes Smoking Status: Former smoker Tobacco Type: cigarettes ; Cigarettes Per Day: 20-40 ; Second Hand Exposure: Yes ( WAS A SMOKER) ; Hx Alcohol Use: Yes Alcohol type: hard liquor Alcohol Intake Frequency Comment: occasional, rare Hx Substance Use: No Review of Systems Review of Systems: All systems reviewed & are unremarkable except as noted in HPI & below Physical Exam Physical Exam: General: In no acute distress HEENT: Normocephalic, laceration above the right eye, sutures in place Neck: Normal to visual inspection, negative for lymphadenopathy, negative for tracheal deviation, negative for JVD Cardiac: Regular rate and rhythm, I did not appreciate significant murmurs rubs or gallops, normal S1, normal S2, negative pedal edema, negative calf tenderness Respiratory: Clear to auscultation bilaterally without significant wheezes, rales, rhonchi GI: Bowel sounds present, soft, nontender, nondistended MSK: Endorsing back pain, otherwise moves all extremities Neuro: Alert and oriented x4 Psych: Frustrated, otherwise cooperative with examination, normal affect Results & Data Results & Data ([facility]) Vital Signs (Past 12 Hours) Vital Signs Temp Pulse Pulse Resp BP BP Pulse Ox 01/18/20 19:30 85 18 184/87 H 93 01/18/20 19:01 89 14 207/75 H 95 01/18/20 18:32 92 H 19 172/88 H 95 01/18/20 17:30 87 22 168/85 H 96 01/18/20 17:00 85 20 174/89 H 98 01/18/20 16:59 85 15 174/89 H 93 01/18/20 16:15 89 20 164/82 H 92 01/18/20 15:08 37 C 97 H 18 134/75 94 Laboratory Results 01/18/20 01/18/20 01/18/20 Range/Units 17:11 16:12 16:12 WBC (4.8-10.8) K/uL RBC (4.2-5.4) M/uL Hgb (12.0-16.0) g/dL Hct (37-47) % MCV (80-100) fL MCH (25-34) pg MCHC (32-36) g/dL RDW Std Deviation (36.4-46.3) fL RDW Coeff of Chiara (11.5-14.5) % Plt Count (130-400) K/uL MPV (7.4-10.4) fL Immature Gran % (Auto) % Neut % (Auto) % Lymph % (Auto) % [place] % (Auto) % Eos % (Auto) % Baso % (Auto) % Immature Gran # (Auto) (0.00-0.02) K/uL Neut # (Auto) (1.4-6.5) K/uL Lymph # (Auto) (1.2-3.4) K/uL [place] # (Auto) (0.11-0.59) K/uL Eos # (Auto) (0-0.5) K/uL Baso # (Auto) (0-0.2) K/uL Absolute Nucleated RBC (0-0) K/uL Nucleated RBC % (auto) % PT 14.1 H (9.0-12.0) Seconds INR 1.4 H (0.9-1.1) Sodium 131 L (136-145) mmol/L Potassium 4.8 (3.5-5.1) mmol/L Chloride 100 (98-107) mmol/L Carbon Dioxide 26 (21-32) mmol/L Anion Gap 5.0 (3-11) BUN 23 H (7-18) mg/dl Creatinine 0.79 (0.6-1.2) mg/dl Est Cr Clr Drug Dosing 35.6 ml/min Est GFR ( Amer) 78.0 Est GFR (Non-Af Amer) 67.3 BUN/Creatinine Ratio 28.7 H (10-20) Glucose 126 H (70-99) mg/dl Calcium 8.6 (8.5-10.1) mg/dl Total Bilirubin 0.4 (0.2-1) mg/dl AST 17 (15-37) U/L ALT 18 (12-78) U/L Alkaline Phosphatase 52 (45-117) U/L Troponin I 0.016 (0-0.045) ng/ml Total Protein 6.3 L (6.4-8.2) gm/dl Albumin 3.4 (3.4-5.0) gm/dl Globulin 2.9 (2.5-4.0) gm/dl Albumin/Globulin Ratio 1.2 (0.9-2) Urine Color Yellow Urine Appearance Clear (Clear) Urine pH 7.5 (4.5-7.5) Ur Specific [place] 1.017 (1.000-1.030) Urine Protein Negative (Negative) Urine Glucose (UA) Negative (Negative) Urine Ketones Negative (Negative) Urine Blood Negative (Negative) Urine Nitrite Negative (Negative) Urine Bilirubin Negative (Negative) Urine Urobilinogen Negative (Negative) Ur Leukocyte Esterase 2+ H (Negative) Urine WBC (Auto) 10-30 H (0-5) /hpf Urine RBC (Auto) 0-4 (0-4) /hpf U Hyaline Cast (Auto) 1-5 (0-5) /lpf U Epithel Cells (Auto) 0-5 (0-5) /lpf Urine Bacteria (Auto) 1+ H (Negative) 01/18/20 Range/Units 16:12 WBC 10.07 (4.8-10.8) K/uL RBC 3.45 L (4.2-5.4) M/uL Hgb 11.8 L (12.0-16.0) g/dL Hct 34.9 L (37-47) % MCV 101.2 H (80-100) fL MCH 34.2 H (25-34) pg MCHC 33.8 (32-36) g/dL RDW Std Deviation 53.9 H (36.4-46.3) fL RDW Coeff of Chiara 14.8 H (11.5-14.5) % Plt Count 273 (130-400) K/uL MPV 9.0 (7.4-10.4) fL Immature Gran % (Auto) 0.3 % Neut % (Auto) 82.6 % Lymph % (Auto) 9.0 % [place] % (Auto) 7.9 % Eos % (Auto) 0.1 % Baso % (Auto) 0.1 % Immature Gran # (Auto) 0.03 H (0.00-0.02) K/uL Neut # (Auto) 8.31 H (1.4-6.5) K/uL Lymph # (Auto) 0.91 L (1.2-3.4) K/uL [place] # (Auto) 0.80 H (0.11-0.59) K/uL Eos # (Auto) 0.01 (0-0.5) K/uL Baso # (Auto) 0.01 (0-0.2) K/uL Absolute Nucleated RBC 0.02 H (0-0) K/uL Nucleated RBC % (auto) 0.2 % PT (9.0-12.0) Seconds INR (0.9-1.1) Sodium (136-145) mmol/L Potassium (3.5-5.1) mmol/L Chloride (98-107) mmol/L Carbon Dioxide (21-32) mmol/L Anion Gap (3-11) BUN (7-18) mg/dl Creatinine (0.6-1.2) mg/dl Est Cr Clr Drug Dosing ml/min Est GFR ( Amer) Est GFR (Non-Af Amer) BUN/Creatinine Ratio (10-20) Glucose (70-99) mg/dl Calcium (8.5-10.1) mg/dl Total Bilirubin (0.2-1) mg/dl AST (15-37) U/L ALT (12-78) U/L Alkaline Phosphatase (45-117) U/L Troponin I (0-0.045) ng/ml Total Protein (6.4-8.2) gm/dl Albumin (3.4-5.0) gm/dl Globulin (2.5-4.0) gm/dl Albumin/Globulin Ratio (0.9-2) Urine Color Urine Appearance (Clear) Urine pH (4.5-7.5) Ur Specific [place] (1.000-1.030) Urine Protein (Negative) Urine Glucose (UA) (Negative) Urine Ketones (Negative) Urine Blood (Negative) Urine Nitrite (Negative) Urine Bilirubin (Negative) Urine Urobilinogen (Negative) Ur Leukocyte Esterase (Negative) Urine WBC (Auto) (0-5) /hpf Urine RBC (Auto) (0-4) /hpf U Hyaline Cast (Auto) (0-5) /lpf U Epithel Cells (Auto) (0-5) /lpf Urine Bacteria (Auto) (Negative) Code Status & VTE Plan Code Status Full Code Supervising Physician Co-Signing Physician Notes patient seen and examined, chart reviewed, case discussed with Dr. Ridley and I agree with his assessment and plan as documented above. Briefly, patient is an 89yo C female living independently s/p mechanical fall today in her kitchen with associated head trauma. Patient with difficulty ambulating, family requesting short term placement in a rehabilitation facility On exam she is afebrile, hypertensive otherwise stable Skin - small laceration over right eye s/p repair, no active bleeding, scattered bruising on extremities HEENT - mild swelling over right eye and posterior head, PERRL, EOMI, facial bones stable, MMM, neck supple and nontender Heart - +S1/S2, regular Lungs - CTA Abd - +BS, soft, NT/ND Ext - No edema Labs and images reviewed. No acute fracture Assessment/Plan - 89yo C female s/p mechanical fall in the home with associated head trauma. Patient on anticoagulation with Rivaroxaban for history of PE. CT head with no acute bleed. She is neurologically intact with no deficits. -Monitor overnight, neuro checks -PT/OT/Case management assistance appreciated -Treatment of UTI -Remainder of plan as above Resident Activity Tracking Resident Involvement: Resident Care Provided Care Provided: Adult Hospital Medicine (1) Rheumatoid arthritis Rheumatoid arthritis location: unspecified site Rheumatoid factor presence: unspecified presence Qualified Code(s): M06.9 - Rheumatoid arthritis, unspecified (2) CHI (closed head injury) Encounter type: initial encounter Qualified Code(s): S09.90XA - Unspecified injury of head, initial encounter (3) Depression Active/Remission status: remission status unspecified Depression Type: major depressive disorder Major depression recurrence: recurrent Qualified Code(s): F33.9 - Major depressive disorder, recurrent, unspecified (4) Hyperlipidemia Hyperlipidemia type: unspecified Qualified Code(s): E78.5 - Hyperlipidemia, unspecified (5) Facial laceration Encounter type: initial encounter Qualified Code(s): S01.81XA - Laceration without foreign body of other part of head, initial encounter (6) Pulmonary emboli Acute cor pulmonale presence: unspecified Chronicity: acute Pulmonary embolism type: other Qualified Code(s): I26.99 - Other pulmonary embolism without acute cor pulmonale (7) Fall Encounter type: initial encounter Qualified Code(s): W19.XXXA - Unspecified fall, initial encounter
[2020-01-18] MEDS ORDERED: ONDANSETRON INJ 2 MG/ML 2 ML VIAL IV PRN (21:25)
[2020-01-18] MEDS ORDERED: ALUMINUM/MAGNESIUM SUSP 30 ML UDC PO PRN (21:25)
[2020-01-18] MEDS ORDERED: MAGNESIUM HYDROXIDE SUSP 30 ML UDC PO PRN (21:25)
[2020-01-18] MEDS ORDERED: ACETAMINOPHEN 325 MG TAB PO PRN (21:25)
[2020-01-18] MEDS ORDERED: POLYETHYLENE (MIRALAX) 17 GM PACK PO STA (22:22)
[2020-01-18] MEDS: ACETAMINOPHEN 500 MG TAB PO PRN (22:58)
--- NOTE | 2020-01-18 23:34 | Billing Data ---
Date of Service January 18, 2020 Coding Level of Care Code 22018 Initial Inpt Care Lvl 3
[2020-01-19] MEDS: sulfaSALAzine 500 MG TABEC PO SCH ×3 (00:42→21:46)
[2020-01-19] MEDS: MoRPHine SULFATE 2 MG/ML CARP IV PRN ×4 (00:42→19:23)
[2020-01-19] MEDS ORDERED: PHENAZOPYRIDINE HCL 200 MG TAB PO STA (03:26)
[2020-01-19 05:53] LABS: Basophils # (auto) 0.03 K/uL (0-0.2); Basophils % (auto) 0.5 %; Eosinophils # (auto) 0.07 K/uL (0-0.5); Eosinophils % (auto) 1.1 %; Hematocrit (blood only) 35.5 % (37-47); Hemoglobin 11.8 g/dL (12.0-16.0); Immature Granulocytes # (auto) 0.02 K/uL (0.00-0.02); Immature Granulocytes % (auto) 0.3 %; Lymphocytes # (auto) 1.36 K/uL (1.2-3.4); Lymphocytes % (auto) 20.7 %; Mean Corpuscular Hemoglobin 33.8 pg (25-34); Mean Corpuscular Hgb Conc 33.2 g/dL (32-36); Mean Corpuscular Volume 101.7 fL (80-100); Mean Platelet Volume 9.4 fL (7.4-10.4); Monocytes # (auto) 0.86 K/uL (0.11-0.59); Monocytes % (auto) 13.1 %; Neutrophils # (auto) 4.22 K/uL (1.4-6.5); Neutrophils % (auto) 64.3 %; Platelet Count 262 K/uL (130-400); RDW Standard Deviation 55.1 fL (36.4-46.3); Red Blood Count 3.49 M/uL (4.2-5.4); White Blood Count 6.56 K/uL (4.8-10.8)
[2020-01-19 06:30] LABS: BUN Creatinine Ratio 23.7 (10-20); Calcium 8.3 mg/dl (8.5-10.1); Creatinine Clr Calc Pharmacy 40.6 ml/min; Est GFR (African American) 88.8; Est GFR (Non-African American) 76.6; Potassium 4.4 mmol/L (3.5-5.1)
[2020-01-19] MEDS: ACETAMINOPHEN 500 MG TAB PO PRN ×2 (07:44→21:45)
--- NOTE | 2020-01-19 08:02 | Hospitalist Progress Note ---
Date of Service January 19, 2020 Assessment & Plan (1) Fall: This pt had a mechanical fall at home with closed head injury without changes seen on imaging, pt is chronically anticoagulated Pt had a facial abrasion and contusion CT head 01/18/20 Impression:No acute intracranial abnormality. Age-related atrophy and chronic small vessel change. CT neck 01/18/20 IMPRESSION: Considerable degenerative change. No acute abnormality. CT LS spine 01/18/20 IMPRESSION: Considerable degenerative change. No acute process. Pelvis x ray IMPRESSION: No acute process post total right hip arthroplasty. (2) UTI (urinary tract infection): (3) Pulmonary emboli: Pt is chronically anticoagulated (4) Chronic kidney disease, stage 3a: Patient has been stable (5) Urge incontinence of urine: (6) Anxiety: (7) Depression: duloxetine (8) Tobacco use: (9) History of right hip hemiarthroplasty: (10) Hyperlipidemia: continues on atorvastatin (11) Rheumatoid arthritis: pt is on chronic steroids and sulfasalazine, currently no signs or symptoms for [place]'s crisis (12) HTN (hypertension): Admission and Anticipated Discharge Date Admission Date: January 18, 2020 Subjective Patient is very pleasant she is participating in physical therapy she is doing quite well today. She is found have enterococcal UTI present on admission. She did have a fall and hit her head without some substantial residual effects Review of Systems Review of Systems: Mild distress and fatigue no headache, blurry or double vision does have some bruising to her right forehead and cheek no speech or swallowing issues no chest pain, pressure or palpitations no shortness of breath, cough or wheezes no abdominal pain, nausea or vomiting, diarrhea or constipation no dysuria, hematuria or frequency but is having incontinence (although found of UTI present on admission) no focal joint pain or swelling no back pain, CVA tenderness or radicular pain no bruising, bleeding or rashes no focal signs of weakness or numbness or altered sensation no complaints or anxiety or depression Physical Exam Physical Exam: The patient appeared well nourished and normally developed. Vital signs as documented. Head exam is normocephalic bruising to her right face, no scleral icterus Neck is without JVD, thyromegaly, or carotid bruits. Lungs are clear to auscultation, no focal loss of breath sounds Cardiac exam, Rhythm is regular.. No murmurs, rubs or gallops. Abdominal exam reveals normal bowel sounds, soft non tender, no masses Extremities are nonedematous and both pedal pulses are normal. Neurologic exam is alert and oriented, no focal loss of strength or sensation Skin is without bruises or rashes Psychologically is without concerns for anxiety or depression Results & Data Results & Data ([facility]) Vital Signs (Past 12 Hours) Vital Signs Temp Pulse Pulse Resp BP BP Pulse Ox 01/19/20 07:21 98.1 F 84 16 186/75 H 96 01/18/20 22:46 97.9 F 85 16 159/76 H 91 01/18/20 22:00 84 18 120/59 L 92 01/18/20 21:30 87 16 124/63 94 01/18/20 21:01 87 18 165/81 H 93 PG Care Time/CCT Total # of Minutes Spent Total Time Spent with Patient: Total time spent is greater than 50% in coordination of care (as documented) at patient's floor/unit and/or counseling patient: Coding Level of Care Code 83343 Subseq Hosp Care Lvl 2 Diagnoses Fall W19.XXXA Encounter type: initial encounter UTI (urinary tract infection) N39.0 Pulmonary emboli I26.99 Acute cor pulmonale presence: unspecified Chronicity: acute Pulmonary embolism type: other Chronic kidney disease, stage 3a N18.3 Urge incontinence of urine N39.41 Anxiety F41.9 Depression F33.9 Active/Remission status: remission status unspecified Depression Type: major depressive disorder Major depression recurrence: recurrent Tobacco use Z72.0 History of right hip hemiarthroplasty Z96.641 Hyperlipidemia E78.5 Hyperlipidemia type: unspecified Rheumatoid arthritis M06.9 Rheumatoid arthritis location: unspecified site Rheumatoid factor presence: unspecified presence HTN (hypertension) I10 (1) Rheumatoid arthritis Rheumatoid arthritis location: unspecified site Rheumatoid factor presence: unspecified presence Qualified Code(s): M06.9 - Rheumatoid arthritis, unspecified (2) Depression Active/Remission status: remission status unspecified Depression Type: major depressive disorder Major depression recurrence: recurrent Qualified Code(s): F33.9 - Major depressive disorder, recurrent, unspecified (3) Hyperlipidemia Hyperlipidemia type: unspecified Qualified Code(s): E78.5 - Hyperlipidemia, unspecified (4) Pulmonary emboli Acute cor pulmonale presence: unspecified Chronicity: acute Pulmonary embolism type: other Qualified Code(s): I26.99 - Other pulmonary embolism without acute cor pulmonale (5) Fall Encounter type: initial encounter Qualified Code(s): W19.XXXA - Unspecified fall, initial encounter
--- NOTE | 2020-01-19 08:24 | Electrocardiogram Report ---
Test Reason : Blood Pressure : / mmHG Vent. Rate : 089 BPM Atrial Rate : 089 BPM P-R Int : 114 ms QRS Dur : 086 ms QT Int : 360 ms P-R-T Axes : 051 035 112 degrees QTc Int : 438 ms Normal sinus rhythm Poor R wave progression, consider anterior OK vs. lead placement vs. LVH Chronic Nonspecific ST and T wave abnormality Lateral leads Abnormal ECG When compared with ECG of 12-DEC-2019 10:02, No significant change was found Confirmed by Jed Gonzales ([id number]) on 01/19/2020 8:24:05 AM Referred By: REFERRED SELF Confirmed By:Jed Gonzales
[2020-01-19] MEDS: DULOXETINE HCL 20 MG CAP PO SCH (08:34)
[2020-01-19] MEDS: predniSONE 5 MG TAB PO SCH (08:35)
[2020-01-19] MEDS: ATORVASTATIN 20 MG TAB PO SCH (08:35)
[2020-01-19] MEDS: CHOLECALCIFEROL 1,000 UNITS 25 MCG TAB PO SCH (08:35)
[2020-01-19] MEDS: RIVAROXABAN 20 MG TAB PO SCH (08:35)
[2020-01-19] MEDS: CEROVITE ADV FORMULA TAB PO SCH (08:35)
[2020-01-19] MEDS: lisinopriL 20 MG TAB PO SCH (08:36)
[2020-01-19] MEDS: TRAMADOL HCL 50 MG TABLET PO SCH ×2 (08:39→21:45)
[2020-01-19] MEDS: POLYETHYLENE (MIRALAX) 17 GM PACK PO SCH ×2 (08:40→21:45)
[2020-01-19] MEDS: AMOXICILLIN 500 MG CAP PO SCH ×2 (14:54→23:47)
[2020-01-19] MEDS ORDERED: cefTRIAXone SODIUM 1,000 MG in DEXTROSE 5% 50 ML IV SCH (17:00)
[2020-01-19] MEDS ORDERED: CBD OIL PO SCH (21:00)
[2020-01-19] MEDS ORDERED: MELATONIN 3 MG TAB PO SCH (21:00)
[2020-01-19] MEDS ORDERED: TAMSULOSIN HCL 0.4 MG CAP PO SCH (21:00)
[2020-01-20] MEDS: MoRPHine SULFATE 2 MG/ML CARP IV PRN ×2 (05:27→12:20)
[2020-01-20] MEDS: ACETAMINOPHEN 500 MG TAB PO PRN ×2 (06:40→15:21)
[2020-01-20] MEDS: RIVAROXABAN 20 MG TAB PO SCH (08:48)
[2020-01-20] MEDS: CEROVITE ADV FORMULA TAB PO SCH (08:48)
[2020-01-20] MEDS: lisinopriL 20 MG TAB PO SCH (08:48)
[2020-01-20] MEDS: ATORVASTATIN 20 MG TAB PO SCH (08:48)
[2020-01-20] MEDS: CHOLECALCIFEROL 1,000 UNITS 25 MCG TAB PO SCH (08:48)
[2020-01-20] MEDS: DULOXETINE HCL 20 MG CAP PO SCH (08:48)
[2020-01-20] MEDS: AMOXICILLIN 500 MG CAP PO SCH (08:48)
[2020-01-20] MEDS: TRAMADOL HCL 50 MG TABLET PO SCH (08:48)
[2020-01-20] MEDS: sulfaSALAzine 500 MG TABEC PO SCH (08:48)
[2020-01-20] MEDS: POLYETHYLENE (MIRALAX) 17 GM PACK PO SCH (08:49)
[2020-01-20] MEDS: predniSONE 5 MG TAB PO SCH (08:49)
--- NOTE | 2020-01-20 15:12 | Discharge Summary ---
Date of Service January 20, 2020 Principal Diagnosis Mechanical fall closed head injury Enterococcus UTI present on admission Discharge Exam The patient appeared well Vital signs as documented. Lungs are clear to auscultation and appear unlabored Cardiac exam, Rhythm is regular.. No murmurs, rubs or gallops. Abdominal exam reveals normal bowel sounds, soft non tender, no masses Extremities are nonedematous and both pedal pulses are normal. Neurologic exam is alert and oriented, no focal loss of strength or sensation Skin is without bruises or rashes Psychologically is without concerns for anxiety or depression Discharge Data Allergies Allergy/AdvReac Type Severity Reaction Status Date / Time Sulfa (Sulfonamide Allergy Intermediate Rash Verified 01/18/20 17:22 Antibiotics) mirabegron [From Myrbetriq] AdvReac Intermediate hypertensio Verified 01/18/20 17:22 n nicotine AdvReac Mild PATCH-SKIN Verified 01/18/20 17:22 IRRITATION shrimp AdvReac Mild Photosensit Verified 01/18/20 17:22 ivity Consultations 01/18/20 19:43 ED Decision to Admit Stat 01/18/20 21:31 Consult Case Management - Discharge Planning Routine Ordered Studies 01/18/20 15:27 CT cervical spine wo con Stat CT lumbar spine wo con Stat 01/18/20 15:28 CT head/brain wo con Stat Hospital Course (1) Fall: This pt had a mechanical fall at home with closed head injury without changes seen on imaging, pt is chronically anticoagulated Pt had a facial abrasion and contusion. Patient's son states the patient has been declining at home significantly over the last few weeks. The son states the patient's home is not set up for handicap and is difficult for her to navigate about and is his belief that the patient will require long-term placement in the near future if not with this particular stay CT head 01/18/20 Impression:No acute intracranial abnormality. Age-related atrophy and chronic small vessel change. CT neck 01/18/20 IMPRESSION: Considerable degenerative change. No acute abnormality. CT LS spine 01/18/20 IMPRESSION: Considerable degenerative change. No acute process. Pelvis x ray IMPRESSION: No acute process post total right hip arthroplasty. (2) UTI (urinary tract infection): Patient is enterococcal UTI sensitive to penicillins she will be treated with amoxicillin p.o. Since the patient has previous urological procedures performed and on a November 2019 CT scan persistent mild to moderate hydronephrosis and left-sided stent is intact recommendation would be to reculture urine once completing course of treatment and consider urological referral plus minus recurrent imaging. Given the patient stable renal function on serology would be unlikely that she has significant obstructive issues but changing of her stent may be required to eradicate this infection (3) Pulmonary emboli: Pt is chronically anticoagulated (4) Chronic kidney disease, stage 3a: Patient has been stable (5) Urge incontinence of urine: (6) Anxiety: (7) Depression: duloxetine (8) Tobacco use: (9) History of right hip hemiarthroplasty: (10) Hyperlipidemia: continues on atorvastatin (11) Rheumatoid arthritis: pt is on chronic steroids and sulfasalazine, currently no signs or symptoms for [place]'s crisis (12) HTN (hypertension): Total Time Total Time Spent Total Time Spent (In Minutes): It required greater than 30 minutes to prepare this patient for discharge Discharge Plan Discharge Items Patient Disposition: Transfer Longterm Fac Reason For Visit: UTI,FALL Discharge Diagnosis: mechanical fall enterococcal uti Condition on Discharge: Good Activity: Resume your previous activity Non-emergency contact: Primary Care Provider Call non-emergency contact if: you have any medication questions and your symptoms worsen Follow-up/Referrals: Ben Schmidt [Primary Care Provider] - Diet: Regular Addtl Attending Provider Instructions: please complete antibiotics for uti rehab Pending Studies at Discharge: No Stand-Alone Forms: My [facility] Skilled Items Patient informed of condition?: Yes DNR: No Discharge Level of Care: Acute rehab Communicable Disease: No Discharge Prognosis: Stable Lines: None Urinary Catheter: No Medications and DC Order Prescriptions: New amoxicillin 500 mg capsule 500 mg PO Q12H Qty: 7 RF: 0 amoxicillin 500 mg Capsule 500 mg PO Q12 Qty: 7 RF: 0 Continued tamsulosin 0.4 mg capsule 0.4 mg PO HS Qty: 30 RF: 3 polyethylene glycol 3350 [Miralax] 17 gram Powder In Packet 17 g PO QAM PRN (Reason: Constipation) RF: 0 lisinopril 20 mg Tablet 20 mg PO QAM RF: 0 Xarelto 20 mg tablet 20 mg PO DAILY RF: 0 sulfasalazine 500 mg tablet,delayed release (DR/EC) 500 mg PO BID RF: 0 melatonin 3 mg Tablet 6 mg PO HS RF: 0 tramadol 50 mg tablet 50 mg PO AMHS RF: 0 acetaminophen 500 mg Tablet 500 mg PO UD RF: 0 Cbd Oil 1 ml PO HS RF: 0 Centrum Silver Women 8 mg iron-400 mcg-300 mcg Tablet 1 tab PO QAM RF: 0 prednisone 10 mg tablet 5 mg PO QAM RF: 0 atorvastatin 20 mg tablet 20 mg PO QAM RF: 0 duloxetine [Cymbalta] 20 mg capsule,delayed release(DR/EC) 20 mg PO QAM RF: 0 cholecalciferol (vitamin D3) [Vitamin D3] 50 mcg (2,000 unit) Capsule 2,000 unit PO QAM RF: 0 acetaminophen [Tylenol Extra Strength] 500 mg Tablet 1,000 mg PO TID RF: 0 Discharge Orders: Discharge Order (Routine); Ordered 01/20/20 Ordered By: Anibal Pelayo Admission Data Admit Date/Time: 01/18/20 21:36 Attending Provider: Anibal Pelayo Admit Provider: Obdulio Ridley I. Primary Care Provider: Ben Schmidt Other Providers: Earline Ridley ; Aneesh Stout ; Kofi Rausch at [facility] Other Interventions: Discharge Summary Assessment (RN) Last Done: 01/20/20 14:49 Coding Level of Care Code D/C Day Management >30 mins Diagnoses Fall W19.XXXA Encounter type: initial encounter UTI (urinary tract infection) N39.0 Pulmonary emboli I26.99 Acute cor pulmonale presence: unspecified Chronicity: acute Pulmonary embolism type: other Chronic kidney disease, stage 3a N18.3 Urge incontinence of urine N39.41 Anxiety F41.9 Depression F33.9 Depression Type: major depressive disorder Major depression recurrence: recurrent Active/Remission status: remission status unspecified Tobacco use Z72.0 History of right hip hemiarthroplasty Z96.641 Hyperlipidemia E78.5 Hyperlipidemia type: unspecified Rheumatoid arthritis M06.9 Rheumatoid arthritis location: unspecified site Rheumatoid factor presence: unspecified presence HTN (hypertension) I10
== END 2020-01-20 15:35 | DRG 690 ==
LOC: ED 15:07 → SUATTDRO 21:36 → 3E 21:36

== ENCOUNTER 2020-02-28 06:48 | Inpatient (IN) ==
[2020-02-28] MEDS ORDERED: ACETAMINOPHEN 1,000 MG/100 ML VIAL IV STA (06:54)
[2020-02-28] MEDS ORDERED: LIDOCAINE 5% 1 PATCH TD STA (06:54)
[2020-02-28] MEDS ORDERED: SODIUM CHLORIDE 0.9% 1000ML 500 ML IV ONE (06:55)
--- NOTE | 2020-02-28 07:06 | Emergency Department Note ---
History of Present Illness General Chief complaint: Hip Pain Stated complaint: R hip pain Time Seen by Provider: 02/28/20 06:50 Source: patient, family, EMS, RN notes reviewed and old records reviewed Mode of arrival: EMS Limitations: no limitations History of Present Illness Provider complaint: Rt hip pain Onset (ago): hour(s) greater than 10 Location: lower extremity and right Radiation: non-radiation Severity: severe Pain Consistency: + colicky Maximum Pain Intensity: 10 Current Pain Intensity: 10 Quality: + burning Relieved By: + immobilization Exacerbated By: + movement Associated symptoms: + denies other symptoms Treatments prior to arrival: other (Tramadol, acetaminophen) Is an 89-year-old female who presents emergency department complaining of severe right hip pain. The patient has had a hip replacement and has been in rehab in December for the hip. Both she and family report that the patient's hip began hurting last evening. She took Tylenol as well as Ultram for the hip without any relief of the pain. She describes the hip is burning with radiation down her leg. She is on Xarelto. Home Medications Home Medications Medication Instructions Recorded Confirmed Type Centrum Silver Women 1 tab PO QAM 07/06/18 02/28/20 History atorvastatin 20 mg PO QAM 09/05/19 02/28/20 History cholecalciferol (vitamin D3) 2,000 unit PO QAM 09/05/19 02/28/20 History [Vitamin D3] duloxetine [Cymbalta] 20 mg PO QAM 09/05/19 02/28/20 History prednisone 5 mg PO QAM 09/05/19 02/28/20 History polyethylene glycol 3350 [Miralax] 17 g PO QAM PRN 09/28/19 02/28/20 History lisinopril 20 mg PO QAM 11/11/19 02/28/20 History acetaminophen [Tylenol Extra 1,000 mg PO TID 11/12/19 02/28/20 History Strength] tamsulosin 0.4 mg capsule 0.4 mg PO HS #30 cap 12/01/19 02/28/20 Rx Cbd Oil 1 ml PO HS 01/18/20 02/28/20 History Xarelto 20 mg PO QAM 01/18/20 02/28/20 History acetaminophen 500 mg PO UD 01/18/20 02/28/20 History melatonin 6 mg PO HS 01/18/20 02/28/20 History sulfasalazine 500 mg PO BID 01/18/20 02/28/20 History tramadol 50 mg PO AMHS 01/18/20 02/28/20 History nitrofurantoin macrocrystal 50 mg 50 mg PO HS #90 cap 02/15/20 02/28/20 Rx capsule fluconazole 100 mg tablet 100 mg PO DAILY #3 tab 02/20/20 02/28/20 Rx aspirin 81 mg PO BID 02/28/20 02/28/20 History Allergies Allergy/AdvReac Type Severity Reaction Status Date / Time Sulfa (Sulfonamide Allergy Intermediate Rash Verified 02/28/20 08:00 Antibiotics) [email or web address] [From Myrbetriq] AdvReac Intermediate hypertensio Verified 02/28/20 08:00 n nicotine AdvReac Mild PATCH-SKIN Verified 02/28/20 08:00 IRRITATION shrimp AdvReac Mild Photosensit Verified 02/28/20 08:00 ivity Past Med/Surg History Medical History Anemia Anxiety Depression Glaucoma (Chronic) Hearing deficit (Chronic) BL ROMERO Hyperlipidemia (Chronic) Hyponatremia Kidney stones (Chronic) Osteoarthritis (Chronic) Rheumatoid arthritis (Chronic) Surgical History Hip fracture requiring operative repair History of colonoscopy (Resolved) History of cystoscopy WITH STENT History of tooth extraction (Resolved) Nausea and vomiting after administration of anesthetic agent Status post cystoscopy with ureteral stent placement 10/28/2019 [facility] Family History Father Hypertension Other No pertinent family history in first degree relatives Social History Preferred Language: Maltese Communication Ability: Effective Visual Impairment: No Limitations [employer] Required: No Beliefs That Will Affect Care: None marital status: / Current Living Situation: Alone Other Information That Helps Us Care for You: No Feels Safe at Home: Yes Safety Concerns: Feels Safe At This Time Smoking Status: Former smoker Tobacco Type: cigarettes ; Cigarettes Per Day: 20-40 ; Do You Dip or Chew Tobacco: No ; Second Hand Exposure: No ; Tobacco C essation Education Requested by Patient: No Hx Alcohol Use: Yes Alcohol type: wine Alcohol Intake Frequency Comment: occasional, rare Hx Substance Use: No Review of Systems A total of 10 systems reviewed and were otherwise negative Physical Exam Vital Signs Vital Signs - 24 hr 02/28/20 06:52 02/28/20 07:43 02/28/20 08:29 Temperature 36.4 C L Temperature Source Oral Pulse Rate 68 Pulse Rate [Left Finger] 90 85 Pulse Rhythm [Left Finger] Respiratory Rate 20 20 18 Respiratory Effort / Characteristics Respiratory Depth Respiratory Pattern Blood Pressure 196/101 H Blood Pressure [Right Arm] 202/94 H 144/77 H Blood Pressure Mean 132 Blood Pressure Mean [Right Arm] 130 99 Pulse Oximetry 96 96 95 Oxygen Delivery Method Room Air Room Air Room Air Sepsis Recent Fever Within 48 Hours No Sepsis Action Taken by Nursing No Action Required 02/28/20 09:05 02/28/20 11:00 Temperature Temperature Source Pulse Rate Pulse Rate [Left Finger] 86 83 Pulse Rhythm [Left Finger] Regular Respiratory Rate 18 17 Respiratory Effort / Characteristics Non-Labored Spontaneous Respiratory Depth Normal Respiratory Pattern Regular Blood Pressure Blood Pressure [Right Arm] 133/65 147/73 H Blood Pressure Mean Blood Pressure Mean [Right Arm] 87 97 Pulse Oximetry 91 95 Oxygen Delivery Method Room Air Room Air Sepsis Recent Fever Within 48 Hours Sepsis Action Taken by Nursing VITAL SIGNS - Vital signs and nursing notes were reviewed. GENERAL - 89-year-old female appearing stated age who is in moderate distress. Communicates well with provider and answers questions appropriately. SKIN - Without rashes. HEAD - NC/AT. EYES - PERRL with EOMI bilaterally. Sclera anicteric. Palpebral conjunctiva pink and moist with no injection noted. EARS - No deformities of external structures noted on gross examination bila terally. No pain elicited with palpation of the tragus bilaterally. External auditory canals without discharge or otorrhea. Tympanic membranes pearly brice without retraction or bulging. No fluid or purulent material visualized behind the TM. Handle of malleus, umbo, cone of light, pars tensa/flaccid all easily visualized. NOSE - Midline and without cyanosis. No epistaxis or purulent drainage noted. Septum midline without deviation or septal hematoma noted. MOUTH/OROPHARYNX - Without perioral cyanosis. Buccal mucosa pink and moist and without leukoplakia. Tongue midline with equal elevation of palate bilaterally. No tonsillar hypertrophy, erythema, or exudates noted. dentition noted. NECK - Neck with FROM. Supple to palpation. lymphadenopathy noted. No nuchal rigidity. LUNGS - Chest wall symmetric without accessory muscle use, intercostals retractions, or central cyanosis. Normal vesicular breath sounds CTA B/L. No wheezes, rales, or rhonchi appreciated. CARDIAC - RRR with S1/S2. No murmur, rubs, or gallops appreciated. ABDOMEN - Abdominal contour without pulsations or visible masses. BS normoactive all four quadrants. No tenderness, palpable masses, hepatosplenomegaly, or ascites noted. EXTREMITIES - No clubbing or peripheral cyanosis. No pretibial edema present. +3/5 radial, posterior tibial, and dorsalis pedis pulses palpated throughout. +5/5 strength noted in UE/LE bilaterally., Has Good ROM Rt hip tender to Rt SI joint. NEUROLOGIC - Cranial nerves II through XII grossly intact. Sensory intact to light touch throughout. Patellar reflexes +2/4. PSYCH - A&Ox3 and cooperates fully with examiner. Pt is very pleasant and interacts well with examiner. Course Administered Medications Hydromorphone HCl (Dilaudid) 0.25 mg IV Q15M PRN PRN Reason: Pain Stop: 03/13/20 06:53 Last Admin: 02/28/20 08:34 Dose: 0.25 mg Documented by: [id number] Admin: 02/28/20 08:14 Dose: 0.25 mg Documented by: [id number] Admin: 02/28/20 07:45 Dose: 0.25 mg Documented by: [id number] Admin: 02/28/20 07:23 Dose: 0.25 mg Documented by: [id number] Discontinued Medications Acetaminophen (Ofirmev) 1,000 mg in 100 mls @ 400 mls/hr IV NOW STA Stop: 02/28/20 07:08 Last Infusion: 02/28/20 08:12 Dose: 0 mls/hr Documented by: [id number] Admin: 02/28/20 07:40 Dose: 400 mls/hr Documented by: [id number] Sodium Chloride (Nss 1000ml) 500 mls @ 999 mls/hr IV .Q31M ONE Stop: 02/28/20 07:25 Last Infusion: 02/28/20 08:13 Dose: 0 mls/hr Documented by: [id number] Admin: 02/28/20 07:41 Dose: 999 mls/hr Documented by: [id number] Lidocaine (Lidoderm 5%) 1 patch TD NOW STA Stop: 02/28/20 06:55 Last Admin: 02/28/20 07:41 Dose: 1 patch Documented by: [id number] Medical Decision Making Differential Diagnosis Fracture, subluxation, dislocation, contusion, ligamentous injury, gwen rovascular, compartment syndrome, rhabdomyolysis, as well as other pathologies. Medical Records Attestation: I reviewed the patient's medical records. Home Medications Current Medication List: was personally reviewed by me Laboratory Data Attestation: I reviewed the patient's lab results. Result diagrams: 02/28/20 07:00 02/28/20 07:00 Lab Results 02/28/20 02/28/20 02/28/20 Range/Units 07:00 07:00 07:00 WBC 6.21 (4.8-10.8) K/uL RBC 4.13 L (4.2-5.4) M/uL Hgb 13.4 (12.0-16.0) g/dL Hct 41.6 (37-47) % MCV 100.7 H (80-100) fL MCH 32.4 (25-34) pg MCHC 32.2 (32-36) g/dL RDW Std Deviation 48.7 H (36.4-46.3) fL RDW Coeff of Chiara 13.3 (11.5-14.5) % Plt Count 331 (130-400) K/uL MPV 9.4 (7.4-10.4) fL Immature Gran % (Auto) 0.2 % Neut % (Auto) 53.7 % Lymph % (Auto) 30.1 % [place] % (Auto) 14.5 % Eos % (Auto) 1.0 % Baso % (Auto) 0.5 % Immature Gran # (Auto) 0.01 (0.00-0.02) K/uL Neut # (Auto) 3.34 (1.4-6.5) K/uL Lymph # (Auto) 1.87 (1.2-3.4) K/uL [place] # (Auto) 0.90 H (0.11-0.59) K/uL Eos # (Auto) 0.06 (0-0.5) K/uL Baso # (Auto) 0.03 (0-0.2) K/uL PT 11.9 (9.0-12.0) Seconds INR 1.1 (0.9-1.1) APTT 28.8 (21.0-31.0) Seconds PTT Ratio 1.0 Sodium 134 L (136-145) mmol/L Potassium 4.1 (3.5-5.1) mmol/L Chloride 100 (98-107) mmol/L Carbon Dioxide 27 (21-32) mmol/L Anion Gap 7.0 (3-11) BUN 18 (7-18) mg/dl Creatinine 0.82 (0.6-1.2) mg/dl Est Cr Clr Drug Dosing 34.7 ml/min Est GFR ( Amer) 74.6 Est GFR (Non-Af Amer) 64.3 BUN/Creatinine Ratio 22.3 H (10-20) Glucose 103 H (70-99) mg/dl Calcium 9.1 (8.5-10.1) mg/dl Urine Color Urine Appearance (Clear) Urine pH (4.5-7.5) Ur Specific [place] (1.000-1.030) Urine Protein (Negative) Urine Glucose (UA) (Negative) Urine Ketones (Negative) Urine Blood (Negative) Urine Nitrite (Negative) Urine Bilirubin (Negative) Urine Urobilinogen (Negative) Ur Leukocyte Esterase (Negative) Urine WBC (Auto) (0-5) /hpf Urine RBC (Auto) (0-4) /hpf U Hyaline Cast (Auto) (0-5) /lpf U Epithel Cells (Auto) (0-5) /lpf Urine Bacteria (Auto) (Negative) 02/28/20 Range/Units 07:15 WBC (4.8-10.8) K/uL RBC (4.2-5.4) M/uL Hgb (12.0-16.0) g/dL Hct (37-47) % MCV (80-100) fL MCH (25-34) pg MCHC (32-36) g/dL RDW Std Deviation (36.4-46.3) fL RDW Coeff of Chiara (11.5-14.5) % Plt Count (130-400) K/uL MPV (7.4-10.4) fL Immature Gran % (Auto) % Neut % (Auto) % Lymph % (Auto) % [place] % (Auto) % Eos % (Auto) % Baso % (Auto) % Immature Gran # (Auto) (0.00-0.02) K/uL Neut # (Auto) (1.4-6.5) K/uL Lymph # (Auto) (1.2-3.4) K/uL [place] # (Auto) (0.11-0.59) K/uL Eos # (Auto) (0-0.5) K/uL Baso # (Auto) (0-0.2) K/uL PT (9.0-12.0) Seconds INR (0.9-1.1) APTT (21.0-31.0) Seconds PTT Ratio Sodium (136-145) mmol/L Potassium (3.5-5.1) mmol/L Chloride (98-107) mmol/L Carbon Dioxide (21-32) mmol/L Anion Gap (3-11) BUN (7-18) mg/dl Creatinine (0.6-1.2) mg/dl Est Cr Clr Drug Dosing ml/min Est GFR ( Amer) Est GFR (Non-Af Amer) BUN/Creatinine Ratio (10-20) Glucose (70-99) mg/dl Calcium (8.5-10.1) mg/dl Urine Color Yellow Urine Appearance Cloudy A (Clear) Urine pH 8.0 H (4.5-7.5) Ur Specific [place] 1.017 (1.000-1.030) Urine Protein Negative (Negative) Urine Glucose (UA) Negative (Negative) Urine Ketones Negative (Negative) Urine Blood Negative (Negative) Urine Nitrite Negative (Negative) Urine Bilirubin Negative (Negative) Urine Urobilinogen Negative (Negative) Ur Leukocyte Esterase Negative (Negative) Urine WBC (Auto) 1-5 (0-5) /hpf Urine RBC (Auto) 0-4 (0-4) /hpf U Hyaline Cast (Auto) 0 (0-5) /lpf U Epithel Cells (Auto) 10-20 H (0-5) /lpf Urine Bacteria (Auto) Negative (Negative) Imaging Data Radiologist's Impression: [facility], [place] [phone] XRay Report Patient: CHARLY ANN Admit Date: 02/28/20 MR#: [id number] Address1: [address] [place] [address] Acct ID:[id number] Address2: Date: 1930 [facility] Zip: [place], [place] [address] Age: 89 Location: ED Sex: F Room/Bed: Att Phy: Diagnosis: R hip pain Sidra Phy: Ben Schmidt MD Service Date: 02/28/20 Fam Phy: Interpreting Phy: Troy Feldman Admit Phy: Ordering Phy: Heron Anderson MD cc: ~ XR chest 1V portable HISTORY: 89 years-old Female Pt c/o Rt hip pain acute right hip pain COMPARISON: Chest radiograph 01/18/2020, CTA chest 12/11/2019 TECHNIQUE: Semierect AP view of the chest FINDINGS: Cardiac mediastinal and hilar silhouettes are unchanged. Calcified plaque of the thoracic aortic arch. Previously noted 6 mm right apical pulmonary nodule is better seen on comparison CTA of the chest. Mild emphysema. No pneumothorax, pleural effusion or overt pulmonary edema. Degenerative changes of the shoulders and spine. IMPRESSION: 1. Mild emphysema without acute process. 2. Ill-defined right apical pulmonary nodule is better seen on comparison CTA of the chest. ACT 112: Negative or not required by law. The above report was generated using voice recognition software. It may contain grammatical, syntax or spelling errors. Electronically signed by: Jason Feldman M.D. 02/28/2020 7:48 AM Dictated: 02/28/20 0746 Transcribed: 02/28/20 0746 [place], [place] [phone] XRay Report Patient: CHARLY ANN Admit Date: 02/28/20 MR#: [id number] Address1: [address] [place] [address] Acct ID:[id number] Address2: Date: 1930 [facility] Zip: [place] [address] Age: 89 Location: ED Sex: F Room/Bed: Att Phy: Diagnosis: R hip pain Sidra Phy: Ben Schmidt MD Service Date: 02/28/20 [facility] Phy: Interpreting Phy: Troy Feldman Admit Phy: Ordering Phy: eHron Anderson MD cc: ~ XR pelvis 1-2V routine, XR femur RT 2V routine HISTORY: 89 years-old Female Pt c/o Rt hip pain acute pelvic and right hip pain COMPARISON: Pelvis radiograph 01/18/2020 TECHNIQUE: AP view of the pelvis with 2 views of the right femur FINDINGS: PELVIS: Right hip total joint arthroplasty. Moderate left hip osteoarthritis. Demineralized appearance of the bones. No acute fracture or dislocation of the pelvis or left hip. Ill-defined linear lucencies with cortical irregularity involves the right greater trochanter. Vascular calcifications are noted. Advanced degeneration of the imaged lumbar spine. RIGHT FEMUR: Ill-defined linear lucencies with cortical irregularity involves the greater trochanter. Right hip total joint arthroplasty with hardware appearing intact. Mild lateral right hip soft tissue swelling. Osteoarthritis of the right knee. The mid and distal femur appear intact. IMPRESSION: 1. Ill-defined linear lucencies with equivocal cortical irregularity involving the lateral cortex of the right greater trochanter is best appreciated on the AP view of the pelvis, suspicious for acute nondisplaced fracture. 2. Right hip total joint arthroplasty. 3. Moderate left hip osteoarthritis. ACT 112: Negative or not required by law. The above report was generated using voice recognition software. It may contain grammatical, syntax or spelling errors. Electronically signed by: Jason Feldman M.D. 02/28/2020 7:46 AM Dictated: 02/28/20 0742 Transcribed: 02/28/20 0742 [place], [place] [phone] XRay Report Patient: CHARLY ANN Admit Date: 02/28/20 MR#: [id number] Address1: [address] [place] [address] Acct ID:[id number] Address2: Date: 1930 [facility] Zip: [place] [address] Age: 89 Location: ED Sex: F Room/Bed: Att Phy: Diagnosis: R hip pain Sidra Phy: Ben Schmidt MD Service Date: 02/28/20 [facility] Phy: Interpreting Phy: Troy Feldman Admit Phy: Ordering Phy: Heron Anderson MD cc: ~ XR pelvis 1-2V routine, XR femur RT 2V routine HISTORY: 89 years-old Female Pt c/o Rt hip pain acute pelvic and right hip pain COMPARISON: Pelvis radiograph 01/18/2020 TECHNIQUE: AP view of the pelvis with 2 views of the right femur FINDINGS: PELVIS: Right hip total joint arthroplasty. Moderate left hip osteoarthritis. Demineralized appearance of the bones. No acute fracture or dislocation of the pelvis or left hip. Ill-defined linear lucencies with cortical irregularity involves the right greater trochanter. Vascular calcifications are noted. Advanced degeneration of the imaged lumbar spine. RIGHT FEMUR: Ill-defined linear lucencies with cortical irregularity involves the greater trochanter. Right hip total joint arthroplasty with hardware appearing intact. Mild lateral right hip soft tissue swelling. Osteoarthritis of the right knee. The mid and distal femur appear intact. IMPRESSION: 1. Ill-defined linear lucencies with equivocal cortical irregularity involving the lateral cortex of the right greater trochanter is best appreciated on the AP view of the pelvis, suspicious for acute nondisplaced fracture. 2. Right hip total joint arthroplasty. 3. Moderate left hip osteoarthritis. ACT 112: Negative or not required by law. The above report was generated using voice recognition software. It may contain grammatical, syntax or spelling errors. Electronically signed by: Jason Feldman M.D. 02/28/2020 7:46 AM Dictated: 02/28/20741 Transcribed: 02/28/20741 ECG Data Attestation: I personally reviewed and interpreted this ECG as follows: Indication: + other (hip pain) Rate (beats per minute): 88 Rhythm: + normal sinus ECG Intervals/blocks: + Normal QT-c (442) ECG [place]: + Normal ECG ST segments: no ST depression and no ST elevation Comparison ECG Date: from (01/18/2020) Change: no significant change MDM Narrative Patient was seen and evaluated as above in room A2. Review was performed of nursing notes and vital signs. I did review pertinent previous visits and patient history. After obtaining a thorough history and physical examination the above work up was performed. An order was placed for continuous cardiac monitoring. The monitor shows a rate of 83 with Normal Sinus rhythm. This is an 89-year-old female who presents emergency department complaining of right hip pain. Patient had a arthroplasty performed earlier this year in September. It does appear that the patient has a trochanteric fracture. I did discuss this case with orthopedics who felt that the patient could follow-up closely in the office. In the meantime the patient I feel is at high risk if she goes home and falls. Especially over the fact that I cannot get her pain under control here in the emergency department. She was given 4 doses of Dilau did here as well as Tylenol and lidocaine. Repeat examination revealed improvement the patient's symptoms. I did discuss the case with the hospitalist service who did agree to admit the patient. Patient and family are in agreement with the treatment plan. The patient was evaluated during the global COVID-19 pandemic, and that diagnosis was suspected/considered upon their initial presentation. Their evaluation, treatment and testing was consistent with current guidelines for patients who present with complaints or symptoms that may be related to COVID- 19. Impression & Plan Acute hip pain, Closed trochanteric fracture of hip Discharge Plan Visit Data *Final* Discharge Date/Time: 02/28/20 12:25 Chief Complaint: Hip Pain Stated Complaint: R hip pain ED Provider: Heron Anderson Discharge Problem: Acute hip pain, Closed trochanteric fracture of hip Patient Disposition: Admitted As Inpatient Discharge Instructions Interventions: ED Discharge Assessment Last Done: 02/28/20 12:25 Discharge Problem: Acute hip pain Qualifiers: Laterality: right Qualified Code(s): M25.551 - Pain in right hip Closed trochanteric fracture of hip Qualifiers: Encounter type: initial encounter Laterality: right Qualified Code(s): S72.101A - Unspecified trochanteric fracture of right femur, initial encounter for closed fracture
[2020-02-28 07:07] LABS: Basophils # (auto) 0.03 K/uL (0-0.2); Basophils % (auto) 0.5 %; Eosinophils # (auto) 0.06 K/uL (0-0.5); Hematocrit (blood only) 41.6 % (37-47); Hemoglobin 13.4 g/dL (12.0-16.0); Immature Granulocytes # (auto) 0.01 K/uL (0.00-0.02); Immature Granulocytes % (auto) 0.2 %; Lymphocytes # (auto) 1.87 K/uL (1.2-3.4); Lymphocytes % (auto) 30.1 %; Mean Corpuscular Hemoglobin 32.4 pg (25-34); Mean Corpuscular Hgb Conc 32.2 g/dL (32-36); Mean Corpuscular Volume 100.7 fL (80-100); Mean Platelet Volume 9.4 fL (7.4-10.4); Monocytes % (auto) 14.5 %; Neutrophils # (auto) 3.34 K/uL (1.4-6.5); Neutrophils % (auto) 53.7 %; Platelet Count 331 K/uL (130-400); RDW Coefficient of Variation 13.3 % (11.5-14.5); RDW Standard Deviation 48.7 fL (36.4-46.3); Red Blood Count 4.13 M/uL (4.2-5.4); White Blood Count 6.21 K/uL (4.8-10.8)
[2020-02-28 07:18] LABS: INR 1.1 (0.9-1.1); Partial Thromboplastin Time 28.8 Seconds (21.0-31.0); Prothrombin Time 11.9 Seconds (9.0-12.0)
[2020-02-28 07:23] LABS: BUN Creatinine Ratio 22.3 (10-20); Calcium 9.1 mg/dl (8.5-10.1); Creatinine Clr Calc Pharmacy 34.7 ml/min; Est GFR (African American) 74.6; Est GFR (Non-African American) 64.3; Potassium 4.1 mmol/L (3.5-5.1)
[2020-02-28] MEDS: HYDROmorphone INJ 0.5 MG/0.5 ML SYR IV PRN ×5 (07:23→13:41)
[2020-02-28 07:31] LABS: Appearance Urine Cloudy (Clear); Bacteria Urine Automated Negative (Negative); Bilirubin Urine Negative (Negative); Blood Urine Negative (Negative); Cast Urine Automated 0 /lpf (0-5); Color Urine Yellow; Glucose Urine UA Negative (Negative); Ketones Urine Negative (Negative); Leukocyte Esterase Urine Negative (Negative); Nitrite Urine Negative (Negative); Protein Urine Negative (Negative); RBC Urine Automated 0-4 /hpf (0-4); Specific Gravity Urine 1.017 (1.000-1.030); Urobilinogen Urine Negative (Negative)
--- NOTE | 2020-02-28 07:47 | XRay Report ---
XR pelvis 1-2V routine, XR femur RT 2V routine HISTORY: 89 years-old Female Pt c/o Rt hip pain acute pelvic and right hip pain COMPARISON: Pelvis radiograph 01/18/2020 TECHNIQUE: AP view of the pelvis with 2 views of the right femur FINDINGS: PELVIS: Right hip total joint arthroplasty. Moderate left hip osteoarthritis. Demineralized appearance of the bones. No acute fracture or dislocation of the pelvis or left hip. Ill-defined linear lucencies with cortical irregularity involves the right greater trochanter. Vascular calcifications are noted. Adva nced degeneration of the imaged lumbar spine. RIGHT FEMUR: Ill-defined linear lucencies with cortical irregularity involves the greater trochanter. Right hip to everette joint arthroplasty with hardware appearing intact. Mild lateral right hip soft tissue swelling. O steoarthritis of the right knee. The mid and distal femur appear intact. IMPRESSION: 1. Ill-defined linear lucencies with equivocal cortical irregularity involving the lateral cortex of the right greater trochanter is best appreciated on the AP view of the pelvis, suspicious for acute n ondisplaced fracture. 2. Right hip total joint arthroplasty. 3. Moderate left hip osteoarthritis. ACT 112: Negative or not required by law. The above report was generated using voice recognition software. It may contain grammatical, syntax o r spelling errors. Electronically signed by: Jason Feldman M.D. 02/28/2020 7:46 AM
--- NOTE | 2020-02-28 07:50 | XRay Report ---
XR chest 1V portable HISTORY: 89 years-old Female Pt c/o Rt hip pain acute right hip pain COMPARISON: Chest radiograph 01/18/2020, CTA chest 12/11/2019 TECHNIQUE: Semierect AP view of the chest FINDINGS: Cardiac mediastinal and hilar silhouettes are unchanged. Calcified plaque of the thoracic aortic arch . Previously noted 6 mm right apical pulmonary nodule is better seen on comparison CTA of the chest. Mild emphysema. No pneumothorax, pleural effusion or overt pulmonary edema. Degenerative changes of t he shoulders and spine. IMPRESSION: 1. Mild emphysema without acute process. 2. Ill-defined right apical pulmonary nodule is better seen on comparison CTA of the chest. ACT 112: Negative or not required by law. The above report was generated using voice recognition software. It may contain grammatical, syntax o r spelling errors. Electronically signed by: Jason Feldman M.D. 02/28/2020 7:48 AM
--- NOTE | 2020-02-28 10:45 | History & Physical Report ---
Date of Service February 28, 2020 Assessment & Plan (1) Acute hip pain: * Obs med/surg. Xray with ill-defined linear lucencies with equivocal cortical irregularity involving lateral cortex of RIGHT greater trochanter, suspicious for acute nondisplaced fracture * Orthopedic consult -- appreciate assistance * PT/OT -- non-weightbearing R until seen by Ortho * Pain control -- tylenol Q8. Tramadol, Dilaudid prn * Vit D level pending * CM consult -- will need assistance with placement -- had issues with [facility] in the past and family/patient would like alternative options (2) Closed trochanteric fracture of hip: * See above (3) Recurrent UTI: * Has been seen by Urology -- to be on continuous nitrofurantoin for prophylaxis. Hx bilateral nephrolithiasis. * UA without evidence of infection on admission. * Continue outpatient nitrofurantoin (4) HTN (hypertension): * BP 151/90 * Continue home lisinopril 20mg (5) Chronic kidney disease, stage 3a: * Reported history * Cr stable at 0.82, eGFR 64.3 currently though * BMP in AM (6) Hyperlipidemia: * Chronic, * Continue home atorvastatin (7) Rheumatoid arthritis: * Chronic. * Continue sulfasalazine * Will give prednisone 40mg in AM --> on 5mg outpatient but will give stress dos e while inpatient and additional dose if patient proceeds for surgical intervention * Continue to monitor (8) History of pulmonary embolism: * Secondary to immobility and following hip surgery earlier this year --> initiated on heparin gtt and dicharged on Xarelto * Continue home Xarelto 20mg (9) Hyponatremia: * Hx chronic hyponatremia. Had urine studies Sep 2019 with urine osm 446, urine sodium 34, serum osm 259 on admission --> consistent with hypovolemic hyponatremia. TSH was normal (no signs of adrenal insuffiency) * Na low normal at 134 * Of note, patient with apical pulmonary nodule which could be concerning for malignancy given history of smoking * BMP in AM (10) Anemia: * Hx of. H/h stable 13.4/41.6. No s/sx bleeding * MCV >100. Folate and B12 have been wnl in the past. See above * CBC in AM (11) DVT prophylaxis: * Xarelto Dispo: likely will need placement at discharge. PT/OT/pain control/orthopedics -- anticipate 2-3 days pending CM/placement History of Present Illness Chief Complaint: Right Hip Pain Primary Care Provider: Ben Schmidt 89 year old female with PMH significant for HTN, HLD, CKD III, RA, urge incontinence, anxiety/depression presented to the emergency department with worsening severe right hip pain since last evening. Patient had a right hip replacement earlier this year by Dr. Santana in September 2019 with numerous admissions following for hyponatremia from poor PO intake as well as recurrent UTI and complicated by PE (secondary to lack of mobility) and initiated on Xarelto. Patient states her right hip pain has been chronic but has not been right since surgery. She states her pain increased last night and she was unable to get comfortable despite Tylenol and Ultram. She denies recent falls in the past couple of weeks but did have a fall in December 2019. She states her pain was a "25/10" when she got to the ER and has been experiencing sharp shooting pain along with some numbness/tingling down her right leg. She states the pain medication in the ER has brought the pain down to a 2/10 but still has some increased pain in her right buttock that is worsened by movement. Associated nausea with pain and shortness of breath secondary to pain with movement. Denies shortness of breath at baseline or calf tenderness. States she did have some sweats last night as well secondary to pain but denies any fever or chills since that time. Denies chest pain, visual changes, abdominal pain, diarrhea/constipation, bowel incontinence. Endorses urinary incontinence but she states she wears a pad daily. She states she got home approximately two weeks ago from [facility] but she had bad experiences at both [facility] and [facility] and if rehab is necessary that she would like to look into other options. Allergies Allergy/AdvReac Type Severity Reaction Status Date / Time Sulfa (Sulfonamide Allergy Intermediate Rash Verified 02/28/20 08:00 Antibiotics) [email or web address] [From Myrbetriq] AdvReac Intermediate hypertensio Verified 02/28/20 08:00 n nicotine AdvReac Mild PATCH-SKIN Verified 02/28/20 08:00 IRRITATION shrimp AdvReac Mild Photosensit Verified 02/28/20 08:00 ivity Home Medications Home Medications Medication Instructions Recorded Confirmed Type Centrum Silver Women 1 tab PO QAM 07/06/18 02/28/20 History atorvastatin 20 mg PO QAM 09/05/19 02/28/20 History cholecalciferol (vitamin D3) 2,000 unit PO QAM 09/05/19 02/28/20 History [Vitamin D3] duloxetine [Cymbalta] 20 mg PO QAM 09/05/19 02/28/20 History prednisone 5 mg PO QAM 09/05/19 02/28/20 History polyethylene glycol 3350 [Miralax] 17 g PO QAM PRN 09/28/19 02/28/20 History lisinopril 20 mg PO QAM 11/11/19 02/28/20 History acetaminophen [Tylenol Extra 1,000 mg PO TID 11/12/19 02/28/20 History Strength] tamsulosin 0.4 mg capsule 0.4 mg PO HS #30 cap 12/01/19 02/28/20 Rx Cbd Oil 1 ml PO HS 01/18/20 02/28/20 History Xarelto 20 mg PO QAM 01/18/20 02/28/20 History acetaminophen 500 mg PO UD 01/18/20 02/28/20 History melatonin 6 mg PO HS 01/18/20 02/28/20 History sulfasalazine 500 mg PO BID 01/18/20 02/28/20 History tramadol 50 mg PO AMHS 01/18/20 02/28/20 History nitrofurantoin macrocrystal 50 mg 50 mg PO HS #90 cap 02/15/20 02/28/20 Rx capsule fluconazole 100 mg tablet 100 mg PO DAILY #3 tab 02/20/20 02/28/20 Rx aspirin 81 mg PO BID 02/28/20 02/28/20 History Past Med/Surg History Medical History Anemia Anxiety Depression Glaucoma (Chronic) Hearing deficit (Chronic) [facility] Hyperlipidemia (Chronic) Hyponatremia Kidney stones (Chronic) Osteoarthritis (Chronic) Rheumatoid arthritis (Chronic) Surgical History Hip fracture requiring operative repair History of colonoscopy (Resolved) History of cystoscopy WITH STENT History of tooth extraction (Resolved) Nausea and vomiting after administration of anesthetic agent Status post cystoscopy with ureteral stent placement 10/28/2019 [facility] Family History Father Hypertension Other No pertinent family history in first degree relatives Social History Preferred Language: German Communication Ability: Effective Visual Impairment: No 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 Beliefs That Will Affect Care: None marital status: / Current Living Situation: Alone Other Information That Helps Us Care for You: No Feels Safe at Home: Yes Safety Concerns: Feels Safe At This Time Smoking Status: Former smoker Tobacco Type: cigarettes ; Cigarettes Per Day: 20-40 ; Do You Dip or Chew Tobacco: No ; Second Hand Exposure: No ; Tobacco Cessation Education Requested by Patient: No Hx Alcohol Use: Yes Alcohol type: wine Alcohol Intake Frequency Comment: oc casional, rare Hx Substance Use: No Review of Systems Review of Systems: All systems reviewed & are unremarkable except as noted in HPI & below Constitutional: no fever and no chills Eyes: no diplopia and no problem reported Ear, Nose, Mouth, Throat: no sore throat and no dysphagia Respiratory: no cough and no dyspnea Cardiovascular: no chest pain and no palpitations Gastrointestinal: + nausea; no abdominal pain and no vomiting Genitourinary: no dysuria and no hematuria Musculoskeletal: right hip pain Integumentary: no rash and no lesions Neurologic: + numbness and + paresthesia; no falls, no syncope and no headache(s) Psychiatric: no depression and no hopelessness Endocrine: no polydipsia and no polyphagia Allergy / Immunological: no cough and no dyspnea Physical Exam Constitutional: WD/WN, vitals as above no acute distress Eyes: PERRL ENMT: dry mm hearing impairment b/l Neck: trachea midline, no thyromegaly Respiratory: normal respiratory effort; no respiratory distress and no labored breathing Auscultation: + diminished lung sounds (bases); no crackles and no wheezes Cardiovascular: RRR, no murmur, no edema Musculoskeletal: tender to palpation over region R greater trochanter Pain with active and passive ROM R hip, internal/external rotation. Non-tender with ROM about the knee strength 5/5 LLE, 4/5 RLE with dorsiflexion Skin: dressing to R hip, dated 02/27 7:40 am c/d/i no erythema or evidence of drainage Neurologic: patellar DTR's 2+ bilat, sensation intact Psychiatric: A+Ox3, euthymic affect Lymphatic: no cervical or axillary lymphadenopathy Results & Data Results & Data ([facility]) Vital Signs (Past 12 Hours) Vital Signs Temp Pulse Pulse Resp BP BP Pulse Ox 02/28/20 09:05 86 18 133/65 91 02/28/20 08:29 85 18 144/77 H 95 02/28/20 07:43 90 20 202/94 H 96 02/28/20 06:52 36.4 C L 68 20 196/101 H 96 Laboratory Results 02/28/20 02/28/20 02/28/20 Range/Units 07:15 07:00 07:00 WBC (4.8-10.8) K/uL RBC (4.2-5.4) M/uL Hgb (12.0-16.0) g/dL Hct (37-47) % MCV (80-100) fL MCH (25-34) pg MCHC (32-36) g/dL RDW Std Deviation (36.4-46.3) fL RDW Coeff of Chiara (11.5-14.5) % Plt Count (130-400) K/uL MPV (7.4-10.4) fL Immature Gran % (Auto) % Neut % (Auto) % Lymph % (Auto) % [place] % (Auto) % Eos % (Auto) % Baso % (Auto) % Immature Gran # (Auto) (0.00-0.02) K/uL Neut # (Auto) (1.4-6.5) K/uL Lymph # (Auto) (1.2-3.4) K/uL [place] # (Auto) (0.11-0.59) K/uL Eos # (Auto) (0-0.5) K/uL Baso # (Auto) (0-0.2) K/uL PT 11.9 (9.0-12.0) Seconds INR 1.1 (0.9-1.1) APTT 28.8 (21.0-31.0) Seconds PTT Ratio 1.0 Sodium 134 L (136-145) mmol/L Potassium 4.1 (3.5-5.1) mmol/L Chloride 100 (98-107) mmol/L Carbon Dioxide 27 (21-32) mmol/L Anion Gap 7.0 (3-11) BUN 18 (7-18) mg/dl Creatinine 0.82 (0.6-1.2) mg/dl Est Cr Clr Drug Dosing 34.7 ml/min Est GFR ( Amer) 74.6 Est GFR (Non-Af Amer) 64.3 BUN/Creatinine Ratio 22.3 H (10-20) Glucose 103 H (70-99) mg/dl Calcium 9.1 (8.5-10.1) mg/dl Urine Color Yellow Urine Appearance Cloudy A (Clear) Urine pH 8.0 H (4.5-7.5) Ur Specific [place] 1.017 (1.000-1.030) Urine Protein Negative (Negative) Urine Glucose (UA) Negative (Negative) Urine Ketones Negative (Negative) Urine Blood Negative (Negative) Urine Nitrite Negative (Negative) Urine Bilirubin Negative (Negative) Urine Urobilinogen Negative (Negative) Ur Leukocyte Esterase Negative (Negative) Urine WBC (Auto) 1-5 (0-5) /hpf Urine RBC (Auto) 0-4 (0-4) /hpf U Hyaline Cast (Auto) 0 (0-5) /lpf U Epithel Cells (Auto) 10-20 H (0-5) /lpf Urine Bacteria (Auto) Negative (Negative) 02/28/20 Range/Units 07:00 WBC 6.21 (4.8-10.8) K/uL RBC 4.13 L (4.2-5.4) M/uL Hgb 13.4 (12.0-16.0) g/dL Hct 41.6 (37-47) % MCV 100.7 H (80-100) fL MCH 32.4 (25-34) pg MCHC 32.2 (32-36) g/dL RDW Std Deviation 48.7 H (36.4-46.3) fL RDW Coeff of Chiara 13.3 (11.5-14.5) % Plt Count 331 (130-400) K/uL MPV 9.4 (7.4-10.4) fL Immature Gran % (Auto) 0.2 % Neut % (Auto) 53.7 % Lymph % (Auto) 30.1 % [place] % (Auto) 14.5 % Eos % (Auto) 1.0 % Baso % (Auto) 0.5 % Immature Gran # (Auto) 0.01 (0.00-0.02) K/uL Neut # (Auto) 3.34 (1.4-6.5) K/uL Lymph # (Auto) 1.87 (1.2-3.4) K/uL [place] # (Auto) 0.90 H (0.11-0.59) K/uL Eos # (Auto) 0.06 (0-0.5) K/uL Baso # (Auto) 0.03 (0-0.2) K/uL PT (9.0-12.0) Seconds INR (0.9-1.1) APTT (21.0-31.0) Seconds PTT Ratio Sodium (136-145) mmol/L Potassium (3.5-5.1) mmol/L Chloride (98-107) mmol/L Carbon Dioxide (21-32) mmol/L Anion Gap (3-11) BUN (7-18) mg/dl Creatinine (0.6-1.2) mg/dl Est Cr Clr Drug Dosing ml/min Est GFR ( Amer) Est GFR (Non-Af Amer) BUN/Creatinine Ratio (10-20) Glucose (70-99) mg/dl Calcium (8.5-10.1) mg/dl Urine Color Urine Appearance (Clear) Urine pH (4.5-7.5) Ur Specific [place] (1.000-1.030) Urine Protein (Negative) Urine Glucose (UA) (Negative) Urine Ketones (Negative) Urine Blood (Negative) Urine Nitrite (Negative) Urine Bilirubin (Negative) Urine Urobilinogen (Negative) Ur Leukocyte Esterase (Negative) Urine WBC (Auto) (0-5) /hpf Urine RBC (Auto) (0-4) /hpf U Hyaline Cast (Auto) (0-5) /lpf U Epithel Cells (Auto) (0-5) /lpf Urine Bacteria (Auto) (Negative) Diagnostic Findings CXR IMPRESSION: 1. Mild emphysema without acute process. 2. Ill-defined right apical pulmonary nodule is better seen on comparison CTA of the chest. RIGHT Pelvis/Femur IMPRESSION: 1. Ill-defined linear lucencies with equivocal cortical irregularity involving the lateral cortex of the right greater trochanter is best appreciated on the AP view of the pelvis, suspicious for acute nondisplaced fracture. 2. Right hip total joint arthroplasty. 3. Moderate left hip osteoarthritis. ECG Rate (beats per minute): 88 Rhythm: normal sinus Findings: + nonspecific-ST abn Supervising Physician Co-Signing Physician Notes Attending Attestation & Admission Note: Pt seen/examined, chart reviewed, admission care plan d/w PA Hemalatha Veliz. I agree w/ the price components of her documentation. 89yo female with multiple admissions in 2019 (kidney stones, hyponatremia, PE, etc), steroid-dependent RA, CKD stage 3 - presenting w/ severe right hip pain in absence of fall/trauma. Found to have greater trochanter periprosthetic fracture on right side. During my assessment c/o severe pain in that same location. Minimal back pain. No left hip pain. PMH, PSH, allergies, meds, sochx, famhx - reviewed vitals - BPs high, otherwise stable and afebrile gen - thin, distress due to pain, anxious mouth - MM dry neck - no JVD heart - RRR, s1 s2 lungs - CTA b/l abd - soft NT musculo - right hip tender over greater trochanter; pain reproduced with internal/external rotation of hip ext - no edema labs reviewed imaging reviewed A/P: 1. right hip pain - suspected greater trochanter fracture - etiology? no trauma 2. h/o PE on xarelto 3. h/o recurrent UTIs on macrobid prophy 4. steroid-dependent RA 5. hyponatremia - chronic - not on diuretic therapy; low-grade SIADH? bedrest/NWB to RLE until seen by ortho stress-dose steroids cont xarelto BMP in am for stability of hyponatremia pain control will ultimately need PT/OT after being seen by ortho Eliu Ellis MD PG Care Time/CCT Total # of Minutes Spent Total Time Spent with Patient: Total time spent is greater than 50% in coordination of care (as documented) at patient's floor/unit and/or counseling patient: Coding Level of Care Code 76588 OBS Care - Level 3 Diagnoses Acute hip pain M25.551 Laterality: right Closed trochanteric fracture of hip S72.101A Encounter type: initial encounter Laterality: right Recurrent UTI N39.0 HTN (hypertension) I10 Chronic kidney disease, stage 3a N18.3 Hyperlipidemia E78.5 Hyperlipidemia type: unspecified Rheumatoid arthritis M06.9 Rheumatoid arthritis location: unspecified site Rheumatoid factor presence: unspecified presence History of pulmonary embolism Z86.711 Hyponatremia E87.1 Anemia D64.9 DVT prophylaxis Z29.9 (1) Acute hip pain Laterality: right Qualified Code(s): M25.551 - Pain in right hip (2) Rheumatoid arthritis Rheumatoid arthritis location: unspecified site Rheumatoid factor presence: unspecified presence Qualified Code(s): M06.9 - Rheumatoid arthritis, unspecified (3) Closed trochanteric fracture of hip Encounter type: initial encounter Laterality: right Qualified Code(s): S72.101A - Unspecified trochanteric fracture of right femur, initial encounter for closed fracture (4) Hyperlipidemia Hyperlipidemia type: unspecified Qualified Code(s): E78.5 - Hyperlipidemia, unspecified
--- NOTE | 2020-02-28 12:17 | Electrocardiogram Report ---
Test Reason : Blood Pressure : / mmHG Vent. Rate : 088 BPM Atrial Rate : 088 BPM P-R Int : 122 ms QRS Dur : 088 ms QT Int : 366 ms P-R-T Axes : 081 054 085 degrees QTc Int : 442 ms Normal sinus rhythm Nonspecific ST and T wave abnormality Abnormal ECG When compared with ECG of 18-JAN-2020 16:03, Minimal criteria for Inferior infarct are no longer Present Confirmed by Roland Kulkarni ([id number]) on 02/28/2020 12:17:28 PM Referred By: REFERRED SELF Confirmed By:Fran Kulkarni
[2020-02-28] MEDS ORDERED: ALUMINUM/MAGNESIUM SUSP 30 ML UDC PO PRN (13:04)
[2020-02-28] MEDS ORDERED: ONDANSETRON INJ 2 MG/ML 2 ML VIAL IV PRN (13:04)
[2020-02-28] MEDS ORDERED: POLYETHYLENE (MIRALAX) 17 GM PACK PO PRN (13:04)
[2020-02-28] MEDS: ACETAMINOPHEN 500 MG TAB PO SCH ×2 (14:28→21:45)
[2020-02-28] MEDS: TRAMADOL HCL 50 MG TABLET PO PRN ×3 (14:28→23:12)
[2020-02-28] MEDS: RIVAROXABAN 20 MG TAB PO SCH (14:41)
[2020-02-28] MEDS: predniSONE 20 MG TAB PO SCH (14:41)
[2020-02-28] MEDS: sulfaSALAzine 500 MG TABEC PO SCH ×2 (14:41→22:13)
[2020-02-28] MEDS: lisinopriL 20 MG TAB PO SCH (15:41)
[2020-02-28] MEDS: MELATONIN 3 MG TAB PO SCH (21:45)
[2020-02-28] MEDS: nitrofurantoin macrocrystaL 50 MG CAP PO SCH (21:45)
[2020-02-28] MEDS: TAMSULOSIN HCL 0.4 MG CAP PO SCH (21:46)
[2020-02-29] MEDS: HYDROmorphone INJ 0.5 MG/0.5 ML SYR IV PRN ×3 (00:36→22:01)
[2020-02-29 05:12] LABS: Hematocrit (blood only) 40.9 % (37-47); Mean Corpuscular Hemoglobin 33.7 pg (25-34); Mean Corpuscular Hgb Conc 34.2 g/dL (32-36); Mean Corpuscular Volume 98.6 fL (80-100); Mean Platelet Volume 9.6 fL (7.4-10.4); Platelet Count 314 K/uL (130-400); Red Blood Count 4.15 M/uL (4.2-5.4); White Blood Count 7.22 K/uL (4.8-10.8)
[2020-02-29 05:42] LABS: BUN Creatinine Ratio 22.7 (10-20); Calcium 9.2 mg/dl (8.5-10.1); Creatinine Clr Calc Pharmacy 29.7 ml/min; Est GFR (African American) 61.6; Est GFR (Non-African American) 53.2; Potassium 4.6 mmol/L (3.5-5.1)
[2020-02-29] MEDS: ACETAMINOPHEN 500 MG TAB PO SCH ×3 (06:00→22:00)
[2020-02-29] MEDS: sulfaSALAzine 500 MG TABEC PO SCH ×2 (08:17→19:45)
[2020-02-29] MEDS: CHOLECALCIFEROL 1,000 UNITS 25 MCG TAB PO SCH (08:18)
[2020-02-29] MEDS: ASPIRIN 81 MG ECTAB PO SCH (08:18)
[2020-02-29] MEDS: predniSONE 20 MG TAB PO SCH (08:18)
[2020-02-29] MEDS: RIVAROXABAN 20 MG TAB PO SCH (08:19)
[2020-02-29] MEDS: ATORVASTATIN 20 MG TAB PO SCH (08:19)
[2020-02-29] MEDS: DULOXETINE HCL 20 MG CAP PO SCH (08:19)
[2020-02-29] MEDS: CEROVITE ADV FORMULA TAB PO SCH (08:20)
[2020-02-29] MEDS: HYDROCODONE/ACETAMOPHEN 5/325MG TAB PO PRN ×2 (08:23→19:43)
[2020-02-29] MEDS: SODIUM CHLORIDE 0.9% 1000ML 1,000 ML IV SCH ×2 (09:19→19:44)
[2020-02-29] MEDS: lisinopriL 20 MG TAB PO SCH (09:33)
--- NOTE | 2020-02-29 09:33 | Orthopedic Consultation ---
Date of Consultation February 29, 2020 Assessment & Plan (1) Sciatica associated with disorder of lumbar spine: Recommending Pain Management/Dr Sheikh referral evaluation and treatment of sciatica. Consider option of epidural injection. If this cannot be done in house, would recommend an outpatient appointment with Pain Management/Dr Sheikh with [facility] or Dr Fitzgerald with [facility]. Present on Admission?: Yes (2) Closed trochanteric fracture of hip: Dr Santana reviewed xrays. Acute nondisplaced greater trochanteric right hip fracture. Does not require surgical intervention. Hemiarthroplasty is stable and intact. Protected WBAT right LE with walker. PT/OT. Ice to right hip PRN pain as much as 20min every hour. Pain Management per medicine. Patient should follow-up with Dr Santana in approximately 2 wks for repeat right hip xrays at our office. Please call [phone] to schedule appointment. I, Dr. Santana, saw and examined the patient and discussed the management with my PA. I reviewed my PAs note and agree with the documented findings and the plan of care I developed. Present on Admission?: Yes History of Present Illness Reason for Consultation: Right hip pain Requesting Physician: Dr Santana Attending Physician: Alessandra Sultana MD History of Present Illness 89 yr old female know to Dr Santana s/p R hemiarthroplasty 09-14-19 secondary to fracture. We received consult secondary to right hip pain. Patient states she has had right hip pain since the surgery describing it as buttock and lateral hip pain. Worse however since a fall in December. She also states she has chronic right leg pain into her foot with numbness to bottom of right foot. Patients right hip pain has gotten significantly worse over the last few days without injury per patient report. She takes Tylenol and tramadol at home and that has been ineffective. She was seen in ED and admitted to medicine. PMH significant for HTN, HLD, CKD III, RA, urge incontinence, anxiety/depression. She has has numerous admissions following for her surgery with Dr Santana for hyponatremia from poor PO intake as well as recurrent UTI and complicated by PE (secondary to lack of mobility). She is on Xarelto. She states she got home approximately two weeks ago from [facility] but she had bad experiences at both [facility] and [facility] and if rehab is necessary that she would like to look into other options. Per diagnostics it appears she has had CT of her lumber spine in January 2020 which shows multilevel severe degenerative changes. No MRI noted. Per patient report, she thinks at some point there was discussion of seeing someone for her sciatica issues with talks about an injection. I do not see per [facility] records any mention of this with our office. Patient denies any bowel incontinence. She has hx of urinary incontinence in which she uses pads but this is not new. I, Dr. Santana, agree with above. Additionally she noted that she had seen a PA at [facility] who had sent her to a chiropractor, as well as discussing possible epidural injections. Following manipulation, she has felt worse and has had more pain down the right lower extremity. In addition in early January 2020 she had fallen. Allergies Allergy/AdvReac Type Severity Reaction Status Date / Time Sulfa (Sulfonamide Allergy Intermediate Rash Verified 02/28/20 08:00 Antibiotics) [email or web address] [From Myrbetriq] AdvReac Intermediate hypertensio Verified 02/28/20 08:00 n nicotine AdvReac Mild PATCH-SKIN Verified 02/28/20 08:00 IRRITATION shrimp AdvReac Mild Photosensit Verified 02/28/20 08:00 ivity Home Medications Home Medications Medication Instructions Recorded Confirmed Type Centrum Silver Women 1 tab PO QAM 07/06/18 02/28/20 History atorvastatin 20 mg PO QAM 09/05/19 02/28/20 History cholecalciferol (vitamin D3) 2,000 unit PO QAM 09/05/19 02/28/20 History [Vitamin D3] duloxetine [Cymbalta] 20 mg PO QAM 09/05/19 02/28/20 History prednisone 5 mg PO QAM 09/05/19 02/28/20 History polyethylene glycol 3350 [Miralax] 17 g PO QAM PRN 09/28/19 02/28/20 History lisinopril 20 mg PO QAM 11/11/19 02/28/20 History acetaminophen [Tylenol Extra 1,000 mg PO TID 11/12/19 02/28/20 History Strength] tamsulosin 0.4 mg capsule 0.4 mg PO HS #30 cap 12/01/19 02/28/20 Rx Cbd Oil 1 ml PO HS 01/18/20 02/28/20 History Xarelto 20 mg PO QAM 01/18/20 02/28/20 History acetaminophen 500 mg PO UD 01/18/20 02/28/20 History melatonin 6 mg PO HS 01/18/20 02/28/20 History sulfasalazine 500 mg PO BID 01/18/20 02/28/20 History tramadol 50 mg PO AMHS 01/18/20 02/28/20 History nitrofurantoin macrocrystal 50 mg 50 mg PO HS #90 cap 02/15/20 02/28/20 Rx capsule fluconazole 100 mg tablet 100 mg PO DAILY #3 tab 02/20/20 02/28/20 Rx aspirin 81 mg PO BID 02/28/20 02/28/20 History Patient History Medical History Anemia Anxiety Depression Glaucoma (Chronic) Hearing deficit (Chronic) BL ROMERO Hyperlipidemia (Chronic) Hyponatremia Kidney stones (Chronic) Osteoarthritis (Chronic) Rheumatoid arthritis (Chronic) Surgical History Hip fracture requiring operative repair History of colonoscopy (Resolved) History of cystoscopy WITH STENT History of tooth extraction (Resolved) Nausea and vomiting after administration of anesthetic agent Status post cystoscopy with ureteral stent placement 10/28/2019 [facility] Family History Father Hypertension Other No pertinent family history in first degree relatives Social History Preferred Language: [place]ican Communication Ability: Effective Visual Impairment: No Limitations Bass Fisher Required: No Beliefs That Will Affect Care: None marital status: / Current Living Situation: Alone Other Information That Helps Us Care for You: No Feels Safe at Home: Yes Safety Concerns: Feels Safe At This Time Smoking Status: Former smoker Tobacco Type: cigarettes ; Cigarettes Per Day: 20-40 ; Do You Dip or Chew Tobacco: No ; Second Hand Exposure: No ; Tobacco Cessation Education Requested by Patient: No Hx Alcohol Use: Yes Alcohol type: wine Alcohol Intake Frequency Comment: occasional, rare Hx Substance Use: No Review of Systems Review of Systems: All systems reviewed & are unremarkable except as noted in HPI & below Physical Exam Physical Exam: Patient laying in bed. Appears uncomfortable. She says its difficult to move in bed to adjust herself in fear of pain. She has B SCDs donned. Right hip incision well healed. Lidoderm patch on. Tender to palpation over right greater troch>right buttock. Nontender to right thigh or knee. Pain in right lateral thigh with log rolling. Pain to right lateral thigh with hip and knee flexion. No pain to right knee or ankle with motion. Neg SLR. Nontender to Calves. Neg homans. Altered sensation to bottom of right foot to light touch. 5/5 B EHL, TA, gastroc strength. But breakaway on right. Palpable B DP and PT pulses. I, Dr. Santana, evaluated the patient as well. Focusing on the right lower extremity, she is neurovascularly intact, except for altered sensation to the bottom of the right foot with light touch. Calf is soft and nontender. Minimal discomfort laterally with log roll of the hip and range of motion. Tenderness to palpation about the lower lumbar spine. No noted. Results & Data ([facility]) Vital Signs (Past 12 Hours) Vital Signs Temp Pulse Resp BP Pulse Ox 02/29/20 07:24 36.6 C 89 16 184/75 H 98 02/28/20 22:54 36.6 C 91 H 18 151/75 H 97 Laboratory Results 02/29/20 02/29/20 02/29/20 Range/Units 04:46 04:46 04:46 WBC 7.22 (4.8-10.8) K/uL RBC 4.15 L (4.2-5.4) M/uL Hgb 14.0 (12.0-16.0) g/dL Hct 40.9 (37-47) % MCV 98.6 (80-100) fL MCH 33.7 (25-34) pg MCHC 34.2 (32-36) g/dL RDW Std Deviation 47.0 H (36.4-46.3) fL RDW Coeff of Chiara 13.0 (11.5-14.5) % Plt Count 314 (130-400) K/uL MPV 9.6 (7.4-10.4) fL Sodium 131 L (136-145) mmol/L Potassium 4.6 (3.5-5.1) mmol/L Chloride 97 L (98-107) mmol/L Carbon Dioxide 28 (21-32) mmol/L Anion Gap 6.0 (3-11) BUN 22 H (7-18) mg/dl Creatinine 0.96 (0.6-1.2) mg/dl Est Cr Clr Drug Dosing 29.7 ml/min Est GFR ( Amer) 61.6 Est GFR (Non-Af Amer) 53.2 BUN/Creatinine Ratio 22.7 H (10-20) Glucose 103 H (70-99) mg/dl Calcium 9.2 (8.5-10.1) mg/dl 25-OH Vitamin D Total 48.2 (30-100) ng/ml Vit D 1,25-Dihyd Total 1,25 Dihydroxy Vit D2 1,25 Dihydroxy Vit D3 02/28/20 Range/Units 07:00 WBC (4.8-10.8) K/uL RBC (4.2-5.4) M/uL Hgb (12.0-16.0) g/dL Hct (37-47) % MCV (80-100) fL MCH (25-34) pg MCHC (32-36) g/dL RDW Std Deviation (36.4-46.3) fL RDW Coeff of Chiara (11.5-14.5) % Plt Count (130-400) K/uL MPV (7.4-10.4) fL Sodium (136-145) mmol/L Potassium (3.5-5.1) mmol/L Chloride (98-107) mmol/L Carbon Dioxide (21-32) mmol/L Anion Gap (3-11) BUN (7-18) mg/dl Creatinine (0.6-1.2) mg/dl Est Cr Clr Drug Dosing ml/min Est GFR ( Amer) Est GFR (Non-Af Amer) BUN/Creatinine Ratio (10-20) Glucose (70-99) mg/dl Calcium (8.5-10.1) mg/dl 25-OH Vitamin D Total (30-100) ng/ml Vit D 1,25-Dihyd Total Pending 1,25 Dihydroxy Vit D2 Pending 1,25 Dihydroxy Vit D3 Pending Diagnostic Findings Service Date: 02/28/20 XR pelvis 1-2V routine, XR femur RT 2V routine FINDINGS: PELVIS: Right hip total joint arthroplasty. Moderate left hip osteoarthritis. Demineralized appearance of the bones. No acute fracture or dislocation of the pelvis or left hip. Ill-defined linear lucencies with cortical irregularity involves the right greater trochanter. Vascular calcifications are noted. Advanced degeneration of the imaged lumbar spine. RIGHT FEMUR: Ill-defined linear lucencies with cortical irregularity involves the greater trochanter. Right hip total joint arthroplasty with hardware appearing intact. Mild lateral right hip soft tissue swelling. Osteoarthritis of the right knee. The mid and distal femur appear intact. Radiology IMPRESSION: 1. Ill-defined linear lucencies with equivocal cortical irregularity involving the lateral cortex of the right greater trochanter is best appreciated on the AP view of the pelvis, suspicious for acute nondisplaced fracture. 2. Right hip total joint arthroplasty. 3. Moderate left hip osteoarthritis. I, Dr. Santana, personally reviewed the studies and agree with above, she has a [place] A postop periprosthetic right hip fracture, which is a nondisplaced greater trochanteric fracture; however, #2 is a cemented right hip hemiarthroplasty. In addition there is significant degenerative changes of the lower lumbar spine. (1) Closed trochanteric fracture of hip Encounter type: initial encounter Laterality: right Qualified Code(s): S72.101A - Unspecified trochanteric fracture of right femur, initial encounter for closed fracture
--- NOTE | 2020-02-29 11:58 | Hospitalist Progress Note ---
Date of Service February 29, 2020 Assessment & Plan (1) Acute hip pain: * Obs med/surg. Xray with ill-defined linear lucencies with equivocal cortical irregularity involving lateral cortex of RIGHT greater trochanter, suspicious for acute nondisplaced fracture. ?etiology as patient states she did not have any falls (outside of one at end of December/beginning of January) * Orthopedic consult -- appreciate assistance. * PT/OT -- non-weightbearing R until seen by Ortho --> to be completed tomorrow as patient with increased pain today and unable to participate * Pain control -- tylenol Q8, Tramadol, Dilaudid prn --> patient only received Islip x 1 and Dilaudid x 1 but had not received any last evening or overnight * Pain management consulted for sciatica for possible injection to see if that will improve pain control as well. She had been to chiropractor in past without success * Vit D level low end of normal, but wnl at 48.2 -- will continue outpatient Vit D 2000 IU daily * CM consult -- will need assistance with placement -- had issues with [facility] and [facility] in the past and family/patient would like alternative options but is now agreeable for [facility]. (2) Closed trochanteric fracture of hip: * See above (3) Recurrent UTI: * Has been seen by Urology -- to be on continuous nitrofurantoin for prophylaxis. Hx bilateral nephrolithiasis. * UA without evidence of infection on admission. * Continue outpatient nitrofurantoin (4) HTN (hypertension): * Chronic. Controlled. Currently, BP 140/82 * Continue home lisinopril 20mg (5) Chronic kidney disease, stage 3a: * Reported history * Cr stable at 0.96, eGFR 53.2 * BMP in AM (6) Hyperlipidemia: * Chronic, * Continue home atorvastatin (7) Rheumatoid arthritis: * Chronic. On sulfasalazine, prednisone 5mg daily outpatient * Continue sulfasalazine. * Increased prednisone to 40mg PO from 5mg for stress dosing while inpatient --> will need decreased prior to d/c * Continue to monitor (8) History of pulmonary embolism: * Secondary to immobility and following hip surgery earlier this year --> initiated on heparin gtt and dicharged on Xarelto * Continue home Xarelto 20mg (9) Hyponatremia: * Hx chronic hyponatremia. Had urine studies Sep 2019 with urine osm 446, urine sodium 34, serum osm 259 on admission --> consistent with hypovolemic hyponatremia at that time. TSH was normal (no signs of adrenal insufficiency). May need fluid restriction/oral sodium replacement if persists pending BMP in AM * Na low at 131, although patient had poor PO intake and was NPO after midnight Of note, patient with apical pulmonary nodule which could be concerning for malignancy given history of smoking. ?SIADH picture * NSS @ 80cc/hr * BMP in AM (10) Anemia: * Hx of. H/h stable 13.4/41.6. No s/sx bleeding * MCV >100. Folate and B12 have been wnl in the past. See above * H/h stable (11) DVT prophylaxis: * Xarelto Dispo: Pain management consult pending, PT/OT. Likely will need placement at discharge. Admission and Anticipated Discharge Date Admission Date: February 28, 2020 Supervising Physician Co-Signing Physician Notes PA Supervision Note: I did not personally see or examine the patient today, but I verified all price points of RAMESH Veliz's assessment and plan with the following exceptions/additions: 89yo female with multiple admissions in 2019 (kidney stones, hyponatremia, PE, etc), steroid-dependent RA, CKD stage 3 - presenting w/ severe right hip pain in absence of fall/trauma. Found to have greater trochanter periprosthetic fracture on right side. 1. right hip pain - suspected greater trochanter fracture - likely osteoporotic fracture 2. h/o PE on xarelto-continue for total of 6 months 3. h/o recurrent UTIs on macrobid prophy 4. steroid-dependent RA-on stress dose steroids 5. hyponatremia - chronic - not on diuretic therapy; low-grade SIADH Continue pain control, PT/OT evals appreciated, Pain Pam and Ortho consults Subjective Patient evaluated this morning. Continues to be painful in the region of her right hip, which is made worse with positional changes. Discussed pain medicati ons ordered but that she will need to ask for them. She states she believes her sciatica is acting up and exacerbating this pain. Agreeable to see if pain management able to perform injection. She also states she has not had her CBD oil that she typically uses at home and that may be contributing, as she states this typically provides sufficient relief for her arthritic pains. Denies any chest pain or shortness of breath, fevers or chills. Plans for orthopedic evaluation today with possible need for placement given this will likely be non-operative management. Patient did state that she may be agreeable to [facility] despite previous comments. Eating/drinking without difficulty. Passing gas but states she has not had a BM, which is unusual for her as she is regular daily. Review of Systems Review of Systems: All systems reviewed & are unremarkable except as noted in HPI & below Physical Exam Constitutional: WD/WN, vitals as above no acute distress Eyes: PERRL ENMT: dry mm Neck: trachea midline, no thyromegaly Respiratory: normal respiratory effort; no respiratory distress and no labored breathing Auscultation: + diminished lung sounds (bases); no crackles and no wheezes Cardiovascular: RRR, no murmur, no edema Gastrointestinal (Abdomen): normal bowel sounds, soft, nontender, no hepatosplenomegaly Musculoskeletal: Head/Neck/Chest: normocephalic and head atraumatic Tender to palpation over region of RIGHT greater trochanter Pain to lateral thigh with knee flexes. No pain with AROM ankle. Calves nontender Decreased sensation to light touch R foot 2+ pulses pt, dp pulses Neurologic: patellar DTR's 2+ bilat, sensation intact Psychiatric: A+Ox3, euthymic affect Genitourinary: catheter present with yellow urine Lymphatic: no cervical or axillary lymphadenopathy Results & Data Results & Data ([facility]) Vital Signs (Past 12 Hours) Vital Signs Temp Pulse Resp BP Pulse Ox 02/29/20 07:24 36.6 C 89 16 184/75 H 98 Laboratory Results 02/29/20 02/29/20 02/29/20 Range/Units 04:46 04:46 04:46 WBC 7.22 (4.8-10.8) K/uL RBC 4.15 L (4.2-5.4) M/uL Hgb 14.0 (12.0-16.0) g/dL Hct 40.9 (37-47) % MCV 98.6 (80-100) fL MCH 33.7 (25-34) pg MCHC 34.2 (32-36) g/dL RDW Std Deviation 47.0 H (36.4-46.3) fL RDW Coeff of Chiara 13.0 (11.5-14.5) % Plt Count 314 (130-400) K/uL MPV 9.6 (7.4-10.4) fL Sodium 131 L (136-145) mmol/L Potassium 4.6 (3.5-5.1) mmol/L Chloride 97 L (98-107) mmol/L Carbon Dioxide 28 (21-32) mmol/L Anion Gap 6.0 (3-11) BUN 22 H (7-18) mg/dl Creatinine 0.96 (0.6-1.2) mg/dl Est Cr Clr Drug Dosing 29.7 ml/min Est GFR ( Amer) 61.6 Est GFR (Non-Af Amer) 53.2 BUN/Creatinine Ratio 22.7 H (10-20) Glucose 103 H (70-99) mg/dl Calcium 9.2 (8.5-10.1) mg/dl 25-OH Vitamin D Total 48.2 (30-100) ng/ml PG Care Time/CCT Total # of Minutes Spent Total Time Spent with Patient: Total time spent is greater than 50% in coordination of care (as documented) at patient's floor/unit and/or counseling patient: Coding Level of Care Code 04288 Subseq Hosp Care Lvl 3 Diagnoses Acute hip pain M25.551 Laterality: right Closed trochanteric fracture of hip S72.101A Encounter type: initial encounter Laterality: right Recurrent UTI N39.0 HTN (hypertension) I10 Chronic kidney disease, stage 3a N18.3 Hyperlipidemia E78.5 Hyperlipidemia type: unspecified Rheumatoid arthritis M06.9 Rheumatoid arthritis location: unspecified site Rheumatoid factor presence: unspecified presence History of pulmonary embolism Z86.711 Hyponatremia E87.1 Anemia D64.9 DVT prophylaxis Z29.9 (1) Acute hip pain Laterality: right Qualified Code(s): M25.551 - Pain in right hip (2) Rheumatoid arthritis Rheumatoid arthritis location: unspecified site Rheumatoid factor presence: unspecified presence Qualified Code(s): M06.9 - Rheumatoid arthritis, unspecified (3) Closed trochanteric fracture of hip Encounter type: initial encounter Laterality: right Qualified Code(s): S72.101A - Unspecified trochanteric fracture of right femur, initial encounter for closed fracture (4) Hyperlipidemia Hyperlipidemia type: unspecified Qualified Code(s): E78.5 - Hyperlipidemia, unspecified
[2020-02-29] MEDS: POLYETHYLENE (MIRALAX) 17 GM PACK PO SCH (12:22)
[2020-02-29] MEDS: DOCUSATE SODIUM 100 MG CAP PO SCH ×2 (14:45→19:44)
[2020-02-29] MEDS: TAMSULOSIN HCL 0.4 MG CAP PO SCH (19:45)
[2020-02-29] MEDS: nitrofurantoin macrocrystaL 50 MG CAP PO SCH (19:46)
[2020-02-29] MEDS: MELATONIN 3 MG TAB PO SCH (19:46)
[2020-02-29] MEDS: TRAMADOL HCL 50 MG TABLET PO PRN (23:06)
[2020-03-01] MEDS: HYDROCODONE/ACETAMINOPHEN 10/325 TAB PO PRN ×3 (02:39→18:38)
[2020-03-01] MEDS: HYDROmorphone INJ 0.5 MG/0.5 ML SYR IV PRN (04:30)
[2020-03-01 05:23] LABS: Hematocrit (blood only) 39.9 % (37-47); Hemoglobin 13.5 g/dL (12.0-16.0); Mean Corpuscular Hemoglobin 33.8 pg (25-34); Mean Corpuscular Hgb Conc 33.8 g/dL (32-36); Mean Platelet Volume 9.8 fL (7.4-10.4); Platelet Count 304 K/uL (130-400); RDW Standard Deviation 47.7 fL (36.4-46.3); Red Blood Count 3.99 M/uL (4.2-5.4)
[2020-03-01 05:55] LABS: BUN Creatinine Ratio 27.6 (10-20); Calcium 8.7 mg/dl (8.5-10.1); Est GFR (African American) 85.8; Est GFR (Non-African American) 74.1; Potassium 4.9 mmol/L (3.5-5.1)
[2020-03-01] MEDS: TRAMADOL HCL 50 MG TABLET PO PRN (06:10)
[2020-03-01] MEDS: ACETAMINOPHEN 500 MG TAB PO SCH (06:10)
--- NOTE | 2020-03-01 08:40 | Pain Management Consultation ---
Date of Consultation March 01, 2020 Assessment & Plan (1) Closed trochanteric fracture of hip: Encounter type: initial encounter Laterality: right Qualified Code(s): S72.101A - Unspecified trochanteric fracture of right femur, initial encounter for closed fracture Present on Admission?: Yes (2) Acute hip pain: Laterality: right Qualified Code(s): M25.551 - Pain in right hip Present on Admission?: Yes (3) History of pulmonary embolism: Present on Admission?: Yes (4) Chronic anticoagulation: Present on Admission?: Yes (5) Degenerative joint disease (DJD) of lumbar spine: * Predominant complaint is right lateral hip pain associate at site of nondisplaced fracture-patient does not appear to have a significant radicular component to her pain complaints at this time. Reviewed prior lumbar spine CT January 18, 2020 which revealed severe degenerative disc changes throughout with posterior bulging component at all levels. Would need to consider MRI in an attempt to further define etiology of any radicular pain complaint. Furthermore, she is not currently a candidate for lumbar STELLA at this time due to her Xarelto therapy status post recent history of PE. Will defer to Ortho regarding the possibility of pursuing a right greater trochanteric bursa region injection. * Will add Lidoderm patch applied to the right hip region * Patient was encouraged utilize her as needed analgesic regimen as prescribed Present on Admission?: Yes History of Present Illness Reason for Consultation: Right lateral hip pain Requesting Physician: Magi Washington PA-C Attending Physician: Alessandra Sultana MD History of Present Illness Mrs. Ann is an 89-year-old white female who was admitted due to predominant complaint of acute right lateral hip pain. The patient has history of right CALDERON performed by Dr. Santana in September 2019 with multiple admissions since that time for hyponatremia, recurrent UTI and PE currently on Xarelto therapy. Patient reports some chronic right hip pain since the time of her surgical intervention, but she reports a recent increase in the lateral hip pain. She did have a fall in December. She denies a recent injury contributing to her increased pain over the past few days. She does have some chronic paresthesias traveling to level the foot in a nondermatomal pattern but denies any recent change in the frequency and/or severity of this complaint. She denies a true radicular pattern to her pain complaints at this time. She does have some history of chronic axial low back pain as well. Patient reports that her pain is localized to the right lateral hip aggravated with positional change. She reported her pain was fairly significant throughout last night with poor sleep quality and quantity. She is finding some minimal relief from her current opiate analgesic therapy. She is rating her pain at a 7-8/10. She denies left lower extremity radicular pain complaints. Her pain can travel into the groin region as well. Patient has been unable to get out of bed due to her pain and discomfort. She has no reported side effects from the hydrocodone or the IV hydromorphone therapies. Patient has no further constitutional complaints. Plan of care discussed with Dr. Sheikh. Pain Assessment Full Body Front + Back: 1. Right lateral hip Pain scale - at its best (0-10): 7 Pain scale - at its worst (0-10): 9 Allergies Allergy/AdvReac Type Severity Reaction Status Date / Time Sulfa (Sulfonamide Allergy Intermediate Rash Verified 02/28/20 08:00 Antibiotics) [email or web address] [From Myrbetriq] AdvReac Intermediate hypertensio Verified 02/28/20 08:00 n nicotine AdvReac Mild PATCH-SKIN Verified 02/28/20 08:00 IRRITATION shrimp AdvReac Mild Photosensit Verified 02/28/20 08:00 ivity Home Medications Home Medications Medication Instructions Recorded Confirmed Type Centrum Silver Women 1 tab PO QAM 07/06/18 02/28/20 History atorvastatin 20 mg PO QAM 09/05/19 02/28/20 History cholecalciferol (vitamin D3) 2,000 unit PO QAM 09/05/19 02/28/20 History [Vitamin D3] duloxetine [Cymbalta] 20 mg PO QAM 09/05/19 02/28/20 History prednisone 5 mg PO QAM 09/05/19 02/28/20 History polyethylene glycol 3350 [Miralax] 17 g PO QAM PRN 09/28/19 02/28/20 History lisinopril 20 mg PO QAM 11/11/19 02/28/20 History acetaminophen [Tylenol Extra 1,000 mg PO TID 11/12/19 02/28/20 History Strength] tamsulosin 0.4 mg capsule 0.4 mg PO HS #30 cap 12/01/19 02/28/20 Rx Cbd Oil 1 ml PO HS 01/18/20 02/28/20 History Xarelto 20 mg PO QAM 01/18/20 02/28/20 History acetaminophen 500 mg PO UD 01/18/20 02/28/20 History melatonin 6 mg PO HS 01/18/20 02/28/20 History sulfasalazine 500 mg PO BID 01/18/20 02/28/20 History tramadol 50 mg PO AMHS 01/18/20 02/28/20 History nitrofurantoin macrocrystal 50 mg 50 mg PO HS #90 cap 02/15/20 02/28/20 Rx capsule fluconazole 100 mg tablet 100 mg PO DAILY #3 tab 02/20/20 02/28/20 Rx aspirin 81 mg PO BID 02/28/20 02/28/20 History Pain History Pain Intensity Pain scale - at its best (0-10): 7 Pain scale - at its worst (0-10): 9 Patient History Medical History Anemia Anxiety Depression Glaucoma (Chronic) Hearing deficit (Chronic) BL ROMERO Hyperlipidemia (Chronic) Hyponatremia Kidney stones (Chronic) Osteoarthritis (Chronic) Rheumatoid arthritis (Chronic) Surgical History Hip fracture requiring operative repair History of colonoscopy (Resolved) History of cystoscopy WITH STENT History of tooth extraction (Resolved) Nausea and vomiting after administration of anesthetic agent Status post cystoscopy with ureteral stent placement 10/28/2019 [facility] Family History Father Hypertension Other No pertinent family history in first degree relatives Social History Preferred Language: Khmer Communication Ability: Effective Visual Impairment: No Limitations Photography Intern Required: No Beliefs That Will Affect Care: None marital status: / Current Living Situation: Alone Other Information That Helps Us Care for You: No Feels Safe at Home: Yes Safety Concerns: Feels Safe At This Time Smoking Status: Former smoker Tobacco Type: cigarettes ; Cigarettes Per Day: 20-40 ; Do You Dip or Chew Tobacco: No ; Second Hand Exposure: No ; Tobacco Cessation Education Requested by Patient: No Hx Alcohol Use: Yes Alcohol type: wine Alcohol Intake Frequency Comment: occasional, rare Hx Substance Use: No Physical Exam Physical Exam: General: Patient sitting quietly in exam room in no acute distress. Speech and thought process appropriate. Mood and affect appropriate. Cognition intact. Head: Normocephalic and atraumatic. ENT: No evidence of nasal or oral mucosal lesions. Mucous membranes are moist. Eyes: Pupils equal round reactive to light. Neck: Supple without adenopathy and full range of motion. Chest: Nontender to palpation of the costosternal junction. Abdomen: Soft and nondistended. No organomegaly. Bowel sounds active. Back/spine: Some generalized tenderness over the lumbosacral region which is nonfocal. Discomfort appreciated with any attempted logrolling. Lower extremities: Exquisitely tender over the right lateral hip/greater trochanteric region to palpation. Increased pain with any movement of the right lower extremity was appreciated with guarding/apprehension. Sensation is intact distally to sharp and dull. Strength was 5/5 with dorsi and plantar flexion. Patient is nontender throughout the quadricep musculature or the IT band region. Any attempted range of motion of the right hip increased lateral hip pain. She has a well-healed surgical incision status post CALDERON. Neurologic: Cranial nerves grossly intact. Ambulatory function not witnessed. Results Diagnostic Review Radiology Findings: [place], [place] [phone] XRay Report Patient: CHARLY ANN Date: 02/28/20 MR#: [id number]: [address] [place] [address] Acct ID:[id number]: Date: [address] [place] [address] Zip: [place] [address] Age: 89Location: ED Sex: F Room/Bed: Att Phy:Diagnosis: R hip pain Sidra Phy: Ben Schmidt MDServjayro Date: 02/28/20 Fam Phy:Interpreting Phy: Troy Feldman Admit Phy: Ordering Phy: Heron Anderson MD cc: ~ XR pelvis 1-2V routine, XR femur RT 2V routine HISTORY: 89 years-old Female Pt c/o Rt hip pain acute pelvic and right hip pain COMPARISON: Pelvis radiograph 01/18/2020 TECHNIQUE: AP view of the pelvis with 2 views of the right femur FINDINGS: PELVIS: Right hip total joint arthroplasty. Moderate left hip osteoarthritis. Demineralized appearance of the bones. No acute fracture or dislocation of the pelvis or left hip. Ill-defined linear lucencies with cortical irregularity involves the right greater trochanter. Vascular calcifications are noted. Advanced degeneration of the imaged lumbar spine. RIGHT FEMUR: Ill-defined linear lucencies with cortical irregularity involves the greater trochanter. Right hip total joint arthroplasty with hardware appearing intact. Mild lateral right hip soft tissue swelling. Osteoarthritis of the right knee. The mid and distal femur appear intact. IMPRESSION: 1. Ill-defined linear lucencies with equivocal cortical irregularity involving the lateral cortex of the right greater trochanter is best appreciated on the AP view of the pelvis, suspicious for acute nondisplaced fracture. 2. Right hip total joint arthroplasty. 3. Moderate left hip osteoarthritis. ACT 112: Negative or not required by law. The above report was generated using voice recognition software. It may contain grammatical, syntax or spelling errors. Electronically signed by: Jason Feldman M.D. 02/28/2020 7:46 AM Dictated: 02/28/20 0742 Transcribed: 02/28/20 0742 Previous Records Review Previous Records: personally reviewed by me
[2020-03-01] MEDS: SODIUM CHLORIDE 0.9% 1000ML 1,000 ML IV SCH (09:05)
[2020-03-01] MEDS: ATORVASTATIN 20 MG TAB PO SCH (09:07)
[2020-03-01] MEDS: CEROVITE ADV FORMULA TAB PO SCH (09:07)
[2020-03-01] MEDS: sulfaSALAzine 500 MG TABEC PO SCH ×2 (09:07→20:40)
[2020-03-01] MEDS: lisinopriL 20 MG TAB PO SCH (09:07)
[2020-03-01] MEDS: ASPIRIN 81 MG ECTAB PO SCH (09:08)
[2020-03-01] MEDS: DOCUSATE SODIUM 100 MG CAP PO SCH ×2 (09:08→20:41)
[2020-03-01] MEDS: CHOLECALCIFEROL 1,000 UNITS 25 MCG TAB PO SCH (09:08)
[2020-03-01] MEDS: DULOXETINE HCL 20 MG CAP PO SCH (09:08)
[2020-03-01] MEDS: POLYETHYLENE (MIRALAX) 17 GM PACK PO SCH (09:09)
[2020-03-01] MEDS: predniSONE 20 MG TAB PO SCH (09:09)
--- NOTE | 2020-03-01 09:42 | Orthopedic Progress Note ---
Date of Service March 01, 2020 Assessment & Plan (1) Trochanteric fracture of right femur: Reviewed pain management's note. Appreciate their input. Patient is not a candidate for injections due to being on Xarelto. Patient is painful this morning and highly frustrated. She verbalizes that she feels she has been going downhill since her fall in September. She states she cannot put up with the pain for much longer. I will discuss her care further with Dr. Santana. Lidocaine patch has been added and we will see how this affects her discomfort. I, Dr. Santana, saw and examined the patient and discussed the management with my PA. I reviewed my PAs note and agree with the documented findings and the plan of care I developed. I spoke with the patient as well as the primary care team, it is unfortunate that she is not a candidate for epidural injections. She is not a candidate for trochanteric bursa injection, as do not want to create an open fracture. May trial Celebrex as it does not have any antiplatelet effect. Again she is not a candidate for surgical intervention for this nondisplaced greater troches fracture and just requires protected weightbearing. The patient understood all my instructions and explanation; all their questions were satisfactorily addressed. The patient will follow-up 2 weeks after her discharge. Admission and Anticipated Discharge Date Admission Date: February 29, 2020 Subjective Patient is seen in her room this morning. She is currently expressing that she has severe pain. She states she did not sleep well at night. She states she cried for most of the night. She points to the right hip as her area of discomfort. She also complains of back pain at this time. She states she was evaluated by pain management and was told that she is not a candidate for injection therapy in her back. She has not been out of bed yet this morning. Review of Systems Review of Systems: Unchanged from yesterday. Physical Exam Physical Exam: Right hip evaluation reveals focal pain with palpation over the greater trochanter. She has no discomfort with palpation over her distal thigh, knee, goddard, ankle, or foot. Intact motor function of the ankle and toes. Attempts at motion of the right knee and hip cause pain over her greater trochanter. She also points to her buttock and SI joint as the area of discomfort with motion. Neurologic: Gross sensation is intact across the right leg by soft touch today. Peripheral pulses are 2+. I, Dr. Santana, agree with the above findings, she is neurovascularly intact. She was sitting comfortably at bedside eating lunch. In addition she has tenderness palpation about the lower lumbar spine. Results & Data ([facility]) Vital Signs (Past 12 Hours) Vital Signs Temp Pulse Resp BP BP Pulse Ox 03/01/20 07:15 36.4 C L 85 16 187/71 H 98 03/01/20 04:35 157/79 H 03/01/20 03:28 85 196/71 H 198/67 H 02/29/20 23:35 77 194/74 H 197/70 H 02/29/20 23:16 36.7 C 78 16 193/75 H 96
[2020-03-01] MEDS ORDERED: MoRPHine SULFATE 2 MG/ML CARP IV STA (09:55)
[2020-03-01] MEDS: LIDOCAINE 5% 1 PATCH TD SCH (10:22)
--- NOTE | 2020-03-01 10:55 | Hospitalist Progress Note ---
Date of Service March 01, 2020 Assessment & Plan (1) Closed trochanteric fracture of hip: * Obs med/surg. Xray with ill-defined linear lucencies with equivocal cortical irregularity involving lateral cortex of RIGHT greater trochanter, suspicious for acute nondisplaced fracture. ?etiology as patient states she did not have any falls (outside of one at end of December/beginning of January). Unable to determine clear cause outside of possibility of unreported trauma. Vitamin D level low normal at 48.2 and on Vit D replacement therapy * Orthopedic consult -- appreciate assistance. Non-operative management at this time * PT/OT -- weightbearing as tolerated --> seen this morning but pt was too blair nful. To reassess after morphine administration * CM assisting with placement * Discussed with orthopedic team and pain management team. Provided contact for pain management provider to coordinate ongoing care. --> Recommending initiating Celebrex. No platelet activity, so not as high risk for bleeding (2) Acute hip pain: * Ortho, pain management consults as above * Pain control -- tylenol Q8, Tramadol, Dilaudid prn --> Morphine 2mg IV x 1 and lidocaine patch administered this morning with relief. Will order prn for today with hopes of transitioning back to solely PO tomorrow for possible discharge to [facility] * Pain management consulted for sciatica for possible injection to see if that will improve pain control as well -- appreciate input. Patient not candidate at this time as she is on Xarelto for recent Hx PE. Per note, they will reach out to ortho about possible R greater trochanteric bursa injection Added lidoderm patch to R hip Prednisone 20mg x 1 * No injections planned currently (3) History of pulmonary embolism: * Secondary to immobility and following hip surgery earlier this year --> initiated on heparin gtt and dicharged on Xarelto * Continue home Xarelto 20mg x total of 6 months (4) Degenerative joint disease (DJD) of lumbar spine: * Predominant complaint is right lateral hip pain associate at site of nondisplaced fracture-patient * lumbar spine CT January 18, 2020 which revealed severe degenerative disc changes throughout with posterior bulging component at all levels. --> Would need to consider MRI in an attempt to further define etiology of any radicular pain complaint. * Not currently a candidate for lumbar STELLA at this time 2/2 Xarelto therapy for recent hx PE --> Deferring to Ortho for possible greater troch bursa injection * Lidoderm patch applied to the right hip region * Patient was encouraged utilize her prn medications as needed (5) Recurrent UTI: * Has been seen by Urology -- to be on continuous nitrofurantoin for prophylaxis. Hx bilateral nephrolithiasis. * UA without evidence of infection on admission. * Continue outpatient nitrofurantoin (6) HTN (hypertension): * Chronic. Controlled. * Elevated secondary to pain --> now better controlled at 145/66 with adequate pain control * Continue home lisinopril 20mg * Hydralazine prn * Continue to monitor (7) Chronic kidney disease, stage 3a: * Reported history * Cr stable at 0.73, eGFR up to 74 from 53, BUN/Cr elevated --> gentle hydration as patient poor PO intake secondary to pain. Will d/c now that pain better controlled and patient eating * BMP in AM (8) Hyperlipidemia: * Chronic, * Continue home atorvastatin (9) Rheumatoid arthritis: * Chronic. On sulfasalazine, prednisone 5mg daily outpatient * Continue sulfasalazine. * Increased prednisone to 40mg PO from 5mg for stress dosing while inpatient --> will change back to home dosing as pt BP elevated and not undergoing surgery * Continue to monitor (10) Hyponatremia: * Hx chronic hyponatremia. Had urine studies Sep 2019 with urine osm 446, urine sodium 34, serum osm 259 on admission --> consistent with hypovolemic hyponatremia at that time. TSH was normal (no signs of adrenal insufficiency). May need fluid restriction/oral sodium replacement if persists pending BMP in AM * Na low at 131 yesterday NS @ 80cc/hr ordered, Na improved to 132 Of note, patient with apical pulmonary nodule which could be concerning for malignancy given history of smoking. ?SIADH picture. Could consider fluid restriction/salt tablets although BP elevated and patient with poor intake currently secondary to pain * BMP in AM (11) Anemia: * Hx of. H/h stable 13.4/41.6. No s/sx bleeding * MCV >100. Folate and B12 have been wnl in the past. See above * H/h stable (12) DVT prophylaxis: * Xarelto, SCDs Dispo: likely to remain inpatient at least overnight, possible discharge tomorrow if pain under better control Admission and Anticipated Discharge Date Admission Date: February 29, 2020 Supervising Physician Co-Signing Physician Notes PA Supervision Note: I did not personally see or examine the patient today, but I verified all price points of RAMESH Veliz's assessment and plan with the following exceptions/additions: None I discussed the case today with Pain Man RAMESH and with Dr. Santana of Ortho Subjective Patient evaluated this morning. Upset about getting multiple messages from various providers. Was hopeful for injection from pain management this morning but was told she is not a candidate as she has been on blood thinners. She continues to express significant R lateral hip pain in the region of her healed incision, but also notes a sharp stabbing sensation from the region of her posterior buttock down her right leg that is typical of her sciatica pain. She states this radiating pain is not always constant, as the pain in her right hip has been, but that it is significant and causes her great distress. Denies numbness/tingling. She states she had a terrible night and was unable to sleep because of the pain, rating it an 8-9/10 currently. She states she would ideally like an injection for immediate relief. Discussed that I will reach out to both orthopedic and pain management team to ensure we have a clearer plan for her. Of note, she refused PT this morning secondary to pain and questioned what they would be making her do. As discussed previously, she will be weight bearing as tolerated to help with healing. She also states "what happened to the good days when you came to the hospital and got a shot of morphine for pain?". I discussed with Mrs. Dumont that we did have Dilaudid ordered for her, but that if she has found more relief with morphine in the past that we can trial that and see how she feels. Patient agreeable to plan at this time. Denies fevers, chills, chest pain, shortness of breath, abdominal pain, n/v, dysuria at this time. Review of Systems Review of Systems: All systems reviewed & are unremarkable except as noted in HPI & below Physical Exam Constitutional: WD/WN, vitals as above + uncomfortable Eyes: PERRL Neck: trachea midline, no thyromegaly Respiratory: normal respiratory effort; no respiratory distress and no labored breathing Auscultation: + diminished lung sounds (bases); no crackles and no wheezes Cardiovascular: RRR, no murmur, no edema Gastrointestinal (Abdomen): normal bowel sounds, soft, nontender, no hepatosplenomegaly Musculoskeletal: Head/Neck/Chest: normocephalic and head atraumatic Tender to palpation over region of RIGHT greater trochanter. Increased pain with any movement of right hip. No pain with AROM ankle. Calves nontender NVI 2+ pulses pt, dp pulses Neurologic: patellar DTR's 2+ bilat, sensation intact Psychiatric: A+Ox3, euthymic affect Lymphatic: no cervical or axillary lymphadenopathy Results & Data Results & Data ([facility]) Vital Signs (Past 12 Hours) Vital Signs Temp 36.7 C 03/01/20 14:55 Pulse 89 03/01/20 14:55 Resp 19 03/01/20 14:55 BP 145/66 H 03/01/20 14:55 Pulse Ox 94 03/01/20 14:55 Intake & Output 02/29/20 03/01/20 03/01/20 18:59 06:59 18:59 Intake Total 300 / 8446.970 2304.333 / 5586.438 5143 / 1200 Output Total 400 / 1425 1025 / 1425 825 / 825 Balance -100 / 188.333 288.333 / 188.333 375 / 375 Weight 46.7 kg Intake: IV 833.333 / 606.766 9345 / 1000 Nss 1000ML 1,000 ml @ 80 mls/hr 833.333 / 751.796 5023 / 1000 IV .[id number] [facility] Rx#:[id number] Oral 300 / 780 480 / 780 200 / 200 Output: Urine Amount (Catheter) 400 / 1425 1025 / 1425 825 / 825 Kmi/Indwelling 400 / 1425 1025 / 1425 825 / 825 Laboratory Results 03/01/20 03/01/20 Range/Units 04:41 04:41 WBC 6.80 (4.8-10.8) K/uL RBC 3.99 L (4.2-5.4) M/uL Hgb 13.5 (12.0-16.0) g/dL Hct 39.9 (37-47) % MCV 100.0 (80-100) fL MCH 33.8 (25-34) pg MCHC 33.8 (32-36) g/dL RDW Std Deviation 47.7 H (36.4-46.3) fL RDW Coeff of Chiara 13.0 (11.5-14.5) % Plt Count 304 (130-400) K/uL MPV 9.8 (7.4-10.4) fL Sodium 132 L (136-145) mmol/L Potassium 4.9 (3.5-5.1) mmol/L Chloride 100 (98-107) mmol/L Carbon Dioxide 27 (21-32) mmol/L Anion Gap 5.0 (3-11) BUN 20 H (7-18) mg/dl Creatinine 0.73 (0.6-1.2) mg/dl Est Cr Clr Drug Dosing 39.0 ml/min Est GFR ( Amer) 85.8 Est GFR (Non-Af Amer) 74.1 BUN/Creatinine Ratio 27.6 H (10-20) Glucose 96 (70-99) mg/dl Calcium 8.7 (8.5-10.1) mg/dl PG Care Time/CCT Total # of Minutes Spent Total Time Spent with Patient: Total time spent is greater than 50% in coordination of care (as documented) at patient's floor/unit and/or counseling patient: Coding Level of Care Code 15718 Subseq Hosp Care Lvl 3 Diagnoses Closed trochanteric fracture of hip S72.101A Encounter type: initial encounter Laterality: right Acute hip pain M25.551 Laterality: right History of pulmonary embolism Z86.711 Degenerative joint disease (DJD) of lumbar spine M47.816 Recurrent UTI N39.0 HTN (hypertension) I10 Chronic kidney disease, stage 3a N18.3 Hyperlipidemia E78.5 Hyperlipidemia type: unspecified Rheumatoid arthritis M06.9 Rheumatoid arthritis location: unspecified site Rheumatoid factor presence: unspecified presence Hyponatremia E87.1 Anemia D64.9 DVT prophylaxis Z29.9 (1) Acute hip pain Laterality: right Qualified Code(s): M25.551 - Pain in right hip (2) Rheumatoid arthritis Rheumatoid arthritis location: unspecified site Rheumatoid factor presence: unspecified presence Qualified Code(s): M06.9 - Rheumatoid arthritis, unspecified (3) Closed trochanteric fracture of hip Encounter type: initial encounter Laterality: right Qualified Code(s): S72.101A - Unspecified trochanteric fracture of right femur, initial encounter for closed fracture (4) Hyperlipidemia Hyperlipidemia type: unspecified Qualified Code(s): E78.5 - Hyperlipidemia, unspecified
[2020-03-01] MEDS ORDERED: predniSONE 20 MG TAB PO STA (11:49)
[2020-03-01] MEDS: RIVAROXABAN 20 MG TAB PO SCH (12:42)
[2020-03-01] MEDS ORDERED: ACETAMINOPHEN 500 MG TAB PO PRN (13:22)
[2020-03-01] MEDS ORDERED: MoRPHine SULFATE 2 MG/ML CARP IV PRN (13:22)
[2020-03-01] MEDS: CELECOXIB 100 MG CAP PO SCH (20:39)
[2020-03-01] MEDS: MELATONIN 3 MG TAB PO SCH (20:40)
[2020-03-01] MEDS: TAMSULOSIN HCL 0.4 MG CAP PO SCH (20:40)
[2020-03-01] MEDS: nitrofurantoin macrocrystaL 50 MG CAP PO SCH (20:41)
[2020-03-01] MEDS: MoRPHine SULFATE 2 MG/ML CARP IV PRN (23:40)
[2020-03-01] MEDS: HydrALAZINE HCL 20 MG/ML VIAL IV PRN (23:40)
[2020-03-02] MEDS: TRAMADOL HCL 50 MG TABLET PO PRN ×3 (01:12→17:15)
[2020-03-02] MEDS: HYDROCODONE/ACETAMINOPHEN 10/325 TAB PO PRN ×4 (01:13→20:23)
[2020-03-02 05:29] LABS: BUN Creatinine Ratio 28.5 (10-20); Calcium 8.8 mg/dl (8.5-10.1); Creatinine Clr Calc Pharmacy 34.3 ml/min; Est GFR (African American) 73.5; Est GFR (Non-African American) 63.4; Potassium 4.6 mmol/L (3.5-5.1)
[2020-03-02] MEDS: MoRPHine SULFATE 2 MG/ML CARP IV PRN (05:59)
[2020-03-02] MEDS: lisinopriL 20 MG TAB PO SCH (07:58)
[2020-03-02] MEDS: RIVAROXABAN 20 MG TAB PO SCH (07:58)
[2020-03-02] MEDS: predniSONE 5 MG TAB PO SCH (07:58)
[2020-03-02] MEDS: ASPIRIN 81 MG ECTAB PO SCH (07:58)
[2020-03-02] MEDS: DULOXETINE HCL 20 MG CAP PO SCH (07:58)
[2020-03-02] MEDS: sulfaSALAzine 500 MG TABEC PO SCH ×2 (07:58→20:23)
[2020-03-02] MEDS: ATORVASTATIN 20 MG TAB PO SCH (07:58)
[2020-03-02] MEDS: CELECOXIB 100 MG CAP PO SCH ×2 (07:58→20:23)
[2020-03-02] MEDS: CHOLECALCIFEROL 1,000 UNITS 25 MCG TAB PO SCH (07:58)
[2020-03-02] MEDS: CEROVITE ADV FORMULA TAB PO SCH (07:58)
[2020-03-02] MEDS: DOCUSATE SODIUM 100 MG CAP PO SCH ×2 (07:58→20:23)
[2020-03-02] MEDS: LIDOCAINE 5% 1 PATCH TD SCH ×2 (08:02→10:29)
[2020-03-02] MEDS: POLYETHYLENE (MIRALAX) 17 GM PACK PO SCH (09:01)
--- NOTE | 2020-03-02 11:14 | Orthopedic Progress Note ---
Date of Service March 02, 2020 Assessment & Plan (1) Trochanteric fracture of right femur: Patient unfortunately is not a candidate for injections due to being on Xarelto. Continue pain control per primary service, added Celebrex and Lidocaine patches to hip and back. She is not a candidate for surgical intervention for this nondisplaced greater trochanteric periprosthetic fracture. Continue protected weightbearing walker. Continue care per primary service. Follow-up in Dr. Santana office 2 weeks with repeat x-rays AP pelvis & AP & lateral left hip. Call [phone] for appointment. Admission and Anticipated Discharge Date Admission Date: February 29, 2020 Subjective Patient continuing with severe pain hip. Worsened overnight as she had sat up for first time yesterday for 4 hours. Review of Systems Review of Systems: All systems reviewed & are unremarkable except as noted in HPI & below Physical Exam Physical Exam: Laying comfortably in bed. Neuro unchanged. About to work with PT. Results & Data ([facility]) Vital Signs (Past 12 Hours) Vital Signs Temp Pulse Resp BP BP Pulse Ox 03/02/20 07:21 36.5 C 93 H 20 162/71 H 96 03/02/20 00:11 88 154/81 H 03/01/20 23:32 36.8 C 74 20 195/74 H 197/68 H 96
[2020-03-02] MEDS ORDERED: MAGNESIUM HYDROXIDE SUSP 30 ML UDC PO ONE (11:26)
[2020-03-02] MEDS ORDERED: SODIUM CHLORIDE 1 GM TABLET PO ONE (11:27)
[2020-03-02] MEDS: DOCUSATE SODIUM/SENNA 50/8.6MG TAB PO SCH (12:24)
--- NOTE | 2020-03-02 12:29 | Hospitalist Progress Note ---
Date of Service March 02, 2020 Assessment & Plan (1) Closed trochanteric fracture of hip: * Obs med/surg. Xray with ill-defined linear lucencies with equivocal cortical irregularity involving lateral cortex of RIGHT greater trochanter, suspicious for acute nondisplaced fracture. ?etiology as patient states she did not have any falls (outside of one at end of December/beginning of January). Unable to determine clear cause outside of possibility of unreported trauma. Vitamin D level low normal at 48.2 and on Vit D replacement therapy * Orthopedic consult -- appreciate assistance. Non-operative management at this time * PT/OT -- weightbearing as tolerated -->rec SNF at d/c * CM assisting with placement --> plans for [facility] with transport via son Ken. MISHRA already completed and negative * Discussed with orthopedic team and pain management team. Provided contact for pain management provider to coordinate ongoing care. --> Recommending initiating Celebrex. No platelet activity, so not as high risk for bleeding -- initiated evening 03/01 (2) Acute hip pain: * Ortho, pain management consults as above * Pain control -- Discontinued morphine today as patient resting more comfortably today and able to move without as much pain Continue celebrex as rec'd by orthopedics Did receive increased dose of prednisone 03/02 to help with inflammation --> improved and back on home 5mg daily for her RA Lidocaine to R lateral hip as well as lower back with resolution of sciatica-like pain Will order K-pad to see if this helps patient with comfort level as she reports more relief with heat than ice at home * Pain management consulted for possible injection -- no injection planned at this time as pt on Xarelto for recent hx PE. 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 --> Would need to consider MRI in an attempt to further define etiology of any radicular pain complaint. * Not currently a candidate for lumbar STELLA at this time 2/2 Xarelto therapy for recent hx PE * Lidoderm patch applied to the right hip region as well as lower back with improvement of radicular symptoms * Patient was encouraged utilize her prn medications as needed (5) Recurrent UTI: * Has been seen by Urology -- to be on continuous nitrofurantoin for prophylaxis. Hx bilateral nephrolithiasis. * UA without evidence of infection on admission. * Continue outpatient nitrofurantoin (6) HTN (hypertension): * Chronic. Controlled. * Elevated secondary to pain --> but now improved to 143/65 with what appears clinically as more adequate pain control as well as decreased amount of steroids * Continue home lisinopril 20mg * Hydralazine prn * Continue to monitor (7) Chronic kidney disease, stage 3a: * Chronic. * Cr stable at 0.83 (8) Hyperlipidemia: * Chronic, * Continue home atorvastatin (9) Rheumatoid arthritis: * Chronic. On sulfasalazine, prednisone 5mg daily outpatient * Continue sulfasalazine. * Had initially received increase dose of home prednisone at 40mg for stress dosing while inpatient with additional 20mg given to help with back/inflammation Now back on home prednisone 5mg daily * Continue to monitor (10) Hyponatremia: * Hx chronic hyponatremia. Had urine studies Sep 2019 with urine osm 446, urine sodium 34, serum osm 259 on admission --> consistent with hypovolemic hyponatremia at that time. TSH was normal (no signs of adrenal insufficiency). May need fluid restriction/oral sodium replacement if persists pending BMP in AM * Na low at 131 1gm sodium tablet today Of note, patient with apical pulmonary nodule which could be concerning f or malignancy given history of smoking. ?SIADH picture * BMP in AM (11) Anemia: * Hx of. H/h stable 13.4/41.6. No s/sx bleeding * MCV >100. Folate and B12 have been wnl in the past. See above * H/h stable 13.5/39.9 (12) DVT prophylaxis: * Xarelto, SCDs Dispo: likely discharge to [facility] tomorrow Admission and Anticipated Discharge Date Admission Date: February 29, 2020 Supervising Physician Co-Signing Physician Notes PA Supervision Note: I did not personally see or examine the patient today, but I verified all price points of RAMESH Veliz's assessment and plan with the following exceptions/additions: None I discussed the case today with Dr. Santana of Ortho Subjective Patient evaluated, resting in bed upon my arrival. Patient said she received pain medication this morning and that was helpful but reports she did have increased pain last night. No further pain radiating down her right leg as it had been on days prior, and she notes that the pain is solely in her right hip region as it had been on admission. She states the ice has been minimally effective but that she typically uses heat at home. Discussed that we can order a k-pad to see if this provides any better relief and that we have ordered her celebrex to help with her pain control. Patient does not that she has not had a bowel movement in several days. She states she has been passing flatus, but no BM as of yet. She states she does not have any abdominal pain at this time. Denies fevers, chills, chest pain, shortness of breath, n/v/d, dysuria at this time. Plan for removal of hagan but will utilize purewick/brief per discussion with nursing as she wears a brief at home for urinary incontinence that is chronic. Plans for discharge to [facility] tomorrow and she notes that she would like her son to take her if possible so that she will be able to see him prior to going to rehab. Discussed that we will reach out to CM to assist with setting this up. All questions/concerns addressed at this time. Review of Systems Review of Systems: All systems reviewed & are unremarkable except as noted in HPI & below Physical Exam Constitutional: WD/WN, vitals as above no acute distress and + uncomfortable Eyes: PERRL Neck: trachea midline, no thyromegaly Respiratory: normal respiratory effort; no respiratory distress and no labored breathing Auscultation: + diminished lung sounds (bases); no crackles and no wheezes Cardiovascular: RRR, no murmur, no edema Gastrointestinal (Abdomen): normal bowel sounds, soft, nontender, no hepatosplenomegaly Musculoskeletal: Head/Neck/Chest: normocephalic and head atraumatic Tender to palpation over region of RIGHT greater trochanter. Increased pain with any movement of right hip. No pain with AROM ankle. Calves nontender NVI 2+ pulses pt, dp pulses Neurologic: patellar DTR's 2+ bilat, sensation intact Psychiatric: A+Ox3, euthymic affect Lymphatic: no cervical or axillary lymphadenopathy Results & Data Results & Data ([facility]) Vital Signs (Past 12 Hours) Vital Signs Temp Pulse Resp BP Pulse Ox 03/02/20 07:21 36.5 C 93 H 20 162/71 H 96 Laboratory Results 03/02/20 Range/Units 04:58 Sodium 131 L (136-145) mmol/L Potassium 4.6 (3.5-5.1) mmol/L Chloride 98 (98-107) mmol/L Carbon Dioxide 29 (21-32) mmol/L Anion Gap 4.0 (3-11) BUN 24 H (7-18) mg/dl Creatinine 0.83 (0.6-1.2) mg/dl Est Cr Clr Drug Dosing 34.3 ml/min Est GFR ( Amer) 73.5 Est GFR (Non-Af Amer) 63.4 BUN/Creatinine Ratio 28.5 H (10-20) Glucose 96 (70-99) mg/dl Calcium 8.8 (8.5-10.1) mg/dl PG Care Time/CCT Total # of Minutes Spent Total Time Spent with Patient: Total time spent is greater than 50% in coordination of care (as documented) at patient's floor/unit and/or counseling patient: Coding Level of Care Code 91202 Subseq Hosp Care Lvl 3 Diagnoses Closed trochanteric fracture of hip S72.101A Encounter type: initial encounter Laterality: right Acute hip pain M25.551 Laterality: right History of pulmonary embolism Z86.711 Degenerative joint disease (DJD) of lumbar spine M47.816 Recurrent UTI N39.0 HTN (hypertension) I10 Chronic kidney disease, stage 3a N18.3 Hyperlipidemia E78.5 Hyperlipidemia type: unspecified Rheumatoid arthritis M06.9 Rheumatoid arthritis location: unspecified site Rheumatoid factor presence: unspecified presence Hyponatremia E87.1 Anemia D64.9 DVT prophylaxis Z29.9 (1) Acute hip pain Laterality: right Qualified Code(s): M25.551 - Pain in right hip (2) Rheumatoid arthritis Rheumatoid arthritis location: unspecified site Rheumatoid factor presence: unspecified presence Qualified Code(s): M06.9 - Rheumatoid arthritis, unspecified (3) Closed trochanteric fracture of hip Encounter type: initial encounter Laterality: right Qualified Code(s): S72.101A - Unspecified trochanteric fracture of right femur, initial encounter for closed fracture (4) Hyperlipidemia Hyperlipidemia type: unspecified Qualified Code(s): E78.5 - Hyperlipidemia, unspecified
[2020-03-02] MEDS ORDERED: SODIUM CHLORIDE 0.9% 500 ML IV SCH (17:00)
[2020-03-02] MEDS: TAMSULOSIN HCL 0.4 MG CAP PO SCH (20:23)
[2020-03-02] MEDS: MELATONIN 3 MG TAB PO SCH (20:23)
[2020-03-02] MEDS: nitrofurantoin macrocrystaL 50 MG CAP PO SCH (20:23)
[2020-03-03] MEDS: HYDROCODONE/ACETAMINOPHEN 10/325 TAB PO PRN ×2 (00:42→06:30)
[2020-03-03] MEDS ORDERED: MoRPHine SULFATE 2 MG/ML CARP IV STA (03:03)
[2020-03-03] MEDS: HydrALAZINE HCL 20 MG/ML VIAL IV PRN (06:31)
[2020-03-03 07:09] LABS: BUN Creatinine Ratio 31.5 (10-20); Calcium 8.5 mg/dl (8.5-10.1); Creatinine Clr Calc Pharmacy 31.6 ml/min; Est GFR (African American) 66.6; Est GFR (Non-African American) 57.5; Potassium 4.1 mmol/L (3.5-5.1)
[2020-03-03] MEDS: RIVAROXABAN 20 MG TAB PO SCH (08:13)
[2020-03-03] MEDS: TRAMADOL HCL 50 MG TABLET PO PRN (08:13)
[2020-03-03] MEDS ORDERED: MAGNESIUM CITRATE 296 ML/BTL PO STA (09:09)
[2020-03-03] MEDS: DOCUSATE SODIUM 100 MG CAP PO SCH ×2 (09:42→21:26)
[2020-03-03] MEDS: LIDOCAINE 5% 1 PATCH TD SCH ×2 (09:42)
[2020-03-03] MEDS: ATORVASTATIN 20 MG TAB PO SCH (09:42)
[2020-03-03] MEDS: DULOXETINE HCL 20 MG CAP PO SCH (09:43)
[2020-03-03] MEDS: CEROVITE ADV FORMULA TAB PO SCH (09:43)
[2020-03-03] MEDS: sulfaSALAzine 500 MG TABEC PO SCH ×2 (09:43→21:26)
[2020-03-03] MEDS: predniSONE 5 MG TAB PO SCH (09:43)
[2020-03-03] MEDS: DOCUSATE SODIUM/SENNA 50/8.6MG TAB PO SCH (09:43)
[2020-03-03] MEDS: CELECOXIB 100 MG CAP PO SCH ×2 (09:43→21:26)
[2020-03-03] MEDS: lisinopriL 20 MG TAB PO SCH (09:43)
[2020-03-03] MEDS: ASPIRIN 81 MG ECTAB PO SCH (09:43)
[2020-03-03] MEDS: CHOLECALCIFEROL 1,000 UNITS 25 MCG TAB PO SCH (09:43)
[2020-03-03] MEDS: POLYETHYLENE (MIRALAX) 17 GM PACK PO SCH (09:44)
--- NOTE | 2020-03-03 10:53 | Hospitalist Progress Note ---
Date of Service March 03, 2020 Assessment & Plan (1) Closed trochanteric fracture of hip: * Obs med/surg. Xray with ill-defined linear lucencies with equivocal cortical irregularity involving lateral cortex of RIGHT greater trochanter, suspicious for acute nondisplaced fracture. ?etiology as patient states she did not have any falls (outside of one at end of December/beginning of January). Unable to determine clear cause outside of possibility of unreported trauma. Vitamin D level low normal at 48.2 and on Vit D replacement therapy * Orthopedic consult -- appreciate assistance. Non-operative management at this time * PT/OT -- weightbearing as tolerated -->rec SNF at d/c * CM assisting with placement --> plans for [facility] with transport via son Ken. MISHRA already completed and negative * Discussed with orthopedic team and pain management team. Provided contact for pain management provider to coordinate ongoing care. --> Recommending initiating Celebrex. No platelet activity, so not as high risk for bleeding -- initiated evening 03/01 (2) Acute hip pain: * Ortho, pain management consults as above * Pain control -- Discontinued morphine today as patient resting more comfortably today and able to move without as much pain Continue celebrex as rec'd by orthopedics Did receive increased dose of prednisone 03/02 to help with inflammation --> improved and back on home 5mg daily for her RA Lidocaine to R lateral hip as well as lower back with resolution of sciatica-like pain K-pad * Pain management consulted for possible injection -- no injection planned at this time as pt on Xarelto for recent hx PE. 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 --> Would need to consider MRI in an attempt to further define etiology of any radicular pain complaint. * Not currently a candidate for lumbar STELLA at this time 2/2 Xarelto therapy for recent hx PE * Lidoderm patch applied to the right hip region as well as lower back with improvement of radicular symptoms * Patient was encouraged utilize her prn medications as needed (5) Recurrent UTI: * Has been seen by Urology -- to be on continuous nitrofurantoin for prophylaxis. Hx bilateral nephrolithiasis. * UA without evidence of infection on admission. * Continue outpatient nitrofurantoin (6) HTN (hypertension): * Has been consisitently elevated secondary to pain. Did have asymptomatic drop in BP to 94/54 afternoon 03/03 * Initially ordered amlodipine but on hold as patient BP improved to 128/64 after pain controlled * Continue home lisinopril 20mg * Hydralazine prn * Continue to monitor --> Vital signs changed to Q4H (7) Chronic kidney disease, stage 3a: * Chronic. * Cr stable at 0.9 (8) Hyperlipidemia: * Chronic, * Continue home atorvastatin (9) Rheumatoid arthritis: * Chronic. On sulfasalazine, prednisone 5mg daily outpatient * Continue sulfasalazine. * Had initially received increase dose of home prednisone at 40mg for stress dosing while inpatient with additional 20mg given to help with back/inflammation Now back on home prednisone 5mg daily * Continue to monitor (10) Hyponatremia: * Hx chronic hyponatremia. Had urine studies Sep 2019 with urine osm 446, urine sodium 34, serum osm 259 on admission --> consistent with hypovolemic hy ponatremia at that time. TSH was normal (no signs of adrenal insufficiency). May need fluid restriction/oral sodium replacement if persists pending BMP in AM. Received 1gm Na 03/02 in addition to 500cc NSS. * Na low at 132, around pt's baseline Of note, patient with apical pulmonary nodule which could be concerning for malignancy given history of smoking. ?SIADH picture * BMP in AM (11) Anemia: * Hx of. H/h stable 13.4/41.6. No s/sx bleeding * MCV >100. Folate and B12 have been wnl in the past. See above * H/h stable (12) Constipation: * Mag citrate x1 with BM today. Pt had not had BM since 02/28, secondary to limited mobility and pain medications * RESOLVED -- continue daily miralax, colace while on pain medication to prevent further constipation (13) DVT prophylaxis: * Leon Barron Dispo: likely discharge to [facility] tomorrow if pain controlled with oral morphine Admission and Anticipated Discharge Date Admission Date: February 29, 2020 Supervising Physician Co-Signing Physician Notes PA Supervision Note: I did not personally see or examine the patient today, but I verified all price points of RAMESH Veliz's assessment and plan with the following exceptions/additions: None Subjective Patient evaluated this morning. She states she had a rough night again. Discussed adding voltaren gel and switching over to oral morphine in hopes of gaining better pain control. Patient agreeable at this time. Reentry into room to assess patient's pain after PO morphine with improvement of control. Afternoon BP dropped to 90s systolically -- patient denies having any lightheadedness/dizziness or syncopal episode. She states she was lying flat resting comfortably when they checked her vitals earlier. Discussed with son Trevor who is concerned regarding having set plan and adequate control prior to discharge to [facility] as they have had a bad experience in the past with discharging of their father and feeling it was too early for discharge and he ended up passing two days later. Discussed that we will ensure a plan to meet his mother's needs prior to her discharge for rehab. Review of Systems Review of Systems: All systems reviewed & are unremarkable except as noted in HPI & below Physical Exam Constitutional: WD/WN, vitals as above no acute distress Eyes: PERRL Neck: trachea midline, no thyromegaly Respiratory: normal respiratory effort; no respiratory distress and no labored breathing Auscultation: + diminished lung sounds (bases); no crackles and no wheezes Cardiovascular: RRR, no murmur, no edema Gastrointestinal (Abdomen): normal bowel sounds, soft, nontender, no hepatosplenomegaly Musculoskeletal: Head/Neck/Chest: normocephalic and head atraumatic point tenderness to palpation over R greater trochanter Neurologic: patellar DTR's 2+ bilat, sensation intact Psychiatric: A+Ox3, euthymic affect Lymphatic: no cervical or axillary lymphadenopathy Results & Data Results & Data ([facility]) Vital Signs (Past 12 Hours) Vital Signs Temp Pulse Resp BP BP Pulse Ox 03/03/20 06:31 188/81 H 03/03/20 06:23 36.8 C 88 19 182/78 H 96 03/02/20 23:25 36.6 C 89 20 188/81 H 93 PG Care Time/CCT Total # of Minutes Spent Total Time Spent with Patient: Total time spent is greater than 50% in coordination of care (as documented) at patient's floor/unit and/or counseling patient: Coding Level of Care Code 50893 Subseq Hosp Care Lvl 2 Diagnoses Closed trochanteric fracture of hip S72.101A Encounter type: initial encounter Laterality: right Acute hip pain M25.551 Laterality: right History of pulmonary embolism Z86.711 Degenerative joint disease (DJD) of lumbar spine M47.816 Recurrent UTI N39.0 HTN (hypertension) I10 Chronic kidney disease, stage 3a N18.3 Hyperlipidemia E78.5 Hyperlipidemia type: unspecified Rheumatoid arthritis M06.9 Rheumatoid arthritis location: unspecified site Rheumatoid factor presence: unspecified presence Hyponatremia E87.1 Anemia D64.9 Constipation K59.00 DVT prophylaxis Z29.9 (1) Acute hip pain Laterality: right Qualified Code(s): M25.551 - Pain in right hip (2) Rheumatoid arthritis Rheumatoid arthritis location: unspecified site Rheumatoid factor presence: unspecified presence Qualified Code(s): M06.9 - Rheumatoid arthritis, unspecified (3) Closed trochanteric fracture of hip Encounter type: initial encounter Laterality: right Qualified Code(s): S72.101A - Unspecified trochanteric fracture of right femur, initial encounter for closed fracture (4) Hyperlipidemia Hyperlipidemia type: unspecified Qualified Code(s): E78.5 - Hyperlipidemia, unspecified
[2020-03-03] MEDS: DICLOFENAC SOD 1% GEL 100 GM TUBE EXT SCH ×3 (11:07→21:29)
[2020-03-03] MEDS: MoRPHine SULFATE IR 15 MG TAB (IMMEDIATE RELEASE) PO PRN ×2 (11:07→15:47)
[2020-03-03] MEDS ORDERED: AMLODIPINE BESYLATE 5 MG TAB PO SCH (14:00)
[2020-03-03] MEDS: nitrofurantoin macrocrystaL 50 MG CAP PO SCH (21:25)
[2020-03-03] MEDS: MELATONIN 3 MG TAB PO SCH (21:25)
[2020-03-03] MEDS: TAMSULOSIN HCL 0.4 MG CAP PO SCH (21:26)
[2020-03-04] MEDS: DICLOFENAC SOD 1% GEL 100 GM TUBE EXT SCH ×2 (04:00→09:42)
[2020-03-04] MEDS: MoRPHine SULFATE IR 15 MG TAB (IMMEDIATE RELEASE) PO PRN (06:24)
[2020-03-04 09:09] LABS: Hematocrit (blood only) 40.3 % (37-47); Hemoglobin 13.2 g/dL (12.0-16.0); Mean Corpuscular Hemoglobin 32.7 pg (25-34); Mean Corpuscular Hgb Conc 32.8 g/dL (32-36); Mean Corpuscular Volume 99.8 fL (80-100); Mean Platelet Volume 9.6 fL (7.4-10.4); Platelet Count 295 K/uL (130-400); RDW Coefficient of Variation 13.2 % (11.5-14.5); RDW Standard Deviation 47.9 fL (36.4-46.3); Red Blood Count 4.04 M/uL (4.2-5.4); White Blood Count 7.43 K/uL (4.8-10.8)
[2020-03-04 09:32] LABS: BUN Creatinine Ratio 29.3 (10-20); Calcium 8.6 mg/dl (8.5-10.1); Creatinine Clr Calc Pharmacy 34.3 ml/min; Est GFR (African American) 73.5; Est GFR (Non-African American) 63.4; Potassium 4.5 mmol/L (3.5-5.1)
[2020-03-04] MEDS: DOCUSATE SODIUM 100 MG CAP PO SCH (09:40)
[2020-03-04] MEDS: POLYETHYLENE (MIRALAX) 17 GM PACK PO SCH (09:40)
[2020-03-04] MEDS: DOCUSATE SODIUM/SENNA 50/8.6MG TAB PO SCH (09:40)
[2020-03-04] MEDS: CEROVITE ADV FORMULA TAB PO SCH (09:41)
[2020-03-04] MEDS: RIVAROXABAN 20 MG TAB PO SCH (09:41)
[2020-03-04] MEDS: CELECOXIB 100 MG CAP PO SCH (09:41)
[2020-03-04] MEDS: sulfaSALAzine 500 MG TABEC PO SCH (09:41)
[2020-03-04] MEDS: ASPIRIN 81 MG ECTAB PO SCH (09:42)
[2020-03-04] MEDS: CHOLECALCIFEROL 1,000 UNITS 25 MCG TAB PO SCH (09:42)
[2020-03-04] MEDS: lisinopriL 20 MG TAB PO SCH (09:42)
[2020-03-04] MEDS: ATORVASTATIN 20 MG TAB PO SCH (09:42)
[2020-03-04] MEDS: DULOXETINE HCL 20 MG CAP PO SCH (09:42)
[2020-03-04] MEDS: predniSONE 5 MG TAB PO SCH (09:42)
[2020-03-04] MEDS: LIDOCAINE 5% 1 PATCH TD SCH ×2 (09:43)
--- NOTE | 2020-03-04 10:01 | Discharge Summary ---
Date of Service March 04, 2020 Admission HPI Per Admitting Provider 89 year old female with PMH significant for HTN, HLD, CKD III, RA, urge incontinence, anxiety/depression presented to the emergency department with worsening severe right hip pain since last evening. Patient had a right hip replacement earlier this year by Dr. Santana in September 2019 with numerous admissions following for hyponatremia from poor PO intake as well as recurrent UTI and complicated by PE (secondary to lack of mobility) and initiated on Xarelto. Patient states her right hip pain has been chronic but has not been right since surgery. She states her pain increased last night and she was unable to get c omfortable despite Tylenol and Ultram. She denies recent falls in the past couple of weeks but did have a fall in December 2019. She states her pain was a "25/10" when she got to the ER and has been experiencing sharp shooting pain along with some numbness/tingling down her right leg. She states the pain medication in the ER has brought the pain down to a 2/10 but still has some increased pain in her right buttock that is worsened by movement. Associated nausea with pain and shortness of breath secondary to pain with movement. Denies shortness of breath at baseline or calf tenderness. States she did have some sweats last night as well secondary to pain but denies any fever or chills since that time. Denies chest pain, visual changes, abdominal pain, diarrhea/constipation, bowel incontinence. Endorses urinary incontinence but she states she wears a pad daily. She states she got home approximately two weeks ago from [facility] but she had bad experiences at both [facility] and [facility] and if rehab is necessary that she would like to look into other options. Admission Exam Per Admitting Provider Constitutional: WD/WN, vitals as above no acute distress Eyes: PERRL ENMT: dry mm hearing impairment b/l Neck: trachea midline, no thyromegaly Respiratory: normal respiratory effort; no respiratory distress and no labored breathing Auscultation: + diminished lung sounds (bases); no crackles and no wheezes Cardiovascular: RRR, no murmur, no edema Musculoskeletal: tender to palpation over region R greater trochanter Pain with active and passive ROM R hip, internal/external rotation. Non-tender with ROM about the knee strength 5/5 LLE, 4/5 RLE with dorsiflexion Skin: dressing to R hip, dated 02/27 7:40 am c/d/i no erythema or evidence of drainage Neurologic: patellar DTR's 2+ bilat, sensation intact Psychiatric: A+Ox3, euthymic affect Lymphatic: no cervical or axillary lymphadenopathy Principal Diagnosis RIGHT CLOSED GREATER TROCHANTERIC FRACTURE Discharge Exam Constitutional WD/WN, vitals as above no acute distress Eyes PERRL ENMT external ear and nose normal, oropharynx normal Neck trachea midline, no thyromegaly Respiratory normal respiratory effort; no respiratory distress and no labored breathing Auscultation: + diminished lung sounds (bases); no crackles and no wheezes Cardiovascular RRR, no murmur, no edema Gastrointestinal (Abdomen) normal bowel sounds, soft, nontender, no hepatosplenomegaly Musculoskeletal Head/Neck/Chest: normocephalic and head atraumatic strength 4/5 tender to palpation over R greater trochanter at site of healed incision NVI pulses 2+ pt, dp bilaterally Lidocaine patches to R lateral hip/buttock Skin no rashes, warm and dry Neurologic patellar DTR's 2+ bilat, sensation intact Psychiatric A+Ox3, euthymic affect Lymphatic no cervical or axillary lymphadenopathy Discharge Data Allergies Allergy/AdvReac Type Severity Reaction Status Date / Time Sulfa (Sulfonamide Allergy Intermediate Rash Verified 02/28/20 08:00 Antibiotics) mirabegron [From Myrbetriq] AdvReac Intermediate hypertensio Verified 02/28/20 08:00 n nicotine AdvReac Mild PATCH-SKIN Verified 02/28/20 08:00 IRRITATION shrimp AdvReac Mild Photosensit Verified 02/28/20 08:00 ivity Consultations 02/28/20 06:53 Consult Case Management - Discharge Planning Routine 02/28/20 09:54 ED Decision to Admit Stat 02/28/20 13:04 Consult Case Management - Discharge Planning Routine Consult Orthopedic Surgery Routine 02/29/20 09:20 Consult Pain Management Routine Ordered Studies 02/27 CXR Pelvis XRAY Femur XRAY Hospital Course (1) Closed trochanteric fracture of hip: * Obs med/surg. Xray with ill-defined linear lucencies with equivocal cortical irregularity involving lateral cortex of RIGHT greater trochanter, suspicious for acute nondisplaced fracture. ?etiology as patient states she did not have any falls (outside of one at end of December/beginning of January). Unable to determine clear cause outside of possibility of unreported trauma. Vitamin D level low normal at 48.2 and on Vit D replacement therapy * Orthopedic consult. Non-operative management at this time. WBAT and f/u in 2 w eeks outpatient * PT/OT evaluations with rec SNF at discharge --> CM asssited with placement for [facility], transport via [facility] Pain management for Acute Hip Pain Multiple agents used including increased prednisone for sciatic type pain Pain management consulted but patient not candidate for EIS injection secondary to Xarelto therapy Started and continued on celebrex 100mg BID ---No platelet activity, so not as high risk for bleeding. H/H stable Started and continued at discharge -- lidocaine patches to R lateral hip and low back Voltaren gel prn --> continued Morphine 7.5mg PO as needed for pain as norco/tramadol ineffective. Patient only with relief prior to PO morphine with IV 2mg which did not help as much as the 7.5mg dosing -- continued prn Rec'd to continue tylenol as needed for pain and to avoid tramadol as patient with chronically low Na, likely component of tramadol use, which was more frequent while inpatient but did not provide much relief per patient -- continu ed on home QAM/HS dosing COVID-19 testing for placement negative (2) Acute hip pain: * Ortho, pain management consults as above * Pain control -- as above --> NOW WELL CONTROLLED 03/03-03/04 Continued celebrex as rec'd by orthopedics Did receive increased dose of prednisone 03/02 to help with inflammation --> improved and back on home 5mg daily for her RA Lidocaine to R lateral hip as well as lower back with resolution of sciatica-like pain K-pad * Pain management consulted for possible injection -- no injection planned at this time as pt on Xarelto for recent hx PE. 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 * Not currently a candidate for lumbar STELLA at this time 2/2 Xarelto therapy for recent hx PE * Lidoderm patch applied to the right hip region as well as lower back with improvement of radicular symptoms * Patient was encouraged utilize her prn medications as needed (5) Recurrent UTI: * Has been seen by Urology -- to be on continuous nitrofurantoin for prophylaxis. Hx bilateral nephrolithiasis. * UA without evidence of infection on admission. * Continued outpatient nitrofurantoin (6) HTN (hypertension): * Had been consistently elevated secondary to pain. * Continued home lisinopril 20mg * Hydralazine prn * BP much improved with adequate pain controll -- BP 134/69 at discharge (7) Chronic kidney disease, stage 3a: * Chronic. Cr stable (8) Hyperlipidemia: * Chronic, * Continue home atorvastatin (9) Rheumatoid arthritis: * Chronic. On sulfasalazine, prednisone 5mg daily outpatient * Continued sulfasalazine. * Had initially received increase dose of home prednisone at 40mg for stress dosing while inpatient with additional 20mg given to help with back/inflammation Now back on home prednisone 5mg daily --> continued at discharge (10) Hyponatremia: * Hx chronic hyponatremia. Had urine studies Sep 2019 with urine osm 446, urine sodium 34, serum osm 259 on admission --> consistent with hypovolemic hyponatremia at that time. TSH was normal (no signs of adrenal insufficiency). May need fluid restriction/oral sodium replacement if persists pending BMP in AM. Received 1gm Na 03/02 in addition to 500cc NSS. * Na low at 131, around pt's baseline Of note, patient with apical pulmonary nodule which could be concerning for malignancy given history of smoking. ?SIADH picture --> follow up outpatient * BMP outpatient in next 3 days -- lab slip provided (11) Anemia: * Hx of. H/h stable. No s/sx bleeding * MCV >100. Folate and B12 have been wnl in the past. See above * H/h stable (12) Constipation: * Mag citrate x1 with BM today. Pt had not had BM since 02/28, secondary to limited mobility and pain medications * RESOLVED -- continue daily miralax, colace while on pain medication to prevent further constipation (13) DVT prophylaxis: * Xarelto, SCDs Discharged with family to [facility] Total Time Total Time Spent Total Time Spent (In Minutes): 75 Discharge Plan Discharge Items Patient Disposition: Transfer Assisted Fac Reason For Visit: RIGHT HIP NON-DISPLACED FRACTURE Discharge Diagnosis: Right Non-Displaced Hip Fracture Condition on Discharge: Good Goals: You have been hospitalized for an acute medical problem. During your stay at [facility], we have made an effort to correct the problem that brought you to the hospital while keeping you as comfortable as possible. Medications were used to bring your condition under control and your discharge instructions will include directions for any medications you should take after leaving the hospital. Please make sure you see your Primary Care Provider as part of your follow up plan. Activity: As commented below Activity Comment: Weightbearing as tolerated with walker Non-emergency contact: Primary Care Provider Call non-emergency contact if: you have any medication questions, your symptoms worsen and your pain is worsening Follow-up/Referrals: Ben Schmidt [Primary Care Provider] - Albert Santana MD [Physician] - (in 2 weeks, call for appointment) Diet: Heart Healthy Ambulatory Orders: Basic Metabolic Panel (Routine) Timeframe: 3 Days Location: Determined by Patient Ordered By: Hemalatha Veliz Complete Blood Count with Diff (Timed) Timeframe: 3 Days Location: Determined by Patient Ordered By: Hemalatha Veliz Addtl Attending Provider Instructions: You have been hospitalized for an acute RIGHT hip fracture. -- Orthopedics was consulted and determined that this is a fracture that is managed with conservative treatment and weight bearing as tolerated with pain control. To achieve adequate pain control, you are being sent with the following to control your pain in this acute period: * Morphine 7.5mg tablet by mouth every 4-6 hours as needed for pain You may also utilize Tylenol for any other pain, but please make not to exceed 3,000mg in a 24 hour period of time. * Lidocaine patches -- to be applied transdermally to RIGHT lateral hip and low back daily to help with both your hip and sciatica pain * Celebrex 100mg tablet by mouth TWICE DAILY to help with inflammation/pain *Please note, as you have been on Xarelto for blood clot, this does increase your risk of bleeding. Please contact medical provider immediately if you have any increased bleeding, blood in your stool or urine. Your blood counts have remained stable while on this medication in the hospital. Repeat labs slips have been provided to have checked in the next three days to make sure they remain stable. * Voltaren gel -- to be applied topically to RIGHT hip/low You may alternate ice/heat as needed for comfort. Would recommend utilizing less tramadol in the future as your sodium appears to be chronically low, but you have been asymptomatic from this during admission and this medication does tend to cause lowering of your sodium. You are also being sent with daily miralax and colace to take while you are on pain medication to prevent constipation, which can worsen your pain. You should follow up with Dr. Santana in the next 2 weeks for follow up of your fracture and repeat imaging to ensure proper wound healing. Their office number is [phone] Please make sure to continue to weight bear as tolerated to improve your strength. Remember to stay well hydrated. Please follow up with your primary care provider in the next week. Please report to the emergency room if you experience any chest pain, shortness of breath, increased pain, fever, or for any symptoms that are concerning for you. It has been a pleasure being apart of the medical team providing for you while you have been in the hospital. Take care! Addtl Gambling Counsellor Provider Instructions: Weight bear as tolerated bilateral lower extremities Use walker to assist with ambulation Ice to hip as needed for comfort Follow up with Dr. Santana in approximately 2 weeks, call [phone] to schedule an appointment. No hip precautions necessary for greater trochanter hip fracture. Pending Studies at Discharge: No Stand-Alone Forms: My [facility] Skilled Items Patient informed of condition?: Yes DNR: No Discharge Level of Care: Skilled Communicable Disease: No Discharge Prognosis: Improving Lines: None Urinary Catheter: No Medications and DC Order Prescriptions: New celecoxib [Celebrex] 100 mg Capsule 100 mg PO BID Qty: 30 RF: 0 diclofenac sodium [Voltaren] 1 % Gel 2 g EXT Q6H Qty: 100 RF: 0 morphine 15 mg Tablet 7.5 mg PO Q4H PRN (Reason: pain) Qty: 18 RF: 0 sennosides-docusate sodium [Senokot-S] 8.6-50 mg Tablet 1 tab PO QAM Qty: 30 RF: 0 lidocaine 5 % Adhesive Patch,Medicated 1 patch transdermal QAM Qty: 15 RF: 0 lidocaine 5 % Adhesive Patch,Medicated 1 patch transdermal QAM Qty: 15 RF: 0 tramadol 50 mg tablet 50 mg PO DAILY PRN (Reason: pain) Qty: 14 RF: 0 Discontinued tramadol 50 mg tablet 50 mg PO AMHS RF: 0 No Action tamsulosin 0.4 mg capsule 0.4 mg PO HS Qty: 30 RF: 3 nitrofurantoin macrocrystal 50 mg capsule 50 mg PO HS Qty: 90 RF: 1 fluconazole [Diflucan] 100 mg tablet 100 mg PO DAILY Qty: 3 RF: 0 polyethylene glycol 3350 [Miralax] 17 gram Powder In Packet 17 g PO QAM PRN (Reason: Constipation) RF: 0 lisinopril 20 mg Tablet 20 mg PO QAM RF: 0 Xarelto 20 mg tablet 20 mg PO QAM RF: 0 sulfasalazine 500 mg tablet,delayed release (DR/EC) 500 mg PO BID RF: 0 melatonin 3 mg Tablet 6 mg PO HS RF: 0 acetaminophen 500 mg Tablet 500 mg PO UD RF: 0 Cbd Oil 1 ml PO HS RF: 0 aspirin 81 mg Tablet,Delayed Release (Dr/Ec) 81 mg PO BID RF: 0 Centrum Silver Women 8 mg iron-400 mcg-300 mcg Tablet 1 tab PO QAM RF: 0 prednisone 10 mg tablet 5 mg PO QAM RF: 0 atorvastatin 20 mg tablet 20 mg PO QAM RF: 0 duloxetine [Cymbalta] 20 mg capsule,delayed release(DR/EC) 20 mg PO QAM RF: 0 cholecalciferol (vitamin D3) [Vitamin D3] 50 mcg (2,000 unit) Capsule 2,000 unit PO QAM RF: 0 acetaminophen [Tylenol Extra Strength] 500 mg Tablet 1,000 mg PO TID RF: 0 Discharge Orders: Discharge Order (Routine); Ordered 03/04/20 Ordered By: Hemalatha Veliz Admission Data Admit Date/Time: 02/29/20 16:31 Attending Provider: Alessandra Sultana Admit Provider: Eliu Ellis Primary Care Provider: Ben Schmidt Other Providers: Alessandra Sultana ; Albert Santana ; [facility] ; Baltazar Sheikh ; Kofi Rausch [facility] Other Interventions: Discharge Summary Assessment (RN) Last Done: 03/04/20 11:07 DC Date/Time DO NOT enter until pt leaves facility: 03/04/20 12:58 Supervising Physician Co-Signing Physician Notes PA Supervision Note: I personally saw and examined the patient. I verified all price points and agree with RAMESH Veliz with the following exceptions and/or additions: Pt doing well, pain is controlled. VSS NAD, AAOx3 RRR no mgr CTAB no wcr Ext +TTP pver rt greater trochanter, no edema Skin no rashes 89 yo female here with greater trochanter fracture, stable for rehab placement. Coding Level of Care Code D/C Day Management >30 mins Diagnoses Closed trochanteric fracture of hip S72.101A Encounter type: initial encounter Laterality: right Acute hip pain M25.551 Laterality: right History of pulmonary embolism Z86.711 Degenerative joint disease (DJD) of lumbar spine M47.816 Recurrent UTI N39.0 HTN (hypertension) I10 Chronic kidney disease, stage 3a N18.3 Hyperlipidemia E78.5 Hyperlipidemia type: unspecified Rheumatoid arthritis M06.9 Rheumatoid arthritis location: unspecified site Rheumatoid factor presence: unspecified presence Hyponatremia E87.1 Anemia D64.9 Constipation K59.00 DVT prophylaxis Z29.9
[2020-03-04 15:19] LABS: Vitamin D 1,25 17 pg/mL (18-72); Vitamin D3,1,25 17 pg/mL
== END 2020-03-04 12:58 | DRG 536 ==
LOC: ED 06:48 → 3W 06:48 → SUATTDRO 11:03 → 3W 12:25